=== PATIENT | female | born 1935 | race Caucasian/White ===

== ENCOUNTER → 2016-06-18 | Day surgery (SDC) | payer OTHER ==
[2016-06-02 12:40] VITALS: BMI 31.0
[~2016-06-18] VITALS: Ht 157.5 cm; Wt 77.3 kg
[~2016-06-18] MED LIST: AMLO-110 PO; APR10 PO; APR50 PO; CEFD300C2 PO; CLOP1TAB15 PO; EFF/375 PO; EpHEDrine SULFATE INJ 50 MG/ML AMP ONE; FURO-85 PO; INSUINJ14 SC; INSUINJ4 SC; LABETALOL HCL IV 5 MG/ML 20ML IV ONE; LIDOCAINE HCL 2% 2 ML VIAL (20MG/ML) ONE; LPR25 PO; LPT40 PO; LSN10 PO; LSN25 PO; MECL1TAB42 PO; METO25TA56 PO; MIDAZOLAM HCL 1 MG/ML 2ML VIAL ONE; ONDANSETRON INJ 2 MG/ML 2 ML VIAL ONE; PROPOFOL IV EMULSION 10 MG/ML 20 ML VIAL IV ONE; PXL/10 PO; SODIUM CHLORIDE 0.9% 500ML 500 ML IV ONE; VENL37.593 PO
[2016-06-18 14:55] VITALS: TEMP 36.8
[2016-06-18 14:58] VITALS: Ht 157.5 cm; Wt 77.3 kg
--- NOTE | 2016-06-18 16:13 | Discharge Instructions ---
Endoscopy Patient Instructions Date / Procedure(s) Performed Jun 18, 2016. EGD Allergy Information Coded Allergies: Acetaminophen (Verified Allergy, Unknown, SWEATING, 06/02/16) Amitriptyline (Verified Allergy, Unknown, BLURRED DOUBLE VISION, 06/02/16) Ciprofloxacin (Verified Allergy, Unknown, itshiness,red streak, 06/18/16) PT RECEIVED CIPRO 400MG IV. DEVELOPED ITCHINESS AND RED STREAKS UP ARM. CIPRO STOPPED, GIVEN BENADRYL 50 MG PO. tolerated Levaquin 12/25/13 admission Gabapentin (Verified Allergy, Unknown, SHAKES,VISION CHANGES, 06/02/16) Guaifenesin (Verified Allergy, Unknown, UNKNOWN, 06/02/16) Latex1 -Allergic Contact Dermititis (Verified Allergy, Unknown, SKIN GETS RAW-PT HAS NO RECOLLECTION, 06/02/16) Meloxicam (Verified Allergy, Unknown, DIARRHEA, 06/02/16) Metformin (Verified Allergy, Unknown, HOT FLASHES, 06/02/16) Metronidazole (Verified Allergy, Unknown, UNKNOWN, 06/02/16) Penicillins (Verified Allergy, Unknown, INJECTION UNKNOWN, 06/02/16) Pioglitazone (Verified Allergy, Unknown, SORE THROAT,EAts excessively, 06/02) Pregabalin (Verified Allergy, Unknown, DIZZINESS, SLEEPY, 06/02/16) Rofecoxib (Verified Allergy, Unknown, UNKNOWN, 06/02/16) Rosuvastatin (Verified Allergy, Unknown, UNKNOWN, 06/02/16) Simvastatin (Verified Allergy, Unknown, UNKNOWN, 06/02/16) Sulfa Antibiotics (Verified Allergy, Unknown, HIVES, 06/02/16) Tramadol (Verified Allergy, Unknown, SWEATING, 06/02/16) Tricyclic Antidepressants (Verified Allergy, Unknown, UNKNOWN, 06/02/16) Discharge Date / Findings Jun 18, 2016. gastritis duodenal stricture Medication Instructions Restart Stopped Medication(s): Reported Home Medications Medications Dose Route/Sig Max Daily Dose Days Date Category Dose Instructions Plavix (Clopidogrel Bisulfate) 75 Mg Tab 75 Mg PO DAILY 06/18/16 Reported Effexor (Venlafaxine Hcl) 37.5 Mg Tab 37.5 Mg PO QAM 11/06/15 Reported Lopressor (Metoprolol Tartrate) 25 Mg Tab 25 Mg PO BID 06/26/15 Reported Meclizine Hcl 25 Mg Tab 1 Tab PO TID PRN 06/26/15 Reported Norvasc (Amlodipine Besylate) 5 Mg Tab 5 Mg PO BID 02/01/15 Reported Lasix (Furosemide) 20 Mg Tab 20 Mg PO BID 02/01/15 Reported AM/1500 Hydralazine HCl 10 Mg Tab 10 Mg PO TID 02/01/15 Reported Paroxetine HCl (Paroxetine) 10 Mg Tab 20 Mg PO QAM 12/25/13 Reported Atorvastatin Calcium (Atorvastatin) 40 Mg Tab 40 Mg PO QAM 12/25/13 Reported Novolog Penfill (Insulin Aspart) 100 Unit/ Inj 12 Units SC TIDM 12/25/13 Reported Lantus Solostar Pen (Insulin Glargine) 100 Unit/ Inj 24 Units SC HS 12/25/13 Reported Prilosec 40 mg daily PO Reported Home Medications Medications Dose Route/Sig Max Daily Dose Days Date Category Dose Instructions Plavix (Clopidogrel Bisulfate) 75 Mg Tab 75 Mg PO DAILY 06/18/16 Reported Effexor (Venlafaxine Hcl) 37.5 Mg Tab 37.5 Mg PO QAM 11/06/15 Reported Lopressor (Metoprolol Tartrate) 25 Mg Tab 25 Mg PO BID 06/26/15 Reported Meclizine Hcl 25 Mg Tab 1 Tab PO TID PRN 06/26/15 Reported Norvasc (Amlodipine Besylate) 5 Mg Tab 5 Mg PO BID 02/01/15 Reported Lasix (Furosemide) 20 Mg Tab 20 Mg PO BID 02/01/15 Reported AM1500 Hydralazine HCl 10 Mg Tab 10 Mg PO TID 02/01/15 Reported Paroxetine HCl (Paroxetine) 10 Mg Tab 20 Mg PO QAM 12/25/13 Reported Atorvastatin Calcium (Atorvastatin) 40 Mg Tab 40 Mg PO QAM 12/25/13 Reported Novolog Penfill (Insulin Aspart) 100 Unit/ Inj 12 Units SC TIDM 12/25/13 Reported Lantus Solostar Pen (Insulin Glargine) 100 Unit/ Inj 24 Units SC HS 12/25/13 Reported Prilosec 40mg daily PO Provider Instructions Activity Restrictions - No exercising or heavy lifting for 24 hours. - Do not drink alcohol the day of the procedure. - Do not drive a car or operate machinery until the day after the procedure. - Do not make any important decisions or sign important papers in 24 hours after the procedure. Following Day: - Return to full activity which may include returning to work/school. Diet Start your diet with liquids and light foods (jello, soup, juice, toast). Then eat your usual diet if not nauseated. Treatment For Common After Affects For mild abdominal pain, bloating, or excessive gas: - Rest - Eat lightly - Lie on right side Follow-Up Information Follow-up with SEYMOUR Mims as scheduled Anesthesia Information What You Should Know You have had a procedure that required some medicine to reduce anxiety and discomfort. This treatment is called moderate sedation. After receiving the treatment, you may be sleepy, but you will be able to breathe on your own. The effects of the treatment may last for several hours. Follow these instructions along with Activity/Diet recommendations noted above: * Do NOT do anything where dizziness or clumsiness would be dangerous. * Rest quietly at home today, then you can be up and about tomorrow. * Have a responsible person stay with you the rest of today. * You may have had an I.V. today. If so, you may take the dressing off later today. Recommendations Call your doctor if: * Trouble breathing * Continuous vomiting for more than 24 hours * Temperature above 101 degrees * Severe abdominal pain or bloating * Pain not relieved by pain medicine ordered * There is increased drainage or redness from any incision * A large amount of rectal bleeding greater than 2-3 tablespoons. (If you had a polyp/s removed or have hemorrhoids, a small amount of blood - from the rectum is to be expected.) * You have any unanswered questions or concerns. IN THE EVENT OF A SERIOUS EMERGENCY, GO TO THE NEAREST EMERGENCY ROOM Your discharge instructions were prepared by provider Dre Deal. Patient Instructions Signature Page Traci Jay Patient (or Guardian) Signature/Date: I have read and understand the instructions given to me by my caregivers. Caregiver/RN/Doctor Signature/Date: The above-named patient and/or guardian has received patient instructions on this date. + Original Patient Signature Page (only) stays with chart. Please make copy for patient.
--- NOTE | 2016-06-18 16:23 | GI REPORT ---
Procedure Date: 06/18/2016 3:36 PM Procedure: Upper GI endoscopy Indications: Acute duodenal ulcer, Follow-up of acute duodenal ulcer Medicines: Propofol per Anesthesia Complications: No immediate complications. Estimated blood loss: Minimal. Estimated Blood Loss: Estimated blood loss was minimal. Procedure: Pre-Anesthesia Assessment: - Prior to the procedure, a History and Physical was performed, and patient medications and allergies were reviewed. The patient's tolerance of previous anesthesia was also reviewed. The risks and benefits of the procedure and the sedation options and risks were discussed with the patient. All questions were answered, and informed consent was obtained. Prior Anticoagulants: The patient has taken no previous anticoagulant or antiplatelet agents. ASA Grade Assessment: III - A patient with severe systemic disease. After reviewing the risks and benefits, the patient was deemed in satisfactory condition to undergo the procedure. After obtaining informed consent, the endoscope was passed under direct vision. Throughout the procedure, the patient's blood pressure, pulse, and oxygen saturations were monitored continuously. The scope was introduced through the mouth, and advanced to the third part of duodenum. The upper GI endoscopy was accomplished without difficulty. The patient tolerated the procedure well. Findings: The examined esophagus was normal. The Z-line was regular and was found 37 cm from the incisors. Localized mildly erythematous mucosa without bleeding was found in the gastric antrum. Estimated blood loss was minimal. Verification of patient identification for the specimen was done by the physician and security systems technician using the patient's name and medical record number. Biopsies were taken with a cold forceps for histology. The duodenal bulb was normal. An acquired benign-appearing, intrinsic moderate stenosis was found in the first part of the duodenum and was traversed. Biopsies were taken with a cold forceps for histology. Estimated blood loss was minimal. Verification of patient identification for the specimen was done by the physician and security systems technician using the patient's name and medical record number. The 3rd part of the duodenum was normal. Biopsies for histology were taken with a cold forceps for evaluation of celiac disease. Estimated blood loss was minimal. Verification of patient identification for the specimen was done by the physician and security systems technician using the patient's name and medical record number. The cardia and gastric fundus were normal on retroflexion. Retained gastric contents are not identified on this exam. Impression: - Normal esophagus. - Z-line regular, 37 cm from the incisors. - Erythematous mucosa in the antrum. Biopsied. - Normal duodenal bulb. - Acquired duodenal stenosis. Biopsied. - Normal 3rd part of the duodenum. Biopsied. Recommendation: - Patient has a contact number available for emergencies. The signs and symptoms of potential delayed complications were discussed with the patient. Return to normal activities tomorrow. Written discharge instructions were provided to the patient. - Advance diet as tolerated. - Use Prilosec (omeprazole) 40 mg PO daily. - Consider Hb if not recently performed. Active ulceration is not identified on this exam. - Return to referring physician as previously scheduled. - Await pathology results. MD Dre Rehman MD 06/18/2016 4:23:50 PM This report has been signed electronically. Note Initiated On: 06/18/2016 3:36 PM I attest to the content of the Intraoperative Record and orders documented therein, exceptions below
[2016-06-18 16:51] VITALS: BP 179/78; PULSE 65; O2SAT 95
--- NOTE | 2016-06-18 17:39 | Anesthesiology Progress Note ---
Anesthesia Post Op Note Date & Time Jun 18, 2016 at 17:39 Vital Signs Pain Intensity: 0 Vital Signs Past 12 Hours Date Time Temp Pulse Resp B/P Pulse Ox O2 Delivery O2 Flow Rate FiO2 06/18/16 16:37 65 20 173/79 97 Room Air 06/18/16 16:21 69 20 143/68 96 Room Air 06/18/16 14:55 36.8 70 20 179/79 99 Room Air Notes Mental Status: alert / awake / arousable, participated in evaluation Pt Amnestic to Procedure: Yes Nausea / Vomiting: adequately controlled Pain: adequately controlled Airway Patency, RR, SpO2: stable & adequate BP & HR: stable & adequate Hydration State: stable & adequate Anesthetic Complications: no major complications apparent
--- NOTE | 2016-06-24 15:48 | Endo History and Physical ---
History & Physical Date of Service: Jun 24, 2016. Chief Complaint: anemia Referring Physician: SEYMOUR Mims History of Present Illness anemia/ f/u ulcer Past Medical History Diabetes, Arthritis, Anxiety, High Cholesterol, Sleep Apnea, Hypertension, CVA/ TIA, Depression Past Surgical History Hx Cardiac Surgery: No Hx Internal Defibrillator: No Hx Pacemaker: No Hx Abdominal Surgery: Yes (RACHEL BSO, AWA) Hx of Implantable Prosthesis: No Hx Post-Op Nausea and Vomiting: No Hx Cancer Surgery: No Hx Thoracic Surgery: No Hx Orthopedic: Yes (RT DAVID) Hx Urinary Tract Surgery: Yes (BLADDER TACK, BLADDER SURGERY) Family History None Social History Smoking Status: Never Smoker Hx Substance Use: No Hx Alcohol Use: No Allergies Coded Allergies: Acetaminophen (Verified Allergy, Unknown, SWEATING, 06/02/16) Amitriptyline (Verified Allergy, Unknown, BLURRED DOUBLE VISION, 06/02/16) Ciprofloxacin (Verified Allergy, Unknown, itshiness,red streak, 06/18/16) PT RECEIVED CIPRO 400MG IV. DEVELOPED ITCHINESS AND RED STREAKS UP ARM. CIPRO STOPPED, GIVEN BENADRYL 50 MG PO. tolerated Levaquin 12/25/13 admission Gabapentin (Verified Allergy, Unknown, SHAKES,VISION CHANGES, 06/02/16) Guaifenesin (Verified Allergy, Unknown, UNKNOWN, 06/02/16) Latex1 -Allergic Contact Dermititis (Verified Allergy, Unknown, SKIN GETS RAW-PT HAS NO RECOLLECTION, 06/02/16) Meloxicam (Verified Allergy, Unknown, DIARRHEA, 06/02/16) Metformin (Verified Allergy, Unknown, HOT FLASHES, 06/02/16) Metronidazole (Verified Allergy, Unknown, UNKNOWN, 06/02/16) Penicillins (Verified Allergy, Unknown, INJECTION UNKNOWN, 06/02/16) Pioglitazone (Verified Allergy, Unknown, SORE THROAT,EAts excessively, 06/02) Pregabalin (Verified Allergy, Unknown, DIZZINESS, SLEEPY, 06/02/16) Rofecoxib (Verified Allergy, Unknown, UNKNOWN, 06/02/16) Rosuvastatin (Verified Allergy, Unknown, UNKNOWN, 06/02/16) Simvastatin (Verified Allergy, Unknown, UNKNOWN, 06/02/16) Sulfa Antibiotics (Verified Allergy, Unknown, HIVES, 06/02/16) Tramadol (Verified Allergy, Unknown, SWEATING, 06/02/16) Tricyclic Antidepressants (Verified Allergy, Unknown, UNKNOWN, 06/02/16) Current Medications Reported Home Medications Medications Dose Route/Sig Max Daily Dose Days Date Category Dose Instructions Plavix (Clopidogrel Bisulfate) 75 Mg Tab 75 Mg PO DAILY 06/18/16 Reported Effexor (Venlafaxine Hcl) 37.5 Mg Tab 37.5 Mg PO QAM 11/06/15 Reported Lopressor (Metoprolol Tartrate) 25 Mg Tab 25 Mg PO BID 06/26/15 Reported Meclizine Hcl 25 Mg Tab 1 Tab PO TID PRN 06/26/15 Reported Norvasc (Amlodipine Besylate) 5 Mg Tab 5 Mg PO BID 02/01/15 Reported Lasix (Furosemide) 20 Mg Tab 20 Mg PO BID 02/01/15 Reported AM/1500 Hydralazine HCl 10 Mg Tab 10 Mg PO TID 02/01/15 Reported Paroxetine HCl (Paroxetine) 10 Mg Tab 20 Mg PO QAM 12/25/13 Reported Atorvastatin Calcium (Atorvastatin) 40 Mg Tab 40 Mg PO QAM 12/25/13 Reported Novolog Penfill (Insulin Aspart) 100 Unit/ Inj 12 Units SC TIDM 12/25/13 Reported Lantus Solostar Pen (Insulin Glargine) 100 Unit/ Inj 24 Units SC HS 12/25/13 Reported Vital Signs Weight (Kilograms): 77.27 Height (Feet): 5 Height (Inches): 2 Physical Exam AAO x3 Nl s1s2 Lungs CTA Abd soft, NT/ND + BS - CCE Assessment and Plan EGD
== END | disposition home or self-care (01) ==
LOC: C.GI 13:34
PROVIDERS: ATTEND Internal Medicine Gastroenterology
DX: D64.9 Anemia, unspecified (principal); K26.3 Acute duodenal ulcer without hemorrhage or perforation; K29.70 Gastritis, unspecified, without bleeding

== ENCOUNTER 2016-06-25 16:27 | Inpatient (IN) | payer OTHER ==
[~2016-06-25] VITALS: Ht 157.5 cm; Wt 77.4 kg
[~2016-06-25 16:27] MED LIST changes: -APR50 PO; -CEFD300C2 PO; -EpHEDrine SULFATE INJ 50 MG/ML AMP ONE; -LABETALOL HCL IV 5 MG/ML 20ML IV ONE; -LIDOCAINE HCL 2% 2 ML VIAL (20MG/ML) ONE; -LPR25 PO; -LSN10 PO; -LSN25 PO; -MIDAZOLAM HCL 1 MG/ML 2ML VIAL ONE; -ONDANSETRON INJ 2 MG/ML 2 ML VIAL ONE; -PROPOFOL IV EMULSION 10 MG/ML 20 ML VIAL IV ONE; -SODIUM CHLORIDE 0.9% 500ML 500 ML IV ONE; -VENL37.593 PO
[2016-06-25] MEDS ORDERED: BUMETANIDE SOLN 1 MG/4 ML VIAL IV STA ×2 (17:45→21:35)
--- NOTE | 2016-06-25 17:50 | EMERGENCY ROOM VISIT NOTE ---
History Report prepared by Corby: Lexx Hernandez Under the Supervision of: Dr. David Tony M.D. First contact with patient: 17:40 Chief Complaint: SHORTNESS OF BREATH Stated Complaint: LOWER LEGS-EDEMA/SOB Nursing Triage Summary: Pt arrived to ER via ALS from Dr. Moura's office. Pt has recent bilateral +3 LE swelling and reports of dizziness/shortness of breath with exertion. Pt denies chest pain or other symptoms at this time. Pt uses a CPAP at night, but no O2 during the day. Pt ambulates with a cane and walker at home. Hx of CVA with foot drop. History of Present Illness The patient is a 81 year old female who presents to the Emergency Room with complaints of persistent bilateral leg edema and shortness of breath beginning about 5 days ago. She was brought in by EMS from Dr. Moura's office. The patient notes that the leg edema is worse in her left leg than her right. She notes she had been wearing compression socks before which helped to keep any swelling down, but thinks that her new ulcer medication worsened her swelling. Her legs have not swelled to this extent before. The patient notes taking 2 water pills daily, but denies taking any Coumadin. She reports having a headache , dizziness, cough, and infrequent urination. She adds that she has shortness of breath at baseline and uses a CPAP at night but no supplemental oxygen during the day. The patient denies any history of heart failure or OH, but reports a family history of OH. Source of History: patient Onset: about 5 days ago Position: leg (bilateral), other (lungs) Quality: other (leg swelling; SOB) Timing: other (persistent) Associated Symptoms: + cough, + headache, + urinary symptoms (infrequent) Note: The patient notes having dizziness. Review of Systems See HPI for pertinent positives & negatives. A total of 10 systems reviewed and were otherwise negative. Past Medical & Surgical Medical Problems: (1) Anxiety (2) Benign hypertension (3) Benign recurrent vertigo (4) CVA (cerebral vascular accident) (5) Depression (6) Diabetes mellitus type 2 (7) Gastroesophageal reflux disease (8) Hyperlipidemia (9) Melena (10) Spinal stenosis Surgical Problems: (1) H/O: hysterectomy (2) Hx of cataract surgery (3) Hx of cholecystectomy (4) Hx of tonsillectomy (5) Right total knee replacement (6) Tumor, thyroid Family History Heart disease Social History Smoking Status: Never Smoker Alcohol Use: none Marital Status: Housing Status: lives with significant other Current/Historical Medications Scheduled Amlodipine (Norvasc), 5 MG PO BID Atorvastatin (Atorvastatin Calcium), 40 MG PO QAM Clopidogrel (Plavix), 75 MG PO DAILY Furosemide (Lasix), 20 MG PO BID Hydralazine HCl (Hydralazine HCl), 10 MG PO TID Insulin Aspart (Novolog Penfill), 12 UNITS SC TIDM Insulin Glargine (Lantus Solostar Pen), 24 UNITS SC HS Metoprolol Tartrate (Lopressor) (Lopressor), 25 MG PO BID Paroxetine (Paroxetine HCl), 20 MG PO QAM Venlafaxine Hcl (Effexor), 37.5 MG PO QAM Scheduled PRN Meclizine Hcl (Meclizine Hcl), 1 TAB PO TID PRN for Dizziness or Vertigo Allergies Coded Allergies: Acetaminophen (Verified Allergy, Unknown, SWEATING, 06/25/16) Amitriptyline (Verified Allergy, Unknown, BLURRED DOUBLE VISION, 06/25/16) Ciprofloxacin (Verified Allergy, Unknown, itshiness,red streak, 06/25/16) PT RECEIVED CIPRO 400MG IV. DEVELOPED ITCHINESS AND RED STREAKS UP ARM. CIPRO STOPPED, GIVEN BENADRYL 50 MG PO. tolerated Levaquin 12/25/13 admission Gabapentin (Verified Allergy, Unknown, SHAKES,VISION CHANGES, 06/25/16) Guaifenesin (Verified Allergy, Unknown, UNKNOWN, 06/25/16) Latex1 -Allergic Contact Dermititis (Verified Allergy, Unknown, SKIN GETS RAW-PT HAS NO RECOLLECTION, 06/25/16) Meloxicam (Verified Allergy, Unknown, DIARRHEA, 06/25/16) Metformin (Verified Allergy, Unknown, HOT FLASHES, 06/25/16) Metronidazole (Verified Allergy, Unknown, UNKNOWN, 06/25/16) Penicillins (Verified Allergy, Unknown, INJECTION UNKNOWN, 06/25/16) Pioglitazone (Verified Allergy, Unknown, SORE THROAT,EAts excessively, ) Pregabalin (Verified Allergy, Unknown, DIZZINESS, SLEEPY, 06/25/16) Rofecoxib (Verified Allergy, Unknown, UNKNOWN, 06/25/16) Rosuvastatin (Verified Allergy, Unknown, UNKNOWN, 06/25/16) Simvastatin (Verified Allergy, Unknown, UNKNOWN, 06/25/16) Sulfa Antibiotics (Verified Allergy, Unknown, HIVES, 06/25/16) Tramadol (Verified Allergy, Unknown, SWEATING, 06/25/16) Tricyclic Antidepressants (Verified Allergy, Unknown, UNKNOWN, 06/25/16) Physical Exam Vital Signs Date Time Temp Pulse Resp B/P Pulse Ox O2 Delivery O2 Flow Rate FiO2 06/25/16 22:36 72 20 180/77 100 Room Air 06/25/16 21:28 71 16 171/71 95 Room Air 06/25/16 20:12 74 19 186/70 97 Room Air 06/25/16 17:58 70 20 179/125 96 Room Air 06/25/16 17:11 69 20 183/61 93 Room Air 06/25/16 16:48 70 06/25/16 16:41 98 Room Air 06/25/16 16:41 98 Room Air 06/25/16 16:41 37.1 76 20 183/61 98 Room Air Physical Exam GENERAL: Patient is in no acute distress. HEENT: No acute trauma, normocephalic atraumatic, mucous membranes moist, no nasal congestion, no scleral icterus. NECK: No stridor, no adenopathy, no meningismus, trachea is midline. LUNGS: Clear to auscultation bilaterally, no wheeze, no rhonchi, breath sounds equal. HEART: Without murmurs gallops or rubs, regular rate and rhythm. ABDOMEN: Soft, nontender, bowel sounds positive, no hernias, no peritonitis. EXTREMITIES: Significant bilateral pedal edema. No cellulitis. NEUROLOGIC: Oriented x 3, no acute motor or sensory deficits, no focal weakness. SKIN: No rash, no jaundice, no diaphoresis. Medical Decision & Procedures ER Provider Diagnostic Interpretation: Radiology results and stated below per my review and radiologist interpretation: CHEST ONE VIEW PORTABLE FINDINGS: The bones soft tissues and hemidiaphragms are normal. The cardiomediastinal silhouette is normal. The lungs are clear. The pulmonary vasculature is normal. IMPRESSION: Negative chest. Electronically signed by: Aristides Bower M.D. 06/25/2016 6:14 PM Dictated Date/Time: 06/25/2016 6:14 PM BILATERAL LOWER EXTREMITY VENOUS DOPPLER FINDINGS: There is normal compressibility, flow, and augmentation within the bilateral lower extremity deep venous systems. IMPRESSION: No DVT within the right or left lower extremity. Electronically signed by: Aristides Bower M.D. 06/25/2016 7:49 PM Dictated Date/Time: 06/25/2016 7:48 PM Laboratory Results 06/25/16 18:43 Red Blood Count 3.55, Mean Corpuscular Volume 91.0, Mean Corpuscular Hemoglobin 30.4, Mean Corpuscular Hemoglobin Concent 33.4, Mean Platelet Volume 9.6, Neutrophils (%) (Auto) 63.7, Lymphocytes (%) (Auto) 22.8, Monocytes (%) (Auto) 9.6, Eosinophils (%) (Auto) 3.0, Basophils (%) (Auto) 0.6, Neutrophils # (Auto) 7.00, Lymphocytes # (Auto) 2.51, Monocytes # (Auto) 1.06, Eosinophils # (Auto) 0.33, Basophils # (Auto) 0.07 06/25/16 18:43 Test 06/25/16 18:43 06/25/16 21:20 White Blood Count 11.00 K/uL (4.8-10.8) Red Blood Count 3.55 M/uL (4.2-5.4) Hemoglobin 10.8 g/dL (12.0-16.0) Hematocrit 32.3 % (37-47) Mean Corpuscular Volume 91.0 fL (80-100) Mean Corpuscular Hemoglobin 30.4 pg (25-34) Mean Corpuscular Hemoglobin Concent 33.4 g/dl (32-36) Platelet Count 378 K/uL (130-400) Mean Platelet Volume 9.6 fL (7.4-10.4) Neutrophils (%) (Auto) 63.7 % Lymphocytes (%) (Auto) 22.8 % Monocytes (%) (Auto) 9.6 % Eosinophils (%) (Auto) 3.0 % Basophils (%) (Auto) 0.6 % Neutrophils # (Auto) 7.00 K/uL (1.4-6.5) Lymphocytes # (Auto) 2.51 K/uL (1.2-3.4) Monocytes # (Auto) 1.06 K/uL (0.11-0.59) Eosinophils # (Auto) 0.33 K/uL (0-0.5) Basophils # (Auto) 0.07 K/uL (0-0.2) RDW Standard Deviation 47.2 fL (36.4-46.3) RDW Coefficient of Variation 14.1 % (11.5-14.5) Immature Granulocyte % (Auto) 0.3 % Immature Granulocyte # (Auto) 0.03 K/uL (0.00-0.02) Prothrombin Time 9.9 SECONDS (9.0-12.0) Prothromb Time International Ratio 0.9 (0.9-1.1) Activated Partial Thromboplast Time 25.0 SECONDS (21.0-31.0) Partial Thromboplastin Ratio 1.0 Anion Gap 8.0 mmol/L (3-11) Est Creatinine Clear Calc Drug Dose 34.3 ml/min Estimated GFR () 44.9 Estimated GFR (Non- 38.7 BUN/Creatinine Ratio 20.2 (10-20) Calcium Level 8.2 mg/dl (8.5-10.1) Magnesium Level 2.4 mg/dl (1.8-2.4) Total Bilirubin 0.2 mg/dl (0.2-1) Aspartate Amino Transf (AST/SGOT) 21 U/L (15-37) Alanine Aminotransferase (ALT/SGPT) 22 U/L (12-78) Alkaline Phosphatase 116 U/L (45-117) Troponin I 0.023 ng/ml (0-0.045) Total Protein 6.4 gm/dl (6.4-8.2) Albumin 2.9 gm/dl (3.4-5.0) Globulin 3.5 gm/dl (2.5-4.0) Albumin/Globulin Ratio 0.8 (0.9-2) Thyroid Stimulating Hormone (TSH) 1.610 uIu/ml (0.300-4.500) Urine Color YELLOW Urine Appearance CLEAR (CLEAR) Urine pH 5.5 (4.5-7.5) Urine Specific [place] 1.013 (1.000-1.030) Urine Protein 3+ (NEG) Urine Glucose (UA) TRACE (NEG) Urine Ketones NEG (NEG) Urine Occult Blood NEG (NEG) Urine Nitrite NEG (NEG) Urine Bilirubin NEG (NEG) Urine Urobilinogen NEG (NEG) Urine Leukocyte Esterase TRACE (NEG) Urine WBC (Auto) 5-10 /hpf (0-5) Urine RBC (Auto) 0-4 /hpf (0-4) Urine Hyaline Casts (Auto) 1-5 /lpf (0-5) Urine Epithelial Cells (Auto) 20-30 /lpf (0-5) Urine Bacteria (Auto) NEG (NEG) Laboratory results reviewed by me. Medications Administered Medications (Trade) Dose Ordered Sig/Betsy Route Start Time Stop Time Status Last Admin Dose Admin Bumetanide (Bumex IV) 1 mg NOW STAT IV 06/25/16 17:45 06/25/16 17:48 DC 06/25/16 20:14 1 MG Nitroglycerin (Nitroglycerin 2% Oint) 2 inch NOW STAT EXT 06/25/16 19:26 06/25/16 19:27 DC 06/25/16 20:15 2 INCH Bumetanide (Bumex IV) 1 mg NOW STAT IV 06/25/16 21:35 06/25/16 21:36 DC 06/25/16 23:40 1 MG Potassium Chloride (Klor-Con M10) 40 meq NOW STAT PO 06/25/16 21:39 06/25/16 21:40 DC 06/25/16 23:41 40 MEQ Metoprolol Tartrate (Lopressor Tab) 50 mg NOW STAT PO 06/25/16 21:20 06/25/16 21:35 DC 06/25/16 23:41 50 MG ECG Indication: SOB/dyspnea, other (leg swelling) Rate (beats per minute): 71 Rhythm: normal sinus Findings: other (baseline artifact; ST flattening laterally) Comparison ECG Date: 01/01/16 Change: no significant change ED Course 1742: The patient was evaluated in room B4A. A complete history and physical exam was performed. 1744: Ordered Bumetanide 1 mg IV. 1925: Ordered Nitroglycerin 2 inch EXT. 2024: Discussed the patient's case with Dr. Ramsay. The patient will be evaluated for further management. 2034: I updated the patient. Medical Decision Differentials include venous insufficiency, fluid overload, DVT, medication reaction, anemia, renal failure, electrolyte imbalance, and CHF. There is no leukocytosis, no worrisome anemia. No significant electrolyte abnormality, kidney failure or hepatitis. The patient appears to be in a euthyroid state. Urinalysis does not show evidence for infection. Chest x-ray shows no CHF or pneumonia. There was no pneumothorax. EKG showed a normal sinus rhythm, no acute ischemic change. Cardiac enzyme testing times one is not consistent with acute cardiac injury. Bilateral lower extremity ultrasound does not show evidence for DVT. The patient was given nitro paste, this helped her blood pressure and her breathing. She was given IV Bumex and she did diurese. The patient presents short of breath and weak. She is fluid overloaded. She requires diuresis. I did speak with the patient and case management. The on- call hospitalist was consulted. Consults Time Called: 2004 Consulting Physician: Dr. Ramsay, [facility] [place] Returned Call: 2024 Discussed the patient's case with Dr. Ramsay. The patient will be evaluated for further management. Impression Primary Impression: SOB (shortness of breath) Additional Impressions: Hypertensive urgency Fluid overload Pedal edema Scribe Attestation The scribe's documentation has been prepared under my direction and personally reviewed by me in its entirety. I confirm that the note above accurately reflects all work, treatment, procedures, and medical decision making performed by me. Departure Information Dispostion Being Evaluated By Hospitalist Referrals Afia Villa (PCP) Patient Instructions My [facility] Problem Qualifiers
--- NOTE | 2016-06-25 18:15 | DIAGNOSTIC IMAGING REPORT ---
CHEST ONE VIEW PORTABLE CLINICAL HISTORY: EVALUATE RESPIRATORY DISTRESS. DYSPNEA dyspnea COMPARISON STUDY: 12/06/2014 FINDINGS: The bones soft tissues and hemidiaphragms are normal. The cardiomediastinal silhouette is normal. The lungs are clear. The pulmonary vasculature is normal. IMPRESSION: Negative chest. Electronically signed by: Aristides Bower M.D. 06/25/2016 6:14 PM Dictated Date/Time: 06/25/2016 6:14 PM
[2016-06-25 19:13] LABS: HEMATOCRIT 32.3 % (37-47); MEAN CORPUSCULAR HEMOGLOBIN 30.4 pg (25-34); MEAN CORPUSCULAR HGB CONC 33.4 g/dl (32-36); MEAN PLATELET VOLUME 9.6 fL (7.4-10.4); PLATELET COUNT 378 K/uL (130-400); RED BLOOD COUNT 3.55 M/uL (4.2-5.4)
[2016-06-25] MEDS ORDERED: NITROGLYCERIN OINT 2% 1GM PACKET EXT STA (19:26)
[2016-06-25 19:27] LABS: INR 0.9 (0.9-1.1); PROTHROMBIN TIME (PATIENT) 9.9 SECONDS (9.0-12.0)
[2016-06-25 19:38] LABS: BASO % 0.6 %; BASO ABS # 0.07 K/uL (0-0.2); COMPLETE YES; IG% 0.3 %; LYMPH % 22.8 %; LYMPH ABS # 2.51 K/uL (1.2-3.4); MONO % 9.6 %; NEUT % 63.7 %
[2016-06-25 19:48] LABS: BUN/CREATININE RATIO 20.2 (10-20); CALCIUM 8.2 mg/dl (8.5-10.1); CREATININE 1.3 mg/dl (0.60-1.20); MAGNESIUM 2.4 mg/dl (1.8-2.4); POTASSIUM 3.5 mmol/L (3.5-5.1)
--- NOTE | 2016-06-25 19:50 | DIAGNOSTIC IMAGING REPORT ---
BILATERAL LOWER EXTREMITY VENOUS DOPPLER HISTORY: Pain. Edema. swelling, sob COMPARISON STUDY: 08/27/2005 FINDINGS: There is normal compressibility, flow, and augmentation within the bilateral lower extremity deep venous systems. IMPRESSION: No DVT within the right or left lower extremity. Electronically signed by: Aristides Bower M.D. 06/25/2016 7:49 PM Dictated Date/Time: 06/25/2016 7:48 PM
[2016-06-25 19:59] LABS: ALB/GLOB RATIO 0.8 (0.9-2); THYROID STIMULATING HORMONE 1.61 uIu/ml (0.300-4.500)
[2016-06-25] MEDS ORDERED: BUMETANIDE SOLN 1 MG/4 ML VIAL IV ONE ×2 (20:16→23:44)
[2016-06-25] MEDS ORDERED: MECLIZINE HCL 25 MG TAB PO PRN (21:15)
[2016-06-25] MEDS ORDERED: ZOLPIDEM TARTRATE 5 MG TAB PO PRN (21:15)
[2016-06-25] MEDS ORDERED: NITROGLYCERIN 0.4 MG SL PER TAB CHARGE SL PRN (21:15)
[2016-06-25] MEDS ORDERED: METOPROLOL TARTRATE 50 MG TAB PO STA (21:20)
[2016-06-25] MEDS ORDERED: POTASSIUM CHLORIDE 10 MEQ TABCR PO STA (21:39)
[2016-06-25 21:46] LABS: URINE APPEARANCE CLEAR (CLEAR); URINE BILIRUBIN NEG (NEG); URINE COLOR YELLOW; URINE EPITHELIAL CELL AUTO 20-30 /lpf (0-5); URINE NITRITE NEG (NEG); URINE PH 5.5 (4.5-7.5); URINE SPECIFIC GRAVITY 1.013 (1.000-1.030); UROBILINOGEN NEG (NEG); ZZUR CULT IF INDIC CLEAN CATCH NO
[2016-06-25 21:50] LABS: MANUAL MICROSCOPIC REQUIRED? NO; REVIEW REQ? NO
--- NOTE | 2016-06-25 22:27 | History and Physical ---
History & Physical Date & Time of Service: Jun 25, 2016 at 22:28 Chief Complaint: Lower Legs-Edema/Sob Primary Care Physician: Afia Villa History of Present Illness Source: patient The patient is an 81-year-old female sent into the emergency room from Dr. Moura's office due to worsening bilateral lower extremity edema and shortness of breath that began about 5 days prior to arrival. She had previously been wearing compression stockings. She is concerned that her new ulcer medication has worsened the swelling. She also reports having a headache, dizziness, cough and decreased frequency of urination. She uses CPAP at night but no supplemental oxygen during the day. She reports that her legs are bigger now than they ever have been in her life. Past Medical/Surgical History Medical Problems: (1) Anxiety Status: Chronic (2) Benign hypertension Status: Chronic (3) Benign recurrent vertigo Status: Chronic (4) CVA (cerebral vascular accident) Status: Resolved (5) Depression Status: Chronic (6) Diabetes mellitus type 2 Status: Chronic (7) Gastroesophageal reflux disease Status: Chronic (8) Hyperlipidemia Status: Chronic (9) Spinal stenosis Status: Chronic Surgical Problems: (1) H/O: hysterectomy Status: Resolved (2) Hx of cataract surgery Status: Resolved (3) Hx of cholecystectomy Status: Resolved (4) Hx of tonsillectomy Status: Resolved (5) Right total knee replacement Status: Resolved (6) Tumor, thyroid Status: Resolved Family History Heart disease Social History Smoking Status: Never Smoker Smokeless Tobacco Use: No Alcohol Use: none Drug Use: none Marital Status: Housing status: lives with family Immunizations History of Influenza Vaccine: Yes History of Tetanus Vaccine?: Yes History of Pneumococcal: Yes History of Hepatitis B Vaccine: No Multi-Drug Resistant Organisms History of MDRO: No Allergies Coded Allergies: Acetaminophen (Verified Allergy, Unknown, SWEATING, 06/25/16) Amitriptyline (Verified Allergy, Unknown, BLURRED DOUBLE VISION, 06/25/16) Ciprofloxacin (Verified Allergy, Unknown, itshiness,red streak, 06/25/16) PT RECEIVED CIPRO 400MG IV. DEVELOPED ITCHINESS AND RED STREAKS UP ARM. CIPRO STOPPED, GIVEN BENADRYL 50 MG PO. tolerated Levaquin 12/25/13 admission Gabapentin (Verified Allergy, Unknown, SHAKES,VISION CHANGES, 06/25/16) Guaifenesin (Verified Allergy, Unknown, UNKNOWN, 06/25/16) Latex1 -Allergic Contact Dermititis (Verified Allergy, Unknown, SKIN GETS RAW-PT HAS NO RECOLLECTION, 06/25/16) Meloxicam (Verified Allergy, Unknown, DIARRHEA, 06/25/16) Metformin (Verified Allergy, Unknown, HOT FLASHES, 06/25/16) Metronidazole (Verified Allergy, Unknown, UNKNOWN, 06/25/16) Penicillins (Verified Allergy, Unknown, INJECTION UNKNOWN, 06/25/16) Pioglitazone (Verified Allergy, Unknown, SORE THROAT,EAts excessively, ) Pregabalin (Verified Allergy, Unknown, DIZZINESS, SLEEPY, 06/25/16) Rofecoxib (Verified Allergy, Unknown, UNKNOWN, 06/25/16) Rosuvastatin (Verified Allergy, Unknown, UNKNOWN, 06/25/16) Simvastatin (Verified Allergy, Unknown, UNKNOWN, 06/25/16) Sulfa Antibiotics (Verified Allergy, Unknown, HIVES, 06/25/16) Tramadol (Verified Allergy, Unknown, SWEATING, 06/25/16) Tricyclic Antidepressants (Verified Allergy, Unknown, UNKNOWN, 06/25/16) Home Medications Scheduled Amlodipine (Norvasc), 5 MG PO BID Atorvastatin (Atorvastatin Calcium), 40 MG PO QAM Clopidogrel (Plavix), 75 MG PO DAILY Furosemide (Lasix), 20 MG PO BID Hydralazine HCl (Hydralazine HCl), 10 MG PO TID Insulin Aspart (Novolog Penfill), 12 UNITS SC TIDM Insulin Glargine (Lantus Solostar Pen), 24 UNITS SC HS Metoprolol Tartrate (Lopressor) (Lopressor), 25 MG PO BID Paroxetine (Paroxetine HCl), 20 MG PO QAM Venlafaxine Hcl (Effexor), 37.5 MG PO QAM Scheduled PRN Meclizine Hcl (Meclizine Hcl), 1 TAB PO TID PRN for Dizziness or Vertigo Review of Systems The patient denies chest pain, palpitations, cough, vision change, hearing change, sore throat, fevers, chills, sweats, nausea, vomiting, abdominal pain, pelvic pain, blood in urine or stool, dysuria, urinary frequency or urgency, lightheadedness, dizziness, headache, memory loss, rash, abnormal bruising or bleeding, imbalance, focal weakness, numbness or tingling in arms or legs, arthralgias or myalgias, back or neck pain, night sweats, or allergy symptoms. The review of systems is otherwise negative other than for that already noted above, and at least 10 systems have been reviewed. Physical Exam Vital Signs Date Time Temp Pulse Resp B/P Pulse Ox O2 Delivery O2 Flow Rate FiO2 06/25/16 21:28 71 16 171/71 95 Room Air 06/25/16 20:12 74 19 186/70 97 Room Air 06/25/16 17:58 70 20 179/125 96 Room Air 06/25/16 17:11 69 20 183/61 93 Room Air 06/25/16 16:48 70 06/25/16 16:41 98 Room Air 06/25/16 16:41 98 Room Air 06/25/16 16:41 37.1 76 20 183/61 98 Room Air The patient is awake, well-developed and adequately nourished, alert and oriented 3, normocephalic and atraumatic, lying in bed and in no acute distress. HEENT--PERRL, EOMI, mucous membranes and oropharynx normal . Neck--supple, no JVD or bruits, thyroid normal, trachea midline, no adenopathy. Heart--normal S1 and S2, no extra beats, no murmurs, rubs or gallops. Lungs--clear bilaterally. no respiratory distress, no accessory muscle use. Abdomen--normal bowel sounds and soft, nontender and nondistended, no hernias or masses, no organomegaly. Extremities--no cyanosis, clubbing. There is bilaterally pretibially 2-3+ pitting Edema. There are good distal pulses b/l. Dermatologic--normal skin turgor, normal color, warm and dry, no abnormal lymph nodes, no rash. Neurologic--cranial nerves II through XII grossly intact, motor and sensory examination normal. Rheumatologic--normal range of motion, nontender, muscles and joints. Psychiatric--normal affect. Diagnostics Laboratory Results Results Past 24 Hours Test 06/25/16 18:43 06/25/16 21:20 Range/Units White Blood Count 11.00 4.8-10.8 K/uL Red Blood Count 3.55 4.2-5.4 M/uL Hemoglobin 10.8 12.0-16.0 g/dL Hematocrit 32.3 37-47 % Mean Corpuscular Volume 91.0 80-100 fL Mean Corpuscular Hemoglobin 30.4 25-34 pg Mean Corpuscular Hemoglobin Concent 33.4 32-36 g/dl Platelet Count 378 130-400 K/uL Mean Platelet Volume 9.6 7.4-10.4 fL Neutrophils (%) (Auto) 63.7 % Lymphocytes (%) (Auto) 22.8 % Monocytes (%) (Auto) 9.6 % Eosinophils (%) (Auto) 3.0 % Basophils (%) (Auto) 0.6 % Neutrophils # (Auto) 7.00 1.4-6.5 K/uL Lymphocytes # (Auto) 2.51 1.2-3.4 K/uL Monocytes # (Auto) 1.06 0.11-0.59 K/uL Eosinophils # (Auto) 0.33 0-0.5 K/uL Basophils # (Auto) 0.07 0-0.2 K/uL RDW Standard Deviation 47.2 36.4-46.3 fL RDW Coefficient of Variation 14.1 11.5-14.5 % Immature Granulocyte % (Auto) 0.3 % Immature Granulocyte # (Auto) 0.03 0.00-0.02 K/uL Prothrombin Time 9.9 9.0-12.0 SECONDS Prothromb Time International Ratio 0.9 0.9-1.1 Activated Partial Thromboplast Time 25.0 21.0-31.0 SECONDS Partial Thromboplastin Ratio 1.0 Sodium Level 142 136-145 mmol/L Potassium Level 3.5 3.5-5.1 mmol/L Chloride Level 106 98-107 mmol/L Carbon Dioxide Level 28 21-32 mmol/L Anion Gap 8.0 3-11 mmol/L Blood Urea Nitrogen 26 7-18 mg/dl Creatinine 1.30 0.60-1.20 mg/dl Est Creatinine Clear Calc Drug Dose 34.3 ml/min Estimated GFR () 44.9 Estimated GFR (Non- 38.7 BUN/Creatinine Ratio 20.2 10-20 Random Glucose 133 70-99 mg/dl Calcium Level 8.2 8.5-10.1 mg/dl Magnesium Level 2.4 1.8-2.4 mg/dl Total Bilirubin 0.2 0.2-1 mg/dl Aspartate Amino Transf (AST/SGOT) 21 15-37 U/L Alanine Aminotransferase (ALT/SGPT) 22 12-78 U/L Alkaline Phosphatase 116 45-117 U/L Troponin I 0.023 0-0.045 ng/ml Total Protein 6.4 6.4-8.2 gm/dl Albumin 2.9 3.4-5.0 gm/dl Globulin 3.5 2.5-4.0 gm/dl Albumin/Globulin Ratio 0.8 0.9-2 Thyroid Stimulating Hormone (TSH) 1.610 0.300-4.500 uIu/ml Urine Color YELLOW Urine Appearance CLEAR CLEAR Urine pH 5.5 4.5-7.5 Urine Specific [place] 1.013 1.000-1.030 Urine Protein 3+ NEG Urine Glucose (UA) TRACE NEG Urine Ketones NEG NEG Urine Occult Blood NEG NEG Urine Nitrite NEG NEG Urine Bilirubin NEG NEG Urine Urobilinogen NEG NEG Urine Leukocyte Esterase TRACE NEG Urine WBC (Auto) 5-10 0-5 /hpf Urine RBC (Auto) 0-4 0-4 /hpf Urine Hyaline Casts (Auto) 1-5 0-5 /lpf Urine Epithelial Cells (Auto) 20-30 0-5 /lpf Urine Bacteria (Auto) NEG NEG Diagnostic Radiology Patient Name: GHASSAN MARR Unit Number: [id number] Dictated: 06/25/161947 Transcribed: 06/25/161947 MS Printed Date/Time: [~ rep prt dt]/[~ rep prt tm] [~ rep ct labl] - [~ rep ct ivnm] [facility] [place] [place] [address] Dictated: 06/25/161947 Transcribed: 06/25/161947 MS Printed Date/Time: [~ rep prt dt]/[~ rep prt tm] [~ rep ct labl] - [~ rep ct ivnm] BILATERAL LOWER EXTREMITY VENOUS DOPPLER HISTORY: Pain. Edema. swelling, sob COMPARISON STUDY: 08/27/2005 FINDINGS: There is normal compressibility, flow, and augmentation within the bilateral lower extremity deep venous systems. IMPRESSION: No DVT within the right or left lower extremity. Electronically signed by: Aristides Bower M.D. 06/25/2016 7:49 PM Dictated Date/Time: 06/25/2016 7:48 PM The status of this report is Signed. Draft = Not yet reviewed or approved by Radiologist. Signed = Reviewed and approved by Radiologist. <AttendingPhy></AttendingPhy> <FamilyPhy>Afia VillaN.P.</FamilyPhy> < PrimaryPhy>Afia VillaN.P.</PrimaryPhy> <UnitNumber>[id number]</ UnitNumber> <VisitNumber>[id number]</VisitNumber> <PatientName>GHASSAN MARR</PatientName> <DateOfBirth>1935</DateOfBirth> <Location>[facility]</ Location> <ServiceDate>06/25/16</ServiceDate> <MNE>ESINDI</MNE> <OrderingPhy> David Tony M.D.</OrderingPhy> <OrderingPhyMNE>f rep ord dr gross</ OrderingPhyMNE> <DictatingPhyMNE>f rep dict dr gross</DictatingPhyMNE> <CCListMNE> f rep ct mne</CCListMNE> <AdmittingPhyMNE>f pt admit dr gross</AdmittingPhyMNE> < AttendingPhyMNE>f pt attend dr gross</AttendingPhyMNE> <ConsultingPhyMNE>f pt consult dr gross</ConsultingPhyMNE> <FamilyPhyMNE>f pt fam dr gross</FamilyPhyMNE> <OtherPhyMNE>f pt other dr gross</OtherPhyMNE> < PrimaryPhyMNE>f pt prim care dr gross</PrimaryPhyMNE> <ReferringPhyMNE>f pt referring dr gross</ReferringPhyMNE> Patient Name: GHASSAN MARR Unit Number: [id number] Dictated: 06/25/161813 Transcribed: 06/25/161813 MS Printed Date/Time: [~ rep prt dt]/[~ rep prt tm] [~ rep ct labl] - [~ rep ct ivnm] [facility] [place] [address] Dictated: 06/25/161813 Transcribed: 06/25/161813 MS Printed Date/Time: [~ rep prt dt]/[~ rep prt tm] [~ rep ct labl] - [~ rep ct ivnm] [~ rep ct add3]] CHEST ONE VIEW PORTABLE CLINICAL HISTORY: EVALUATE RESPIRATORY DISTRESS. DYSPNEA dyspnea COMPARISON STUDY: 12/06/2014 FINDINGS: The bones soft tissues and hemidiaphragms are normal. The cardiomediastinal silhouette is normal. The lungs are clear. The pulmonary vasculature is normal. IMPRESSION: Negative chest. Electronically signed by: Aristides Bower M.D. 06/25/2016 6:14 PM Dictated Date/Time: 06/25/2016 6:14 PM The status of this report is Signed. Draft = Not yet reviewed or approved by Radiologist. Signed = Reviewed and approved by Radiologist. <AttendingPhy></AttendingPhy> <FamilyPhy>Afia VillaN.PAngie</FamilyPhy> < PrimaryPhy>Afia VillaNAngieP.</PrimaryPhy> <UnitNumber>[id number]</ UnitNumber> <VisitNumber>[id number]</VisitNumber> <PatientName>GHASSAN MARR</PatientName> <DateOfBirth>1935</DateOfBirth> <Location>C.ED[facility]</ Location> <ServiceDate>06/25/16</ServiceDate> <MNE>ESINDI</MNE> <OrderingPhy> David Tony M.D.</OrderingPhy> <OrderingPhyMNE>f rep ord dr gross</ OrderingPhyMNE> <DictatingPhyMNE>f rep dict dr gross</DictatingPhyMNE> <CCListMNE> f rep ct mne</CCListMNE> <AdmittingPhyMNE>f pt admit dr gross</AdmittingPhyMNE> < AttendingPhyMNE>f pt attend dr gross</AttendingPhyMNE> <ConsultingPhyMNE>f pt consult dr gross</ConsultingPhyMNE> <FamilyPhyMNE>f pt fam dr gross</FamilyPhyMNE> <OtherPhyMNE>f pt other dr gross</OtherPhyMNE> < PrimaryPhyMNE>f pt prim care dr gross</PrimaryPhyMNE> <ReferringPhyMNE>f pt referring dr gross</ReferringPhyMNE> EKG EKG shows normal sinus rhythm at 71 bpm, 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 Impression Assessment and Plan Fluid overload/elevated blood pressure--the patient will be admitted to the telemetry unit, for serial cardiac enzymes, cardiac rhythm monitoring and a 2-D echocardiogram with Dopplers. She has already been given Bumex 1 mg IV in the emergency department, and will be given a second 1 mg dose IV now. Placed on albumin 25 g IV 4 times a day for 4 doses, Bumex 2 mg IV twice a day. Decrease amlodipine from 5 mg twice a day to 2.5 mg twice a day, continue hydralazine 10 mg by mouth 3 times a day, and increase metoprolol tartrate from 25 mg by mouth twice a day to 50 mg by mouth twice a day. Continue the nitro paste 1 inch to anterior chest wall every 6 hours begun in the emergency department. Hold furosemide 20 mg by mouth twice a day. Cerebrovascular disease/history of CVA--continue clopidogrel 75 mg by mouth daily. Diabetes mellitus--continue Lantus insulin 24 units subcutaneous at bedtime, DC standing order NovoLog 12 units subcutaneous 3 times a day with meals, and place on Accu-Cheks before meals and at bedtime with NovoLog coverage scale. Depression--continue Peroxin fluoxetine 20 mg by mouth every morning and Effexor XR 37.5 mg by mouth every morning. Hypercholesterolemia--continue atorvastatin 40 mg by mouth every morning. Level of Care Telemetry Advanced Directives Existing Advance Directive: No Existing Living Will: No Existing Power of Instructor Flying: No Resuscitation Status FULL RESUSCITATION VTE Prophylaxis VTE Risk Assessment Done? Y/N: Yes Risk Level: Moderate Given or contraindicated: SCD's
[2016-06-25] MEDS ORDERED: BUMETANIDE 1 MG TAB ONE (23:42)
[2016-06-25] MEDS ORDERED: METOPROLOL TARTRATE 50 MG TAB ONE (23:43)
[2016-06-26] VITALS (11 sets, daily range): BP systolic 154–191; BP diastolic 65–78; PULSE 60–73; TEMP 36.4–36.8; O2SAT 97–100; Ht 157.5 cm; Wt 77.4 kg
[2016-06-26] MEDS ORDERED: POTASSIUM CHLORIDE 10 MEQ TABCR PO ONE (02:00)
[2016-06-26] MEDS: ALBUMIN HUMAN 25% 12.5 GM/50 ML VIAL IV SCH ×4 (02:00→19:53)
[2016-06-26] MEDS: NITROGLYCERIN OINT 2% 1GM PACKET EXT SCH ×4 (02:00→19:38)
[2016-06-26] MEDS ORDERED: GLUCOSE 10 TABS/TUBE PO PRN (02:15)
[2016-06-26] MEDS ORDERED: GLUCAGON FOR INJ 1 MG VIAL SQ PRN (02:15)
[2016-06-26] MEDS ORDERED: DEXTROSE 50% 50 ML SYR IV PRN (02:15)
[2016-06-26] MEDS ORDERED: GLUCOSE 40% GEL 15 GM TUBE PO PRN (02:15)
[2016-06-26] MEDS: POTASSIUM CHLORIDE 20 MEQ TABCR PO SCH ×2 (08:21→20:43)
[2016-06-26] MEDS: BUMETANIDE IV 2 MG in SYRINGE 0 ML IV SCH ×2 (08:21→17:18)
[2016-06-26] MEDS: AMLODIPINE BESYLATE 5 MG TAB PO SCH ×2 (08:22→20:44)
[2016-06-26] MEDS: CLOPIDOGREL BISULFATE 75 MG TAB PO SCH (08:22)
[2016-06-26] MEDS: ATORVASTATIN 40 MG TAB PO SCH (08:22)
[2016-06-26] MEDS: METOPROLOL TARTRATE 50 MG TAB PO SCH ×2 (08:23→20:44)
[2016-06-26] MEDS: VENLAFAXINE HCL 37.5 MG TAB PO SCH (08:23)
[2016-06-26] MEDS: PAROXETINE 20 MG TAB PO SCH (08:23)
[2016-06-26] MEDS: INSULIN ASPART 100 UNITS/ML 3 ML PEN SC SCH ×4 (08:26→20:51)
[2016-06-26 09:10] LABS: BASO % 0.9 %; BASO ABS # 0.08 K/uL (0-0.2); COMPLETE YES; EOS % 3.7 %; HEMATOCRIT 30.6 % (37-47); IG% 0.2 %; LYMPH % 18.5 %; LYMPH ABS # 1.61 K/uL (1.2-3.4); MEAN CELL VOLUME 90.8 fL (80-100); MEAN CORPUSCULAR HEMOGLOBIN 30.6 pg (25-34); MEAN CORPUSCULAR HGB CONC 33.7 g/dl (32-36); MEAN PLATELET VOLUME 9.2 fL (7.4-10.4); MONO % 8.3 %; NEUT % 68.4 %; PLATELET COUNT 335 K/uL (130-400); RED BLOOD COUNT 3.37 M/uL (4.2-5.4); WHITE BLOOD COUNT 8.68 K/uL (4.8-10.8)
[2016-06-26 09:35] LABS: BUN/CREATININE RATIO 19.5 (10-20); CALCIUM 8.3 mg/dl (8.5-10.1); CREATININE 1.2 mg/dl (0.60-1.20); MAGNESIUM 2.4 mg/dl (1.8-2.4)
[2016-06-26] MEDS: HydrALAZINE HCL 20 MG/ML VIAL IV. PRN ×2 (11:21→23:55)
--- NOTE | 2016-06-26 14:16 | Hospitalist Progress Note ---
Hospitalist Progress Note Date of Service Jun 26, 2016. Subjective Pt evaluation today including: conversation w/ patient, physical exam, chart review, lab review, review of studies, review of inpatient medication list Patient seen and evaluated. No acute events overnight. Resolution of headache, dizziness, and decreased urination. Does have chronic shortness of breath which is at baseline. Some improvement with bilateral lower extremity edema but not at baseline yet. Patient complaining of left shoulder pain that has been ongoing. Constitutional: No chills, No fever Respiratory: + cough, No shortness of breath, No sputum Cardiovascular: No chest pain Abdomen: No constipation, No diarrhea, No nausea, No pain, No vomiting Musculoskeletal: + swelling (bilateral), No calf pain Female : No dysuria Skin: No rash Medications Current Inpatient Medications Medications (Trade) Dose Ordered Sig/Betsy Route Start Time Stop Time Status Last Admin Dose Admin Zolpidem Tartrate (Ambien Tab) 5 mg HSZ PRN PO 06/25/16 21:15 07/25/16 21:14 Nitroglycerin (Nitrostat Tab) 0.4 mg UD PRN SL 06/25/16 21:15 07/25/16 21:14 Amlodipine Besylate (Norvasc Tab) 2.5 mg BID PO 06/26/16 09:00 07/26/16 08:59 06/26/16 08:22 2.5 MG Atorvastatin Calcium (Lipitor Tab) 40 mg QAM PO 06/26/16 09:00 07/26/16 08:59 06/26/16 08:22 40 MG Clopidogrel Bisulfate (plAVix TAB) 75 mg DAILY PO 06/26/16 09:00 07/26/16 08:59 06/26/16 08:22 75 MG Insulin Glargine (Lantus Solostar Pen) 24 unit HS SC 06/26/16 21:00 07/26/16 20:59 Meclizine HCl (Antivert Tab) 25 mg TID PRN PO 06/25/16 21:15 07/25/16 21:14 Metoprolol Tartrate (Lopressor Tab) 50 mg BID PO 06/26/16 09:00 07/26/16 08:59 06/26/16 08:23 50 MG Venlafaxine HCl (effeXOR TAB) 37.5 mg QAM PO 06/26/16 09:00 07/26/16 08:59 06/26/16 08:23 37.5 MG Paroxetine HCl (pAXil TAB) 20 mg QAM PO 06/26/16 09:00 07/26/16 08:59 06/26/16 08:23 20 MG Albumin Human 25 gm 25 gm Q6H IV 06/26/16 02:00 06/27/16 01:59 06/26/16 07:35 25 GM Bumetanide/Syringe (Bumex IV/ Syringe) 8 ml @ 4 mls/min DAILY@ IV 06/26/16 09:00 07/26/16 08:59 06/26/16 08:21 4 MLS/MIN Potassium Chloride (Klor-Con Tab) 40 meq BID PO 06/26/16 09:00 07/26/16 08:59 06/26/16 08:21 40 MEQ Nitroglycerin (Nitroglycerin 2% Oint) 1 inch Q6H EXT 06/26/16 02:00 07/26/16 01:59 06/26/16 07:39 1 INCH Glucose (Glucose 40% Gel) 15-30 GRAMS 15 GRAMS... UD PRN PO 06/26/16 02:15 07/26/16 02:14 Glucose (Glucose Chew Tab) 4-8 Tablets 4 Tabl... UD PRN PO 06/26/16 02:15 07/26/16 02:14 Dextrose (Dextrose 50% 50ML Syringe) 25-50ML OF 50% DW IV FOR... UD PRN IV 06/26/16 02:15 07/26/16 02:14 Glucagon (Glucagon Inj) 1 mg UD PRN SQ 06/26/16 02:15 07/26/16 02:14 Insulin Aspart (novoLOG ASPART) SLIDING SCALE G... ACHS SC 06/26/16 11:00 07/26/16 10:59 06/26/16 13:03 6 UNITS Hydralazine HCl (HydrALAZINE INJ) 20 mg Q6 PRN IV. 06/26/16 08:45 07/26/16 08:44 06/26/16 11:21 20 MG Objective Vital Signs Date Time Temp Pulse Resp B/P Pulse Ox O2 Delivery O2 Flow Rate FiO2 06/26/16 12:06 Room Air 06/26/16 12:00 160/72 06/26/16 11:34 36.5 64 18 187/77 97 Room Air 06/26/16 08:30 68 18 182/73 98 Room Air 06/26/16 08:00 Room Air 06/26/16 07:25 36.4 65 20 188/78 97 Room Air 06/26/16 04:00 36.7 60 19 177/68 98 Room Air 06/26/16 04:00 Room Air 06/26/16 00:30 36.5 70 19 191/75 100 Room Air 06/25/16 22:36 72 20 180/77 100 Room Air 06/25/16 21:28 71 16 171/71 95 Room Air 06/25/16 20:12 74 19 186/70 97 Room Air 06/25/16 17:58 70 20 179/125 96 Room Air 06/25/16 17:11 69 20 183/61 93 Room Air 06/25/16 16:48 70 06/25/16 16:41 98 Room Air 06/25/16 16:41 98 Room Air 06/25/16 16:41 37.1 76 20 183/61 98 Room Air Physical Exam General Appearance: WD/WN, no apparent distress Eyes: sclerae normal ENT: hearing grossly normal Neck: supple, no JVD, trachea midline Respiratory/Chest: lungs clear, normal breath sounds, no respiratory distress, no accessory muscle use Cardiovascular: regular rate, rhythm, no gallop, no murmur Abdomen: normal bowel sounds, non tender, soft Extremities: no calf tenderness, + swelling (bilateral lower extremity 1+ pitting edema with non-pitting edema appreciated) Neurologic/Psychiatric: alert, oriented x 3 Skin: normal color, warm/dry Laboratory Results Last 24 Hours Test 06/25/16 18:43 06/25/16 21:20 06/26/16 07:31 06/26/16 08:59 White Blood Count 11.00 K/uL 8.68 K/uL Red Blood Count 3.55 M/uL 3.37 M/uL Hemoglobin 10.8 g/dL 10.3 g/dL Hematocrit 32.3 % 30.6 % Mean Corpuscular Volume 91.0 fL 90.8 fL Mean Corpuscular Hemoglobin 30.4 pg 30.6 pg Mean Corpuscular Hemoglobin Concent 33.4 g/dl 33.7 g/dl Platelet Count 378 K/uL 335 K/uL Mean Platelet Volume 9.6 fL 9.2 fL Neutrophils (%) (Auto) 63.7 % 68.4 % Lymphocytes (%) (Auto) 22.8 % 18.5 % Monocytes (%) (Auto) 9.6 % 8.3 % Eosinophils (%) (Auto) 3.0 % 3.7 % Basophils (%) (Auto) 0.6 % 0.9 % Neutrophils # (Auto) 7.00 K/uL 5.93 K/uL Lymphocytes # (Auto) 2.51 K/uL 1.61 K/uL Monocytes # (Auto) 1.06 K/uL 0.72 K/uL Eosinophils # (Auto) 0.33 K/uL 0.32 K/uL Basophils # (Auto) 0.07 K/uL 0.08 K/uL RDW Standard Deviation 47.2 fL 47.3 fL RDW Coefficient of Variation 14.1 % 14.3 % Immature Granulocyte % (Auto) 0.3 % 0.2 % Immature Granulocyte # (Auto) 0.03 K/uL 0.02 K/uL Prothrombin Time 9.9 SECONDS Prothromb Time International Ratio 0.9 Activated Partial Thromboplast Time 25.0 SECONDS Partial Thromboplastin Ratio 1.0 Sodium Level 142 mmol/L 142 mmol/L Potassium Level 3.5 mmol/L 4.0 mmol/L Chloride Level 106 mmol/L 107 mmol/L Carbon Dioxide Level 28 mmol/L 27 mmol/L Anion Gap 8.0 mmol/L 8.0 mmol/L Blood Urea Nitrogen 26 mg/dl 23 mg/dl Creatinine 1.30 mg/dl 1.20 mg/dl Est Creatinine Clear Calc Drug Dose 34.3 ml/min 36.3 ml/min Estimated GFR () 44.9 49.4 Estimated GFR (Non- 38.7 42.7 BUN/Creatinine Ratio 20.2 19.5 Random Glucose 133 mg/dl 254 mg/dl Calcium Level 8.2 mg/dl 8.3 mg/dl Magnesium Level 2.4 mg/dl 2.4 mg/dl Total Bilirubin 0.2 mg/dl Aspartate Amino Transf (AST/SGOT) 21 U/L Alanine Aminotransferase (ALT/SGPT) 22 U/L Alkaline Phosphatase 116 U/L Troponin I 0.023 ng/ml Total Protein 6.4 gm/dl Albumin 2.9 gm/dl Globulin 3.5 gm/dl Albumin/Globulin Ratio 0.8 Thyroid Stimulating Hormone (TSH) 1.610 uIu/ml Urine Color YELLOW Urine Appearance CLEAR Urine pH 5.5 Urine Specific [place] 1.013 Urine Protein 3+ Urine Glucose (UA) TRACE Urine Ketones NEG Urine Occult Blood NEG Urine Nitrite NEG Urine Bilirubin NEG Urine Urobilinogen NEG Urine Leukocyte Esterase TRACE Urine WBC (Auto) 5-10 /hpf Urine RBC (Auto) 0-4 /hpf Urine Hyaline Casts (Auto) 1-5 /lpf Urine Epithelial Cells (Auto) 20-30 /lpf Urine Bacteria (Auto) NEG Bedside Glucose 157 mg/dl Test 06/26/16 11:37 Bedside Glucose 220 mg/dl Assessment and Plan Ms. Jay is a 81 y/o female with PMHx HTN, Diabetes, GERD, CVA, and Diastolic CHF who presents with worsening bilateral lower extremity edema and SOB. Bilateral Lower Extremity Edema and SOB - CHF vs Lymphedema: - Echo (Nov 2015) - EF > 70%; class I diastolic dysfunction - Repeat echo - Bumex 2 mg IV BID with albumin 25 g IV for total of 4 doses - negative balance of approximately 1700 Hypertension: - Amlodipine 2.5 mg BID and metoprolol tartrate 50 mg BID - Nitroglycerin paste Q6H - Hydralazine 20 mg IV PRN Diabetes Mellitus: - Lantus 24 units SC HS and SSI H/O CVA - Plavix 75 mg daily DVT Prophylaxis: SCDs Disposition: PT/OT evaluations Continued [facility] stay due to: multiple IV medications needed
--- NOTE | 2016-06-26 14:48 | DIAGNOSTIC IMAGING REPORT ---
LEFT SHOULDER MIN 2 VIEWS ROUTINE CLINICAL HISTORY: Shoulder Pain pain COMPARISON: None. DISCUSSION: Severe degenerative change at the left glenohumeral joint. Subchondral cystic formation of the humeral head as well as glenoid. Moderate degenerative change acromioclavicular joint with what is most likely grade 1 chronic separation. There is no evidence for soft tissue swelling. IMPRESSION: 1. Severe degenerative change left shoulder.. 2. Grade 1 separation left acromioclavicular joint. Electronically signed by: Aristides Bower M.D. 06/26/2016 2:46 PM Dictated Date/Time: 06/26/2016 2:46 PM
[2016-06-26] MEDS: LIDODERM (LIDOCAINE) PATCH 5% TD SCH (17:18)
[2016-06-26] MEDS: INSULIN GLARGINE SOLOSTAR 100 UNITS/ML 3 ML PEN SC SCH (20:52)
[2016-06-27] VITALS (13 sets, daily range): BP systolic 161–186; BP diastolic 50–72; PULSE 69–93; TEMP 36.7–37.2; O2SAT 93–97
[2016-06-27] MEDS: NITROGLYCERIN OINT 2% 1GM PACKET EXT SCH ×4 (01:49→20:35)
[2016-06-27] MEDS ORDERED: NURSING VERBAL MED ORDER ONE (04:30)
[2016-06-27] MEDS ORDERED: METOPROLOL TARTRATE 1 MG/ML VIAL ONE (04:30)
[2016-06-27] MEDS: HydrALAZINE HCL 20 MG/ML VIAL IV. PRN ×2 (06:12→22:27)
[2016-06-27 06:17] LABS: BASO % 0.4 %; BASO ABS # 0.05 K/uL (0-0.2); COMPLETE YES; EOS % 2.6 %; HEMATOCRIT 33.5 % (37-47); IG% 0.2 %; LYMPH % 17.1 %; MEAN CELL VOLUME 92.3 fL (80-100); MEAN CORPUSCULAR HEMOGLOBIN 30.6 pg (25-34); MEAN CORPUSCULAR HGB CONC 33.1 g/dl (32-36); MEAN PLATELET VOLUME 9.9 fL (7.4-10.4); MONO % 6.8 %; NEUT % 72.9 %; PLATELET COUNT 372 K/uL (130-400); RED BLOOD COUNT 3.63 M/uL (4.2-5.4); WHITE BLOOD COUNT 12.86 K/uL (4.8-10.8)
[2016-06-27 06:25] LABS: ESTIMATED AVERAGE GLUCOSE 151 mg/dl; HA1C FLAG Normal (Normal)
[2016-06-27 06:56] LABS: BUN/CREATININE RATIO 22.9 (10-20); CALCIUM 8.8 mg/dl (8.5-10.1); CREATININE 1.3 mg/dl (0.60-1.20); MAGNESIUM 2.7 mg/dl (1.8-2.4); POTASSIUM 3.8 mmol/L (3.5-5.1)
--- NOTE | 2016-06-27 07:04 | Clinical Documentation Query ---
CLINICAL DOCUMENTATION QUERY 81 year old female who presents to the Emergency Room with complaints of persistent bilateral leg edema and shortness of breath DO AGREE BELOW HOWEVER DID NOT SEE/PLACE F/U NOTE ON THIS PATIENT Query #1/2 In your clinical opinion is this patient being managed for: ( x ) Possible Acute diastolic (Preserve EF) heart failure in setting of hypertensive heart disease/CKD stage III. ( ) Other explanation of clinical findings (Please Explain) ( ) Unable to determine (Please Define) ( ) Need to Discuss ( ) Not Agree The medical record reflects the following clinical findings, treatment, and risk factors. Clinical Indicators: CHF vs. Lymphedema, HTN (180's/60's), BUN 26, Creatinine 1.30, GFR 38.7, Treatment: IV Bumex with albumin, IV Lopressor, Norvasc, Nitro paste Risk Factors: Age, prolonged HTN, Query #2/2 In your clinical opinion is this patient being managed for: ( x ) CKD stage 3 in setting of hypertension ( ) Other explanation of clinical findings (Please Explain) ( ) Unable to determine (Please Define) ( ) Need to Discuss ( ) Not Agree The medical record reflects the following clinical findings, treatment, and risk factors. Clinical Indicators: BUN 26, Creatinine 1.30, GFR 38.7, BP 180's/60's Treatment: IV Bumex with albumin, IV Lopressor, Norvasc, Nitro paste Risk Factors: HTN, home diuretic therapy Please clarify and document your clinical opinion in the progress notes and discharge summary. Terms such as "probable", "suspected", "likely", "questionable", "possible", or "still to be ruled out" are acceptable. IF IN AGREEMENT, YOU MUST DOCUMENT ABOVE DIAGNOSTIC STATEMENT IN DAILY PROGRESS NOTES AND DISCHARGE SUMMARY. This document is not part of the patient's record. Thank You, Hossein Petty, RN [phone]
[2016-06-27] MEDS: VENLAFAXINE HCL 37.5 MG TAB PO SCH (08:09)
[2016-06-27] MEDS: POTASSIUM CHLORIDE 20 MEQ TABCR PO SCH ×2 (08:09→20:36)
[2016-06-27] MEDS: ATORVASTATIN 40 MG TAB PO SCH (08:10)
[2016-06-27] MEDS: AMLODIPINE BESYLATE 5 MG TAB PO SCH (08:10)
[2016-06-27] MEDS: CLOPIDOGREL BISULFATE 75 MG TAB PO SCH (08:11)
[2016-06-27] MEDS: PAROXETINE 20 MG TAB PO SCH (08:11)
[2016-06-27] MEDS: METOPROLOL TARTRATE 50 MG TAB PO SCH (08:12)
[2016-06-27] MEDS: LIDODERM (LIDOCAINE) PATCH 5% TD SCH (08:14)
[2016-06-27] MEDS: BUMETANIDE IV 2 MG in SYRINGE 0 ML IV SCH (08:14)
[2016-06-27] MEDS: INSULIN ASPART 100 UNITS/ML 3 ML PEN SC SCH ×4 (09:22→21:00)
[2016-06-27] MEDS ORDERED: VENL37.593 PO (12:27)
[2016-06-27 14:10] LABS: BUN/CREATININE RATIO 19.1 (10-20); CALCIUM 8.5 mg/dl (8.5-10.1); CREATININE 1.6 mg/dl (0.60-1.20); POTASSIUM 4.5 mmol/L (3.5-5.1)
--- NOTE | 2016-06-27 15:32 | Progress Note ---
Subjective Date of Service: Jun 27, 2016. Subjective Pt evaluation today including: conversation w/ patient, physical exam, chart review, lab review, review of studies, review of inpatient medication list Voiding: no voiding problems Was complaining above no extremity swelling, but did report is getting better, was requested 5 pillows to support, When I seeing her she was eating lunch, no complaining, again did report to me that lower extremity swelling is better Problem List Medical Problems: (1) Anemia Status: Acute (2) Fluid overload Status: Acute (3) Gastrointestinal bleeding, upper Status: Acute (4) Hypertensive urgency Status: Acute (5) Pedal edema Status: Acute (6) SOB (shortness of breath) Status: Acute Review of Systems Constitutional: No chills, No fatigue, No fever, No problem reported, No see HPI, No sweats, No weakness, No weight loss Eyes: No diplopia, No discharge, No eye pain, No problem reported, No redness, No see HPI, No worsening of vision ENT: No dental problems, No hearing loss, No nasal symptoms, No problem reported, No see HPI, No sore throat, No tinnitus, No trouble swallowing, No unusual epistaxis Respiratory: No cough, No dyspnea at rest, No dyspnea on exertion, No hemoptysis, No problem reported, No see HPI, No shortness of breath, No sputum, No wheezing Cardiac: No PND, No chest pain, No claudication, No edema, No orthopnea, No palpitations, No problem reported, No see HPI Abdomen: No GI bleeding, No constipation, No diarrhea, No nausea, No pain, No problem reported, No see HPI, No vomiting Musculoskeletal: No calf pain, No joint pain, No muscle pain, No problem reported, No see HPI, No swelling Female : No abnormal vaginal bleeding, No dysuria, No hematuria, No incontinence, No problem reported, No see HPI, No urinary frequency, No vaginal discharge Neurologic: No balance problems, No memory loss, No numbness/tingling, No paralysis, No problem reported, No see HPI, No vertigo, No weakness Psychiatric: No anhedonism, No anxiety, No depression symptoms, No insomnia, No problem reported, No see HPI, No substance abuse Heme: No abnormal bleeding/bruising, No clotting problems, No night sweats, No problem reported, No see HPI, No swollen lymph nodes Endo: No excessive thirst, No excessive urination, No fatigue, No problem reported, No see HPI Objective Vital Signs Date Time Temp Pulse Resp B/P Pulse Ox O2 Delivery O2 Flow Rate FiO2 06/27/16 15:16 37.0 72 18 161/56 97 Room Air 06/27/16 12:00 96 Room Air 06/27/16 11:20 36.7 77 16 183/72 96 Room Air 06/27/16 08:11 37.1 93 16 177/66 93 Room Air 06/27/16 08:00 95 Room Air 06/27/16 06:00 76 179/64 06/27/16 04:43 78 176/67 06/27/16 04:00 36.7 80 18 186/50 95 Room Air 06/27/16 04:00 176/67 06/27/16 04:00 Room Air 06/27/16 01:44 181/64 06/27/16 00:00 36.7 69 16 182/68 97 Room Air 06/27/16 00:00 Room Air 06/26/16 20:00 Room Air 06/26/16 19:37 36.7 71 18 179/65 97 Room Air 06/26/16 18:00 72 154/67 06/26/16 16:04 164/70 06/26/16 16:00 Room Air Physical Exam General Appearance: WD/WN, no apparent distress, + obese Eyes: normal inspection, PERRL, EOMI, sclerae normal ENT: normal ENT inspection, hearing grossly normal, pharynx normal Neck: supple, no adenopathy, thyroid normal, no JVD, no carotid bruits, trachea midline Respiratory/Chest: chest non-tender, normal breath sounds, no respiratory distress, no accessory muscle use, + decreased breath sounds Cardiovascular: regular rate, rhythm, no edema, no gallop, no JVD, no murmur Abdomen: normal bowel sounds, non tender, soft, no organomegaly, no pulsatile mass Extremities: normal range of motion, non-tender, normal inspection, no pedal edema, no calf tenderness, normal capillary refill, pelvis stable, + swelling (1 -2+ edema, is better than yesterday) Neurologic/Psychiatric: handcrew foreman II-XII nml as tested, no motor/sensory deficits, alert, normal mood/affect, oriented x 3 Skin: normal color, warm/dry, no rash Lymphatic: no adenopathy Laboratory Results Last 24 Hours Test 06/26/16 16:26 06/26/16 20:12 06/27/16 05:47 06/27/16 07:33 Bedside Glucose 110 mg/dl 186 mg/dl 134 mg/dl White Blood Count 12.86 K/uL Red Blood Count 3.63 M/uL Hemoglobin 11.1 g/dL Hematocrit 33.5 % Mean Corpuscular Volume 92.3 fL Mean Corpuscular Hemoglobin 30.6 pg Mean Corpuscular Hemoglobin Concent 33.1 g/dl Platelet Count 372 K/uL Mean Platelet Volume 9.9 fL Neutrophils (%) (Auto) 72.9 % Lymphocytes (%) (Auto) 17.1 % Monocytes (%) (Auto) 6.8 % Eosinophils (%) (Auto) 2.6 % Basophils (%) (Auto) 0.4 % Neutrophils # (Auto) 9.38 K/uL Lymphocytes # (Auto) 2.20 K/uL Monocytes # (Auto) 0.88 K/uL Eosinophils # (Auto) 0.33 K/uL Basophils # (Auto) 0.05 K/uL RDW Standard Deviation 48.8 fL RDW Coefficient of Variation 14.4 % Immature Granulocyte % (Auto) 0.2 % Immature Granulocyte # (Auto) 0.02 K/uL Sodium Level 141 mmol/L Potassium Level 3.8 mmol/L Chloride Level 106 mmol/L Carbon Dioxide Level 29 mmol/L Anion Gap 6.0 mmol/L Blood Urea Nitrogen 30 mg/dl Creatinine 1.30 mg/dl Est Creatinine Clear Calc Drug Dose 33.1 ml/min Estimated GFR () 44.9 Estimated GFR (Non- 38.7 BUN/Creatinine Ratio 22.9 Random Glucose 119 mg/dl Estimated Average Glucose 151 mg/dl Hemoglobin A1c 6.9 % Calcium Level 8.8 mg/dl Magnesium Level 2.7 mg/dl Test 06/27/16 11:35 06/27/16 13:30 Bedside Glucose 208 mg/dl Sodium Level 135 mmol/L Potassium Level 4.5 mmol/L Chloride Level 102 mmol/L Carbon Dioxide Level 25 mmol/L Anion Gap 8.0 mmol/L Blood Urea Nitrogen 31 mg/dl Creatinine 1.60 mg/dl Est Creatinine Clear Calc Drug Dose 26.9 ml/min Estimated GFR () 34.9 Estimated GFR (Non- 30.1 BUN/Creatinine Ratio 19.1 Random Glucose 265 mg/dl Calcium Level 8.5 mg/dl Pro-B-Type Natriuretic Peptide 2450 pg/ml Assessment and Plan 81 y/o female with Bilateral Lower Extremity Edema and SOB CHF vs Lymphedema, vs venous stasis vs from the side effect on medication such as amlodipine - Echo (Nov 2015) - EF > 70%; class I diastolic dysfunction - Repeat echo : No reported yet, - Bumex 2 mg IV BID with albumin 25 g IV for total of 4 doses, we'll discontinue because of worsening BUN/creatinine, today's creatinine is 1.6 from 1.3, - We'll follow-up echocardiogram results, patient's bilateral lung has no obvious crackle for now, bilateral lower extremity swelling is better, possible some other factors contribute to benefit lower extremity edema, TSH was normal, I will discontinue amlodipine, continue elevation, place compression stocking periprosthetic Accelerated hypertension Hypertension: - We'll discontinue Amlodipine 2.5 mg BID and an increase metoprolol tartrate from 50 to 75 mg BID - Nitroglycerin paste Q6H - Hydralazine 20 mg IV PRN Diabetes Mellitus: Check HbA1c was 6.9, we'll continue current care - Lantus 24 units SC HS and SSI H/O CVA - Plavix 75 mg daily PT OT and nursing home social worker consult, discussed with patient and about risk and benefit of using IV Lasix which may cause worsening renal function, seems patient and is not happy about the progress and improvement of lower extremity swelling, therefore I check echocardiogram today and request cardiology to see patient DVT Prophylaxis: SCDs Discussed with patient and family Continued [facility] stay due to: multiple IV medications needed Discharge planning: home
--- NOTE | 2016-06-27 16:00 | CARDIOLOGY CONSULTATION ---
DATE OF CONSULTATION: 06/27/2016 DATE OF CONSULTATION: 06/27/2016. REFERRING PHYSICIAN: Lino Pathak. CHIEF COMPLAINT: Swelling and shortness of breath. HISTORY OF PRESENT ILLNESS: Mrs. Traci Jay is an 81-year-old woman without a known history of cardiac disease who over the past several days has noticed increasing lower extremity edema. She did complain of some shortness of breath as well; however, this is very unique in that it seems to be a sensation of needing to take a deep breath intermittently and not chronic dyspnea. She does not report any orthopnea. She uses CPAP at nighttime has been compliant with his therapy. Generally speaking, she is able to lay flat in bed at night and sleep. With respect to her lower extremity edema she has trouble with this for approximately 1 years' time. She uses compression stockings religiously but more recently has had difficulty controlling the edema even with compression stockings. She has less edema in the morning, but this quickly develops throughout the course of the day and is much worse in the evening hours. She claims to be compliant with her medications and a low sodium diet. She is somewhat limited with respect to activity due to arthritis and prior stroke. She is able to get around her residence, but performs little physical activity. She has some stairs at home but has installed a moveable chair to avoid ascending the stairs from her garage to the house. She had not had any symptoms of chest discomfort recently. She denies any symptoms of palpitations, tachycardia, lightheadedness or syncope. PAST MEDICAL HISTORY: Significant for: 1. Rheumatoid arthritis. 2. Cerebrovascular disease with stroke x2 resulting in residual gait instability. 3. Diabetes mellitus. 4. Hypercholesterolemia. 5. Hypertension. 6. Memory loss. 7. Obstructive sleep apnea, currently on CPAP therapy x10 years. 8. Urinary incontinence. PAST SURGICAL HISTORY: Includes bladder surgery, cholecystectomy, cervical D\T\C, tonsillectomy, thyroid surgery, hysterectomy, total hip replacement. FAMILY HISTORY: Noncontributory given her advanced age, no premature coronary disease. SOCIAL HISTORY: The patient currently lives with her . She is a lifelong nonsmoker. She denies significant alcohol abuse. 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 OUTPATIENT MEDICATIONS: Included bumetanide 1 mg daily, insulin, Lipitor 40 mg daily, paroxetine 10 mg daily, Plavix 75 mg daily, ranitidine 300 mg daily, tamsulosin 0.4 mg at bedtime, Toprol XL 50 mg daily, Ventolin nebulized inhaler and vitamin D supplementation. MEDICAL ALLERGIES: INCLUDE ACETAMINOPHEN, AMITRIPTYLINE, CIPROFLOXACIN, GABAPENTIN, GUAIFENESIN, LATEX, MELOXICAM, METFORMIN. REVIEW OF SYSTEMS: A complete system review of systems was performed and the pertinent positives noted in the history of present illness. The remainder of review of systems was negative. She does not report any recent fevers or chills. She has not had any constitutional symptoms of upper respiratory infection. She denies frequent coughing. She has been eating well. She denies nausea or vomiting. She denies any notable change in her bowel or bladder habits. PHYSICAL EXAMINATION: GENERAL: She was alert and oriented, mood and affect appeared normal. She answered all questions appropriately. VITAL SIGNS: Include blood pressure 183/72 with a pulse of 77. HEAD, EYES, EARS, NOSE, AND THROAT: Sclerae are anicteric. Pupils equal, reactive to light and accommodation. Extraocular movements were intact. NECK: Palpation of submandibular region did not reveal any significant lymphadenopathy. The carotids are palpable bilaterally. There are no bruits on auscultation. She had some very mild jugular venous distention, perhaps 2 cm above the sternal notch and there was no thyromegaly. LUNGS: Auscultation both lung irwin reveal them to be clear. She had good air movement with no rales, wheezes or rhonchi. She had normal respiratory effort without use of accessory muscles. CARDIAC EXAMINATION: Revealed her to be in a regular rhythm. She had normal S1, normal S2. She had holosystolic murmur that was of moderate intensity in her best at the apex. There was no displacement of PMI on palpation. ABDOMEN: Evaluation of her abdomen revealed it to be soft and nontender. EXTREMITIES: Evaluation both wrists revealed radial pulses that were equal in intensity. There is no evidence of cyanosis or clubbing. She did have some deformities of her phalangeal joints due to her arthritis. Evaluation of lower extremities revealed moderate peripheral edema most prominent in her feet, but also up to the upper calf on both legs, the left was perhaps worse than the right. SKIN: I did not appreciate any rashes on examination today. LABORATORY STUDIES: Included a white cell count of 12.8, hemoglobin of 11.1, a platelet count of 372. Sodium is 135, potassium is 4.5, BUN was 31 and creatinine was 1.6. Terminal ProBNP was 2,450. Cardiac troponins drawn at the time of admission were less than detectable limit. TSH was in the normal range. Liver function tests were also in the normal range. The patient did undergo imaging studies including venous duplex of her legs which did not reveal any evidence of DVT. She had a single view chest x-ray which did not reveal any evidence of pulmonary vascular congestion or other abnormality. Review of her outpatient record reveals echocardiogram that was performed in November 2015. At that time the patient's left ventricular function was normal with an ejection fraction over 70% with stage I diastolic dysfunction, which is normal for her age. Right ventricle was also felt to be normal in size and function at that point. The patient also underwent dobutamine stress echocardiography 2 years ago for symptoms of chest discomfort that was also felt to be normal without evidence of inducible ischemia. ASSESSMENT AND PLAN: Peripheral edema: The patient certainly has an element of lower extremity edema. This is an acute exacerbation of a more chronic problem. The etiology is most likely venous insufficiency. However, there may be an element of right ventricular failure associated with her known pulmonary disease, specifically obstructive sleep apnea. In the past, she has had normal right ventricular function, which would speak again this problem; however, terminal ProBNP is elevated and this may represent more over right-sided problem than left ventricular failure, especially in the setting of essentially normal pulmonary vasculature and a normal pulmonary exam. The patient's symptoms of shortness of breath are quite atypical and not consistent with pulmonary vascular congestion. At this point, an echocardiogram has been in ordered. I think additional recommendations can be based on the results of that study. If she continues to have preserved left ventricular systolic function and normal right ventricular function I would ascribe most of this to venous insufficiency rather than heart failure. In any event most likely treatment is continued diuresis and use of compression stockings as well as limiting sodium and maintaining elevation of the legs. FINAL RECOMMENDATIONS: 1. Await result of cardiac echocardiogram. 2. Continue current diuresis, monitoring electrolytes and renal function closely. 3. Elevation of the lower extremities with compression devices as previously prescribed.
--- NOTE | 2016-06-27 16:35 | ECHOCARDIOGRAM REPORT ---
*NOTICE TO RECEIVING CONSTITUTION PARTY AGENCY This information is strictly Confidential and protected under [place] law. [place] law prohibits you from making any further disclosure of this information unless further disclosure is expressly permitted by the written consent of the person to whom it pertains or is authorized by law. A general authorization for the release of medical or other information is not sufficient for this purpose. Hospital accepts no responsibility if the information is made available to any other person, INCLUDING THE PATIENT. Interpretation Summary * Name: GHASSAN MARR Study Date: 06/27/2016 02:35 PM BP: 179/64 mmHg * Patient Location: [facility]\S\N277\S\2 HR: 75 * : 1935 (M/d/yyyy) Gender: Female Height: 62 in * Age: 81 yrs Ethnicity: [place] Weight: 173 lb * Ordering Physician: Carlotta Petty * Referring Physician: Afia Villa * Performed By: Polly Carty RCS * * Reason For Study: CHF * BSA: 1.8 m2 * -- Conclusions -- * Left ventricular systolic function is normal. * Grade I diastolic dysfunction, (abnormal relaxation pattern). * The left atrium is borderline dilated. * There is mild mitral annular calcification. * Right ventricular systolic pressure is normal. Procedure Details * A complete two-dimensional transthoracic echocardiogram was performed (2D, M-mode, Doppler and color flow Doppler). Left Ventricle * The left ventricle is normal in size. * There is normal left ventricular wall thickness. * Ejection Fraction = 65-70%. * Left ventricular systolic function is normal. * Grade I diastolic dysfunction, (abnormal relaxation pattern). Right Ventricle * The right ventricle is normal in size and function. Atria * The left atrium is borderline dilated. * Right atrial size is normal. Mitral Valve * There is mild mitral annular calcification. * Significant mitral regurgitation is absent. Tricuspid Valve * The tricuspid valve is not well visualized. * There is trace tricuspid regurgitation. * Right ventricular systolic pressure is normal. Aortic Valve * Aortic valve sclerosis mild, without significant aortic valvular stenosis. * No hemodynamically significant valvular aortic stenosis. * There is no significant aortic regurgitation. Great Vessels * The aortic root is normal size. Pericardium/Pleural * There is no pericardial effusion. Great Vessels * There is no evidence of pulmonary hypertension. The PA systolic pressure is less than 36 mmHg. MMode 2D Measurements and Calculations IVSd 1.0 cm IVSs 1.4 cm LVIDd 3.9 cm LVIDs 2.4 cm LVPWd 0.99 cm LVPWs 1.5 cm IVS/LVPW 1.0 FS 37.4 % EDV(Teich) 64.8 ml ESV(Teich) 20.7 ml EF(Teich) 68.1 % EDV(cubed) 58.1 ml ESV(cubed) 14.2 ml EF(cubed) 75.5 % % IVS thick 36.0 % % LVPW thick 49.3 % LV mass(C)d 122.1 grams LV mass(C)dI 67.9 grams/m\S\2 LV mass(C)s 112.4 grams LV mass(C)sI 62.5 grams/m\S\2 CO(Teich) 3.4 l/min CI(Teich) 1.9 l/min/m\S\2 SV(Teich) 44.2 ml SI(Teich) 24.6 ml/m\S\2 CO(cubed) 3.4 l/min CI(cubed) 1.9 l/min/m\S\2 SV(cubed) 43.9 ml SI(cubed) 24.4 ml/m\S\2 Ao root diam 3.6 cm Ao root area 10.3 cm\S\2 ACS 1.6 cm LA dimension 4.0 cm LA/Ao 1.1 LVAd ap4 31.0 cm\S\2 LVLd ap4 8.1 cm EDV(MOD-sp4) 98.0 ml LVAs ap4 15.6 cm\S\2 LVLs ap4 6.6 cm ESV(MOD-sp4) 30.0 ml EF(MOD-sp4) 69.4 % LVAd ap2 26.6 cm\S\2 LVLd ap2 7.8 cm EDV(MOD-sp2) 76.0 ml LVAs ap2 11.9 cm\S\2 LVLs ap2 5.5 cm ESV(MOD-sp2) 23.0 ml EF(MOD-sp2) 69.7 % CO(MOD-sp4) 5.3 l/min CI(MOD-sp4) 3.0 l/min/m\S\2 SV(MOD-sp4) 68.0 ml SI(MOD-sp4) 37.8 ml/m\S\2 CO(MOD-sp2) 4.1 l/min CI(MOD-sp2) 2.3 l/min/m\S\2 SV(MOD-sp2) 53.0 ml SI(MOD-sp2) 29.5 ml/m\S\2 Doppler Measurements and Calculations MV E max vladislav 115.5 cm/sec MV A max vladislav 124.9 cm/sec MV E/A 0.92 MV P1/2t max vladislav 152.2 cm/sec MV P1/2t 80.4 msec MVA(P1/2t) 2.7 cm\S\2 MV dec slope 554.4 cm/sec\S\2 MV dec time 0.24 sec Ao V2 max 185.8 cm/sec Ao max PG 13.8 mmHg Ao max PG (full) 10.3 mmHg LV V1 max PG 3.5 mmHg LV V1 max 93.3 cm/sec PA V2 max 120.8 cm/sec PA max PG 5.8 mmHg TR max vladislav 214.8 cm/sec
[2016-06-27] MEDS: METOPROLOL TARTRATE 25 MG TAB PO SCH (20:36)
[2016-06-27] MEDS: INSULIN GLARGINE SOLOSTAR 100 UNITS/ML 3 ML PEN SC SCH (21:00)
[2016-06-27] MEDS ORDERED: FUROSEMIDE 20 MG TAB PO SCH (21:00)
[2016-06-28] VITALS (11 sets, daily range): BP systolic 174–185; BP diastolic 66–72; PULSE 70–77; TEMP 36.6–37.1; O2SAT 93–97
[2016-06-28] MEDS ORDERED: AMLODIPINE BESYLATE 5 MG TAB PO ONE (01:15)
[2016-06-28] MEDS: NITROGLYCERIN OINT 2% 1GM PACKET EXT SCH ×4 (02:12→20:48)
[2016-06-28] MEDS: INSULIN ASPART 100 UNITS/ML 3 ML PEN SC SCH ×4 (06:30→20:44)
[2016-06-28] MEDS: HydrALAZINE HCL 20 MG/ML VIAL IV. PRN ×2 (06:53→16:46)
[2016-06-28 07:34] LABS: BUN/CREATININE RATIO 22.4 (10-20); CALCIUM 8.5 mg/dl (8.5-10.1); CREATININE 1.3 mg/dl (0.60-1.20); MAGNESIUM 2.8 mg/dl (1.8-2.4); POTASSIUM 3.9 mmol/L (3.5-5.1)
[2016-06-28] MEDS ORDERED: ENALAPRILAT IV 0.625 MG in DEXTROSE 5% 25ML 25 ML IV PRN (08:30)
[2016-06-28] MEDS ORDERED: AMLODIPINE BESYLATE 5 MG TAB PO SCH (09:00)
[2016-06-28] MEDS: PAROXETINE 20 MG TAB PO SCH (09:17)
[2016-06-28] MEDS: METOPROLOL TARTRATE 25 MG TAB PO SCH ×2 (09:17→20:47)
[2016-06-28] MEDS: ATORVASTATIN 40 MG TAB PO SCH (09:17)
[2016-06-28] MEDS: CLOPIDOGREL BISULFATE 75 MG TAB PO SCH (09:18)
[2016-06-28] MEDS: LIDODERM (LIDOCAINE) PATCH 5% TD SCH (09:19)
[2016-06-28] MEDS: POTASSIUM CHLORIDE 20 MEQ TABCR PO SCH ×2 (09:20→20:48)
[2016-06-28] MEDS: VENLAFAXINE HCL XR 37.5 MG CAPXR PO SCH (09:21)
--- NOTE | 2016-06-28 14:54 | Progress Note ---
Subjective Date of Service: Jun 28, 2016. Subjective Pt evaluation today including: conversation w/ patient, conversation w/ family , physical exam, chart review, lab review, review of studies, review of inpatient medication list Lower extremity swelling is getting better, blood pressure is accelerated, adjusting medication No other complaints Problem List Medical Problems: (1) Anemia Status: Acute (2) Fluid overload Status: Acute (3) Gastrointestinal bleeding, upper Status: Acute (4) Hypertensive urgency Status: Acute (5) Pedal edema Status: Acute (6) SOB (shortness of breath) Status: Acute Review of Systems Constitutional: No chills, No fatigue, No fever, No problem reported, No sweats , No weakness, No weight loss Eyes: No diplopia, No discharge, No eye pain, No redness, No worsening of vision ENT: No dental problems, No hearing loss, No nasal symptoms, No sore throat, No tinnitus, No trouble swallowing, No unusual epistaxis Respiratory: No cough, No dyspnea at rest, No dyspnea on exertion, No hemoptysis, No shortness of breath, No sputum, No wheezing Cardiac: + edema, No PND, No chest pain, No claudication, No orthopnea, No palpitations Abdomen: No constipation, No diarrhea, No nausea, No pain, No vomiting Musculoskeletal: No calf pain, No joint pain, No muscle pain, No swelling Female : No abnormal vaginal bleeding, No dysuria, No hematuria, No incontinence, No urinary frequency, No vaginal discharge Neurologic: No balance problems, No memory loss, No numbness/tingling, No paralysis, No vertigo, No weakness Psychiatric: No anhedonism, No anxiety, No depression symptoms, No insomnia, No substance abuse Heme: No abnormal bleeding/bruising, No clotting problems, No night sweats, No swollen lymph nodes Endo: No excessive thirst, No excessive urination, No fatigue Skin: No bleeding, No color change, No itch, No new/changing skin lesions, No rash Objective Vital Signs Date Time Temp Pulse Resp B/P Pulse Ox O2 Delivery O2 Flow Rate FiO2 06/28/16 12:00 96 Room Air 06/28/16 11:43 36.6 71 18 174/68 96 Room Air 06/28/16 08:00 96 Room Air 06/28/16 07:30 36.7 70 18 176/67 96 Room Air 06/28/16 05:18 36.7 70 18 182/72 95 Room Air 06/28/16 04:00 97 Room Air 06/28/16 00:10 36.8 73 18 185/66 97 Room Air 06/28/16 00:00 97 Room Air 06/27/16 22:27 182/72 06/27/16 20:00 97 Room Air 06/27/16 20:00 97 Room Air 06/27/16 19:40 37.2 72 18 183/70 93 Room Air 06/27/16 16:00 97 Room Air 06/27/16 15:16 37.0 72 18 161/56 97 Room Air Physical Exam General Appearance: WD/WN, no apparent distress, + obese Eyes: normal inspection, PERRL, EOMI, sclerae normal ENT: normal ENT inspection, hearing grossly normal, pharynx normal Neck: supple, no adenopathy, thyroid normal, no JVD, no carotid bruits, trachea midline Respiratory/Chest: chest non-tender, lungs clear, normal breath sounds, no respiratory distress, no accessory muscle use Cardiovascular: regular rate, rhythm, no gallop, no JVD, no murmur, + pertinent finding (bilateral lower extremity edema significant better,) Abdomen: normal bowel sounds, non tender, soft, no organomegaly, no pulsatile mass Extremities: normal range of motion, non-tender, normal inspection, no pedal edema, no calf tenderness, normal capillary refill, pelvis stable 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, no motor/sensory deficits, alert, normal mood/affect, oriented x 3 Skin: normal color, warm/dry, no rash Lymphatic: no adenopathy Laboratory Results Last 24 Hours Test 06/27/16 16:22 06/27/16 20:29 06/28/16 06:27 06/28/16 07:43 Bedside Glucose 129 mg/dl 216 mg/dl 118 mg/dl Sodium Level 141 mmol/L Potassium Level 3.9 mmol/L Chloride Level 108 mmol/L Carbon Dioxide Level 25 mmol/L Anion Gap 8.0 mmol/L Blood Urea Nitrogen 29 mg/dl Creatinine 1.30 mg/dl Est Creatinine Clear Calc Drug Dose 32.8 ml/min Estimated GFR () 44.9 Estimated GFR (Non- 38.7 BUN/Creatinine Ratio 22.4 Random Glucose 124 mg/dl Calcium Level 8.5 mg/dl Magnesium Level 2.8 mg/dl Test 06/28/16 11:57 Bedside Glucose 196 mg/dl Assessment and Plan 81 y/o female with Bilateral Lower Extremity Edema and SOB: No more shortness of breath, edema is better CHF vs Lymphedema, vs venous stasis vs from the side effect on medication such as amlodipine - Echo done in this admission which shows EF > 70%; class I diastolic dysfunctio - Has been treated with Bumex 2 mg IV BID with albumin 25 g IV for total of 4 doses, today's creatinine is back to 1.3, patient's bilateral lung has no obvious crackle for now, bilateral lower extremity swelling is better, possible some other factors contribute to benefit lower extremity edema, TSH was normal, I will discontinue amlodipine, continue elevation, place compression stocking periprosthetic Accelerated hypertension Hypertension: -Has discontinue Amlodipine has increase metoprolol tartrate from 50 to 75 mg BID, Add hydralazine 20 mg by mouth scheduled because of accelerated hypertension I do not want to give JADEN inhibitor because patient's kidney function is fluctuating - Nitroglycerin paste Q6H - Hydralazine 20 mg IV PRN Diabetes Mellitus: Check HbA1c was 6.9, we'll continue current care - Lantus 24 units SC HS and SSI H/O CVA - Plavix 75 mg daily PT OT and social worker psychiatric consult, OT recommend maybe continue skilled OT, PT recommended may be okay to go home Follow-up DVT Prophylaxis: SCDs Discussed with patient and family Continued [facility] stay due to: multiple IV medications needed Discharge planning: home
[2016-06-28] MEDS: HydrALAZINE 10 MG TAB PO SCH ×2 (15:02→21:50)
[2016-06-28] MEDS: INSULIN GLARGINE SOLOSTAR 100 UNITS/ML 3 ML PEN SC SCH (20:45)
[2016-06-29] VITALS (11 sets, daily range): BP systolic 140–194; BP diastolic 48–82; PULSE 60–75; TEMP 36.5–37; O2SAT 95–98
[2016-06-29] MEDS: NITROGLYCERIN OINT 2% 1GM PACKET EXT SCH ×4 (01:46→20:48)
[2016-06-29] MEDS: HydrALAZINE HCL 20 MG/ML VIAL IV. PRN ×2 (01:49→16:07)
[2016-06-29] MEDS: HydrALAZINE 10 MG TAB PO SCH ×3 (06:06→21:46)
[2016-06-29] MEDS: METOPROLOL TARTRATE 25 MG TAB PO SCH ×2 (07:52→20:48)
[2016-06-29] MEDS: POTASSIUM CHLORIDE 20 MEQ TABCR PO SCH ×2 (07:52→20:48)
[2016-06-29] MEDS: PAROXETINE 20 MG TAB PO SCH (07:52)
[2016-06-29] MEDS: ATORVASTATIN 40 MG TAB PO SCH (07:53)
[2016-06-29] MEDS: VENLAFAXINE HCL XR 37.5 MG CAPXR PO SCH (07:53)
[2016-06-29] MEDS: CLOPIDOGREL BISULFATE 75 MG TAB PO SCH (07:53)
[2016-06-29] MEDS: LIDODERM (LIDOCAINE) PATCH 5% TD SCH (07:53)
[2016-06-29] MEDS: INSULIN ASPART 100 UNITS/ML 3 ML PEN SC SCH ×4 (08:06→20:54)
[2016-06-29 11:30] LABS: BASO % 0.5 %; BASO ABS # 0.06 K/uL (0-0.2); COMPLETE YES; IG% 0.4 %; LYMPH % 14.5 %; LYMPH ABS # 1.59 K/uL (1.2-3.4); MEAN CORPUSCULAR HGB CONC 33.3 g/dl (32-36); MEAN PLATELET VOLUME 9.6 fL (7.4-10.4); MONO % 10.1 %; NEUT % 72.5 %; PLATELET COUNT 350 K/uL (130-400); RED BLOOD COUNT 3.55 M/uL (4.2-5.4); WHITE BLOOD COUNT 10.99 K/uL (4.8-10.8)
[2016-06-29 11:53] LABS: BUN/CREATININE RATIO 30.5 (10-20); CALCIUM 8.3 mg/dl (8.5-10.1); CREATININE 1.1 mg/dl (0.60-1.20); MAGNESIUM 2.6 mg/dl (1.8-2.4); POTASSIUM 4.7 mmol/L (3.5-5.1)
[2016-06-29] MEDS ORDERED: LPR25 PO (12:08)
[2016-06-29] MEDS ORDERED: LSN25 PO (12:08)
[2016-06-29] MEDS ORDERED: FURO-85 PO (12:08)
--- NOTE | 2016-06-29 12:09 | Discharge Instructions ---
Discharge Instructions Date of Service Jun 29, 2016. Admission Reason for Admission: Fluid Overload, Sob Activity Recommendations . Current Hospital Diet Patient's current hospital diet: AHA Diet (Heart Healthy), Diabetes Type 2 Diet Laboratory Results Hemoglobin A1c Test 06/27/16 05:47 Range/Units Estimated Average Glucose 151 mg/dl Hemoglobin A1c 6.9 H 4.5-5.6 % Medical Emergencies . Who to Call and When: Medical Emergencies: If at any time you feel your situation is an emergency, please call 911 immediately. . Non-Emergent Contact . . "Provider Documentation" section prepared by Lino Pathak. VTE Core Measure Inpt VTE Proph given/why not?: SCD's
[2016-06-29] MEDS ORDERED: LISINOPRIL 2.5 MG TAB PO ONE ×2 (13:00→16:00)
--- NOTE | 2016-06-29 15:28 | Progress Note ---
Subjective Date of Service: Jun 29, 2016. Subjective Pt evaluation today including: conversation w/ patient, conversation w/ family , physical exam, chart review, lab review, review of studies, conversation w/ foreign law consultant, review of inpatient medication list Voiding: no voiding problems Reportedly was having dizzy episodes this morning because of blood pressure too low, when asking what was the number of blood pressure she said was 140, she reported at home most of the time blood pressure was at 150-160, which make her more comfortable, therefore dose not like the blood pressure at 140s Problem List Medical Problems: (1) Anemia Status: Acute (2) Fluid overload Status: Acute (3) Gastrointestinal bleeding, upper Status: Acute (4) Hypertensive urgency Status: Acute (5) Pedal edema Status: Acute (6) SOB (shortness of breath) Status: Acute Review of Systems Constitutional: No chills, No fatigue, No fever, No problem reported, No sweats , No weakness, No weight loss Eyes: No diplopia, No discharge, No eye pain, No redness, No worsening of vision ENT: No dental problems, No hearing loss, No nasal symptoms, No sore throat, No tinnitus, No trouble swallowing, No unusual epistaxis Respiratory: No cough, No dyspnea at rest, No dyspnea on exertion, No hemoptysis, No shortness of breath, No sputum, No wheezing Cardiac: No PND, No chest pain, No claudication, No edema, No orthopnea, No palpitations Abdomen: No constipation, No diarrhea, No nausea, No pain, No vomiting Musculoskeletal: No calf pain, No joint pain, No muscle pain, No swelling Female : No abnormal vaginal bleeding, No dysuria, No hematuria, No incontinence, No urinary frequency, No vaginal discharge Neurologic: No balance problems, No memory loss, No numbness/tingling, No paralysis, No vertigo, No weakness Psychiatric: No anhedonism, No anxiety, No depression symptoms, No insomnia, No substance abuse Heme: No abnormal bleeding/bruising, No clotting problems, No night sweats, No swollen lymph nodes Endo: No excessive thirst, No excessive urination, No fatigue Skin: No bleeding, No color change, No itch, No new/changing skin lesions, No rash Objective Vital Signs Date Time Temp Pulse Resp B/P Pulse Ox O2 Delivery O2 Flow Rate FiO2 06/29/16 14:55 36.9 65 18 184/75 97 Room Air 06/29/16 14:00 36.6 62 18 194/48 97 Room Air 06/29/16 12:00 95 Room Air 06/29/16 11:19 36.7 60 18 179/70 95 Room Air 06/29/16 08:00 97 Room Air 06/29/16 07:16 36.8 62 20 140/51 97 Room Air 06/29/16 06:03 70 189/68 06/29/16 04:38 36.5 75 20 172/80 98 Room Air 06/29/16 04:00 Room Air 06/29/16 01:43 188/82 06/29/16 00:00 Room Air 06/28/16 23:08 36.8 71 20 176/68 97 Room Air 06/28/16 20:00 Room Air 06/28/16 19:59 37.1 77 18 176/66 94 Room Air 06/28/16 16:00 Room Air Physical Exam General Appearance: WD/WN, no apparent distress Eyes: normal inspection, PERRL, EOMI, sclerae normal ENT: normal ENT inspection, hearing grossly normal, pharynx normal Neck: supple, no adenopathy, thyroid normal, no JVD, no carotid bruits, trachea midline Respiratory/Chest: chest non-tender, lungs clear, normal breath sounds, no respiratory distress, no accessory muscle use Cardiovascular: regular rate, rhythm, no edema, no gallop, no JVD, no murmur Abdomen: normal bowel sounds, non tender, soft, no organomegaly, no pulsatile mass Extremities: normal range of motion, non-tender, normal inspection, no pedal edema, no calf tenderness, normal capillary refill, pelvis stable, + swelling ( trace edema) 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, no motor/sensory deficits, alert, normal mood/affect, oriented x 3 Skin: normal color, warm/dry, no rash Lymphatic: no adenopathy Laboratory Results Last 24 Hours Test 06/28/16 16:29 06/28/16 20:38 06/29/16 07:25 06/29/16 11:20 Bedside Glucose 136 mg/dl 206 mg/dl 107 mg/dl White Blood Count 10.99 K/uL Red Blood Count 3.55 M/uL Hemoglobin 11.0 g/dL Hematocrit 33.0 % Mean Corpuscular Volume 93.0 fL Mean Corpuscular Hemoglobin 31.0 pg Mean Corpuscular Hemoglobin Concent 33.3 g/dl Platelet Count 350 K/uL Mean Platelet Volume 9.6 fL Neutrophils (%) (Auto) 72.5 % Lymphocytes (%) (Auto) 14.5 % Monocytes (%) (Auto) 10.1 % Eosinophils (%) (Auto) 2.0 % Basophils (%) (Auto) 0.5 % Neutrophils # (Auto) 7.97 K/uL Lymphocytes # (Auto) 1.59 K/uL Monocytes # (Auto) 1.11 K/uL Eosinophils # (Auto) 0.22 K/uL Basophils # (Auto) 0.06 K/uL RDW Standard Deviation 49.9 fL RDW Coefficient of Variation 14.5 % Immature Granulocyte % (Auto) 0.4 % Immature Granulocyte # (Auto) 0.04 K/uL Sodium Level 139 mmol/L Potassium Level 4.7 mmol/L Chloride Level 105 mmol/L Carbon Dioxide Level 23 mmol/L Anion Gap 11.0 mmol/L Blood Urea Nitrogen 34 mg/dl Creatinine 1.10 mg/dl Est Creatinine Clear Calc Drug Dose 38.9 ml/min Estimated GFR () 54.9 Estimated GFR (Non- 47.4 BUN/Creatinine Ratio 30.5 Random Glucose 155 mg/dl Calcium Level 8.3 mg/dl Magnesium Level 2.6 mg/dl Test 06/29/16 11:25 Bedside Glucose 162 mg/dl Assessment and Plan 81 y/o female with Bilateral Lower Extremity Edema and SOB: No more shortness of breath, edema is better/resolving CHF vs Lymphedema, vs venous stasis vs from the side effect on medication such as amlodipine - Echo done in this admission which shows EF > 70%; class I diastolic dysfunction - Has been treated with Bumex 2 mg IV BID with albumin 25 g IV for total of 4 doses, creatinine was back to 1.3, today's creatinine is 1.1 patient's bilateral lung has no obvious crackle for now, bilateral lower extremity swelling is better, possible some other factors contribute to benefit lower extremity edema, TSH was normal, I feel no lower extremity swelling also may be contributed amlodipine , discontinue amlodipine, continue elevation, place compression stocking periprosthetic Accelerated hypertension -Has discontinue Amlodipine has increase metoprolol tartrate from 50 to 75 mg BID, Continue hydralazine 25 mg by mouth 3 times a day scheduled because of accelerated hypertension Lisinopril 2.5 mg started for blood pressure control because of renal function is resolving - Hydralazine 20 mg IV PRN Diabetes Mellitus: Check HbA1c was 6.9, we'll continue current care - Lantus 24 units SC HS and SSI H/O CVA - Plavix 75 mg daily PT OT and social service director consult, OT recommend maybe continue skilled OT, PT recommended may be okay to go home Counseling above blood pressure control with patient and family, told them better blood pressure control reduce the risk of stroke, heart disease and kidney disease, Although the individual targeted for the systolic blood pressure is different, I will recommend systolic blood pressure septic targeted around 150 or less than 150 if she is able to tolerate, patient and family agreed. Continue monitor blood pressure planning to discharge home tomorrow DVT Prophylaxis: SCDs Discussed with patient and family Continued [facility] stay due to: multiple IV medications needed Discharge planning: home
[2016-06-29] MEDS: INSULIN GLARGINE SOLOSTAR 100 UNITS/ML 3 ML PEN SC SCH (20:55)
[2016-06-30] VITALS (12 sets, daily range): BP systolic 166–195; BP diastolic 61–73; PULSE 56–69; TEMP 36.4–37; O2SAT 95–98
[2016-06-30] MEDS: NITROGLYCERIN OINT 2% 1GM PACKET EXT SCH ×4 (01:58→20:39)
[2016-06-30] MEDS: HydrALAZINE 10 MG TAB PO SCH (05:32)
[2016-06-30] MEDS: INSULIN ASPART 100 UNITS/ML 3 ML PEN SC SCH ×4 (06:30→22:13)
[2016-06-30 07:05] LABS: BASO % 0.5 %; BASO ABS # 0.06 K/uL (0-0.2); COMPLETE YES; EOS % 3.2 %; HEMATOCRIT 33.3 % (37-47); IG% 0.2 %; LYMPH % 17.2 %; MEAN CELL VOLUME 91.5 fL (80-100); MEAN CORPUSCULAR HEMOGLOBIN 30.5 pg (25-34); MEAN CORPUSCULAR HGB CONC 33.3 g/dl (32-36); MEAN PLATELET VOLUME 9.7 fL (7.4-10.4); NEUT % 68.9 %; PLATELET COUNT 394 K/uL (130-400); RED BLOOD COUNT 3.64 M/uL (4.2-5.4); WHITE BLOOD COUNT 11.05 K/uL (4.8-10.8)
[2016-06-30 07:50] LABS: BUN/CREATININE RATIO 25.4 (10-20); CALCIUM 8.9 mg/dl (8.5-10.1); CREATININE 1.2 mg/dl (0.60-1.20); MAGNESIUM 2.9 mg/dl (1.8-2.4); POTASSIUM 4.4 mmol/L (3.5-5.1)
[2016-06-30] MEDS: POTASSIUM CHLORIDE 20 MEQ TABCR PO SCH ×2 (08:08→22:03)
[2016-06-30] MEDS: METOPROLOL TARTRATE 25 MG TAB PO SCH ×2 (08:08→22:02)
[2016-06-30] MEDS: PAROXETINE 20 MG TAB PO SCH (08:08)
[2016-06-30] MEDS: CLOPIDOGREL BISULFATE 75 MG TAB PO SCH (08:09)
[2016-06-30] MEDS: ATORVASTATIN 40 MG TAB PO SCH (08:09)
[2016-06-30] MEDS: LISINOPRIL 5 MG TAB PO SCH (08:10)
[2016-06-30] MEDS: LIDODERM (LIDOCAINE) PATCH 5% TD SCH (08:11)
[2016-06-30] MEDS: VENLAFAXINE HCL XR 37.5 MG CAPXR PO SCH (08:11)
[2016-06-30] MEDS: HydrALAZINE HCL 20 MG/ML VIAL IV. PRN (09:59)
--- NOTE | 2016-06-30 10:55 | Clinical Documentation Query ---
CLINICAL DOCUMENTATION QUERY 06/27 daily progress note addendum clearly documents "possible acute diastolic (preserved EF) heart failure in setting of hypertensive heart disease/CKD III. Unless this diagnosis is carried through the record in may not be coded by [facility]'s coding department and associated clinical significance will be lost. In your clinical opinion is this patient being managed for: ( X ) Acute diastolic (Preserved EF) heart failure in setting of hypertensive heart disease and CKD III. ( ) Ruled out IF IN AGREEMENT, YOU MUST DOCUMENT ABOVE DIAGNOSTIC STATEMENT IN DAILY PROGRESS NOTES AND DISCHARGE SUMMARY. This document is not part of the patient's record. Thank You, Hossein Petty, RN [phone]
--- NOTE | 2016-06-30 10:56 | Progress Note ---
Subjective Date of Service: Jun 30, 2016. Subjective Pt evaluation today including: conversation w/ patient, conversation w/ family , physical exam, chart review, lab review, review of studies, conversation w/ professional employer consultant, review of inpatient medication list Blood pressure still up to 180s, requiring IV hydralazine, patient has no complaining, no headache no dizziness Problem List Medical Problems: (1) Anemia Status: Acute (2) Fluid overload Status: Acute (3) Gastrointestinal bleeding, upper Status: Acute (4) Hypertensive urgency Status: Acute (5) Pedal edema Status: Acute (6) SOB (shortness of breath) Status: Acute Review of Systems Constitutional: No chills, No fatigue, No fever, No problem reported, No sweats , No weakness, No weight loss Eyes: No diplopia, No discharge, No eye pain, No redness, No worsening of vision ENT: No dental problems, No hearing loss, No nasal symptoms, No sore throat, No tinnitus, No trouble swallowing, No unusual epistaxis Respiratory: No cough, No dyspnea at rest, No dyspnea on exertion, No hemoptysis, No shortness of breath, No sputum, No wheezing Cardiac: No PND, No chest pain, No claudication, No edema, No orthopnea, No palpitations Abdomen: No constipation, No diarrhea, No nausea, No pain, No vomiting Musculoskeletal: No calf pain, No joint pain, No muscle pain, No swelling Female : No abnormal vaginal bleeding, No dysuria, No hematuria, No incontinence, No urinary frequency, No vaginal discharge Neurologic: No balance problems, No memory loss, No numbness/tingling, No paralysis, No vertigo, No weakness Psychiatric: No anhedonism, No anxiety, No depression symptoms, No insomnia, No substance abuse Heme: No abnormal bleeding/bruising, No clotting problems, No night sweats, No swollen lymph nodes Endo: No excessive thirst, No excessive urination, No fatigue Skin: No bleeding, No color change, No itch, No new/changing skin lesions, No rash Objective Vital Signs Date Time Temp Pulse Resp B/P Pulse Ox O2 Delivery O2 Flow Rate FiO2 06/30/16 07:47 36.8 61 16 177/61 97 Room Air 06/30/16 05:27 36.4 67 20 195/73 97 Room Air 06/30/16 04:00 Room Air 06/30/16 02:09 36.8 65 18 169/69 97 Room Air 06/30/16 00:01 Room Air 06/29/16 23:32 36.7 63 20 174/63 96 Room Air 06/29/16 20:00 37.0 68 20 172/64 95 Room Air 06/29/16 20:00 Room Air 06/29/16 16:00 Room Air 06/29/16 14:55 36.9 65 18 184/75 97 Room Air 06/29/16 14:00 36.6 62 18 194/48 97 Room Air 06/29/16 12:00 95 Room Air 06/29/16 11:19 36.7 60 18 179/70 95 Room Air Physical Exam General Appearance: WD/WN, no apparent distress Eyes: normal inspection, PERRL, EOMI, sclerae normal ENT: normal ENT inspection, hearing grossly normal, pharynx normal Neck: supple, no adenopathy, thyroid normal, no JVD, no carotid bruits, trachea midline Respiratory/Chest: chest non-tender, lungs clear, normal breath sounds, no respiratory distress, no accessory muscle use Cardiovascular: regular rate, rhythm, no edema, no gallop, no JVD, no murmur Abdomen: normal bowel sounds, non tender, soft, no organomegaly, no pulsatile mass Extremities: normal range of motion, non-tender, normal inspection, no pedal edema, no calf tenderness, normal capillary refill, pelvis stable, + swelling ( trace edema) 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, no motor/sensory deficits, alert, normal mood/affect, oriented x 3 Skin: normal color, warm/dry, no rash Lymphatic: no adenopathy Laboratory Results Last 24 Hours Test 06/29/16 11:20 06/29/16 11:25 06/29/16 16:27 06/29/16 19:57 White Blood Count 10.99 K/uL Red Blood Count 3.55 M/uL Hemoglobin 11.0 g/dL Hematocrit 33.0 % Mean Corpuscular Volume 93.0 fL Mean Corpuscular Hemoglobin 31.0 pg Mean Corpuscular Hemoglobin Concent 33.3 g/dl Platelet Count 350 K/uL Mean Platelet Volume 9.6 fL Neutrophils (%) (Auto) 72.5 % Lymphocytes (%) (Auto) 14.5 % Monocytes (%) (Auto) 10.1 % Eosinophils (%) (Auto) 2.0 % Basophils (%) (Auto) 0.5 % Neutrophils # (Auto) 7.97 K/uL Lymphocytes # (Auto) 1.59 K/uL Monocytes # (Auto) 1.11 K/uL Eosinophils # (Auto) 0.22 K/uL Basophils # (Auto) 0.06 K/uL RDW Standard Deviation 49.9 fL RDW Coefficient of Variation 14.5 % Immature Granulocyte % (Auto) 0.4 % Immature Granulocyte # (Auto) 0.04 K/uL Sodium Level 139 mmol/L Potassium Level 4.7 mmol/L Chloride Level 105 mmol/L Carbon Dioxide Level 23 mmol/L Anion Gap 11.0 mmol/L Blood Urea Nitrogen 34 mg/dl Creatinine 1.10 mg/dl Est Creatinine Clear Calc Drug Dose 38.9 ml/min Estimated GFR () 54.9 Estimated GFR (Non- 47.4 BUN/Creatinine Ratio 30.5 Random Glucose 155 mg/dl Calcium Level 8.3 mg/dl Magnesium Level 2.6 mg/dl Bedside Glucose 162 mg/dl 116 mg/dl 199 mg/dl Test 06/30/16 06:30 06/30/16 07:11 White Blood Count 11.05 K/uL Red Blood Count 3.64 M/uL Hemoglobin 11.1 g/dL Hematocrit 33.3 % Mean Corpuscular Volume 91.5 fL Mean Corpuscular Hemoglobin 30.5 pg Mean Corpuscular Hemoglobin Concent 33.3 g/dl Platelet Count 394 K/uL Mean Platelet Volume 9.7 fL Neutrophils (%) (Auto) 68.9 % Lymphocytes (%) (Auto) 17.2 % Monocytes (%) (Auto) 10.0 % Eosinophils (%) (Auto) 3.2 % Basophils (%) (Auto) 0.5 % Neutrophils # (Auto) 7.61 K/uL Lymphocytes # (Auto) 1.90 K/uL Monocytes # (Auto) 1.11 K/uL Eosinophils # (Auto) 0.35 K/uL Basophils # (Auto) 0.06 K/uL RDW Standard Deviation 48.4 fL RDW Coefficient of Variation 14.3 % Immature Granulocyte % (Auto) 0.2 % Immature Granulocyte # (Auto) 0.02 K/uL Sodium Level 139 mmol/L Potassium Level 4.4 mmol/L Chloride Level 107 mmol/L Carbon Dioxide Level 24 mmol/L Anion Gap 8.0 mmol/L Blood Urea Nitrogen 30 mg/dl Creatinine 1.20 mg/dl Est Creatinine Clear Calc Drug Dose 35.7 ml/min Estimated GFR () 49.4 Estimated GFR (Non- 42.7 BUN/Creatinine Ratio 25.4 Random Glucose 82 mg/dl Calcium Level 8.9 mg/dl Magnesium Level 2.9 mg/dl Bedside Glucose 81 mg/dl Assessment and Plan 81 y/o female with Bilateral Lower Extremity Edema and SOB: Possible Acute diastolic (Preserved EF) heart failure in setting of hypertensive heart disease and CKD III. No more shortness of breath, edema is better/resolving CHF vs Lymphedema, vs venous stasis vs from the side effect on medication such as amlodipine - Echo done in this admission which shows EF > 70%; class I diastolic dysfunction - Has been treated with Bumex 2 mg IV BID with albumin 25 g IV for total of 4 doses, creatinine was back to 1.3, today's creatinine is 1.2 patient's bilateral lung has no obvious crackle for now, bilateral lower extremity swelling is better, possible some other factors contribute to benefit lower extremity edema, TSH was normal, I feel no lower extremity swelling also may be contributed amlodipine , discontinue amlodipine, continue elevation, place compression stocking periprosthetic Accelerated hypertension; still poor control -Has discontinue Amlodipine because of concern of cause of lower ext edema has increase metoprolol tartrate from 50 to 75 mg BID, Has start hydralazine low-dose, we will increase to 37.5 mg by mouth 3 times a day scheduled because of accelerated hypertension Has started Lisinopril 2.5 mg , we'll increase to 5 mg by mouth daily for blood pressure control because of renal function is resolving - Hydralazine 20 mg IV PRN Diabetes Mellitus: Check HbA1c was 6.9, we'll continue current care - Lantus 24 units SC HS and SSI H/O CVA - Plavix 75 mg daily PT OT and social worker masters consult, OT recommend maybe continue skilled OT, PT recommended may be okay to go home Counseling above blood pressure control with patient and family, told them better blood pressure control reduce the risk of stroke, heart disease and kidney disease, Although the individual targeted for the systolic blood pressure is different, I will recommend systolic blood pressure septic targeted around 150 or less than 150 if she is able to tolerate, patient and family agreed. Continue monitor blood pressure planning to discharge home tomorrow DVT Prophylaxis: SCDs Discussed with patient and family Continued [facility] stay due to: multiple IV medications needed Discharge planning: home
[2016-06-30] MEDS: INSULIN GLARGINE SOLOSTAR 100 UNITS/ML 3 ML PEN SC SCH (22:13)
[2016-07-01] VITALS (15 sets, daily range): BP systolic 159–203; BP diastolic 58–82; PULSE 60–73; TEMP 36.5–36.8; O2SAT 95–98
[2016-07-01] MEDS: NITROGLYCERIN OINT 2% 1GM PACKET EXT SCH ×4 (01:58→20:34)
[2016-07-01] MEDS: ATORVASTATIN 40 MG TAB PO SCH (08:21)
[2016-07-01] MEDS: POTASSIUM CHLORIDE 20 MEQ TABCR PO SCH ×2 (08:21→20:35)
[2016-07-01] MEDS: CLOPIDOGREL BISULFATE 75 MG TAB PO SCH (08:21)
[2016-07-01] MEDS: VENLAFAXINE HCL XR 37.5 MG CAPXR PO SCH (08:21)
[2016-07-01] MEDS: METOPROLOL TARTRATE 25 MG TAB PO SCH ×2 (08:22→20:36)
[2016-07-01] MEDS: LISINOPRIL 5 MG TAB PO SCH (08:22)
[2016-07-01] MEDS: LIDODERM (LIDOCAINE) PATCH 5% TD SCH (08:23)
[2016-07-01] MEDS: INSULIN ASPART 100 UNITS/ML 3 ML PEN SC SCH ×4 (08:24→20:37)
[2016-07-01] MEDS: HydrALAZINE HCL 20 MG/ML VIAL IV. PRN (11:03)
[2016-07-01] MEDS: PAROXETINE 20 MG TAB PO SCH (11:03)
[2016-07-01] MEDS ORDERED: LISINOPRIL 5 MG TAB PO ONE (13:00)
--- NOTE | 2016-07-01 13:35 | Progress Note ---
Subjective Date of Service: Jul 01, 2016. Subjective Pt evaluation today including: conversation w/ patient, conversation w/ family , physical exam, chart review, lab review, review of studies, review of inpatient medication list Blood pressure still sometimes up to more than 200, no dizziness denied chest pain Problem List Medical Problems: (1) Anemia Status: Acute (2) Fluid overload Status: Acute (3) Gastrointestinal bleeding, upper Status: Acute (4) Hypertensive urgency Status: Acute (5) Pedal edema Status: Acute (6) SOB (shortness of breath) Status: Acute Review of Systems Constitutional: No chills, No fatigue, No fever, No problem reported, No sweats , No weakness, No weight loss Eyes: No diplopia, No discharge, No eye pain, No redness, No worsening of vision ENT: No dental problems, No hearing loss, No nasal symptoms, No sore throat, No tinnitus, No trouble swallowing, No unusual epistaxis Respiratory: No cough, No dyspnea at rest, No dyspnea on exertion, No hemoptysis, No shortness of breath, No sputum, No wheezing Cardiac: + edema (not getting worse), No PND, No chest pain, No claudication, No orthopnea, No palpitations Abdomen: No constipation, No diarrhea, No nausea, No pain, No vomiting Musculoskeletal: No calf pain, No joint pain, No muscle pain, No swelling Female : No abnormal vaginal bleeding, No dysuria, No hematuria, No incontinence, No urinary frequency, No vaginal discharge Neurologic: No balance problems, No memory loss, No numbness/tingling, No paralysis, No vertigo, No weakness Psychiatric: No anhedonism, No anxiety, No depression symptoms, No insomnia, No substance abuse Heme: No abnormal bleeding/bruising, No clotting problems, No night sweats, No swollen lymph nodes Endo: No excessive thirst, No excessive urination, No fatigue Skin: No bleeding, No color change, No itch, No new/changing skin lesions, No rash Objective Vital Signs Date Time Temp Pulse Resp B/P Pulse Ox O2 Delivery O2 Flow Rate FiO2 07/01/16 12:30 Room Air 07/01/16 11:20 36.5 66 20 180/82 98 Room Air 07/01/16 08:25 Room Air 07/01/16 08:24 67 184/75 07/01/16 07:23 36.7 65 20 203/73 96 Room Air 07/01/16 04:20 159/78 07/01/16 04:00 96 Room Air 07/01/16 03:43 36.8 63 20 183/70 95 Room Air 07/01/16 02:28 61 160/62 07/01/16 00:00 96 Room Air 06/30/16 22:00 66 169/73 06/30/16 20:29 36.7 69 18 167/67 98 Room Air 06/30/16 20:00 97 Room Air 06/30/16 16:59 37.0 56 20 166/64 95 06/30/16 16:00 97 Room Air Physical Exam General Appearance: WD/WN, no apparent distress Eyes: normal inspection, PERRL, EOMI, sclerae normal ENT: normal ENT inspection, hearing grossly normal, pharynx normal Neck: supple, no adenopathy, thyroid normal, no JVD, no carotid bruits, trachea midline Respiratory/Chest: chest non-tender, lungs clear, normal breath sounds, no respiratory distress, no accessory muscle use Cardiovascular: regular rate, rhythm, no gallop, no JVD, no murmur, + pertinent finding (1+) Abdomen: normal bowel sounds, non tender, soft, no organomegaly, no pulsatile mass Extremities: normal range of motion, non-tender, normal inspection, no pedal edema, no calf tenderness, normal capillary refill, pelvis stable 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, no motor/sensory deficits, alert, normal mood/affect, oriented x 3 Skin: normal color, warm/dry, no rash Lymphatic: no adenopathy Laboratory Results Last 24 Hours Test 06/30/16 15:52 06/30/16 20:42 07/01/16 07:38 07/01/16 11:29 Bedside Glucose 102 mg/dl 216 mg/dl 103 mg/dl 157 mg/dl Assessment and Plan 81 y/o female with Bilateral Lower Extremity Edema and SOB was admitted on 06/25, lower extremity swelling is significant better, but the blood pressure has been poorly controlled Bilateral Lower Extremity Edema and SOB: Possible Acute diastolic (Preserved EF) heart failure in setting of hypertensive heart disease and CKD III. No more shortness of breath, edema is better/resolving CHF vs Lymphedema, vs venous stasis vs from the side effect on medication such as amlodipine - Echo done in this admission which shows EF > 70%; class I diastolic dysfunction - Has been treated with Bumex 2 mg IV BID with albumin 25 g IV for total of 4 doses, creatinine was back to 1.3, has been stable creatinine is 1.2 Resume home dose of Lasix 20 mg by mouth daily patient's bilateral lung has no obvious crackle for now, bilateral lower extremity swelling is better, possible some other factors contribute to benefit lower extremity edema, TSH was normal, I feel no lower extremity swelling also may be contributed amlodipine , discontinue amlodipine, continue elevation, place compression stocking periprosthetic Accelerated hypertension; still poor control -Has discontinue Amlodipine because of concern of cause of lower ext edema has increase metoprolol tartrate from 50 to 75 mg BID, Has start hydralazine low-dose, slowly increase , we'll increase to 50 , 4 times a day scheduled because of accelerated hypertension Has started Lisinopril 2.5 mg , we'll increase to 10 mg by mouth daily for blood pressure control because of renal function is resolving - Hydralazine 20 mg IV PRN Checking bilateral renal artery ultrasound to rule out stenosis because of difficult control hypertension Diabetes Mellitus: Check HbA1c was 6.9, we'll continue current care - Lantus 24 units SC HS and SSI H/O CVA - Plavix 75 mg daily PT OT and social media manager consult, OT recommend maybe continue skilled OT, PT recommended may be okay to go home Counseling above blood pressure control with patient and family, told them better blood pressure control reduce the risk of stroke, heart disease and kidney disease, Although the individual targeted for the systolic blood pressure is different, I will recommend systolic blood pressure septic targeted around 150 or less than 150 if she is able to tolerate, patient and family agreed. Continue monitor blood pressure planning to discharge home tomorrow DVT Prophylaxis: SCDs Discussed with patient and family Possible can go home tomorrow Continued [facility] stay due to: multiple IV medications needed Discharge planning: home
--- NOTE | 2016-07-01 19:51 | DIAGNOSTIC IMAGING REPORT ---
Renal material Doppler DUPLEX RENAL ARTERY CLINICAL HISTORY: to tule out renal artery stenosis hypertension TECHNIQUE: Arterial Doppler COMPARISON STUDY: None FINDINGS: Moderately compromised exam due to overlying bowel content. Mild velocity increase origin right renal artery at 1 80 cm/s. No significant increased velocity abnormalities of the left kidney. IMPRESSION: Difficult exam due to considerable overlying bowel content. Moderate narrowing origin right renal artery. Electronically signed by: Aristides Bower M.D. 07/01/2016 7:50 PM Dictated Date/Time: 07/01/2016 7:48 PM
[2016-07-01] MEDS: INSULIN GLARGINE SOLOSTAR 100 UNITS/ML 3 ML PEN SC SCH (20:46)
[2016-07-02] VITALS (8 sets, daily range): BP systolic 155–233; BP diastolic 65–89; PULSE 59–77; TEMP 36.5–36.9; O2SAT 96–98
[2016-07-02] MEDS: NITROGLYCERIN OINT 2% 1GM PACKET EXT SCH ×2 (02:23→07:04)
[2016-07-02] MEDS ORDERED: COUGH DROP (SUGAR FREE) LOZ 24 LOZ/1 BOX ONE (02:25)
[2016-07-02] MEDS: HydrALAZINE HCL 20 MG/ML VIAL IV. PRN (07:11)
[2016-07-02] MEDS: LIDODERM (LIDOCAINE) PATCH 5% TD SCH (07:50)
[2016-07-02] MEDS: PAROXETINE 20 MG TAB PO SCH (07:50)
[2016-07-02] MEDS: CLOPIDOGREL BISULFATE 75 MG TAB PO SCH (07:50)
[2016-07-02] MEDS: METOPROLOL TARTRATE 25 MG TAB PO SCH (07:51)
[2016-07-02] MEDS: POTASSIUM CHLORIDE 20 MEQ TABCR PO SCH (07:51)
[2016-07-02] MEDS: ATORVASTATIN 40 MG TAB PO SCH (07:51)
[2016-07-02] MEDS: VENLAFAXINE HCL XR 37.5 MG CAPXR PO SCH (07:52)
[2016-07-02 08:41] LABS: BUN/CREATININE RATIO 27.8 (10-20); CALCIUM 8.7 mg/dl (8.5-10.1); CREATININE 1.2 mg/dl (0.60-1.20); MAGNESIUM 2.6 mg/dl (1.8-2.4); POTASSIUM 4.7 mmol/L (3.5-5.1)
[2016-07-02] MEDS: INSULIN ASPART 100 UNITS/ML 3 ML PEN SC SCH ×2 (08:48→12:12)
--- NOTE | 2016-07-02 08:55 | Progress Note ---
Subjective Date of Service: Jul 02, 2016. Problem List Medical Problems: (1) Anemia Status: Acute (2) Fluid overload Status: Acute (3) Gastrointestinal bleeding, upper Status: Acute (4) Hypertensive urgency Status: Acute (5) Pedal edema Status: Acute (6) SOB (shortness of breath) Status: Acute Medications Medications (Trade) Dose Ordered Sig/Betsy Route Start Time Stop Time Status Last Admin Dose Admin Hydralazine HCl (Apresoline Tab) 50 mg Q6 PO 07/01/16 18:00 07/31/16 17:59 07/02/16 07:50 50 MG Lisinopril (Zestril Tab) 10 mg QAM PO 07/02/16 09:00 08/01/16 08:59 07/02/16 07:50 10 MG Lisinopril (Zestril Tab) 5 mg NOW ONCE PO 07/01/16 13:00 07/01/16 13:01 DC 07/01/16 14:11 5 MG Furosemide (Lasix Tab) 20 mg QAM PO 07/02/16 09:00 08/01/16 08:59 07/02/16 07:50 20 MG Menthol (Nice Melia) 24 melia STK-MED ONCE .ROUTE 07/02/16 02:25 07/02/16 02:26 DC 07/02/16 02:23 24 MELIA Objective Vital Signs Date Time Temp Pulse Resp B/P Pulse Ox O2 Delivery O2 Flow Rate FiO2 07/02/16 07:48 36.6 68 18 155/68 98 Room Air 07/02/16 07:10 36.6 77 20 214/85 96 Room Air 233/71 07/02/16 04:23 36.9 59 18 173/70 96 Room Air 07/02/16 04:00 Room Air 07/02/16 00:00 Room Air 07/01/16 22:59 36.6 60 18 164/72 97 Room Air 07/01/16 20:32 65 18 181/61 97 Room Air 07/01/16 20:00 98 Room Air 07/01/16 17:41 64 172/70 97 Room Air 07/01/16 16:00 98 Room Air 07/01/16 14:54 36.8 63 18 163/58 98 Room Air 07/01/16 14:20 73 173/61 07/01/16 12:30 Room Air 07/01/16 11:20 36.5 66 20 180/82 98 Room Air Laboratory Results Last 24 Hours Test 07/01/16 11:29 07/01/16 16:24 07/01/16 19:57 07/02/16 07:20 Bedside Glucose 157 mg/dl 95 mg/dl 110 mg/dl 99 mg/dl Test 07/02/16 07:45 Sodium Level 140 mmol/L Potassium Level 4.7 mmol/L Chloride Level 109 mmol/L Carbon Dioxide Level 20 mmol/L Anion Gap 11.0 mmol/L Blood Urea Nitrogen 33 mg/dl Creatinine 1.20 mg/dl Est Creatinine Clear Calc Drug Dose 36.0 ml/min Estimated GFR () 49.4 Estimated GFR (Non- 42.7 BUN/Creatinine Ratio 27.8 Random Glucose 134 mg/dl Calcium Level 8.7 mg/dl Magnesium Level 2.6 mg/dl * Name: GHASSAN MARR Study Date: 06/27/2016 02:35 PM BP: 179/64 mmHg * Patient Location: [facility]\2 HR: 75 * : 1935 (M/d/yyyy) Gender: Female Height: 62 in * Age: 81 yrs Ethnicity: [place] Weight: 173 lb * Ordering Physician: Carlotta Petty * Referring Physician: Afia Villa * Performed By: Polly Carty RCS * * Reason For Study: CHF * BSA: 1.8 m2 * -- Conclusions -- * Left ventricular systolic function is normal. * Grade I diastolic dysfunction, (abnormal relaxation pattern). * The left atrium is borderline dilated. * There is mild mitral annular calcification. * Right ventricular systolic pressure is normal. * * [~ rep ct add3]] Renal material Doppler DUPLEX RENAL ARTERY CLINICAL HISTORY: to tule out renal artery stenosis hypertension TECHNIQUE: Arterial Doppler COMPARISON STUDY: None FINDINGS: Moderately compromised exam due to overlying bowel content. Mild velocity increase origin right renal artery at 1 80 cm/s. No significant increased velocity abnormalities of the left kidney. IMPRESSION: Difficult exam due to considerable overlying bowel content. Moderate narrowing origin right renal artery. Electronically signed by: Aristides Bower M.D. 07/01/2016 7:50 PM Assessment and Plan 81 y/o female with Bilateral Lower Extremity Edema and SOB was admitted on 06/25, lower extremity swelling is significant better, but the blood pressure has been poorly controlled Bilateral Lower Extremity Edema and SOB: Possible Acute diastolic (Preserved EF) heart failure in setting of hypertensive heart disease and CKD III. No more shortness of breath, edema is better/resolving CHF vs Lymphedema, vs venous stasis vs from the side effect on medication such as amlodipine - Echo done in this admission which shows EF > 70%; class I diastolic dysfunction - Has been treated with Bumex 2 mg IV BID with albumin 25 g IV for total of 4 doses, creatinine was back to 1.3, has been stable creatinine is 1.2 Resume home dose of Lasix 20 mg by mouth daily -Discussed with , Radiology reg imaging of renal arteries (US kidneys with dopplers shows moderate ADDY on Right). At best 30 to 40 percent stenosis and likely not the reason for poorly controlled HTN. Recommends no further evaluation. patient's bilateral lung has no obvious crackle for now, bilateral lower extremity swelling is better, possible some other factors contribute to benefit lower extremity edema, TSH was normal, I feel no lower extremity swelling also may be contributed amlodipine , discontinue amlodipine, continue elevation, place compression stocking periprosthetic Accelerated hypertension; still poor control -Has discontinue Amlodipine because of concern of cause of lower ext edema has increase metoprolol tartrate from 50 to 75 mg BID, Has start hydralazine low-dose, slowly increase , we'll increase to 50 , 4 times a day scheduled because of accelerated hypertension Has started Lisinopril 2.5 mg , we'll increase to 10 mg by mouth daily for blood pressure control because of renal function is resolving - Hydralazine 20 mg IV PRN Checking bilateral renal artery ultrasound to rule out stenosis because of difficult control hypertension Diabetes Mellitus: Check HbA1c was 6.9, we'll continue current care - Lantus 24 units SC HS and SSI H/O CVA - Plavix 75 mg daily Continued [facility] stay due to: multiple IV medications needed Discharge planning: home
[2016-07-02] MEDS ORDERED: FUROSEMIDE 20 MG TAB PO SCH (09:00)
[2016-07-02] MEDS ORDERED: LISINOPRIL 10 MG TAB PO SCH (09:00)
[2016-07-02] MEDS ORDERED: LISINOPRIL 5 MG TAB PO SCH (09:00)
[2016-07-02] MEDS ORDERED: OPTIRAY 320 IV PRN (10:15)
--- NOTE | 2016-07-02 10:27 | DIAGNOSTIC IMAGING REPORT ---
CT maxillofacial region sinusitis. CLINICAL HISTORY: Pain TECHNIQUE: Transaxial acquisition with multi axial reformatted images. COMPARISON STUDY: None FINDINGS: Considerable hypertrophic change of the right and to lesser extent left nasal turbinates. Shows near complete occlusion of the right nasal canal with narrowing of the left nasal canal considered moderate. Minimal mucosal thickening right maxillary sinus. Soft tissue occlusion right ostiomeatal unit. Left maxillary sinus is clear with left ostiomeatal unit patent. Orbital margins appear intact. Osseous structures appear to be intact. Moderate mucosal thickening of the ethmoid sinuses. Frontal sinuses are not well-developed in this patient. Sphenoid sinuses are clear. Moderate degenerative change of the right and to a lesser extent left temporomandibular joint. IMPRESSION: 1. Considerable hypertrophic change right and to lesser extent left nasal turbinates creating near occlusion of the right nasal canal and moderate narrowing of the left. 2. Mild mucosal thickening right maxillary and ethmoid sinuses. 3. Soft tissue occlusion route right ostiomeatal unit. note is made of a small periapical abscess of the posterior right maxillary molar Electronically signed by: Aristides Bower M.D. 07/02/2016 10:26 AM Dictated Date/Time: 07/02/2016 10:16 AM
--- NOTE | 2016-07-02 13:35 | ENT CONSULTATION ---
DATE OF ADMISSION: 06/25/2016 DIAGNOSIS: Mild chronic sinusitis. HISTORY OF PRESENT ILLNESS: This 81-year-old lady was admitted via the Emergency Room because of shortness of breath and bilateral leg edema. PAST MEDICAL HISTORY: Pertinent for hypertension. She complains of nasal congestion, although not really sinus headaches or history of sinus infections. She does have obstructive sleep apnea and has been on CPAP for about 10+ years. PREVIOUS SURGERIES: Cholecystectomy, tonsillectomy, hysterectomy, thyroid surgery, total hip and bladder surgery. FAMILY HISTORY: Negative. SOCIAL HISTORY: Denies alcohol. Nonsmoker. MEDICATIONS: As listed. ALLERGIES: INCLUDE AMITRIPTYLINE, CIPROFLOXACIN, GABAPENTIN, LATEX, MELOXICAM AND METFORMIN. PHYSICAL EXAMINATION: GENERAL: Obese female in no acute distress, eating her lunch with no difficulty, but complaining of nasal congestion HEAD: Normocephalic. EYES: Normal. EARS: Normal. NOSE: Nasal passages show swollen turbinates. There were no sign of polyps. There is septal deviation to right with obstruction. THROAT: Shows status post tonsillectomy but otherwise normal. IMAGING: The CT scan was reviewed. There is some mucosal swelling in the right maxillary and right ethmoid sinus with mucosal thickening in right nasofrontal duct, although the frontal sinuses are not fully developed. There is significant hypertrophy of the right inferior turbinate. IMPRESSION: Chronic ethmoidal and maxillary sinusitis with no sign of acute sinusitis requiring immediate intervention. She should try some saline irrigation and Flonase and contact me if the sinusitis becomes recurrent. At this point she would not be a surgical candidate unless she tried medical management including Flonase and antibiotics. ANDRES
[2016-07-02] MEDS ORDERED: LSN10 PO (13:56)
[2016-07-02] MEDS ORDERED: APR50 PO (13:56)
--- NOTE | 2016-07-02 14:03 | Discharge Summary ---
Discharge Summary Date of Service Jul 02, 2016. Discharge Summary Admission Date: Jun 25, 2016 at 21:13 Discharge Date: Jun 30, 2016 Discharge Disposition: Home Principal Diagnosis: Leg edema, Benign hypertension Immunizations: Have You Had Influenza Vaccine: Yes History of Tetanus Vaccine?: Yes History of Pneumococcal: Yes History of Hepatitis B Vaccine: No Consultations: Cardiology Medication Reconciliation New Medications: Hydralazine HCl (Hydralazine HCl) 50 Mg Tab 50 MG PO Q6 for 30 Days, #120 TAB Lisinopril (Zestril) 10 Mg Tab 10 MG PO QAM for 30 Days, #30 TAB 4 Refills Metoprolol Tartrate (Lopressor) 25 Mg Tab 75 MG PO BID for 30 Days, #180 TAB Changed Medications: Furosemide (Lasix) 20 Mg Tab 20 MG PO DAILY for 30 Days, #30 TAB (Changed from: BID) AM/1500 Continued Medications: Atorvastatin (Atorvastatin Calcium) 40 Mg Tab 40 MG PO QAM Clopidogrel (Plavix) 75 Mg Tab 75 MG PO DAILY, TAB Hydralazine HCl (Hydralazine HCl) 10 Mg Tab 10 MG PO TID Insulin Aspart (Novolog Penfill) 100 Unit/ Inj 12 UNITS SC TIDM Insulin Glargine (Lantus Solostar Pen) 100 Unit/ Inj 24 UNITS SC HS Meclizine Hcl (Meclizine Hcl) 25 Mg Tab 1 TAB PO TID PRN for Dizziness or Vertigo, TAB Paroxetine (Paroxetine HCl) 10 Mg Tab 20 MG PO QAM Venlafaxine Hcl (Venlafaxine Extended Rel) 37.5 Mg Cap 37.5 MG PO DAILY, #30 Discontinued Medications: Amlodipine (Norvasc) 5 Mg Tab 5 MG PO BID, TAB Metoprolol Tartrate (Lopressor) (Lopressor) 25 Mg Tab 25 MG PO BID, TAB Discharge Exam Physical Exam: General Appearance: WD/WN, no apparent distress Eyes: normal inspection ENT: hearing grossly normal Respiratory/Chest: chest non-tender, lungs clear Cardiovascular: regular rate, rhythm Abdomen / GI: normal bowel sounds, soft Extremities: normal inspection, + pedal edema 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 No more shortness of breath, edema is better/resolving CHF vs Lymphedema, vs venous stasis vs from the side effect on medication such as amlodipine - Echo done in this admission which shows EF > 70%; class I diastolic dysfunction - Has been treated with Bumex 2 mg IV BID with albumin 25 g IV for total of 4 doses, creatinine was back to 1.3, has been stable creatinine is 1.2 Resume home dose of Lasix 20 mg by mouth daily -Discussed with , Radiology reg imaging of renal arteries (US kidneys with dopplers shows moderate ADDY on Right). At best 30 to 40 percent stenosis and likely not the reason for poorly controlled HTN. Recommends no further evaluation. Accelerated hypertension; still poor control -Has discontinue Amlodipine because of concern of cause of lower ext edema has increase metoprolol tartrate from 50 to 75 mg BID, Has start hydralazine low-dose, slowly increase , we'll increase to 50 , 4 times a day scheduled because of accelerated hypertension Has started Lisinopril 2.5 mg , we'll increase to 10 mg by mouth daily for blood pressure control because of renal function is resolving - Used Hydralazine 20 mg IV PRN Checking bilateral renal artery ultrasound to rule out stenosis because of difficult control hypertension Diabetes Mellitus: Check HbA1c was 6.9, we'll continue current care - Lantus 24 units SC HS and SSI H/O CVA - Plavix 75 mg daily Nasal congestion - Follow up with ENT as OP. Total Time Spent: Greater than 30 minutes This includes examination of the patient, discharge planning, medication reconciliation, and communication with other providers. Discharge Instructions Please refer to the electronic Patient Visit Report (Discharge Instructions) for additional information. Follow-Up PCP in one week
== END 2016-07-02 14:16 | disposition home or self-care (01) | DRG 291 ==
LOC: ENRESERVDT → ENRESERVTM → EDBD 16:27 → C.EDB 16:28 → C.MED 21:13
PROVIDERS: ADMIT Hospitalist; ATTEND Hospitalist
DX: I13.0 Hypertensive heart and chronic kidney disease with heart failure and stage 1 through stage 4 chronic kidney disease, or unspecified chronic kidney disease (principal); I50.31 Acute diastolic (congestive) heart failure; E11.22 Type 2 diabetes mellitus with diabetic chronic kidney disease; N18.3 Chronic kidney disease, stage 3 (moderate); F32.9 Major depressive disorder, single episode, unspecified; Z86.73 Personal history of transient ischemic attack (TIA), and cerebral infarction without residual deficits; E78.00 Pure hypercholesterolemia, unspecified; M06.9 Rheumatoid arthritis, unspecified; Z79.4 Long term (current) use of insulin; I25.2 Old myocardial infarction; Z96.651 Presence of right artificial knee joint; Z82.49 Family history of ischemic heart disease and other diseases of the circulatory system; G47.33 Obstructive sleep apnea (adult) (pediatric); Z79.02 Long term (current) use of antithrombotics/antiplatelets; I89.0 Lymphedema, not elsewhere classified; J32.0 Chronic maxillary sinusitis

== ENCOUNTER → 2016-07-07 | Outpatient (CLI) | payer OTHER ==
[~2016-07-07] MED LIST changes: -AMLO-110 PO; +APR50 PO; -EFF/375 PO; +LPR25 PO; +LSN10 PO; -METO25TA56 PO; +VENL37.593 PO
--- NOTE | 2016-07-07 16:38 | DIAGNOSTIC IMAGING REPORT ---
CHEST 2 VIEWS ROUTINE CLINICAL HISTORY: R42 dyspnea. Chest pain. COMPARISON STUDY: 06/25/2016 FINDINGS: The bones soft tissues and hemidiaphragms are normal. The cardiomediastinal silhouette is normal. The lungs are clear. The pulmonary vasculature is normal. IMPRESSION: Negative chest. Electronically signed by: Aristides Bower M.D. 07/07/2016 4:36 PM Dictated Date/Time: 07/07/2016 4:35 PM
== END | disposition home or self-care (01) ==
LOC: C.RAD1850 16:21
PROVIDERS: ATTEND Family Medicine
DX: R42 Dizziness and giddiness (principal); E87.6 Hypokalemia; R05 Cough; Z09 Encounter for follow-up examination after completed treatment for conditions other than malignant neoplasm

== ENCOUNTER → 2016-08-11 | Outpatient (CLI) | payer OTHER ==
--- NOTE | 2016-08-11 14:41 | DIAGNOSTIC IMAGING REPORT ---
BILATERAL CAROTID DOPPLER STUDY HISTORY: Stenosis OCCLUSION/STENOSIS OF R CAROTID ARTERY COMPARISON: 08/12/2012 TECHNIQUE: Real-time, grayscale, and color Doppler sonography of the carotid arteries was performed. Imaging reviewed in the transverse and longitudinal planes. All measurements were calculated based on NASCET criteria. FINDINGS: Antegrade flow is seen in the bilateral vertebral arteries. The brachial pressures are hemodynamically similar. Moderate plaque formation bilaterally The peak systolic velocity within the right ICA is 183. The right systolic ratio is 1.41. The peak systolic velocity within the left ICA is 129. The left systolic ratio is 0.89. IMPRESSION: 1. 70-80% stenosis right internal carotid artery. 2. No significant stenosis left internal carotid artery 3. High-grade stenotic changes of the extracranial carotid arteries bilaterally. 4. All findings are slightly progressive compared to the prior study Electronically signed by: Aristides Bower M.D. 08/11/2016 2:39 PM Dictated Date/Time: 08/11/2016 2:36 PM
== END | disposition home or self-care (01) ==
LOC: C.ULTR 12:55
PROVIDERS: ATTEND Family Medicine
DX: I65.21 Occlusion and stenosis of right carotid artery (principal)

== ENCOUNTER → 2016-08-11 | Outpatient (CLI) | payer OTHER ==
--- NOTE | 2016-08-11 14:21 | DIAGNOSTIC IMAGING REPORT ---
RENAL ULTRASOUND HISTORY: Renal insufficiency E11.9 Diabetes [id number] [id number] Ch COMPARISON: None. FINDINGS: Right kidney: Maximum dimension 10.1 cm. Slight fullness right renal pelvis. No evidence for hydronephrosis. Mild scarring of the right renal cortex. Slight cortical thinning. Left kidney: Maximum dimension 9.2 cm. No evidence for hydronephrosis. Several small cortical cysts measuring up to 1 cm. Cortical scarring left kidney. Bladder: No bladder wall thickening. The bilateral ureteral jets were identified. IMPRESSION: 1. Findings consistent with developing nonobstructive renal insufficiency. 2. Moderate cortical scarring of both kidneys with a mild increase in cortical echogenicity bilaterally. 3. No evidence for hydronephrosis. 4. Several small left renal cortical cysts Electronically signed by: Aristides Bower M.D. 08/11/2016 2:20 PM Dictated Date/Time: 08/11/2016 2:18 PM
== END | disposition home or self-care (01) ==
LOC: C.ULTR 12:53
PROVIDERS: ATTEND Internal Medicine Nephrology
DX: E11.9 Type 2 diabetes mellitus without complications (principal); N18.3 Chronic kidney disease, stage 3 (moderate); R80.9 Proteinuria, unspecified; I12.9 Hypertensive chronic kidney disease with stage 1 through stage 4 chronic kidney disease, or unspecified chronic kidney disease; I65.21 Occlusion and stenosis of right carotid artery

== ENCOUNTER → 2016-08-15 | Outpatient (CLI) | payer OTHER ==
[2016-08-15 14:44] LABS: HEMATOCRIT 33.9 % (37-47); MEAN CORPUSCULAR HGB CONC 31.3 g/dl (32-36); MEAN PLATELET VOLUME 9.9 fL (7.4-10.4); PLATELET COUNT 471 K/uL (130-400); RED BLOOD COUNT 3.53 M/uL (4.2-5.4); WHITE BLOOD COUNT 11.32 K/uL (4.8-10.8)
[2016-08-15 14:45] LABS: URINE APPEARANCE CLEAR (CLEAR); URINE BILIRUBIN NEG (NEG); URINE COLOR YELLOW; URINE EPITHELIAL CELL AUTO >30 /lpf (0-5); URINE NITRITE NEG (NEG); URINE SPECIFIC GRAVITY 1.014 (1.000-1.030); UROBILINOGEN NEG (NEG)
[2016-08-15 14:48] LABS: MANUAL MICROSCOPIC REQUIRED? NO; REVIEW REQ? NO
[2016-08-15 15:08] LABS: ALB/GLOB RATIO 0.7 (0.9-2); ALKALINE PHOSPHATASE 108 U/L (45-117); ALT/SGPT 18 U/L (12-78); AST/SGOT 17 U/L (15-37); BLOOD UREA NITROGEN 47 mg/dl (7-18); BUN/CREATININE RATIO 24.6 (10-20); CARBON DIOXIDE 25 mmol/L (21-32); GLUCOSE 50 mg/dl (70-99)
[2016-08-15 15:14] LABS: URINE TOTAL PROTEIN 71.2 mg/dl (0-11.9)
[2016-08-15 15:47] LABS: CHLORIDE 108 mmol/L (98-107); POTASSIUM 4.6 mmol/L (3.5-5.1); SODIUM 143 mmol/L (136-145)
== END | disposition home or self-care (01) ==
LOC: C.LAB1850 12:48
PROVIDERS: ATTEND Internal Medicine Nephrology
DX: E11.9 Type 2 diabetes mellitus without complications (principal); I10 Essential (primary) hypertension; R80.9 Proteinuria, unspecified; N18.3 Chronic kidney disease, stage 3 (moderate)

== ENCOUNTER 2018-12-01 20:21 | Inpatient (IN) ==
[2018-12-01] MEDS ORDERED: NITROGLYCERIN 2% OINTMENT 30GM TUBE EXT STA (22:39)
[2018-12-01] MEDS ORDERED: SODIUM CHLORIDE 0.9% 500 ML IV SCH (22:45)
[2018-12-01 23:04] LABS: Basophils # (auto) 0.06 K/uL (0-0.2); Basophils % (auto) 0.6 %; Hematocrit (blood only) 30.1 % (37-47); Hemoglobin 9.7 g/dL (12.0-16.0); Immature Granulocytes # (auto) 0.03 K/uL (0.00-0.02); Immature Granulocytes % (auto) 0.3 %; Lymphocytes # (auto) 2.48 K/uL (1.2-3.4); Lymphocytes % (auto) 24.5 %; Mean Corpuscular Hemoglobin 30.9 pg (25-34); Mean Corpuscular Hgb Conc 32.2 g/dL (32-36); Mean Corpuscular Volume 95.9 fL (80-100); Mean Platelet Volume 9.8 fL (7.4-10.4); Monocytes # (auto) 0.77 K/uL (0.11-0.59); Monocytes % (auto) 7.6 %; Neutrophils # (auto) 6.58 K/uL (1.4-6.5); Platelet Count 339 K/uL (130-400); RDW Coefficient of Variation 14.3 % (11.5-14.5); Red Blood Count 3.14 M/uL (4.2-5.4); White Blood Count 10.12 K/uL (4.8-10.8)
[2018-12-01 23:18] LABS: INR 0.9 (0.9-1.1); Partial Thromboplastin Time 26.1 Seconds (21.0-31.0); Prothrombin Time 9.7 Seconds (9.0-12.0)
[2018-12-01 23:22] LABS: Albumin Level 3.3 gm/dl (3.4-5.0); BUN Creatinine Ratio 20.5 (10-20); Calcium 8.4 mg/dl (8.5-10.1); Creatinine Clr Calc Pharmacy 15.9 ml/min; Est GFR (African American) 21.1; Est GFR (Non-African American) 18.2; Magnesium 2.5 mg/dl (1.8-2.4); Potassium 5.1 mmol/L (3.5-5.1)
[2018-12-01 23:33] LABS: Albumin Globulin Ratio 0.8 (0.9-2); Bilirubin,Total 0.2 mg/dl (0.2-1); Globulin 3.9 gm/dl (2.5-4.0); Total Protein 7.2 gm/dl (6.4-8.2); Troponin I 14.1 ng/ml (0-0.045)
[2018-12-02] MEDS ORDERED: Heparin IV Standard *NO* Bolus IV ONE (00:42)
[2018-12-02] MEDS ORDERED: HEPARIN 25000 UNIT/500 ML D5W IV ONE (01:19)
--- NOTE | 2018-12-02 01:29 | History & Physical Report ---
Date of Service December 02, 2018 Assessment & Plan (1) Acute [place]: 83-year-old female with history of hypertension, hyperlipidemia, peripheral vascular disease, CKD 3, diabetes, CVA x2 with bilateral foot drop, ERNST on CPAP, spinal stenosis, right ICA stenosis presents with left arm and back pain x2 days. Concern for NSTEMI NSTEMI: L arm and back pain EK normal sinus rhythm QTc 452 T wave inversionV3, V4, V5, V6, II, III and aVF Chest x-ray: No acute abnormality On heparin drip Nitropaste Troponin 14.[address] Miranda contacted in the ED, advised to start heparin and will evaluate patient in the morning Diabetic stage II right foot ulcer Also has stage II decubitus pressure ulcer 11/30/2018 culture right foot growing staph species sensitivities pending MRI right foot ordered to rule out osteomyelitis -Per 11/30/2018 wound care note supposed to be scheduled Started on daptomycin given renal failure and cefepime Echo to rule out endocarditis CKD3, she does not appear to have an LEEANN BUN/creatinine 40/2.4 Previous lab in chart from outside facility in 06/25/2018 -47/2.9 GFR 18 Anemia -likely secondary to chronic kidney disease Hemoglobin 9.7 -Per outside lab was 9.3 in November 16, 2018 Continue to monitor Hypertension/hyperlipidemia Continue home metoprolol, atorvastatin Hold home Lasix and lisinopril CVA x2 with foot drop Continue home Plavix and atorvastatin Diabetes Glucose tonight 145 Continue home Lantus SSI Diabetic neuropathy/chronic pain/spinal stenosis Continue gabapentin and tramadol GERD Continue Protonix FEN/GI: On LR at 80, n.p.o. for possible procedure DVT prophylaxis: Heparin Disposition: PCU Code: DNR/DNI (2) Anemia: (3) Chronic kidney disease, stage 3: (4) Diabetic foot ulcer associated with type 2 diabetes mellitus: (5) Peripheral arterial disease: (6) Stage II pressure ulcer of buttock: (7) Stage II pressure ulcer of right heel: (8) CVA (cerebral vascular accident): (9) HTN (hypertension): (10) Hyperlipidemia: History of Present Illness Chief Complaint: Left arm and back pain Primary Care Provider: SEYMOUR Hoffman 83-year-old female with history of hypertension, hyperlipidemia, peripheral vascular disease, CKD 3, diabetes, CVA x2 with bilateral foot drop, ERNST on CPAP, spinal stenosis, right ICA stenosis presents with left arm and back pain x2 days. Reports left arm and back pain which started the night before. She had similar pain again tonight after dinner. She took some coke thinking it might be acid reflux but it did not help her burp. Pain is severe and left arm into hand and also involves her back between her shoulder blades. Pain resolved after receiving nitro in the ED. Associated with vomiting yesterday; diarrhea yesterday and today, loose brown and nonbloody; chills; lightheadedness. Denies any fever, chest pain, shortness of breath, headache, abdominal pain, dysuria, hematuria. No recent falls. Per wound care notes patient has stage II ulcer on right plantar foot and stage II decubitus pressure ulcer. Per wound care 11/30/2018 note wound culture was collected which is growing staph species sensi tivities pending, and patient was supposed to get MRI of right foot given worsening ulcer. Patient reports using boot and walker due to her foot drop as a result of her strokes. Allergies Allergy/AdvReac Type Severity Reaction Status Date / Time acetaminophen Allergy Unknown SWEATING Verified 12/01/18 22:36 amitriptyline Allergy Unknown BLURRED Verified 12/01/18 22:36 DOUBLE VISION Cipro Allergy Unknown itshiness,red Verified 06/25/16 17:42 streak ciprofloxacin Allergy Unknown itshiness,red Verified 12/01/18 22:36 streak gabapentin Allergy Unknown SHAKES,VISION Verified 12/01/18 22:36 CHANGES guaifenesin Allergy Unknown UNKNOWN Verified 12/01/18 22:36 latex Allergy Unknown SKIN GETS Verified 12/01/18 22:36 RAW-PT HAS NO RECOLLECTION meloxicam Allergy Unknown DIARRHEA Verified 12/01/18 22:36 metformin Allergy Unknown HOT FLASHES Verified 12/01/18 22:36 metronidazole Allergy Unknown UNKNOWN Verified 12/01/18 22:36 Penicillins Allergy Unknown INJECTION Verified 11/23/18 09:16 UNKNOWN pioglitazone Allergy Unknown SORE Verified 11/23/18 09:16 THROAT,EAts excessively pregabalin Allergy Unknown DIZZINESS, Verified 11/23/18 09:16 SLEEPY rofecoxib Allergy Unknown UNKNOWN Verified 11/23/18 09:16 rosuvastatin Allergy Unknown UNKNOWN Verified 11/23/18 09:16 simvastatin Allergy Unknown UNKNOWN Verified 11/11/18 10:30 Sulfa (Sulfonamide Allergy Unknown HIVES Verified 11/11/18 10:30 Antibiotics) tramadol Allergy Unknown SWEATING Verified 11/11/18 10:30 Tricyclic Antidepressants Allergy Unknown UNKNOWN Uncoded 11/11/18 10:30 Home Medications Home Medications Medication Instructions Recorded Confirmed Type atorvastatin 40 mg tablet 40 mg PO QAM tab 06/28/18 12/01/18 History clopidogrel 75 mg tablet 75 mg PO DAILY 06/28/18 12/01/18 History furosemide 20 mg tablet 20 mg PO BID 06/28/18 12/01/18 History insulin aspart (U-100) 100 unit/mL 4 - 6 units SQ TIDM ml 06/28/18 12/01/18 History (3 mL) subcutaneous pen insulin glargine (U- 100) 100 12 units SQ HS ml 06/28/18 12/01/18 History unit/mL subcutaneous solution metoprolol tartrate 75 mg tablet 75 mg PO BID 06/28/18 12/01/18 History tramadol 50 mg tablet 50 mg PO Q8H PRN 10/19/18 12/01/18 History blood sugar diagnostic strips #10 ea 11/05/18 12/01/18 History topiramate 25 mg tablet 25 mg PO DAILY #30 tab 11/05/18 12/01/18 History cholecalciferol (vitamin D3) 1,000 unit PO DAILY 12/01/18 12/01/18 History [Vitamin D3] gabapentin 100 mg PO DAILY 12/01/18 12/01/18 History lisinopril 10 mg PO DAILY 12/01/18 12/01/18 History pantoprazole [Protonix] 40 mg PO DAILY 12/01/18 12/01/18 History Past Med/Surg History Medical History Chronic kidney disease, stage 3 (Chronic) HTN (hypertension) (Chronic) Diabetes mellitus with diabetic polyneuropathy (Acute) Ulcer of right heel (Acute) Anxiety associated with depression (Chronic) Benign recurrent vertigo (Chronic) Bilateral foot-drop (Chronic) Blood clotting disorder (Chronic) Chronic GERD (Chronic) Diabetes mellitus type 2 with complications, uncontrolled (Chronic) Gastritis (Chronic) H/O diastolic dysfunction (Chronic) H/O: CVA (cerebrovascular accident) (Chronic) Hyperlipidemia (Chronic) Hypokalemia (Chronic) Memory loss (Chronic) Nephropathy (Chronic) Neurologic gait dysfunction (Chronic) Osteoarthritis (Chronic) Polyarthritis (Chronic) Resting tremor (Chronic) Right lumbar radiculopathy (Chronic) Sleep apnea (Chronic) Stenosis of right carotid artery (Chronic) Urinary frequency (Chronic) Vitamin D deficiency (Chronic) Weight disorder (Chronic) Cataract (Resolved) Cholecystectomy planned (Resolved) H/O: hysterectomy (Resolved) Surgical History Hx of tonsillectomy (Resolved) Family History Other No pertinent family history Social History Preferred Language: Bulgarian Communication Ability: Effective Visual Impairment: No Limitations Hearing Ability: Hard of Hearing Assistant Professor Of Spanish Required: No Beliefs That Will Affect Care: None marital status: Current Living Situation: Spouse current occupational status: retired Other Information That Helps Us Care for You: No Feels Safe at Home: Yes Safety Concerns: Feels Safe At This Time Smoking Status: Never smoker Do You Dip or Chew Tobacco: No ; Hx Alcohol Use: No Hx Substance Use: No Review of Systems Review of Systems: As per HPI Physical Exam Physical Exam: General: In NAD, hard of hearing, pleasant Neuro: A&O x 4 Pulm: CTAB equal breath sounds bilaterally CV: RRR, no m/r/g Abdomen:+BS, no TTP in all quadrants, non-distended LE: LLE - no LE edema, no calf TTP; RLE in boot Results & Data Vital Signs (Past 12 Hours) Vital Signs Temp Pulse Resp BP Pulse Ox 12/02/18 00:10 66 19 100 12/02/18 00:00 67 21 99 12/01/18 23:50 66 12 99 12/01/18 23:48 67 124/65 99 12/01/18 23:40 64 16 12/01/18 23:30 66 17 12/01/18 23:20 66 18 12/01/18 23:10 66 16 12/01/18 23:00 67 27 H 12/01/18 22:50 67 17 12/01/18 22:40 70 21 98 12/01/18 22:30 68 14 12/01/18 22:27 72 20 12/01/18 20:35 37.3 C 70 18 152/67 H 100 12/01/18 20:29 70 22 152/67 H Laboratory Results Abnormal lab results 12/01/18 12/01/18 Range/Units 22:54 22:54 RBC 3.14 L (4.2-5.4) M/uL Hgb 9.7 L (12.0-16.0) g/dL Hct 30.1 L (37-47) % RDW Std Deviation 50.0 H (36.4-46.3) fL Immature Gran # (Auto) 0.03 H (0.00-0.02) K/uL Neut # (Auto) 6.58 H (1.4-6.5) K/uL [place] # (Auto) 0.77 H (0.11-0.59) K/uL Chloride 110 H (98-107) mmol/L BUN 49 H (7-18) mg/dl Creatinine 2.40 H (0.6-1.2) mg/dl BUN/Creatinine Ratio 20.5 H (10-20) Glucose 145 H (70-99) mg/dl Calcium 8.4 L (8.5-10.1) mg/dl Magnesium 2.5 H (1.8-2.4) mg/dl AST 44 H (15-37) U/L Troponin I 14.100 H* (0-0.045) ng/ml Albumin 3.3 L (3.4-5.0) gm/dl Albumin/Globulin Ratio 0.8 L (0.9-2) Medications Administered Current Inpatient Medications Heparin Sodium/Dextrose (Heparin Sodium/Dextrose) 25,000 units in 500 mls @ 20 mls/hr IV .Q24H COUNT INCLUDES THE [facility]; Protocol Stop: 01/01/19 00:44 Code Status & VTE Plan Code Status DNR/DNI per discussion with patient VTE Prophylaxis Plan VTE Prophylaxis will be ordered: Yes Supervising Physician Co-Signing Physician Notes Attending addendum: I have physically seen this patient, have supervised the medical residents activities, and agree with the H&P unless as otherwise noted. Assessment and Plan: NSTEMI/elevated troponin 14.1- The patient will be admitted to telemetry for serial cardiac enzymes, serial EKG's, cardiac rhythm monitoring and a 2-D echocardiogram with Dopplers. Has had a total of aspirin 324 mg. Placed initially on Nitropaste 1 inch, will increase to 2 inches anterior chest wall every 6 hours. Heparin drip without bolus per protocol. Interventionalist Dr. Miranda aware. Diabetic foot ulcer, with staph aureus in outpatient culture- Consult wound care. MRI right foot to assess for possible osteomyelitis. Daptomycin IV and cefepime IV. Remainder of orders and medications as noted. PG Care Time/CCT Total # of Minutes Spent Total Time Spent with Patient: Total time spent is greater than 50% in coordination of care (as documented) at patient's floor/unit and/or counseling patient: Resident Activity Tracking Resident Involvement: Resident Care Provided Care Provided: Adult [facility] Medicine (1) Stage II pressure ulcer of buttock Laterality: left Qualified Code(s): L89.322 - Pressure ulcer of left buttock, stage 2 (2) Diabetic foot ulcer associated with type 2 diabetes mellitus Diabetic foot ulcer location: heel Laterality: right Non-pressure ulcer stage: with fat layer exposed Qualified Code(s): E11.621 - Type 2 diabetes mellitus with foot ulcer; L97.412 - Non-pressure chronic ulcer of right heel and midfoot with fat layer exposed (3) Acute [place] Involved coronary artery: unspecified coronary artery Myocardial infarction type: unspecified Qualified Code(s): I21.9 - Acute myocardial infarction, unspecified (4) Anemia Anemia type: unspecified type Qualified Code(s): D64.9 - Anemia, unspecified
[2018-12-02] MEDS: HEPARIN SODIUM/DEXTROSE 25,000 UNITS/500 ML BAG IV SCH (01:36)
--- NOTE | 2018-12-02 01:39 | Emergency Department Note ---
Entered by Dre Camarillo acting as a scribe for History of Present Illness General Chief complaint: Arm Pain Stated complaint: L ARM PAIN Time Seen by Provider: 12/01/18 22:28 Source: patient History of Present Illness Onset (ago): day(s) (last evening) Location: upper extremity (arm) and left Severity: severe Pain Consistency: + intermittent Maximum Pain Intensity: 10 Exacerbated By: + movement Associated symptoms: + chest pain and + other (sweating, back pain); no shortness of breath The patient is an 83 y/o female who presents to the ED w/ CC of intermittent, severe, left arm pain beginning last evening. The patient arrived via EMS. She was given 4mg of Zofran in route as well as 324mg of aspirin. The patient states her symptoms started last evening with left arm pain that radiated to her back. She reports she started sweating and experiencing nausea last night as well. The patient notes her symptoms lasted for an hour last night. She states her symptoms stopped and she went to sleep. The patient reports she was fine all day today until she had another similar episode this evening 4.5 hours ago with sweating and chest pain. She notes her symptoms started after she ate supper and sat down in a chair. The patient states her symptoms lasted for an hour and r esolved when the ambulance gave her the Zofran and aspirin. She reports she thought it was GERD because she normally drinks pop and burps, but tonight she was not able to burp. The patient notes she got up to use the restroom while in the ED, and her symptoms started again and lasted for 5 minutes. She states her episodes are a 10/10 in severity when she experiences them. The patient reports she noticed her symptoms seem to worsen with exertion and movement. She denies increased discomfort with rotation of her arm. Home Medications Home Medications Medication Instructions Recorded Confirmed Type atorvastatin 40 mg tablet 40 mg PO QAM tab 06/28/18 12/01/18 History clopidogrel 75 mg tablet 75 mg PO DAILY 06/28/18 12/01/18 History furosemide 20 mg tablet 20 mg PO BID 06/28/18 12/01/18 History insulin aspart (U-100) 100 unit/mL 4 - 6 units SQ TIDM ml 06/28/18 12/01/18 History (3 mL) subcutaneous pen insulin glargine (U- 100) 100 12 units SQ HS ml 06/28/18 12/01/18 History unit/mL subcutaneous solution metoprolol tartrate 75 mg tablet 75 mg PO BID 06/28/18 12/01/18 History tramadol 50 mg tablet 50 mg PO Q8H PRN 10/19/18 12/01/18 History blood sugar diagnostic strips #10 ea 11/05/18 12/01/18 History topiramate 25 mg tablet 25 mg PO DAILY #30 tab 11/05/18 12/01/18 History cholecalciferol (vitamin D3) 1,000 unit PO DAILY 12/01/18 12/01/18 History [Vitamin D3] gabapentin 100 mg PO DAILY 12/01/18 12/01/18 History lisinopril 10 mg PO DAILY 12/01/18 12/01/18 History pantoprazole [Protonix] 40 mg PO DAILY 12/01/18 12/01/18 History Allergies Allergy/AdvReac Type Severity Reaction Status Date / Time acetaminophen Allergy Unknown SWEATING Verified 12/01/18 22:36 amitriptyline Allergy Unknown BLURRED Verified 12/01/18 22:36 DOUBLE VISION Cipro Allergy Unknown itshiness,red Verified 06/25/16 17:42 streak ciprofloxacin Allergy Unknown itshiness,red Verified 12/01/18 22:36 streak gabapentin Allergy Unknown SHAKES,VISION Verified 12/01/18 22:36 CHANGES guaifenesin Allergy Unknown UNKNOWN Verified 12/01/18 22:36 latex Allergy Unknown SKIN GETS Verified 12/01/18 22:36 RAW-PT HAS NO RECOLLECTION meloxicam Allergy Unknown DIARRHEA Verified 12/01/18 22:36 metformin Allergy Unknown HOT FLASHES Verified 12/01/18 22:36 metronidazole Allergy Unknown UNKNOWN Verified 12/01/18 22:36 Penicillins Allergy Unknown INJECTION Verified 11/23/18 09:16 UNKNOWN pioglitazone Allergy Unknown SORE Verified 11/23/18 09:16 THROAT,EAts excessively pregabalin Allergy Unknown DIZZINESS, Verified 11/23/18 09:16 SLEEPY rofecoxib Allergy Unknown UNKNOWN Verified 11/23/18 09:16 rosuvastatin Allergy Unknown UNKNOWN Verified 11/23/18 09:16 simvastatin Allergy Unknown UNKNOWN Verified 11/11/18 10:30 Sulfa (Sulfonamide Allergy Unknown HIVES Verified 11/11/18 10:30 Antibiotics) tramadol Allergy Unknown SWEATING Verified 11/11/18 10:30 Tricyclic Antidepressants Allergy Unknown UNKNOWN Uncoded 11/11/18 10:30 Past Med/Surg History Medical History Chronic kidney disease, stage 3 (Chronic) HTN (hypertension) (Chronic) Diabetes mellitus with diabetic polyneuropathy (Acute) Ulcer of right heel (Acute) Anxiety associated with depression (Chronic) Benign recurrent vertigo (Chronic) Bilateral foot-drop (Chronic) Blood clotting disorder (Chronic) Chronic GERD (Chronic) Diabetes mellitus type 2 with complications, uncontrolled (Chronic) Gastritis (Chronic) H/O diastolic dysfunction (Chronic) H/O: CVA (cerebrovascular accident) (Chronic) Hyperlipidemia (Chronic) Hypokalemia (Chronic) Memory loss (Chronic) Nephropathy (Chronic) Neurologic gait dysfunction (Chronic) Osteoarthritis (Chronic) Polyarthritis (Chronic) Resting tremor (Chronic) Right lumbar radiculopathy (Chronic) Sleep apnea (Chronic) Stenosis of right carotid artery (Chronic) Urinary frequency (Chronic) Vitamin D deficiency (Chronic) Weight disorder (Chronic) Cataract (Resolved) Cholecystectomy planned (Resolved) H/O: hysterectomy (Resolved) Surgical History Hx of tonsillectomy (Resolved) Family History Other No pertinent family history Social History Preferred Language: [place] Communication Ability: Effective Visual Impairment: No Limitations Hearing Ability: Hard of Hearing Ceramic Coater Required: No Beliefs That Will Affect Care: None marital status: Current Living Situation: Spouse current occupational status: retired Other Information That Helps Us Care for You: No Feels Safe at Home: Yes Safety Concerns: Feels Safe At This Time Smoking Status: Never smoker Do You Dip or Chew Tobacco: No ; Hx Alcohol Use: No Hx Substance Use: No Review of Systems See HPI for pertinent positives & negatives. and A total of 10 systems reviewed and were otherwise negative Physical Exam Vital Signs Vital Signs - 24 hr 12/01/18 20:29 12/01/18 20:35 12/01/18 22:27 Temperature 37.3 C Temperature Source Oral Sepsis Recent Fever Within 48 Hours No Sepsis New/Unexplained Change in Mental Status No Sepsis Action Taken by Nursing No Action Required Pulse Rate 70 70 72 Pulse Rate from SpO2 Sensor Respiratory Rate 22 18 20 Respiratory Effort / Characteristics Non-Labored Spontaneous Respiratory Depth Normal Respiratory Pattern Regular Blood Pressure 152/67 H 152/67 H Blood Pressure Mean 95 95 Blood Pressure Position Lying Pulse Oximetry 100 Oxygen Delivery Method Room Air 12/01/18 22:30 12/01/18 22:40 12/01/18 22:50 Temperature Temperature Source Sepsis Recent Fever Within 48 Hours Sepsis New/Unexplained Change in Mental Status Sepsis Action Taken by Nursing Pulse Rate 68 70 67 Pulse Rate from SpO2 Sensor Respiratory Rate 14 21 17 Respiratory Effort / Characteristics Respiratory Depth Respiratory Pattern Blood Pressure Blood Pressure Mean Blood Pressure Position Pulse Oximetry 98 Oxygen Delivery Method Room Air 12/01/18 23:00 12/01/18 23:10 12/01/18 23:20 Temperature Temperature Source Sepsis Recent Fever Within 48 Hours Sepsis New/Unexplained Change in Mental Status Sepsis Action Taken by Nursing Pulse Rate 67 66 66 Pulse Rate from SpO2 Sensor Respiratory Rate 27 H 16 18 Respiratory Effort / Characteristics Respiratory Depth Respiratory Pattern Blood Pressure Blood Pressure Mean Blood Pressure Position Pulse Oximetry Oxygen Delivery Method 12/01/18 23:30 12/01/18 23:40 12/01/18 23:48 Temperature Temperature Source Sepsis Recent Fever Within 48 Hours Sepsis New/Unexplained Change in Mental Status Sepsis Action Taken by Nursing Pulse Rate 66 64 67 Pulse Rate from SpO2 Sensor 67 Respiratory Rate 17 16 Respiratory Effort / Characteristics Respiratory Depth Respiratory Pattern Blood Pressure 124/65 Blood Pressure Mean 84 Blood Pressure Position Pulse Oximetry 99 Oxygen Delivery Method 12/01/18 23:50 12/02/18 00:00 12/02/18 00:10 Temperature Temperature Source Sepsis Recent Fever Within 48 Hours Sepsis New/Unexplained Change in Mental Status Sepsis Action Taken by Nursing Pulse Rate 66 67 66 Pulse Rate from SpO2 Sensor 66 67 66 Respiratory Rate 12 21 19 Respiratory Effort / Characteristics Respiratory Depth Respiratory Pattern Blood Pressure Blood Pressure Mean Blood Pressure Position Pulse Oximetry 99 99 100 Oxygen Delivery Method 12/02/18 00:20 12/02/18 00:30 12/02/18 00:40 Temperature Temperature Source Sepsis Recent Fever Within 48 Hours Sepsis New/Unexplained Change in Mental Status Sepsis Action Taken by Nursing Pulse Rate 66 68 63 Pulse Rate from SpO2 Sensor 67 66 64 Respiratory Rate 17 16 18 Respiratory Effort / Characteristics Respiratory Depth Respiratory Pattern Blood Pressure Blood Pressure Mean Blood Pressure Position Pulse Oximetry 99 97 93 Oxygen Delivery Method 12/02/18 00:50 12/02/18 01:00 12/02/18 01:10 Temperature Temperature Source Sepsis Recent Fever Within 48 Hours Sepsis New/Unexplained Change in Mental Status Sepsis Action Taken by Nursing Pulse Rate 67 66 64 Pulse Rate from SpO2 Sensor 67 65 65 Respiratory Rate 22 19 16 Respiratory Effort / Characteristics Respiratory Depth Respiratory Pattern Blood Pressure Blood Pressure Mean Blood Pressure Position Pulse Oximetry 100 100 98 Oxygen Delivery Method GENERAL: Patient is in no acute distress. HEENT: No acute trauma, normocephalic atraumatic, mucous membranes moist, no nasal congestion, no scleral icterus. NECK: No stridor, no adenopathy, no meningismus, trachea is midline. LUNGS: Clear to auscultation bilaterally, no wheeze, no rhonchi, breath sounds equal. HEART: Without murmurs gallops or rubs, regular rate and rhythm. CHEST: Non-tender chest wall. ABDOMEN: Soft, nontender, bowel sounds positive, no hernias, no peritonitis. RECTAL (in the presence of a female nurse): Brown stool. Heme negative. EXTREMITIES: No cyanosis or edema, no signs for acute trauma. Braces on both lower extremities. NEUROLOGIC: Oriented x 3, no acute motor or sensory deficits, no focal weakness. SKIN: No rash, no jaundice, no diaphoresis. Course 2232: Past medical records reviewed. The patient was evaluated in room A04B. A complete history and physical exam was performed. 2334: I reevaluated the patient. I reviewed her lab results with her and her . I informed her of the need to do a rectal examination. 2342: I discussed the patient's case with Dr. Miranda, Cardiology. He recommended medical management for now unless she has recurrent pain. 0006: Upon reevaluation, the patient is resting comfortably. I performed a rectal examination in the presence of a female nurse. I discussed laboratory and radiographic results with her and her . The patient verbalized agreement of the treatment plan. The patient will be evaluated for further management and care. 0026: Discussed the patient's case with Dr. Ramsay, [facility] Hospitalist. The patient will be evaluated for further management. Administered Medications Clopidogrel Bisulfate (Plavix) 75 mg PO DAILY [facility] Stop: 01/01/19 08:59 Last Admin: 12/02/18 08:12 Dose: 75 mg Documented by: [id number] Gabapentin (Neurontin) 100 mg PO DAILY [facility] Stop: 01/01/19 08:59 Last Admin: 12/02/18 08:12 Dose: 100 mg Documented by: [id number] Heparin Sodium/Dextrose (Heparin Sodium/Dextrose) 25,000 units in 500 mls @ 0 mls/hr IV .Q0M [facility]; Protocol Stop: 01/01/19 00:44 Last Titration: 12/02/18 10:14 Dose: 0 units/hr, 0 mls/hr Documented by: [id number] Cosigned by: [id number] Titration: 12/02/18 07:18 Dose: 1,000 units/hr, 20 mls/hr Documented by: [id number] Cosigned by: [id number] Admin: 12/02/18 01:36 Dose: 1,000 units/hr, 20 mls/hr Documented by: [id number] Cosigned by: [id number] Lactated Ringer's (Lr) 1,000 mls @ 80 mls/hr IV .[id number] [facility] Stop: 01/01/19 02:34 Last Admin: 12/02/18 02:59 Dose: 80 mls/hr Documented by: [id number] Insulin Aspart (Novolog Flexpen) 1 units SC Q6H [facility] Stop: 01/01/19 05:59 Last Admin: 12/02/18 05:53 Dose: Not Given Documented by: [id number] Cosigned by: [id number] Metoprolol Tartrate (Lopressor) 75 mg PO BID [facility] Stop: 01/01/19 08:59 Last Admin: 12/02/18 08:12 Dose: 75 mg Documented by: [id number] Nitroglycerin (Nitro-Bid 2%) 1 inch EXT Q6 [facility] Stop: 01/01/19 05:59 Last Admin: 12/02/18 05:53 Dose: 1 inch Documented by: [id number] Pantoprazole Sodium (Protonix) 40 mg PO DAILY [facility] Stop: 01/01/19 08:59 Last Admin: 12/02/18 08:12 Dose: 40 mg Documented by: [id number] Topiramate (Topamax) 25 mg PO DAILY [facility] Stop: 01/01/19 08:59 Last Admin: 12/02/18 08:12 Dose: 25 mg Documented by: [id number] Vitamin D (Vitamin D3) 1,000 units PO DAILY [facility] Stop: 01/01/19 08:59 Last Admin: 12/02/18 09:48 Dose: Not Given Documented by: [id number] Discontinued Medications Fentanyl Citrate (Fentanyl Citrate) Confirm Administered Dose 100 mcg .ROUTE .STK-MED ONE Stop: 12/02/18 10:25 Last Admin: 12/02/18 12:37 Dose: Not Given Documented by: [id number] Heparin Sodium (Porcine) (Heparin Iv Bolus (Mixed Livestock Farmer Use Only)) Confirm Administered Dose 10,000 units .ROUTE .STK-MED ONE Stop: 12/02/18 10:25 Last Admin: 12/02/18 12:37 Dose: Not Given Documented by: [id number] Heparin Sodium/Dextrose () 1 ea IV ONE ONE; Protocol Stop: 12/02/18 00:43 Last Admin: 12/02/18 01:36 Dose: Not Given Documented by: [id number] Heparin Sodium/Dextrose (Heparin Sodium/Dextrose) Confirm Administered Dose 25,000 units IV .STK-MED ONE Stop: 12/02/18 01:20 Last Admin: 12/02/18 01:36 Dose: Not Given Documented by: [id number] Heparin Sodium/Sodium Chloride (Heparin/Nss 1000 Unit/500ml Flush Bag) Confirm Administered Dose 3,000 units IV .STK-MED ONE Stop: 12/02/18 10:26 Last Admin: 12/02/18 12:37 Dose: Not Given Documented by: [id number] Sodium Chloride (Nss) 500 mls @ 999 mls/hr IV .Q31M [facility] Stop: 12/01/18 23:15 Last Infusion: 12/02/18 00:18 Dose: 0 mls/hr Documented by: [id number] Admin: 12/01/18 22:57 Dose: 999 mls/hr Documented by: [id number] Cefepime HCl 2,000 mg/ Syringe 20 mls @ 5.5 mls/min IV TODAY@0545 [facility]; Protocol Stop: 12/02/18 05:49 Last Admin: 12/02/18 05:41 Dose: 5.5 mls/min Documented by: [id number] Daptomycin 300 mg/ Syringe 6 mls @ 0 mls/min IV TODAY@0600 [facility]; Protocol Stop: 12/02/18 06:01 Last Admin: 12/02/18 05:41 Dose: 6 mls/min Documented by: [id number] Midazolam HCl (Versed) Confirm Administered Dose 2 mg .ROUTE .STK-MED ONE Stop: 12/02/18 10:25 Last Admin: 12/02/18 12:37 Dose: Not Given Documented by: [id number] Morphine Sulfate (Morphine Sulfate) 2 mg IV NOW STA Stop: 12/02/18 06:39 Last Admin: 12/02/18 06:41 Dose: 2 mg Documented by: [id number] Morphine Sulfate (Morphine Sulfate) Confirm Administered Dose 2 mg .ROUTE .STK- MED ONE Stop: 12/02/18 06:41 Last Admin: 12/02/18 06:42 Dose: Not Given Documented by: [id number] Nicardipine HCl (Cardene) Confirm Administered Dose 25 mg .ROUTE .STK-MED ONE Stop: 12/02/18 10:25 Last Admin: 12/02/18 12:37 Dose: Not Given Documented by: [id number] Nitroglycerin (Nitro-Bid 2%) 1 inch EXT NOW STA Stop: 12/01/18 22:40 Last Admin: 12/01/18 22:54 Dose: 1 inch Documented by: [id number] Nitroglycerin (Nitro-Bid 2%) 1 inch EXT 0700 ONE Stop: 12/02/18 07:01 Last Admin: 12/02/18 07:09 Dose: 1 inch Documented by: [id number] Nitroglycerin/Dextrose (Nitroglycerin/D5w 100 Mcg/Ml 20ml Syringe) Confirm Administered Dose 2,000 mcg .ROUTE .STK-MED ONE Stop: 12/02/18 10:25 Last Admin: 12/02/18 12:37 Dose: Not Given Documented by: [id number] Medical Decision Making Differential Diagnosis Differential diagnosis includes: MA, angina, electrolyte imbalance, anemia, aortic dissection, PE. Medical Records Attestation: I reviewed the patient's medical records. Home Medications Current Medication List: was personally reviewed by me Laboratory Data Attestation: I reviewed the patient's lab results. Result diagrams: 12/01/18 22:54 12/02/18 05:38 Lab Results 12/01/18 12/01/18 12/01/18 Range/Units 22:54 22:54 22:54 WBC 10.12 (4.8-10.8) K/uL RBC 3.14 L (4.2-5.4) M/uL Hgb 9.7 L (12.0-16.0) g/dL Hct 30.1 L (37-47) % MCV 95.9 (80-100) fL MCH 30.9 (25-34) pg MCHC 32.2 (32-36) g/dL RDW Std Deviation 50.0 H (36.4-46.3) fL RDW Coeff of Ciera 14.3 (11.5-14.5) % Plt Count 339 (130-400) K/uL MPV 9.8 (7.4-10.4) fL Immature Gran % (Auto) 0.3 % Neut % (Auto) 65.0 % Lymph % (Auto) 24.5 % [place] % (Auto) 7.6 % Eos % (Auto) 2.0 % Baso % (Auto) 0.6 % Immature Gran # (Auto) 0.03 H (0.00-0.02) K/uL Neut # (Auto) 6.58 H (1.4-6.5) K/uL Lymph # (Auto) 2.48 (1.2-3.4) K/uL [place] # (Auto) 0.77 H (0.11-0.59) K/uL Eos # (Auto) 0.20 (0-0.5) K/uL Baso # (Auto) 0.06 (0-0.2) K/uL PT 9.7 (9.0-12.0) Seconds INR 0.9 (0.9-1.1) APTT 26.1 (21.0-31.0) Seconds PTT Ratio 1.0 Sodium 138 (136-145) mmol/L Potassium 5.1 (3.5-5.1) mmol/L Chloride 110 H (98-107) mmol/L Carbon Dioxide 22 (21-32) mmol/L Anion Gap 6.0 (3-11) BUN 49 H (7-18) mg/dl Creatinine 2.40 H (0.6-1.2) mg/dl Est Cr Clr Drug Dosing 15.9 ml/min Est GFR ( Amer) 21.1 Est GFR (Non-Af Amer) 18.2 BUN/Creatinine Ratio 20.5 H (10-20) Glucose 145 H (70-99) mg/dl Calcium 8.4 L (8.5-10.1) mg/dl Magnesium 2.5 H (1.8-2.4) mg/dl Total Bilirubin 0.2 (0.2-1) mg/dl AST 44 H (15-37) U/L ALT 14 (12-78) U/L Alkaline Phosphatase 113 (45-117) U/L Troponin I 14.100 H* (0-0.045) ng/ml Total Protein 7.2 (6.4-8.2) gm/dl Albumin 3.3 L (3.4-5.0) gm/dl Globulin 3.9 (2.5-4.0) gm/dl Albumin/Globulin Ratio 0.8 L (0.9-2) Lipase 151 (73-393) U/L Imaging Data Attestation: I personally reviewed and interpreted this imaging study as follows: My Impression: XR chest 1v portable: no CHF, no pneumonia, no pneumothorax. ECG Data Attestation: I personally reviewed and interpreted this ECG as follows: Indication: chest pain Rate (beats per minute): 64 Rhythm: normal sinus Findings: + T-wave inversion (Inferior and lateral leads) and + ST elevation (Anterior - subtle) Comparison ECG Date: from (06/27/16) Change: the following changes noted (T-wave inversions are all new) Additional Comments: SECOND EKG IN THE SAME ED VISIT: Normal sinus rhythm with a rate of 71. Subtle ST elevation in the anterior leads. T-wave inversions in the inferior and lateral leads. No change when compared to today's earlier ECG. Blood Pressure Blood Pressure Findings: Elevated blood pressure Blood Pressure Disposition: further management by hospitalist [facility] Narrative There is no leukocytosis. The patient is anemic with a hemoglobin of 9.7. I did perform a rectal exam, stool was brown and heme-negative. There was no coagulopathy. There was some renal insufficiency/renal injury with a creatinine of 2.4. No concerning liver enzyme elevation. No evidence for pancreatitis. EKG shows a sinus rhythm with some subtle ST elevation in the anterior leads and T wave inversion in the inferior and lateral leads. These ST changes were all new compared to previous EKGs. Troponin did return elevated at around 14. Chest film did not show any mediastinal widening, pneumonia or CHF. The patient presents with intermittent left arm/chest discomfort. She is currently chest pain-free. Her most severe episode of pain was last evening. She does have findings consistent with a recent MA. I did speak with the hydraulic press servicer on-call for heart alert. There was no need for emergent coronary intervention. Medical management was advised. I did speak with the patient, I talked with case management. The on-call hospitalist has been consulted. Of note, the patient did not receive any additional aspirin as she had received aspirin prior to arrival. She was placed on 1 inch of Nitropaste, she was given a 500 cc saline bolus. Anticoagulation to be initiated by the admitting physician. Impression & Plan Acute MA, Anemia, Acute kidney injury Critical Care Time Critical Care Time: Yes Total Critical Care Time: 36 I have personally spent 36 minutes of critical care time in the direct management of this patient. This includes bedside care, interpretation of diagnostic studies, and testing, discussion with consultants, patient, and family members, and other required patient management activities. This 36 jose susy is in excess of all separately billable procedures. Discharge Plan Visit Data *Final* Discharge Date/Time: 12/02/18 01:55 Chief Complaint: Arm Pain Stated Complaint: L ARM PAIN ED Provider: David Tony Discharge Problem: Acute MA, Anemia, Acute kidney injury Patient Disposition: Admitted As Inpatient Discharge Instructions Interventions: ED Discharge Assessment Last Done: 12/02/18 01:55 Discharge Problem: Acute MA Qualifiers: Myocardial infarction type: unspecified Involved coronary artery: unspecified coronary artery Qualified Code(s): I21.9 - Acute myocardial infarction, unspecified Anemia Qualifiers: Anemia type: unspecified type Qualified Code(s): D64.9 - Anemia, unspecified The scribe's documentation has been prepared under my direction and personally reviewed by me in its entirety. I confirm that the note above accurately refle cts all work, treatment, procedures, and medical decision making performed by me.
[2018-12-02] MEDS ORDERED: TRAMADOL HCL 50 MG TABLET PO PRN (02:35)
[2018-12-02] MEDS ORDERED: LACTATED RINGER'S 1,000 ML IV SCH (02:35)
[2018-12-02] MEDS ORDERED: DAPTOMYCIN IV SCH (02:35)
[2018-12-02] MEDS ORDERED: ONDANSETRON INJ 2 MG/ML 2 ML VIAL IV PRN (02:35)
[2018-12-02] MEDS ORDERED: GLUCOSE 10 TABS/TUBE PO PRN (03:00)
[2018-12-02] MEDS ORDERED: CARBOHYDRATES FOR HYPOGLYCEMIA PO PRN (03:00)
[2018-12-02] MEDS ORDERED: DEXTROSE 50% 50 ML SYRINGE IV PRN (03:00)
[2018-12-02] MEDS ORDERED: CEFEPIME 2,000 MG in SYRINGE 7.5 ML IV SCH ×2 (03:00→05:45)
[2018-12-02] MEDS ORDERED: GLUCOSE 40% GEL 15 GM TUBE PO PRN (03:00)
[2018-12-02] MEDS ORDERED: GLUCAGON FOR INJ 1 MG VIAL SQ PRN (03:00)
[2018-12-02] MEDS ORDERED: DAPTOMYCIN CONSULT ACTIVE PRN (03:25)
[2018-12-02] MEDS ORDERED: CEFEPIME CONSULT ACTIVE PRN (03:25)
[2018-12-02] MEDS ORDERED: DAPTOmycin 300 MG in SYRINGE 0 ML IV SCH ×2 (04:00→06:00)
[2018-12-02] MEDS: NITROGLYCERIN 2% OINTMENT 30GM TUBE EXT SCH ×3 (05:53→17:07)
[2018-12-02] MEDS: INSULIN ASPART 100 UNITS/ML 3 ML PEN SC SCH ×3 (05:53→17:07)
[2018-12-02 06:32] LABS: BUN Creatinine Ratio 22.5 (10-20); Calcium 8.1 mg/dl (8.5-10.1); Creatinine Clr Calc Pharmacy 19.4 ml/min; Est GFR (African American) 25.8; Est GFR (Non-African American) 22.3; Potassium 4.9 mmol/L (3.5-5.1)
[2018-12-02] MEDS ORDERED: MoRPHine SULFATE 2 MG/ML CARP IV STA (06:38)
[2018-12-02] MEDS ORDERED: MoRPHine SULFATE 2 MG/ML CARP ONE (06:40)
[2018-12-02] MEDS ORDERED: NITROGLYCERIN 2% OINTMENT 30GM TUBE EXT ONE (07:00)
[2018-12-02 07:03] LABS: Estimated Average Glucose 137 mg/dl; Hemoglobin A1C 6.4 % (4.5-5.6)
--- NOTE | 2018-12-02 07:30 | XRay Report ---
XR chest 1V portable HISTORY: Atypical Chest Pain COMPARISON: Chest 04/20/2018. FINDINGS: A few small left basilar linear densities favor subsegmental atelectasis. The lungs are oth erwise clear. The heart is normal in size. No pleural effusions. No pneumothorax. IMPRESSION: No acute process. Electronically signed by: Chavez Lozada M.D. 12/02/2018 7:29 AM
[2018-12-02] MEDS: TOPIRAMATE 25 MG TAB PO SCH (08:12)
[2018-12-02] MEDS: PANTOprazole 40 MG TAB PO SCH (08:12)
[2018-12-02] MEDS: GABAPENTIN 100 MG CAP PO SCH (08:12)
[2018-12-02] MEDS: METOPROLOL TARTRATE 25 MG TAB PO SCH ×2 (08:12→21:08)
[2018-12-02] MEDS: CLOPIDOGREL BISULFATE 75 MG TAB PO SCH (08:12)
--- NOTE | 2018-12-02 08:13 | Magnetic Resonance Report ---
MR foot RT w/o con HISTORY: Right heel ulcer. concern for R foot osteomyelitis TECHNIQUE: Multiplanar multisequence MRI the right hindfoot was performed without contrast. COMPARISON STUDY: Right foot radiograph 11/02/2018. FINDINGS: There is subcutaneous edema within the ankle and hindfoot. There is a 2.7 cm skin ulceratio n along the plantar/medial aspect of the heel. There is soft tissue edema deep to the skin ulceration which abuts the cortex of the calcaneus. There may be a developing loculated fluid collection within the deep soft tissues abutting the calcaneus measuring 1.3 cm. This could represent phlegmon/develop ing abscess. Small focus of marrow edema which measures 1 cm within the posterior medial calcaneus de ep to the skin ulceration best seen on coronal image 28. However, there is no abnormal T1 signal or d efinite cortical obstruction at this location to suggest an osteomyelitis. Therefore, this favors an osteitis at this time. No additional areas of abnormal marrow signal seen within the hindfoot. No fra cture or dislocation. IMPRESSION: 1. A 2.7 cm focal skin ulceration along the plantar/medial aspect of the heel. 2. Deep to the skin ulceration there is a partially loculated fluid collection which abuts the cortex of the calcaneus and measures approximately 1.3 cm. This may represent a developing abscess/phlegmon . 3. A 1 cm focus of marrow edema within the plantar medial aspect of the calcaneus deep to the skin ul ceration without corresponding T1 signal abnormality. Therefore, this favors an osteitis at this time . No cortical destruction to confirm the presence of osteomyelitis. Electronically signed by: Chavez Lozada M.D. 12/02/2018 8:12 AM
[2018-12-02 08:18] LABS: Partial Thromboplastin Ratio 1.5
[2018-12-02] MEDS: CHOLECALCIFEROL 1,000 UNITS TAB PO SCH (09:48)
[2018-12-02] MEDS ORDERED: NITROGLYCERIN/D5W 100MCG/ML 20ML SYR ONE (10:24)
[2018-12-02] MEDS ORDERED: NiCARDipine HCL INJ 2.5 MG/ML 10 ML AMP ONE (10:24)
[2018-12-02] MEDS ORDERED: fentaNYL citrate 100 MCG/2 ML VIAL ONE (10:24)
[2018-12-02] MEDS ORDERED: HEPARIN (PORCINE) 1000 UNIT/ML 10 ML (CATH LAB USE ONLY) ONE (10:24)
[2018-12-02] MEDS ORDERED: MIDAZOLAM HCL 1 MG/ML 2ML VIAL ONE (10:24)
--- NOTE | 2018-12-02 10:42 | Cardiology Consultation ---
Date of Consultation December 02, 2018 Assessment & Plan (1) NSTEMI (non-ST elevated myocardial infarction): 2. Acute on chronic renal insufficiency 3. New LV dysfunction with apical wall motion normality 4. Anemia 5. Rheumatoid arthritis 6. Peripheral arterial disease 7. Prior CVA 8. Active right heel ulceration 9. Insulin-dependent diabetes Patient here with stuttering chest pain in the setting of elevated troponin, EKG changes and new wall motion abnormality. Presentation consistent with high risk NSTEMI. We discussed options for further risk stratification. Patient elevated risk to undergo cardiac catheterization in the setting of her acute on chronic renal insufficiency, anemia and general frailty but the setting of ongoing stuttering chest pain feel should proceed with cardiac catheterization. Discussed risks, benefits, alternatives with patient and her . They are willing to proceed. Plan to perform via right radial artery. Further conditions pending findings. Thank you for allowing us to participate in the care of this patient. Please contact with any questions. History of Present Illness Attending Physician: Chadwick Jefferson MD History of Present Illness Mrs. Jay is 83-year-old woman admitted with intermittent chest pain found to have an NSTEMI. Cardiology consult for further management. 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 Patient also dealing with an acute right heel ulceration being followed by the wound clinic. On Thursday, 2 days ago patient was at rest when developed chest pressure radiating down her left arm with associated diaphoresis. Pain lasted for more than an hour and did not respond to treatment for reflux. Was able to sleep Thursday night but then had intermittent episodes of chest pain throughout the day on Thursday with a severe episode Thursday night prompting presentation to [facility]. On arrival hemodynamically stable. Initial troponin elevated at 14 and is subsequently trended down to 10. EKG showed subtle anterior ST elevations with T wave inversions. Patient initially chest pain-free but this morning again had another episode of chest pain slightly different this time with pain starting in her throat area. Underwent echocardiogram this morning which showed new apical wall motion abnormality. Allergies Allergy/AdvReac Type Severity Reaction Status Date / Time acetaminophen Allergy Unknown SWEATING Verified 12/01/18 22:36 amitriptyline Allergy Unknown BLURRED Verified 12/01/18 22:36 DOUBLE VISION Cipro Allergy Unknown itshiness,red Verified 06/25/16 17:42 streak ciprofloxacin Allergy Unknown itshiness,red Verified 12/01/18 22:36 streak gabapentin Allergy Unknown SHAKES,VISION Verified 12/01/18 22:36 CHANGES guaifenesin Allergy Unknown UNKNOWN Verified 12/01/18 22:36 latex Allergy Unknown SKIN GETS Verified 12/01/18 22:36 RAW-PT HAS NO RECOLLECTION meloxicam Allergy Unknown DIARRHEA Verified 12/01/18 22:36 metformin Allergy Unknown HOT FLASHES Verified 12/01/18 22:36 metronidazole Allergy Unknown UNKNOWN Verified 12/01/18 22:36 Penicillins Allergy Unknown INJECTION Verified 11/23/18 09:16 UNKNOWN pioglitazone Allergy Unknown SORE Verified 11/23/18 09:16 THROAT,EAts excessively pregabalin Allergy Unknown DIZZINESS, Verified 11/23/18 09:16 SLEEPY rofecoxib Allergy Unknown UNKNOWN Verified 11/23/18 09:16 rosuvastatin Allergy Unknown UNKNOWN Verified 11/23/18 09:16 simvastatin Allergy Unknown UNKNOWN Verified 11/11/18 10:30 Sulfa (Sulfonamide Allergy Unknown HIVES Verified 11/11/18 10:30 Antibiotics) tramadol Allergy Unknown SWEATING Verified 11/11/18 10:30 Tricyclic Antidepressants Allergy Unknown UNKNOWN Uncoded 11/11/18 10:30 Home Medications Home Medications Medication Instructions Recorded Confirmed Type atorvastatin 40 mg tablet 40 mg PO QAM tab 06/28/18 12/01/18 History clopidogrel 75 mg tablet 75 mg PO DAILY 06/28/18 12/01/18 History furosemide 20 mg tablet 20 mg PO BID 06/28/18 12/01/18 History insulin aspart (U-100) 100 unit/mL 4 - 6 units SQ TIDM ml 06/28/18 12/01/18 History (3 mL) subcutaneous pen insulin glargine (U- 100) 100 12 units SQ HS ml 06/28/18 12/01/18 History unit/mL subcutaneous solution metoprolol tartrate 75 mg tablet 75 mg PO BID 06/28/18 12/01/18 History tramadol 50 mg tablet 50 mg PO Q8H PRN 10/19/18 12/01/18 History blood sugar diagnostic strips #10 ea 11/05/18 12/01/18 History topiramate 25 mg tablet 25 mg PO DAILY #30 tab 11/05/18 12/01/18 History cholecalciferol (vitamin D3) 1,000 unit PO DAILY 12/01/18 12/01/18 History [Vitamin D3] gabapentin 100 mg PO DAILY 12/01/18 12/01/18 History lisinopril 10 mg PO DAILY 12/01/18 12/01/18 History pantoprazole [Protonix] 40 mg PO DAILY 12/01/18 12/01/18 History Patient History Medical History Chronic kidney disease, stage 3 (Chronic) HTN (hypertension) (Chronic) Diabetes mellitus with diabetic polyneuropathy (Acute) Ulcer of right heel (Acute) Anxiety associated with depression (Chronic) Benign recurrent vertigo (Chronic) Bilateral foot-drop (Chronic) Blood clotting disorder (Chronic) Chronic GERD (Chronic) Diabetes mellitus type 2 with complications, uncontrolled (Chronic) Gastritis (Chronic) H/O diastolic dysfunction (Chronic) H/O: CVA (cerebrovascular accident) (Chronic) Hyperlipidemia (Chronic) Hypokalemia (Chronic) Memory loss (Chronic) Nephropathy (Chronic) Neurologic gait dysfunction (Chronic) Osteoarthritis (Chronic) Polyarthritis (Chronic) Resting tremor (Chronic) Right lumbar radiculopathy (Chronic) Sleep apnea (Chronic) Stenosis of right carotid artery (Chronic) Urinary frequency (Chronic) Vitamin D deficiency (Chronic) Weight disorder (Chronic) Cataract (Resolved) Cholecystectomy planned (Resolved) H/O: hysterectomy (Resolved) Surgical History Hx of tonsillectomy (Resolved) Family History Other No pertinent family history Social History Preferred Language: [place] Communication Ability: Effective Visual Impairment: No Limitations Hearing Ability: Hard of Hearing 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 Required: No Beliefs That Will Affect Care: None marital status: Current Living Situation: Spouse current occupational status: retired Other Information That Helps Us Care for You: No Feels Safe at Home: Yes Safety Concerns: Feels Safe At This Time Smoking Status: Never smoker Do You Dip or Chew Tobacco: No ; Hx Alcohol Use: No Hx Substance Use: No Review of Systems Review of Systems: All systems reviewed & are unremarkable except as noted in HPI & below Physical Exam Physical Exam: General: Comfortable, no acute distress, elderly, frail Eyes: Sclerae anicteric, extraocular movements intact HENT: Oropharynx clear mucous membranes moist Neck: Normal carotid upstrokes, no bruits. No JVD. Lungs: Clear to auscultation bilaterally, no rhonchi or wheezes Cardiac: Regular rate and rhythm, no murmurs Vascular: 2+ radial Abdomen: Soft, nontender, nondistended, positive bowel sounds. Extremities: Well perfused, right foot and offloading boot, palpable popliteal pulse. Hands with rheumatoid arthritis contractures Neuro: Residual left-sided weakness Psych: Alert orient x3, normal affect and mood Results & Data Vital Signs (Past 12 Hours) Vital Signs Temp Pulse Pulse Resp BP BP Pulse Ox 12/02/18 08:27 97.7 F 68 18 150/72 H 100 12/02/18 08:00 63 12/02/18 05:37 98.1 F 65 18 127/63 99 12/02/18 02:41 97.9 F 67 16 147/66 H 100 12/02/18 02:35 12/02/18 01:30 63 13 99 12/02/18 01:20 66 23 87 L 12/02/18 01:10 64 16 98 12/02/18 01:00 66 19 100 12/02/18 00:50 67 22 100 12/02/18 00:40 63 18 93 12/02/18 00:30 68 16 97 12/02/18 00:20 66 17 99 12/02/18 00:10 66 19 100 12/02/18 00:00 67 21 99 12/01/18 23:50 66 12 99 12/01/18 23:48 67 124/65 99 12/01/18 23:40 64 16 12/01/18 23:30 66 17 12/01/18 23:20 66 18 12/01/18 23:10 66 16 12/01/18 23:00 67 27 H 12/01/18 22:50 67 17 12/01/18 22:40 70 21 98 Pulse Ox 12/02/18 08:27 12/02/18 08:00 12/02/18 05:37 12/02/18 02:41 12/02/18 02:35 100 12/02/18 01:30 12/02/18 01:20 12/02/18 01:10 12/02/18 01:00 12/02/18 00:50 12/02/18 00:40 12/02/18 00:30 12/02/18 00:20 12/02/18 00:10 12/02/18 00:00 12/01/18 23:50 12/01/18 23:48 12/01/18 23:40 12/01/18 23:30 12/01/18 23:20 12/01/18 23:10 12/01/18 23:00 12/01/18 22:50 12/01/18 22:40 PG Care Time/CCT Total # of Minutes Spent Total Time Spent with Patient: Total time spent is greater than 50% in coordination of care (as documented) at patient's floor/unit and/or counseling patient:
--- NOTE | 2018-12-02 10:43 | Pre Anesthesia Assessment ---
Date of Service December 02, 2018 Pre Sedation Assessment Vital Signs Temp Pulse Pulse Resp BP BP Pulse Ox 12/02/18 08:27 97.7 F 68 18 150/72 H 100 12/02/18 08:00 63 12/02/18 05:37 98.1 F 65 18 127/63 99 12/02/18 02:41 97.9 F 67 16 147/66 H 100 12/02/18 02:35 12/02/18 01:30 63 13 99 12/02/18 01:20 66 23 87 L 12/02/18 01:10 64 16 98 12/02/18 01:00 66 19 100 12/02/18 00:50 67 22 100 12/02/18 00:40 63 18 93 12/02/18 00:30 68 16 97 12/02/18 00:20 66 17 99 12/02/18 00:10 66 19 100 12/02/18 00:00 67 21 99 12/01/18 23:50 66 12 99 12/01/18 23:48 67 124/65 99 12/01/18 23:40 64 16 12/01/18 23:30 66 17 12/01/18 23:20 66 18 12/01/18 23:10 66 16 12/01/18 23:00 67 27 H 12/01/18 22:50 67 17 12/01/18 22:40 70 21 98 12/01/18 22:30 68 14 12/01/18 22:27 72 20 12/01/18 20:35 99.1 F 70 18 152/67 H 100 12/01/18 20:29 70 22 152/67 H Pulse Ox 12/02/18 08:27 12/02/18 08:00 12/02/18 05:37 12/02/18 02:41 12/02/18 02:35 100 12/02/18 01:30 12/02/18 01:20 12/02/18 01:10 12/02/18 01:00 12/02/18 00:50 12/02/18 00:40 12/02/18 00:30 12/02/18 00:20 12/02/18 00:10 12/02/18 00:00 12/01/18 23:50 12/01/18 23:48 12/01/18 23:40 12/01/18 23:30 12/01/18 23:20 12/01/18 23:10 12/01/18 23:00 12/01/18 22:50 12/01/18 22:40 12/01/18 22:30 12/01/18 22:27 12/01/18 20:35 12/01/18 20:29 Cardiovascular RRR, no murmur, no edema Respiratory normal respiratory effort, lungs clear to auscultation Pre-Sedation Airway Assessment Smoking Status: Never smoker Hx Sleep Apnea: No Hx Difficult Intubation: No Short, Thick Neck: No Thyromental Distance: > or= 3.5 Finger Breadths Mallampati Class: III Procedure Planning Contraindications for Sedation: none Current Medications Reviewed: Yes Notes The planned sedation has been discussed with the patient. Informed Consent was obtained. I have identified the patient, determined the appropriateness of sedation and have assessed the patient immediately prior to the procedure. All medicine(s) and interventions are by my order.
--- NOTE | 2018-12-02 12:17 | Post Anesthesia Assessment ---
Date of Service December 02, 2018 Post Sedation Assessment Vital Signs Temp Pulse Pulse Resp BP BP Pulse Ox 12/02/18 08:27 97.7 F 68 18 150/72 H 100 12/02/18 08:00 63 12/02/18 05:37 98.1 F 65 18 127/63 99 12/02/18 02:41 97.9 F 67 16 147/66 H 100 12/02/18 02:35 12/02/18 01:30 63 13 99 12/02/18 01:20 66 23 87 L 12/02/18 01:10 64 16 98 12/02/18 01:00 66 19 100 12/02/18 00:50 67 22 100 12/02/18 00:40 63 18 93 12/02/18 00:30 68 16 97 12/02/18 00:20 66 17 99 12/02/18 00:10 66 19 100 12/02/18 00:00 67 21 99 12/01/18 23:50 66 12 99 12/01/18 23:48 67 124/65 99 12/01/18 23:40 64 16 12/01/18 23:30 66 17 12/01/18 23:20 66 18 12/01/18 23:10 66 16 12/01/18 23:00 67 27 H 12/01/18 22:50 67 17 12/01/18 22:40 70 21 98 12/01/18 22:30 68 14 12/01/18 22:27 72 20 12/01/18 20:35 99.1 F 70 18 152/67 H 100 12/01/18 20:29 70 22 152/67 H Pulse Ox 12/02/18 08:27 12/02/18 08:00 12/02/18 05:37 12/02/18 02:41 12/02/18 02:35 100 12/02/18 01:30 12/02/18 01:20 12/02/18 01:10 12/02/18 01:00 12/02/18 00:50 12/02/18 00:40 12/02/18 00:30 12/02/18 00:20 12/02/18 00:10 12/02/18 00:00 12/01/18 23:50 12/01/18 23:48 12/01/18 23:40 12/01/18 23:30 12/01/18 23:20 12/01/18 23:10 12/01/18 23:00 12/01/18 22:50 12/01/18 22:40 12/01/18 22:30 12/01/18 22:27 12/01/18 20:35 12/01/18 20:29 Recovery Score Activity: Moves 4 extremities Respiration: Deep Breath/Cough Circulation: +/-20% PreAnes Value Consciousness: Fully Awake Oxygen Saturation: O2 needed for >90% Discharge Sedation Level of Care: Fast Track Phase II Post Sedation Plan On clinical assessment, the patient appears to have tolerated the sedation without complications. Patient is recovering as anticipated. Patient will continue to be monitored by nursing and may be discharged when sedation discharge criteria are met per below protocol. Upon Completions of procedure and additional 15 minutes continue every 5 minute vital signs and the P.A.R. score; then discharge to a Phase I or Fast Track to Phase II per the following guidelines: * Discharge Patient to appropriate Phase II area if PAR is 8 or greater or return to pre- procedure baseline. The post - procedure orders will be as directed. * If PAR score is less than 8 or not return to pre-procedure baseline then allan ent will follow Phase I monitoring till PAR is reached for Phase II. The Phase I may be done in procedure room or may call to secure a Phase I area. * If naloxone or flumazenil are used for reversal, hold in Phase I for continued monitoring from when last reversal dose was given for a minimum of 60 minutes or longer pending the nurse and/or physician discretion of patient condition before discharge to Phase II. Please call the Sedation Physician to re-evaluate and complete post-note for discharge to Phase II area. Do NOT discharge from procedure sedation or Phase 1 until post- sedation e valuation note is complete by procedure /sedation MD Sedation Discharge Instructions to be given to the patient at discharge to home.
--- NOTE | 2018-12-02 12:40 | Cardiac Catheterization ---
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 Cardiac Status Clinical evaluation leading to the procedure CAD Presenation: Non STEMI Anginal Classification: CCS IV Heart Failure: No Cardiogenic Shock within 24 Hours: No Cardiac Arrest within 24 Hours: No Imaging Studies Past 6 Months: Yes Stress Studies Past 6 Months: No Diagnostic Physicians Name: Johnson Miranda MD Status: Elective Closure Device Percutaneous Entry Location: Femoral Closure Device: Mynx Recommendations: Medical Therapy and/or Counseling Intraprocedure Events Significant Disection: No Perforation: No Cardiac Cath Procedure Full Procedure Date December 02, 2018 Pre-Procedure Diagnosis Pre-Procedure Diagnosis: Non STEMI AUC Score AUC Score: 8 Post-Procedure Diagnosis Post-Procedure Diagnosis: Severe CAD and Elevated Intracardiac Pressures Procedure(s) Performed Procedure(s) Performed: Coronary Angiography, Left Heart Cath and Femoral Artery Angiography Field Education Director Johnson Miranda MD Loader Magazine Grinder(s) Flo Estimated Blood Loss Estimated Blood Loss: 15 Medication(s) Medication(s): Fentanyl, Heparin, Lidocaine 1%, Nicardipine, Nitroglycerin and Versed Summary of Findings Indication: NSTEMI Access: 6 Fr right radial artery, 6 Fr right common femoral artery Catheters: Taiwo Rios, JL 3 5, JR4. Via femoral artery able to cannulate left main with JL 3.0 guide and RCA with 3 DRC Findings: LM -heavily calcified, 60 to 70% ostial stenosis LAD -small to moderate caliber vessel, calcified, diffuse 40 to 50% hazy proximal disease, focal 70% mid segment stenosis at takeoff of second septal. Distal vessel small, angulated, tapers prior to apex. Ramussmall to moderate caliber, 40% proximal, 80% mid segment disease Circumflex -moderate caliber, 60-70% ostial stenosis, moderate caliber OM 2 with 30% proximal diffuse disease. RCA -large caliber vessel, dominant, heavily calcified with 95+% ostial/proximal stenosis, 60% mid segment stenosis distal RCA/PDA with luminal irregularities LVEDP - 18 Arterial Closure: TR Band, Mynx Summary: 1. Severe multi-vessel coronary artery disease - 60-70% ostial LM - 40-50% proximal LAD, 70% acute mid LAD (likely culprit, EDWIN 3 flow distal). - 60-70% ostial circumflex - 80% mid Ramus - 95+% ostial/proximal RCA 2. Mildly elevated intracardiac filling pressure Recommendations: Severe, calcified, complex multi-vessel disease in diabetic - would ideally send for CABG but with co-morbidities, questionable LAD target suspect likely not a surgical candidate. Based on echo, acute appearance of stenosis suspect mid LAD is culprit lesion for event. Peak symptoms more than 36 hrs, troponin trending down and EDWIN 3 flow in LAD -- recommend medical management. Ostial RCA looks to be most high risk lesion. PCI could be considered if fails medical therapy but would be high risk procedure. For now recommend gentle fluids for acute on chronic kidney disease. Continue heparin for 48 hrs Titrate metoprolol as HR allows. JADEN on hold with LEEANN Transition to PO nitrates. Continue clopidogrel Hemodynamics Rest Ao:: 103/39/65 Final Ao: 113/34/65 LV: 113/8 Recommendations Recommendations: Medical Therapy and/or Counseling Specimens Specimens: None Radiation Exposure (mGy) 1501 Contrast (mls) 125 Fluids (cc crystalloids) Fluids (cc crystalloids): 50 Drains Drains: none Anesthesia moderate Procedural Complication(s) None Disposition PCU
[2018-12-02] MEDS ORDERED: SODIUM CHLORIDE 0.9% 1000ML 1,000 ML IV SCH (13:00)
--- NOTE | 2018-12-02 18:41 | History & Physical Bridge Note ---
Date of Service December 02, 2018 History & Physical Bridge Note Patient seen and examined today after catheterization. Diffuse disease in a diabetic. She would qualify for bypass, but probably would not undergo this given her age and frailty. Will medically manage for now. If further chest pain, will consider intervention on the RCA.
[2018-12-02] MEDS: INSULIN GLARGINE SOLOSTAR 100 UNITS/ML 3 ML PEN SQ SCH (21:08)
[2018-12-02] MEDS ORDERED: Nursing to Pharmacy Communication ONE (21:36)
[2018-12-02 22:11] LABS: Partial Thromboplastin Ratio 1.5; Partial Thromboplastin Time 41.6 Seconds (21.0-31.0)
[2018-12-02] MEDS ORDERED: HEPARIN IV BOLUS 2,000 UNITS in SYRINGE 0 ML IV ONE (22:15)
[2018-12-03] MEDS: NITROGLYCERIN 2% OINTMENT 30GM TUBE EXT SCH ×4 (00:21→19:21)
[2018-12-03 04:40] LABS: Mean Corpuscular Hemoglobin 31.1 pg (25-34); Mean Corpuscular Hgb Conc 32.1 g/dL (32-36); Mean Corpuscular Volume 96.9 fL (80-100); Mean Platelet Volume 9.8 fL (7.4-10.4); Platelet Count 300 K/uL (130-400); RDW Standard Deviation 49.1 fL (36.4-46.3); Red Blood Count 2.89 M/uL (4.2-5.4); White Blood Count 10.31 K/uL (4.8-10.8)
[2018-12-03 04:58] LABS: BUN Creatinine Ratio 20.4 (10-20); Calcium 7.9 mg/dl (8.5-10.1); Creatinine Clr Calc Pharmacy 21.3 ml/min; Est GFR (African American) 28.7; Est GFR (Non-African American) 24.8; Magnesium 2.4 mg/dl (1.8-2.4); Potassium 5.3 mmol/L (3.5-5.1)
[2018-12-03 05:01] LABS: Partial Thromboplastin Ratio 2.4
[2018-12-03] MEDS ORDERED: CEFEPIME 2,000 MG in SYRINGE 7.5 ML IV SCH (05:30)
[2018-12-03 05:42] LABS: Partial Thromboplastin Time 65.7 Seconds (21.0-31.0)
[2018-12-03] MEDS: HEPARIN SODIUM/DEXTROSE 25,000 UNITS/500 ML BAG IV SCH (05:59)
[2018-12-03] MEDS ORDERED: INSULIN ASPART 100 UNITS/ML 3 ML PEN SC SCH (07:30)
[2018-12-03] MEDS: INSULIN ASPART 100 UNITS/ML 3 ML PEN SC SCH ×4 (08:11→21:14)
[2018-12-03] MEDS: CHOLECALCIFEROL 1,000 UNITS TAB PO SCH (08:17)
[2018-12-03] MEDS: TOPIRAMATE 25 MG TAB PO SCH (08:17)
[2018-12-03] MEDS: CLOPIDOGREL BISULFATE 75 MG TAB PO SCH (08:17)
[2018-12-03] MEDS: METOPROLOL TARTRATE 25 MG TAB PO SCH ×2 (08:17→21:04)
[2018-12-03] MEDS: PANTOprazole 40 MG TAB PO SCH (08:17)
[2018-12-03] MEDS: GABAPENTIN 100 MG CAP PO SCH (08:18)
--- NOTE | 2018-12-03 10:25 | Cardiology Progress Note ---
Date of Service December 03, 2018 Assessment & Plan (1) NSTEMI (non-ST elevated myocardial infarction): 2. Acute on chronic renal insufficiency 3. New LV dysfunction with apical wall motion normality - EF 35-40% 4. Anemia 5. Rheumatoid arthritis 6. Peripheral arterial disease 7. Prior CVA 8. Active right heel ulceration 9. Insulin-dependent diabetes Patient chest pain free, hemodynamically and electrically stable overnight. Troponin continues to trend down. Renal function improving. No apparent access site complications. Suspect acute culprit of symptoms was mid LAD transient occlusion vs stress- induced cardiomyopathy as apical wall motion abnormality seems out of proportion to disease in small LAD. Going forward plan to optimize medical management for severe chronic multivessel CAD and resume GDMT for cardiomyopathy. -- can discontinue heparin today -- continue clopidogrel, ideally restart ASA if can tolerate. -- continue current metoprolol 75mg BID -- > transition to toprol on d/c -- can transition nitropatch to imdur 30mg daily -- resume JADEN when renal function stable. -- Continue to monitor for recurrent symptoms as starts being more active. At this point no plan for additional intervention unless refractory symptoms. Subjective Feeling well today. No chest pain overnight. Has not been out of bed yet. No other new concerns. Telemetry reviewed -- few PVCs. No other events. Review of Systems Review of Systems: All systems reviewed & are unremarkable except as noted in HPI & below Physical Exam Constitutional: WD/WN, vitals as above Eyes: + anicteric sclerae Respiratory: normal respiratory effort, lungs clear to auscultation Cardiovascular: RRR, no murmur, no edema right radial artery access site -- no ecchymosis/hematoma. 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 tender. pulse intact. no hematoma Gastrointestinal (Abdomen): normal bowel sounds, soft, nontender, no hepatosplenomegaly Skin: no rashes, warm and dry Psychiatric: A+Ox3, euthymic affect Results & Data Vital Signs (Past 12 Hours) Vital Signs Temp Pulse Pulse Resp BP Pulse Ox 12/03/18 07:40 68 12/03/18 07:07 98.4 F 67 17 123/61 97 12/03/18 03:20 98.4 F 66 18 124/57 L 97 12/02/18 23:21 97.9 F 64 17 107/54 L 95 PG Care Time/CCT Total # of Minutes Spent Total Time Spent with Patient: Total time spent is greater than 50% in coordination of care (as documented) at patient's floor/unit and/or counseling patient:
--- NOTE | 2018-12-03 17:01 | Hospitalist Progress Note ---
Date of Service December 03, 2018 Assessment & Plan (1) Acute NE: NSTEMI. Troponin peaked at 14 on admission, and has been downtrending since. - Cardiac cath on 12/02 showed diffuse disease -> Culprit for NE thought to be a transient LAD lesion vs. stress-induced cardiomyopathy - Finish heparin gtt on 12/03 - Continue Plavix; consider restarting ASA if able - Continue beta-eileen - Start ACEi when renal function is stable - Start Imdur tomorrow morning; stop patch at that time (2) Diabetic foot ulcer associated with type 2 diabetes mellitus: Likely osteitis R foot with possible developing abscess/phlegmon. MRI foot on 12/02 showed a partially loculated fluid collection which abuts the cortex of the calcaneus and measures approximately 1.3 cm. - Cefepime was stopped on 12/03 because all culture are growing Gram(+) bugs - Continue daptomycin - Ortho and ID consulted - Ortho has not seen her yet today, though I did alert attending to the consult (3) Anemia: Likely 2/2 chronic disease and kidney disease. Hemoglobin was 9.7 on admission. Per outside lab was 9.3 in November 16, 2018. - Continue to monitor (4) Chronic kidney disease, stage 3: Acute kidney failure on CKD. Baseline Cr is unknown, though her Cr. has trended down from 2.4 on admission down to 1.85 today. - Monitor (5) Peripheral arterial disease: (6) Stage II pressure ulcer of buttock: Wound care following (7) CVA (cerebral vascular accident): Hx of CVA. - Continue Plavix, statin (8) HTN (hypertension): BP within desired limits in the hospital. - Continue home meds (9) Hyperlipidemia: - Continue statin (10) DVT prophylaxis: On heparin gtt at this time Subjective Feeling much better. No chest pain. Foot feels about the same. Review of Systems Review of Systems: All systems reviewed & are unremarkable except as noted in HPI & below Physical Exam Constitutional: WD/WN, vitals as above Eyes: EOM intact bilaterally; no conjunctival abnormality ENMT: external ear and nose normal, oropharynx normal Neck: trachea midline, no thyromegaly normal visual inspection Respiratory: normal respiratory effort, lungs clear to auscultation no respiratory distress Cardiovascular: RRR, no murmur, no edema Gastrointestinal (Abdomen): Inspection/Auscultation: abdomen normal to inspection; abdomen not distended Musculoskeletal: no cyanosis or clubbing, extremities motor strength 5/5 Skin: no rashes, warm and dry Right foot with ulcers Neurologic: moves all extremities and awake Psychiatric: Orientation: alert, oriented to person and cooperative Results & Data Vital Signs (Past 12 Hours) Vital Signs Temp Pulse Pulse Resp BP Pulse Ox 12/03/18 15:27 37.3 C 66 19 111/64 97 12/03/18 14:53 64 12/03/18 10:46 37.6 C H 65 19 113/55 L 96 12/03/18 07:40 68 12/03/18 07:07 36.9 C 67 17 123/61 97 PG Care Time/CCT Total # of Minutes Spent Total Time Spent with Patient: Total time spent is greater than 50% in coordination of care (as documented) at patient's floor/unit and/or counseling patient: (1) Acute NE Involved coronary artery: unspecified coronary artery Myocardial infarction type: unspecified Qualified Code(s): I21.9 - Acute myocardial infarction, unspecified (2) Anemia Anemia type: unspecified type Qualified Code(s): D64.9 - Anemia, unspecified (3) Diabetic foot ulcer associated with type 2 diabetes mellitus Diabetic foot ulcer location: heel Laterality: right Non-pressure ulcer stage: with fat layer exposed Qualified Code(s): E11.621 - Type 2 diabetes mellitus with foot ulcer; L97.412 - Non-pressure chronic ulcer of right heel and midfoot with fat layer exposed (4) Stage II pressure ulcer of buttock Laterality: left Qualified Code(s): L89.322 - Pressure ulcer of left buttock, stage 2
[2018-12-03] MEDS ORDERED: fentaNYL citrate 100 MCG/2 ML VIAL IV PRN (20:50)
[2018-12-03] MEDS ORDERED: fentaNYL citrate 100 MCG/2 ML VIAL ONE (20:50)
[2018-12-03] MEDS: INSULIN GLARGINE SOLOSTAR 100 UNITS/ML 3 ML PEN SQ SCH (21:14)
[2018-12-04] MEDS: NITROGLYCERIN 2% OINTMENT 30GM TUBE EXT SCH ×2 (00:20→05:45)
[2018-12-04] MEDS: DAPTOmycin 300 MG in SYRINGE 0 ML IV SCH (05:46)
[2018-12-04 06:34] LABS: Hematocrit (blood only) 26.6 % (37-47); Hemoglobin 8.5 g/dL (12.0-16.0); Mean Corpuscular Volume 97.1 fL (80-100); Mean Platelet Volume 10.5 fL (7.4-10.4); Platelet Count 302 K/uL (130-400); RDW Coefficient of Variation 14.3 % (11.5-14.5); RDW Standard Deviation 49.7 fL (36.4-46.3); Red Blood Count 2.74 M/uL (4.2-5.4); White Blood Count 8.72 K/uL (4.8-10.8)
[2018-12-04 07:19] LABS: BUN Creatinine Ratio 18.9 (10-20); Calcium 7.9 mg/dl (8.5-10.1); Creatinine Clr Calc Pharmacy 21.2 ml/min; Est GFR (African American) 28.7; Est GFR (Non-African American) 24.8
[2018-12-04] MEDS: CLOPIDOGREL BISULFATE 75 MG TAB PO SCH (07:55)
[2018-12-04] MEDS: GABAPENTIN 100 MG CAP PO SCH (07:55)
[2018-12-04] MEDS: CHOLECALCIFEROL 1,000 UNITS TAB PO SCH (07:55)
[2018-12-04] MEDS: ASPIRIN 81 MG ECTAB PO SCH (07:55)
[2018-12-04] MEDS: ISOSORBIDE MONO EXTENDED REL 30 MG TABCR PO SCH (07:55)
[2018-12-04] MEDS: TOPIRAMATE 25 MG TAB PO SCH (07:55)
[2018-12-04] MEDS: PANTOprazole 40 MG TAB PO SCH (07:56)
[2018-12-04] MEDS: METOPROLOL TARTRATE 25 MG TAB PO SCH ×2 (07:56→21:45)
[2018-12-04 08:02] LABS: Potassium 4.9 mmol/L (3.5-5.1)
[2018-12-04 08:10] LABS: Magnesium 2.5 mg/dl (1.8-2.4)
--- NOTE | 2018-12-04 08:46 | Infectious Disease Consult ---
Date of Consultation December 04, 2018 Assessment & Plan (1) Diabetic foot ulcer associated with type 2 diabetes mellitus: agree with Dapto. She could be transitioned to amoxicillin if pcn allergy clarified but will continue Dapto for now. will need ongoing wound care post d/c and can follow with ID at wound center as well. may benefit from additional debridement, will defer to wound care. History of Present Illness Attending Physician: Chadwick Jefferson MD pt admitted with [place]. s/p cath. She is known to wound center for foot infection. She had culture done on 11/30 due to worsening appearance of wound, grew E.f aecalis - jung sensitive, has unknown allergy to pcn. she is on Dapto, she is tolerting well. She has no foot pain. on my exam she is eating breakfast, she denies cp, no sob, smith, cough. Declines foot exam due to eating. no f/c. toleraing abx. was to have MRI as oupt but admitted with cp. she did have MRI here showing foot abscess 1.3cm but no osteo. wbc 8.7, creat elevated 1.8 Allergies Allergy/AdvReac Type Severity Reaction Status Date / Time acetaminophen Allergy Unknown SWEATING Verified 12/01/18 22:36 amitriptyline Allergy Unknown BLURRED Verified 12/01/18 22:36 DOUBLE VISION Cipro Allergy Unknown itshiness,red Verified 06/25/16 17:42 streak ciprofloxacin Allergy Unknown itshiness,red Verified 12/01/18 22:36 streak gabapentin Allergy Unknown SHAKES,VISION Verified 12/01/18 22:36 CHANGES guaifenesin Allergy Unknown UNKNOWN Verified 12/01/18 22:36 latex Allergy Unknown SKIN GETS Verified 12/01/18 22:36 RAW-PT HAS NO RECOLLECTION meloxicam Allergy Unknown DIARRHEA Verified 12/01/18 22:36 metformin Allergy Unknown HOT FLASHES Verified 12/01/18 22:36 metronidazole Allergy Unknown UNKNOWN Verified 12/01/18 22:36 Penicillins Allergy Unknown INJECTION Verified 11/23/18 09:16 UNKNOWN pioglitazone Allergy Unknown SORE Verified 11/23/18 09:16 THROAT,EAts excessively pregabalin Allergy Unknown DIZZINESS, Verified 11/23/18 09:16 SLEEPY rofecoxib Allergy Unknown UNKNOWN Verified 11/23/18 09:16 rosuvastatin Allergy Unknown UNKNOWN Verified 11/23/18 09:16 simvastatin Allergy Unknown UNKNOWN Verified 11/11/18 10:30 Sulfa (Sulfonamide Allergy Unknown HIVES Verified 11/11/18 10:30 Antibiotics) tramadol Allergy Unknown SWEATING Verified 11/11/18 10:30 Tricyclic Antidepressants Allergy Unknown UNKNOWN Uncoded 11/11/18 10:30 Home Medications Home Medications Medication Instructions Recorded Confirmed Type atorvastatin 40 mg tablet 40 mg PO QAM tab 06/28/18 12/01/18 History clopidogrel 75 mg tablet 75 mg PO DAILY 06/28/18 12/01/18 History furosemide 20 mg tablet 20 mg PO BID 06/28/18 12/01/18 History insulin aspart (U-100) 100 unit/mL 4 - 6 units SQ TIDM ml 06/28/18 12/01/18 History (3 mL) subcutaneous pen insulin glargine (U- 100) 100 12 units SQ HS ml 06/28/18 12/01/18 History unit/mL subcutaneous solution metoprolol tartrate 75 mg tablet 75 mg PO BID 06/28/18 12/01/18 History tramadol 50 mg tablet 50 mg PO Q8H PRN 10/19/18 12/01/18 History blood sugar diagnostic strips #10 ea 11/05/18 12/01/18 History topiramate 25 mg tablet 25 mg PO DAILY #30 tab 11/05/18 12/01/18 History cholecalciferol (vitamin D3) 1,000 unit PO DAILY 12/01/18 12/01/18 History [Vitamin D3] gabapentin 100 mg PO DAILY 12/01/18 12/01/18 History lisinopril 10 mg PO DAILY 12/01/18 12/01/18 History pantoprazole [Protonix] 40 mg PO DAILY 12/01/18 12/01/18 History Patient History Medical History Chronic kidney disease, stage 3 (Chronic) HTN (hypertension) (Chronic) Diabetes mellitus with diabetic polyneuropathy (Acute) Ulcer of right heel (Acute) Anxiety associated with depression (Chronic) Benign recurrent vertigo (Chronic) Bilateral foot-drop (Chronic) Blood clotting disorder (Chronic) Chronic GERD (Chronic) Diabetes mellitus type 2 with complications, uncontrolled (Chronic) Gastritis (Chronic) H/O diastolic dysfunction (Chronic) H/O: CVA (cerebrovascular accident) (Chronic) Hyperlipidemia (Chronic) Hypokalemia (Chronic) Memory loss (Chronic) Nephropathy (Chronic) Neurologic gait dysfunction (Chronic) Osteoarthritis (Chronic) Polyarthritis (Chronic) Resting tremor (Chronic) Right lumbar radiculopathy (Chronic) Sleep apnea (Chronic) Stenosis of right carotid artery (Chronic) Urinary frequency (Chronic) Vitamin D deficiency (Chronic) Weight disorder (Chronic) Cataract (Resolved) Cholecystectomy planned (Resolved) H/O: hysterectomy (Resolved) Surgical History Hx of tonsillectomy (Resolved) Family History Other No pertinent family history Social History Preferred Language: Cypriot Communication Ability: Effective Visual Impairment: No Limitations Hearing Ability: Hard of Hearing Hired Help Required: No Beliefs That Will Affect Care: None marital status: Current Living Situation: Spouse current occupational status: retired Other Information That Helps Us Care for You: No Feels Safe at Home: Yes Safety Concerns: Feels Safe At This Time Smoking Status: Never smoker Do You Dip or Chew Tobacco: No ; Hx Alcohol Use: No Hx Substance Use: No Review of Systems Review of Systems: All systems reviewed & are unremarkable except as noted in HPI & below Physical Exam Constitutional: WD/WN, vitals as above Eyes: PERRL, conjunctivae normal, anicteric sclerae ENMT: external ear and nose normal, oropharynx normal Neck: normal visual inspection Respiratory: normal respiratory effort, lungs clear to auscultation Cardiovascular: RRR, no murmur, no edema Gastrointestinal (Abdomen): normal bowel sounds, soft, nontender, no hepatosplenomegaly Musculoskeletal: no cyanosis or clubbing, extremities motor strength 5/5 Skin: no rashes, warm and dry Psychiatric: A+Ox3, euthymic affect Apperance: appeared stated age Results & Data Vital Signs (Past 12 Hours) Vital Signs Temp Pulse Pulse Resp BP Pulse Ox 12/04/18 07:30 37.3 C 70 19 165/68 H 100 12/04/18 04:31 69 164/67 H 12/04/18 02:57 37.0 C 61 17 120/56 L 96 09/07/19 00:00 58 L 12/03/18 23:41 36.9 C 62 18 118/63 100 12/03/18 20:47 78 175/74 H PG Care Time/CCT Total # of Minutes Spent Total Time Spent with Patient: Total time spent is greater than 50% in coordination of care (as documented) at patient's floor/unit and/or counseling patient: (1) Diabetic foot ulcer associated with type 2 diabetes mellitus Diabetic foot ulcer location: heel Laterality: right Non-pressure ulcer stage: with fat layer exposed Qualified Code(s): E11.621 - Type 2 diabetes mellitus with foot ulcer; L97.412 - Non-pressure chronic ulcer of right heel and midfoot with fat layer exposed
[2018-12-04] MEDS: INSULIN ASPART 100 UNITS/ML 3 ML PEN SC SCH ×4 (08:52→21:47)
[2018-12-04] MEDS ORDERED: HEPARIN SOD 5,000 UNIT/0.5 ML VIAL SQ SCH (09:00)
--- NOTE | 2018-12-04 12:09 | Hospitalist Progress Note ---
Date of Service December 04, 2018 Assessment & Plan (1) Vision changes: Morning of 12/04 she reported vision changes. Reports it as seeing "nothing" in certain areas, but cannot really tell me otherwise. Can count some fingers, but not misses some. Appears to have some left-sided bobby-neglect. - MRI brain stat - Contraindications for tPA including recent arterial punctures, recent anticoagulation (2) Acute OR: NSTEMI. Troponin peaked at 14 on admission, and has been downtrending since. - Cardiac cath on 12/02 showed diffuse disease -> Culprit for OR thought to be a transient LAD lesion vs. stress-induced cardiomyopathy - Finish heparin gtt on 12/03 - Continue ASA & Plavix - Continue beta-eileen, statin - Started Imdur on 12/04 - Start ACEi when renal function is stable & BP tolerates (3) Diabetic foot ulcer associated with type 2 diabetes mellitus: Likely osteitis R foot with possible developing abscess/phlegmon. MRI foot on 12/02 showed a partially loculated fluid collection which abuts the cortex of the calcaneus and measures approximately 1.3 cm. - Cefepime was stopped on 12/03 because all culture are growing Gram(+) bugs - Ortho and ID consulted - Appreciate assistance - Continue daptomycin; monitor CK while on dapto and statin (4) Anemia: Likely 2/2 chronic disease and kidney disease. Hemoglobin was 9.7 on admission. Per outside lab was 9.3 in November 16, 2018. - Continue to monitor (5) Chronic kidney disease, stage 3: Acute kidney failure on CKD. Baseline Cr is unknown, though her Cr. has trended down from 2.4 on admission down to 1.85. Has been stable there for 2 days, so this may be her baseline. - Monitor (6) Peripheral arterial disease: (7) Stage II pressure ulcer of buttock: Wound care following (8) CVA (cerebral vascular accident): Hx of CVA. - Continue Plavix, statin - See above for present concern of CVA (9) HTN (hypertension): BP within desired limits in the hospital. - Continue home meds (10) Hyperlipidemia: - Continue statin (11) DVT prophylaxis: Heparin 5000 units Q12h Subjective Reports not being able to see this morning. Started with breakfast where she reports that she could not see her tray. She reports "nothing" was there. She denies any black area, spots, lines, or other visual disturbances. She denies any pain in th eye. She also reports she cannot see the TV or the clock. She also reports the chest pain is still sometimes there? She reports that maybe she had some this morning or maybe overnight, but she is not sure when it was. Review of Systems Review of Systems: All systems reviewed & are unremarkable except as noted in HPI & below Physical Exam Constitutional: WD/WN, vitals as above Eyes: EOM intact bilaterally; no conjunctival abnormality ENMT: external ear and nose normal, oropharynx normal Neck: trachea midline, no thyromegaly normal visual inspection Respiratory: normal respiratory effort, lungs clear to auscultation no respiratory distress Cardiovascular: RRR, no murmur, no edema Gastrointestinal (Abdomen): Inspection/Auscultation: abdomen normal to inspection; abdomen not distended Musculoskeletal: no cyanosis or clubbing, extremities motor strength 5/5 Skin: no rashes, warm and dry Neurologic: moves all extremities and awake Psychiatric: Orientation: alert, oriented to person and cooperative Results & Data Vital Signs (Past 12 Hours) Vital Signs Temp Pulse Resp BP BP Pulse Ox 12/04/18 10:38 36.9 C 60 18 99 12/04/18 10:34 100/47 L 12/04/18 07:30 37.3 C 70 19 165/68 H 100 12/04/18 04:31 69 164/67 H 12/04/18 02:57 37.0 C 61 17 120/56 L 96 PG Care Time/CCT Total # of Minutes Spent Total Time Spent with Patient: Total time spent is greater than 50% in coordination of care (as documented) at patient's floor/unit and/or counseling patient: (1) Acute OR Involved coronary artery: unspecified coronary artery Myocardial infarction type: unspecified Qualified Code(s): I21.9 - Acute myocardial infarction, unspecified (2) Diabetic foot ulcer associated with type 2 diabetes mellitus Diabetic foot ulcer location: heel Laterality: right Non-pressure ulcer stage: with fat layer exposed Qualified Code(s): E11.621 - Type 2 diabetes mellitus with foot ulcer; L97.412 - Non-pressure chronic ulcer of right heel and midfoot with fat layer exposed (3) Anemia Anemia type: unspecified type Qualified Code(s): D64.9 - Anemia, unspecified (4) Stage II pressure ulcer of buttock Laterality: left Qualified Code(s): L89.322 - Pressure ulcer of left buttock, stage 2
--- NOTE | 2018-12-04 13:59 | Magnetic Resonance Report ---
MRI OF THE BRAIN WITHOUT CONTRAST CLINICAL HISTORY: Left-sided hemicord. Suspected acute stroke. COMPARISON STUDY: July 2013 FINDINGS: Sagittal T1, axial diffusion, proton density and T2 weighted axial, coronal FLAIR, and axial T1-weigh adam images were acquired. No intra or extra-axial mass lesions are visualized There are extensive foci of restricted water diffusion involving both occipital lobes. There is also a focus of restricted water diffusion within the left cerebellar hemisphere. The findings are indicat marcelo of acute/subacute infarct There is mild ventricular dilatation, likely secondary to volume loss Proton density T2-weighted and FLAIR images reveal moderately extensive foci of increased T2 signal w ithin the white matter, likely on a small vessel basis. In addition there are foci of increased FLAIR signal within the temporal lobes, corresponding to the acute/subacute infarcts. There are old lacuna r infarcts within the lotus. There are no abnormal flow voids. There are bilateral mastoid effusions. IMPRESSION: 1. Acute posterior circulation stroke with moderately extensive foci of restricted water diffusion in volving both occipital lobes. There is also focus of restricted water diffusion left cerebellar hemis phere. The findings are indicative of acute/subacute bilateral infarcts Electronically signed by: Dru Harmon M.D. 12/04/2018 1:58 PM
[2018-12-04] MEDS ORDERED: OPTIRAY 320 125ml IV PRN (15:35)
--- NOTE | 2018-12-04 15:55 | CT Scan Report ---
CT angio neck with con CLINICAL HISTORY: Acute posterior circulation stroke COMPARISON STUDY: MRI of the brain dated 12/04/2018 TECHNIQUE: CT angiography was performed from the aortic arch to the skull base. MIP imaging was perfo rmed. The patient was scanned in a dynamic helical fashion during intravenous administration of 114 c c of Optiray 320. A dose lowering technique was utilized adhering to the principles of ALARA. CT DOSE: 522.81 mGy.cm Technique: CT angiogram of the carotid and vertebral arteries was obtained using intravenous contrast and 3-D reconstruction. NASCET criteria was utilized. Findings: There is extensive atheromatous plaque at the level of the proximal right internal carotid. This resu lts in a 57% diameter stenosis. This may be a slight over estimation given the degree of calcific adrián que. There is no evidence of dissection or internal carotid artery aneurysm. There is mild atheromatous plaque at the level left carotid bulb. There is no evidence of hemodynamic ally significant stenosis. Calcifications are also visualized within the cavernous carotid. There is a dominant right vertebral artery. The left vertebral artery appears to terminate in a PICA branch. There is no evidence of significant vertebral artery or basilar artery stenosis. IMPRESSION: 1. Atheromatous changes with a less than 60% diameter stenosis of the right internal carotid artery 2. Dominant right vertebral artery. No evidence of dynamically significant vertebral artery stenosis Electronically signed by: Dru Harmon M.D. 12/04/2018 3:54 PM
--- NOTE | 2018-12-04 16:06 | CT Scan Report ---
CT angio head w con CLINICAL HISTORY: Acute posterior circulation stroke TECHNIQUE: CT angiography of the head was performed in a dynamic helical fashion during intravenous a dministration of 114 cc of Optiray 320. MIP imaging was performed. A dose lowering technique was util ized adhering to the principles of ALARA. CT DOSE: COMPARISON STUDY: Noncontrast CT scan dated 12/25/2013, MRI of the brain dated 12/04/2018 FINDINGS: There are no lesion suspicious for aneurysm. There are no major intracranial branch occlusi ons. The dural venous sinuses appear patent. The right vertebral artery is dominant. The distal left vertebral artery is markedly hypoplastic. It is equivocally occluded. There are bilateral occipital l obe hypodensities consistent with areas of infarction. There are bilateral mastoid effusions right greater than left IMPRESSION: 1. No significant abnormalities of the anterior circulation 2. Dominant right vertebral artery. Markedly hypoplastic distal left vertebral artery with possible o cclusion of the distalmost hypoplastic segment. 3. Acute/subacute bilateral occipital lobe infarcts Electronically signed by: Dru Harmon M.D. 12/04/2018 4:05 PM
[2018-12-04] MEDS ORDERED: Heparin IV Low Dose *NO* Bolus IV SCH (17:18)
[2018-12-04] MEDS ORDERED: HEPARIN SODIUM/DEXTROSE 25,000 UNITS/500 ML BAG IV SCH (17:30)
[2018-12-04 18:51] LABS: Partial Thromboplastin Ratio 1.1; Partial Thromboplastin Time 28.6 Seconds (21.0-31.0)
[2018-12-04] MEDS ORDERED: DOCUSATE SODIUM 100 MG CAP PO PRN (20:22)
[2018-12-04] MEDS ORDERED: SENNA 8.6 MG TAB PO PRN (20:22)
[2018-12-04] MEDS ORDERED: POLYETHYLENE (MIRALAX) 17 GM PACK PO PRN (20:22)
[2018-12-04] MEDS: INSULIN GLARGINE SOLOSTAR 100 UNITS/ML 3 ML PEN SQ SCH (21:46)
--- NOTE | 2018-12-04 23:10 | Consultation Report ---
DATE OF CONSULTATION: 12/04/2018 PERTINENT HISTORY: This is an 83-year-old female seen at the request of Dr. Sly Ramsay and Dr. Chadwick Jefferson and SEYMOUR Wilkinson for right heel abscess, neuropathic ulcer of the heel. The patient had presented with left arm and back pain, started night before. She had similar pain the night of admission after dinner. Pain is severe left arm into the hand involves her back to the shoulder blades, resolved after receiving nitroglycerin in the Emergency Department. Association of vomiting prior to admission. She was admitted to the hospital for further care and management. She had ongoing issues with a right heel ulcer, which she is being cared for by the wound clinic. She has not had an MRI after admission, demonstrated osteitis of the calcaneus with phlegmon, fluid collection with likely abscess adjacent to the ulceration in her right heel. Orthopedics was asked to see the patient at that time. PAST MEDICAL HISTORY: Reflux, diabetes mellitus, CVA x2 with foot drop, hypertension, hyperlipidemia, anemia secondary to chronic kidney disease, CKD grade III, stage II ulceration of the right heel, non-ST elevated myocardial infarction, acute [place], stage II pressure ulcer of buttock, obstructive sleep apnea, spinal stenosis, right carotid artery stenosis, anxiety and depression, chronic vertigo, clotting disorder, gastritis, diastolic dysfunction, hypokalemia, memory loss, nephropathy, osteoarthritis, polyarthritis, resting tremors, lumbar radiculopathy on the right, urinary frequency, vitamin D deficiency, weight disorder, cataracts. PAST SURGICAL HISTORY: Hysterectomy, cholecystectomy, cataract replacement T&A. ALLERGIES: ACETAMINOPHEN, sweating; AMITRIPTYLINE, blur double vision; CIPRO, itchiness and red streaking; GABAPENTIN, shakes and vision changes; GUAIFENESIN, unknown; LATEX, skin rash; MELOXICAM, diarrhea; METFORMIN, hot flashes; METRONIDAZOLE, unknown; PENICILLINS, unknown; PIOGLITAZONE, sore throat; PREGABALIN, dizziness, sleepiness; ROFECOXIB, unknown; ROSUVASTATIN, unknown; SIMVASTATIN, unknown; SULFA, hives; TRAMADOL, sweating; TRICYCLIC ANTIDEPRESSANTS, unknown. MEDICATIONS: Please note the extensive list present in the medical record. SOCIAL HISTORY: Denies tobacco, alcohol or drug use. She is retired. She lives with her spouse. She is . PHYSICAL EXAMINATION: The right lower extremity demonstrates heel ulcer measured approximately 1.5 cm in diameter. There is an area of fluctuance with palpation, local swelling, erythema, moderate tenderness to palpation. She has bilateral foot drop. She has waffle boots. After removal of the dressings, ulceration was visualized. Area of ulcer with hypertrophic rim. No streaking or redness. Dorsalis pedis and posterior pulses are palpable. Radiographs and MRI reviewed demonstrating phlegmon adjacent to the area of enhancement within the calcaneus consistent with osteitis. Soft tissue ulceration is also noted. IMPRESSION: 1. Right foot abscess adjacent to the calcaneus. 2. Calcaneal osteitis. 3. Neuropathic ulcer of the heel, 1.5 cm in diameter. RECOMMENDATION: The patient should be made n.p.o. for planned surgical incision and drainage of abscess with debridement adjacent to the calcaneal osteitis when stable as determined by the cardiology and internal medicine teams. Continue with IV antibiotics as directed. Plan on surgical incision and drainage with debridement of the right foot abscess When stable. Thank you for the opportunity to consult in care of this patient. ANDRES
[2018-12-05 01:35] LABS: Hematocrit (blood only) 25.1 % (37-47); Hemoglobin 7.9 g/dL (12.0-16.0); Mean Corpuscular Hemoglobin 30.5 pg (25-34); Mean Corpuscular Hgb Conc 31.5 g/dL (32-36); Mean Corpuscular Volume 96.9 fL (80-100); Mean Platelet Volume 9.6 fL (7.4-10.4); Platelet Count 257 K/uL (130-400); RDW Coefficient of Variation 13.8 % (11.5-14.5); RDW Standard Deviation 48.1 fL (36.4-46.3); Red Blood Count 2.59 M/uL (4.2-5.4); White Blood Count 8.81 K/uL (4.8-10.8)
[2018-12-05 01:48] LABS: Partial Thromboplastin Ratio 1.4; Partial Thromboplastin Time 37.9 Seconds (21.0-31.0)
[2018-12-05 01:51] LABS: BUN Creatinine Ratio 19.9 (10-20); Calcium 7.9 mg/dl (8.5-10.1); Creatinine Clr Calc Pharmacy 23.9 ml/min; Est GFR (African American) 33.2; Est GFR (Non-African American) 28.6; Potassium 4.8 mmol/L (3.5-5.1)
[2018-12-05] MEDS ORDERED: HEPARIN IV BOLUS 4,000 UNITS in SYRINGE 0 ML IV ONE (02:04)
[2018-12-05] MEDS: INSULIN ASPART 100 UNITS/ML 3 ML PEN SC SCH ×4 (08:41→21:17)
[2018-12-05] MEDS ORDERED: fentaNYL citrate 100 MCG/2 ML VIAL IV STA (08:43)
[2018-12-05] MEDS ORDERED: fentaNYL citrate 100 MCG/2 ML VIAL ONE (08:47)
[2018-12-05] MEDS: ISOSORBIDE MONO EXTENDED REL 30 MG TABCR PO SCH (09:10)
[2018-12-05] MEDS: CLOPIDOGREL BISULFATE 75 MG TAB PO SCH (09:10)
[2018-12-05] MEDS: TOPIRAMATE 25 MG TAB PO SCH (09:11)
[2018-12-05] MEDS: PANTOprazole 40 MG TAB PO SCH (09:11)
[2018-12-05] MEDS: GABAPENTIN 100 MG CAP PO SCH (09:11)
[2018-12-05] MEDS: CHOLECALCIFEROL 1,000 UNITS TAB PO SCH (09:11)
[2018-12-05] MEDS: ATORVASTATIN 40 MG TAB PO SCH (09:11)
[2018-12-05] MEDS: ASPIRIN 81 MG ECTAB PO SCH (09:11)
[2018-12-05 09:18] LABS: Partial Thromboplastin Time 55.2 Seconds (21.0-31.0)
[2018-12-05] MEDS ORDERED: SODIUM CHLORIDE 0.9% 250 ML IV PRN (09:34)
[2018-12-05] MEDS: METOPROLOL TARTRATE 25 MG TAB PO SCH (10:19)
--- NOTE | 2018-12-05 10:40 | Cardiology Progress Note ---
Date of Service December 05, 2018 Assessment & Plan (1) Chest pain: She has recurrent chest discomfort which may well be anginal. I certainly do not think she should go to the [facility], there are no acute electrocardiographic changes although her electrocardiogram is abnormal and this certainly could be ischemia. Other than an ST segment elevation myocardial infarction (in which case we still may not take her to the lab) I would not consider invasive evaluation. There is little that can be done with intervention, and I am not sure bypass surgery is an option now that she has had new occipital strokes. I would therefore adjust her antianginals, as our discussion with neurology we have to be careful about her blood pressure but I would go up a little bit on her beta-eileen and add or increase other antianginals as needed. I agree that discontinuing aspirin now that she is on heparin and clopidogrel may be a reasonable approach. (2) CVA (cerebral vascular accident): She has a history of CVA and now has new occipital strokes. I discussed this at length with neurology and medicine, from the cardiovascular standpoint this may alter our approach regarding bypass surgery but that really was not planned in any case. If her symptoms cannot be controlled and we do contemplate bypass surgery it would certainly have to wait. Subjective Events of the last several days reviewed, she has now had occipital strokes affecting her vision and she is having difficulty with chest discomfort this morning, now resolved. This has the characteristic of angina. Physical Exam Physical Exam: Constitutional: Alert, cooperative and in mild distress. Pulmonary: Clear to auscultation bilaterally. Cardiac: Regular rhythm with no murmur, gallop or rub. Abdomen: Soft, nontender with normal bowel sounds. Extremities: No edema. Foot bandaged Results & Data Vital Signs (Past 12 Hours) Vital Signs Temp Pulse Pulse Resp BP BP Pulse Ox 12/05/18 09:02 143/62 H 12/05/18 07:15 36.7 C 72 18 152/71 H 93 12/05/18 03:28 36.5 C 65 20 150/70 H 98 12/05/18 00:00 36.9 C 64 61 16 127/88 99 Laboratory Results Abnormal lab results 12/04/18 12/04/18 12/04/18 Range/Units 11:25 16:18 21:07 RBC (4.2-5.4) M/uL Hgb (12.0-16.0) g/dL Hct (37-47) % MCHC (32-36) g/dL RDW Std Deviation (36.4-46.3) fL APTT (21.0-31.0) Seconds Chloride (98-107) mmol/L BUN (7-18) mg/dl Creatinine (0.6-1.2) mg/dl Glucose (70-99) mg/dl POC Glucose 143 H 102 H 123 H (70-99) Calcium (8.5-10.1) mg/dl Troponin I (0-0.045) ng/ml Crossmatch 12/05/18 12/05/18 12/05/18 Range/Units 01:14 01:14 01:14 RBC 2.59 L (4.2-5.4) M/uL Hgb 7.9 L (12.0-16.0) g/dL Hct 25.1 L (37-47) % MCHC 31.5 L (32-36) g/dL RDW Std Deviation 48.1 H (36.4-46.3) fL APTT 37.9 H (21.0-31.0) Seconds Chloride 110 H (98-107) mmol/L BUN 33 H (7-18) mg/dl Creatinine 1.65 H (0.6-1.2) mg/dl Glucose 108 H (70-99) mg/dl POC Glucose (70-99) Calcium 7.9 L (8.5-10.1) mg/dl Troponin I (0-0.045) ng/ml Crossmatch 12/05/18 12/05/18 12/05/18 Range/Units 07:14 08:43 08:43 RBC (4.2-5.4) M/uL Hgb (12.0-16.0) g/dL Hct (37-47) % MCHC (32-36) g/dL RDW Std Deviation (36.4-46.3) fL APTT 55.2 H* (21.0-31.0) Seconds Chloride (98-107) mmol/L BUN (7-18) mg/dl Creatinine (0.6-1.2) mg/dl Glucose (70-99) mg/dl POC Glucose 108 H (70-99) Calcium (8.5-10.1) mg/dl Troponin I 0.950 H* (0-0.045) ng/ml Crossmatch 12/05/18 Range/Units 08:43 RBC (4.2-5.4) M/uL Hgb (12.0-16.0) g/dL Hct (37-47) % MCHC (32-36) g/dL RDW Std Deviation (36.4-46.3) fL APTT (21.0-31.0) Seconds Chloride (98-107) mmol/L BUN (7-18) mg/dl Creatinine (0.6-1.2) mg/dl Glucose (70-99) mg/dl POC Glucose (70-99) Calcium (8.5-10.1) mg/dl Troponin I (0-0.045) ng/ml Crossmatch See Detail Diagnostic Findings Echocardiogram December 04, 2018: Normal left ventricular size with mild left ventricular hypertrophy, mild left ventricular dysfunction with an ejection fraction of 40 to 45% and wall motion abnormalities, similar to December 02, 2018 electrocardiogram: This morning sinus rhythm with anterolateral T wave inversion and some ST elevation. Similar to prior electrocardiograms this admission however. PG Care Time/CCT Total # of Minutes Spent Total Time Spent with Patient: Total time spent is greater than 50% in coordination of care (as documented) at patient's floor/unit and/or counseling patient:
--- NOTE | 2018-12-05 10:43 | Neurology Consultation ---
Date of Consultation December 05, 2018 Assessment & Plan (1) CVA (cerebral vascular accident): (2) Vertebral artery stenosis with cerebral infarction: (3) Hemianopia, homonymous, left: (4) Diabetic polyneuropathy: (5) Essential tremor: (6) Mild cognitive impairment: (7) Chronic cerebral ischemia: (8) HTN (hypertension): This patient is quite complicated and has multiple neurologic issues. 1) December 04, she had acute bilateral (right greater than left) occipital strokes, with a small left cerebellar hemispheric lesion also. The etiology of this is likely her distal vertebro/basilar disease (which has been known about since the early 1999s). The left distal vertebral is likely occluded. Embolic stroke from the heart cannot be excluded. She was already on Plavix. Clinically she has a dense left homonymous hemianopia. Her vision is improved to the right and she is seeing fairly well to the right. She has no other focal neurologic deficits that I can ascertain on exam today. She has no meningeal signs and no encephalopathy. She has risk factors for stroke including longstanding hypertension, diabetes, sleep apnea, and more recently anemia. Her anemia is significant and may contribute to stroke extension. She has known moderate chronic old cerebral ischemia with history of previous strokes as far back as 1995. Continuing Plavix is reasonable and I see no indication for adding aspirin since heparin was initiated. She has significant cardiac issues and high risk of further cardiac ischemia. 2) The patient also has a history of essential tremor which is currently relatively stable and requires no additional testing or treatment. 3) She has severe diabetic polyneuropathy and bilateral footdrop from this. These problems are chronic and stable. She has a diabetic foot ulcer as well. 4) Patient has chronic mild cognitive impairment which is stable. Recommendations: 1. I recommend treating anemia with transfusion, trying to bring the hemoglobin up to closer to 10. This will reduce risk of further stroke and heart issues. 2. Consider CPAP at night but she is on nasal oxygen which will help. 3. Control blood pressure as you are doing aiming for a mean arterial pressure of approximately 95-100. However, if Cardiology needs a lower blood pressure, try to keep mean arterial pressure between 90 and 95. 4. Hemoglobin A1c was 6.4, she could probably use a little better glucose control trying to get the A1c closer to 6.0. 5. Fasting lipid profile if not already obtained. 6. Continue clopidogrel 75 milligrams daily. 7. Continue heparin for now. There is a risk of hemorrhagic transformation of the stroke but we are also treating cardiac issues. 8. Increase activity as able. Overall, I spent a total of 120 minutes with this case including review of records, review of MRI films, direct evaluation the patient at bedside, and discussing the case with the patient at bedside, her spouse and the RN who were both at bedside, and Drs. Shaw and Jaxson, including differential diagnosis and treatment options. History of Present Illness Reason for Consultation: Patient is an 83-year-old, who I was asked to see the request of Dr. Jefferson, for neurologic consultation regarding stroke Requesting Physician: Dr. Jefferson Attending Physician: Idalia Shaw MD History of Present Illness This patient had to lacune or type strokes back in 1995 which resulted in some right-sided weakness and speech issues. She improved over time. Around 2002 she was put on Coumadin at [facility] because of posterior circulation (vertebral artery) stenoses and the risk of stroke. Apparently an MRI at that time showed bilateral pontine strokes and old diffuse ischemia with an MR angiography of the [place] which was unremarkable. After 5 years or so the Coumadin was discontinued because of a GI bleed and she was put on Plavix. She has remained on Plavix since. I 1st saw this patient in June of 2013. She was on Plavix for years and was stable from a cerebral vascular standpoint. MRI at that time showed old diffuse white matter and other ischemia of a moderate nature with generalized atrophy. At that time, she was having weakness and numbness in her feet, urinary incon tinence, tremor, and fatigue. She also had diffuse osteoarthritis. She was having some memory. She was diagnosed with mild cognitive impairment and a benign essential tremor. She has had side effects/allergies to gabapentin and pre SANDRA Zo. She was already on a beta-eileen metoprolol so propranolol was not given. In addition the patient had longstanding diabetes and she was diagnosed with a severe diabetic polyneuropathy. Since 2011 she was getting bilateral foot drop. EMG and nerve conduction studies at that time showed the severe polyneuropathy but no lumbosacral radiculopathy. The tremor was treated with 25 milligrams of topiramate which helped some. We last saw her in December of 2016 and she remained on Plavix and topiramate as before. She has diagnoses of sleep apnea (for which she takes CPAP), hypertension, diabetes, and stage 3 kidney disease. Patient was admitted December 01 for episodes of left upper extremity and chest pain with sweating, nausea, and vomiting. These episodes are worse with exertion. She was taken to cardiac catheterization on December 02 and was found to have left ventricular dysfunction and apical wall abnormalities with a low ejection f raction. She has coronary artery disease particularly in the LAD comma not easily fixed. She is followed closely by Cardiology. The patient woke on the morning of December 04 not be able to see diffusely, bilaterally. MRI of the brain showed bioccipital right greater than left strokes of an acute nature with a small left cerebellar hemisphere stroke as well. CT angiography of the head was largely unremarkable except for distal left vertebral stenosis/occlusion. CT angiography of the neck showed a less than 60 percent stenosis of the right internal carotid artery. Repeat echocardiogram showed no evidence of thrombus. CBC showed significant anemia this morning with a hemoglobin of 7.9 and hematocrit of 25. BUN is elevated at 33 and creatinine is 1.65. She has no cardiac dysrhythmia since admission is normal sinus rhythm in the 60s to 70s. Patient has a right foot ulcer likely diabetic. This morning she has no complaint of pain or headache. She is not dizzy. Her vision is markedly improved and she can see the clock on the wall today. She is quite fatigued. She has no new weakness or numbness of the limbs. Allergies Allergy/AdvReac Type Severity Reaction Status Date / Time acetaminophen Allergy Unknown SWEATING Verified 12/01/18 22:36 amitriptyline Allergy Unknown BLURRED Verified 12/01/18 22:36 DOUBLE VISION Cipro Allergy Unknown itshiness,red Verified 06/25/16 17:42 streak ciprofloxacin Allergy Unknown itshiness,red Verified 12/01/18 22:36 streak gabapentin Allergy Unknown SHAKES,VISION Verified 12/01/18 22:36 CHANGES guaifenesin Allergy Unknown UNKNOWN Verified 12/01/18 22:36 latex Allergy Unknown SKIN GETS Verified 12/01/18 22:36 RAW-PT HAS NO RECOLLECTION meloxicam Allergy Unknown DIARRHEA Verified 12/01/18 22:36 metformin Allergy Unknown HOT FLASHES Verified 12/01/18 22:36 metronidazole Allergy Unknown UNKNOWN Verified 12/01/18 22:36 Penicillins Allergy Unknown INJECTION Verified 11/23/18 09:16 UNKNOWN pioglitazone Allergy Unknown SORE Verified 11/23/18 09:16 THROAT,EAts excessively pregabalin Allergy Unknown DIZZINESS, Verified 11/23/18 09:16 SLEEPY rofecoxib Allergy Unknown UNKNOWN Verified 11/23/18 09:16 rosuvastatin Allergy Unknown UNKNOWN Verified 11/23/18 09:16 simvastatin Allergy Unknown UNKNOWN Verified 11/11/18 10:30 Sulfa (Sulfonamide Allergy Unknown HIVES Verified 11/11/18 10:30 Antibiotics) tramadol Allergy Unknown SWEATING Verified 11/11/18 10:30 Tricyclic Antidepressants Allergy Unknown UNKNOWN Uncoded 11/11/18 10:30 Home Medications Home Medications Medication Instructions Recorded Confirmed Type atorvastatin 40 mg tablet 40 mg PO QAM tab 06/28/18 12/01/18 History clopidogrel 75 mg tablet 75 mg PO DAILY 06/28/18 12/01/18 History furosemide 20 mg tablet 20 mg PO BID 06/28/18 12/01/18 History insulin aspart (U-100) 100 unit/mL 4 - 6 units SQ TIDM ml 06/28/18 12/01/18 History (3 mL) subcutaneous pen insulin glargine (U- 100) 100 12 units SQ HS ml 06/28/18 12/01/18 History unit/mL subcutaneous solution metoprolol tartrate 75 mg tablet 75 mg PO BID 06/28/18 12/01/18 History tramadol 50 mg tablet 50 mg PO Q8H PRN 10/19/18 12/01/18 History blood sugar diagnostic strips #10 ea 11/05/18 12/01/18 History topiramate 25 mg tablet 25 mg PO DAILY #30 tab 11/05/18 12/01/18 History cholecalciferol (vitamin D3) 1,000 unit PO DAILY 12/01/18 12/01/18 History [Vitamin D3] gabapentin 100 mg PO DAILY 12/01/18 12/01/18 History lisinopril 10 mg PO DAILY 12/01/18 12/01/18 History pantoprazole [Protonix] 40 mg PO DAILY 12/01/18 12/01/18 History Patient History Medical History Chronic kidney disease, stage 3 (Chronic) HTN (hypertension) (Chronic) Diabetes mellitus with diabetic polyneuropathy (Acute) Ulcer of right heel (Acute) Anxiety associated with depression (Chronic) Benign recurrent vertigo (Chronic) Bilateral foot-drop (Chronic) Blood clotting disorder (Chronic) Chronic GERD (Chronic) Diabetes mellitus type 2 with complications, uncontrolled (Chronic) Gastritis (Chronic) H/O diastolic dysfunction (Chronic) H/O: CVA (cerebrovascular accident) (Chronic) Hyperlipidemia (Chronic) Hypokalemia (Chronic) Memory loss (Chronic) Nephropathy (Chronic) Neurologic gait dysfunction (Chronic) Osteoarthritis (Chronic) Polyarthritis (Chronic) Resting tremor (Chronic) Right lumbar radiculopathy (Chronic) Sleep apnea (Chronic) Stenosis of right carotid artery (Chronic) Urinary frequency (Chronic) Vitamin D deficiency (Chronic) Weight disorder (Chronic) Cataract (Resolved) Cholecystectomy planned (Resolved) H/O: hysterectomy (Resolved) Surgical History S/P cholecystectomy S/P hysterectomy S/P tonsillectomy Hx of tonsillectomy (Resolved) Family History Mother , in her 80s of a cerebral aneurysm Heart disease Stroke Tremor Father , in his 80s of heart disease Heart disease Other No pertinent family history Social History Preferred Language: Welsh Communication Ability: Effective Visual Impairment: No Limitations Hearing Ability: Hard of Hearing [employer]visor [employer] Sanitation Required: No Beliefs That Will Affect Care: None marital status: Current Living Situation: Spouse current occupational status: retired Other Information That Helps Us Care for You: No other: 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 [employer] Feels Safe at Home: Yes Safety Concerns: Feels Safe At This Time Smoking Status: Never smoker Do You Dip or Chew Tobacco: No ; Hx Alcohol Use: No Hx Substance Use: No Review of Systems Constitutional: + fatigue; no fever and no weakness Eyes: + blind spots, + loss of peripheral vision and + worsening vision; no diplopia and no eye pain Ear, Nose, Mouth, Throat: + hearing loss; no ear pain, no tinnitus, no dizziness, no snoring, no hoarseness and no dysphagia Respiratory: no cough and no dyspnea Cardiovascular: no chest pain, no palpitations and no lightheadedness Gastrointestinal: no abdominal pain, no nausea and no vomiting Genitourinary: no dysuria, no urinary frequency and no urinary incontinence Musculoskeletal: + joint pain; no back pain, no neck pain, no radicular pain and no myalgia Integumentary: no rash and no lesions Neurologic: + localized weakness, + numbness, + tremor(s) and + memory loss; no gait abnormality, no generalized weakness, no tingling, no abnormal movements, no headache(s), no abnormal speech and no confusion Psychiatric: no depression, no irritability, no anxiety, no difficulty concentrating, no confusion and no hallucinations Endocrine: + fatigue; no flushing Hematologic / Lymphatic: + easy bruising; no easy bleeding Allergy / Immunological: no urticaria and no problem reported Physical Exam Physical Exam: The patient is right-handed. The patient is awake, alert, and attentive. Speech is normal without any aphasia or dysarthria. She can name objects, repeat phrases, and has normal spontaneous speech. Mentation and thought processes are intact, with orientation to person, place and time, except she could not state the year. She knew the president, simple calculations, the day of the week, and left from right. Attention and concentration are normal. Mood and affect are normal and appropriate. General appearance and grooming are normal. Short and long-term memory are reasonable to conversation but she does have impairments. The discs are sharp with positive venous pulsations bilaterally. There are no exudates, hemorrhages, or blood vessel changes seen. Pupils are 3 mm bilaterally and reactive to light. Extraocular eye muscles are intact without nystagmus. She has a dense left homonymous hemianopsia present. She can see reasonably well to the right but has corrective lenses. There are no deficits to sensation in the face in all 3 distributions of the fifth cranial nerve bilaterally. Corneal reflexes are positive bilaterally. Facial strength and symmetry was normal bilaterally. Hearing is decreased bilaterally. Palate moves well without asymmetry. There is normal sternocleidomastoid and trapezius (shoulder shrug) strength bilaterally. Tongue is midline with good strength bilaterally. Neck has a full range of motion without discomfort. There are no cervical bruits bilaterally. There are no cranial or ocular bruits. Heart is without murmur. There is a regular rhythm and rate. Cervical, thoracic, and lumbar spine are nontender to palpation. Gait is not tested and stance sitting up in bed is poor. With outstretched arms there is no drift. There are no resting tremors. There are mild, left greater than right, postural and action tremor bilaterally. There is no ataxia with finger to nose testing. There is decreased facility in the hands, mostly because of significant arthritic/joint deformity bilaterally. No other abnormal involuntary movements are noted. Motor strength is 4+/5 diffusely in the arms bilaterally including deltoids, biceps, triceps, brachioradialis, wrist flexors and extensors, braille operator, and intrinsic hand muscles. Motor strength is 4+/5 diffusely in the legs bilaterally including hip flexors, quadriceps, and hamstrings. Tibialis anterior, toe flexor and extensors, and gastrocnemius muscles are 1/5 bilaterally. The limbs have good tone without rigidity or spasticity. There is atrophy noted in the distal muscles of the hands and feet. There is no tenderness to palpation, no myotonia to percussion, and no fasciculations seen. Sensory examination reveals a significant stocking decreased pin and touch loss to the mid lower legs bilaterally. Hands are relatively spared. Reflexes are 0/4 in the biceps, triceps, brachioradialis, quadriceps, and Achilles tendons bilaterally. There is no clonus bilaterally. Toes are neutral to downgoing with plantar stimulation bilaterally. Peripheral pulses are decreased in the legs. There is no peripheral edema noted in the limbs. Results & Data Vital Signs (Past 12 Hours) Vital Signs Temp Pulse Pulse Resp BP BP Pulse Ox 12/05/18 09:02 143/62 H 12/05/18 07:15 36.7 C 72 18 152/71 H 93 12/05/18 03:28 36.5 C 65 20 150/70 H 98 12/05/18 00:00 36.9 C 64 61 16 127/88 99 Diagnostic Findings MRI OF THE BRAIN WITHOUT CONTRAST CLINICAL HISTORY: Left-sided hemicord. Suspected acute stroke. COMPARISON STUDY: July 2013 FINDINGS: Sagittal T1, axial diffusion, proton density and T2 weighted axial, coronal FLAIR, and axial T1-weighted images were acquired. No intra or extra-axial mass lesions are visualized There are extensive foci of restricted water diffusion involving both occipital lobes. There is also a focus of restricted water diffusion within the left cerebellar hemisphere. The findings are indicative of acute/subacute infarct There is mild ventricular dilatation, likely secondary to volume loss Proton density T2-weighted and FLAIR images reveal moderately extensive foci of increased T2 signal within the white matter, likely on a small vessel basis. In addition there are foci of increased FLAIR signal within the temporal lobes, corresponding to the acute/subacute infarcts. There are old lacunar infarcts within the lotus. There are no abnormal flow voids. There are bilateral mastoid effusions. IMPRESSION: 1. Acute posterior circulation stroke with moderately extensive foci of restricted water diffusion involving both occipital lobes. There is also focus of restricted water diffusion left cerebellar hemisphere. The findings are indicative of acute/subacute bilateral infarcts Electronically signed by: Dru Harmno M.D. 12/04/2018 1:58 PM PG Care Time/CCT Total # of Minutes Spent Total Time Spent with Patient: Total time spent is greater than 50% in coordination of care (as documented) at patient's floor/unit and/or counseling patient:
[2018-12-05] MEDS: METOPROLOL TARTRATE 50 MG TAB PO SCH ×2 (11:30→21:16)
--- NOTE | 2018-12-05 15:15 | Orthopedic Progress Note ---
Date of Service December 05, 2018 Assessment & Plan (1) Neuropathic ulcer of right foot: Continue use of waffle boots and dressing changes as appropriate. Nonweightbearing right heel. Present on Admission?: Yes (2) Abscess of right foot: We will plan for operative incision and drainage of abscess with debridement of phlegmon when the patient is deemed stable for surgery by the medical team and the cardiology team. Present on Admission?: Yes Subjective Patient has no new complaints. Family members present at bedside. Physical Exam Physical Exam: Waffle boots and soft dressing intact on lower extremity. No drainage noted through dressing. Toes pink and warm. Sensory exam bilateral lower extremities unchanged. Results & Data Vital Signs (Past 12 Hours) Vital Signs Temp Pulse Pulse Resp BP BP BP 12/05/18 15:02 36.9 C 56 L 16 148/77 H 12/05/18 14:10 37 C 57 L 16 108/61 12/05/18 13:40 36.9 C 56 L 18 116/53 L 12/05/18 12:40 36.5 C 56 L 16 104/59 L 12/05/18 12:10 36.9 C 58 L 18 107/54 L 12/05/18 11:55 37.1 C 68 18 120/70 12/05/18 11:37 36.9 C 71 18 105/60 12/05/18 09:02 143/62 H 12/05/18 07:15 36.7 C 72 18 152/71 H 12/05/18 03:28 36.5 C 65 20 150/70 H Pulse Ox 12/05/18 15:02 100 12/05/18 14:10 100 12/05/18 13:40 100 12/05/18 12:40 100 12/05/18 12:10 99 12/05/18 11:55 12/05/18 11:37 98 12/05/18 09:02 12/05/18 07:15 93 12/05/18 03:28 98
--- NOTE | 2018-12-05 16:58 | Ultrasound Report ---
ULTRASOUND RIGHT LOWER EXTREMITY ARTERIAL; ANKLE-BRACHIAL INDICES CLINICAL HISTORY: Right heel ulcer. COMPARISON STUDY: No priors. TECHNIQUE: Real-time, grayscale, and color Doppler sonography of the right lower extremity arteries i s performed from the inguinal crease to the foot. Ankle-brachial indices are calculated. FINDINGS: Ankle brachial apices: Right brachial pressure measures 150 and left brachial pressure measures 143. Pressures in the right posterior tibial artery measure 71 for an RAJAT of 0.47. The right dorsalis pedi s artery was noncompressible. Left posterior tibial artery pressures measure 121 for an RAJAT of 0.81, and left dorsalis pedis artery pressures measure 98 for an RAJAT of 0.65. Right lower extremity: There are triphasic arterial waveforms identified in the right common femoral artery with velocities measuring up to 76 cm/s. The profundus femoris artery is patent with velocitie s measuring up to 63 cm/s. There are triphasic arterial waveforms seen throughout the superficial fem oral artery with velocities measuring up to 153 cm/s. The popliteal artery is patent with biphasic to triphasic arterial waveforms. Velocities within the proximal popliteal artery measure up to 60 cm/s. There are elevated velocities within the distal popliteal artery, measuring up to 183 cm/s, suggesti ng focal stenosis. There is three-vessel runoff to the foot. Velocities in the peroneal artery measur e up to 46 cm/s, velocities in the posterior tibial artery measure up to 74 cm/s, and velocities with in the anterior tibial artery measure up to 84 cm/s. The dorsalis pedis artery is patent with velocit ies measuring up to 11 cm/s. IMPRESSION: 1. No focal vessel occlusion is identified throughout the arteries of the right lower extremity. Ther e is three-vessel runoff to the foot. 2. There are focally elevated velocities within the distal popliteal artery, suggesting stenosis. 3. Ankle-brachial indices as above. Dictated: 12/05/2018 4:48 PM Transcribed: 12/05/2018 4:54 PM Patricia [id number] ALEJO_[email or web address] Electronically signed by: David Torres M.D. 12/05/2018 4:57 PM
--- NOTE | 2018-12-05 18:47 | Hospitalist Progress Note ---
Date of Service December 05, 2018 Assessment & Plan (1) Acute [place]: Presented with NSTEMI. Troponin peaked at 14 on admission, and then downtrending since. With 2 episodes of left-sided chest pain with radiation on the left arm each on the mornings of 12/04 and 12/05, self resolving Troponin on 12/05 is 0.9 and 0.8, ECG remains with diffuse inferolateral T wave inversions similar to previous Echocardiogram 12/04 with LVEF 40-45%, apical and mid septal akinesis, hypokinetic mid anterior, mid anteroseptal kumar, no LV thrombus Appreciate cardiology consultation - Cardiac cath on 12/02 showed diffuse disease -> Culprit for [place] thought to be a transient LAD lesion vs. stress-induced cardiomyopathy - Finished heparin gtt on 12/03, was then restarted for ongoing angina and possible embolic CVA on 12/04---> now troponin continues to trend downward--> dc heparin gtt now to reduce risk of hemorrhagic conversion - Continue ASA & Plavix for medical management of severe CAD, but also for acute CVA - Continue beta-eileen and increase dose to 100 mg p.o. twice daily for antianginal effect, continue statin - Started Imdur 30 mg daily on 12/04 - Start ACEi when renal function is stable & BP tolerates-allowing permissive hypertension for now due to acute CVA so will not add at this time -If continues to have refractory anginal symptoms, cardiology to consider intervention on ostial RCA lesion but would be high risk (2) CVA (cerebral vascular accident): Hx of CVA and previously on Plavix. She was at Coumadin at some point in the past for vertebral artery stenosis but was discontinued when she had a GI bleed. 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 The left distal vertebral is likely occluded. Embolic stroke from the heart cannot be excluded but there is no thrombus seen on limited repeat echocardiogram. She has no atrial fibrillation or flutter on telemetry. The timing of her stroke is a little remote from her cardiac catheterization and therefore is not likely to have been secondary to a complication of that. Clinically she has a dense left homonymous hemianopia as per neuro but is somewhat improved today - Continue Plavix, aspirin, statin -Discontinuing heparin drip as above -Permissive hypertension at this point, but increasing metoprolol as above for antianginal effect, will watch blood pressures and try to keep MAP greater than 90-95 -Appreciate neurology consultation -PT/OT/speech therapy all ordered -Monitor for hemorrhagic conversion and/or new strokes (3) Vision changes: Secondary to acute occipital lobe CVAs as above (4) Diabetic foot ulcer associated with type 2 diabetes mellitus: Likely osteitis R foot with possible developing abscess/phlegmon. MRI foot on 12/02 showed a partially loculated fluid collection which abuts the cortex of the calcaneus and measures approximately 1.3 cm. - Cefepime was stopped on 12/03 because all culture are growing Gram(+) organisms -Wound culture growing Enterococcus faecalis and coag negative staph -Continue IV daptomycin but ID thinks could be switched to amoxicillin however penicillin is listed as an unknown allergy - Ortho and ID consulted - Appreciate assistance-orthopedics recommending surgical incision and drainage, however remains high risk at this time due to recent and STEMI and acute CVA - Continue daptomycin; monitor CK while on dapto and statin -Appreciate orthopedic consultation (5) Anemia: Likely secondary to chronic disease and kidney disease. Hemoglobin was 9.7 on admission and now is down to 7.9. Per outside lab was 9.3 in November 16, 2018. MCV is borderline macrocytic -Given recent NSTEMI and acute CVA, as per discussion with cardiology and neurology, will transfuse 2 units PRBCs today -Follow CBC in the morning -Check B12 and folate in the morning -Order fecal occult blood (6) Chronic kidney disease, stage 3: Acute kidney failure on CKD. Baseline Cr is unknown, though her Cr. has trended down from 2.4 on admission down to 1.65. -Continue to hold home lisinopril - Monitor BMP -Holding home furosemide (7) Peripheral arterial disease: Has some evidence of decreased ABIs on testing here, arterial Doppler of the right lower extremity with focal stenosis in the distal popliteal artery, however has good three-vessel runoff to the foot -Continue aspirin, Plavix, statin (8) Stage II pressure ulcer of buttock: Wound care following (9) HTN (hypertension): Allowing permissive hypertension with goal MAP 95 -Holding home lisinopril and furosemide -Increase metoprolol to 100 mg p.o. twice daily as above -Follow blood pressures (10) Hyperlipidemia: - Continue statin (11) ERNST (obstructive sleep apnea): Will order CPAP nightly (12) DVT prophylaxis: Heparin drip discontinued today We will start heparin SQ tomorrow Disposition-remain on PCU/telemetry Subjective Patient had sudden onset of left-sided chest pain that radiated down her arm that she reported was 10/10 in severity this morning. It was not associated with diaphoresis or nausea. I ordered fentanyl and went to see the patient. By the time I got there, her pain had already resolved. It had come on at rest sitting in the bed and went away with rest sitting in the bed. RN reports that the patient had similar chest pain yesterday that also was brief and went away on its own. The patient reports her vision is somewhat improved today and she is now able to see the clock on the wall again whereas she could not see it yesterday. She has some pain in the heel. I discussed the case at length with both cardiology and neurology today. ECG showed T wave inversions in the inferolateral leads similar to previous. Troponin was only minimally elevated and downtrending on serial checks today after her chest pain. Later in the day, after discussion with cardiology again and after troponins were not significantly elevated, decision was made to stop the heparin drip as she was not having an NSTEMI and her risk for hemorrhagic conversion into her recent acute ischemic CVAs is high. Telemetry with normal sinus rhythm with rates in the 60s to 70s. Review of Systems Review of Systems: All systems reviewed & are unremarkable except as noted in HPI & below Physical Exam Constitutional: well developed; no acute distress Eyes: + anicteric sclerae; + abnormal visual field confrontation Neck: trachea midline, no thyromegaly Respiratory: normal respiratory effort, lungs clear to auscultation Cardiovascular: RRR, no murmur, no edema Chest (Breasts): Chest: normal inspection of chest (no TTP over chest wall) Gastrointestinal (Abdomen): normal bowel sounds, soft, nontender, no hepatosplenomegaly Musculoskeletal: Extremities: extremities normal to inspection; no cyanosis and no clubbing Skin: + wound (Right medial heel with open ulcer approximately 2 x 2 cm, mild tenderness to palpation and mild surrounding erythema) Neurologic: moves all extremities (except bilat foot drop) and awake Psychiatric: A+Ox3, euthymic affect Results & Data Vital Signs (Past 12 Hours) Vital Signs Temp Pulse Pulse Resp BP BP BP 12/05/18 17:40 36.5 C 58 L 19 132/85 12/05/18 17:05 36.7 C 61 16 126/82 12/05/18 16:05 36.5 C 59 L 17 128/70 12/05/18 15:35 36.9 C 56 L 18 112/63 12/05/18 15:20 36.3 C L 55 L 15 116/65 12/05/18 15:05 36.4 C L 57 L 16 136/79 12/05/18 15:02 36.9 C 56 L 16 148/77 H 12/05/18 14:10 37 C 57 L 16 108/61 12/05/18 13:40 36.9 C 56 L 18 116/53 L 12/05/18 12:40 36.5 C 56 L 16 104/59 L 12/05/18 12:10 36.9 C 58 L 18 107/54 L 12/05/18 11:55 37.1 C 68 18 120/70 12/05/18 11:37 36.9 C 71 18 105/60 12/05/18 09:02 143/62 H 12/05/18 07:15 36.7 C 72 18 152/71 H Pulse Ox 12/05/18 17:40 100 12/05/18 17:05 99 12/05/18 16:05 100 12/05/18 15:35 99 12/05/18 15:20 100 12/05/18 15:05 97 12/05/18 15:02 100 12/05/18 14:10 100 12/05/18 13:40 100 12/05/18 12:40 100 12/05/18 12:10 99 12/05/18 11:55 12/05/18 11:37 98 12/05/18 09:02 12/05/18 07:15 93 Laboratory Results 12/05/18 12/05/18 12/05/18 Range/Units 16:27 14:45 11:31 WBC (4.8-10.8) K/uL RBC (4.2-5.4) M/uL Hgb (12.0-16.0) g/dL Hct (37-47) % MCV (80-100) fL MCH (25-34) pg MCHC (32-36) g/dL RDW Std Deviation (36.4-46.3) fL RDW Coeff of Ciera (11.5-14.5) % Plt Count (130-400) K/uL MPV (7.4-10.4) fL APTT (21.0-31.0) Seconds PTT Ratio Sodium (136-145) mmol/L Potassium (3.5-5.1) mmol/L Chloride (98-107) mmol/L Carbon Dioxide (21-32) mmol/L Anion Gap (3-11) BUN (7-18) mg/dl Creatinine (0.6-1.2) mg/dl Est Cr Clr Drug Dosing ml/min Est GFR ( Amer) Est GFR (Non-Af Amer) BUN/Creatinine Ratio (10-20) Glucose (70-99) mg/dl POC Glucose 133 H 128 H (70-99) Calcium (8.5-10.1) mg/dl Troponin I 0.816 H* (0-0.045) ng/ml Blood Type Antibody Screen Crossmatch 12/05/18 12/05/18 12/05/18 Range/Units 08:43 08:43 08:43 WBC (4.8-10.8) K/uL RBC (4.2-5.4) M/uL Hgb (12.0-16.0) g/dL Hct (37-47) % MCV (80-100) fL MCH (25-34) pg MCHC (32-36) g/dL RDW Std Deviation (36.4-46.3) fL RDW Coeff of Ciera (11.5-14.5) % Plt Count (130-400) K/uL MPV (7.4-10.4) fL APTT 55.2 H* (21.0-31.0) Seconds PTT Ratio 2.0 Sodium (136-145) mmol/L Potassium (3.5-5.1) mmol/L Chloride (98-107) mmol/L Carbon Dioxide (21-32) mmol/L Anion Gap (3-11) BUN (7-18) mg/dl Creatinine (0.6-1.2) mg/dl Est Cr Clr Drug Dosing ml/min Est GFR ( Amer) Est GFR (Non-Af Amer) BUN/Creatinine Ratio (10-20) Glucose (70-99) mg/dl POC Glucose (70-99) Calcium (8.5-10.1) mg/dl Troponin I 0.950 H* (0-0.045) ng/ml Blood Type O Positive Antibody Screen NEGATIVE Crossmatch See Detail 12/05/18 12/05/18 12/05/18 Range/Units 07:14 01:14 01:14 WBC 8.81 (4.8-10.8) K/uL RBC 2.59 L (4.2-5.4) M/uL Hgb 7.9 L (12.0-16.0) g/dL Hct 25.1 L (37-47) % MCV 96.9 (80-100) fL MCH 30.5 (25-34) pg MCHC 31.5 L (32-36) g/dL RDW Std Deviation 48.1 H (36.4-46.3) fL RDW Coeff of Ciera 13.8 (11.5-14.5) % Plt Count 257 (130-400) K/uL MPV 9.6 (7.4-10.4) fL APTT (21.0-31.0) Seconds PTT Ratio Sodium 138 (136-145) mmol/L Potassium 4.8 (3.5-5.1) mmol/L Chloride 110 H (98-107) mmol/L Carbon Dioxide 21 (21-32) mmol/L Anion Gap 7.0 (3-11) BUN 33 H (7-18) mg/dl Creatinine 1.65 H (0.6-1.2) mg/dl Est Cr Clr Drug Dosing 23.9 ml/min Est GFR ( Amer) 33.2 Est GFR (Non-Af Amer) 28.6 BUN/Creatinine Ratio 19.9 (10-20) Glucose 108 H (70-99) mg/dl POC Glucose 108 H (70-99) Calcium 7.9 L (8.5-10.1) mg/dl Troponin I (0-0.045) ng/ml Blood Type Antibody Screen Crossmatch 12/05/18 12/04/18 Range/Units 01:14 21:07 WBC (4.8-10.8) K/uL RBC (4.2-5.4) M/uL Hgb (12.0-16.0) g/dL Hct (37-47) % MCV (80-100) fL MCH (25-34) pg MCHC (32-36) g/dL RDW Std Deviation (36.4-46.3) fL RDW Coeff of Ciera (11.5-14.5) % Plt Count (130-400) K/uL MPV (7.4-10.4) fL APTT 37.9 H (21.0-31.0) Seconds PTT Ratio 1.4 Sodium (136-145) mmol/L Potassium (3.5-5.1) mmol/L Chloride (98-107) mmol/L Carbon Dioxide (21-32) mmol/L Anion Gap (3-11) BUN (7-18) mg/dl Creatinine (0.6-1.2) mg/dl Est Cr Clr Drug Dosing ml/min Est GFR ( Amer) Est GFR (Non-Af Amer) BUN/Creatinine Ratio (10-20) Glucose (70-99) mg/dl POC Glucose 123 H (70-99) Calcium (8.5-10.1) mg/dl Troponin I (0-0.045) ng/ml Blood Type Antibody Screen Crossmatch Diagnostic Findings Arterial DOppler RLE: ULTRASOUND RIGHT LOWER EXTREMITY ARTERIAL; ANKLE-BRACHIAL INDICES CLINICAL HISTORY: Right heel ulcer. COMPARISON STUDY: No priors. TECHNIQUE: Real-time, grayscale, and color Doppler sonography of the right lower extremity arteries is performed from the inguinal crease to the foot. Ankle- brachial indices are calculated. FINDINGS: Ankle brachial apices: Right brachial pressure measures 150 and left brachial pressure measures 143. Pressures in the right posterior tibial artery measure 71 for an RAJAT of 0.47. The right dorsalis pedis artery was noncompressible. Left posterior tibial artery pressures measure 121 for an RAJAT of 0.81, and left dorsalis pedis artery pressures measure 98 for an RAJAT of 0.65. Right lower extremity: There are triphasic arterial waveforms identified in the right common femoral artery with velocities measuring up to 76 cm/s. The profundus femoris artery is patent with velocities measuring up to 63 cm/s. There are triphasic arterial waveforms seen throughout the superficial femoral artery with velocities measuring up to 153 cm/s. The popliteal artery is patent with biphasic to triphasic arterial waveforms. Velocities within the proximal popliteal artery measure up to 60 cm/s. There are elevated velocities within the distal popliteal artery, measuring up to 183 cm/s, suggesting focal stenosis. There is three-vessel runoff to the foot. Velocities in the peroneal artery measure up to 46 cm/s, velocities in the posterior tibial artery measure up to 74 cm/s, and velocities within the anterior tibial artery measure up to 84 cm/s. The dorsalis pedis artery is patent with velocities measuring up to 11 cm/s. IMPRESSION: 1. No focal vessel occlusion is identified throughout the arteries of the right lower extremity. There is three-vessel runoff to the foot. 2. There are focally elevated velocities within the distal popliteal artery, suggesting stenosis. 3. Ankle-brachial indices as above. PG Care Time/CCT Total # of Minutes Spent Total Time Spent with Patient: Total time spent is greater than 50% in coordination of care (as documented) at patient's floor/unit and/or counseling patient: (1) Acute [place] Involved coronary artery: unspecified coronary artery Myocardial infarction type: unspecified Qualified Code(s): I21.9 - Acute myocardial infarction, unspecified (2) Diabetic foot ulcer associated with type 2 diabetes mellitus Diabetic foot ulcer location: heel Laterality: right Non-pressure ulcer stage: with fat layer exposed Qualified Code(s): E11.621 - Type 2 diabetes mellitus with foot ulcer; L97.412 - Non-pressure chronic ulcer of right heel and midfoot with fat layer exposed (3) Anemia Anemia type: unspecified type Qualified Code(s): D64.9 - Anemia, unspecified (4) Stage II pressure ulcer of buttock Laterality: left Qualified Code(s): L89.322 - Pressure ulcer of left buttock, stage 2
[2018-12-05] MEDS: DOCUSATE SODIUM 100 MG CAP PO SCH (21:16)
[2018-12-05] MEDS: INSULIN GLARGINE SOLOSTAR 100 UNITS/ML 3 ML PEN SQ SCH (21:16)
[2018-12-06] MEDS: DAPTOmycin 300 MG in SYRINGE 0 ML IV SCH (05:53)
[2018-12-06 07:04] LABS: Basophils # (auto) 0.03 K/uL (0-0.2); Basophils % (auto) 0.4 %; Eosinophils # (auto) 0.36 K/uL (0-0.5); Eosinophils % (auto) 4.6 %; Hemoglobin 10.5 g/dL (12.0-16.0); Immature Granulocytes # (auto) 0.03 K/uL (0.00-0.02); Immature Granulocytes % (auto) 0.4 %; Lymphocytes # (auto) 0.98 K/uL (1.2-3.4); Lymphocytes % (auto) 12.5 %; Mean Corpuscular Hemoglobin 30.5 pg (25-34); Mean Corpuscular Hgb Conc 32.8 g/dL (32-36); Mean Platelet Volume 10.3 fL (7.4-10.4); Monocytes # (auto) 0.96 K/uL (0.11-0.59); Monocytes % (auto) 12.2 %; Neutrophils % (auto) 69.9 %; Platelet Count 267 K/uL (130-400); RDW Coefficient of Variation 15.1 % (11.5-14.5); RDW Standard Deviation 50.8 fL (36.4-46.3); Red Blood Count 3.44 M/uL (4.2-5.4); White Blood Count 7.86 K/uL (4.8-10.8)
[2018-12-06 07:34] LABS: BUN Creatinine Ratio 19.9 (10-20); Calcium 8.3 mg/dl (8.5-10.1); Creatinine Clr Calc Pharmacy 24.8 ml/min; Est GFR (African American) 34.7; Est GFR (Non-African American) 29.9; Potassium 4.7 mmol/L (3.5-5.1)
[2018-12-06] MEDS: DOCUSATE SODIUM 100 MG CAP PO SCH ×2 (07:47→21:40)
[2018-12-06] MEDS: ASPIRIN 81 MG ECTAB PO SCH (07:47)
[2018-12-06] MEDS: ATORVASTATIN 40 MG TAB PO SCH (07:48)
[2018-12-06] MEDS: CLOPIDOGREL BISULFATE 75 MG TAB PO SCH (07:48)
[2018-12-06] MEDS: ISOSORBIDE MONO EXTENDED REL 30 MG TABCR PO SCH (07:48)
[2018-12-06] MEDS: METOPROLOL TARTRATE 50 MG TAB PO SCH ×2 (07:48→21:40)
[2018-12-06] MEDS: CHOLECALCIFEROL 1,000 UNITS TAB PO SCH (07:48)
[2018-12-06] MEDS: GABAPENTIN 100 MG CAP PO SCH (07:49)
[2018-12-06] MEDS: TOPIRAMATE 25 MG TAB PO SCH (07:50)
[2018-12-06] MEDS: POLYETHYLENE (MIRALAX) 17 GM PACK PO SCH (07:50)
[2018-12-06] MEDS: PANTOprazole 40 MG TAB PO SCH (07:50)
[2018-12-06 08:01] LABS: Folate (Folic Acid) 5.34 ng/ml (>5.38)
[2018-12-06] MEDS: INSULIN ASPART 100 UNITS/ML 3 ML PEN SC SCH ×4 (09:19→21:42)
--- NOTE | 2018-12-06 10:19 | Neurology Progress Note ---
Date of Service December 06, 2018 Assessment & Plan (1) CVA (cerebral vascular accident): Bilateral, right greater than left occipital lobe infarcts with a residual left homonymous hemianopsia. History of multi-infarct state/vertebrobasilar insufficiency. Recent stroke identified 2 days after undergoing cardiac catheterization. Continue with clopidogrel. Continue medical management of other stroke risk factors including hypertension and diabetes mellitus. Outpatient visual field assessment with ophthalmology. No further immediate neurological recommendations. Present on Admission?: No Subjective Follow-up for stroke The patient is an 83-year-old female with a history of recent bilateral occipital lobe infarcts, right greater than left, identified 2 days after undergoing cardiac catheterization in the context of acute [place]. She continues to complain of vision loss, especially to the left visual field, although reportedly improved this morning. Past medical history notable for prior infarcts, vertebrobasilar insufficiency, severe diabetic polyneuropathy, and essential tremor. Her Plavix has been continued. She denies any new or interval symptoms since her assessment yesterday but does believe that her vision has improved as above. Review of Systems Constitutional: no fever and no chills Eyes: as per Subjective / HPI and + blind spots; no diplopia Neurologic: as per Subjective / HPI and + tremor(s); no abnormal speech Physical Exam Physical Exam: The patient is a well-developed, well-nourished elderly female. She is alert and fully oriented. Recent and remote memory intact. Attention and concentration normal. She exhibits a normal spontaneous speech pattern as well as an age-appropriate fund of knowledge. There is a left homonymous hemianopsia with confrontation visual field testing. Visual acuity normal. Pupils equal round reactive to light and accommodation. Eye movements normal. Facial sensation intact. There is no facial droop or weakness. Hearing intact. Palate elevates to midline. Shoulder shrug intact. Tongue protrudes to midline. There is a length dependent deficit to all modalities affecting all 4 limbs. Deep tendon reflexes are diffusely diminished. Plantar responses silent. There is mild diffuse weakness and bilateral foot drops noted. There is a left greater than right postural and action tremor of the upper limbs. Results & Data Vital Signs (Past 12 Hours) Vital Signs Temp Pulse Pulse Resp BP BP Pulse Ox 12/06/18 06:52 37.0 C 62 18 148/75 H 100 12/06/18 03:17 36.4 C L 65 16 138/69 100 12/06/18 00:00 62 12/05/18 23:45 36.8 C 68 16 154/75 H 99 12/05/18 22:15 63 18 94 PG Care Time/CCT Total # of Minutes Spent Total Time Spent with Patient: Total time spent is greater than 50% in coordination of care (as documented) at patient's floor/unit and/or counseling patient: (1) CVA (cerebral vascular accident) CVA mechanism: embolism Precerebral and cerebral artery: posterior cerebral artery Laterality of affected vessel: bilateral Qualified Code(s): I63.433 - Cerebral infarction due to embolism of bilateral posterior cerebral arteries
--- NOTE | 2018-12-06 10:37 | Infectious Disease Progress Nt ---
Date of Service December 06, 2018 Assessment & Plan (1) Diabetic foot ulcer associated with type 2 diabetes mellitus: agree with Dapto. She could be transitioned to amoxicillin if pcn allergy clarified but will continue Dapto for now. will need ongoing wound care post d/c and can follow with ID at wound center as well. may benefit from additional debridement, will defer to wound care. Subjective pt remains afebrile. on dapto. tolerating well. wbc 7.8, creat 1.5. ortho planning for I&D heel abscess when stable, currently remains high risk due to recent [place] Results & Data Vital Signs (Past 12 Hours) Vital Signs Temp Pulse Pulse Resp BP BP Pulse Ox 12/06/18 06:52 37.0 C 62 18 148/75 H 100 12/06/18 03:17 36.4 C L 65 16 138/69 100 12/06/18 00:00 62 12/05/18 23:45 36.8 C 68 16 154/75 H 99 PG Care Time/CCT Total # of Minutes Spent Total Time Spent with Patient: Total time spent is greater than 50% in coordination of care (as documented) at patient's floor/unit and/or counseling patient: (1) Diabetic foot ulcer associated with type 2 diabetes mellitus Diabetic foot ulcer location: heel Laterality: right Non-pressure ulcer stage: with fat layer exposed Qualified Code(s): E11.621 - Type 2 diabetes mellitus with foot ulcer; L97.412 - Non-pressure chronic ulcer of right heel and midfoot with fat layer exposed
--- NOTE | 2018-12-06 11:43 | Hospitalist Progress Note ---
Date of Service December 06, 2018 Assessment & Plan (1) Stress-induced cardiomyopathy: Presented with chest pain, elevated troponin to 14, with mildly reduced LVEF at 40-45% with akinetic LV apex Cardiac catheterization showed severe multivessel CAD with no acute blockages Cardiology feels that this is most likely consistent with stress-induced cardiomyopathy rather than a true acute coronary syndrome at this point -Due to akinetic LV apex and stroke, most likely had an LV thrombus Limited echo without evidence of LV thrombus but high risk for recurrence -Restart heparin drip and convert to Eliquis if no surgery planned in the near future -Plan is for anticoagulation for at least 1 month with repeat echo at that time -We will need close outpatient cardiology follow-up (2) Multi-vessel coronary artery stenosis: With severe multivessel disease, not amenable to stenting -Appreciate cardiology consultation -Continue Plavix but will now discontinue aspirin as do not want to be on triple therapy -On heparin drip as above but will convert to Eliquis and Plavix alone -Continue metoprolol, add lisinopril back for the morning, continue atorvastatin, Imdur (3) Acute ME: Presented with NSTEMI. Troponin peaked at 14 on admission, and then downtrending since. Now likely consistent with stress-induced cardiomyopathy as above With 2 episodes of left-sided chest pain with radiation on the left arm each on the mornings of 12/04 and 12/05, self resolving Troponin on 12/05 is 0.9 and 0.8, ECG remains with diffuse inferolateral T wave inversions similar to previous Echocardiogram 12/04 with LVEF 40-45%, apical and mid septal akinesis, hypokinetic mid anterior, mid anteroseptal kumar, no LV thrombus Appreciate cardiology consultation - Cardiac cath on 12/02 showed diffuse disease -> Culprit for ME thought to be a transient LAD lesion vs. stress-induced cardiomyopathy - Finished heparin gtt on 12/03, was then restarted for ongoing angina and possible embolic CVA on 12/04---> now troponin continues to trend downward--> dcd heparin gtt now to reduce risk of hemorrhagic conversion -However, after further discussion with cardiology and neurology, her risk for hemorrhagic conversion is lower at this point she is several days out from her stroke-we will restart heparin drip due to high risk for recurrence of LV thrombus due to akinetic LV apex - Continue Plavix for medical management of severe CAD, but also for acute CVA and history of vertebral artery occlusion - Continue beta-eileen and increase dose to 100 mg p.o. twice daily for antianginal effect, continue statin - Started Imdur 30 mg daily on 12/04 -Start ACEi tomorrow as blood pressure is tolerating increased dose of metoprolol-allowing permissive hypertension for now due to acute CVA so will not add at this time -No further angina at this point status post PRBC transfusion (4) CVA (cerebral vascular accident): Hx of CVA and previously on Plavix. She was at Coumadin at some point in the past for vertebral artery stenosis but was discontinued when she had a GI bleed. 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 The left distal vertebral is likely occluded. Embolic stroke from the heart cannot be excluded but there is no thrombus seen on limited repeat echocardiogram. However with likely thrombus from the akinetic LV apex as above is most likely culprit as per cardiology-restarting heparin drip with transition to Eliquis planned as above She has no atrial fibrillation or flutter on telemetry. Clinically she has a dense left homonymous hemianopia as per neuro but is somewhat improved - Continue Plavix, statin, heparin drip as above -Permissive hypertension at this point, but increasing metoprolol as above for antianginal effect, will watch blood pressures and try to keep MAP greater than 90-95 -Appreciate neurology consultation -PT/OT/speech therapy all ordered -Monitor for hemorrhagic conversion and/or new strokes (5) Diabetic foot ulcer associated with type 2 diabetes mellitus: Likely osteitis R foot with possible developing abscess/phlegmon. MRI foot on 12/02 showed a partially loculated fluid collection which abuts the cortex of the calcaneus and measures approximately 1.3 cm. - Cefepime was stopped on 12/03 because all culture are growing Gram(+) organi sms -Wound culture growing Enterococcus faecalis and coag negative staph Pain in the heel is significantly improved and she has no systemic symptoms at this point -Continue IV daptomycin but as per discussion with ID and due to her penicillin allergy, will switch to oral [place] nasal lid upon discharge - Ortho and ID consulted - Appreciate assistance-orthopedics recommending surgical incision and drainage, however remains high risk at this time due to recent NSTEMI and acute CVA-orthopedics plans to defer surgery for at least 1 to 2 weeks with continued antibiotics after discharge -Will need close follow-up with orthopedics after discharge - Continue daptomycin for now; monitor CK while on dapto and statin -Appreciate orthopedic consultation Anesthesia was consulted and they could perform her surgery with a popliteal nerve block and local sedation if needed, but will defer at this time as above (6) Anemia: Likely secondary to chronic disease and kidney disease. Hemoglobin was 9.7 on admission and then down to 7.9. Per outside lab was 9.3 in November 16, 2018. MCV is borderline macrocytic Now status post 2 units PRBCs on 12/05 and significant improved hemoglobin at 10.5 No further angina Folate also low at 5-replace B12 normal -Follow CBC in the morning -Order fecal occult blood -Transfuse to keep hemoglobin greater than 8-9 given recent ME and CVA (7) Chronic kidney disease, stage 3: Acute kidney failure on CKD. Baseline Cr is unknown, though her Cr. has trended down from 2.4 on admission down to 1.59 -Okay to restart home lisinopril - Monitor BMP -Continue holding home furosemide-not volume overloaded at this time (8) Peripheral arterial disease: Has some evidence of decreased ABIs on testing here, arterial Doppler of the right lower extremity with focal stenosis in the distal popliteal artery, however has good three-vessel runoff to the foot -Continue Plavix, statin -Appreciate cardiology input-no need for intervention at this point (9) Stage II pressure ulcer of buttock: Wound care following (10) HTN (hypertension): Allowing permissive hypertension with goal MAP 95 -Restarting home lisinopril and tingling to hold furosemide -Increased metoprolol to 100 mg p.o. 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 once daily (14) Diabetic polyneuropathy: Chronic for many years, with bilateral foot drop -Continue gabapentin, Topamax (15) Hemianopia, homonymous, left: Secondary to acute occipital lobe CVAs as above (16) DVT prophylaxis: Heparin drip Disposition-remain on PCU/telemetry PT/OT consults placed and patient prefer for her to go home with home health-he says that he can take care of her there. Subjective Patient feeling much improved today, no further chest pain. She did receive 2 units PRBCs yesterday. She is no longer having any pain and feels that that is improved. Denies nausea or abdominal pain, is tolerating p.o. She reports she is happy she can see the clock on the wall but is still having trouble seeing her food when she eats on her tray Telemetry with normal sinus rhythm with rates in the 60s to 70s I discussed her case with multiple specialties today to include neurology, cardiology, orthopedic surgery PA, infectious disease, and anesthesiology I discussed her case with her and her at bedside at length as well Review of Systems Review of Systems: All systems reviewed & are unremarkable except as noted in HPI & below Physical Exam Constitutional: well developed; no acute distress Eyes: + anicteric sclerae; + abnormal visual field confrontation (Cannot see fingers held up in front of her for peripheral field testing until right in her central line of vision) ENMT: external ear and nose normal, oropharynx normal Neck: trachea midline, no thyromegaly Respiratory: normal respiratory effort, lungs clear to auscultation Cardiovascular: RRR, no murmur, no edema Gastrointestinal (Abdomen): normal bowel sounds, soft, nontender, no hepa tosplenomegaly Musculoskeletal: Extremities: extremities normal to inspection; no cyanosis and no clubbing Skin: no rashes, warm and dry + wound (Right medial heel with open ulcer approximately 2 x 2 cm, no TTP, no erythema or drainage) Neurologic: moves all extremities (except bilat foot drop) and awake Psychiatric: A+Ox3, euthymic affect Results & Data Vital Signs (Past 12 Hours) Vital Signs Temp Pulse Pulse Resp BP BP Pulse Ox 12/06/18 06:52 37.0 C 62 18 148/75 H 100 12/06/18 03:17 36.4 C L 65 16 138/69 100 12/06/18 00:00 62 12/05/18 23:45 36.8 C 68 16 154/75 H 99 Laboratory Results 12/07/18 12/06/18 12/06/18 Range/Units 05:07 20:21 19:23 WBC (4.8-10.8) K/uL RBC (4.2-5.4) M/uL Hgb (12.0-16.0) g/dL Hct (37-47) % MCV (80-100) fL MCH (25-34) pg MCHC (32-36) g/dL RDW Std Deviation (36.4-46.3) fL RDW Coeff of Ciera (11.5-14.5) % Plt Count (130-400) K/uL MPV (7.4-10.4) fL Immature Gran % (Auto) % Neut % (Auto) % Lymph % (Auto) % [place] % (Auto) % Eos % (Auto) % Baso % (Auto) % Immature Gran # (Auto) (0.00-0.02) K/uL Neut # (Auto) (1.4-6.5) K/uL Lymph # (Auto) (1.2-3.4) K/uL [place] # (Auto) (0.11-0.59) K/uL Eos # (Auto) (0-0.5) K/uL Baso # (Auto) (0-0.2) K/uL PT (9.0-12.0) Seconds INR (0.9-1.1) APTT 49.7 H* 46.0 H* (21.0-31.0) Seconds PTT Ratio 1.8 1.7 Sodium (136-145) mmol/L Potassium (3.5-5.1) mmol/L Chloride (98-107) mmol/L Carbon Dioxide (21-32) mmol/L Anion Gap (3-11) BUN (7-18) mg/dl Creatinine (0.6-1.2) mg/dl Est Cr Clr Drug Dosing ml/min Est GFR ( Amer) Est GFR (Non-Af Amer) BUN/Creatinine Ratio (10-20) Glucose (70-99) mg/dl POC Glucose 147 H (70-99) Calcium (8.5-10.1) mg/dl Vitamin B12 (211-911) pg/ml Folate (>5.38) ng/ml Crossmatch 12/06/18 12/06/18 12/06/18 Range/Units 16:21 12:48 11:48 WBC (4.8-10.8) K/uL RBC (4.2-5.4) M/uL Hgb (12.0-16.0) g/dL Hct (37-47) % MCV (80-100) fL MCH (25-34) pg MCHC (32-36) g/dL RDW Std Deviation (36.4-46.3) fL RDW Coeff of Ciera (11.5-14.5) % Plt Count (130-400) K/uL MPV (7.4-10.4) fL Immature Gran % (Auto) % Neut % (Auto) % Lymph % (Auto) % [place] % (Auto) % Eos % (Auto) % Baso % (Auto) % Immature Gran # (Auto) (0.00-0.02) K/uL Neut # (Auto) (1.4-6.5) K/uL Lymph # (Auto) (1.2-3.4) K/uL [place] # (Auto) (0.11-0.59) K/uL Eos # (Auto) (0-0.5) K/uL Baso # (Auto) (0-0.2) K/uL PT 10.1 (9.0-12.0) Seconds INR 1.0 (0.9-1.1) APTT 28.8 (21.0-31.0) Seconds PTT Ratio 1.1 Sodium (136-145) mmol/L Potassium (3.5-5.1) mmol/L Chloride (98-107) mmol/L Carbon Dioxide (21-32) mmol/L Anion Gap (3-11) BUN (7-18) mg/dl Creatinine (0.6-1.2) mg/dl Est Cr Clr Drug Dosing ml/min Est GFR ( Amer) Est GFR (Non-Af Amer) BUN/Creatinine Ratio (10-20) Glucose (70-99) mg/dl POC Glucose 159 H 95 (70-99) Calcium (8.5-10.1) mg/dl Vitamin B12 (211-911) pg/ml Folate (>5.38) ng/ml Crossmatch 12/06/18 12/06/18 12/06/18 Range/Units 07:01 06:19 06:19 WBC (4.8-10.8) K/uL RBC (4.2-5.4) M/uL Hgb (12.0-16.0) g/dL Hct (37-47) % MCV (80-100) fL MCH (25-34) pg MCHC (32-36) g/dL RDW Std Deviation (36.4-46.3) fL RDW Coeff of Ciera (11.5-14.5) % Plt Count (130-400) K/uL MPV (7.4-10.4) fL Immature Gran % (Auto) % Neut % (Auto) % Lymph % (Auto) % [place] % (Auto) % Eos % (Auto) % Baso % (Auto) % Immature Gran # (Auto) (0.00-0.02) K/uL Neut # (Auto) (1.4-6.5) K/uL Lymph # (Auto) (1.2-3.4) K/uL [place] # (Auto) (0.11-0.59) K/uL Eos # (Auto) (0-0.5) K/uL Baso # (Auto) (0-0.2) K/uL PT (9.0-12.0) Seconds INR (0.9-1.1) APTT (21.0-31.0) Seconds PTT Ratio Sodium 137 (136-145) mmol/L Potassium 4.7 (3.5-5.1) mmol/L Chloride 108 H (98-107) mmol/L Carbon Dioxide 21 (21-32) mmol/L Anion Gap 8.0 (3-11) BUN 32 H (7-18) mg/dl Creatinine 1.59 H (0.6-1.2) mg/dl Est Cr Clr Drug Dosing 24.8 ml/min Est GFR ( Amer) 34.7 Est GFR (Non-Af Amer) 29.9 BUN/Creatinine Ratio 19.9 (10-20) Glucose 85 (70-99) mg/dl POC Glucose 104 H (70-99) Calcium 8.3 L (8.5-10.1) mg/dl Vitamin B12 539 (211-911) pg/ml Folate 5.34 L (>5.38) ng/ml Crossmatch 12/06/18 12/05/18 Range/Units 06:19 08:43 WBC 7.86 (4.8-10.8) K/uL RBC 3.44 L (4.2-5.4) M/uL Hgb 10.5 L (12.0-16.0) g/dL Hct 32.0 L (37-47) % MCV 93.0 (80-100) fL MCH 30.5 (25-34) pg MCHC 32.8 (32-36) g/dL RDW Std Deviation 50.8 H (36.4-46.3) fL RDW Coeff of Ciera 15.1 H (11.5-14.5) % Plt Count 267 (130-400) K/uL MPV 10.3 (7.4-10.4) fL Immature Gran % (Auto) 0.4 % Neut % (Auto) 69.9 % Lymph % (Auto) 12.5 % [place] % (Auto) 12.2 % Eos % (Auto) 4.6 % Baso % (Auto) 0.4 % Immature Gran # (Auto) 0.03 H (0.00-0.02) K/uL Neut # (Auto) 5.50 (1.4-6.5) K/uL Lymph # (Auto) 0.98 L (1.2-3.4) K/uL [place] # (Auto) 0.96 H (0.11-0.59) K/uL Eos # (Auto) 0.36 (0-0.5) K/uL Baso # (Auto) 0.03 (0-0.2) K/uL PT (9.0-12.0) Seconds INR (0.9-1.1) APTT (21.0-31.0) Seconds PTT Ratio Sodium (136-145) mmol/L Potassium (3.5-5.1) mmol/L Chloride (98-107) mmol/L Carbon Dioxide (21-32) mmol/L Anion Gap (3-11) BUN (7-18) mg/dl Creatinine (0.6-1.2) mg/dl Est Cr Clr Drug Dosing ml/min Est GFR ( Amer) Est GFR (Non-Af Amer) BUN/Creatinine Ratio (10-20) Glucose (70-99) mg/dl POC Glucose (70-99) Calcium (8.5-10.1) mg/dl Vitamin B12 (211-911) pg/ml Folate (>5.38) ng/ml Crossmatch See Detail PG Care Time/CCT Total # of Minutes Spent Total Time Spent with Patient: Total time spent is greater than 50% in coordination of care (as documented) at patient's floor/unit and/or counseling patient: (1) Stage II pressure ulcer of buttock Laterality: left Qualified Code(s): L89.322 - Pressure ulcer of left buttock, stage 2 (2) Diabetic foot ulcer associated with type 2 diabetes mellitus Diabetic foot ulcer location: heel Laterality: right Non-pressure ulcer stage: with fat layer exposed Qualified Code(s): E11.621 - Type 2 diabetes mellitus with foot ulcer; L97.412 - Non-pressure chronic ulcer of right heel and midfoot with fat layer exposed (3) Acute ME Involved coronary artery: unspecified coronary artery Myocardial infarction type: unspecified Qualified Code(s): I21.9 - Acute myocardial infarction, unspecified (4) Anemia Anemia type: unspecified type Qualified Code(s): D64.9 - Anemia, unspecified (5) CVA (cerebral vascular accident) CVA mechanism: embolism Laterality of affected vessel: bilateral Precerebral and cerebral artery: posterior cerebral artery Qualified Code(s): I63.433 - Cerebral infarction due to embolism of bilateral posterior cerebral arteries
[2018-12-06 13:16] LABS: Partial Thromboplastin Ratio 1.1; Partial Thromboplastin Time 28.8 Seconds (21.0-31.0); Prothrombin Time 10.1 Seconds (9.0-12.0)
[2018-12-06] MEDS: FOLIC ACID 1 MG TAB PO SCH (13:20)
[2018-12-06] MEDS: HEPARIN SODIUM/DEXTROSE 25,000 UNITS/500 ML BAG IV SCH (13:20)
[2018-12-06] MEDS: Heparin IV Standard *NO* Bolus IV SCH (13:29)
--- NOTE | 2018-12-06 17:21 | Anesthesiology Consultation ---
Date of Service December 06, 2018 The patient requires debridement of her R ankle. She is a high anesthetic risk due to multiple comorbidities. Acutely the most concerning issues are a NSTEMI with troponin peak of 14 on 12/02/18. A cardiac catheterization was performed that showed a cardiac myopathy. Subsequently she had a bilateral occipital stroke on 12/04/18. She has been feeling better over the past two days. On exam the patient was pleasantly eating her dinner. She responded appropriately to questions and did not have any major gross neurologic deficits. She had some numbness over the top of her foot likely due to diabetic neuropathy but did have sensation over R ankle. The patient remained in socks and compression boots during the exam. The patient states that her ankle feels better now. The patient was discussed with Dr. Shaw. The patient is a high anesthetic risk for stroke and heart attack. The anesthetic would be a MAC sedation or popliteal block if possible with general anesthesia as a backup. The main acute anesthetic concern being her cardiac status. The question is whether her heart is optimized at this point or if she would be better off waiting a week or two. Her cardiac concerns must be weighed against worsening of her R ankle infection. Dr. Shaw also stated that timing of the surgery may depend on the orthopedic surgeon's availability which I strongly recommend that the patient have her surgery during normal business hours rather than when only the call team is available. Since the patient's ankle is feeling better, Dr. Shaw also discussed discharging the patient when she is stable and then having the patient undergo surgery as an outpatient. The possible plans of doing the surgery this week or in the future as an outpatient were discussed with the patient and her family. They would be ag reeable to whatever the care team feels is best. Dr. Shaw will continue to coordinate care between the cardiology and orthopedic teams. She will contact the anesthesia department with any updates in the patient's situation. History Surgery Operation Date: 12/02/18 09:30 Proposed Procedures p Cath, Left with Cors and Vent - Scotty Miranda MD Height/Weight Height: 5 ft 2 in Weight: 69 kg Allergies Allergy/AdvReac Type Severity Reaction Status Date / Time acetaminophen Allergy Unknown SWEATING Verified 12/01/18 22:36 amitriptyline Allergy Unknown BLURRED Verified 12/01/18 22:36 DOUBLE VISION Cipro Allergy Unknown itshiness,red Verified 06/25/16 17:42 streak ciprofloxacin Allergy Unknown itshiness,red Verified 12/01/18 22:36 streak gabapentin Allergy Unknown SHAKES,VISION Verified 12/01/18 22:36 CHANGES guaifenesin Allergy Unknown UNKNOWN Verified 12/01/18 22:36 latex Allergy Unknown SKIN GETS Verified 12/01/18 22:36 RAW-PT HAS NO RECOLLECTION meloxicam Allergy Unknown DIARRHEA Verified 12/01/18 22:36 metformin Allergy Unknown HOT FLASHES Verified 12/01/18 22:36 metronidazole Allergy Unknown UNKNOWN Verified 12/01/18 22:36 Penicillins Allergy Unknown INJECTION Verified 11/23/18 09:16 UNKNOWN pioglitazone Allergy Unknown SORE Verified 11/23/18 09:16 THROAT,EAts excessively pregabalin Allergy Unknown DIZZINESS, Verified 11/23/18 09:16 SLEEPY rofecoxib Allergy Unknown UNKNOWN Verified 11/23/18 09:16 rosuvastatin Allergy Unknown UNKNOWN Verified 11/23/18 09:16 simvastatin Allergy Unknown UNKNOWN Verified 11/11/18 10:30 Sulfa (Sulfonamide Allergy Unknown HIVES Verified 11/11/18 10:30 Antibiotics) tramadol Allergy Unknown SWEATING Verified 11/11/18 10:30 Medications Home Medications Medication Instructions Recorded Confirmed Last Taken atorvastatin 40 mg tablet 40 mg PO QAM tab 06/28/18 12/01/18 Unknown clopidogrel 75 mg tablet 75 mg PO DAILY 06/28/18 12/01/18 Unknown furosemide 20 mg tablet 20 mg PO BID 06/28/18 12/01/18 Unknown insulin aspart (U-100) 100 unit/mL 4 - 6 units SQ TIDM ml 06/28/18 12/01/18 Unknown (3 mL) subcutaneous pen insulin glargine (U- 100) 100 12 units SQ HS ml 06/28/18 12/01/18 Unknown unit/mL subcutaneous solution metoprolol tartrate 75 mg tablet 75 mg PO BID 06/28/18 12/01/18 Unknown tramadol 50 mg tablet 50 mg PO Q8H PRN 10/19/18 12/01/18 Unknown blood sugar diagnostic strips #10 ea 11/05/18 12/01/18 Unknown topiramate 25 mg tablet 25 mg PO DAILY #30 tab 11/05/18 12/01/18 Unknown cholecalciferol (vitamin D3) 1,000 unit PO DAILY 12/01/18 12/01/18 Unknown [Vitamin D3] gabapentin 100 mg PO DAILY 12/01/18 12/01/18 Unknown lisinopril 10 mg PO DAILY 12/01/18 12/01/18 Unknown pantoprazole [Protonix] 40 mg PO DAILY 12/01/18 12/01/18 Unknown Active Medications Generic Name Dose Route Start Last Admin Trade Name Francoisq PRN Reason Stop Dose Admin Atorvastatin Calcium 40 mg 12/02/18 09:00 12/06/18 07:48 Lipitor PO 01/01/19 08:59 40 mg QAM MINDY Administration Clopidogrel Bisulfate 75 mg 12/02/18 09:00 12/06/18 07:48 Plavix PO 01/01/19 08:59 75 mg DAILY MINDY Administration Docusate Sodium 100 mg 12/05/18 21:00 12/06/18 07:47 Colace PO 01/04/19 20:59 100 mg BID MINDY Administration Folic Acid 1 mg 12/06/18 10:00 12/06/18 13:20 Folvite PO 01/05/19 09:59 1 mg QAM MINDY Administration Gabapentin 100 mg 12/02/18 09:00 12/06/18 07:49 Neurontin PO 01/01/19 08:59 100 mg DAILY MINDY Administration Daptomycin 300 mg/ Syringe 6 mls @ 0 mls/min 12/04/18 05:30 12/06/18 05:53 IV 12/14/18 05:29 1 mls/min Q48H MINDY Administration Protocol Heparin Sodium/Dextrose 25,000 units in 500 mls @ 21 mls/hr 12/06/18 11:45 12/06/18 13:20 Heparin Sodium/Dextrose IV 01/05/19 11:44 1,050 units/hr .[id number] MINDY 21 mls/hr Administration Protocol 1,050 UNITS/HR Insulin Aspart 0 units 12/03/18 07:30 12/06/18 12:28 Novolog Flexpen SC 01/02/19 07:29 Not Given ACHS MINDY Insulin Glargine 12 units 12/02/18 21:00 12/05/18 21:16 Lantus Solostar Pen SQ 01/01/19 20:59 12 units HS MINDY Administration Ioversol 114 ml 12/04/18 15:35 12/04/18 15:36 Optiray 320 125ml IV 12/08/18 15:34 114 ml ONCE PRN Administration Interaction Checking Isosorbide Mononitrate 30 mg 12/04/18 09:00 12/06/18 07:48 Imdur Extended Rel PO 01/03/19 08:59 30 mg QAM MINDY Administration Metoprolol Tartrate 100 mg 12/05/18 10:00 12/06/18 07:48 Lopressor PO 01/04/19 09:59 100 mg BID MINDY Administration Ondansetron HCl 4 mg 12/02/18 02:35 12/02/18 21:34 Zofran IV 01/01/19 02:34 4 mg Q6H PRN Administration Nausea Pantoprazole Sodium 40 mg 12/02/18 09:00 12/06/18 07:50 Protonix PO 01/01/19 08:59 40 mg DAILY MINDY Administration Polyethylene Glycol 17 gm 12/06/18 09:00 12/06/18 07:50 Miralax Powder Packet PO 01/05/19 08:59 17 gm DAILY MINDY Administration Sennosides 8.6 mg 12/04/18 20:22 12/04/18 21:45 Senokot PO 01/04/19 08:59 8.6 mg QAM PRN Administration Constipation Topiramate 25 mg 12/02/18 09:00 12/06/18 07:50 Topamax PO 01/01/19 08:59 25 mg DAILY MINDY Administration Tramadol HCl 50 mg 12/02/18 02:35 12/05/18 08:29 Ultram PO 01/01/19 02:34 50 mg Q8H PRN Administration Pain Vitamin D 1,000 units 12/02/18 09:00 12/06/18 07:48 Vitamin D3 PO 01/01/19 08:59 1,000 units DAILY MINDY Administration NPO Date Last Intake of Fluids: 12/02/18 Time Last Intake of Fluids: 00:01 Date Last Intake of Solids: 12/02/18 Time Last Intake of Solids: 00:01 Past Medical History Medical History Chronic kidney disease, stage 3 (Chronic) HTN (hypertension) (Chronic) Diabetes mellitus with diabetic polyneuropathy (Acute) Ulcer of right heel (Acute) Anxiety associated with depression (Chronic) Benign recurrent vertigo (Chronic) Bilateral foot-drop (Chronic) Blood clotting disorder (Chronic) Chronic GERD (Chronic) Diabetes mellitus type 2 with complications, uncontrolled (Chronic) Gastritis (Chronic) H/O diastolic dysfunction (Chronic) H/O: CVA (cerebrovascular accident) (Chronic) Hyperlipidemia (Chronic) Hypokalemia (Chronic) Memory loss (Chronic) Nephropathy (Chronic) Neurologic gait dysfunction (Chronic) Osteoarthritis (Chronic) Polyarthritis (Chronic) Resting tremor (Chronic) Right lumbar radiculopathy (Chronic) Sleep apnea (Chronic) Stenosis of right carotid artery (Chronic) Urinary frequency (Chronic) Vitamin D deficiency (Chronic) Weight disorder (Chronic) Cataract (Resolved) Cholecystectomy planned (Resolved) H/O: hysterectomy (Resolved) Past Family History Family History Mother , in her 80s of a cerebral aneurysm Heart disease Stroke Tremor Father , in his 80s of heart disease Heart disease Other No pertinent family history Past Surgical History Surgical History S/P cholecystectomy S/P hysterectomy S/P tonsillectomy Hx of tonsillectomy (Resolved) Social History Smoking Status: Never smoker Do You Dip or Chew Tobacco: No Hx Alcohol Use: No Hx Substance Use: No substance use type: does not use Physical Exam Vital Signs Last Vital Signs Temp 36.4 C L 12/06/18 15:01 Pulse 62 12/06/18 15:01 Resp 19 12/06/18 15:01 BP 129/67 12/06/18 15:01 Pulse Ox 99 12/06/18 15:01 Testing Laboratory Results 12/06/18 06:19 12/06/18 06:19 PT 10.1 Seconds (9.0-12.0) 12/06/18 12:48 INR 1.0 (0.9-1.1) 12/06/18 12:48 APTT 28.8 Seconds (21.0-31.0) 12/06/18 12:48 Hemoglobin A1c 6.4 % (4.5-5.6) H 12/02/18 05:38 Blood Type O Positive 12/05/18 08:43 Antibody Screen NEGATIVE 12/05/18 08:43 12/06/18 12/06/18 12/06/18 16:21 11:48 07:01 POC Glucose 159 H 95 104 H Electrocardiogram Date: 12/05/18 Findings: + NSR @ (69) and + ND (inferior) ST and T wave changes possible anterolateral ischemia Chest X-Ray Date: 12/01/18 XR chest 1V portable HISTORY: Atypical Chest Pain COMPARISON: Chest 04/20/2018. FINDINGS: A few small left basilar linear densities favor subsegmental atelectasis. The lungs are otherwise clear. The heart is normal in size. No pleural effusions. No pneumothorax. IMPRESSION: No acute process. Electronically signed by: Chavez Lozada M.D. 12/02/2018 7:29 AM Dictated: 12/02/18727 Transcribed: 12/02/18727 Echocardiogram Date: 12/04/18 EF: 40-45 LV Function: dysfunctional (apical and septal akinesis, hypokinesis of mid anterior and mid anteroseptal kumar) Other Findings: + LVH Cervical Spine CT angio neck with con CLINICAL HISTORY: Acute posterior circulation stroke COMPARISON STUDY: MRI of the brain dated 12/04/2018 TECHNIQUE: CT angiography was performed from the aortic arch to the skull base. MIP imaging was performed. The patient was scanned in a dynamic helical fashion during intravenous administration of 114 cc of Optiray 320. A dose lowering technique was utilized adhering to the principles of ALARA. CT DOSE: 522.81 mGy.cm Technique: CT angiogram of the carotid and vertebral arteries was obtained using intravenous contrast and 3-D reconstruction. NASCET criteria was utilized. Findings: There is extensive atheromatous plaque at the level of the proximal right internal carotid. This results in a 57% diameter stenosis. This may be a slight over estimation given the degree of calcific plaque. There is no evidence of dissection or internal carotid artery aneurysm. There is mild atheromatous plaque at the level left carotid bulb. There is no evidence of hemodynamically significant stenosis. Calcifications are also visualized within the cavernous carotid. There is a dominant right vertebral artery. The left vertebral artery appears to terminate in a PICA branch. There is no evidence of significant vertebral artery or basilar artery stenosis. IMPRESSION: 1. Atheromatous changes with a less than 60% diameter stenosis of the right internal carotid artery 2. Dominant right vertebral artery. No evidence of dynamically significant vertebral artery stenosis Electronically signed by: Dru Harmon M.D. 12/04/2018 3:54 PM Dictated: 12/04/[address] angio head w con CLINICAL HISTORY: Acute posterior circulation stroke TECHNIQUE: CT angiography of the head was performed in a dynamic helical fashion during intravenous administration of 114 cc of Optiray 320. MIP imaging was performed. A dose lowering technique was utilized adhering to the principles of ALARA. CT DOSE: COMPARISON STUDY: Noncontrast CT scan dated 12/25/2013, MRI of the brain dated 12/04/2018 FINDINGS: There are no lesion suspicious for aneurysm. There are no major intracranial branch occlusions. The dural venous sinuses appear patent. The right vertebral artery is dominant. The distal left vertebral artery is markedly hypoplastic. It is equivocally occluded. There are bilateral occipital lobe hypodensities consistent with areas of infarction. MRI OF THE BRAIN WITHOUT CONTRAST CLINICAL HISTORY: Left-sided hemicord. Suspected acute stroke. COMPARISON STUDY: July 2013 FINDINGS: Sagittal T1, axial diffusion, proton density and T2 weighted axial, coronal FLAIR, and axial T1-weighted images were acquired. No intra or extra-axial mass lesions are visualized There are extensive foci of restricted water diffusion involving both occipital lobes. There is also a focus of restricted water diffusion within the left cerebellar hemisphere. The findings are indicative of acute/subacute infarct There is mild ventricular dilatation, likely secondary to volume loss Proton density T2-weighted and FLAIR images reveal moderately extensive foci of increased T2 signal within the white matter, likely on a small vessel basis. In addition there are foci of increased FLAIR signal within the temporal lobes, corresponding to the acute/subacute infarcts. There are old lacunar infarcts within the lotus. There are no abnormal flow voids. There are bilateral mastoid effusions. IMPRESSION: 1. Acute posterior circulation stroke with moderately extensive foci of restricted water diffusion involving both occipital lobes. There is also focus of restricted water diffusion left cerebellar hemisphere. The findings are ind icative of acute/subacute bilateral infarcts Electronically signed by: Dru Harmon M.D. 12/04/2018 1:58 PM Dictated: 12/04/18 1353 Transcribed: 12/04/18 1353 There are bilateral mastoid effusions right greater than left IMPRESSION: 1. No significant abnormalities of the anterior circulation 2. Dominant right vertebral artery. Markedly hypoplastic distal left vertebral artery with possible occlusion of the distalmost hypoplastic segment. 3. Acute/subacute bilateral occipital lobe infarcts Electronically signed by: Dru Harmon M.D. 12/04/2018 4:05 PM Dictated: 12/04/18 1557 Transcribed: 12/04/18 1557
[2018-12-06 19:50] LABS: Partial Thromboplastin Ratio 1.7
[2018-12-06] MEDS: INSULIN GLARGINE SOLOSTAR 100 UNITS/ML 3 ML PEN SQ SCH (21:41)
--- NOTE | 2018-12-06 22:28 | Cardiology Progress Note ---
Date of Service December 06, 2018 Assessment & Plan (1) Multi-vessel coronary artery stenosis: 2. NSTEMI -- feel most likely secondary to takotsubo's rather than true ACS. 3. Apical akinesis/ischemic cardiomyopathy--EF40-45% 4. 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 Cerebrovascular disease with ? left distal vertebral occlusion 6. RT heel ulcer/abscess 7. LE PAD - RT RAJAT 0.47, LT 0.81 (moderate distal SFA/popliteal stenosis, likely RT GUSTABO occlusion with reconstitution). 8. Anemia post transfusion. 9. Rheumatoid arthritis 10. Insulin-dependent diabetes 11. CKD Patient remains chest pain free, troponin trending down. Hemodynamically and electrically stable. LV function mildly reduced on follow-up echo. No signs of heart failure on exam. Visual symptoms improving. Based on patient's coronary anatomy (diminutive LAD with moderate disease) feel that most likely cause of troponin elevation and apical akinesis is takotsubo's rather than plaque rupture/acute coronary syndrome. Patient was found to have severe, high-risk multivessel CAD making her risk for adverse cardiac events elevated from any procedure. In that setting would favor avoiding general anesthesia if possible. However, as patient now almost 1 week out from initial cardiac symptoms and with the chronic nature of her CAD due not feel there is significant risk reduction from delaying surgery for her heel ulceration/abscess any set period of time. She is on appropriate secondary prevention meds and appears euvolemic. In regards to patient's strokes, feel she remains high risk for embolic events from her LV apical akinesis. If wall motion secondary to takotsubo's should get better with time but in the interim would favor anticoagulation with repeat echo in 1 month. -- Transition heparin to eliquis post surgery -- would avoid triple therapy - while on anticoagulation would drop aspirin. no strong indication for clopidogrel and if recurrent bleeding could continue on eliquis alone. -- continue current beta-eileen. Start back home lisinopril -- maintain Hb > 8 -- continue imdur, statin. -- LE arterial duplex reviewed -- moderate sfa/popliteal disease and possible GUSTABO disease. RAG GRADER appears patent to foot/heel. Foot reasonably perfused on exam. For now would defer endovascular intervention. Subjective Patient seen early this morning. Denied any recurrent chest pain. Stated that visual symptoms improved but not back to baseline. Denied foot/ankle pain. No other new concerns. Telemetry reviewed -- no events. Review of Systems Review of Systems: All systems reviewed & are unremarkable except as noted in HPI & below Physical Exam Physical Exam: General: Comfortable, no acute distress HEENT: Sclerae anicteric, mucous membranes moist Lungs: Clear to auscultation bilaterally Cardiac: Regular rate and rhythm, no murmurs. Abdomen: Soft, nontender, nondistended, positive bowel sounds. Extremities: Warm, well perfused, no edema. right radial pulse intact. mild ecchymosis at right [employer] access tie Toes pink, with normal to slightly sluggish cap refill. RT heel dressed, waffle boots in place. Psych: Alert orient x3, normal affect and mood Results & Data Vital Signs (Past 12 Hours) Vital Signs Temp Pulse Pulse Resp BP BP Pulse Ox 12/06/18 21:38 64 145/70 H 12/06/18 19:35 97.7 F 60 18 121/68 98 12/06/18 17:24 60 12/06/18 15:01 97.5 F L 62 19 129/67 99 12/06/18 11:53 99.1 F 55 L 18 119/61 99 PG Care Time/CCT Total # of Minutes Spent Total Time Spent with Patient: Total time spent is greater than 50% in coordination of care (as documented) at patient's floor/unit and/or counseling patient:
[2018-12-07 05:59] LABS: Partial Thromboplastin Ratio 1.8
[2018-12-07 06:37] LABS: Partial Thromboplastin Time 49.7 Seconds (21.0-31.0)
[2018-12-07 07:48] LABS: Basophils # (auto) 0.04 K/uL (0-0.2); Basophils % (auto) 0.5 %; Eosinophils # (auto) 0.42 K/uL (0-0.5); Eosinophils % (auto) 5.1 %; Hematocrit (blood only) 33.2 % (37-47); Hemoglobin 10.8 g/dL (12.0-16.0); Immature Granulocytes # (auto) 0.05 K/uL (0.00-0.02); Immature Granulocytes % (auto) 0.6 %; Lymphocytes % (auto) 19.3 %; Mean Corpuscular Hemoglobin 30.8 pg (25-34); Mean Corpuscular Hgb Conc 32.5 g/dL (32-36); Mean Corpuscular Volume 94.6 fL (80-100); Mean Platelet Volume 10.3 fL (7.4-10.4); Monocytes # (auto) 1.07 K/uL (0.11-0.59); Monocytes % (auto) 12.9 %; Neutrophils # (auto) 5.11 K/uL (1.4-6.5); Neutrophils % (auto) 61.6 %; Platelet Count 292 K/uL (130-400); RDW Coefficient of Variation 14.8 % (11.5-14.5); RDW Standard Deviation 50.7 fL (36.4-46.3); Red Blood Count 3.51 M/uL (4.2-5.4); White Blood Count 8.29 K/uL (4.8-10.8)
[2018-12-07 07:54] LABS: Calcium 8.8 mg/dl (8.5-10.1); Creatinine Clr Calc Pharmacy 25.3 ml/min; Est GFR (African American) 34.9; Est GFR (Non-African American) 30.2
[2018-12-07] MEDS: INSULIN ASPART 100 UNITS/ML 3 ML PEN SC SCH ×4 (08:35→21:41)
[2018-12-07] MEDS: METOPROLOL TARTRATE 50 MG TAB PO SCH ×2 (08:36→21:39)
[2018-12-07] MEDS: FOLIC ACID 1 MG TAB PO SCH (08:36)
[2018-12-07] MEDS: ATORVASTATIN 40 MG TAB PO SCH (08:36)
[2018-12-07] MEDS: ISOSORBIDE MONO EXTENDED REL 30 MG TABCR PO SCH (08:37)
[2018-12-07] MEDS: PANTOprazole 40 MG TAB PO SCH (08:37)
[2018-12-07] MEDS: CLOPIDOGREL BISULFATE 75 MG TAB PO SCH (08:37)
[2018-12-07] MEDS: TOPIRAMATE 25 MG TAB PO SCH (08:37)
[2018-12-07] MEDS: DOCUSATE SODIUM 100 MG CAP PO SCH ×2 (08:37→21:40)
[2018-12-07] MEDS: CHOLECALCIFEROL 1,000 UNITS TAB PO SCH (08:38)
[2018-12-07] MEDS: GABAPENTIN 100 MG CAP PO SCH (08:38)
[2018-12-07] MEDS: POLYETHYLENE (MIRALAX) 17 GM PACK PO SCH ×2 (08:38→21:45)
[2018-12-07] MEDS: LISINOPRIL 10 MG TAB PO SCH (08:49)
[2018-12-07] MEDS: HEPARIN SODIUM/DEXTROSE 25,000 UNITS/500 ML BAG IV SCH (11:19)
--- NOTE | 2018-12-07 13:58 | Medical Student Progress Note ---
Date of Service December 07, 2018 Results & Data Vital Signs (Past 12 Hours) Vital Signs Temp Pulse Pulse Pulse Resp BP BP 12/07/18 12:00 37.3 C 61 22 116/63 12/07/18 08:00 67 12/07/18 07:00 36.8 C 70 16 163/75 H 12/07/18 04:00 36.6 C 62 153/77 H Pulse Ox 12/07/18 12:00 100 12/07/18 08:00 12/07/18 07:00 97 12/07/18 04:00 99
--- NOTE | 2018-12-07 14:05 | Medical Student H&P ---
Date of Service December 07, 2018 Assessment & Plan (1) Abscess of right foot: Assessment erythema has improved, minimal discharge present. daptomycin seems to be working well. Plan Ortho was consulted. Decided against inpatient debridement procedure due to patients age and recent stroke and adverse cardiac event history. Patient will be prescribed linezolid 600 mg BID for 14 days to treat infection. Patient will follow up with Ortho in one to two weeks for wound cleaning on outpatient basis. Follow up with primary care provider to ensure the patients diabetes is under control Present on Admission?: Yes (2) Hemianopia, homonymous, left: Assessment Patients vision has improved in the lass 24 hours. She still has major visual field deficits predominantly in the lower left quadrants of each eye. Plan is for the patient to follow up with an paint mixer hand for accurate measurement of visual field deficit and consult about vision therapy. (3) HTN (hypertension): Assessment- Patients systolic blood pressure has ranged from the 120's to the 150's through out most of her hospital stay. Plan- Restart her lisinopril at 10mg daily and increase her dose of metoprolol to 75 mg BID. (4) CVA (cerebral vascular accident): Assessment- Patient suffered a bilateral occipital lobe stroke. She has developed left homonymous hemianopsia as a result of this stroke. Her vision has improved since her stroke however she still has major vision deficits mainly in the lower left quadrant of each eye. Her history of CVA, hypertension, hyperlipidemia and diabetes also put her at high risk for developing another stroke Plan- Discharge patient to [facility]. Physical therapy will help her regain strength and mobility. Patient will be anticoagulated with clopidogrel 75mg daily to help prevent a embolic CVA. Patient was restarted on lisinopril and prescribed metoprolol to control hypertension and decrease risk of stroke. Patient should follow up with primary care provider 1-2 weeks following rehab stay to ensure that her hypertension, diabetes is well managed. CVA mechanism: embolism Laterality of affected vessel: bilateral Precerebral and cerebral artery: posterior cerebral artery Qualified Code(s): I63.433 - Cerebral infarction due to embolism of bilateral posterior cerebral arteries (5) Stress-induced cardiomyopathy: Assessment- Patient most likely suffering from stress induced cardiomyopathy. Plan- Discharge patient to [facility] facility. Physical therapy will help her regain strength and mobility. Exercise will help increase her cardiovascular reserve. Patient will also be prescribed metoprolol 75 mg BID. History of Present Illness Primary Care Provider: 83 y/o female with a history of diabetes with polyneuropathy anemia and a CVA's presented to the E/D on November with chest pain, back pain that radiated down her left arm. Her troponin was elevated at 14 [address] EKG showed st elevation and t wave inversions. She was then admitted. The plan was to mange her medically. She was treated with a 500 ml saline bolus and nitroprusside She continued to have chest pain and and a left heart catheterization was performed. This showed that the 70% stenosis of the LAD,95% stenosis of the RAD and 60-70% stenosis of the circumflex. Carineeint was diagnosed with stress induced cardiomyopathy by cardiology. On December 05 she developed another bout of chest pain and dense bilateral field deficits. She was found to have a dense left homonymous hemianopsia. MRI of the head showed evidence of occipital lobe infarcts. She was found to have two probable diabetic foot ulcers on the ventral aspect of her right foot. This ulcer began forming about 3 months ago. She said this was caused by the foot brace that she was wearing for her foot drop. She said that the brace did not fit her right and that it caused irritated her foot which led to her developing an ulcer. Shayla was unsure of what her last Hba1c was and could not tell me what her average blood glucose levels are. Today the patient is feeling well. She participated in PT yesterday. She was able to get out of her bed with assistance yesterday and was able to take two steps to the front, back and both sides. She felt fatigued after her PT but she did not have any SOB or chest pain. She notes that her vision seems better today and that she is able to see the clock and her food and feed herself which is an improvement from yesterday. Allergies Allergy/AdvReac Type Severity Reaction Status Date / Time acetaminophen Allergy Unknown SWEATING Verified 12/01/18 22:36 amitriptyline Allergy Unknown BLURRED Verified 12/01/18 22:36 DOUBLE VISION Cipro Allergy Unknown itshiness,red Verified 06/25/16 17:42 streak ciprofloxacin Allergy Unknown itshiness,red Verified 12/01/18 22:36 streak gabapentin Allergy Unknown SHAKES,VISION Verified 12/01/18 22:36 CHANGES guaifenesin Allergy Unknown UNKNOWN Verified 12/01/18 22:36 latex Allergy Unknown SKIN GETS Verified 12/01/18 22:36 RAW-PT HAS NO RECOLLECTION meloxicam Allergy Unknown DIARRHEA Verified 12/01/18 22:36 metformin Allergy Unknown HOT FLASHES Verified 12/01/18 22:36 metronidazole Allergy Unknown UNKNOWN Verified 12/01/18 22:36 Penicillins Allergy Unknown INJECTION Verified 11/23/18 09:16 UNKNOWN pioglitazone Allergy Unknown SORE Verified 11/23/18 09:16 THROAT,EAts excessively pregabalin Allergy Unknown DIZZINESS, Verified 11/23/18 09:16 SLEEPY rofecoxib Allergy Unknown UNKNOWN Verified 11/23/18 09:16 rosuvastatin Allergy Unknown UNKNOWN Verified 11/23/18 09:16 simvastatin Allergy Unknown UNKNOWN Verified 11/11/18 10:30 Sulfa (Sulfonamide Allergy Unknown HIVES Verified 11/11/18 10:30 Antibiotics) tramadol Allergy Unknown SWEATING Verified 11/11/18 10:30 Home Medications Home Medications Medication Instructions Recorded Confirmed Type atorvastatin 40 mg tablet 40 mg PO QAM tab 06/28/18 12/01/18 History clopidogrel 75 mg tablet 75 mg PO DAILY 06/28/18 12/01/18 History furosemide 20 mg tablet 20 mg PO BID 06/28/18 12/01/18 History insulin aspart (U-100) 100 unit/mL 4 - 6 units SQ TIDM ml 06/28/18 12/01/18 History (3 mL) subcutaneous pen insulin glargine (U- 100) 100 12 units SQ HS ml 06/28/18 12/01/18 History unit/mL subcutaneous solution metoprolol tartrate 75 mg tablet 75 mg PO BID 06/28/18 12/01/18 History tramadol 50 mg tablet 50 mg PO Q8H PRN 10/19/18 12/01/18 History blood sugar diagnostic strips #10 ea 11/05/18 12/01/18 History topiramate 25 mg tablet 25 mg PO DAILY #30 tab 11/05/18 12/01/18 History cholecalciferol (vitamin D3) 1,000 unit PO DAILY 12/01/18 12/01/18 History [Vitamin D3] gabapentin 100 mg PO DAILY 12/01/18 12/01/18 History lisinopril 10 mg PO DAILY 12/01/18 12/01/18 History pantoprazole [Protonix] 40 mg PO DAILY 12/01/18 12/01/18 History linezolid 600 mg PO BID 14 Days #28 tab 12/07/18 Rx Past Med/Surg History Medical History Chronic kidney disease, stage 3 (Chronic) HTN (hypertension) (Chronic) Diabetes mellitus with diabetic polyneuropathy (Acute) Ulcer of right heel (Acute) Anxiety associated with depression (Chronic) Benign recurrent vertigo (Chronic) Bilateral foot-drop (Chronic) Blood clotting disorder (Chronic) Chronic GERD (Chronic) Diabetes mellitus type 2 with complications, uncontrolled (Chronic) Gastritis (Chronic) H/O diastolic dysfunction (Chronic) H/O: CVA (cerebrovascular accident) (Chronic) Hyperlipidemia (Chronic) Hypokalemia (Chronic) Memory loss (Chronic) Nephropathy (Chronic) Neurologic gait dysfunction (Chronic) Osteoarthritis (Chronic) Polyarthritis (Chronic) Resting tremor (Chronic) Right lumbar radiculopathy (Chronic) Sleep apnea (Chronic) Stenosis of right carotid artery (Chronic) Urinary frequency (Chronic) Vitamin D deficiency (Chronic) Weight disorder (Chronic) Cataract (Resolved) Cholecystectomy planned (Resolved) H/O: hysterectomy (Resolved) Surgical History S/P cholecystectomy S/P hysterectomy S/P tonsillectomy Hx of tonsillectomy (Resolved) Family History Mother , in her 80s of a cerebral aneurysm Heart disease Stroke Tremor Father , in his 80s of heart disease Heart disease Other No pertinent family history Social History Preferred Language: Maltese Communication Ability: Effective Visual Impairment: No Limitations Hearing Ability: Hard of Hearing Product Development Director Required: No Beliefs That Will Affect Care: None marital status: Current Living Situation: Spouse current occupational status: retired other: 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 [employer] Feels Safe at Home: Yes Smoking Status: Never smoker Hx Alcohol Use: No Hx Substance Use: No Review of Systems no fever and no chills no diplopia no dyspnea no chest pain, no chest pain at rest, no dyspnea, no orthopnea, no lightheadedness, no syncope and no calf pain no abdominal pain, no nausea, no vomiting, no diarrhea/loose stools, no blood in stools and no melena no dysuria, no difficulty urinating and no urinary hesitancy no dizziness and no headache(s) Physical Exam Eyes: PERRL, conjunctivae normal, anicteric sclerae normal accommodation; no nystagmus Neck: trachea midline, no thyromegaly Respiratory: normal respiratory effort, lungs clear to auscultation Cardiovascular: Rate/Rhythm: regular rate and regular rhythm Heart Sounds: normal S1 and normal S2; no murmur and no cardiac rub Palpation: normal PMI Vessels: normal peripheral pulses; no carotid bruit Gastrointestinal (Abdomen): normal bowel sounds, soft, nontender, no hepatosplenomegaly Musculoskeletal: Extremities: + limited ROM of lower extremity Upper extremities strength 4/5 dorsiflexion strength 0/5 Results & Data Vital Signs (Past 12 Hours) Vital Signs Temp Pulse Pulse Pulse Resp BP BP 12/07/18 12:00 37.3 C 61 22 116/63 12/07/18 08:00 67 12/07/18 07:00 36.8 C 70 16 163/75 H 12/07/18 04:00 36.6 C 62 153/77 H Pulse Ox 12/07/18 12:00 100 12/07/18 08:00 12/07/18 07:00 97 12/07/18 04:00 99 Code Status & VTE Plan VTE Prophylaxis Plan VTE Prophylaxis will be ordered: Yes
--- NOTE | 2018-12-07 16:09 | Hospitalist Progress Note ---
Date of Service December 07, 2018 Assessment & Plan (1) Stress-induced cardiomyopathy: Presented with chest pain, elevated troponin to 14, with mildly reduced LVEF at 40-45% with akinetic LV apex Cardiac catheterization showed severe multivessel CAD with no acute blockages Cardiology feels that this is most likely consistent with stress-induced cardiomyopathy rather than a true acute coronary syndrome at this point -Due to akinetic LV apex and stroke, most likely had an LV thrombus that embolized Limited echo without evidence of LV thrombus but high risk for recurrence -Restarted heparin drip and will now convert to Eliquis as there is no surgery planned in the near future--> needs Eliquis renally dosed at 2.5mg po bid x 1 month at least -Plan is for anticoagulation for at least 1 month with repeat echo at that time -SHe will need close outpatient cardiology follow-up (2) Multi-vessel coronary artery stenosis: With severe multivessel disease, not amenable to stenting, with NSTEMI vs stress-induced CM as above, trop up to 14 on admission and trended downward -Appreciate cardiology consultation -Continue Plavix but not aspirin as do not want to be on triple therapy (with Eliquis) -On heparin drip as above but converting to Eliquis and Plavix alone -Continue metoprolol, lisinopril, atorvastatin, Imdur (3) Acute IN: Presented with NSTEMI. Troponin peaked at 14 on admission, and then downtrending since. Now likely consistent with stress-induced cardiomyopathy as above With 2 episodes of left-sided chest pain with radiation on the left arm each on the mornings of 12/04 and 12/05, self resolving Troponin on 12/05 is 0.9 and 0.8, ECG remains with diffuse inferolateral T wave inversions similar to previous Echocardiogram 12/04 with LVEF 40-45%, apical and mid septal akinesis, hypokinetic mid anterior, mid anteroseptal kumar, no LV thrombus No further chest pain since receiving PRBCs Appreciate cardiology consultation - Cardiac cath on 12/02 showed diffuse disease -> Culprit for IN thought to be a transient LAD lesion vs. stress-induced cardiomyopathy - Finished heparin gtt on 12/03, was then restarted for ongoing angina and possible embolic CVA on 12/04---> troponin continued to trend downward--> dcd heparin gtt to reduce risk of hemorrhagic conversion -However, after further discussion with cardiology and neurology, her risk for hemorrhagic conversion is lower at this point she is several days out from her stroke-then restarted heparin drip due to high risk for recurrence of LV thrombus due to akinetic LV apex--> converting to Eliquis now - Continue Plavix for medical management of severe CAD, but also for acute CVA and history of vertebral artery occlusion - Continue beta-eileen and increased dose to 100 mg p.o. twice daily for antianginal effect, continue statin - Started Imdur 30 mg daily on 12/04 -started lisinopril 10mg daily (from home, previously on hold) (4) CVA (cerebral vascular accident): Hx of CVA and previously on Plavix. She was at Coumadin at some point in the past for vertebral artery stenosis but was discontinued when she had a GI bleed. 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 The left distal vertebral is likely occluded. However with likely thrombus from the akinetic LV apex as above is most likely culprit as per cardiology-restarted heparin drip with transition to Eliquis as above She has no atrial fibrillation or flutter on telemetry. Clinically she has a dense left homonymous hemianopia as per neuro but is contin uing to improve daily - Continue Plavix, statin, anticoagulation as above -Permissive hypertension at this point, but increased metoprolol as above for antianginal effect, added lisinopril back on--> will watch blood pressures and try to keep MAP around 90-95 -Appreciate neurology consultation -PT/OT/speech therapy all ordered--> plan for rehab placement -Monitor for hemorrhagic conversion and/or new strokes (5) Diabetic foot ulcer associated with type 2 diabetes mellitus: Likely osteitis R foot with possible developing abscess/phlegmon. MRI foot on 12/02 showed a partially loculated fluid collection which abuts the cortex of the calcaneus and measures approximately 1.3 cm. Cefepime was stopped on 12/03 because all culture are growing Gram(+) organisms Wound culture growing Enterococcus faecalis and coag negative staph Pain in the heel is significantly improved and she has no systemic symptoms at this point -Continue IV daptomycin until discharge, but as per discussion with ID and due to her penicillin allergy, will switch to oral linezolid upon discharge - Ortho - Appreciate assistance-orthopedics recommending surgical incision and drainage, however remains high risk at this time due to recent NSTEMI and acute CVA-orthopedics plans to defer surgery for at least 1 to 2 weeks with continued antibiotics after discharge -Will need close follow-up with orthopedics after discharge -monitor CK while on dapto and statin Anesthesia was consulted and they could perform her surgery with a popliteal nerve block and local sedation if needed, but will defer at this time as above (6) Anemia: Likely secondary to chronic disease and kidney disease. Hemoglobin was 9.7 on admission and then down to 7.9. Per outside lab was 9.3 in November 16, 2018. MCV is borderline macrocytic Now status post 2 units PRBCs on 12/05 and significant improved hemoglobin at 10.8 No further angina Folate also low at 5-replace B12 normal -Follow CBC in the morning - fecal occult blood pending -Transfuse to keep hemoglobin greater than 8-9 given recent IN and CVA (7) Chronic kidney disease, stage 3: Acute kidney failure on CKD. Baseline Cr is unknown, though her Cr. has trended down from 2.4 on admission down to 1.59 and remains stable -continue lisinopril - Monitor BMP -Continue holding home furosemide-not volume overloaded at this time (8) Peripheral arterial disease: Has some evidence of decreased ABIs on testing here, arterial Doppler of the right lower extremity with focal stenosis in the distal popliteal artery, however has good three-vessel runoff to the foot -Continue Plavix, statin -Appreciate cardiology input-no need for intervention at this point (9) Stage II pressure ulcer of buttock: Wound care following (10) HTN (hypertension): Allowing permissive hypertension with goal MAP 95 -continue lisinopril and continuing to hold furosemide -Increased metoprolol to 100 mg p.o. twice daily as above -Follow blood pressures (11) Hyperlipidemia: - Continue statin (12) ERNST (obstructive sleep apnea): -Continue CPAP nightly (13) Folate deficiency anemia: Folate is deficient at 5 -Started folic acid 1 mg p.o. once daily (14) Diabetic polyneuropathy: Chronic for many years, with bilateral foot drop -Continue gabapentin, Topamax (15) Hemianopia, homonymous, left: Secondary to acute occipital lobe CVAs as above (16) DVT prophylaxis: Heparin drip with transition to Eliquis Disposition-remain on PCU/telemetry PT/OT consults placed-recommending SNF/rehab Referral placed to [facility] today-awaiting placement, likely medically stable for discharge tomorrow Subjective Feeling very well today. Feels her vision is improving; she was able to see the food on her tray today. SHe is joking around more today and denies any further chest pain. SHe is agreeable to rehab placement. No pain in her right heel. Tele with NSR, rates 60-70s Review of Systems Review of Systems: All systems reviewed & are unremarkable except as noted in HPI & below Physical Exam Constitutional: well developed; no acute distress Eyes: + anicteric sclerae Neck: trachea midline, no thyromegaly Respiratory: normal respiratory effort, lungs clear to auscultation Cardiovascular: RRR, no murmur, no edema Gastrointestinal (Abdomen): normal bowel sounds, soft, nontender, no hepatosplenomegaly Musculoskeletal: Extremities: no cyanosis and no clubbing Skin: no rashes, warm and dry Neurologic: moves all extremities (except bilat foot drop) and awake Psychiatric: A+Ox3, euthymic affect Results & Data Vital Signs (Past 12 Hours) Vital Signs Temp Pulse Pulse Resp BP Pulse Ox 12/07/18 12:00 37.3 C 61 22 116/63 100 12/07/18 08:00 67 12/07/18 07:00 36.8 C 70 16 163/75 H 97 Laboratory Results 12/07/18 12/07/18 12/07/18 Range/Units 16:35 11:17 07:36 WBC (4.8-10.8) K/uL RBC (4.2-5.4) M/uL Hgb (12.0-16.0) g/dL Hct (37-47) % MCV (80-100) fL MCH (25-34) pg MCHC (32-36) g/dL RDW Std Deviation (36.4-46.3) fL RDW Coeff of Ciera (11.5-14.5) % Plt Count (130-400) K/uL MPV (7.4-10.4) fL Immature Gran % (Auto) % Neut % (Auto) % Lymph % (Auto) % [place] % (Auto) % Eos % (Auto) % Baso % (Auto) % Immature Gran # (Auto) (0.00-0.02) K/uL Neut # (Auto) (1.4-6.5) K/uL Lymph # (Auto) (1.2-3.4) K/uL [place]land # (Auto) (0.11-0.59) K/uL Eos # (Auto) (0-0.5) K/uL Baso # (Auto) (0-0.2) K/uL APTT (21.0-31.0) Seconds PTT Ratio Sodium (136-145) mmol/L Potassium (3.5-5.1) mmol/L Chloride (98-107) mmol/L Carbon Dioxide (21-32) mmol/L Anion Gap (3-11) BUN (7-18) mg/dl Creatinine (0.6-1.2) mg/dl Est Cr Clr Drug Dosing ml/min Est GFR ( Amer) Est GFR (Non-Af Amer) BUN/Creatinine Ratio (10-20) Glucose (70-99) mg/dl POC Glucose 162 H 134 H 102 H (70-99) Calcium (8.5-10.1) mg/dl Crossmatch 12/07/18 12/07/18 12/07/18 Range/Units 05:08 05:08 05:07 WBC 8.29 (4.8-10.8) K/uL RBC 3.51 L (4.2-5.4) M/uL Hgb 10.8 L (12.0-16.0) g/dL Hct 33.2 L (37-47) % MCV 94.6 (80-100) fL MCH 30.8 (25-34) pg MCHC 32.5 (32-36) g/dL RDW Std Deviation 50.7 H (36.4-46.3) fL RDW Coeff of Ciera 14.8 H (11.5-14.5) % Plt Count 292 (130-400) K/uL MPV 10.3 (7.4-10.4) fL Immature Gran % (Auto) 0.6 % Neut % (Auto) 61.6 % Lymph % (Auto) 19.3 % Highland % (Auto) 12.9 % Eos % (Auto) 5.1 % Baso % (Auto) 0.5 % Immature Gran # (Auto) 0.05 H (0.00-0.02) K/uL Neut # (Auto) 5.11 (1.4-6.5) K/uL Lymph # (Auto) 1.60 (1.2-3.4) K/uL Highland # (Auto) 1.07 H (0.11-0.59) K/uL Eos # (Auto) 0.42 (0-0.5) K/uL Baso # (Auto) 0.04 (0-0.2) K/uL APTT 49.7 H* (21.0-31.0) Seconds PTT Ratio 1.8 Sodium 138 (136-145) mmol/L Potassium 5.0 (3.5-5.1) mmol/L Chloride 109 H (98-107) mmol/L Carbon Dioxide 21 (21-32) mmol/L Anion Gap 8.0 (3-11) BUN 36 H (7-18) mg/dl Creatinine 1.58 H (0.6-1.2) mg/dl Est Cr Clr Drug Dosing 25.3 ml/min Est GFR ( Amer) 34.9 Est GFR (Non-Af Amer) 30.2 BUN/Creatinine Ratio 23.0 H (10-20) Glucose 97 (70-99) mg/dl POC Glucose (70-99) Calcium 8.8 (8.5-10.1) mg/dl Crossmatch 12/06/18 12/05/18 Range/Units 20:21 08:43 WBC (4.8-10.8) K/uL RBC (4.2-5.4) M/uL Hgb (12.0-16.0) g/dL Hct (37-47) % MCV (80-100) fL MCH (25-34) pg MCHC (32-36) g/dL RDW Std Deviation (36.4-46.3) fL RDW Coeff of Ciera (11.5-14.5) % Plt Count (130-400) K/uL MPV (7.4-10.4) fL Immature Gran % (Auto) % Neut % (Auto) % Lymph % (Auto) % [place] % (Auto) % Eos % (Auto) % Baso % (Auto) % Immature Gran # (Auto) (0.00-0.02) K/uL Neut # (Auto) (1.4-6.5) K/uL Lymph # (Auto) (1.2-3.4) K/uL [place]land # (Auto) (0.11-0.59) K/uL Eos # (Auto) (0-0.5) K/uL Baso # (Auto) (0-0.2) K/uL APTT (21.0-31.0) Seconds PTT Ratio Sodium (136-145) mmol/L Potassium (3.5-5.1) mmol/L Chloride (98-107) mmol/L Carbon Dioxide (21-32) mmol/L Anion Gap (3-11) BUN (7-18) mg/dl Creatinine (0.6-1.2) mg/dl Est Cr Clr Drug Dosing ml/min Est GFR ( Amer) Est GFR (Non-Af Amer) BUN/Creatinine Ratio (10-20) Glucose (70-99) mg/dl POC Glucose 147 H (70-99) Calcium (8.5-10.1) mg/dl Crossmatch See Detail PG Care Time/CCT Total # of Minutes Spent Total Time Spent with Patient: Total time spent is greater than 50% in coordination of care (as documented) at patient's floor/unit and/or counseling patient: (1) Stage II pressure ulcer of buttock Laterality: left Qualified Code(s): L89.322 - Pressure ulcer of left buttock, stage 2 (2) Diabetic foot ulcer associated with type 2 diabetes mellitus Diabetic foot ulcer location: heel Laterality: right Non-pressure ulcer stage: with fat layer exposed Qualified Code(s): E11.621 - Type 2 diabetes mellitus with foot ulcer; L97.412 - Non-pressure chronic ulcer of right heel and midfoot with fat layer exposed (3) Acute IN Involved coronary artery: unspecified coronary artery Myocardial infarction type: unspecified Qualified Code(s): I21.9 - Acute myocardial infarction, unspecified (4) Anemia Anemia type: unspecified type Qualified Code(s): D64.9 - Anemia, unspecified (5) CVA (cerebral vascular accident) CVA mechanism: embolism Laterality of affected vessel: bilateral Precerebral and cerebral artery: posterior cerebral artery Qualified Code(s): I63.433 - Cerebral infarction due to embolism of bilateral posterior cerebral arteries
[2018-12-07] MEDS: INSULIN GLARGINE SOLOSTAR 100 UNITS/ML 3 ML PEN SQ SCH (21:40)
[2018-12-07] MEDS: APIXABAN 2.5 MG TAB PO SCH (21:40)
[2018-12-08] MEDS: DAPTOmycin 300 MG in SYRINGE 0 ML IV SCH (06:20)
[2018-12-08 07:23] LABS: Basophils # (auto) 0.04 K/uL (0-0.2); Basophils % (auto) 0.6 %; Eosinophils % (auto) 4.1 %; Hematocrit (blood only) 32.9 % (37-47); Hemoglobin 10.5 g/dL (12.0-16.0); Immature Granulocytes # (auto) 0.03 K/uL (0.00-0.02); Immature Granulocytes % (auto) 0.4 %; Lymphocytes # (auto) 1.51 K/uL (1.2-3.4); Lymphocytes % (auto) 20.9 %; Mean Corpuscular Hemoglobin 30.1 pg (25-34); Mean Corpuscular Hgb Conc 31.9 g/dL (32-36); Mean Corpuscular Volume 94.3 fL (80-100); Mean Platelet Volume 9.9 fL (7.4-10.4); Neutrophils # (auto) 4.56 K/uL (1.4-6.5); Platelet Count 291 K/uL (130-400); RDW Coefficient of Variation 14.6 % (11.5-14.5); RDW Standard Deviation 49.7 fL (36.4-46.3); Red Blood Count 3.49 M/uL (4.2-5.4); White Blood Count 7.24 K/uL (4.8-10.8)
[2018-12-08] MEDS: INSULIN ASPART 100 UNITS/ML 3 ML PEN SC SCH ×4 (07:53→21:12)
[2018-12-08] MEDS: METOPROLOL TARTRATE 50 MG TAB PO SCH ×2 (07:54→21:11)
[2018-12-08] MEDS: APIXABAN 2.5 MG TAB PO SCH ×2 (07:54→21:09)
[2018-12-08] MEDS: CLOPIDOGREL BISULFATE 75 MG TAB PO SCH (07:55)
[2018-12-08] MEDS: GABAPENTIN 100 MG CAP PO SCH (07:55)
[2018-12-08] MEDS: LISINOPRIL 10 MG TAB PO SCH (07:55)
[2018-12-08] MEDS: CHOLECALCIFEROL 1,000 UNITS TAB PO SCH (07:55)
[2018-12-08] MEDS: ATORVASTATIN 40 MG TAB PO SCH (07:55)
[2018-12-08] MEDS: FOLIC ACID 1 MG TAB PO SCH (07:56)
[2018-12-08] MEDS: TOPIRAMATE 25 MG TAB PO SCH (07:56)
[2018-12-08] MEDS: POLYETHYLENE (MIRALAX) 17 GM PACK PO SCH ×2 (07:56→21:12)
[2018-12-08] MEDS: PANTOprazole 40 MG TAB PO SCH (07:56)
[2018-12-08] MEDS: ISOSORBIDE MONO EXTENDED REL 30 MG TABCR PO SCH (07:56)
[2018-12-08 08:00] LABS: BUN Creatinine Ratio 19.9 (10-20); Calcium 8.7 mg/dl (8.5-10.1); Creatinine Clr Calc Pharmacy 26.8 ml/min; Est GFR (African American) 36.3; Est GFR (Non-African American) 31.4; Potassium 5.6 mmol/L (3.5-5.1)
[2018-12-08] MEDS: DOCUSATE SODIUM 100 MG CAP PO SCH ×2 (08:00→21:09)
--- NOTE | 2018-12-08 10:10 | Medical Student H&P ---
Date of Service December 08, 2018 Assessment & Plan (1) Stress-induced cardiomyopathy: Presented with chest pain, elevated troponin to 14, with mildly reduced LVEF at 40-45% with akinetic LV apex Cardiac catheterization showed severe multivessel CAD with no acute blockages Cardiology feels that this is most likely consistent with stress-induced cardiomyopathy rather than a true acute coronary syndrome at this point -Due to akinetic LV apex and stroke, most likely had an LV thrombus that embolized Limited echo without evidence of LV thrombus but high risk for recurrence -Restarted heparin drip and will now convert to Eliquis as there is no surgery planned in the near future--> needs Eliquis renally dosed at 2.5mg po bid x 1 month at least -Plan is for anticoagulation for at least 1 month with repeat echo at that time -SHe will need close outpatient cardiology follow-up (2) Multi-vessel coronary artery stenosis: With severe multivessel disease, not amenable to stenting, with NSTEMI vs stress-induced CM as above, trop up to 14 on admission and trended downward -Appreciate cardiology consultation -Continue Plavix but not aspirin as do not want to be on triple therapy (with Eliquis) -On heparin drip as above but converting to Eliquis and Plavix alone -Continue metoprolol, lisinopril, atorvastatin, Imdur (3) Acute CO: Presented with NSTEMI. Troponin peaked at 14 on admission, and then downtrending since. Now likely consistent with stress-induced cardiomyopathy as above With 2 episodes of left-sided chest pain with radiation on the left arm each on the mornings of 12/04 and 12/05, self resolving Troponin on 12/05 is 0.9 and 0.8, ECG remains with diffuse inferolateral T wave inversions similar to previous Echocardiogram 12/04 with LVEF 40-45%, apical and mid septal akinesis, hypokinetic mid anterior, mid anteroseptal kumar, no LV thrombus No further chest pain since receiving PRBCs Appreciate cardiology consultation - Cardiac cath on 12/02 showed diffuse disease -> Culprit for CO thought to be a transient LAD lesion vs. stress-induced cardiomyopathy - Finished heparin gtt on 12/03, was then restarted for ongoing angina and possible embolic CVA on 12/04---> troponin continued to trend downward--> dcd heparin gtt to reduce risk of hemorrhagic conversion -However, after further discussion with cardiology and neurology, her risk for hemorrhagic conversion is lower at this point she is several days out from her stroke-then restarted heparin drip due to high risk for recurrence of LV thrombus due to akinetic LV apex--> converting to Eliquis now - Continue Plavix for medical management of severe CAD, but also for acute CVA and history of vertebral artery occlusion - Continue beta-eileen and increased dose to 100 mg p.o. twice daily for antianginal effect, continue statin - Started Imdur 30 mg daily on 12/04 -started lisinopril 10mg daily (from home, previously on hold) Involved coronary artery: unspecified coronary artery Myocardial infarction type: unspecified Qualified Code(s): I21.9 - Acute myocardial infarction, unspecified (4) CVA (cerebral vascular accident): Hx of CVA and previously on Plavix. She was at Coumadin at some point in the past for vertebral artery stenosis but was discontinued when she had a GI bleed. 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 The left distal vertebral is likely occluded. However with likely thrombus from the akinetic LV apex as above is most likely culprit as per cardiology-restarted heparin drip with transition to Eliquis as above She has no atrial fibrillation or flutter on telemetry. Clinically she has a dense left homonymous hemianopia as per neuro but is continuing to improve daily - Continue Plavix, statin, anticoagulation as above -Permissive hypertension at this point, but increased metoprolol as above for antianginal effect, added lisinopril back on--> will watch blood pressures and try to keep MAP around 90-95 -Appreciate neurology consultation -PT/OT/speech therapy all ordered--> plan for rehab placement -Monitor for hemorrhagic conversion and/or new strokes CVA mechanism: embolism Precerebral and cerebral artery: posterior cerebral artery Laterality of affected vessel: bilateral Qualified Code(s): I63.433 - 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 MRI foot on 12/02 showed a partially loculated fluid collection which abuts the cortex of the calcaneus and measures approximately 1.3 cm. Cefepime was stopped on 12/03 because all culture are growing Gram(+) organisms Wound culture growing Enterococcus faecalis and coag negative staph Pain in the heel is significantly improved and she has no systemic symptoms at this point -Continue IV daptomycin until discharge, but as per discussion with ID and due to her penicillin allergy, will switch to oral linezolid upon discharge - Ortho - Appreciate assistance-orthopedics recommending surgical incision and drainage, however remains high risk at this time due to recent NSTEMI and acute CVA-orthopedics plans to defer surgery for at least 1 to 2 weeks with continued antibiotics after discharge -Will need close follow-up with orthopedics after discharge -monitor CK while on dapto and statin Anesthesia was consulted and they could perform her surgery with a popliteal nerve block and local sedation if needed, but will defer at this time as above Diabetic foot ulcer location: heel Laterality: right Non- pressure ulcer stage: with fat layer exposed Qualified Code(s): E11.621 - Type 2 diabetes mellitus with foot ulcer; L97.412 - Non-pressure chronic ulcer of right heel and midfoot with fat layer exposed (6) Anemia: Likely secondary to chronic disease and kidney disease. Hemoglobin was 9.7 on admission and then down to 7.9. Per outside lab was 9.3 in November 16, 2018. MCV is borderline macrocytic Now status post 2 units PRBCs on 12/05 and significant improved hemoglobin at 10.8 No further angina Folate also low at 5-replace B12 normal -Follow CBC in the morning - fecal occult blood pending -Transfuse to keep hemoglobin greater than 8-9 given recent CO and CVA Anemia type: unspecified type Qualified Code(s): D64.9 - Anemia, unspecified (7) Chronic kidney disease, stage 3: Acute kidney failure on CKD. Baseline Cr is unknown, though her Cr. has trended down from 2.4 on admission down to 1.59 and remains stable -continue lisinopril - Monitor BMP -Continue holding home furosemide-not volume overloaded at this time (8) Peripheral arterial disease: Has some evidence of decreased ABIs on testing here, arterial Doppler of the right lower extremity with focal stenosis in the distal popliteal artery, however has good three-vessel runoff to the foot -Continue Plavix, statin -Appreciate cardiology input-no need for intervention at this point (9) Stage II pressure ulcer of buttock: Wound care following Laterality: left Qualified Code(s): L89.322 - Pressure ulcer of left buttock, stage 2 (10) HTN (hypertension): Allowing permissive hypertension with goal MAP 95 -continue lisinopril and continuing to hold furosemide -Increased metoprolol to 100 mg p.o. twice daily as above -Follow blood pressures (11) Hyperlipidemia: - Continue statin (12) ERNST (obstructive sleep apnea): -Continue CPAP nightly (13) Folate deficiency anemia: Folate is deficient at 5 -Started folic acid 1 mg p.o. once daily (14) Diabetic polyneuropathy: Chronic for many years, with bilateral foot drop -Continue gabapentin, Topamax (15) Hemianopia, homonymous, left: Assessment Patients vision has improved in the lass 24 hours. She still has major visual field deficits predominantly in the lower left quadrants of each eye. Plan is for the patient to follow up with an engineering job titles for accurate measurement of visual field deficit and consult about vision therapy. (16) DVT prophylaxis: Heparin drip with transition to Eliquis Disposition-remain on PCU/telemetry PT/OT consults placed-recommending SNF/rehab Referral placed to [facility] today-awaiting placement, likely medically stable for discharge tomorrow History of Present Illness Primary Care Provider: SEYMOUR Hoffman 83-year-old female with history of hypertension, hyperlipidemia, peripheral vascular disease, CKD 3, diabetes, CVA x2 with bilateral foot drop, ERNST on CPAP, spinal stenosis, right ICA stenosis presents with left arm and back pain x2 days. Reports left arm and back pain which started the night before. She had similar pain again after dinner. She took some coke thinking it might be acid reflux but it did not help her burp. Pain is severe and left arm into hand and also involves her back between her shoulder blades. Pain resolved after receiving nitro in the ED. Associated with vomiting yesterday; diarrhea yesterday and today, loose brown and nonbloody; chills; lightheadedness. Denies any fever, chest pain, shortness of breath, headache, abdominal pain, dysuria, hematuria. No recent falls. Per wound care notes patient has stage II ulcer on right plantar foot and stage II decubitus pressure ulcer. Today patient is feeling well. She Allergies Allergy/AdvReac Type Severity Reaction Status Date / Time acetaminophen Allergy Unknown SWEATING Verified 12/01/18 22:36 amitriptyline Allergy Unknown BLURRED Verified 12/01/18 22:36 DOUBLE VISION Cipro Allergy Unknown itshiness,red Verified 06/25/16 17:42 streak ciprofloxacin Allergy Unknown itshiness,red Verified 12/01/18 22:36 streak gabapentin Allergy Unknown SHAKES,VISION Verified 12/01/18 22:36 CHANGES guaifenesin Allergy Unknown UNKNOWN Verified 12/01/18 22:36 latex Allergy Unknown SKIN GETS Verified 12/01/18 22:36 RAW-PT HAS NO RECOLLECTION meloxicam Allergy Unknown DIARRHEA Verified 12/01/18 22:36 metformin Allergy Unknown HOT FLASHES Verified 12/01/18 22:36 metronidazole Allergy Unknown UNKNOWN Verified 12/01/18 22:36 Penicillins Allergy Unknown INJECTION Verified 11/23/18 09:16 UNKNOWN pioglitazone Allergy Unknown SORE Verified 11/23/18 09:16 THROAT,EAts excessively pregabalin Allergy Unknown DIZZINESS, Verified 11/23/18 09:16 SLEEPY rofecoxib Allergy Unknown UNKNOWN Verified 11/23/18 09:16 rosuvastatin Allergy Unknown UNKNOWN Verified 11/23/18 09:16 simvastatin Allergy Unknown UNKNOWN Verified 11/11/18 10:30 Sulfa (Sulfonamide Allergy Unknown HIVES Verified 11/11/18 10:30 Antibiotics) tramadol Allergy Unknown SWEATING Verified 11/11/18 10:30 Home Medications Home Medications Medication Instructions Recorded Confirmed Type atorvastatin 40 mg tablet 40 mg PO QAM tab 06/28/18 12/01/18 History clopidogrel 75 mg tablet 75 mg PO DAILY 06/28/18 12/01/18 History furosemide 20 mg tablet 20 mg PO BID 06/28/18 12/01/18 History insulin aspart (U-100) 100 unit/mL 4 - 6 units SQ TIDM ml 06/28/18 12/01/18 History (3 mL) subcutaneous pen insulin glargine (U- 100) 100 12 units SQ HS ml 06/28/18 12/01/18 History unit/mL subcutaneous solution metoprolol tartrate 75 mg tablet 75 mg PO BID 06/28/18 12/01/18 History tramadol 50 mg tablet 50 mg PO Q8H PRN 10/19/18 12/01/18 History blood sugar diagnostic strips #10 ea 11/05/18 12/01/18 History topiramate 25 mg tablet 25 mg PO DAILY #30 tab 11/05/18 12/01/18 History cholecalciferol (vitamin D3) 1,000 unit PO DAILY 12/01/18 12/01/18 History [Vitamin D3] gabapentin 100 mg PO DAILY 12/01/18 12/01/18 History lisinopril 10 mg PO DAILY 12/01/18 12/01/18 History pantoprazole [Protonix] 40 mg PO DAILY 12/01/18 12/01/18 History linezolid 600 mg PO BID 14 Days #28 tab 12/07/18 Rx Past Med/Surg History Medical History Chronic kidney disease, stage 3 (Chronic) HTN (hypertension) (Chronic) Diabetes mellitus with diabetic polyneuropathy (Acute) Ulcer of right heel (Acute) Anxiety associated with depression (Chronic) Benign recurrent vertigo (Chronic) Bilateral foot-drop (Chronic) Blood clotting disorder (Chronic) Chronic GERD (Chronic) Diabetes mellitus type 2 with complications, uncontrolled (Chronic) Gastritis (Chronic) H/O diastolic dysfunction (Chronic) H/O: CVA (cerebrovascular accident) (Chronic) Hyperlipidemia (Chronic) Hypokalemia (Chronic) Memory loss (Chronic) Nephropathy (Chronic) Neurologic gait dysfunction (Chronic) Osteoarthritis (Chronic) Polyarthritis (Chronic) Resting tremor (Chronic) Right lumbar radiculopathy (Chronic) Sleep apnea (Chronic) Stenosis of right carotid artery (Chronic) Urinary frequency (Chronic) Vitamin D deficiency (Chronic) Weight disorder (Chronic) Cataract (Resolved) Cholecystectomy planned (Resolved) H/O: hysterectomy (Resolved) Surgical History S/P cholecystectomy S/P hysterectomy S/P tonsillectomy Hx of tonsillectomy (Resolved) Family History Mother , in her 80s of a cerebral aneurysm Heart disease Stroke Tremor Father , in his 80s of heart disease Heart disease Other No pertinent family history Social History Preferred Language: French Communication Ability: Effective Visual Impairment: No Limitations Hearing Ability: Hard of Hearing Direct Selling Counselor Required: No Beliefs That Will Affect Care: None marital status: Current Living Situation: Spouse current occupational status: retired other: 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 [employer] Feels Safe at Home: Yes Smoking Status: Never smoker Hx Alcohol Use: No Hx Substance Use: No Review of Systems + hearing loss; no ear pain, no tinnitus, no dizziness, no snoring, no hoarseness and no dysphagia + joint pain; no back pain, no neck pain, no radicular pain and no myalgia + fatigue; no flushing + easy bruising; no easy bleeding Physical Exam Eyes: PERRL, conjunctivae normal, anicteric sclerae normal accommodation; no nystagmus Neck: trachea midline, no thyromegaly Respiratory: normal respiratory effort, lungs clear to auscultation Cardiovascular: Rate/Rhythm: regular rate and regular rhythm Heart Sounds: normal S1 and normal S2; no murmur and no cardiac rub Palpation: normal PMI Vessels: normal peripheral pulses; no carotid bruit Gastrointestinal (Abdomen): normal bowel sounds, soft, nontender, no hepatosplenomegaly Musculoskeletal: Extremities: + limited ROM of lower extremity Results & Data Vital Signs (Past 12 Hours) Vital Signs Temp Pulse Pulse Pulse Resp BP Pulse Ox 12/08/18 08:58 62 12/08/18 07:39 36.4 C L 66 20 169/62 H 100 12/08/18 03:44 36.5 C 61 20 147/76 H 99 12/08/18 00:09 36.7 C 64 18 128/71 99 12/08/18 00:00 62 Code Status & VTE Plan VTE Prophylaxis Plan VTE Prophylaxis will be ordered: Yes
[2018-12-08] MEDS ORDERED: SODIUM POLYSTYRENE SULFONATE 15G/60ML SUSP PO STA (10:15)
--- NOTE | 2018-12-08 10:37 | Medical Student Progress Note ---
Date of Service December 08, 2018 Assessment & Plan (1) Diabetic foot ulcer associated with type 2 diabetes mellitus: Assessment erythema has improved, minimal discharge present. daptomycin seems to be working well. Plan Ortho was consulted. Decided against inpatient debridement procedure due to patients age and recent stroke and adverse cardiac event history. Patient will be prescribed linezolid 600 mg BID for 14 days to treat infection. Patient will follow up with Ortho in one to two weeks for wound cleaning on outpatient basis. Follow up with primary care provider to ensure the patients diabetes is under control Diabetic foot ulcer location: heel Laterality: right Non- pressure ulcer stage: with fat layer exposed Qualified Code(s): E11.621 - Type 2 diabetes mellitus with foot ulcer; L97.412 - Non-pressure chronic ulcer of right heel and midfoot with fat layer exposed (2) Stress-induced cardiomyopathy: Assessment- Patient presented to ED with initial troponin of 14 which has been downtrending. Patients left ventricle ejection fraction was slightly reduced at 40-45%. Cardiac catheterization showed multivessel CAD but not acute blockages. [place] of left ventricle appeared akinetic on echo. Likely the sight of embolism that caused occipital lobe stroke. No thrombus currently seen on U/S. Cardiology felt that patient was more likely suffering from stress induced cardiomyopathy. Plan- Convert patient from heparin drip to renal dose of 2.5 mg BID of apixaban. Patient will remain on apixaban and clopidogrel 75mg daily along with 10 mg lisinopril daily metoprolol 100 mg BID for at least a month and will then f/u with cardiology. Discharge patient to [facility]. Physical therapy will help her regain strength and mobility. Exercise will help increase her cardiovascular reserve. (3) CVA (cerebral vascular accident): Assessment- Patient suffered a bilateral occipital lobe stroke. She has developed left homonymous hemianopsia as a result of this stroke. Her vision has improved since her stroke however she still has major vision deficits mainly in the lower left quadrant of each eye. Her history of CVA, hypertension, hyperlipidemia and diabetes also put her at high risk for developing another stroke Plan- Patient will continue to take atorvastatin 40mg daily and she will be anticoagulated with 2.5 apixaban and 75mg clopidogrel daily to help prevent a embolic CVA. Patient was restarted on lisinopril 10 mg daily and prescribed metoprolol 75 mg BID to control hypertension and decrease risk of stroke. Patient should follow up with primary care provider 1-2 weeks following rehab stay to ensure that her hypertension, diabetes is well managed. Discharge patient to [facility] facility. Physical therapy will help her regain strength and mobility. 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 She still has major visual field deficits predominantly in the lower left quadrants of each eye. Plan is for the patient to follow up with an ornamental metal erector for accurate measurement of visual field deficit and consult about vision therapy. (5) Folate deficiency anemia: Assessment- Patients had macrocytic anemia on admission with a Hbg was 9.7. Hbg is currently 10.5. Probably due to folate deficiency and CKD. Plan- Prescribe folate 1mg P.O once daily (6) Multi-vessel coronary artery stenosis: Cardiac catheterization showed multivessel CAD but not acute blockages. LAD 70% stenosis, RCA 95% stenosis, circumflex 60-70% stenosis. Plan- Convert patient from heparin drip to renal dose of 2.5 mg BID of apixaban. Patient will remain on apixaban and clopidogrel 75mg daily along with metoprolol 75 mg BID for at least a month and will then f/u with cardiology. Encourage patient to continue taking 40 mg of atorvastatin daily. (7) ERNST (obstructive sleep apnea): Assessment- Patient has history of ERNST Plan- Encourage patient to continue to use sleep apnea device when sleeping at home. (8) HTN (hypertension): Assessment- Patients systolic blood pressure has fluctuated from the 120's to the 170's over the course of her admission with her average being in the upper 150's. Plan- Restart 10 mg lisinopril daily and increase metoprolol to 100 mg BID for at least a month and will then f/u with cardiology. (9) Hyperlipidemia: Assessment- Patient has a history of hyperlipidemia Plan- Continuing treating with atorvastatin 40mg daily. (10) Hyperkalemia: Assessment- Patients potassium levels have slowly risen over the past two days to a current level of 5.6. Plan- Patient prescribed kayexalate to help decrease potassium levels. Patient also restarted on lasix due to recent weight gain which will also help decrease her potassium levels. Subjective 83 y/o female with a history of diabetes with polyneuropathy anemia and a CVA's presented to the E/D on November with chest pain, back pain that radiated down her left arm. Her troponin was elevated at 14 and her EKG showed st elevation and t wave inversions. She was then admitted. The plan was to mange her medically. She was treated with a 500 ml saline bolus and nitroprusside She continued to have chest pain and and a left heart catheterization was performed. This showed that the 70% stenosis of the LAD, 95% stenosis of the RAD and 60- 70% stenosis of the circumflex. Patient was diagnosed with stress induced cardiomyopathy by cardiology. On December 05 she developed another bout of chest pain and dense bilateral field deficits. She was found to have a dense left homonymous hemianopsia. MRI of the head showed evidence of occipital lobe infarcts. She was found to have two probable diabetic foot ulcers on the ventral aspect of her right foot. This ulcer began forming about 3 months ago. She said this was caused by the foot brace that she was wearing for her foot drop. She said that the brace did not fit her right and that it caused irritated her foot which led to her developing an ulcer. Patient was unsure of what her last Hba1c was and could not tell me what her average blood glucose levels are. Today the patient is feeling well. She participated in PT yesterday. She was able to get out of her bed with assistance and was able to walk about 20 steps using her walker. She feels that she is feeling better and getting stronger. She did not have any SOB or chest pain. She notes that her vision has not improved since yesterday. She is able to see the clock and her food and feed herself which is the same as yesterday. She does endorse intermittent difficulty swallowing her own saliva. She says this has happened a couple times a day for the last three days. She says that it causes her to cough. She does not have any dysphagia or difficulty when swallowing food or water. Review of Systems Constitutional: no fever, no chills and no anorexia Eyes: no diplopia and no worsening vision Ear, Nose, Mouth, Throat: no sore throat, no dysphagia and no pain with swallowing Respiratory: no cough, no dyspnea, no dyspnea on exertion and no wheezing Cardiovascular: no chest pain, no dyspnea, no dyspnea at rest, no orthopnea and no lightheadedness Gastrointestinal: no abdominal pain, no nausea, no vomiting, no diarrhea/loose stools, no blood in stools and no melena Genitourinary: no dysuria, no difficulty urinating, no urinary hesitancy and no urinary urgency Neurologic: no headache(s) and no confusion Physical Exam Constitutional: WD/WN, vitals as above no acute distress Eyes: PERRL, conjunctivae normal, anicteric sclerae normal accommodation; + abnormal visual field confrontation and sclerae not anicteric ENMT: Throat: uvula midline Neck: normal visual inspection Respiratory: normal respiratory effort, lungs clear to auscultation Auscultation: no rales, no rhonchi and no wheezes Cardiovascular: RRR, no murmur, no edema Heart Sounds: normal S1 and normal S2; no gallop, no murmur and no cardiac rub Vessels: normal peripheral pulses and posterior tibial pulses present Gastrointestinal (Abdomen): normal bowel sounds, soft, nontender, no hepatosplenomegaly Musculoskeletal: Extremities: + hand abnormality Bilateral and + limited ROM of lower extremity Motor strength for upper extremities 4/5. Motor strength lower extremities 4/5. Foot drop present dorsiflexion and plantar flexion motor strength 0/5. Neurologic: CN's II-XI intact bilaterally Coordination: + abnormal rapid alternating movements; normal [id number] test Results & Data Vital Signs (Past 12 Hours) Vital Signs Temp Pulse Pulse Pulse Resp BP Pulse Ox 12/08/18 08:58 62 12/08/18 07:39 36.4 C L 66 20 169/62 H 100 12/08/18 03:44 36.5 C 61 20 147/76 H 99 12/08/18 00:09 36.7 C 64 18 128/71 99 12/08/18 00:00 62
[2018-12-08] MEDS: FUROSEMIDE 20 MG TAB PO SCH (11:07)
--- NOTE | 2018-12-08 12:27 | Cardiology Progress Note ---
Date of Service December 08, 2018 Assessment & Plan (1) Multi-vessel coronary artery stenosis: 2. NSTEMI -- feel most likely secondary to takotsubo's rather than true ACS. 3. Apical akinesis/ischemic cardiomyopathy--EF40-45% 4. 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 Cerebrovascular disease with ? left distal vertebral occlusion 6. RT heel ulcer/abscess 7. LE PAD - RT RAJAT 0.47, LT 0.81 (moderate distal SFA/popliteal stenosis, likely RT GUSTABO occlusion with reconstitution). 8. Anemia post transfusion. 9. Rheumatoid arthritis 10. Insulin-dependent diabetes 11. CKD Patient remains chest pain free. Hemodynamically and electrically stable. Visual symptoms slightly improved. From a cardiac standpoint Ok for transfer to rehab when other medical issues stable. -- continue Eliquis and clopidogrel -- continue metoprolol and lisinopril -- continue imdur, statin -- agree with daily lasix 20mg daily -- no plan for endovascular intervention to LE PAD. Follow-up with me in 2 weeks. Subjective Feeling well today. No chest pain. Breathing comfortably. Vision improved but not back to baseline. Foot feels uncomfortable with boot in place but otherwise no new significant pain. Review of Systems Review of Systems: All systems reviewed & are unremarkable except as noted in HPI & below Physical Exam Physical Exam: General: Comfortable, no acute distress HEENT: Sclerae anicteric, mucous membranes moist Lungs: Clear to auscultation bilaterally Cardiac: Regular rate and rhythm, no murmurs. Abdomen: Soft, nontender, nondistended, positive bowel sounds. Extremities: Warm, well perfused, no edema. right radial pulse intact. right foot in boot. Psych: Alert orient x3, normal affect and mood Results & Data Vital Signs (Past 12 Hours) Vital Signs Temp Pulse Pulse Pulse Resp BP Pulse Ox 12/08/18 11:29 99.0 F 54 L 18 146/69 H 98 12/08/18 08:58 62 12/08/18 07:39 97.5 F L 66 20 169/62 H 100 12/08/18 03:44 97.7 F 61 20 147/76 H 99 PG Care Time/CCT Total # of Minutes Spent Total Time Spent with Patient: Total time spent is greater than 50% in coordination of care (as documented) at patient's floor/unit and/or counseling patient:
[2018-12-08 13:39] LABS: Calcium 8.9 mg/dl (8.5-10.1); Creatinine Clr Calc Pharmacy 28.5 ml/min; Est GFR (African American) 39.1; Est GFR (Non-African American) 33.7
[2018-12-08] MEDS: INSULIN GLARGINE SOLOSTAR 100 UNITS/ML 3 ML PEN SQ SCH (21:10)
--- NOTE | 2018-12-08 23:18 | Hospitalist Progress Note ---
Date of Service December 08, 2018 Assessment & Plan (1) Stress-induced cardiomyopathy: Presented with chest pain, elevated troponin to 14, with mildly reduced LVEF at 40-45% with akinetic LV apex Cardiac catheterization showed severe multivessel CAD with no acute blockages Cardiology feels that this is most likely consistent with stress-induced cardiomyopathy rather than a true acute coronary syndrome at this point -Due to akinetic LV apex and stroke, most likely had an LV thrombus that embolized Limited echo without evidence of LV thrombus but high risk for recurrence -was on heparin drip and then converted to Eliquis as there is no surgery planned in the near future--> needs Eliquis renally dosed at 2.5mg po bid x 1 month at least -Plan is for anticoagulation for at least 1 month with repeat echo at that time -plan to convert metoprolol to XL form tomorrow--> start Toprol 200 in AM -SHe will need close outpatient cardiology follow-up (2) Multi-vessel coronary artery stenosis: With severe multivessel disease, not amenable to stenting, with NSTEMI vs stress-induced CM as above, trop up to 14 on admission and trended downward -Appreciate cardiology consultation -Continue Plavix but not aspirin in order to avoid triple therapy (with Eliquis) -continue Eliquis -Continue metoprolol, lisinopril, atorvastatin, Imdur (3) Acute [place]: Presented with NSTEMI. Troponin peaked at 14 on admission, and then downtrending since. Now likely consistent with stress-induced cardiomyopathy as above With 2 episodes of left-sided chest pain with radiation on the left arm each on the mornings of 12/04 and 12/05, self resolving Troponin on 12/05 is 0.9 and 0.8, ECG remains with diffuse inferolateral T wave inversions similar to previous Echocardiogram 12/04 with LVEF 40-45%, apical and mid septal akinesis, hypokinetic mid anterior, mid anteroseptal kumar, no LV thrombus No further chest pain since receiving PRBCs Appreciate cardiology consultation - Cardiac cath on 12/02 showed diffuse disease -> Culprit for [place] thought to be a transient LAD lesion vs. stress-induced cardiomyopathy - Finished heparin gtt on 12/03, was then restarted for ongoing angina and possible embolic CVA on 12/04---> troponin continued to trend downward--> dcd heparin gtt to reduce risk of hemorrhagic conversion -However, after further discussion with cardiology and neurology, restarted heparin drip due to high risk for recurrence of LV thrombus due to akinetic LV apex--> converted to Eliquis now - Continue Plavix for medical management of severe CAD, but also for acute CVA and history of vertebral artery occlusion - Continue beta-eileen and increased dose to 100 mg p.o. twice daily for antianginal effect, continue statin - Started Imdur 30 mg daily on 12/04 -started lisinopril 10mg daily (from home, previously on hold) (4) CVA (cerebral vascular accident): Hx of CVA and previously on Plavix. She was at Coumadin at some point in the past for vertebral artery stenosis but was discontinued when she had a GI bleed. 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 The left distal vertebral is likely occluded. However with likely thrombus from the akinetic LV apex as above is most likely culprit as per cardiology-restarted heparin drip with transition to Eliquis as above She has no atrial fibrillation or flutter on telemetry. Clinically she has a dense left homonymous hemianopia as per neuro but is continuing to improve daily - Continue Plavix, statin, anticoagulation as above -Permissive hypertension at this point, but increased metoprolol as above for antianginal effect, added lisinopril back on--> will watch blood pressures and try to keep MAP around 90-95 -Appreciate neurology consultation -PT/OT/speech therapy all ordered--> plan for rehab placement -Monitor for hemorrhagic conversion and/or new strokes (5) Diabetic foot ulcer associated with type 2 diabetes mellitus: Likely osteitis R foot with possible developing abscess/phlegmon. MRI foot on 12/02 showed a partially loculated fluid collection which abuts the cortex of the calcaneus and measures approximately 1.3 cm. Cefepime was stopped on 12/03 because all culture are growing Gram(+) organisms Wound culture growing Enterococcus faecalis and coag negative staph Pain in the heel is significantly improved and she has no systemic symptoms at this point -Continue IV daptomycin until discharge, but as per discussion with ID and due to her penicillin allergy, will switch to oral linezolid upon discharge - Ortho - Appreciate assistance-orthopedics recommending surgical incision and drainage, however remains high risk at this time due to recent NSTEMI and acute CVA-orthopedics plans to defer surgery for at least 1 to 2 weeks with continued antibiotics after discharge -Will need close follow-up with orthopedics after discharge -monitor CK while on dapto and statin Anesthesia was consulted and they could perform her surgery with a popliteal nerve block and local sedation if needed, but will defer at this time as above (6) Anemia: Likely secondary to chronic disease and kidney disease. Hemoglobin was 9.7 on admission and then down to 7.9. Per outside lab was 9.3 in November 16, 2018. MCV is borderline macrocytic Now status post 2 units PRBCs on 12/05 and significant improved hemoglobin at 10.5 No further angina Folate also low at 5-replace B12 normal -Follow CBC periodically at this point - fecal occult blood pending -Transfuse to keep hemoglobin greater than 8-9 given recent [place] and CVA (7) Chronic kidney disease, stage 3: Acute kidney failure on CKD. Baseline Cr is unknown, though her Cr. has trended down from 2.4 on admission down to 1.53 and remains stable -continue lisinopril - Monitor BMP -restart furosemide 20mg daily for weight trending back upward, hyperkalemia (8) Peripheral arterial disease: Has some evidence of decreased ABIs on testing here, arterial Doppler of the right lower extremity with focal stenosis in the distal popliteal artery, however has good three-vessel runoff to the foot -Continue Plavix, statin -Appreciate cardiology input-no need for intervention at this point (9) Stage II pressure ulcer of buttock: Wound care following (10) HTN (hypertension): Allowing permissive hypertension with goal MAP 95 -continue lisinopril and restarted furosemide 20mg daily -Increased metoprolol as above -Follow blood pressures (11) Hyperlipidemia: - Continue statin (12) ERNST (obstructive sleep apnea): -Continue CPAP nightly (13) Folate deficiency anemia: Folate is deficient at 5 -Started folic acid 1 mg p.o. once daily (14) Diabetic polyneuropathy: Chronic for many years, with bilateral foot drop -Continue gabapentin, Topamax -wears orthotics and should follow up with orthotics after dc (15) Hemianopia, homonymous, left: Secondary to acute occipital lobe CVAs as above (16) Hyperkalemia: K+ mildly elevated today at 5.6 -gave 1 dose kayexolate 15gm and restarted lasix 20mg po daily -repeat K+ down to 5.0 Did just recently start back on lisinopril, will watch for worsening -follow BMP in AM (17) DVT prophylaxis: Eliquis Disposition-remain on PCU/telemetry, medically stable for discharge-awaiting atif nichole at [facility]-hopeful for tomorrow Subjective No complaints. DOing well, no chest pain. Wants to know if she is leaving today. BPs remain elevated Vision continues to be improved Tele with NSR and SB, rates 50-60s Review of Systems Review of Systems: All systems reviewed & are unremarkable except as noted in HPI & below Physical Exam Constitutional: well developed; no acute distress Eyes: + anicteric sclerae Neck: trachea midline, no thyromegaly Respiratory: normal respiratory effort, lungs clear to auscultation Cardiovascular: RRR, no murmur, no edema Gastrointestinal (Abdomen): normal bowel sounds, soft, nontender, no hepatosplenomegaly Musculoskeletal: Extremities: no cyanosis and no clubbing Skin: no rashes, warm and dry Neurologic: moves all extremities (except bilat foot drop) and awake Psychiatric: A+Ox3, euthymic affect Results & Data Vital Signs (Past 12 Hours) Vital Signs Temp Pulse Resp BP Pulse Ox 12/08/18 19:45 36.7 C 62 18 118/64 97 12/08/18 16:04 37.0 C 64 18 145/68 H 99 12/08/18 11:29 37.2 C 54 L 18 146/69 H 98 Laboratory Results 12/08/18 12/08/18 12/08/18 Range/Units 20:44 16:24 12:44 WBC (4.8-10.8) K/uL RBC (4.2-5.4) M/uL Hgb (12.0-16.0) g/dL Hct (37-47) % MCV (80-100) fL MCH (25-34) pg MCHC (32-36) g/dL RDW Std Deviation (36.4-46.3) fL RDW Coeff of Ciera (11.5-14.5) % Plt Count (130-400) K/uL MPV (7.4-10.4) fL Immature Gran % (Auto) % Neut % (Auto) % Lymph % (Auto) % [place] % (Auto) % Eos % (Auto) % Baso % (Auto) % Immature Gran # (Auto) (0.00-0.02) K/uL Neut # (Auto) (1.4-6.5) K/uL Lymph # (Auto) (1.2-3.4) K/uL [place] # (Auto) (0.11-0.59) K/uL Eos # (Auto) (0-0.5) K/uL Baso # (Auto) (0-0.2) K/uL Sodium 137 (136-145) mmol/L Potassium 5.0 (3.5-5.1) mmol/L Chloride 107 (98-107) mmol/L Carbon Dioxide 20 L (21-32) mmol/L Anion Gap 10.0 (3-11) BUN 30 H (7-18) mg/dl Creatinine 1.44 H (0.6-1.2) mg/dl Est Cr Clr Drug Dosing 28.5 ml/min Est GFR ( Amer) 39.1 Est GFR (Non-Af Amer) 33.7 BUN/Creatinine Ratio 21.0 H (10-20) Glucose 112 H (70-99) mg/dl POC Glucose 110 H 130 H (70-99) Calcium 8.9 (8.5-10.1) mg/dl 12/08/18 12/08/18 12/08/18 Range/Units 11:21 07:16 07:09 WBC (4.8-10.8) K/uL RBC (4.2-5.4) M/uL Hgb (12.0-16.0) g/dL Hct (37-47) % MCV (80-100) fL MCH (25-34) pg MCHC (32-36) g/dL RDW Std Deviation (36.4-46.3) fL RDW Coeff of Ciera (11.5-14.5) % Plt Count (130-400) K/uL MPV (7.4-10.4) fL Immature Gran % (Auto) % Neut % (Auto) % Lymph % (Auto) % [place] % (Auto) % Eos % (Auto) % Baso % (Auto) % Immature Gran # (Auto) (0.00-0.02) K/uL Neut # (Auto) (1.4-6.5) K/uL Lymph # (Auto) (1.2-3.4) K/uL [place] # (Auto) (0.11-0.59) K/uL Eos # (Auto) (0-0.5) K/uL Baso # (Auto) (0-0.2) K/uL Sodium 138 (136-145) mmol/L Potassium 5.6 H (3.5-5.1) mmol/L Chloride 108 H (98-107) mmol/L Carbon Dioxide 25 (21-32) mmol/L Anion Gap 5.0 (3-11) BUN 30 H (7-18) mg/dl Creatinine 1.53 H (0.6-1.2) mg/dl Est Cr Clr Drug Dosing 26.8 ml/min Est GFR ( Amer) 36.3 Est GFR (Non-Af Amer) 31.4 BUN/Creatinine Ratio 19.9 (10-20) Glucose 82 (70-99) mg/dl POC Glucose 74 96 (70-99) Calcium 8.7 (8.5-10.1) mg/dl 12/08/18 Range/Units 07:09 WBC 7.24 (4.8-10.8) K/uL RBC 3.49 L (4.2-5.4) M/uL Hgb 10.5 L (12.0-16.0) g/dL Hct 32.9 L (37-47) % MCV 94.3 (80-100) fL MCH 30.1 (25-34) pg MCHC 31.9 L (32-36) g/dL RDW Std Deviation 49.7 H (36.4-46.3) fL RDW Coeff of Ciera 14.6 H (11.5-14.5) % Plt Count 291 (130-400) K/uL MPV 9.9 (7.4-10.4) fL Immature Gran % (Auto) 0.4 % Neut % (Auto) 63.0 % Lymph % (Auto) 20.9 % [place] % (Auto) 11.0 % Eos % (Auto) 4.1 % Baso % (Auto) 0.6 % Immature Gran # (Auto) 0.03 H (0.00-0.02) K/uL Neut # (Auto) 4.56 (1.4-6.5) K/uL Lymph # (Auto) 1.51 (1.2-3.4) K/uL [place] # (Auto) 0.80 H (0.11-0.59) K/uL Eos # (Auto) 0.30 (0-0.5) K/uL Baso # (Auto) 0.04 (0-0.2) K/uL Sodium (136-145) mmol/L Potassium (3.5-5.1) mmol/L Chloride (98-107) mmol/L Carbon Dioxide (21-32) mmol/L Anion Gap (3-11) BUN (7-18) mg/dl Creatinine (0.6-1.2) mg/dl Est Cr Clr Drug Dosing ml/min Est GFR ( Amer) Est GFR (Non-Af Amer) BUN/Creatinine Ratio (10-20) Glucose (70-99) mg/dl POC Glucose (70-99) Calcium (8.5-10.1) mg/dl PG Care Time/CCT Total # of Minutes Spent Total Time Spent with Patient: Total time spent is greater than 50% in coordination of care (as documented) at patient's floor/unit and/or counseling patient: (1) Acute [place] Involved coronary artery: unspecified coronary artery Myocardial infarction type: unspecified Qualified Code(s): I21.9 - Acute myocardial infarction, unspecified (2) CVA (cerebral vascular accident) CVA mechanism: embolism Precerebral and cerebral artery: posterior cerebral artery Laterality of affected vessel: bilateral Qualified Code(s): I63.433 - Cerebral infarction due to embolism of bilateral posterior cerebral arteries (3) Diabetic foot ulcer associated with type 2 diabetes mellitus Diabetic foot ulcer location: heel Laterality: right Non-pressure ulcer stage: with fat layer exposed Qualified Code(s): E11.621 - Type 2 diabetes mellitus with foot ulcer; L97.412 - Non-pressure chronic ulcer of right heel and midfoot with fat layer exposed (4) Anemia Anemia type: unspecified type Qualified Code(s): D64.9 - Anemia, unspecified (5) Stage II pressure ulcer of buttock Laterality: left Qualified Code(s): L89.322 - Pressure ulcer of left buttock, stage 2
[2018-12-09 07:08] LABS: BUN Creatinine Ratio 19.5 (10-20); Calcium 8.5 mg/dl (8.5-10.1); Creatinine Clr Calc Pharmacy 26.9 ml/min; Est GFR (African American) 37.5; Est GFR (Non-African American) 32.4; Potassium 4.8 mmol/L (3.5-5.1)
[2018-12-09] MEDS: INSULIN ASPART 100 UNITS/ML 3 ML PEN SC SCH ×4 (08:10→20:35)
[2018-12-09] MEDS: FOLIC ACID 1 MG TAB PO SCH (08:11)
[2018-12-09] MEDS: PANTOprazole 40 MG TAB PO SCH (08:11)
[2018-12-09] MEDS: GABAPENTIN 100 MG CAP PO SCH (08:11)
[2018-12-09] MEDS: APIXABAN 2.5 MG TAB PO SCH ×2 (08:11→20:58)
[2018-12-09] MEDS: FUROSEMIDE 20 MG TAB PO SCH (08:11)
[2018-12-09] MEDS: CLOPIDOGREL BISULFATE 75 MG TAB PO SCH (08:12)
[2018-12-09] MEDS: TOPIRAMATE 25 MG TAB PO SCH (08:12)
[2018-12-09] MEDS: ATORVASTATIN 40 MG TAB PO SCH (08:12)
[2018-12-09] MEDS: LISINOPRIL 10 MG TAB PO SCH (08:12)
[2018-12-09] MEDS: METOPROLOL SUCC 50MG EXT REL TAB PO SCH (08:12)
[2018-12-09] MEDS: DOCUSATE SODIUM 100 MG CAP PO SCH ×2 (08:12→20:57)
[2018-12-09] MEDS: POLYETHYLENE (MIRALAX) 17 GM PACK PO SCH ×2 (08:12→21:03)
[2018-12-09] MEDS: ISOSORBIDE MONO EXTENDED REL 30 MG TABCR PO SCH (08:12)
[2018-12-09] MEDS: CHOLECALCIFEROL 1,000 UNITS TAB PO SCH (08:12)
[2018-12-09] MEDS: INSULIN GLARGINE SOLOSTAR 100 UNITS/ML 3 ML PEN SQ SCH (20:56)
--- NOTE | 2018-12-09 23:05 | Medical Student Progress Note ---
Date of Service December 09, 2018 Assessment & Plan (1) Diabetic foot ulcer associated with type 2 diabetes mellitus: Xavier is 83 year old female with a history of hypertension,CVA and diabetes with polyneuropathy who presented to ED with chest pain and an elevated troponin. Based on catheterization and echocardiogram findings patients acute coronary syndrome was believed to be caused by stress induced cardiomyopathy. Patient also developed occipital lobe stroke during admission which resulted in a left homonymous hemianopsia. -erythema has improved, minimal discharge present. daptomycin seems to be working well. -Ortho was consulted. Decided against inpatient debridement procedure due to patients age and recent stroke and adverse cardiac event history. Patient will be prescribed linezolid 600 mg BID for 14 days to treat infection. Patient will follow up with Ortho in one to two weeks for wound cleaning on outpatient basis. -Follow up with primary care provider to ensure the patients diabetes is under control Diabetic foot ulcer location: heel Laterality: right Non- pressure ulcer stage: with fat layer exposed Qualified Code(s): E11.621 - Type 2 diabetes mellitus with foot ulcer; L97.412 - Non-pressure chronic ulcer of right heel and midfoot with fat layer exposed (2) Stress-induced cardiomyopathy: - Patient presented to ED with initial troponin of 14 which has been downtrending. Patients left ventricle ejection fraction was slightly reduced at 40-45%. Cardiac catheterization showed multivessel CAD but not acute blockages. [place] of left ventricle appeared akinetic on echo. Likely the sight of embolism that caused occipital lobe stroke. No thrombus currently seen on U/S. Cardiology felt that patient was more likely suffering from stress induced cardiomyopathy. -Convert patient from heparin drip to renal dose of 2.5 mg BID of apixaban. Patient will remain on apixaban and clopidogrel 75mg daily along with 10 mg lisinopril daily metoprolol 100 mg BID for at least a month and will then f/u with cardiology. -Discharge patient to [facility]. Physical therapy will help her regain strength and mobility. Exercise will help increase her cardiovascular reserve. (3) CVA (cerebral vascular accident): -Patient suffered a bilateral occipital lobe stroke. She has developed left homonymous hemianopsia as a result of this stroke. Her vision has improved since her stroke however she still has major vision deficits mainly in the lower left quadrant of each eye. Her history of CVA, hypertension, hyperlipidemia and diabetes also put her at high risk for developing another stroke -Patient will continue to take atorvastatin 40mg daily and she will be anticoagulated with 2.5 apixaban and 75mg clopidogrel daily to help prevent a embolic CVA. -Patient was restarted on lisinopril 10 mg daily and prescribed metoprolol 75 mg BID to control hypertension and decrease risk of stroke. Patient should follow up with primary care provider 1-2 weeks following rehab stay to ensure that her hypertension, diabetes is well managed. -Discharge patient to skilled [facility] care facility. Physical therapy will help her regain strength and mobility. CVA mechanism: embolism Precerebral and cerebral artery: posterior cerebral artery Laterality of affected vessel: bilateral Qualified Code(s): I63.433 - Cerebral infarction due to embolism of bilateral posterior cerebral arteries (4) Hemianopia, homonymous, left: -Patients vision has improved in the lass 24 hours. She still has major visual field deficits predominantly in the lower left quadrants of each eye. -Plan is for the patient to follow up with an records supervisor for accurate measurement of visual field deficit and consult about vision therapy. (5) Folate deficiency anemia: -Patients had macrocytic anemia on admission with a Hbg was 9.7. Hbg is currently 10.5. Probably due to folate deficiency and CKD. - Prescribe folate 1mg P.O once daily (6) Multi-vessel coronary artery stenosis: -Cardiac catheterization showed multivessel CAD but not acute blockages. LAD 70% stenosis, RCA 95% stenosis, circumflex 60-70% stenosis. -Convert patient from heparin drip to renal dose of 2.5 mg BID of apixaban. Patient will remain on apixaban and clopidogrel 75mg daily along with metoprolol 75 mg BID for at least a month and will then f/u with cardiology. Encourage patient to continue taking 40 mg of atorvastatin daily. (7) ERNST (obstructive sleep apnea): - Patient has history of ERNST - Encourage patient to continue to use sleep apnea device when sleeping at home. (8) HTN (hypertension): - Patients systolic blood pressure has fluctuated from the 120's to the 170's over the course of her admission with her average being in the upper 150's. - Restart 10 mg lisinopril daily and increase metoprolol to 100 mg BID for at least a month and will then f/u with cardiology. (9) Hyperlipidemia: - Patient has a history of hyperlipidemia - Continuing treating with atorvastatin 40mg daily. Subjective 83 y/o female with a history of diabetes with polyneuropathy anemia and a CVA's presented to the E/D on November with chest pain, back pain that radiated down her left arm. Her troponin was elevated at 14 [address] her EKG showed st elevation and t wave inversions. She was then admitted. The plan was to mange her medically. She was treated with a 500 ml saline bolus and nitroprusside She continued to have chest pain and and a left heart catheterization was performed. This showed that the 70% stenosis of the LAD, 95% stenosis of the RAD and 60- 70% stenosis of the circumflex. Patient was diagnosed with stress induced cardiomyopathy by cardiology. On December 05 she developed another bout of chest pain and dense bilateral field deficits. She was found to have a dense left homonymous hemianopsia. MRI of the head showed evidence of occipital lobe infarcts. She was found to have two probable diabetic foot ulcers on the ventral aspect of her right foot. This ulcer began forming about 3 months ago. She said this was caused by the foot brace that she was wearing for her foot drop. She said that the brace did not fit her right and that it caused irritated her foot which led to her developing an ulcer. Today the patient is feeling well. She participated in PT yesterday. She was able to get out of her bed with assistance and was able to walk about 20 steps using her walker. She feels that she is feeling better and getting stronger. She did not have any SOB or chest pain. She notes that her vision has not improved since yesterday. She does endorse increase in bowel movements. This is likely due to the administration of kayexolate. She does not have any dysphagia or difficulty when swallowing food or water. Patient was not accepted to [facility]. custodial manager there did not explain exactly why they would not be accepting her. The patient was disappointed to here she will not be discharged to [facility]. Will try to discharge patient to [facility] tomorrow. Review of Systems Constitutional: no fever and no chills Eyes: no diplopia and no worsening vision Ear, Nose, Mouth, Throat: no sore throat and no dysphagia Respiratory: no cough and no dyspnea Cardiovascular: no chest pain, no dyspnea, no orthopnea and no lightheadedness Gastrointestinal: no nausea, no vomiting, no dysphagia, no blood in stools and no melena Genitourinary: + urinary urgency; no dysuria and no difficulty urinating Physical Exam Constitutional: WD/WN, vitals as above no acute distress Eyes: PERRL, conjunctivae normal, anicteric sclerae normal accommodation; + abnormal visual field confrontation and sclerae not anicteric ENMT: Throat: uvula midline Neck: normal visual inspection Respiratory: normal respiratory effort, lungs clear to auscultation Auscultation: no rales, no rhonchi and no wheezes Cardiovascular: RRR, no murmur, no edema Heart Sounds: normal S1 and normal S2; no gallop, no murmur and no cardiac rub Vessels: normal peripheral pulses and posterior tibial pulses present Gastrointestinal (Abdomen): normal bowel sounds, soft, nontender, no hepatosplenomegaly Musculoskeletal: Extremities: + hand abnormality and + limited ROM of lower extremity Neurologic: CN's II-XI intact bilaterally Results & Data Vital Signs (Past 12 Hours) Vital Signs Temp Pulse Pulse Resp BP Pulse Ox 12/09/18 19:52 36.8 C 65 19 146/69 H 97 12/09/18 15:49 36.6 C 60 18 158/73 H 99 12/09/18 11:30 37.0 C 63 16 147/68 H 98
--- NOTE | 2018-12-09 23:37 | Hospitalist Progress Note ---
Date of Service December 09, 2018 Assessment & Plan (1) Stress-induced cardiomyopathy: Presented with chest pain, elevated troponin to 14, with mildly reduced LVEF at 40-45% with akinetic LV apex Cardiac catheterization showed severe multivessel CAD with no acute blockages Cardiology feels that this is most likely consistent with stress-induced cardiomyopathy rather than a true acute coronary syndrome at this point -Due to akinetic LV apex and stroke, most likely had an LV thrombus that embolized Limited echo without evidence of LV thrombus but high risk for recurrence -was on heparin drip and then converted to Eliquis as there is no surgery planned in the near future--> needs Eliquis renally dosed at 2.5mg po bid x 1 month at least -Plan is for anticoagulation for at least 1 month with repeat echo at that time -continue metoprolol XL 200 mg po qAM -continue lisinopril -SHe will need close outpatient cardiology follow-up (2) Multi-vessel coronary artery stenosis: With severe multivessel disease, not amenable to stenting, with NSTEMI vs stress-induced CM as above, trop up to 14 on admission and trended downward -Appreciate cardiology consultation -Continue Plavix but not aspirin in order to avoid triple therapy (with Eliquis) -continue Eliquis -Continue metoprolol, lisinopril, atorvastatin, Imdur (3) Acute NC: Presented with NSTEMI. Troponin peaked at 14 on admission, and then downtrending since. Now likely consistent with stress-induced cardiomyopathy as above With 2 episodes of left-sided chest pain with radiation on the left arm each on the mornings of 12/04 and 12/05, self resolving Troponin on 12/05 is 0.9 and 0.8, ECG remains with diffuse inferolateral T wave inversions similar to previous Echocardiogram 12/04 with LVEF 40-45%, apical and mid septal akinesis, hypokinetic mid anterior, mid anteroseptal kumar, no LV thrombus No further chest pain since receiving PRBCs Appreciate cardiology consultation - Cardiac cath on 12/02 showed diffuse disease -> Culprit for NC thought to be a transient LAD lesion vs. stress-induced cardiomyopathy - Finished heparin gtt on 12/03, was then restarted for ongoing angina and possible embolic CVA on 12/04---> troponin continued to trend downward--> dcd heparin gtt to reduce risk of hemorrhagic conversion -However, after further discussion with cardiology and neurology, restarted heparin drip due to high risk for recurrence of LV thrombus due to akinetic LV apex--> converted to Eliquis at this time - Continue Plavix for medical management of severe CAD, but also for acute CVA and history of vertebral artery occlusion - Continue beta-eileen and continue statin - Started Imdur 30 mg daily on 12/04 -continue lisinopril 10mg daily (from home, previously on hold) (4) CVA (cerebral vascular accident): Hx of CVA and previously on Plavix. She was at Coumadin at some point in the past for vertebral artery stenosis but was discontinued when she had a GI bleed. 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 The left distal vertebral is likely occluded. However with likely thrombus from the akinetic LV apex as above is most likely culprit as per cardiology-restarted heparin drip with transition to Eliquis as above She has no atrial fibrillation or flutter on telemetry. Clinically she has a dense left homonymous hemianopia as per neuro but is somewhat improved - Continue Plavix, statin, anticoagulation as above -Permissive hypertension at this point, but increased metoprolol as above for antianginal effect, added lisinopril back on--> will watch blood pressures and try to keep MAP around 90-95 -Appreciate neurology consultation -PT/OT/speech therapy all ordered--> plan for rehab placement -Monitor for hemorrhagic conversion and/or new strokes-none so far -will need Ophthalmology eval after discharge for visual field testing (5) Diabetic foot ulcer associated with type 2 diabetes mellitus: Likely osteitis R foot with possible developing abscess/phlegmon. MRI foot on 12/02 showed a partially loculated fluid collection which abuts the cortex of the calcaneus and measures approximately 1.3 cm. Cefepime was stopped on 12/03 because all culture are growing Gram(+) organisms Wound culture growing Enterococcus faecalis and coag negative staph Pain in the heel is significantly improved and she has no systemic symptoms at this point -Continue IV daptomycin until discharge, but as per discussion with ID and due to her penicillin allergy, will switch to oral linezolid upon discharge - Ortho - Appreciate assistance-orthopedics recommending surgical incision and drainage, however remains high risk at this time due to recent NSTEMI and acute CVA-orthopedics plans to defer surgery for at least 1 to 2 weeks with continued antibiotics after discharge -Will need close follow-up with orthopedics after discharge -monitor CK while on dapto and statin Anesthesia was consulted and they could perform her surgery with a popliteal nerve block and local sedation if needed, but will defer at this time as above (6) Anemia: Likely secondary to chronic disease and kidney disease. Hemoglobin was 9.7 on admission and then down to 7.9. Per outside lab was 9.3 in November 16, 2018. MCV is borderline macrocytic Now status post 2 units PRBCs on 12/05 and significant improved hemoglobin at 10.5 No further angina Folate also low at 5-replace B12 normal -Follow CBC periodically at this point - fecal occult blood pending -Transfuse to keep hemoglobin greater than 8-9 given recent NC and CVA (7) Chronic kidney disease, stage 3: Acute kidney failure on CKD. Baseline Cr is unknown, though her Cr. has trended down from 2.4 on admission down to 1.4 and remains stable -continue lisinopril - Monitor BMP -restarted furosemide 20mg daily for weight trending back upward, hyperkalemia (8) Peripheral arterial disease: Has some evidence of decreased ABIs on testing here, arterial Doppler of the right lower extremity with focal stenosis in the distal popliteal artery, however has good three-vessel runoff to the foot -Continue Plavix, statin -Appreciate cardiology input-no need for intervention at this point (9) Stage II pressure ulcer of buttock: Wound care following (10) HTN (hypertension): Allowing permissive hypertension with goal MAP 95 -continue lisinopril and restarted furosemide 20mg daily -Increased metoprolol as above -Follow blood pressures (11) Hyperlipidemia: - Continue statin (12) ERNST (obstructive sleep apnea): -Continue CPAP nightly (13) Folate deficiency anemia: Folate is deficient at 5 -Started folic acid 1 mg p.o. once daily (14) Diabetic polyneuropathy: Chronic for many years, with bilateral foot drop -Continue gabapentin, Topamax -wears orthotics and should follow up with orthotics after dc (15) Hemianopia, homonymous, left: Secondary to acute occipital lobe CVAs as above (16) Hyperkalemia: K+ mildly elevated at 5.6 and is now resolved after 1 dose kayexolate and restarting po lasix -follow BMP in AM (17) DVT prophylaxis: Eliquis Disposition-remain on PCU/telemetry, medically stable for discharge-awaiting placement -now denied at [facility] today and have placed other referrals Subjective Pt feeling well, no chest pain or OSB. Vision today is about the same, not improved. Still having trouble reading the paper. Tele with NSR rates inthe 60s Review of Systems Review of Systems: All systems reviewed & are unremarkable except as noted in HPI & below Physical Exam Constitutional: well developed; no acute distress Eyes: + anicteric sclerae Neck: trachea midline, no thyromegaly Respiratory: normal respiratory effort, lungs clear to auscultation Cardiovascular: RRR, no murmur, no edema Gastrointestinal (Abdomen): normal bowel sounds, soft, nontender, no hepatosplenomegaly Musculoskeletal: Extremities: no cyanosis and no clubbing Skin: no rashes, warm and dry + wound (Right medial heel with open ulcer approximately 2 x 2 cm, no TTP, no erythema or drainage) Neurologic: moves all extremities (except bilat foot drop) and awake Psychiatric: A+Ox3, euthymic affect Results & Data Vital Signs (Past 12 Hours) Vital Signs Temp Pulse Resp BP Pulse Ox 12/09/18 19:52 36.8 C 65 19 146/69 H 97 12/09/18 15:49 36.6 C 60 18 158/73 H 99 Laboratory Results 12/09/18 12/09/18 12/09/18 Range/Units 20:28 16:17 11:58 Sodium (136-145) mmol/L Potassium (3.5-5.1) mmol/L Chloride (98-107) mmol/L Carbon Dioxide (21-32) mmol/L Anion Gap (3-11) BUN (7-18) mg/dl Creatinine (0.6-1.2) mg/dl Est Cr Clr Drug Dosing ml/min Est GFR ( Amer) Est GFR (Non-Af Amer) BUN/Creatinine Ratio (10-20) Glucose (70-99) mg/dl POC Glucose 113 H 176 H 92 (70-99) Calcium (8.5-10.1) mg/dl 12/09/18 12/09/18 Range/Units 07:13 06:06 Sodium 137 (136-145) mmol/L Potassium 4.8 (3.5-5.1) mmol/L Chloride 108 H (98-107) mmol/L Carbon Dioxide 23 (21-32) mmol/L Anion Gap 6.0 (3-11) BUN 29 H (7-18) mg/dl Creatinine 1.49 H (0.6-1.2) mg/dl Est Cr Clr Drug Dosing 26.9 ml/min Est GFR ( Amer) 37.5 Est GFR (Non-Af Amer) 32.4 BUN/Creatinine Ratio 19.5 (10-20) Glucose 106 H (70-99) mg/dl POC Glucose 110 H (70-99) Calcium 8.5 (8.5-10.1) mg/dl PG Care Time/CCT Total # of Minutes Spent Total Time Spent with Patient: Total time spent is greater than 50% in coordination of care (as documented) at patient's floor/unit and/or counseling patient: (1) Acute NC Involved coronary artery: unspecified coronary artery Myocardial infarction type: unspecified Qualified Code(s): I21.9 - Acute myocardial infarction, unspecified (2) CVA (cerebral vascular accident) CVA mechanism: embolism Precerebral and cerebral artery: posterior cerebral artery Laterality of affected vessel: bilateral Qualified Code(s): I63.433 - Cerebral infarction due to embolism of bilateral posterior cerebral arteries (3) Diabetic foot ulcer associated with type 2 diabetes mellitus Diabetic foot ulcer location: heel Laterality: right Non-pressure ulcer stage: with fat layer exposed Qualified Code(s): E11.621 - Type 2 diabetes mellitus with foot ulcer; L97.412 - Non-pressure chronic ulcer of right heel and midfoot with fat layer exposed (4) Anemia Anemia type: unspecified type Qualified Code(s): D64.9 - Anemia, unspecified (5) Stage II pressure ulcer of buttock Laterality: left Qualified Code(s): L89.322 - Pressure ulcer of left buttock, stage 2
[2018-12-10] MEDS: DAPTOmycin 300 MG in SYRINGE 0 ML IV SCH (04:48)
[2018-12-10 06:56] LABS: BUN Creatinine Ratio 21.7 (10-20); Calcium 8.9 mg/dl (8.5-10.1); Creatinine Clr Calc Pharmacy 27.8 ml/min; Est GFR (African American) 40.1; Est GFR (Non-African American) 34.6; Potassium 4.8 mmol/L (3.5-5.1)
[2018-12-10] MEDS: INSULIN ASPART 100 UNITS/ML 3 ML PEN SC SCH ×2 (07:56→12:25)
[2018-12-10] MEDS: TOPIRAMATE 25 MG TAB PO SCH (07:57)
[2018-12-10] MEDS: METOPROLOL SUCC 50MG EXT REL TAB PO SCH (07:57)
[2018-12-10] MEDS: PANTOprazole 40 MG TAB PO SCH (07:57)
[2018-12-10] MEDS: ISOSORBIDE MONO EXTENDED REL 30 MG TABCR PO SCH (07:57)
[2018-12-10] MEDS: DOCUSATE SODIUM 100 MG CAP PO SCH (07:58)
[2018-12-10] MEDS: ATORVASTATIN 40 MG TAB PO SCH (07:58)
[2018-12-10] MEDS: CLOPIDOGREL BISULFATE 75 MG TAB PO SCH (07:58)
[2018-12-10] MEDS: POLYETHYLENE (MIRALAX) 17 GM PACK PO SCH (07:58)
[2018-12-10] MEDS: GABAPENTIN 100 MG CAP PO SCH (07:58)
[2018-12-10] MEDS: LISINOPRIL 10 MG TAB PO SCH (07:58)
[2018-12-10] MEDS: CHOLECALCIFEROL 1,000 UNITS TAB PO SCH (07:58)
[2018-12-10] MEDS: APIXABAN 2.5 MG TAB PO SCH (07:58)
[2018-12-10] MEDS: FOLIC ACID 1 MG TAB PO SCH (07:58)
[2018-12-10] MEDS: FUROSEMIDE 20 MG TAB PO SCH (07:59)
--- NOTE | 2018-12-10 09:07 | Medical Student Progress Note ---
Date of Service December 10, 2018 Assessment & Plan (1) Diabetic foot ulcer associated with type 2 diabetes mellitus: Xavier is 83 year old female with a history of hypertension,CVA and diabetes with polyneuropathy who presented to ED with chest pain and an elevated troponin. Based on catheterization and echocardiogram findings patients acute coronary syndrome was believed to be caused by stress induced cardiomyopathy. Patient also developed occipital lobe stroke during admission which resulted in a left homonymous hemianopsia. -erythema has improved, minimal discharge present. daptomycin seems to be working well. -Ortho was consulted. Decided against inpatient debridement procedure due to patients age and recent stroke and adverse cardiac event history. Patient will be prescribed linezolid 600 mg BID for 14 days to treat infection. Patient will follow up with Ortho in one to two weeks for wound cleaning on outpatient basis. -Follow up with primary care provider to ensure the patients diabetes is under control Diabetic foot ulcer location: heel Laterality: right Non- pressure ulcer stage: with fat layer exposed Qualified Code(s): E11.621 - Type 2 diabetes mellitus with foot ulcer; L97.412 - Non-pressure chronic ulcer of right heel and midfoot with fat layer exposed (2) Stress-induced cardiomyopathy: - Patient presented to ED with initial troponin of 14 which has been downtrending. Patients left ventricle ejection fraction was slightly reduced at 40-45%. Cardiac catheterization showed multivessel CAD but not acute blockages. [place] of left ventricle appeared akinetic on echo. Likely the sight of embolism that caused occipital lobe stroke. No thrombus currently seen on U/S. Cardiology felt that patient was more likely suffering from stress induced cardiomyopathy. -Convert patient from heparin drip to renal dose of 2.5 mg BID of apixaban. Patient will remain on apixaban and clopidogrel 75mg daily along with 10 mg lisinopril daily metoprolol 100 mg BID for at least a month and will then f/u with cardiology. -Discharge patient to [facility]. Physical therapy will help her regain strength and mobility. Exercise will help increase her cardiovascular reserve. (3) CVA (cerebral vascular accident): -Patient suffered a bilateral occipital lobe stroke. She has developed left homonymous hemianopsia as a result of this stroke. Her vision has improved since her stroke however she still has major vision deficits mainly in the lower left quadrant of each eye. Her history of CVA, hypertension, hyperlipidemia and diabetes also put her at high risk for developing another stroke -Patient will continue to take atorvastatin 40mg daily and she will be anticoagulated with 2.5 apixaban and 75mg clopidogrel daily to help prevent a embolic CVA. -Patient was restarted on lisinopril 10 mg daily and prescribed metoprolol 75 mg BID to control hypertension and decrease risk of stroke. Patient should follow up with primary care provider 1-2 weeks following rehab stay to ensure that her hypertension, diabetes is well managed. -Discharge patient to [facility] facility. Physical therapy will help her regain strength and mobility. CVA mechanism: embolism Laterality of affected vessel: bilateral Precerebral and cerebral artery: posterior cerebral artery Qualified Code(s): I63.433 - Cerebral infarction due to embolism of bilateral posterior cerebral arteries (4) Hemianopia, homonymous, left: -Patients vision has improved in the lass 24 hours. She still has major visual field deficits predominantly in the lower left quadrants of each eye. -Plan is for the patient to follow up with an sugar drier for accurate measurement of visual field deficit and consult about vision therapy. (5) Folate deficiency anemia: -Patients had macrocytic anemia on admission with a Hbg was 9.7. Hbg is currently 10.5. Probably due to folate deficiency and CKD. - Prescribe folate 1mg P.O once daily (6) Multi-vessel coronary artery stenosis: -Cardiac catheterization showed multivessel CAD but not acute blockages. LAD 70% stenosis, RCA 95% stenosis, circumflex 60-70% stenosis. -Convert patient from heparin drip to renal dose of 2.5 mg BID of apixaban. Patient will remain on apixaban and clopidogrel 75mg daily along with metoprolol 75 mg BID for at least a month and will then f/u with cardiology. Encourage patient to continue taking 40 mg of atorvastatin daily. (7) ERNST (obstructive sleep apnea): - Patient has history of ERNST - Encourage patient to continue to use sleep apnea device when sleeping at home. (8) HTN (hypertension): - Patients systolic blood pressure has fluctuated from the 120's to the 170's over the course of her admission with her average being in the upper 150's. - Restart 10 mg lisinopril daily and increase metoprolol to 100 mg BID for at least a month and will then f/u with cardiology. (9) Hyperlipidemia: - Patient has a history of hyperlipidemia - Continuing treating with atorvastatin 40mg daily. Subjective Subjective 83 y/o female with a history of diabetes with polyneuropathy anemia and a CVA's presented to the E/D on November with chest pain, back pain that radiated down her left arm. Patient was admitted for acute coronary event. Patient was diagnosed with stress induced cardiomyopathy by cardiology. On December 05 she developed another bout of chest pain and dense bilateral field deficits. She was found to have a dense left homonymous hemianopsia. MRI of the head showed evidence of occipital lobe infarcts. She also has two diabetic foot ulcers on the ventral aspect of her right foot. This ulcer began forming about 3 months ago. She said this was caused by the foot brace that she was wearing for her foot drop. She said that the brace did not fit her right and that it caused irritated her foot which led to her developing an ulcer. Today the patient is feeling well. She has no complaints. She participated in PT yesterday. She was able to get out of her bed with assistance and was able to walk about 15 steps using her walker. She notes that her vision has not improved or worsened since yesterday. She does not have any chest pain, SOB, orthopnea, PND, dysphagia or difficulty when swallowing food or water. Review of Systems Constitutional: no chills, no body aches and no fatigue Eyes: no worsening vision Respiratory: no cough and no dyspnea Cardiovascular: no chest pain, no dyspnea, no orthopnea and no lightheadedness Gastrointestinal: no nausea, no vomiting, no dysphagia, no diarrhea/loose stools and no melena Genitourinary: + urinary urgency; no dysuria and no difficulty urinating Physical Exam Constitutional: WD/WN, vitals as above no acute distress Eyes: PERRL, conjunctivae normal, anicteric sclerae normal accommodation; + abnormal visual field confrontation and sclerae not anicteric ENMT: Throat: uvula midline Neck: normal visual inspection Respiratory: normal respiratory effort, lungs clear to auscultation Auscultation: no rales, no rhonchi and no wheezes Cardiovascular: RRR, no murmur, no edema Heart Sounds: normal S1 and normal S2; no gallop, no murmur and no cardiac rub Vessels: normal peripheral pulses and posterior tibial pulses present Gastrointestinal (Abdomen): normal bowel sounds, soft, nontender, no hepatosplenomegaly Musculoskeletal: Extremities: + hand abnormality and + limited ROM of lower extremity Neurologic: CN's II-XI intact bilaterally Results & Data Vital Signs (Past 12 Hours) Vital Signs Temp Pulse Pulse Resp BP Pulse Ox 12/10/18 08:16 35.8 C L 69 20 172/78 H 94 12/10/18 08:00 68 12/10/18 03:38 36.7 C 67 20 162/76 H 92 12/10/18 00:00 68 12/09/18 23:08 36.9 C 67 20 142/65 H 96
[2018-12-10 10:54] VITALS: BP 137/66; TEMP 98.8; O2SAT 97
[2018-12-10 16:38] VITALS: PULSE 69
--- NOTE | 2018-12-10 16:48 | Discharge Summary ---
Date of Service December 10, 2018 Admission HPI Per Admitting Provider Chief Complaint: Left arm and back pain Primary Care Provider: SEMYOUR Hoffman 83-year-old female with history of hypertension, hyperlipidemia, peripheral vascular disease, CKD 3, diabetes, CVA x2 with bilateral foot drop, ERNST on CPAP, spinal stenosis, right ICA stenosis presents with left arm and back pain x2 days. Reports left arm and back pain which started the night before. She had similar pain again tonight after dinner. She took some coke thinking it might be acid reflux but it did not help her burp. Pain is severe and left arm into hand and also involves her back between her shoulder blades. Pain resolved after receiving nitro in the ED. Associated with vomiting yesterday; diarrhea yesterday and today, loose brown and nonbloody; chills; lightheadedness. Denies any fever, chest pain, shortness of breath, headache, abdominal pain, dysuria, hematuria. No recent falls. Per wound care notes patient has stage II ulcer on right plantar foot and stage II decubitus pressure ulcer. Per wound care 11/30/2018 note wound culture was collected which is growing staph species sensitivities pending, and patient was supposed to get MRI of right foot given worsening ulcer. Patient reports using boot and walker due to her foot drop as a result of her strokes. Principal Diagnosis NSTEMI, Severe CAD, Acute CVA, Diabetic foot ulcer and abscess Discharge Exam Constitutional well developed; no acute distress Eyes + anicteric sclerae ENMT external ear and nose normal, oropharynx normal Neck trachea midline, no thyromegaly Respiratory normal respiratory effort, lungs clear to auscultation Cardiovascular RRR, no murmur, no edema Gastrointestinal (Abdomen) normal bowel sounds, soft, nontender, no hepatosplenomegaly Musculoskeletal Extremities: no cyanosis and no clubbing Skin no rashes, warm and dry + wound (Right medial heel with open ulcer approximately 2 x 2 cm, no TTP, no erythema or drainage) Neurologic moves all extremities (except bilat foot drop) and awake Psychiatric A+Ox3, euthymic affect Discharge Data Allergies Allergy/AdvReac Type Severity Reaction Status Date / Time amitriptyline Allergy Intermediate BLURRED Verified 12/14/18 00:19 DOUBLE VISION gabapentin Allergy Intermediate SHAKES,VISION Verified 12/14/18 00:19 CHANGES latex Allergy Intermediate SKIN GETS Verified 12/14/18 00:19 RAW-PT HAS NO RECOLLECTION meloxicam Allergy Intermediate DIARRHEA Verified 12/14/18 00:19 metformin Allergy Intermediate HOT FLASHES Verified 12/14/18 00:19 pregabalin Allergy Intermediate DIZZINESS, Verified 12/14/18 00:19 SLEEPY acetaminophen Allergy Mild SWEATING Verified 12/14/18 00:19 pioglitazone Allergy Mild SORE Verified 12/14/18 00:19 THROAT,EAts excessively Cipro Allergy Unknown itshiness,red Verified 06/25/16 17:42 streak ciprofloxacin Allergy Unknown itchiness,red Verified 12/14/18 00:19 streak guaifenesin Allergy Unknown UNKNOWN Verified 12/14/18 00:19 metronidazole Allergy Unknown UNKNOWN Verified 12/14/18 00:19 Penicillins Allergy Unknown INJECTION Verified 12/14/18 00:19 UNKNOWN rofecoxib Allergy Unknown UNKNOWN Verified 12/14/18 00:19 rosuvastatin Allergy Unknown UNKNOWN Verified 12/14/18 00:19 simvastatin Allergy Unknown UNKNOWN Verified 12/14/18 00:19 Sulfa (Sulfonamide Allergy Unknown HIVES Verified 12/14/18 00:19 Antibiotics) tramadol Allergy Unknown SWEATING Verified 12/14/18 00:19 Tricyclic Compounds Allergy Unknown ON WINDY Verified 12/14/18 00:19 HILL LIST Consultations 12/01/18 23:58 ED Decision to Admit Stat 12/02/18 02:35 Consult Cardiology Routine 12/03/18 07:22 Consult Orthopedic Surgery Routine 12/03/18 17:14 Consult Infectious Diseases Routine 12/04/18 17:17 Consult Neurology Routine 12/06/18 14:03 Consult Anesthesiology Routine Procedures Performed Operation Date: 12/02/18 09:30 Actual Procedures p Cath, Left with Cors and Vent - Scotty Miranda MD s Cineradiography w/Routine Exam - Scotty Miranda MD Echocardiogram Ordered Studies 12/02/18 02:35 MR foot RT w/o con Routine 12/02/18 10:14 CL Cath Imgs for PACS use only Routine 12/04/18 11:00 MR brain wo con Stat 12/04/18 14:25 CT angio head w con Stat CT angio neck with con Stat 12/05/18 09:30 US arterial duplex LE RT Routine CXR Hospital Course (1) Stress-induced cardiomyopathy: Presented with chest pain, elevated troponin to 14, with mildly reduced LVEF at 40-45% with akinetic LV apex Cardiac catheterization showed severe multivessel CAD with no acute blockages Cardiology feels that this is most likely consistent with stress-induced cardiomyopathy rather than a true acute coronary syndrome at this point -Due to akinetic LV apex and stroke, most likely had an LV thrombus that embolized Limited echo without evidence of LV thrombus but high risk for recurrence -was on heparin drip and then converted to Eliquis as there is no surgery planned in the near future--> needs Eliquis renally dosed at 2.5mg po bid x 1 month at least -Plan is for anticoagulation for at least 1 month with repeat echo at that time -continue metoprolol XL 200 mg po qAM -continue lisinopril -SHe will need close outpatient cardiology follow-up (2) Multi-vessel coronary artery stenosis: With severe multivessel disease, not amenable to stenting, with NSTEMI vs stress-induced CM as above, trop up to 14 on admission and trended downward -Appreciate cardiology consultation -Continue Plavix but not aspirin in order to avoid triple therapy (with Eliquis) -continue Eliquis -Continue metoprolol, lisinopril, atorvastatin, Imdur (3) Acute NE: Presented with NSTEMI. Troponin peaked at 14 on admission, and then downtrending since. Now likely consistent with stress-induced cardiomyopathy as above With 2 episodes of left-sided chest pain with radiation on the left arm each on the mornings of 12/04 and 12/05, self resolving Troponin on 12/05 is 0.9 and 0.8, ECG remains with diffuse inferolateral T wave inversions similar to previous Echocardiogram 12/04 with LVEF 40-45%, apical and mid septal akinesis, hypokinetic mid anterior, mid anteroseptal kumar, no LV thrombus No further chest pain since receiving PRBCs Appreciate cardiology consultation - Cardiac cath on 12/02 showed diffuse disease -> Culprit for NE thought to be a transient LAD lesion vs. stress-induced cardiomyopathy - Finished heparin gtt on 12/03, was then restarted for ongoing angina and possible embolic CVA on 12/04---> troponin continued to trend downward--> dcd heparin gtt to reduce risk of hemorrhagic conversion -However, after further discussion with cardiology and neurology, restarted heparin drip due to high risk for recurrence of LV thrombus due to akinetic LV apex--> converted to Eliquis at this time - Continue Plavix for medical management of severe CAD, but also for acute CVA and history of vertebral artery occlusion - Continue beta-eileen and continue statin - Started Imdur 30 mg daily on 12/04 -continue lisinopril 10mg daily (from home, previously on hold) (4) CVA (cerebral vascular accident): Hx of CVA and previously on Plavix. She was at Coumadin at some point in the past for vertebral artery stenosis but was discontinued when she had a GI bleed. 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 The left distal vertebral is likely occluded. However with likely thrombus from the akinetic LV apex as above is most likely culprit as per cardiology-restarted heparin drip with transition to Eliquis as above She has no atrial fibrillation or flutter on telemetry. Clinically she has a dense left homonymous hemianopia as per neuro but is somewhat improved - Continue Plavix, statin, anticoagulation as above -Permissive hypertension at this point, but increased metoprolol as above for antianginal effect, added lisinopril back on--> will watch blood pressures and try to keep MAP around 90-95 -Appreciate neurology consultation -PT/OT/speech therapy all ordered--> plan for rehab placement -Monitor for hemorrhagic conversion and/or new strokes-none so far -will need Ophthalmology eval after discharge for visual field testing (5) Diabetic foot ulcer associated with type 2 diabetes mellitus: Likely osteitis R foot with possible developing abscess/phlegmon. MRI foot on 12/02 showed a partially loculated fluid collection which abuts the cortex of the calcaneus and measures approximately 1.3 cm. Cefepime was stopped on 12/03 because all culture are growing Gram(+) organisms Wound culture growing Enterococcus faecalis and coag negative staph Pain in the heel is significantly improved and she has no systemic symptoms at this point -Continue IV daptomycin until discharge, but as per discussion with ID and due to her penicillin allergy, will switch to oral linezolid upon discharge - Ortho - Appreciate assistance-orthopedics recommending surgical incision and drainage, however remains high risk at this time due to recent NSTEMI and acute CVA-orthopedics plans to defer surgery for at least 1 to 2 weeks with continued antibiotics after discharge -Will need close follow-up with orthopedics after discharge -monitor CK while on dapto and statin Anesthesia was consulted and they could perform her surgery with a popliteal nerve block and local sedation if needed, but will defer at this time as above (6) Anemia: Likely secondary to chronic disease and kidney disease. Hemoglobin was 9.7 on admission and then down to 7.9. Per outside lab was 9.3 in November 16, 2018. MCV is borderline macrocytic Now status post 2 units PRBCs on 12/05 and significant improved hemoglobin at 10.5 No further angina Folate also low at 5-replace B12 normal -Follow CBC periodically at this point - fecal occult blood pending -Transfuse to keep hemoglobin greater than 8-9 given recent NE and CVA (7) Chronic kidney disease, stage 3: Acute kidney failure on CKD. Baseline Cr is unknown, though her Cr. has trended down from 2.4 on admission down to 1.4 and remains stable -continue lisinopril - Monitor BMP -restarted furosemide 20mg daily for weight trending back upward, hyperkalemia (8) Peripheral arterial disease: Has some evidence of decreased ABIs on testing here, arterial Doppler of the right lower extremity with focal stenosis in the distal popliteal artery, however has good three-vessel runoff to the foot -Continue Plavix, statin -Appreciate cardiology input-no need for intervention at this point (9) Stage II pressure ulcer of buttock: Wound care following (10) HTN (hypertension): Allowing permissive hypertension with goal MAP 95 -continue lisinopril and restarted furosemide 20mg daily -Increased metoprolol as above -Follow blood pressures (11) Hyperlipidemia: - Continue statin (12) ERNST (obstructive sleep apnea): -Continue CPAP nightly (13) Folate deficiency anemia: Folate is deficient at 5 -Started folic acid 1 mg p.o. once daily (14) Diabetic polyneuropathy: Chronic for many years, with bilateral foot drop -Continue gabapentin, Topamax -wears orthotics and should follow up with orthotics after dc (15) Hemianopia, homonymous, left: Secondary to acute occipital lobe CVAs as above (16) Hyperkalemia: K+ mildly elevated at 5.6 and is now resolved after 1 dose kayexolate and restarting po lasix -follow BMP as outpt (17) DVT prophylaxis: Eliquis Disposition-medically stable for discharge to SNF Total Time Total Time Spent Total Time Spent (In Minutes): >30 min Total Time Includes: Examination of the Patient, Discharge Planning and Medication Reconciliation Discharge Plan Discharge Items Patient Disposition: Transfer Care Home Fac Reason For Visit: NSTEMI Discharge Diagnosis: NSTEMI, Acute CVA, Heel abscess Condition on Discharge: Fair Activity: As commented below Bathing: No limitations Exercise/Sports: Gradually increase as tolerated Driving/Machine Use: No driving Weightbearing: Full weightbearing Weightbearing Comment: MUST WEAR CAM WALKING BOOT AND ORTHOTIC AT ALL TIMES UNLESS IN BED Non-emergency contact: Primary Care Provider, Surgeon, Residential Plumber and Neurologist Call non-emergency contact if: you have any medication questions, your symptoms worsen, your pain is not controlled, your pain is worsening, your pain is unusual for you, your pain is concerning for you, you have a fever, your temperature is above 101, your wound has increased redness, your wound has increased drainage and your wound pain has increased Follow-up/Referrals: Scotty Miranda MD [Physician] - 12/21/18 2:30 pm (A follow up appt. has been made for you with Dr. Miranda on Thursday, at 2:30pm.) Yandel Heck DO [Surgeon] - 12/16/18 10:30 am (A follw up appt. with Dr. Heck has been scheduled for at 10:30am) Afia Villa CRNP [Primary Care Provider] - 12/13/18 4:10 pm (A follow up appt. has been made for you with Afia Villa on Wednesday 12/13 at 4:10pm.) Daniella Weston [Family Provider] - Diet: Carb Consistent or DM2 and Heart Healthy Addtl Attending Provider Instructions: Needs to stay on Eliquis for one month and then have reassessment of cardiac function with Cardiology. She should remain on oral antibiotics until seen by Orthopedics and a plan for surgery is made. She can be bridged with Lovenox for her foot surgery if needed. She will need to see an Tool Filer for visual field testing within the month. Please check CBC, BMP in 3-5 days. Risk Factors for Stroke: You can reduce your chances of stroke by working with your medical provider to adopt a healthy lifestyle. Some specific ways to lower your chance of stroke are: * If you are a smoker, now is the time to stop smoking cigarettes * If you are diabetic, improve the control of your blood sugars * Avoid excessive amounts of alcohol * Control high blood pressure * Lose weight if you are overweight * Be sure to lead an active lifestyle * Eat a healthy diet low in salt, cholesterol and fat You should know about other risk factors for stroke that you are unable to control. These include: * Age 55 years or older * Male gender * Certain racial groups: , or / * Family History of Stroke, Mini stroke or Heart Attack * Sickle Cell Disease Follow Up: It is important for you to keep your follow up appointments with your medical provider. Who to Call and When: Medical Emergencies: Call 911 immediately if you experience any of the following warning signs and symptoms of Stroke: * Sudden numbness or weakness of the face, arm or leg, especially on one side of the body * Sudden confusion, trouble speaking or understanding * Sudden trouble seeing in one or both eyes * Sudden trouble walking, dizziness, loss of balance or coordination * Sudden severe headache with no cause Do not delay calling 911 if you experience any warning signs or symptoms of a stroke. Delay in seeking medical attention may affect what treatments can be given to you. . Pending Studies at Discharge: No Stand-Alone Forms: My [facility] Skilled Items Patient informed of condition?: Yes DNR: No Discharge Level of Care: Skilled Communicable Disease: No Discharge Prognosis: Improving Lines: None Urinary Catheter: No Medications and DC Order Prescriptions: New polyethylene glycol 3350 [Miralax] 17 gram Powder In Packet 17 g PO BID Qty: 60 RF: 0 Continued clopidogrel 75 mg tablet 75 mg PO QPM RF: 0 topiramate 25 mg tablet 25 mg PO QAM Qty: 30 RF: 0 pantoprazole [Protonix] 40 mg tablet,delayed release (DR/EC) 40 mg PO DAILYBB RF: 0 lisinopril 10 mg tablet 10 mg PO QAM RF: 0 Changed furosemide 20 mg tablet 20 mg PO QAM Qty: 0 RF: 0 Discontinued metoprolol tartrate 75 mg tablet 75 mg PO BID RF: 0 tramadol 50 mg tablet 50 mg PO Q8H PRN (Reason: Pain) RF: 0 OneTouch Ultra Blue Test Strip strip .ROUTE .MEDSUPPLY Qty: 10 RF: 0 hydralazine 50 mg tablet 50 mg PO QID RF: 0 No Action nitroglycerin [Nitrostat] 0.4 mg Tablet, Sublingual 0.4 mg sublingual Q5M PRN (Reason: chest pain) Qty: 1 RF: 0 metoprolol succinate [Toprol XL] 100 mg tablet extended release 24 hr 100 mg PO DAILY Qty: 30 RF: 5 isosorbide mononitrate 30 mg Tablet Extended Release 24 Hr 30 mg PO QAM Qty: 30 RF: 5 Discharge Orders: Discharge Order (Routine); Ordered 12/10/18 Ordered By: Idalia Shaw Admission Data Admit Date/Time: 12/02/18 01:18 Attending Provider: Idalia Shaw Admit Provider: Sly Ramsay Primary Care Provider: Afia Villa Other Providers: Scotty Miranda ; Yandle Heck ; Rayna Ballard ; Basilio Blank III ; Chavez Shafer Other Interventions: Discharge Summary Assessment (RN) Last Done: 12/10/18 16:35 DC Date/Time DO NOT enter until pt leaves facility: 12/10/18 17:36
== END 2018-12-10 17:36 | DRG 280 ==
LOC: ED 20:21 → SUATTDRO 12-02 01:18 → 2S 12-02 01:18

== ENCOUNTER 2018-12-13 23:51 | Inpatient (IN) ==
[2018-12-13] MEDS ORDERED: RAPID SEQUENCE INDUCTION BAG ONE (23:58)
[2018-12-14 00:45] LABS: Basophils # (auto) 0.06 K/uL (0-0.2); Basophils % (auto) 0.5 %; Eosinophils # (auto) 0.41 K/uL (0-0.5); Eosinophils % (auto) 3.7 %; Hematocrit (blood only) 42.8 % (37-47); Hemoglobin 13.9 g/dL (12.0-16.0); Immature Granulocytes # (auto) 0.27 K/uL (0.00-0.02); Immature Granulocytes % (auto) 2.5 %; Lymphocytes # (auto) 2.13 K/uL (1.2-3.4); Lymphocytes % (auto) 19.5 %; Mean Corpuscular Hemoglobin 31.4 pg (25-34); Mean Corpuscular Hgb Conc 32.5 g/dL (32-36); Mean Corpuscular Volume 96.6 fL (80-100); Mean Platelet Volume 10.1 fL (7.4-10.4); Monocytes # (auto) 0.53 K/uL (0.11-0.59); Monocytes % (auto) 4.8 %; Neutrophils # (auto) 7.54 K/uL (1.4-6.5); Platelet Count 452 K/uL (130-400); RDW Coefficient of Variation 14.1 % (11.5-14.5); Red Blood Count 4.43 M/uL (4.2-5.4); White Blood Count 10.94 K/uL (4.8-10.8)
[2018-12-14 00:55] LABS: Oxygen Saturation VBG 94.6 %; pH VBG 7.07 (7.36-7.41)
[2018-12-14 01:22] LABS: Albumin Globulin Ratio 0.5 (0.9-2); Albumin Level 2.6 gm/dl (3.4-5.0); BUN Creatinine Ratio 17.8 (10-20); Bilirubin,Total 0.3 mg/dl (0.2-1); Calcium 8.2 mg/dl (8.5-10.1); Creatinine Clr Calc Pharmacy 21.9 ml/min; Est GFR (African American) 28.7; Est GFR (Non-African American) 24.8; Globulin 4.8 gm/dl (2.5-4.0); Total Protein 7.4 gm/dl (6.4-8.2)
[2018-12-14 01:25] LABS: Troponin I 0.193 ng/ml (0-0.045)
[2018-12-14] MEDS ORDERED: BUMETANIDE 1 MG in SYRINGE 0 ML IV SCH (01:30)
[2018-12-14 01:41] LABS: Appearance Urine Turbid (Clear); Bilirubin Urine Negative (Negative); Blood Urine 2+ (Negative); Color Urine Yellow; Epithelial Cell Urine Auto 20-30 /lpf (0-5); Glucose Urine UA Negative (Negative); Ketones Urine Negative (Negative); Leukocyte Esterase Urine 3+ (Negative); Nitrite Urine Negative (Negative); Protein Urine 1+ (Negative); Specific Gravity Urine 1.011 (1.000-1.030); Urobilinogen Urine Negative (Negative); WBC Urine Automated >30 /hpf (0-5); pH Urine 5.5 (4.5-7.5)
[2018-12-14 02:14] LABS: Base Excess ABG -13.1 mEq/L (-9-1.8); HCO3 ABG 16 mmol/L (19-24); PCO2 ABG 50 mmHg (35-46); PO2 ABG 71 mm/Hg (80-95)
[2018-12-14 02:17] LABS: Allen Test POS (Pos); INR 1.1 (0.9-1.1); Partial Thromboplastin Ratio 1.1; Partial Thromboplastin Time 30.7 Seconds (21.0-31.0); Potassium 5.1 mmol/L (3.5-5.1); Prothrombin Time 10.9 Seconds (9.0-12.0)
[2018-12-14 02:18] LABS: pH ABG 7.13 (7.35-7.45)
[2018-12-14 02:23] LABS: Bacteria Urine Automated 2+ (Negative)
[2018-12-14 02:25] LABS: Cast Urine Automated 0 /lpf (0-5)
[2018-12-14] MEDS ORDERED: PROPOFOL IV EMULSION 10 MG/ML 100 ML VIAL IV ONE (02:39)
[2018-12-14] MEDS ORDERED: ICU ELECTROLYTE REPLACEMENT PROTOCOL PRN (02:47)
[2018-12-14] MEDS ORDERED: ICU PROTOCOL FOR HYPERGLYCEMIA PRN ×2 (02:47→05:55)
[2018-12-14] MEDS ORDERED: ICU MODERATE HYPERGLYCEMIA PROTOCOL ONE (02:53)
[2018-12-14] MEDS ORDERED: INSULIN REGULAR 250 UNITS in SODIUM CHLORIDE 0.9% 247.5 ML IV SCH (03:00)
[2018-12-14] MEDS ORDERED: PROPOFOL 1,000 MG/100 ML VIAL IV SCH (03:00)
[2018-12-14] MEDS ORDERED: FUROSEMIDE 100 MG in DEXTROSE 5% 90 ML IV SCH (03:30)
--- NOTE | 2018-12-14 03:37 | History & Physical Report ---
Date of Service December 14, 2018 Assessment & Plan (1) Pulmonary edema: Acute respiratory failure with hypoxemia secondary to above Acute systolic congestive heart failure exacerbation Required intubation Continue ventilatory support Admit to ICU Consult collection systems worker collection systems worker Start patient in Bumex drip 0.2 mg/h Hold lisinopril to avoid nephrotoxicity in the setting of Bumex drip Calculate I/oh (2) Respiratory failure: As above (3) Stress-induced cardiomyopathy: Continue Bumex drip IV as above (4) Multi-vessel coronary artery stenosis: Dyslipidemia Suspected mural thrombus last admission with emboli Continue Lipitor, Plavix, metoprolol, and Eliquis (5) 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, continue Zyvox (6) Hemianopia, homonymous, left: Supportive care History of Present Illness 83-year-old female with past medical history of recent stress-induced cardiomyopathy, CAD, recent [place]/non-STEMI, CVA, diabetes mellitus with diabetic foot ulcer likely right foot abscess that grew Enterococcus faecalis and coagulase-negative staph last admission, anemia, chronic kidney disease stage III, peripheral arterial disease, stage II pressure ulcer present on admission, essential hypertension, dyslipidemia, obstructive sleep apnea, diabetic polyneuropathy, 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 Patient was recently discharged 3 days ago to rehab and was doing well until developed acute onset shortness of breath brought to ED and was found to have acute pulmonary edema with hypoxemia, required immediate intubation Primary Care Provider: SEYMOUR Hoffman Allergies Allergy/AdvReac Type Severity Reaction Status Date / Time amitriptyline Allergy Intermediate BLURRED Verified 12/14/18 00:19 DOUBLE VISION gabapentin Allergy Intermediate SHAKES,VISION Verified 12/14/18 00:19 CHANGES latex Allergy Intermediate SKIN GETS Verified 12/14/18 00:19 RAW-PT HAS NO RECOLLECTION meloxicam Allergy Intermediate DIARRHEA Verified 12/14/18 00:19 metformin Allergy Intermediate HOT FLASHES Verified 12/14/18 00:19 pregabalin Allergy Intermediate DIZZINESS, Verified 12/14/18 00:19 SLEEPY acetaminophen Allergy Mild SWEATING Verified 12/14/18 00:19 pioglitazone Allergy Mild SORE Verified 12/14/18 00:19 THROAT,EAts excessively Cipro Allergy Unknown itshiness,red Verified 06/25/16 17:42 streak ciprofloxacin Allergy Unknown itchiness,red Verified 12/14/18 00:19 streak guaifenesin Allergy Unknown UNKNOWN Verified 12/14/18 00:19 metronidazole Allergy Unknown UNKNOWN Verified 12/14/18 00:19 Penicillins Allergy Unknown INJECTION Verified 12/14/18 00:19 UNKNOWN rofecoxib Allergy Unknown UNKNOWN Verified 12/14/18 00:19 rosuvastatin Allergy Unknown UNKNOWN Verified 12/14/18 00:19 simvastatin Allergy Unknown UNKNOWN Verified 12/14/18 00:19 Sulfa (Sulfonamide Allergy Unknown HIVES Verified 12/14/18 00:19 Antibiotics) tramadol Allergy Unknown SWEATING Verified 12/14/18 00:19 Tricyclic Compounds Allergy Unknown ON WINDY Verified 12/14/18 00:19 [place] LIST Home Medications Home Medications Medication Instructions Recorded Confirmed Type atorvastatin 40 mg tablet 40 mg PO HS tab 06/28/18 12/14/18 History clopidogrel 75 mg tablet 75 mg PO QPM 06/28/18 12/14/18 History insulin glargine (U- 100) 100 12 units SQ HS ml 06/28/18 12/14/18 History unit/mL subcutaneous solution topiramate 25 mg tablet 25 mg PO QAM #30 tab 11/05/18 12/14/18 History cholecalciferol (vitamin D3) 1,000 unit PO QDL 12/01/18 12/14/18 History [Vitamin D3] gabapentin 100 mg PO QAM 12/01/18 12/14/18 History lisinopril 10 mg PO QAM 12/01/18 12/14/18 History pantoprazole [Protonix] 40 mg PO DAILYBB 12/01/18 12/14/18 History apixaban [Eliquis] 2.5 mg PO BID #60 tab 12/10/18 12/14/18 Rx docusate sodium 100 mg PO BID #60 cap 12/10/18 12/14/18 Rx furosemide 20 mg PO QAM #0 tab 12/10/18 12/14/18 Rx isosorbide mononitrate 30 mg PO QAM #30 tab 12/10/18 12/14/18 Rx polyethylene glycol 3350 [Miralax] 17 g PO BID #60 ea 12/10/18 12/14/18 Rx acetaminophen [Tylenol Extra 1,000 mg PO Q6H PRN 12/14/18 12/14/18 History Strength] folic acid 1 mg PO QDL 12/14/18 12/14/18 History linezolid 600 mg PO AMHS 12/14/18 12/14/18 History metoprolol succinate 200 mg PO QAM 12/14/18 12/14/18 History Past Med/Surg History Medical History Chronic kidney disease, stage 3 (Chronic) HTN (hypertension) (Chronic) Myocardial infarction Diabetes mellitus with diabetic polyneuropathy (Acute) Ulcer of right heel (Acute) Anxiety associated with depression (Chronic) Benign recurrent vertigo (Chronic) Bilateral foot-drop (Chronic) Blood clotting disorder (Chronic) Chronic GERD (Chronic) Diabetes mellitus type 2 with complications, uncontrolled (Chronic) Gastritis (Chronic) H/O diastolic dysfunction (Chronic) H/O: CVA (cerebrovascular accident) (Chronic) Hyperlipidemia (Chronic) Hypokalemia (Chronic) Memory loss (Chronic) Nephropathy (Chronic) Neurologic gait dysfunction (Chronic) Osteoarthritis (Chronic) Polyarthritis (Chronic) Resting tremor (Chronic) Right lumbar radiculopathy (Chronic) Sleep apnea (Chronic) Stenosis of right carotid artery (Chronic) Urinary frequency (Chronic) Vitamin D deficiency (Chronic) Weight disorder (Chronic) Cataract (Resolved) Cholecystectomy planned (Resolved) H/O: hysterectomy (Resolved) Surgical History Hx of tonsillectomy (Resolved) S/P cholecystectomy S/P hysterectomy S/P tonsillectomy Social History Preferred Language: Kazakh Communication Ability: Effective Visual Impairment: No Limitations Hearing Ability: Hard of Hearing Butt Presser Required: No Beliefs That Will Affect Care: None marital status: Current Living Situation: Spouse current occupational status: retired other: 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 [employer] Feels Safe at Home: Yes Smoking Status: Never smoker Hx Alcohol Use: No Hx Substance Use: No Review of Systems Review of Systems: Review of systems unobtainable as patient is sedated intubate Physical Exam Physical Exam: Physical examination General frail elderly female that is intubated HEENT: Atraumatic , normocephalic /no jaundice /no pallor /anicteric /no dry mucous membrane /normal external ear inspection Neck: Endotracheal tube in place Heart: S1/S2 normal/regular rate and rhythm/positive gallop, 2/6 parasternal murmur Lungs: Decreased air entry bilaterally, bilateral rails Abdomen: Soft/nontender/no guarding/no rebound/no organomegaly/no pulsatile mass Musculoskeletal: No swelling/no edema/no tenderness/normal range of motion Neuro exam: Intubated sedated Psychiatric evaluation: Unable to develop Skin: No rash on exposed skin area/no erythema Extremity: Normal pulse/no pitting edema/no clubbing or cyanosis Results & Data Vital Signs (Past 12 Hours) Vital Signs Temp Pulse Resp BP Pulse Ox 12/14/18 02:37 108 H 22 93 12/14/18 02:30 109 H 92 12/14/18 02:15 114 H 92 12/14/18 02:00 111 H 169/100 H 92 12/14/18 01:45 114 H 169/96 H 92 12/14/18 01:33 96 12/14/18 01:30 114 H 176/100 H 92 12/14/18 01:15 115 H 176/105 H 92 12/14/18 01:00 114 H 167/96 H 92 12/14/18 00:58 113 H 16 95 12/14/18 00:50 111 H 168/89 H 94 12/14/18 00:45 111 H 91 12/14/18 00:40 112 H 159/86 H 94 12/14/18 00:32 111 H 97 12/14/18 00:30 111 H 154/81 H 98 12/14/18 00:29 112 H 127/96 99 12/14/18 00:20 118 H 127/96 99 12/14/18 00:16 92 12/14/18 00:15 96 12/14/18 00:03 119 H 23 12/14/18 00:00 36.3 C L 118 H 30 H 130/77 87 L PG Care Time/CCT Total # of Minutes Spent Total Time Spent with Patient: Total time spent is greater than 50% in coordination of care (as documented) at patient's floor/unit and/or counseling patient: (1) Pulmonary edema Chronicity: acute Qualified Code(s): J81.0 - Acute pulmonary edema (2) Respiratory failure Chronicity: acute Respiratory failure complication: hypoxia and hypercapnia Qualified Code(s): J96.01 - Acute respiratory failure with hypoxia; J96.02 - Acute respiratory failure with hypercapnia
[2018-12-14] MEDS ORDERED: GLUCOSE 40% GEL 15 GM TUBE PO PRN (03:45)
[2018-12-14] MEDS ORDERED: BUMETANIDE 10 MG in DEXTROSE 5% 10 ML IV SCH (03:45)
[2018-12-14] MEDS ORDERED: DEXTROSE 50% 50 ML SYRINGE IV PRN (03:45)
[2018-12-14] MEDS ORDERED: GLUCOSE 10 TABS/TUBE PO PRN (03:45)
[2018-12-14] MEDS ORDERED: GLUCAGON FOR INJ 1 MG VIAL IM PRN (03:45)
[2018-12-14] MEDS ORDERED: NovoLIN-R BOLUS FROM BAG IV ONE (03:45)
[2018-12-14] MEDS ORDERED: CARBOHYDRATES FOR HYPOGLYCEMIA PO PRN (03:45)
[2018-12-14 04:36] LABS: BUN Creatinine Ratio 19.6 (10-20); Blood Urea Nitrogen 37 mg/dl (7-18); Calcium 7.9 mg/dl (8.5-10.1); Carbon Dioxide 15 mmol/L (21-32); Chloride 102 mmol/L (98-107); Creatinine Clr Calc Pharmacy 21.7 ml/min; Est GFR (African American) 28.3; Est GFR (Non-African American) 24.4; Glucose 310 mg/dl (70-99); Phosphorus 6.2 mg/dl (2.5-4.9); Potassium 5.2 mmol/L (3.5-5.1); Sodium 129 mmol/L (136-145)
[2018-12-14] MEDS ORDERED: PHARMACY GLYCEMIC MGMT CONSULT PRN (04:43)
--- NOTE | 2018-12-14 05:39 | Critical Care Consultation ---
Date of Consultation December 14, 2018 History of Present Illness History of Present Illness Mrs. Jay is an 83-year-old female with multiple comorbidities and significant past medical history of recent and STEMI, recent CVA with residual left-sided weakness, DM type II, chronic diabetic foot ulcer, recent stress- induced cardiomyopathy, CKD stage III, HTN, HLD, who was recently discharged from the hospital to outpatient rehab. She was ambulating with walker earlier yesterday and became increasingly short of breath. She was found to be hypoxic and had frothy sputum. She was placed on nonrebreather and Allergies Allergy/AdvReac Type Severity Reaction Status Date / Time amitriptyline Allergy Intermediate BLURRED Verified 12/14/18 00:19 DOUBLE VISION gabapentin Allergy Intermediate SHAKES,VISION Verified 12/14/18 00:19 CHANGES latex Allergy Intermediate SKIN GETS Verified 12/14/18 00:19 RAW-PT HAS NO RECOLLECTION meloxicam Allergy Intermediate DIARRHEA Verified 12/14/18 00:19 metformin Allergy Intermediate HOT FLASHES Verified 12/14/18 00:19 pregabalin Allergy Intermediate DIZZINESS, Verified 12/14/18 00:19 SLEEPY acetaminophen Allergy Mild SWEATING Verified 12/14/18 00:19 pioglitazone Allergy Mild SORE Verified 12/14/18 00:19 THROAT,EAts excessively Cipro Allergy Unknown itshiness,red Verified 06/25/16 17:42 streak ciprofloxacin Allergy Unknown itchiness,red Verified 12/14/18 00:19 streak guaifenesin Allergy Unknown UNKNOWN Verified 12/14/18 00:19 metronidazole Allergy Unknown UNKNOWN Verified 12/14/18 00:19 Penicillins Allergy Unknown INJECTION Verified 12/14/18 00:19 UNKNOWN rofecoxib Allergy Unknown UNKNOWN Verified 12/14/18 00:19 rosuvastatin Allergy Unknown UNKNOWN Verified 12/14/18 00:19 simvastatin Allergy Unknown UNKNOWN Verified 12/14/18 00:19 Sulfa (Sulfonamide Allergy Unknown HIVES Verified 12/14/18 00:19 Antibiotics) tramadol Allergy Unknown SWEATING Verified 12/14/18 00:19 Tricyclic Compounds Allergy Unknown ON WINDY Verified 12/14/18 00:19 [place] LIST Home Medications Home Medications Medication Instructions Recorded Confirmed Type atorvastatin 40 mg tablet 40 mg PO HS tab 06/28/18 12/14/18 History clopidogrel 75 mg tablet 75 mg PO QPM 06/28/18 12/14/18 History insulin glargine (U- 100) 100 12 units SQ HS ml 06/28/18 12/14/18 History unit/mL subcutaneous solution topiramate 25 mg tablet 25 mg PO QAM #30 tab 11/05/18 12/14/18 History cholecalciferol (vitamin D3) 1,000 unit PO QDL 12/01/18 12/14/18 History [Vitamin D3] gabapentin 100 mg PO QAM 12/01/18 12/14/18 History lisinopril 10 mg PO QAM 12/01/18 12/14/18 History pantoprazole [Protonix] 40 mg PO DAILYBB 12/01/18 12/14/18 History apixaban [Eliquis] 2.5 mg PO BID #60 tab 12/10/18 12/14/18 Rx docusate sodium 100 mg PO BID #60 cap 12/10/18 12/14/18 Rx furosemide 20 mg PO QAM #0 tab 12/10/18 12/14/18 Rx isosorbide mononitrate 30 mg PO QAM #30 tab 12/10/18 12/14/18 Rx polyethylene glycol 3350 [Miralax] 17 g PO BID #60 ea 12/10/18 12/14/18 Rx acetaminophen [Tylenol Extra 1,000 mg PO Q6H PRN 12/14/18 12/14/18 History Strength] folic acid 1 mg PO QDL 12/14/18 12/14/18 History linezolid 600 mg PO AMHS 12/14/18 12/14/18 History metoprolol succinate 200 mg PO QAM 12/14/18 12/14/18 History Patient History Medical History Chronic kidney disease, stage 3 (Chronic) HTN (hypertension) (Chronic) Myocardial infarction Diabetes mellitus with diabetic polyneuropathy (Acute) Ulcer of right heel (Acute) Anxiety associated with depression (Chronic) Benign recurrent vertigo (Chronic) Bilateral foot-drop (Chronic) Blood clotting disorder (Chronic) Chronic GERD (Chronic) Diabetes mellitus type 2 with complications, uncontrolled (Chronic) Gastritis (Chronic) H/O diastolic dysfunction (Chronic) H/O: CVA (cerebrovascular accident) (Chronic) Hyperlipidemia (Chronic) Hypokalemia (Chronic) Memory loss (Chronic) Nephropathy (Chronic) Neurologic gait dysfunction (Chronic) Osteoarthritis (Chronic) Polyarthritis (Chronic) Resting tremor (Chronic) Right lumbar radiculopathy (Chronic) Sleep apnea (Chronic) Stenosis of right carotid artery (Chronic) Urinary frequency (Chronic) Vitamin D deficiency (Chronic) Weight disorder (Chronic) Cataract (Resolved) Cholecystectomy planned (Resolved) H/O: hysterectomy (Resolved) Surgical History Hx of tonsillectomy (Resolved) S/P cholecystectomy S/P hysterectomy S/P tonsillectomy Social History Preferred Language: Barbadian Communication Ability: Effective Communication Ability Comment: INTUBATED. 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 [employer] Feels Safe at Home: Yes Smoking Status: Never smoker Hx Alcohol Use: No Hx Substance Use: No Results & Data Vital Signs (Past 12 Hours) Vital Signs Temp Pulse Resp BP Pulse Ox 12/14/18 04:45 81 110/69 94 12/14/18 04:39 85 107/56 L 94 12/14/18 04:32 78 93 12/14/18 04:30 80 93 12/14/18 04:15 88 94 12/14/18 04:01 95 H 127/76 96 12/14/18 04:00 90 96 12/14/18 03:45 97 H 96 12/14/18 03:30 103 H 157/102 H 95 12/14/18 03:15 98 H 94 12/14/18 03:00 103 H 167/104 H 93 12/14/18 02:45 107 H 93 12/14/18 02:37 108 H 22 93 12/14/18 02:30 109 H 92 12/14/18 02:15 114 H 92 12/14/18 02:00 111 H 169/100 H 92 12/14/18 01:45 114 H 169/96 H 92 12/14/18 01:33 96 12/14/18 01:30 114 H 176/100 H 92 12/14/18 01:15 115 H 176/105 H 92 12/14/18 01:00 114 H 167/96 H 92 12/14/18 00:58 113 H 16 95 12/14/18 00:50 111 H 168/89 H 94 12/14/18 00:45 111 H 91 12/14/18 00:40 112 H 159/86 H 94 12/14/18 00:32 111 H 97 12/14/18 00:30 111 H 154/81 H 98 12/14/18 00:29 112 H 127/96 99 12/14/18 00:20 118 H 127/96 99 12/14/18 00:16 92 12/14/18 00:15 96 12/14/18 00:03 119 H 23 12/14/18 00:00 36.3 C L 118 H 30 H 130/77 87 L PG Care Time/CCT Total # of Minutes Spent Total Time Spent with Patient: Total time spent is greater than 50% in coordination of care (as documented) at patient's floor/unit and/or counseling patient:
[2018-12-14] MEDS ORDERED: ACETAMINOPHEN 500 MG TAB PO PRN (05:55)
[2018-12-14 06:23] LABS: iSTAT Allen Test Pass; iSTAT Art Bld Gas pCO2 Correct 29 mmHg (35-46); iSTAT Art Bld Gas pH Corrected 7.264 (7.35-7.45); iSTAT Arterial Blood Gas HCO3 13 meg/L (19-24); iSTAT Arterial Blood Gas pCO2 29 mmHg (35-46); iSTAT Arterial Blood Gas pH 7.26 (7.35-7.45); iSTAT Arterial Blood Gas pO2 73 mmHg (80-95); iSTAT Arterial Blood Gas pO2 C 70; iSTAT Carbon Dioxide 14 mEq/l (24-31); iSTAT Site L Brachial
[2018-12-14] MEDS ORDERED: PANTOprazole 40 MG TAB PO SCH (06:30)
[2018-12-14] MEDS ORDERED: PNEUMOCOCCAL ADMINISTRATION CHARGE ONE (06:30)
[2018-12-14] MEDS ORDERED: PNEUMOCOCCAL POLYSACCHARIDES 25 MCG/0.5 ML VIAL/SYR IM ONE (06:30)
--- NOTE | 2018-12-14 07:28 | XRay Report ---
XR chest 1V portable HISTORY: Dyspnea COMPARISON: Chest 12/01/2018. FINDINGS: The endotracheal tube terminates approximately 2.5 cm from the mounika. No pneumothorax. The heart is top normal in size. Interval progression of bilateral hazy airspace opacities and interstit ial thickening, right greater than left. This favors pulmonary edema. Left basilar opacity/effusion i s also noted. IMPRESSION: 1. The endotracheal tube terminates 2.5 cm from the mounika. 2. Interval development of advanced pulmonary edema and a small left basilar opacity/effusion. Electronically signed by: Chavez Lozada M.D. 12/14/2018 7:26 AM
[2018-12-14 07:29] LABS: Beta-Hydroxybutyrate 0.77 mg/dl (0.2-2.81); NT Pro B Type Natriuretic Pept > 35000 pg/ml (0-1800)
--- NOTE | 2018-12-14 07:38 | Emergency Department Note ---
Entered by Emory Rodriguez acting as a scribe for History of Present Illness General Chief complaint: Shortness of Breath/Dyspnea Time Seen by Provider: 12/14/18 00:29 Source: EMS and other (nurse) Limitations: other (clinical condition) History of Present Illness Onset (ago): day(s) (tonight) Location: chest Pain Consistency: + constant Quality: + other (SOB) Associated symptoms: + other (Positive for CP and foaming at the mouth.) The patient is an 83 year old female who presents to the emergency department with complaints of constant SOB beginning tonight. Per EMS, the patient is from [facility]. EMS states that the patient developed SOB and CP after eating dinner tonight. EMS notes that the patients oxygen saturation was originally at 84%. EMS reports that the patient was trialed on CPAP but states that the patients oxygen saturation then went down into the 60s and she became more obtunded. EMS notes that the patient was given 4 nitroglycerin en route to the emergency department. EMS reports that the patient started foaming at the mouth just prior to arrival. Per nurses, the patient was discharged from the hospital recently after having an DE. She states that the patient is on Eliquis. HPI limited secondary to patient's clinical condition. Home Medications Home Medications Medication Instructions Recorded Confirmed Type atorvastatin 40 mg tablet 40 mg PO HS tab 06/28/18 12/14/18 History clopidogrel 75 mg tablet 75 mg PO QPM 06/28/18 12/14/18 History insulin glargine (U- 100) 100 12 units SQ HS ml 06/28/18 12/14/18 History unit/mL subcutaneous solution topiramate 25 mg tablet 25 mg PO QAM #30 tab 11/05/18 12/14/18 History cholecalciferol (vitamin D3) 1,000 unit PO QDL 12/01/18 12/14/18 History [Vitamin D3] gabapentin 100 mg PO QAM 12/01/18 12/14/18 History lisinopril 10 mg PO QAM 12/01/18 12/14/18 History pantoprazole [Protonix] 40 mg PO DAILYBB 12/01/18 12/14/18 History apixaban [Eliquis] 2.5 mg PO BID #60 tab 12/10/18 12/14/18 Rx docusate sodium 100 mg PO BID #60 cap 12/10/18 12/14/18 Rx furosemide 20 mg PO QAM #0 tab 12/10/18 12/14/18 Rx isosorbide mononitrate 30 mg PO QAM #30 tab 12/10/18 12/14/18 Rx polyethylene glycol 3350 [Miralax] 17 g PO BID #60 ea 12/10/18 12/14/18 Rx acetaminophen [Tylenol Extra 1,000 mg PO Q6H PRN 12/14/18 12/14/18 History Strength] folic acid 1 mg PO QDL 12/14/18 12/14/18 History linezolid 600 mg PO AMHS 12/14/18 12/14/18 History metoprolol succinate 200 mg PO QAM 12/14/18 12/14/18 History Allergies Allergy/AdvReac Type Severity Reaction Status Date / Time amitriptyline Allergy Intermediate BLURRED Verified 12/14/18 00:19 DOUBLE VISION gabapentin Allergy Intermediate SHAKES,VISION Verified 12/14/18 00:19 CHANGES latex Allergy Intermediate SKIN GETS Verified 12/14/18 00:19 RAW-PT HAS NO RECOLLECTION meloxicam Allergy Intermediate DIARRHEA Verified 12/14/18 00:19 metformin Allergy Intermediate HOT FLASHES Verified 12/14/18 00:19 pregabalin Allergy Intermediate DIZZINESS, Verified 12/14/18 00:19 SLEEPY acetaminophen Allergy Mild SWEATING Verified 12/14/18 00:19 pioglitazone Allergy Mild SORE Verified 12/14/18 00:19 THROAT,EAts excessively Cipro Allergy Unknown itshiness,red Verified 06/25/16 17:42 streak ciprofloxacin Allergy Unknown itchiness,red Verified 12/14/18 00:19 streak guaifenesin Allergy Unknown UNKNOWN Verified 12/14/18 00:19 metronidazole Allergy Unknown UNKNOWN Verified 12/14/18 00:19 Penicillins Allergy Unknown INJECTION Verified 12/14/18 00:19 UNKNOWN rofecoxib Allergy Unknown UNKNOWN Verified 12/14/18 00:19 rosuvastatin Allergy Unknown UNKNOWN Verified 12/14/18 00:19 simvastatin Allergy Unknown UNKNOWN Verified 12/14/18 00:19 Sulfa (Sulfonamide Allergy Unknown HIVES Verified 12/14/18 00:19 Antibiotics) tramadol Allergy Unknown SWEATING Verified 12/14/18 00:19 Tricyclic Compounds Allergy Unknown ON WINDY Verified 12/14/18 00:19 HILL LIST Past Med/Surg History Medical History Chronic kidney disease, stage 3 (Chronic) HTN (hypertension) (Chronic) Myocardial infarction Diabetes mellitus with diabetic polyneuropathy (Acute) Ulcer of right heel (Acute) Anxiety associated with depression (Chronic) Benign recurrent vertigo (Chronic) Bilateral foot-drop (Chronic) Blood clotting disorder (Chronic) Chronic GERD (Chronic) Diabetes mellitus type 2 with complications, uncontrolled (Chronic) Gastritis (Chronic) H/O diastolic dysfunction (Chronic) H/O: CVA (cerebrovascular accident) (Chronic) Hyperlipidemia (Chronic) Hypokalemia (Chronic) Memory loss (Chronic) Nephropathy (Chronic) Neurologic gait dysfunction (Chronic) Osteoarthritis (Chronic) Polyarthritis (Chronic) Resting tremor (Chronic) Right lumbar radiculopathy (Chronic) Sleep apnea (Chronic) Stenosis of right carotid artery (Chronic) Urinary frequency (Chronic) Vitamin D deficiency (Chronic) Weight disorder (Chronic) Cataract (Resolved) Cholecystectomy planned (Resolved) H/O: hysterectomy (Resolved) Surgical History Hx of tonsillectomy (Resolved) S/P cholecystectomy S/P hysterectomy S/P tonsillectomy Family History Mother , in her 80s of a cerebral aneurysm Heart disease Stroke Tremor Father , in his 80s of heart disease Heart disease Other No pertinent family history Social History Preferred Language: Kinyarwanda Communication Ability: Unable Communication Ability Comment: INTUBATED. 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 Physical Exam Vital Signs Vital Signs - 24 hr 12/14/18 04:11 12/14/18 04:15 12/14/18 04:30 Rectal Temperature - Source 2 37.1 C 37.2 C End-Tidal CO2 22 23 Pulse Rate 88 80 Pulse Rate from SpO2 Sensor 88 80 Pulse Oximetry 94 93 Fraction of Inspired Oxygen 60 12/14/18 04:32 Rectal Temperature - Source 2 37.2 C End-Tidal CO2 24 Pulse Rate 78 Pulse Rate from SpO2 Sensor 79 Pulse Oximetry 93 Fraction of Inspired Oxygen General: Semi-responsive, severe respiratory distress with excessive pink frothy sputum coming from mouth. HEENT: Head - normocephalic and atraumatic. Pupils are equal, round, and reactive to light. Extraocular eye muscles are intact, and sclera are anicteric. Nose - moist nasal mucosa without discharge. Mouth - moist buccal mucosa. Oropharynx is nonerythematous and there is no tonsillar exudate or edema noted. Neck: Supple; no JVD or nuchal rigidity. Heart: Regular rhythm and tachycardic. There is a normal S1 and S2 with no murmurs, clicks, or gallops appreciated. Lungs: No wheezes or rhonchi. Diminished breath sounds in all lung irwin with diffuse rales. Abdomen: Soft, completely nontender, nondistended, with good bowel sounds. There are no palpable pulsatile masses or hepatosplenomegaly. There is no guarding, rigidity, or rebound noted. Extremities: No evidence of cyanosis or clubbing There are easily palpable peripheral pulses. 2+ pitting edema in the legs. Skin: warm and dry with good turgor and no rashes. Procedures Free Text Procedures Endotracheal Intubation Indication: Respiratory failure The patient was on 100% oxygen via BVM prior to the procedure. Suction, airway equipment, RSI drugs, respiratory equipment, and appropriate personnel were prepared prior to the initiation of the procedure. A time out was taken. Induction was performed with etomidate and succinylcholine. After observing the clinical benefit of the medications, the airway was easily visualized utilizing a glidescope. A 7.5 size ETT tube was placed atraumatically to 23 cm using standard technique. The cuff inflated without signs of malfunction. There were bilateral breath sounds, positive colormetric change, no gastric sounds, a good capnography waveform, and post procedure pulse oximetry was 98%. Post intubation sedation and paralysis was administered using vecuronium and versed. There were no complications. Course 2352: The patient was evaluated in room A1. A complete history and physical examination were performed. Nursing notes and previous electronic medical records were reviewed. Multiple attempts were made at IV lock placement but were unsuccessful. A twelve-lead EKG was obtained. Dr. Low spoke with the patient's family to confirm CODE STATUS. 0015: IO was placed in the patient's left proximal tibia. 0016: 20 Etomidate IO 0017: 140 Succinylcholine IO 0018: The patient was intubated as described above. A post intubation x-ray was performed. ET tube was in good position. The patient has severe pulmonary forrest ma noted. 0027: I spoke to the patient's . 0102: I discussed the patient's case with Álvaro AHUJA, Unclaimed Property Manager, MARTIN. 0106: Upon reevaluation, the patient is stable. I discussed the findings and the treatment plan with the patient's . He expresses agreement and understanding. I spoke with MARTIN Winston. The patient will be evaluated for further management. 0125: I spoke to the patient's again. 0152: I rechecked the patient. She is tolerating the ventilator. Her vitals are stable and an OG tube was placed 0154: An ABG will be obtained. Bumetanide 1mg in Syringe 4 mls @ 4mls/min IV Consultations Consultation #1: I discussed the patient's case with Álvaro AHUJA, Unclaimed Property Manager, MARTIN. Time: 01:02 Consultation #2: I reviewed the patient's case with MARTIN Winston. He will evaluate the patient for further management. Time: 01:06 Administered Medications Acetaminophen (Tylenol) 1,000 mg PO Q6H PRN PRN Reason: Pain Stop: 01/13/19 05:54 Last Admin: 12/14/18 21:21 Dose: 1,000 mg Documented by: [id number] Atorvastatin Calcium (Lipitor) 40 mg PO HS MINDY Stop: 01/13/19 20:59 Last Admin: 12/14/18 20:24 Dose: 40 mg Documented by: [id number] Clopidogrel Bisulfate (Plavix) 75 mg PO QPM MINDY Stop: 01/13/19 20:59 Last Admin: 12/14/18 20:26 Dose: 75 mg Documented by: [id number] Docusate Sodium (Colace) 100 mg PO BID [facility] Stop: 01/13/19 20:59 Last Admin: 12/14/18 20:22 Dose: 100 mg Documented by: [id number] Enteral Nutritional Formula (Impact 1.0 Gee) 1,000 ml OG UD [facility]; Protocol Stop: 01/13/19 11:59 Last Admin: 12/14/18 15:32 Dose: 1,000 ml Documented by: [id number] Folic Acid (Folvite) 1 mg PO QDL [facility] Stop: 01/13/19 11:29 Last Admin: 12/14/18 11:55 Dose: 1 mg Documented by: [id number] Heparin Sodium/Dextrose (Heparin Sodium/Dextrose) 25,000 units in 500 mls @ 21 mls/hr IV .[id number] [facility]; Protocol Stop: 01/13/19 08:14 Last Titration: 12/14/18 23:10 Dose: 1,050 units/hr, 21 mls/hr Documented by: [id number] Cosigned by: [id number] Titration: 12/14/18 17:32 Dose: 1,050 units/hr, 21 mls/hr Documented by: [id number] Cosigned by: [id number] Titration: 12/14/18 15:08 Dose: 1,050 units/hr, 21 mls/hr Documented by: [id number] Cosigned by: [id number] Admin: 12/14/18 08:53 Dose: 1,050 units/hr, 21 mls/hr Documented by: [id number] Cosigned by: [id number] Cefepime HCl 1,000 mg/ Syringe 11.3 mls @ 5.5 mls/min IV Q24H [facility]; Protocol Stop: 12/24/18 08:59 Last Admin: 12/14/18 10:30 Dose: 5.5 mls/min Documented by: [id number] Famotidine 20 mg/ Syringe 5 mls @ 2.5 mls/min IV BID [facility] Stop: 01/13/19 20:59 Last Admin: 12/14/18 20:22 Dose: 2.5 mls/min Documented by: [id number] Insulin Aspart (Novolog Flexpen) 0 units SC Q4H [facility]; Protocol Stop: 01/13/19 11:59 Last Admin: 12/15/18 00:23 Dose: 3 units Documented by: [id number] Cosigned by: [id number] Admin: 12/14/18 20:21 Dose: 3 units Documented by: [id number] Cosigned by: [id number] Admin: 12/14/18 16:29 Dose: Not Given Documented by: [id number] Cosigned by: [id number] Admin: 12/14/18 13:00 Dose: Not Given Documented by: [id number] Cosigned by: [id number] Insulin Glargine (Lantus Solostar Pen) 12 units SC HS MINDY Stop: 01/13/19 20:59 Last Admin: 12/14/18 20:42 Dose: 12 units Documented by: [id number] Cosigned by: [id number] Metoprolol Tartrate (Lopressor) 12.5 mg PO Q6H [facility] Stop: 01/14/19 00:00 Last Admin: 12/15/18 00:26 Dose: 12.5 mg Documented by: [id number] Pantoprazole Sodium (Protonix) 40 mg PO DAILYBB [facility] Stop: 01/13/19 06:29 Last Admin: 12/14/18 07:52 Dose: Not Given Documented by: [id number] Discontinued Medications Docusate Sodium (Colace) 100 mg PO BID [facility] Stop: 01/13/19 08:59 Last Admin: 12/14/18 07:59 Dose: Not Given Documented by: [id number] Gabapentin (Neurontin) 100 mg PO QAM [facility] Stop: 01/13/19 08:59 Last Admin: 12/14/18 08:02 Dose: 100 mg Documented by: [id number] Bumetanide 1 mg/ Syringe 4 mls @ 4 mls/min IV NOW [facility] Stop: 01/13/19 01:29 Last Admin: 12/14/18 01:54 Dose: 4 mls/min Documented by: [id number] Insulin Human Regular 250 (units/ Sodium Chloride) 250 mls @ 0 mls/hr IV .Q0M MINDY; Protocol Stop: 01/13/19 02:59 Last Titration: 12/14/18 12:00 Dose: 0 units/hr, 0 mls/hr Documented by: [id number] Cosigned by: [id number] Titration: 12/14/18 11:15 Dose: 1.3 units/hr, 1.3 mls/hr Documented by: [id number] Cosigned by: [id number] Titration: 12/14/18 10:00 Dose: 1.6 units/hr, 1.6 mls/hr Documented by: [id number] Cosigned by: [id number] Titration: 12/14/18 09:15 Dose: 2 units/hr, 2 mls/hr Documented by: [id number] Cosigned by: [id number] Titration: 12/14/18 08:44 Dose: 0 units/hr, 0 mls/hr Documented by: [id number] Cosigned by: [id number] Titration: 12/14/18 06:30 Dose: 3.4 units/hr, 3.4 mls/hr Documented by: [id number] Cosigned by: [id number] Titration: 12/14/18 05:30 Dose: 2.8 units/hr, 2.8 mls/hr Documented by: [id number] Cosigned by: [id number] Admin: 12/14/18 04:32 Dose: 2.8 units/hr, 2.8 mls/hr Documented by: [id number] Cosigned by: [id number] Propofol (Diprivan) 1,000 mg in 100 mls @ 0 mls/hr IV .Q0M MINDY; Protocol Stop: 12/17/18 02:59 Last Titration: 12/14/18 15:53 Dose: 0 mcg/kg/min, 0 mls/hr Documented by: [id number] Titration: 12/14/18 07:15 Dose: 0 mcg/kg/min, 0 mls/hr Documented by: [id number] Admin: 12/14/18 06:27 Dose: 5 mcg/kg/min, 2.2 mls/hr Documented by: [id number] Cosigned by: [id number] Furosemide 100 mg/ Dextrose 100 mls @ 5 mls/hr IV .Q20H MINDY Stop: 01/13/19 03:29 Last Admin: 12/14/18 06:38 Dose: Not Given Documented by: [id number] Bumetanide 10 mg/ Dextrose 50 mls @ 1 mls/hr IV .Q24H MINDY Stop: 01/13/19 03:44 Last Infusion: 12/14/18 08:00 Dose: 0 mg/hr, 0 mls/hr Documented by: [id number] Admin: 12/14/18 06:28 Dose: 0.2 mg/hr, 1 mls/hr Documented by: [id number] Vancomycin HCl 1,750 mg/ (Sodium Chloride) 535 mls @ 200 mls/hr IV NOW ONE Stop: 12/14/18 12:21 Last Admin: 12/14/18 14:59 Dose: Not Given Documented by: [id number] Vancomycin HCl 1,500 mg/ (Sodium Chloride) 530 mls @ 200 mls/hr IV NOW ONE Stop: 12/14/18 18:08 Last Infusion: 12/14/18 18:11 Dose: 0 mls/hr Documented by: [id number] Admin: 12/14/18 15:32 Dose: 200 mls/hr Documented by: [id number] Parenteral Electrolytes (Normosol-R) 500 mls @ 999 mls/hr IV .Q31M ONE Stop: 12/15/18 00:18 Last Infusion: 12/15/18 01:10 Dose: 0 mls/hr Documented by: [id number] Admin: 12/15/18 00:34 Dose: 999 mls/hr Documented by: [id number] Insulin Aspart (Novolog Flexpen) 0 units SC ACHS [facility] Stop: 01/13/19 07:29 Last Admin: 12/14/18 11:56 Dose: Not Given Documented by: [id number] Cosigned by: [id number] Admin: 12/14/18 07:56 Dose: Not Given Documented by: [id number] Cosigned by: [id number] Insulin Human Regular (Novolin R Bolus From Bag) 3 units IV ONE ONE Stop: 12/14/18 03:46 Last Admin: 12/14/18 04:35 Dose: 3 units Documented by: [id number] Cosigned by: [id number] [place]osorbide Mononitrate ([place]ur Extended Rel) [facility]: 01/13/19 08:59 Last Admin: 12/14/18 08:01 Dose: 30 mg Documented by: [id number] Linezolid (Zyvox) 600 mg PO AMHS [facility] Stop: 01/25/19 08:59 Last Admin: 12/14/18 08:01 Dose: 600 mg Documented by: [id number] Metoprolol Succinate (Toprol Xl) 200 mg PO QAM [facility] Stop: 01/13/19 08:59 Last Admin: 12/14/18 14:59 Dose: Not Given Documented by: [id number] Metoprolol Tartrate (Lopressor) 100 mg PO BID [facility] Stop: 01/13/19 20:59 Last Admin: 12/14/18 20:25 Dose: 100 mg Documented by: [id number] Miscellaneous () Confirm Administered Dose 1 ea .ROUTE .STK-MED ONE Stop: 12/13/18 23:59 Last Admin: 12/14/18 01:17 Dose: 1 ea Documented by: [id number] Propofol (Diprivan) Confirm Administered Dose 1,000 mg IV .STK-MED ONE Stop: 12/14/18 02:40 Last Admin: 12/14/18 02:47 Dose: 1,000 mg Documented by: [id number] Cosigned by: [id number] Topiramate (Topamax) 25 mg PO QAM [facility] Stop: 01/13/19 08:59 Last Admin: 12/14/18 08:00 Dose: 25 mg Documented by: [id number] Medical Decision Making Differential Diagnosis Differential diagnoses include: CHF, PE, pneumonia, pulmonary edema, and acute DE. Medical Records Attestation: I reviewed the patient's medical records. Home Medications Current Medication List: was personally reviewed by me Laboratory Data Attestation: I reviewed the patient's lab results. Result diagrams: 12/14/18 00:27 12/14/18 23:33 Lab Results 12/14/18 12/14/18 12/14/18 Range/Units 00:27 00:27 00:27 WBC 10.94 H (4.8-10.8) K/uL RBC 4.43 (4.2-5.4) M/uL Hgb 13.9 (12.0-16.0) g/dL Hct 42.8 (37-47) % MCV 96.6 (80-100) fL MCH 31.4 (25-34) pg MCHC 32.5 (32-36) g/dL RDW Std Deviation 50.0 H (36.4-46.3) fL RDW Coeff of Ciera 14.1 (11.5-14.5) % Plt Count 452 H (130-400) K/uL MPV 10.1 (7.4-10.4) fL Immature Gran % (Auto) 2.5 % Neut % (Auto) 69.0 % Lymph % (Auto) 19.5 % [place] % (Auto) 4.8 % Eos % (Auto) 3.7 % Baso % (Auto) 0.5 % Immature Gran # (Auto) 0.27 H (0.00-0.02) K/uL Neut # (Auto) 7.54 H (1.4-6.5) K/uL Lymph # (Auto) 2.13 (1.2-3.4) K/uL [place] # (Auto) 0.53 (0.11-0.59) K/uL Eos # (Auto) 0.41 (0-0.5) K/uL Baso # (Auto) 0.06 (0-0.2) K/uL PT Cancelled INR Cancelled APTT Cancelled PTT Ratio Cancelled ABG pH (7.35-7.45) ABG pCO2 (35-46) mmHg ABG pO2 (80-95) mm/Hg ABG HCO3 (19-24) mmol/L ABG O2 Saturation (90-95) % ABG Base Excess (-9-1.8) mEq/L Jorge Test (Pos) VBG pH (7.36-7.41) VBG pCO2 (38-50) mmHg VBG pO2 mmHg VBG HCO3 mmol/L VBG O2 Saturation % VBG Base Excess mEq/L Barometric Pressure mm/Hg Oxygen Given Sodium 129 L (136-145) mmol/L Potassium (3.5-5.1) mmol/L Chloride 100 (98-107) mmol/L Carbon Dioxide 16 L (21-32) mmol/L Anion Gap 13.0 H (3-11) BUN 33 H (7-18) mg/dl Creatinine 1.86 H (0.6-1.2) mg/dl Est Cr Clr Drug Dosing 21.9 ml/min Est GFR ( Amer) 28.7 Est GFR (Non-Af Amer) 24.8 BUN/Creatinine Ratio 17.8 (10-20) Glucose 347 H* (70-99) mg/dl POC Glucose (70-99) Lactate (0.4-2.0) mmol/L Calcium 8.2 L (8.5-10.1) mg/dl Phosphorus (2.5-4.9) mg/dl Magnesium (1.8-2.4) mg/dl Total Bilirubin 0.3 (0.2-1) mg/dl AST (15-37) U/L ALT 16 (12-78) U/L Alkaline Phosphatase 134 H (45-117) U/L Troponin I 0.193 H* (0-0.045) ng/ml Total Protein 7.4 (6.4-8.2) gm/dl Albumin 2.6 L (3.4-5.0) gm/dl Globulin 4.8 H (2.5-4.0) gm/dl Albumin/Globulin Ratio 0.5 L (0.9-2) Beta-Hydroxybutyric Acd (0.2-2.81) mg/dl Urine Color Urine Appearance (Clear) Urine pH (4.5-7.5) Ur Specific [place] (1.000-1.030) Urine Protein (Negative) Urine Glucose (UA) (Negative) Urine Ketones (Negative) Urine Blood (Negative) Urine Nitrite (Negative) Urine Bilirubin (Negative) Urine Urobilinogen (Negative) Ur Leukocyte Esterase (Negative) Urine WBC (Auto) (0-5) /hpf Urine RBC (Auto) (0-4) /hpf U Hyaline Cast (Auto) (0-5) /lpf U Epithel Cells (Auto) (0-5) /lpf Urine Bacteria (Auto) (Negative) Urine Yeast 12/14/18 12/14/18 12/14/18 Range/Units 00:27 01:20 01:58 WBC (4.8-10.8) K/uL RBC (4.2-5.4) M/uL Hgb (12.0-16.0) g/dL Hct (37-47) % MCV (80-100) fL MCH (25-34) pg MCHC (32-36) g/dL RDW Std Deviation (36.4-46.3) fL RDW Coeff of Ciera (11.5-14.5) % Plt Count (130-400) K/uL MPV (7.4-10.4) fL Immature Gran % (Auto) % Neut % (Auto) % Lymph % (Auto) % [place] % (Auto) % Eos % (Auto) % Baso % (Auto) % Immature Gran # (Auto) (0.00-0.02) K/uL Neut # (Auto) (1.4-6.5) K/uL Lymph # (Auto) (1.2-3.4) K/uL [place] # (Auto) (0.11-0.59) K/uL Eos # (Auto) (0-0.5) K/uL Baso # (Auto) (0-0.2) K/uL PT INR APTT PTT Ratio ABG pH (7.35-7.45) ABG pCO2 (35-46) mmHg ABG pO2 (80-95) mm/Hg ABG HCO3 (19-24) mmol/L ABG O2 Saturation (90-95) % ABG Base Excess (-9-1.8) mEq/L Jorge Test (Pos) VBG pH 7.07 L (7.36-7.41) VBG pCO2 58 H (38-50) mmHg VBG pO2 95 mmHg VBG HCO3 16 mmol/L VBG O2 Saturation 94.6 % VBG Base Excess -14.0 mEq/L Barometric Pressure 734.5 mm/Hg Oxygen Given Sodium (136-145) mmol/L Potassium 5.1 (3.5-5.1) mmol/L Chloride (98-107) mmol/L Carbon Dioxide (21-32) mmol/L Anion Gap (3-11) BUN (7-18) mg/dl Creatinine (0.6-1.2) mg/dl Est Cr Clr Drug Dosing ml/min Est GFR ( Amer) Est GFR (Non-Af Amer) BUN/Creatinine Ratio (10-20) Glucose (70-99) mg/dl POC Glucose (70-99) Lactate (0.4-2.0) mmol/L Calcium (8.5-10.1) mg/dl Phosphorus (2.5-4.9) mg/dl Magnesium 2.0 (1.8-2.4) mg/dl Total Bilirubin (0.2-1) mg/dl AST 31 (15-37) U/L ALT (12-78) U/L Alkaline Phosphatase (45-117) U/L Troponin I (0-0.045) ng/ml Total Protein (6.4-8.2) gm/dl Albumin (3.4-5.0) gm/dl Globulin (2.5-4.0) gm/dl Albumin/Globulin Ratio (0.9-2) Beta-Hydroxybutyric Acd (0.2-2.81) mg/dl Urine Color Yellow Urine Appearance Turbid A (Clear) Urine pH 5.5 (4.5-7.5) Ur Specific [place] 1.011 (1.000-1.030) Urine Protein 1+ H (Negative) Urine Glucose (UA) Negative (Negative) Urine Ketones Negative (Negative) Urine Blood 2+ H (Negative) Urine Nitrite Negative (Negative) Urine Bilirubin Negative (Negative) Urine Urobilinogen Negative (Negative) Ur Leukocyte Esterase 3+ H (Negative) Urine WBC (Auto) >30 H (0-5) /hpf Urine RBC (Auto) 10-30 H (0-4) /hpf U Hyaline Cast (Auto) 0 (0-5) /lpf U Epithel Cells (Auto) 20-30 H (0-5) /lpf Urine Bacteria (Auto) 2+ H (Negative) Urine Yeast Not Reportable 12/14/18 12/14/18 12/14/18 Range/Units 01:58 01:58 03:10 WBC (4.8-10.8) K/uL RBC (4.2-5.4) M/uL Hgb (12.0-16.0) g/dL Hct (37-47) % MCV (80-100) fL MCH (25-34) pg MCHC (32-36) g/dL RDW Std Deviation (36.4-46.3) fL RDW Coeff of Ciera (11.5-14.5) % Plt Count (130-400) K/uL MPV (7.4-10.4) fL Immature Gran % (Auto) % Neut % (Auto) % Lymph % (Auto) % [place] % (Auto) % Eos % (Auto) % Baso % (Auto) % Immature Gran # (Auto) (0.00-0.02) K/uL Neut # (Auto) (1.4-6.5) K/uL Lymph # (Auto) (1.2-3.4) K/uL [place] # (Auto) (0.11-0.59) K/uL Eos # (Auto) (0-0.5) K/uL Baso # (Auto) (0-0.2) K/uL PT 10.9 INR 1.1 APTT 30.7 PTT Ratio 1.1 ABG pH 7.13 L* (7.35-7.45) ABG pCO2 50 H (35-46) mmHg ABG pO2 71 L (80-95) mm/Hg ABG HCO3 16 L (19-24) mmol/L ABG O2 Saturation 90.0 (90-95) % ABG Base Excess -13.1 L (-9-1.8) mEq/L Jorge Test POS (Pos) VBG pH (7.36-7.41) VBG pCO2 (38-50) mmHg VBG pO2 mmHg VBG HCO3 mmol/L VBG O2 Saturation % VBG Base Excess mEq/L Barometric Pressure 734.8 mm/Hg Oxygen Given 100 Sodium (136-145) mmol/L Potassium (3.5-5.1) mmol/L Chloride (98-107) mmol/L Carbon Dioxide (21-32) mmol/L Anion Gap (3-11) BUN (7-18) mg/dl Creatinine (0.6-1.2) mg/dl Est Cr Clr Drug Dosing ml/min Est GFR ( Amer) Est GFR (Non-Af Amer) BUN/Creatinine Ratio (10-20) Glucose (70-99) mg/dl POC Glucose 315 H* (70-99) Lactate (0.4-2.0) mmol/L Calcium (8.5-10.1) mg/dl Phosphorus (2.5-4.9) mg/dl Magnesium (1.8-2.4) mg/dl Total Bilirubin (0.2-1) mg/dl AST (15-37) U/L ALT (12-78) U/L Alkaline Phosphatase (45-117) U/L Troponin I (0-0.045) ng/ml Total Protein (6.4-8.2) gm/dl Albumin (3.4-5.0) gm/dl Globulin (2.5-4.0) gm/dl Albumin/Globulin Ratio (0.9-2) Beta-Hydroxybutyric Acd (0.2-2.81) mg/dl Urine Color Urine Appearance (Clear) Urine pH (4.5-7.5) Ur Specific [place] (1.000-1.030) Urine Protein (Negative) Urine Glucose (UA) (Negative) Urine Ketones (Negative) Urine Blood (Negative) Urine Nitrite (Negative) Urine Bilirubin (Negative) Urine Urobilinogen (Negative) Ur Leukocyte Esterase (Negative) Urine WBC (Auto) (0-5) /hpf Urine RBC (Auto) (0-4) /hpf U Hyaline Cast (Auto) (0-5) /lpf U Epithel Cells (Auto) (0-5) /lpf Urine Bacteria (Auto) (Negative) Urine Yeast 12/14/18 12/14/18 Range/Units 03:33 03:33 WBC (4.8-10.8) K/uL RBC (4.2-5.4) M/uL Hgb (12.0-16.0) g/dL Hct (37-47) % MCV (80-100) fL MCH (25-34) pg MCHC (32-36) g/dL RDW Std Deviation (36.4-46.3) fL RDW Coeff of [place] (11.5-14.5) % Plt Count (130-400) K/uL MPV (7.4-10.4) fL Immature Gran % (Auto) % Neut % (Auto) % Lymph % (Auto) % [place] % (Auto) % Eos % (Auto) % Baso % (Auto) % Immature Gran # (Auto) (0.00-0.02) K/uL Neut # (Auto) (1.4-6.5) K/uL Lymph # (Auto) (1.2-3.4) K/uL [place] # (Auto) (0.11-0.59) K/uL Eos # (Auto) (0-0.5) K/uL Baso # (Auto) (0-0.2) K/uL PT INR APTT PTT Ratio ABG pH (7.35-7.45) ABG pCO2 (35-46) mmHg ABG pO2 (80-95) mm/Hg ABG HCO3 (19-24) mmol/L ABG O2 Saturation (90-95) % ABG Base Excess (-9-1.8) mEq/L Jorge Test (Pos) VBG pH (7.36-7.41) VBG pCO2 (38-50) mmHg VBG pO2 mmHg VBG HCO3 mmol/L VBG O2 Saturation % VBG Base Excess mEq/L Barometric Pressure mm/Hg Oxygen Given Sodium 129 L (136-145) mmol/L Potassium 5.2 H (3.5-5.1) mmol/L Chloride 102 (98-107) mmol/L Carbon Dioxide 15 L (21-32) mmol/L Anion Gap 12.0 H (3-11) BUN 37 H (7-18) mg/dl Creatinine 1.88 H (0.6-1.2) mg/dl Est Cr Clr Drug Dosing 21.7 ml/min Est GFR ( Amer) 28.3 Est GFR (Non-Af Amer) 24.4 BUN/Creatinine Ratio 19.6 (10-20) Glucose 310 H* (70-99) mg/dl POC Glucose (70-99) Lactate 2.2 H* (0.4-2.0) mmol/L Calcium 7.9 L (8.5-10.1) mg/dl Phosphorus 6.2 H (2.5-4.9) mg/dl Magnesium 2.0 (1.8-2.4) mg/dl Total Bilirubin (0.2-1) mg/dl AST (15-37) U/L ALT (12-78) U/L Alkaline Phosphatase (45-117) U/L Troponin I (0-0.045) ng/ml Total Protein (6.4-8.2) gm/dl Albumin (3.4-5.0) gm/dl Globulin (2.5-4.0) gm/dl Albumin/Globulin Ratio (0.9-2) Beta-Hydroxybutyric Acd TNP (0.2-2.81) mg/dl Urine Color Urine Appearance (Clear) Urine pH (4.5-7.5) Ur Specific [place] (1.000-1.030) Urine Protein (Negative) Urine Glucose (UA) (Negative) Urine Ketones (Negative) Urine Blood (Negative) Urine Nitrite (Negative) Urine Bilirubin (Negative) Urine Urobilinogen (Negative) Ur Leukocyte Esterase (Negative) Urine WBC (Auto) (0-5) /hpf Urine RBC (Auto) (0-4) /hpf U Hyaline Cast (Auto) (0-5) /lpf U Epithel Cells (Auto) (0-5) /lpf Urine Bacteria (Auto) (Negative) Urine Yeast Imaging Data Attestation: I personally reviewed and interpreted this imaging study as follows: My Impression: CHEST X-RAY: Pulmonary edema right greater than left. ECG Data Attestation: I personally reviewed and interpreted this ECG as follows: Indication: SOB/dyspnea Rate (beats per minute): 116 Rhythm: sinus tachycardia Findings: + T-wave inversion (deep T wave inversion in V5, V6, and lead 1 concerning for ischemia); no PAC and no PVC Comparison ECG Date: from (02/04/2019) Change: the following changes noted (Compared to prior, T wave inversions are deeper.) Blood Pressure Blood Pressure Findings: Elevated blood pressure Blood Pressure Disposition: further management by hospitalist ERIC Nicole The patient is an 83 year old female who presents to the emergency department with complaints of constant SOB beginning tonight. The patient was just discharged from the hospital after having an DE. She has no previous history of pulmonary edema. She presented in extreme respiratory failure with pink frothy sputum and pulmonary edema. IV access was difficult to obtain and therefore an IO was placed. The patient received RSI meds through the IO to facilitate endotracheal intubation. The patient's airway was secured and her vitals began to normalize. Patient had ABG which showed significant mixed acidosis. Her ventilator rate was increased as she did have mildly elevated CO2. Patient was significantly hyperglycemic. I discussed the case with the ICU KAMINI and he will start the patient on an IV insulin drip and will use propofol for sedation if needed. The patient is Hemodynamically stable at this time. Impression & Plan Respiratory failure, Hyperglycemia, Pulmonary edema Critical Care Time Critical Care Time: Yes Total Critical Care Time: 90 I have personally spent 95 minutes of critical care time in the direct management of this patient. This includes bedside care, interpretation of diagnostic studies, and testing, discussion with consultants, patient, and family members, and other required patient management activities. This 95 minutes is in excess of all separately billable procedures. Discharge Plan Visit Data *Final* Discharge Date/Time: 12/14/18 04:59 Chief Complaint: Shortness of Breath/Dyspnea ED Provider: Leticia Carr Discharge Problem: Respiratory failure, Hyperglycemia, Pulmonary edema Patient Disposition: Admitted As Inpatient Discharge Instructions Interventions: ED Discharge Assessment Last Done: 12/14/18 04:59 Discharge Problem: Respiratory failure Qualifiers: Chronicity: acute Respiratory failure complication: hypoxia and hypercapnia Qualified Code(s): J96.01 - Acute respiratory failure with hypoxia Pulmonary edema Qualifiers: Chronicity: acute Qualified Code(s): J81.0 - Acute pulmonary edema The scribe's documentation has been prepared under my direction and personally reviewed by me in its entirety. I confirm that the note above accurately reflects all work, treatment, procedures, and medical decision making performed by me.
[2018-12-14] MEDS: INSULIN ASPART 100 UNITS/ML 3 ML PEN SC SCH ×5 (07:56→20:21)
[2018-12-14] MEDS ORDERED: VANCOMYCIN CONSULT ACTIVE PRN ×3 (08:22→15:16)
[2018-12-14] MEDS ORDERED: Heparin IV Standard *NO* Bolus IV SCH (08:30)
[2018-12-14] MEDS: HEPARIN SODIUM/DEXTROSE 25,000 UNITS/500 ML BAG IV SCH (08:53)
--- NOTE | 2018-12-14 08:57 | Cardiology Consultation ---
Date of Consultation December 14, 2018 Assessment & Plan (1) Respiratory failure: 2. Acute systolic heart failure 3. NSTEMI/critical multivessel coronary artery disease 3. Ischemic cardiomyopathy with apical akinesis --EF40-45% 4. 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 Cerebrovascular disease with ? left distal vertebral occlusion 6. RT heel ulcer/abscess 7. LE PAD - RT RAJAT 0.47, LT 0.81 (moderate distal SFA/popliteal stenosis, likely RT GUSTABO occlusion with reconstitution). 8. Acute on chronic renal insufficiency 9. Rheumatoid arthritis 10. Insulin-dependent diabetes 11. Hyponatremia Patient critically ill with complex medical issues. [place] pulmonary edema on chest x-ray in the setting of apparent ACS. Patient with known heavily calcified, high risk coronary artery disease. Not a surgical candidate with comorbidities. Percutaneous coronary intervention would likely require atherectomy and overall risk is prohibitive with recent stroke following diagnostic catheterization, and chronic kidney disease. In addition EKG suggestive of LAD disease which was previously shown to be diminutive. At this point would recommend continued medical management of coronary artery disease and heart failure although overall prognosis seems poor and would recommend palliative involvement. Trend troponins, repeat echocardiogram Agree with heparin infusion Continue clopidogrel, start aspirin. Recommend additional diuresis with either bolus or loop diuretic infusion If urine output remains poor may need trial of inotropes We will continue to follow. History of Present Illness Attending Physician: Gino Colvin DO History of Present Illness Mrs. Jay is 83-year-old woman known to me from recent hospitalization for NSTEMI who is readmitted overnight in the setting of shortness of breath, chest pain and respiratory failure. Patient intubated, sedated this morning. Per documentation was at [facility] when developed first of breath and chest pain after eating dinner. Hypoxia did not respond to CPAP. Chest x-ray showed extensive pulmonary edema and was intubated in the ED for respiratory failure. BNP greater than 35,000, initial troponin 0 0.19, up to 68 this morning. EKG this morning showed sinus rhythm with borderline ST elevations in V1 and V2 and deep T wave inversions across the precordium. temporarily on a low-dose Bumex drip with minimal urine output. Hospitalized from 12/02 to 12/09 in the setting of NSTEMI. Initial troponin 14 and downtrending. Cardiac catheterization revealed severe, complex multivessel coronary artery disease including ostial left main, ostial circumflex and critical ostial RCA disease. LAD with a small vessel with a possibly acute 70% mid segment lesion. Patient thought not to be a surgical candidate due to comorbidities and lack of MEMBRENO target. CAD medically managed. Echo showed moderate LV dysfunction with apical akinesis. With diminutive LAD wall motion normality seen by proportion to coronary artery disease and there was concern that LV dysfunction potentially stress-induced cardiomyopathy. Hospital course complicated by acute on chronic renal insufficiency and bilateral occipital strokes occurring 2 days after catheterization. Started on anticoagulation for potential apical thrombus embolism. She is also been dealing with a right heel ulceration/abscess for which surgical debridement has been postponed. Allergies Allergy/AdvReac Type Severity Reaction Status Date / Time amitriptyline Allergy Intermediate BLURRED Verified 12/14/18 00:19 DOUBLE VISION gabapentin Allergy Intermediate SHAKES,VISION Verified 12/14/18 00:19 CHANGES latex Allergy Intermediate SKIN GETS Verified 12/14/18 00:19 RAW-PT HAS NO RECOLLECTION meloxicam Allergy Intermediate DIARRHEA Verified 12/14/18 00:19 metformin Allergy Intermediate HOT FLASHES Verified 12/14/18 00:19 pregabalin Allergy Intermediate DIZZINESS, Verified 12/14/18 00:19 SLEEPY acetaminophen Allergy Mild SWEATING Verified 12/14/18 00:19 pioglitazone Allergy Mild SORE Verified 12/14/18 00:19 THROAT,EAts excessively Cipro Allergy Unknown itshiness,red Verified 06/25/16 17:42 streak ciprofloxacin Allergy Unknown itchiness,red Verified 12/14/18 00:19 streak guaifenesin Allergy Unknown UNKNOWN Verified 12/14/18 00:19 metronidazole Allergy Unknown UNKNOWN Verified 12/14/18 00:19 Penicillins Allergy Unknown INJECTION Verified 12/14/18 00:19 UNKNOWN rofecoxib Allergy Unknown UNKNOWN Verified 12/14/18 00:19 rosuvastatin Allergy Unknown UNKNOWN Verified 12/14/18 00:19 simvastatin Allergy Unknown UNKNOWN Verified 12/14/18 00:19 Sulfa (Sulfonamide Allergy Unknown HIVES Verified 12/14/18 00:19 Antibiotics) tramadol Allergy Unknown SWEATING Verified 12/14/18 00:19 Tricyclic Compounds Allergy Unknown ON WINDY Verified 12/14/18 00:19 WALKER LIST Home Medications Home Medications Medication Instructions Recorded Confirmed Type clopidogrel 75 mg tablet 75 mg PO QPM 06/28/18 12/14/18 History topiramate 25 mg tablet 25 mg PO QAM #30 tab 11/05/18 12/14/18 History lisinopril 10 mg PO QAM 12/01/18 12/14/18 History pantoprazole [Protonix] 40 mg PO DAILYBB 12/01/18 12/14/18 History furosemide 20 mg PO QAM #0 tab 12/10/18 12/14/18 Rx polyethylene glycol 3350 [Miralax] 17 g PO BID #60 ea 12/10/18 12/14/18 Rx isosorbide mononitrate 30 mg PO QAM #30 tab 12/21/18 12/14/18 Rx metoprolol succinate [Toprol XL] 100 mg PO DAILY #30 tab 12/21/18 Rx nitroglycerin [Nitrostat] 0.4 mg SUBLINGUAL Q5M PRN #1 btl 12/21/18 Rx Patient History Medical History Chronic kidney disease, stage 3 (Chronic) HTN (hypertension) (Chronic) Myocardial infarction Diabetes mellitus with diabetic polyneuropathy (Acute) Ulcer of right heel (Acute) Anxiety associated with depression (Chronic) Benign recurrent vertigo (Chronic) Bilateral foot-drop (Chronic) Blood clotting disorder (Chronic) Chronic GERD (Chronic) Diabetes mellitus type 2 with complications, uncontrolled (Chronic) Gastritis (Chronic) H/O diastolic dysfunction (Chronic) H/O: CVA (cerebrovascular accident) (Chronic) Hyperlipidemia (Chronic) Hypokalemia (Chronic) Memory loss (Chronic) Nephropathy (Chronic) Neurologic gait dysfunction (Chronic) Osteoarthritis (Chronic) Polyarthritis (Chronic) Resting tremor (Chronic) Right lumbar radiculopathy (Chronic) Sleep apnea (Chronic) Stenosis of right carotid artery (Chronic) Urinary frequency (Chronic) Vitamin D deficiency (Chronic) Weight disorder (Chronic) Cataract (Resolved) Cholecystectomy planned (Resolved) H/O: hysterectomy (Resolved) Surgical History Hx of tonsillectomy (Resolved) S/P cholecystectomy S/P hysterectomy S/P tonsillectomy Family History Mother , in her 80s of a cerebral aneurysm Heart disease Stroke Tremor Father , in his 80s of heart disease Heart disease Other No pertinent family history Social History Preferred Language: Occitan Communication Ability: Unable Visual Impairment: No Limitations Hearing Ability: Hard of Hearing It Security Administrator Required: No Beliefs That Will Affect Care: None marital status: Current Living Situation: Rehab current occupational status: retired other: 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 Extremities cool bilaterally Abdomen: Soft Extremities: No edema. Heel ulceration with dressings in place Psych: Intubated, sedated Results & Data Vital Signs (Past 12 Hours) Vital Signs Temp Pulse Pulse Resp BP BP Pulse Ox 12/14/18 07:15 73 115/62 100 12/14/18 07:00 76 100/59 L 100 12/14/18 06:45 74 98/54 L 99 12/14/18 06:40 75 89/53 L 99 12/14/18 06:33 75 89/49 L 97 12/14/18 06:30 73 77/50 L 98 12/14/18 06:22 73 22 92 12/14/18 05:45 97.5 F L 78 22 143/78 H 95 12/14/18 05:26 82 143/78 H 99 12/14/18 04:45 81 110/69 94 12/14/18 04:39 85 107/56 L 94 12/14/18 04:32 78 93 12/14/18 04:30 80 93 12/14/18 04:15 88 94 12/14/18 04:01 95 H 127/76 96 12/14/18 04:00 90 96 12/14/18 03:45 97 H 96 12/14/18 03:30 103 H 157/102 H 95 12/14/18 03:15 98 H 94 12/14/18 03:00 103 H 167/104 H 93 12/14/18 02:45 107 H 93 12/14/18 02:37 108 H 22 93 12/14/18 02:30 109 H 92 12/14/18 02:15 114 H 92 12/14/18 02:00 111 H 169/100 H 92 12/14/18 01:45 114 H 169/96 H 92 12/14/18 01:33 96 12/14/18 01:30 114 H 176/100 H 92 12/14/18 01:15 115 H 176/105 H 92 12/14/18 01:00 114 H 167/96 H 92 12/14/18 00:58 113 H 16 95 12/14/18 00:50 111 H 168/89 H 94 12/14/18 00:45 111 H 91 12/14/18 00:40 112 H 159/86 H 94 12/14/18 00:32 111 H 97 12/14/18 00:30 111 H 154/81 H 98 12/14/18 00:29 112 H 127/96 99 12/14/18 00:20 118 H 127/96 99 12/14/18 00:16 92 12/14/18 00:15 96 12/14/18 00:03 119 H 23 12/14/18 00:00 97.3 F L 118 H 30 H 130/77 87 L PG Care Time/CCT Total # of Minutes Spent Total Time Spent with Patient: Total time spent is greater than 50% in coordination of care (as documented) at patient's floor/unit and/or counseling patient: (1) Respiratory failure Chronicity: acute Respiratory failure complication: hypoxia and hypercapnia Qualified Code(s): J96.01 - Acute respiratory failure with hypoxia; J96.02 - Acute respiratory failure with hypercapnia
[2018-12-14] MEDS ORDERED: DOCUSATE SODIUM 100 MG CAP PO SCH (09:00)
[2018-12-14] MEDS ORDERED: GABAPENTIN 100 MG CAP PO SCH (09:00)
[2018-12-14] MEDS ORDERED: LINEZOLID 600 MG TAB PO SCH (09:00)
[2018-12-14] MEDS ORDERED: APIXABAN 2.5 MG TAB PO SCH (09:00)
[2018-12-14] MEDS ORDERED: TOPIRAMATE 25 MG TAB PO SCH (09:00)
[2018-12-14] MEDS ORDERED: ISOSORBIDE MONO EXTENDED REL 30 MG TABCR PO SCH (09:00)
[2018-12-14] MEDS ORDERED: METOPROLOL SUCC 50MG EXT REL TAB PO SCH (09:00)
[2018-12-14] MEDS ORDERED: VECURONIUM BROMIDE 10 MG VIAL IV ONE (09:33)
[2018-12-14] MEDS ORDERED: SUCCINYLCHOLINE CHLORIDE 20 MG/ML 10 ML VIAL IV ONE (09:33)
[2018-12-14] MEDS ORDERED: MIDAZOLAM HCL 5 MG/ML 1 ML VIAL IV ONE (09:33)
[2018-12-14] MEDS ORDERED: ETOMIDATE 2 MG/ML 20 ML VIAL IV ONE (09:33)
[2018-12-14] MEDS ORDERED: VANCOMYCIN HCL 1,750 MG in SODIUM CHLORIDE 0.9% 500 ML IV ONE (09:41)
[2018-12-14] MEDS: CEFEPIME 1,000 MG in SYRINGE 0 ML IV SCH (10:30)
[2018-12-14] MEDS: FOLIC ACID 1 MG TAB PO SCH (11:55)
[2018-12-14] MEDS ORDERED: IMPACT LIQD 1.0 CAL 1,000 ML BAG OG SCH (12:00)
--- NOTE | 2018-12-14 12:04 | Critical Care Consultation ---
Date of Consultation December 14, 2018 Assessment & Plan (1) Admitted to intensive care unit: Reason Critically Ill: 83-year-old female here for acute pulmonary edema with hypoxemia necessitating intubation. 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 The patient is not thought to be a surgical candidate due to multiple comorbidities. CAD is medically managed. Echo showed moderate LV dysfunction with apical vickie esis and there is a concern for stress-induced cardiomyopathy. Status post cardiac catheterization she experienced bilateral occipital strokes. She has been on anticoagulation for potential thrombus -Cardiology consulted following recommendations -Medical management for coronary artery disease and heart failure -Recommend palliative consult -Heparin infusion -Clopidogrel, start aspirin -Additional diuresis with either bolus or loop diuretics -If you UOP does not improve may need a trial of inotropes -On atorvastatin 40 mg Respiratory: Acute respiratory failure with hypoxemia secondary to pulmonary edema Patient appears to have had an acute exacerbation of her chronic systolic heart failure. She was unable to maintain oxygenation on presentation and was subsequently intubated. She remains sedated sedated and intubated. -Overnight she received a Bumex drip, appears to have proved from a fluid overload standpoint -Monitor I's and O's Pneumonia Patient's chest x-ray is consistent with pneumonia. She has an elevated procalcitonin,Elevated white count, lactate is improving -Blood and urine and sputum cultures pending -History of coag negative staph and E faecalis on her right foot -Patient placed on empiric cefepime plan to narrow pending cultures -Received a dose of Vanco in the ED GI: Consult dietary for enteral nutrition Famotidine IV for GI prophylaxis RENAL/LYTES: Hyponatremia: May be secondary to fluid resuscitation versus diuretic therapy -Replace lytes as needed. LEEANN Baseline creatinine appears to be 1.4, currently 1.88 -Monitor in the setting of aggressive diuretic therapy : - No concerns at this time. ENDO: History of diabetes type 2 -ICU hypoglycemia protocol in place -Glycemic consult placed HEME: - Stable H&H. -Will monitor for any drops in the setting of Heparin gtt ID: Pneumonia See above Pressure ulcers Numerous potential sites for infections, monitor for signs and symptoms of valiant man of cellulitis and/or infection. -Monitor fever curve. INTEGUMENTARY: -No acute concerns at present LINES/IV ACCESS: -PIVs intact. DVT PROPHYLAXIS: -Heparin gtt. Dispo: ICU Thank you for allowing us to be part of this patient's care. Please refer to Dr. Gonsales's documentation for any further recommendations. (2) Pulmonary edema: (3) Respiratory failure: (4) Hyperkalemia: (5) Stress-induced cardiomyopathy: (6) Multi-vessel coronary artery stenosis: (7) ERNST (obstructive sleep apnea): (8) Neuropathic ulcer of right foot: (9) Chronic cerebral ischemia: (10) Diabetic polyneuropathy: (11) DVT prophylaxis: (12) NSTEMI (non-ST elevated myocardial infarction): (13) Acute kidney injury: (14) Anemia: (15) Chronic kidney disease, stage 3: (16) Diabetic foot ulcer associated with type 2 diabetes mellitus: (17) Stage II pressure ulcer of buttock: (18) Stage II pressure ulcer of right heel: (19) HTN (hypertension): (20) Multifocal pneumonia: Supervising Physician Co-Signing Physician Notes Patient seen and examined with Dr. Martinez resident physician. 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 She has evidence of multifocal infiltrates on her chest x-ray which likely represents some degree of pulmonary edema and bilateral pneumonia. She does have a severely elevated procalcitonin of nearly 27. Her BNP is also elevated. She was initially started on diuretics, however, I have stopped this as her clinical exam appears to be fairly dry. Concerned that she is becoming more septic. She does appear to be more acidemic based on her serum bicarb. Her urine output is decreasing. May be related to decreased cardiac perfusion and thus I will order an echo for today. She has a significant troponin leak and she is also on a heparin drip at present. Cardiology was consulted and at this time they recommend medical management given her complex coronary artery disease. Hold her apixaban as she is on heparin currently. Continue broad-spectrum antibiotics. Check repeat procalcitonin in 2 days. Check a sputum culture. MRSA screen is negative thus we can hold vancomycin. Urinalysis also consistent with a possible UTI. We will start tube feeds today. She has a poor prognosis overall. We have consulted palliative care and updated the family. History of Present Illness Attending Physician: Gino Colvin DO History of Present Illness History limited secondary to intubated status See below for admission HPI 83-year-old female with past medical history of recent stress-induced cardiomyopathy, CAD, recent DE/non-STEMI, CVA, diabetes mellitus with diabetic foot ulcer likely right foot abscess that grew Enterococcus faecalis and coagulase-negative staph last admission, anemia, chronic kidney disease stage III, peripheral arterial disease, stage II pressure ulcer present on admission, essential hypertension, dyslipidemia, obstructive sleep apnea, diabetic polyneuropathy, 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 Patient was recently discharged 3 days ago to rehab and was doing well until developed acute onset shortness of breath brought to ED and was found to have acute pulmonary edema with hypoxemia, required immediate intubation Update I was called to the patient's room at approximately 12 PM to update the family on the patient. I explained to them that the patient had multiple comorbidities, was currently having a myocardial infarction, has a pneumonia, and had significant pleural edema on admission. I explained that the prognosis was likely poor and that her discussion regarding the goals of care was prudent. To this extent we have consulted the palliative care team the family was on board with this. I think from their perspective they would like to get the patient stable enough to bring her home to allow her to pass naturally. I readdressed CODE STATUS with the patient's family, and they confirmed the patient is to remain full code. Allergies Allergy/AdvReac Type Severity Reaction Status Date / Time amitriptyline Allergy Intermediate BLURRED Verified 12/14/18 00:19 DOUBLE VISION gabapentin Allergy Intermediate SHAKES,VISION Verified 12/14/18 00:19 CHANGES latex Allergy Intermediate SKIN GETS Verified 12/14/18 00:19 RAW-PT HAS NO RECOLLECTION meloxicam Allergy Intermediate DIARRHEA Verified 12/14/18 00:19 metformin Allergy Intermediate HOT FLASHES Verified 12/14/18 00:19 pregabalin Allergy Intermediate DIZZINESS, Verified 12/14/18 00:19 SLEEPY acetaminophen Allergy Mild SWEATING Verified 12/14/18 00:19 pioglitazone Allergy Mild SORE Verified 12/14/18 00:19 THROAT,EAts excessively Cipro Allergy Unknown itshiness,red Verified 06/25/16 17:42 streak ciprofloxacin Allergy Unknown itchiness,red Verified 12/14/18 00:19 streak guaifenesin Allergy Unknown UNKNOWN Verified 12/14/18 00:19 metronidazole Allergy Unknown UNKNOWN Verified 12/14/18 00:19 Penicillins Allergy Unknown INJECTION Verified 12/14/18 00:19 UNKNOWN rofecoxib Allergy Unknown UNKNOWN Verified 12/14/18 00:19 rosuvastatin Allergy Unknown UNKNOWN Verified 12/14/18 00:19 simvastatin Allergy Unknown UNKNOWN Verified 12/14/18 00:19 Sulfa (Sulfonamide Allergy Unknown HIVES Verified 12/14/18 00:19 Antibiotics) tramadol Allergy Unknown SWEATING Verified 12/14/18 00:19 Tricyclic Compounds Allergy Unknown ON WINDY Verified 12/14/18 00:19 [facility] Home Medications Home Medications Medication Instructions Recorded Confirmed Type atorvastatin 40 mg tablet 40 mg PO HS tab 06/28/18 12/14/18 History clopidogrel 75 mg tablet 75 mg PO QPM 06/28/18 12/14/18 History insulin glargine (U- 100) 100 12 units SQ HS ml 06/28/18 12/14/18 History unit/mL subcutaneous solution topiramate 25 mg tablet 25 mg PO QAM #30 tab 11/05/18 12/14/18 History cholecalciferol (vitamin D3) 1,000 unit PO QDL 12/01/18 12/14/18 History [Vitamin D3] gabapentin 100 mg PO QAM 12/01/18 12/14/18 History lisinopril 10 mg PO QAM 12/01/18 12/14/18 History pantoprazole [Protonix] 40 mg PO DAILYBB 12/01/18 12/14/18 History apixaban [Eliquis] 2.5 mg PO BID #60 tab 12/10/18 12/14/18 Rx docusate sodium 100 mg PO BID #60 cap 12/10/18 12/14/18 Rx furosemide 20 mg PO QAM #0 tab 12/10/18 12/14/18 Rx isosorbide mononitrate 30 mg PO QAM #30 tab 12/10/18 12/14/18 Rx polyethylene glycol 3350 [Miralax] 17 g PO BID #60 ea 12/10/18 12/14/18 Rx acetaminophen [Tylenol Extra 1,000 mg PO Q6H PRN 12/14/18 12/14/18 History Strength] folic acid 1 mg PO QDL 12/14/18 12/14/18 History linezolid 600 mg PO AMHS 12/14/18 12/14/18 History metoprolol succinate 200 mg PO QAM 12/14/18 12/14/18 History Patient History Medical History Chronic kidney disease, stage 3 (Chronic) HTN (hypertension) (Chronic) Myocardial infarction Diabetes mellitus with diabetic polyneuropathy (Acute) Ulcer of right heel (Acute) Anxiety associated with depression (Chronic) Benign recurrent vertigo (Chronic) Bilateral foot-drop (Chronic) Blood clotting disorder (Chronic) Chronic GERD (Chronic) Diabetes mellitus type 2 with complications, uncontrolled (Chronic) Gastritis (Chronic) H/O diastolic dysfunction (Chronic) H/O: CVA (cerebrovascular accident) (Chronic) Hyperlipidemia (Chronic) Hypokalemia (Chronic) Memory loss (Chronic) Nephropathy (Chronic) Neurologic gait dysfunction (Chronic) Osteoarthritis (Chronic) Polyarthritis (Chronic) Resting tremor (Chronic) Right lumbar radiculopathy (Chronic) Sleep apnea (Chronic) Stenosis of right carotid artery (Chronic) Urinary frequency (Chronic) Vitamin D deficiency (Chronic) Weight disorder (Chronic) Cataract (Resolved) Cholecystectomy planned (Resolved) H/O: hysterectomy (Resolved) Surgical History Hx of tonsillectomy (Resolved) S/P cholecystectomy S/P hysterectomy S/P tonsillectomy Social History Preferred Language: Icelandic Communication Ability: Unable Communication Ability Comment: INTUBATED. 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 [employer] Feels Safe at Home: Yes Smoking Status: Never smoker Hx Alcohol Use: No Hx Substance Use: No Results & Data Vital Signs (Past 12 Hours) Vital Signs Temp Pulse Pulse Resp BP BP Pulse Ox 12/14/18 08:00 78 28 H 99 12/14/18 07:15 73 115/62 100 12/14/18 07:00 76 100/59 L 100 12/14/18 06:45 74 98/54 L 99 12/14/18 06:40 75 89/53 L 99 12/14/18 06:33 75 89/49 L 97 12/14/18 06:30 73 77/50 L 98 12/14/18 06:22 73 22 92 12/14/18 05:45 36.4 C L 78 22 143/78 H 95 12/14/18 05:26 82 143/78 H 99 12/14/18 04:45 81 110/69 94 12/14/18 04:39 85 107/56 L 94 12/14/18 04:32 78 93 12/14/18 04:30 80 93 12/14/18 04:15 88 94 12/14/18 04:01 95 H 127/76 96 12/14/18 04:00 90 96 12/14/18 03:45 97 H 96 12/14/18 03:30 103 H 157/102 H 95 12/14/18 03:15 98 H 94 12/14/18 03:00 103 H 167/104 H 93 12/14/18 02:45 107 H 93 12/14/18 02:37 108 H 22 93 12/14/18 02:30 109 H 92 12/14/18 02:15 114 H 92 12/14/18 02:00 111 H 169/100 H 92 12/14/18 01:45 114 H 169/96 H 92 12/14/18 01:33 96 12/14/18 01:30 114 H 176/100 H 92 12/14/18 01:15 115 H 176/105 H 92 12/14/18 01:00 114 H 167/96 H 92 12/14/18 00:58 113 H 16 95 12/14/18 00:50 111 H 168/89 H 94 12/14/18 00:45 111 H 91 12/14/18 00:40 112 H 159/86 H 94 12/14/18 00:32 111 H 97 12/14/18 00:30 111 H 154/81 H 98 12/14/18 00:29 112 H 127/96 99 12/14/18 00:20 118 H 127/96 99 12/14/18 00:16 92 12/14/18 00:15 96 12/14/18 00:03 119 H 23 12/14/18 00:00 36.3 C L 118 H 30 H 130/77 87 L PG Care Time/CCT Total # of Minutes Spent Total Time Spent: 50 Total Time Spent with Patient: Total time spent is greater than 50% in coordination of care (as documented) at patient's floor/unit and/or counseling patient: 50 Critical Care Time: Yes Total Critical Care Time: 50 Resident Activity Tracking Resident Involvement: Resident Care Provided Care Provided: Adult Hospital Medicine (ICU) (1) Stage II pressure ulcer of buttock Laterality: left Qualified Code(s): L89.322 - Pressure ulcer of left buttock, stage 2 (2) Diabetic foot ulcer associated with type 2 diabetes mellitus Diabetic foot ulcer location: heel Laterality: right Non-pressure ulcer stage: with fat layer exposed Qualified Code(s): E11.621 - Type 2 diabetes mellitus with foot ulcer; L97.412 - Non-pressure chronic ulcer of right heel and midfoot with fat layer exposed (3) Anemia Anemia type: unspecified type Qualified Code(s): D64.9 - Anemia, unspecified (4) Pulmonary edema Chronicity: acute Qualified Code(s): J81.0 - Acute pulmonary edema (5) Respiratory failure Chronicity: acute Respiratory failure complication: hypoxia and hypercapnia Qualified Code(s): J96.01 - Acute respiratory failure with hypoxia; J96.02 - Acute respiratory failure with hypercapnia
[2018-12-14 12:16] LABS: iSTAT Allen Test Pass; iSTAT Art Bld Gas pCO2 Correct 27 mmHg (35-46); iSTAT Art Bld Gas pH Corrected 7.327 (7.35-7.45); iSTAT Arterial Blood Gas HCO3 14 meg/L (19-24); iSTAT Arterial Blood Gas pCO2 27 mmHg (35-46); iSTAT Arterial Blood Gas pH 7.33 (7.35-7.45); iSTAT Arterial Blood Gas pO2 57 mmHg (80-95); iSTAT Arterial Blood Gas pO2 C 57; iSTAT Carbon Dioxide 15 mEq/l (24-31); iSTAT Site L Radial
[2018-12-14] MEDS ORDERED: PHARMACY GLYCEMIC MGMT CONSULT STA (12:21)
--- NOTE | 2018-12-14 13:51 | Pharmacy Report ---
Glycemic Control Consultation - Date of Service December 14, 2018 - Scope Scope: Glycemic Pharmacist consulted by Álvaro AHUJA on 12/14 for glycemic control and to write orders per [facility] inpatient glycemic control protocol - Objective Weight: 72.7 kg Accuchecks BSG (last 24hrs): 12/14/18 12/14/18 12/14/18 00:27 03:10 03:33 Glucose 347 H* 310 H* POC Glucose 315 H* 12/14/18 12/14/18 12/14/18 05:42 06:33 07:35 Glucose POC Glucose 214 H 227 H 197 H 12/14/18 12/14/18 12/14/18 08:40 10:03 11:17 Glucose POC Glucose 123 H 102 H 91 12/14/18 13:00 Glucose POC Glucose 92 Laboratory Data (last 24hrs): 12/14/18 12/14/18 12/14/18 00:27 01:58 03:33 Potassium 5.1 5.2 H Carbon Dioxide 16 L 15 L Anion Gap 13.0 H 12.0 H Creatinine 1.86 H 1.88 H Est Cr Clr Drug Dosing 21.9 21.7 Beta-Hydroxybutyric Acd TNP 12/14/18 06:59 Potassium Carbon Dioxide Anion Gap Creatinine Est Cr Clr Drug Dosing Beta-Hydroxybutyric Acd 0.77 - Recent Pertinent Medications Outpatient Anti-diabetic Regimen: * Lantus 12 units HS * A1c = 6.4 % 12/02/18 The patient is currently receiving: * Basal insulin: Insulin infusion @ 1.3 units/hr Risk Factors for Insulin Resistance: * Steroids: * Infection: cefepime,zyvox * Mechanical Ventilation: 12/14 - Assessment & Plan Assessment & Plan: ASSESSMENT: * 83 year old female with extensive medical history including recent admission for NSTEMI, CVA, admitted for respiratory failure. Patient was intubated in emergency department. Patient has CKD stage III with acute injury baseline SCr ~1.4. * Patient was hyperglycemic on admission with BSGs in the 300s. Insulin infusion was started per ICU protocol * Patient remains intubated in the ICU, insulin infusion has been titrating down, currently at 1.3 units an hour, per documentation patient did receive 12 units of lantus last evening, BSG now 91. Given patient has received evening dose of lantus, suspect hyperglycemia was due to stress response will hold insulin infusion at this time without additional lantus, will continue 12 units HS * Patient was well controlled on lantus 12 units HS and novolog carb ratio 7, correction factor 25 during last stay * Tube feeds are being initiated, will advance every 8 hours, did start novolog parameter slightly more conservative with a carb ratio of 10 due to LEEANN, will tighten if BSGS begin to elevate with tube feeds. PLAN FOR INPATIENT GLYCEMIC CONTROL: * Basal insulin * Lantus 12 units SQ HS * Bolus insulin * NovoLog per scale q4H * Goal Range: Low 110 mg/dL - High 140 mg/dL * Correction Factor: 25 mg/dL/unit * Nutritional / Prandial insulin per carb ratio of 1 unit per 10 grams CHO consumed * Please note that the plan above was derived based on current level of insulin resistance and hospital stress. These recommendations are appropriate for inpatient admission only. Plan of care upon discharge will need to be reassessed to avoid potential outpatient hypo/hyperglycemia. Thank you.
--- NOTE | 2018-12-14 13:53 | Pharmacy Report ---
Glycemic Control Consultation - Date of Service December 14, 2018 - Scope Scope: Glycemic Pharmacist consulted by Álvaro [facility] on [date] for glycemic control and to write orders per [facility] inpatient glycemic control protocol - Objective Weight: 72.7 kg Accuchecks BSG (last 24hrs): 12/14/18 12/14/18 12/14/18 00:27 03:10 03:33 Glucose 347 H* 310 H* POC Glucose 315 H* 12/14/18 12/14/18 12/14/18 05:42 06:33 07:35 Glucose POC Glucose 214 H 227 H 197 H 12/14/18 12/14/18 12/14/18 08:40 10:03 11:17 Glucose POC Glucose 123 H 102 H 91 12/14/18 13:00 Glucose POC Glucose 92 Laboratory Data (last 24hrs): 12/14/18 12/14/18 12/14/18 00:27 01:58 03:33 Potassium 5.1 5.2 H Carbon Dioxide 16 L 15 L Anion Gap 13.0 H 12.0 H Creatinine 1.86 H 1.88 H Est Cr Clr Drug Dosing 21.9 21.7 Beta-Hydroxybutyric Acd TNP 12/14/18 06:59 Potassium Carbon Dioxide Anion Gap Creatinine Est Cr Clr Drug Dosing Beta-Hydroxybutyric Acd 0.77 - Recent Pertinent Medications Outpatient Anti-diabetic Regimen: * [] * A1c = [] % [date] The patient is currently receiving: * Basal insulin: Lantus [] units every [] hours * Correctional Insulin: Novolog Correction per scale ACHS Goal Range: Low [] mg/dL - High [] mg/dL Correction Factor: [] mg/dL/unit * Prandial insulin: Per carb ratio of 1 unit per [] grams CHO consumed * Oral Agents: Risk Factors for Insulin Resistance: * Steroids: * Infection: * Pressors: * IVF: * Recent Surgery * Diet: * Mechanical Ventilation: - Assessment & Plan Assessment & Plan: ASSESSMENT: * PLAN FOR INPATIENT GLYCEMIC CONTROL: * Starting IV insulin infusion per [] (moderate/severe) stress protocol * Goal Range [] - [] mg/dl * In the critical care setting, continuous IV insulin infusion has been shown to be the best method for achieving glycemic targets. * Holding outpatient oral diabetes medications * Basal insulin * Lantus [] units SQ BID * Bolus insulin * NovoLog per scale ACHS or Q6hrs while NPO * Goal Range: Low [] mg/dL - High [] mg/dL * Correction Factor: [] mg/dL/unit * Nutritional / Prandial insulin per carb ratio of 1 unit per [] grams CHO consumed OR PLAN FOR INPATIENT GLYCEMIC CONTROL: * Continuing / Increasing / decreasing Lantus/NPH to [] units SQ BID * Continuing / changing correction factor to [] mg/dl/unit * Continuing / changing carb ratio to 1 unit per [] grams CHO consumed * Continuing / changing goal range to Low [] mg/dL - High [] mg/dL * Please note that the plan above was derived based on current level of insulin resistance and hospital stress. These recommendations are appropriate for inpatient admission only. Plan of care upon discharge will need to be reassessed to avoid potential outpatient hypo/hyperglycemia. Thank you.
[2018-12-14] MEDS ORDERED: fentaNYL citrate 100 MCG/2 ML VIAL IV PRN (14:32)
[2018-12-14 15:05] LABS: BUN Creatinine Ratio 20.1 (10-20); Calcium 8.7 mg/dl (8.5-10.1); Creatinine Clr Calc Pharmacy 19.6 ml/min; Est GFR (African American) 25.2; Est GFR (Non-African American) 21.8; Potassium 5.5 mmol/L (3.5-5.1)
[2018-12-14] MEDS ORDERED: VANCOMYCIN HCL 1,500 MG in SODIUM CHLORIDE 0.9% 500 ML IV ONE (15:30)
--- NOTE | 2018-12-14 15:30 | Pharmacy Report ---
Pharmacy Abx Initial Consult - Date of Service December 14, 2018 - Pharmacy Dosing Scope Date of Consult: 12/14 Consultation requested by: Dr. Gonsales Pharmacy is consulted to initiate vancomycin IV/PO dosing therapy, order appropriate labs and adjust drug dose/frequency. - Subjective The patient is a 83 year old F admitted on 12/14/18 04:37. - Objective Height: 5 ft 2 in Weight: 72.7 kg Vital Signs (Past 12hrs): Vital Signs Temp Pulse Pulse Resp BP BP Pulse Ox 12/14/18 11:50 77 26 H 98 12/14/18 08:00 78 28 H 99 12/14/18 07:15 73 115/62 100 12/14/18 07:00 76 100/59 L 100 12/14/18 06:45 74 98/54 L 99 12/14/18 06:40 75 89/53 L 99 12/14/18 06:33 75 89/49 L 97 12/14/18 06:30 73 77/50 L 98 12/14/18 06:22 73 22 92 12/14/18 05:45 36.4 C L 78 22 143/78 H 95 12/14/18 05:26 82 143/78 H 99 12/14/18 04:45 81 110/69 94 12/14/18 04:39 85 107/56 L 94 12/14/18 04:32 78 93 12/14/18 04:30 80 93 12/14/18 04:15 88 94 12/14/18 04:01 95 H 127/76 96 12/14/18 04:00 90 96 12/14/18 03:45 97 H 96 12/14/18 03:30 103 H 157/102 H 95 Lab Results (24hrs): Laboratory Tests (24 Hours) 12/14/18 12/14/18 12/14/18 14:28 06:59 03:33 WBC Neut # (Auto) Creatinine 2.07 H 1.88 H Est Cr Clr Drug Dosing 19.6 21.7 Procalcitonin 26.79 H 12/14/18 12/14/18 00:27 00:27 WBC 10.94 H Neut # (Auto) 7.54 H Creatinine 1.86 H Est Cr Clr Drug Dosing 21.9 Procalcitonin Micro Results: 12/14/18 06:59 Aerobic Blood Culture - Pending Blood Anaerobic Blood Culture - Pending 12/14/18 06:49 Aerobic Blood Culture - Pending Blood Anaerobic Blood Culture - Pending 12/14/18 01:20 Urine Culture - Pending Urine,Indwelling Cath - Risk Factors for Resistance * Hospitalization for 48 hours or more within the past 90 days * Antimicrobial use within the last 90 days - Assessment & Plan Assessment 83 year old F admitted with respiratory failure continued on linezolid which was prescribed for foot ulcer growing enterococcus/coag negative staph. Started on cefepime. Patient currently ventilated, starting fentanyl for pain, possible interaction with linezolid (serotonin syndrome;contraindication vs. severe warning), upon review no documented cases of combination causing serotonin syndrome together, but a case reported when there was a combination of amitriptyline, fentanyl, linezolid. Recommendations to avoid if possible. Per conversation with provider will switch linezolid to vancomycin due to interacti on. Patient with LEEANN on admission, renal function currently declining, therefore will dose by levels. Vancomycin would retain pulmonary coverage over daptomycin, although nasal swab MRSA negative. Plan Vancomycin IV * Estimated PK Parameters: Vd L/kg, Castro 0.020 hr-1, t1/2 33 hr * Loading dose: 1500 mg (20 mg/kg) * Dose by levels * Goal trough level 15-20 mcg/mL * Random level tomorrow AM Pharmacy will continue to follow and will adjust dose/frequency as necessary. Thank you.
[2018-12-14 17:14] LABS: Partial Thromboplastin Ratio 2.4
--- NOTE | 2018-12-14 17:16 | History & Physical Bridge Note ---
Date of Service December 14, 2018 History & Physical Bridge Note I have examined the patient, reviewed the History & Physical and in the interval since the performance of the History & Physical I have noted the following changes of clinical significance: discussed with ICU staff, patient will remain intubated today poor prognosis with pneumonia, elevated troponin, acute respiratory failure palliative care consult has been placed will repeat labs in the AM and assess daily to try to wean off of ventilator
[2018-12-14 17:17] LABS: Partial Thromboplastin Time 64.6 Seconds (21.0-31.0)
--- NOTE | 2018-12-14 17:23 | Palliative Care Consultation ---
Date of Consultation December 14, 2018 Assessment & Plan (1) Palliative care encounter: Patient is an 83-year-old female with a past medical history significant for hypertension CKD diabetes with polyneuropathy, CVA x2, ERNST-CPAP, spinal stenosis, vertebral artery stenosis, right ICA stenosis and multivessel CAD who was recently hospitalized here from 12/02 - 12/10 for a non-STEMI. 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 Patient was placed on Eliquis and Plavix with a plan to repeat echo in 1 month. During her hospital stay patient was found to have a suspected embolic CVA-she had bilateral occipital infarct right greater than left. Patient was discharged on 12/10 to [facility] for rehab. Patient had been doing well until the evening of 12/13 when she began having acute onset of shortness of breath and chest pain after dinner-patient was brought by EMS to the emergency room. Patient's sats were 85%-she was placed on CPAP and her sats decreased to 60%. Patient required intubation in the emergency room and is admitted to the ICU. Patient's chest x- ray is positive for acute pulmonary edema as well as a left basilar opacity, her white count was 10.94 up from her discharge white count of 7.24. Patient has been started on cefepime and vancomycin, continued on Plavix and indoor as well as metoprolol. Patient is on insulin for blood sugar control. Patient with her eyes open during exam and discussion-able to nod yes or no to simple questions. Patient's of 9 years reports that she has always stated she wanted everything done including resuscitation. Was able to speak with the patient with and son-in-law at bedside-asked her if we remove the ET tube which she wanted replaced if she did not do well-patient did not nod yes or no. Asked patient if she would like to think about it-she nodded yes. Her response somewhat surprised her and son-in-law based on prior discussions regarding resuscitation. Patient did indicate that she wanted her and daughter to be her decision makers. Discussed treatment options as well as plan to see how patient does overnight with possible wean from ventilator tomorrow. Discussed with and son-in-law regarding how we should proceed if she would deteriorate overnight. stated he would want a discuss things with his daughter as well as son-in-law. Daughter is to arrive after work later this evening. Patient appears alert and understands our conversation-family encouraged that she appears to be improving. Discussed the role of palliative care and providing support regarding medical decision-making. At this point patient will remain a full code. Collaborated with attending physician-Dr. Gonsales, regarding conversation with family. Attending physician can continue conversation this evening when daughter arrives. Patient and have been for 9 years, he has 9 children, she has 1 surviving daughter. Patient has no history of tobacco use or secondhand tobacco exposure. 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 No other known toxic exposures. -CODE STATUS-patient will remain a full code at this time. , daughter and son-in-law to have further discussions regarding escalation of care if patient's condition would deteriorate. -If patient continues to improve plan is for trial extubation-discussed with family having further conversation regarding patient's wishes regarding aggre ssive measures when she is able to speak -Respiratory failure-patient intubated-appears to be improving -Pulmonary edema-patient currently being diuresed -Stressed and use TACK WELDER-EF 40 to 45% with LV apical akinesis-on Plavix and heparin -Multivessel CAD-not amenable to surgical intervention-continue metoprolol, Imdur,Plavix and heparin-cardiology following -Recent efy-QZLDG-nyqszhzjwb involved -LEEANN-admission creatinine 2.07 -CKD stage III-prior baseline creatinine 1.41.7 -Diabetic foot ulcer with abscess formation-patient on IV cefepime and vancomycin-continue blood sugar control with insulin Will continue to follow and assist patient and family with medical decision making as well as support during patient spent critical illness (2) Respiratory failure: Chronicity: acute Respiratory failure complication: hypoxia and hypercapnia Qualified Code(s): J96.01 - Acute respiratory failure with hypoxia; J96.02 - Acute respiratory failure with hypercapnia (3) Pulmonary edema: Chronicity: acute Qualified Code(s): J81.0 - Acute pulmonary edema (4) Stress-induced cardiomyopathy: (5) Multi-vessel coronary artery stenosis: (6) NSTEMI (non-ST elevated myocardial infarction): (7) Acute kidney injury: (8) Chronic kidney disease, stage 3: (9) Diabetic foot ulcer associated with type 2 diabetes mellitus: Diabetic foot ulcer location: heel Laterality: right Non- pressure ulcer stage: with fat layer exposed Qualified Code(s): E11.621 - Type 2 diabetes mellitus with foot ulcer; L97.412 - Non-pressure chronic ulcer of right heel and midfoot with fat layer exposed History of Present Illness Reason for Consultation: Address CODE STATUS and goals of care Requesting Physician: Dr. Zachary Martinez Attending Physician: Gino Colvin, History of Present Illness Chart reviewed, patient seen and examined. Patient's , son-in-law and friend at bedside. Collaborated with attending physician Dr. Gonsales Patient is an 83-year-old female with a past medical history significant for hypertension CKD diabetes with polyneuropathy, CVA x2, ERNST-CPAP, spinal stenosis, vertebral artery stenosis, right ICA stenosis and multivessel CAD who was recently hospitalized here from 12/02 - 12/10 for a non-STEMI. Patient was fo und to have stress cardiomyopathy-EF 40 to 45% with LV apical akinesis. Patient was placed on Eliquis and Plavix with a plan to repeat echo in 1 month. During her hospital stay patient was found to have a suspected embolic CVA-she had bilateral occipital infarct right greater than left. Patient was discharged on 12/10 to [facility] for rehab. Patient had been doing well until the evening of 12/13 when she began having acute onset of shortness of breath and chest pain after dinner-patient was brought by EMS to the emergency room. Patient's sats were 85%-she was placed on CPAP and her sats decreased to 60%. Patient required intubation in the emergency room and is admitted to the ICU. Patient's chest x- ray is positive for acute pulmonary edema as well as a left basilar opacity, her white count was 10.94 up from her discharge white count of 7.24. Patient has been started on cefepime and vancomycin, continued on Plavix and indoor as well as metoprolol. Patient is on insulin for blood sugar control. Patient with her eyes open during exam and discussion-able to nod yes or no to simple questions. Patient's of 9 years reports that she has always stated she wanted everything done including resuscitation. Was able to speak with the patient with and son-in-law at bedside-asked her if we remove the ET tube which she wanted replaced if she did not do well-patient did not nod yes or no. Asked patient if she would like to think about it-she nodded yes. Her response somewhat surprised her and son-in-law based on prior discussions regarding resuscitation. Patient did indicate that she wanted her and daughter to be her decision makers. Discussed treatment options as well as plan to see how patient does overnight with possible wean from ventila tor tomorrow. Discussed with and son-in-law regarding how we should proceed if she would deteriorate overnight. stated he would want a discuss things with his daughter as well as son-in-law. Daughter is to arrive after work later this evening. Patient appears alert and understands our conversation-family encouraged that she appears to be improving. Discussed the role of palliative care and providing support regarding medical decision-making. At this point patient will remain a full code. Collaborated with attending physician-Dr. Gonsales, regarding conversation with family. Attending physician can continue conversation this evening when daughter arrives. Patient and have been for 9 years, he has 9 children, she has 1 surviving daughter. Patient has no history of tobacco use or secondhand tobacco exposure. 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 No other known toxic exposures. Allergies Allergy/AdvReac Type Severity Reaction Status Date / Time amitriptyline Allergy Intermediate BLURRED Verified 12/14/18 00:19 DOUBLE VISION gabapentin Allergy Intermediate SHAKES,VISION Verified 12/14/18 00:19 CHANGES latex Allergy Intermediate SKIN GETS Verified 12/14/18 00:19 RAW-PT HAS NO RECOLLECTION meloxicam Allergy Intermediate DIARRHEA Verified 12/14/18 00:19 metformin Allergy Intermediate HOT FLASHES Verified 12/14/18 00:19 pregabalin Allergy Intermediate DIZZINESS, Verified 12/14/18 00:19 SLEEPY acetaminophen Allergy Mild SWEATING Verified 12/14/18 00:19 pioglitazone Allergy Mild SORE Verified 12/14/18 00:19 THROAT,EAts excessively Cipro Allergy Unknown itshiness,red Verified 06/25/16 17:42 streak ciprofloxacin Allergy Unknown itchiness,red Verified 12/14/18 00:19 streak guaifenesin Allergy Unknown UNKNOWN Verified 12/14/18 00:19 metronidazole Allergy Unknown UNKNOWN Verified 12/14/18 00:19 Penicillins Allergy Unknown INJECTION Verified 12/14/18 00:19 UNKNOWN rofecoxib Allergy Unknown UNKNOWN Verified 12/14/18 00:19 rosuvastatin Allergy Unknown UNKNOWN Verified 12/14/18 00:19 simvastatin Allergy Unknown UNKNOWN Verified 12/14/18 00:19 Sulfa (Sulfonamide Allergy Unknown HIVES Verified 12/14/18 00:19 Antibiotics) tramadol Allergy Unknown SWEATING Verified 12/14/18 00:19 Tricyclic Compounds Allergy Unknown ON WINDY Verified 12/14/18 00:19 [place] LIST Home Medications Home Medications Medication Instructions Recorded Confirmed Type atorvastatin 40 mg tablet 40 mg PO HS tab 06/28/18 12/14/18 History clopidogrel 75 mg tablet 75 mg PO QPM 06/28/18 12/14/18 History insulin glargine (U- 100) 100 12 units SQ HS ml 06/28/18 12/14/18 History unit/mL subcutaneous solution topiramate 25 mg tablet 25 mg PO QAM #30 tab 11/05/18 12/14/18 History cholecalciferol (vitamin D3) 1,000 unit PO QDL 12/01/18 12/14/18 History [Vitamin D3] gabapentin 100 mg PO QAM 12/01/18 12/14/18 History lisinopril 10 mg PO QAM 12/01/18 12/14/18 History pantoprazole [Protonix] 40 mg PO DAILYBB 12/01/18 12/14/18 History apixaban [Eliquis] 2.5 mg PO BID #60 tab 12/10/18 12/14/18 Rx docusate sodium 100 mg PO BID #60 cap 12/10/18 12/14/18 Rx furosemide 20 mg PO QAM #0 tab 12/10/18 12/14/18 Rx isosorbide mononitrate 30 mg PO QAM #30 tab 12/10/18 12/14/18 Rx polyethylene glycol 3350 [Miralax] 17 g PO BID #60 ea 12/10/18 12/14/18 Rx acetaminophen [Tylenol Extra 1,000 mg PO Q6H PRN 12/14/18 12/14/18 History Strength] folic acid 1 mg PO QDL 12/14/18 12/14/18 History linezolid 600 mg PO AMHS 12/14/18 12/14/18 History metoprolol succinate 200 mg PO QAM 12/14/18 12/14/18 History Patient History Medical History Chronic kidney disease, stage 3 (Chronic) HTN (hypertension) (Chronic) Myocardial infarction Diabetes mellitus with diabetic polyneuropathy (Acute) Ulcer of right heel (Acute) Anxiety associated with depression (Chronic) Benign recurrent vertigo (Chronic) Bilateral foot-drop (Chronic) Blood clotting disorder (Chronic) Chronic GERD (Chronic) Diabetes mellitus type 2 with complications, uncontrolled (Chronic) Gastritis (Chronic) H/O diastolic dysfunction (Chronic) H/O: CVA (cerebrovascular accident) (Chronic) Hyperlipidemia (Chronic) Hypokalemia (Chronic) Memory loss (Chronic) Nephropathy (Chronic) Neurologic gait dysfunction (Chronic) Osteoarthritis (Chronic) Polyarthritis (Chronic) Resting tremor (Chronic) Right lumbar radiculopathy (Chronic) Sleep apnea (Chronic) Stenosis of right carotid artery (Chronic) Urinary frequency (Chronic) Vitamin D deficiency (Chronic) Weight disorder (Chronic) Cataract (Resolved) Cholecystectomy planned (Resolved) H/O: hysterectomy (Resolved) Surgical History Hx of tonsillectomy (Resolved) S/P cholecystectomy S/P hysterectomy S/P tonsillectomy Family History Mother , in her 80s of a cerebral aneurysm Heart disease Stroke Tremor Father , in his 80s of heart disease Heart disease Other No pertinent family history Social History Preferred Language: Bel[place]ian Communication Ability: Unable Communication Ability Comment: INTUBATED. 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 [employer] Feels Safe at Home: Yes Smoking Status: Never smoker Hx Alcohol Use: No Hx Substance Use: No Review of Systems Review of Systems: Unobtainable due to endotracheal tube Physical Exam Physical Exam: Patient awake and alert-able to nod yes and no to questions, appears to comprehend conversation at bedside with family HEENT: EOMI, hearing appears to be within normal limits Respiratory: Patient intubated, appears comfortable CV: Regular rate Abdomen: Not distended Extremities: Warm and perfused Neuro: Alert and oriented, history notes mild cognitive deficits status post CVA on 12/04 Results & Data Vital Signs (Past 12 Hours) Vital Signs Temp Pulse Pulse Resp BP BP Pulse Ox 12/14/18 13:50 72 25 H 98 12/14/18 11:50 77 26 H 98 12/14/18 08:00 78 28 H 99 12/14/18 07:15 73 115/62 100 12/14/18 07:00 76 100/59 L 100 12/14/18 06:45 74 98/54 L 99 12/14/18 06:40 75 89/53 L 99 12/14/18 06:33 75 89/49 L 97 12/14/18 06:30 73 77/50 L 98 12/14/18 06:22 73 22 92 12/14/18 05:45 97.5 F L 78 22 143/78 H 95 12/14/18 05:26 82 143/78 H 99 PG Care Time/CCT Total # of Minutes Spent Total Time Spent with Patient: Total time spent is greater than 50% in coordination of care (as documented) at patient's floor/unit and/or counseling patient: Time Spent Attending Total time spent 70 minutes with greater than 50% of the time spent at bedside discussing patient's current condition as well as guarded prognosis with patient's family
[2018-12-14] MEDS: DOCUSATE SODIUM SYRUP 100 MG/10 ML UDC PO SCH (20:22)
[2018-12-14] MEDS: FAMOTIDINE 20 MG in SYRINGE 3 ML IV SCH (20:22)
[2018-12-14] MEDS: INSULIN GLARGINE SOLOSTAR 100 UNITS/ML 3 ML PEN SC SCH (20:42)
[2018-12-14] MEDS ORDERED: CLOPIDOGREL BISULFATE 75 MG TAB PO SCH (21:00)
[2018-12-14] MEDS ORDERED: ATORVASTATIN 40 MG TAB PO SCH (21:00)
[2018-12-14] MEDS ORDERED: METOPROLOL TARTRATE 100 MG TAB PO SCH (21:00)
[2018-12-14] MEDS ORDERED: NORMOSOL-R 500 ML IV ONE (23:48)
[2018-12-14 23:59] LABS: iSTAT Allen Test Pass; iSTAT Art Bld Gas pCO2 Correct 23 mmHg (35-46); iSTAT Art Bld Gas pH Corrected 7.345 (7.35-7.45); iSTAT Arterial Blood Gas HCO3 13 meg/L (19-24); iSTAT Arterial Blood Gas pCO2 22 mmHg (35-46); iSTAT Arterial Blood Gas pH 7.36 (7.35-7.45); iSTAT Arterial Blood Gas pO2 112 mmHg (80-95); iSTAT Arterial Blood Gas pO2 C 118; iSTAT Carbon Dioxide 13 mEq/l (24-31); iSTAT Site L Radial
[2018-12-15 00:13] LABS: BUN Creatinine Ratio 21.2 (10-20); Calcium 8.2 mg/dl (8.5-10.1); Creatinine Clr Calc Pharmacy 18.5 ml/min; Est GFR (African American) 23.6; Est GFR (Non-African American) 20.3; Potassium 4.6 mmol/L (3.5-5.1)
[2018-12-15] MEDS: INSULIN ASPART 100 UNITS/ML 3 ML PEN SC SCH ×7 (00:23→23:39)
[2018-12-15] MEDS: METOPROLOL TARTRATE 25 MG TAB PO SCH ×3 (00:26→12:53)
[2018-12-15 00:27] LABS: Troponin I 85.2 ng/ml (0-0.045)
[2018-12-15 05:09] LABS: BUN Creatinine Ratio 21.7 (10-20); Creatinine Clr Calc Pharmacy 19.3 ml/min; Est GFR (African American) 24.8; Est GFR (Non-African American) 21.4; Magnesium 2.1 mg/dl (1.8-2.4); Potassium 4.4 mmol/L (3.5-5.1)
[2018-12-15 05:10] LABS: Partial Thromboplastin Ratio 3.5
[2018-12-15 05:15] LABS: Partial Thromboplastin Time 94.3 Seconds (21.0-31.0)
[2018-12-15 05:19] LABS: Phosphorus 4.3 mg/dl (2.5-4.9)
[2018-12-15 05:41] LABS: iSTAT Allen Test Pass; iSTAT Art Bld Gas pCO2 Correct 22 mmHg (35-46); iSTAT Art Bld Gas pH Corrected 7.385 (7.35-7.45); iSTAT Arterial Blood Gas HCO3 13 meg/L (19-24); iSTAT Arterial Blood Gas pCO2 22 mmHg (35-46); iSTAT Arterial Blood Gas pH 7.38 (7.35-7.45); iSTAT Arterial Blood Gas pO2 135 mmHg (80-95); iSTAT Arterial Blood Gas pO2 C 132; iSTAT Carbon Dioxide 14 mEq/l (24-31); iSTAT Site L Radial
[2018-12-15] MEDS: HEPARIN SODIUM/DEXTROSE 25,000 UNITS/500 ML BAG IV SCH ×2 (05:44→09:50)
--- NOTE | 2018-12-15 07:04 | XRay Report ---
XR chest 1V portable CLINICAL HISTORY: pneumonia COMPARISON STUDY: 12/14/2018 FINDINGS: There is an endotracheal tube 3.5 cm above the mounika. There is a nasogastric tube with its tip in the stomach. The heart is mildly enlarged. Small pleural effusions are visualized. There is b een marked improvement in the pulmonary edema pattern.[ IMPRESSION: 1. Resolving pulmonary edema 2. Small bilateral pleural effusions Electronically signed by: Dru Harmon M.D. 12/15/2018 7:03 AM
[2018-12-15] MEDS ORDERED: ERTAPENEM SODIUM 1,000 MG in SODIUM CHLORIDE 0.9% 50 ML IV SCH (07:45)
[2018-12-15] MEDS ORDERED: VANCOMYCIN HCL 1,000 MG in SODIUM CHLORIDE 0.9% 250 ML IV ONE (07:45)
[2018-12-15] MEDS: DOCUSATE SODIUM SYRUP 100 MG/10 ML UDC PO SCH (07:52)
[2018-12-15] MEDS: CEFEPIME 1,000 MG in SYRINGE 0 ML IV SCH (07:53)
[2018-12-15] MEDS: FAMOTIDINE 20 MG in SYRINGE 3 ML IV SCH (07:53)
--- NOTE | 2018-12-15 09:10 | Critical Care Progress Note ---
Date of Service December 15, 2018 Assessment & Plan (1) Admitted to intensive care unit: Reason Critically Ill: 83-year-old female here for acute pulmonary edema with hypoxemia necessitating intubation. Past medical history significant for recent stress-induced cardiomyopathy, CAD, recent VT/non-STEMI, CVA, diabetes mellitus with diabetic foot ulcer likely right foot abscess that grew Enterococcus faecalis and coagulase-negative staph last admission, anemia, chronic kidney disease stage III, peripheral arterial disease, stage II pressure ulcer present on admission, essential hypertension, dyslipidemia, obstructive sleep apnea, diabetic polyneuropathy, homonymous hemianopia secondary to CVA suspected LV thrombus as a source of embolic CVA Palliative: Palliative care consulted for assistance in end of life care and goals of care decision making. Following their recommendations. -CODE STATUS-patient currently DNR Neuro: -CAM ICU: Negative -Secondary to sedation for intubation status History of AMS versus cognitive impairment Cardiac: ACS: Patient was recently hospitalized for an an STEMI cardiac catheterization at that time revealed severe complex multivessel coronary artery disease. The patient is not thought to be a surgical candidate due to multiple comorbidities. CAD is medically managed. Echo showed moderate LV dysfunction with apical akinesis and there is a concern for stress-induced cardiomyopathy. Status post cardiac catheterization she experienced bilateral occipital strokes. She has been on anticoagulation for potential thrombus. -Currently resolving troponins peaked and trending down -Cardiology consulted following recommendations -Medical management for coronary artery disease and heart failure -Heparin infusion -Clopidogrel, start aspirin -Additional diuresis with either bolus or loop diuretics -If you UOP does not improve may need a trial of inotropes -On atorvastatin 40 mg Respiratory: Acute respiratory failure with hypoxemia secondary to pulmonary edema Patient appears to have had an acute exacerbation of her chronic systolic heart failure. She was unable to maintain oxygenation on presentation and was subsequently intubated. She remains sedated sedated and intubated. -Pulmonary edema is resolving without significant diuretics -Monitor I's and O's Pneumonia Patient's chest x-ray is consistent with pneumonia. She has an elevated procalcitonin,Elevated white count, lactate is improving -Blood and urine and sputum cultures pending -History of coag negative staph and E faecalis on her right foot -Patient placed on empiric cefepime plan to narrow pending cultures -Received a dose of Vanco in the ED GI: Consult dietary for enteral nutrition Famotidine IV for GI prophylaxis RENAL/LYTES: Hyponatremia: May be secondary to fluid resuscitation versus diuretic therapy -Replace lytes as needed. LEEANN Baseline creatinine appears to be 1.4, currently 1.88 -Monitor in the setting of aggressive diuretic therapy : - No concerns at this time. ENDO: History of diabetes type 2 -ICU hypoglycemia protocol in place -Glycemic consult placed HEME: - Stable H&H. -Will monitor for any drops in the setting of Heparin gtt ID: Pneumonia See above, given patient's recent culture history transition back to Zyvox Pressure ulcers Numerous potential sites for infections, monitor for signs and symptoms of development of cellulitis and/or infection. -Monitor fever curve. INTEGUMENTARY: -No acute concerns at present LINES/IV ACCESS: -PIVs intact. DVT PROPHYLAXIS: -Heparin gtt. Dispo: ICU Thank you for allowing us to be part of this patient's care. Please refer to Dr. Gonsales's documentation for any further recommendations. (2) Multifocal pneumonia: (3) Respiratory failure: (4) Acute systolic heart failure: (5) Acute kidney injury: (6) Acute VT: (7) Severe sepsis: Supervising Physician Co-Signing Physician Notes Patient seen and examined with Dr. Martinez, resident physician. I agree with his assessment and plan aside for any additions/exceptions noted: Patient was doing well today on spontaneous breathing trial. We extubated her directly to BiPAP and she has continued to do well. Her renal function is starting to improve. Her troponins have peaked. Her chest x-ray looks to be substantially improved. Continue heparin drip for total 48 hours. Appreciate cardiology's input. Continue antibiotics for bilateral pneumonia and urinary tract infection. Follow cultures. Repeat procalcitonin tomorrow to make sure there is a downtrend. Echo reviewed which demonstrates a reduced ejection fraction 35% which is a change from prior echo likely due to her NSTEMI. Perform a swallow study later today and if she passes can start clear liquids. Likely transfer to the floor with telemetry tomorrow. Subjective Pt still intubated able to answer yes or no. No acute events overnight, UOP increasing, pt may be turning the corner. Pt and family met with Palliative ye sterday, currently DNR/DNI Physical Exam Physical Exam: General: No acute distress, on BiPAP HEENT: Normal cephalic atraumatic Neck: Trachea midline, normal visual inspection Cardiac:Regular and rhythm I do not appreciate murmurs rubs or gallops, normal S1, normal S2, negative calf tenderness, negative pedal edema Respiratory: On BiPAP, diminished lung sounds GI: Normal bowel sounds, soft, nontender, nondistended MSK: Moves extremities Skin: Warm dry and intact Neuro: Alert Psych: Cooperative Results & Data Vital Signs (Past 12 Hours) Vital Signs Pulse Resp BP Pulse Ox 12/15/18 07:30 66 12 100 12/15/18 07:25 64 25 H 100 12/15/18 06:00 68 132/88 100 12/15/18 05:30 67 164/68 H 12/15/18 05:20 61 25 H 100 12/15/18 05:00 62 151/61 H 100 12/15/18 04:30 64 146/79 H 100 12/15/18 04:00 59 L 145/64 H 100 12/15/18 03:30 62 144/57 H 100 12/15/18 03:00 61 143/65 H 100 12/15/18 02:30 61 145/66 H 100 12/15/18 02:10 60 25 H 100 12/15/18 02:00 59 L 129/54 L 100 12/15/18 01:30 63 134/66 100 12/15/18 01:00 62 127/58 L 100 12/15/18 00:30 63 130/63 100 12/15/18 00:00 62 127/58 L 99 12/14/18 23:30 66 25 H 112/66 98 12/14/18 23:24 60 12/14/18 23:00 63 115/56 L 98 12/14/18 22:00 62 100/52 L 12/14/18 21:45 64 97 12/14/18 21:30 66 112/56 L 97 Laboratory Results 12/15/18 12/15/18 12/15/18 Range/Units 08:00 05:28 04:15 APTT (21.0-31.0) Seconds PTT Ratio Sample Site L Radial POC pH 7.38 (7.35-7.45) POC pCO2 22 L (35-46) mmHg POC pO2 135 H (80-95) mmHg POC HCO3 13 L (19-24) juan luis/L POC Total CO2 14 L (24-31) mEq/l POC Base Excess -12.0 L (-9-1.8) juan luis/L ABG pH (Temp Correct) 7.385 (7.35-7.45) ABG pCO2 (Temp Corrct 22 L (35-46) mmHg POC ABG pO2 at Pt Temp 132 POC ABG O2 Sat 99.0 H (90-95) % Jorge Test Pass O2 Delivery Device Ventilator POC O2 Rate 25 Minute Ventilation 8.5 Tidal Volume 350 PEEP 5 Sodium (136-145) mmol/L Potassium (3.5-5.1) mmol/L Chloride (98-107) mmol/L Carbon Dioxide (21-32) mmol/L Anion Gap (3-11) BUN (7-18) mg/dl Creatinine (0.6-1.2) mg/dl Est Cr Clr Drug Dosing ml/min Est GFR ( Amer) Est GFR (Non-Af Amer) BUN/Creatinine Ratio (10-20) Glucose (70-99) mg/dl POC Glucose 147 H (70-99) Lactate (0.4-2.0) mmol/L Calcium (8.5-10.1) mg/dl Phosphorus (2.5-4.9) mg/dl Magnesium (1.8-2.4) mg/dl Troponin I 64.400 H* (0-0.045) ng/ml Ur Random Sodium mmol/L Nasal Screen MRSA (PCR) (Negative) Random Vancomycin mcg/ml 12/15/18 12/15/18 12/15/18 Range/Units 04:15 04:15 04:15 APTT 94.3 H* (21.0-31.0) Seconds PTT Ratio 3.5 Sample Site POC pH (7.35-7.45) POC pCO2 (35-46) mmHg POC pO2 (80-95) mmHg POC HCO3 (19-24) juan luis/L POC Total CO2 (24-31) mEq/l POC Base Excess (-9-1.8) juan luis/L ABG pH (Temp Correct) (7.35-7.45) ABG pCO2 (Temp Corrct (35-46) mmHg POC ABG pO2 at Pt Temp POC ABG O2 Sat (90-95) % Jorge Test O2 Delivery Device POC O2 Rate Minute Ventilation Tidal Volume PEEP Sodium 132 L (136-145) mmol/L Potassium 4.4 (3.5-5.1) mmol/L Chloride 103 (98-107) mmol/L Carbon Dioxide 18 L (21-32) mmol/L Anion Gap 11.0 (3-11) BUN 46 H (7-18) mg/dl Creatinine 2.10 H (0.6-1.2) mg/dl Est Cr Clr Drug Dosing 19.3 ml/min Est GFR ( Amer) 24.8 Est GFR (Non-Af Amer) 21.4 BUN/Creatinine Ratio 21.7 H (10-20) Glucose 157 H (70-99) mg/dl POC Glucose (70-99) Lactate (0.4-2.0) mmol/L Calcium 8.0 L (8.5-10.1) mg/dl Phosphorus 4.3 D (2.5-4.9) mg/dl Magnesium 2.1 (1.8-2.4) mg/dl Troponin I (0-0.045) ng/ml Ur Random Sodium mmol/L Nasal Screen MRSA (PCR) (Negative) Random Vancomycin 16.8 mcg/ml 12/15/18 12/15/18 12/14/18 Range/Units 04:10 00:16 23:46 APTT (21.0-31.0) Seconds PTT Ratio Sample Site L Radial POC pH 7.36 (7.35-7.45) POC pCO2 22 L (35-46) mmHg POC pO2 112 H (80-95) mmHg POC HCO3 13 L (19-24) juan luis/L POC Total CO2 13 L (24-31) mEq/l POC Base Excess -13.0 L (-9-1.8) juan luis/L ABG pH (Temp Correct) 7.345 L (7.35-7.45) ABG pCO2 (Temp Corrct 23 L (35-46) mmHg POC ABG pO2 at Pt Temp 118 POC ABG O2 Sat 98.0 H (90-95) % Jorge Test Pass O2 Delivery Device Ventilator POC O2 Rate 25 Minute Ventilation 8.4 Tidal Volume 350 PEEP 5 Sodium (136-145) mmol/L Potassium (3.5-5.1) mmol/L Chloride (98-107) mmol/L Carbon Dioxide (21-32) mmol/L Anion Gap (3-11) BUN (7-18) mg/dl Creatinine (0.6-1.2) mg/dl Est Cr Clr Drug Dosing ml/min Est GFR ( Amer) Est GFR (Non-Af Amer) BUN/Creatinine Ratio (10-20) Glucose (70-99) mg/dl POC Glucose 158 H 172 H (70-99) Lactate (0.4-2.0) mmol/L Calcium (8.5-10.1) mg/dl Phosphorus (2.5-4.9) mg/dl Magnesium (1.8-2.4) mg/dl Troponin I (0-0.045) ng/ml Ur Random Sodium mmol/L Nasal Screen MRSA (PCR) (Negative) Random Vancomycin mcg/ml 12/14/18 12/14/18 12/14/18 Range/Units 23:33 23:33 20:02 APTT (21.0-31.0) Seconds PTT Ratio Sample Site POC pH (7.35-7.45) POC pCO2 (35-46) mmHg POC pO2 (80-95) mmHg POC HCO3 (19-24) juan luis/L POC Total CO2 (24-31) mEq/l POC Base Excess (-9-1.8) juan luis/L ABG pH (Temp Correct) (7.35-7.45) ABG pCO2 (Temp Corrct (35-46) mmHg POC ABG pO2 at Pt Temp POC ABG O2 Sat (90-95) % Jorge Test O2 Delivery Device POC O2 Rate Minute Ventilation Tidal Volume PEEP Sodium 131 L (136-145) mmol/L Potassium 4.6 D (3.5-5.1) mmol/L Chloride 104 (98-107) mmol/L Carbon Dioxide 15 L (21-32) mmol/L Anion Gap 12.0 H (3-11) BUN 46 H (7-18) mg/dl Creatinine 2.19 H (0.6-1.2) mg/dl Est Cr Clr Drug Dosing 18.5 ml/min Est GFR ( Amer) 23.6 Est GFR (Non-Af Amer) 20.3 BUN/Creatinine Ratio 21.2 H (10-20) Glucose 167 H (70-99) mg/dl POC Glucose 167 H (70-99) Lactate 1.6 (0.4-2.0) mmol/L Calcium 8.2 L (8.5-10.1) mg/dl Phosphorus (2.5-4.9) mg/dl Magnesium (1.8-2.4) mg/dl Troponin I 85.200 H* (0-0.045) ng/ml Ur Random Sodium mmol/L Nasal Screen MRSA (PCR) (Negative) Random Vancomycin mcg/ml 12/14/18 12/14/18 12/14/18 Range/Units 17:00 16:44 16:26 APTT 64.6 H* (21.0-31.0) Seconds PTT Ratio 2.4 Sample Site POC pH (7.35-7.45) POC pCO2 (35-46) mmHg POC pO2 (80-95) mmHg POC HCO3 (19-24) juan luis/L POC Total CO2 (24-31) mEq/l POC Base Excess (-9-1.8) juan luis/L ABG pH (Temp Correct) (7.35-7.45) ABG pCO2 (Temp Corrct (35-46) mmHg POC ABG pO2 at Pt Temp POC ABG O2 Sat (90-95) % Jorge Test O2 Delivery Device POC O2 Rate Minute Ventilation Tidal Volume PEEP Sodium (136-145) mmol/L Potassium (3.5-5.1) mmol/L Chloride (98-107) mmol/L Carbon Dioxide (21-32) mmol/L Anion Gap (3-11) BUN (7-18) mg/dl Creatinine (0.6-1.2) mg/dl Est Cr Clr Drug Dosing ml/min Est GFR ( Amer) Est GFR (Non-Af Amer) BUN/Creatinine Ratio (10-20) Glucose (70-99) mg/dl POC Glucose 126 H (70-99) Lactate (0.4-2.0) mmol/L Calcium (8.5-10.1) mg/dl Phosphorus (2.5-4.9) mg/dl Magnesium (1.8-2.4) mg/dl Troponin I (0-0.045) ng/ml Ur Random Sodium 11 mmol/L Nasal Screen MRSA (PCR) (Negative) Random Vancomycin mcg/ml 12/14/18 12/14/18 12/14/18 Range/Units 14:28 13:00 12:01 APTT (21.0-31.0) Seconds PTT Ratio Sample Site L Radial POC pH 7.33 L (7.35-7.45) POC pCO2 27 L (35-46) mmHg POC pO2 57 L (80-95) mmHg POC HCO3 14 L (19-24) juan luis/L POC Total CO2 15 L (24-31) mEq/l POC Base Excess -12.0 L (-9-1.8) juan luis/L ABG pH (Temp Correct) 7.327 L (7.35-7.45) ABG pCO2 (Temp Corrct 27 L (35-46) mmHg POC ABG pO2 at Pt Temp 57 POC ABG O2 Sat 88.0 L (90-95) % Jorge Test Pass O2 Delivery Device Ventilator POC O2 Rate 25 Minute Ventilation 10.8 Tidal Volume 350 PEEP 5 Sodium 130 L (136-145) mmol/L Potassium 5.5 H (3.5-5.1) mmol/L Chloride 102 (98-107) mmol/L Carbon Dioxide 15 L (21-32) mmol/L Anion Gap 13.0 H (3-11) BUN 42 H (7-18) mg/dl Creatinine 2.07 H (0.6-1.2) mg/dl Est Cr Clr Drug Dosing 19.6 ml/min Est GFR ( Amer) 25.2 Est GFR (Non-Af Amer) 21.8 BUN/Creatinine Ratio 20.1 H (10-20) Glucose 126 H (70-99) mg/dl POC Glucose 92 (70-99) Lactate (0.4-2.0) mmol/L Calcium 8.7 (8.5-10.1) mg/dl Phosphorus (2.5-4.9) mg/dl Magnesium (1.8-2.4) mg/dl Troponin I (0-0.045) ng/ml Ur Random Sodium mmol/L Nasal Screen MRSA (PCR) (Negative) Random Vancomycin mcg/ml 12/14/18 12/14/18 12/14/18 Range/Units 11:17 10:03 06:25 APTT (21.0-31.0) Seconds PTT Ratio Sample Site POC pH (7.35-7.45) POC pCO2 (35-46) mmHg POC pO2 (80-95) mmHg POC HCO3 (19-24) juan luis/L POC Total CO2 (24-31) mEq/l POC Base Excess (-9-1.8) juan luis/L ABG pH (Temp Correct) (7.35-7.45) ABG pCO2 (Temp Corrct (35-46) mmHg POC ABG pO2 at Pt Temp POC ABG O2 Sat (90-95) % Jorge Test O2 Delivery Device POC O2 Rate Minute Ventilation Tidal Volume PEEP Sodium (136-145) mmol/L Potassium (3.5-5.1) mmol/L Chloride (98-107) mmol/L Carbon Dioxide (21-32) mmol/L Anion Gap (3-11) BUN (7-18) mg/dl Creatinine (0.6-1.2) mg/dl Est Cr Clr Drug Dosing ml/min Est GFR ( Amer) Est GFR (Non-Af Amer) BUN/Creatinine Ratio (10-20) Glucose (70-99) mg/dl POC Glucose 91 102 H (70-99) Lactate (0.4-2.0) mmol/L Calcium (8.5-10.1) mg/dl Phosphorus (2.5-4.9) mg/dl Magnesium (1.8-2.4) mg/dl Troponin I (0-0.045) ng/ml Ur Random Sodium mmol/L Nasal Screen MRSA (PCR) Negative (Negative) Random Vancomycin mcg/ml Medications Administered Current Inpatient Medications Acetaminophen (Tylenol) 1,000 mg PO Q6H PRN PRN Reason: Pain Stop: 01/13/19 05:54 Last Admin: 12/14/18 21:21 Dose: 1,000 mg Documented by: Atorvastatin Calcium (Lipitor) 40 mg PO HS MINDY Stop: 01/13/19 20:59 Last Admin: 12/14/18 20:24 Dose: 40 mg Documented by: Clopidogrel Bisulfate (Plavix) 75 mg PO QPM MINDY Stop: 01/13/19 20:59 Last Admin: 12/14/18 20:26 Dose: 75 mg Documented by: Dextrose (Dextrose 50%) 25 - 50 ml IV UD PRN; Protocol PRN Reason: Hypoglycemia Protocol Stop: 01/13/19 03:44 Docusate Sodium (Colace) 100 mg PO BID MINDY Stop: 01/13/19 20:59 Last Admin: 12/15/18 07:52 Dose: Not Given Documented by: Enteral Nutritional Formula (Impact 1.0 Gee) 1,000 ml OG UD MINDY; Protocol Stop: 01/13/19 11:59 Last Admin: 12/14/18 15:32 Dose: 1,000 ml Documented by: Fentanyl Citrate (Fentanyl Citrate) 25 mcg IV Q15M PRN PRN Reason: Pain Stop: 12/28/18 14:31 Folic Acid (Folvite) 1 mg PO QDL MINDY Stop: 01/13/19 11:29 Last Admin: 12/14/18 11:55 Dose: 1 mg Documented by: Glucagon (Glucagen) 1 mg IM UD PRN; Protocol PRN Reason: Hypoglycemia Protocol Stop: 01/13/19 03:44 Glucose (Glucose 40%) 15 - 30 gm PO UD PRN; Protocol PRN Reason: Hypoglycemia Protocol Stop: 01/13/19 03:44 Glucose (Dex4 Glucose) 4 - 8 tabs PO UD PRN; Protocol PRN Reason: Hypoglycemia Protocol Stop: 01/13/19 03:44 Heparin Sodium/Dextrose (Heparin Sodium/Dextrose) 25,000 units in 500 mls @ 19 mls/hr IV .Q24H MINDY; Protocol Stop: 01/13/19 08:14 Last Titration: 12/15/18 07:00 Dose: 950 units/hr, 19 mls/hr Documented by: Cefepime HCl 1,000 mg/ Syringe 11.3 mls @ 5.5 mls/min IV Q24H MINDY; Protocol Stop: 12/24/18 08:59 Last Admin: 12/15/18 07:53 Dose: 5.5 mls/min Documented by: Famotidine 20 mg/ Syringe 5 mls @ 2.5 mls/min IV BID MINDY Stop: 01/13/19 20:59 Last Admin: 12/15/18 07:53 Dose: 2.5 mls/min Documented by: Vancomycin HCl 1,000 mg/ (Sodium Chloride) 270 mls @ 125 mls/hr IV NOW ONE Stop: 12/15/18 09:54 Last Admin: 12/15/18 08:11 Dose: 125 mls/hr Documented by: Insulin Aspart (Novolog Flexpen) 0 units SC Q4H MINDY; Protocol Stop: 01/13/19 11:59 Last Admin: 12/15/18 08:06 Dose: 3 units Documented by: Insulin Glargine (Lantus Solostar Pen) 12 units SC HS MINDY Stop: 01/13/19 20:59 Last Admin: 12/14/18 20:42 Dose: 12 units Documented by: Metoprolol Tartrate (Lopressor) 12.5 mg PO Q6H MINDY Stop: 01/14/19 00:00 Last Admin: 12/15/18 05:54 Dose: 12.5 mg Documented by: Miscellaneous (Icu Protocol For Hyperglycemia) 1 ea N/A PRN PRN; Protocol PRN Reason: Hyperglycemia Protocol Stop: 12/16/18 02:46 Miscellaneous (Carbohydrates For Hypoglycemia) 15 - 30 gm PO PRN PRN PRN Reason: Hypoglycemia Treatment Stop: 01/13/19 03:44 Miscellaneous Information (Consult Glycemic Management Pharmacy) 1 ea N/A UD PRN PRN Reason: Consult Stop: 01/13/19 04:42 Miscellaneous Information (Consult) 1 ea N/A UD PRN PRN Reason: Consult Stop: 01/13/19 15:15 Pantoprazole Sodium (Protonix) 40 mg PO DAILYBB [facility] Stop: 01/13/19 06:29 Last Admin: 12/14/18 07:52 Dose: Not Given Documented by: PG Care Time/CCT Total # of Minutes Spent Total Time Spent with Patient: Total time spent is greater than 50% in coordination of care (as documented) at patient's floor/unit and/or counseling patient: Critical Care Time: Yes Total Critical Care Time: 45 Resident Activity Tracking Resident Involvement: Resident Care Provided Care Provided: Adult Hospital Medicine (ICU) (1) Acute VT Involved coronary artery: unspecified coronary artery Myocardial infarction type: unspecified Qualified Code(s): I21.9 - Acute myocardial infarction, unspecified (2) Respiratory failure Chronicity: acute Respiratory failure complication: hypoxia and hypercapnia Qualified Code(s): J96.01 - Acute respiratory failure with hypoxia; J96.02 - Acute respiratory failure with hypercapnia
--- NOTE | 2018-12-15 11:44 | Palliative Care Progress Note ---
Date of Service December 15, 2018 Assessment & Plan (1) Palliative care encounter: Patient is an 83-year-old female with a past medical history significant for hypertension CKD diabetes with polyneuropathy, CVA x2, ERNST-CPAP, spinal stenosis, vertebral artery stenosis, right ICA stenosis and multivessel CAD who was recently hospitalized here from 12/02 - 12/10 for a non-STEMI. 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 Patient was placed on Eliquis and Plavix with a plan to repeat echo in 1 month. During her hospital stay patient was found to have a suspected embolic CVA-she had bilateral occipital infarct right greater than left. Patient was discharged on 12/10 to [facility] for rehab. Patient had been doing well until the evening of 12/13 when she began having acute onset of shortness of breath and chest pain after dinner-patient was brought by EMS to the emergency room. Patient's sats were 85%-she was placed on CPAP and her sats decreased to 60%. Patient required intubation in the emergency room and is admitted to the ICU. Palliative Care was consulted to discuss goals of care. -I met with patient and her in the patients room. -Patient was extubated this morning at 1025 after tolerating a CPAP weaning trial to Bipap. She is tolerating well and SpO2 is 100%. -I entered the room at another occasion when the patient's daughter arrived and she was then weaned to supplemental O2 and able to speak/converse directly at ease with her and daughter. She clearly indicated that she would not want any heroic measures taken moving forward. -The patient is oriented and understanding what is happening and the nature of events. I did explain what was happening medically which led to the conversation regarding code status and re-intunbation. -The expressed that he was upset she was extubated without family presence. Explained how her lung function was improving and tolerating the wean, confirmed it was NOT a terminal extubation. -The patient, myself, the patients and her daughter discussed CODE STATUS and discussed if her lung function would worsen or if she lost a pulse, if she would want resuscitated. The patient was clear to myself and her that she would NOT want to be re-intubated. -Code status changed in the computer to DNR/DNI. -The patient made it clear that should she continue to stabilize that she has a goal to return home with Hospice services, which the and daughter support. Case management aware and provided them with a Hospice agency list, along with a supplemental private care list. -Plan is to keep the patient in the ICU another day for closer monitoring and then an eventual downgrade in status. Case management to work on discharge planning. -Palliative Care will continue to follow and assist patient and family with med ical decision making, would be beneficial to have a POLST form completed prior to discharge. -PPS: 40% (2) Respiratory failure: (3) Pulmonary edema: (4) Stress-induced cardiomyopathy: (5) Multi-vessel coronary artery stenosis: (6) NSTEMI (non-ST elevated myocardial infarction): (7) Acute kidney injury: (8) Chronic kidney disease, stage 3: (9) Diabetic foot ulcer associated with type 2 diabetes mellitus: Subjective Patient was extubated this morning at 1025 to Bipap mask and is tolerating well with SpO2 100% Patient at bedside. Patient able to nod yes and no, focuses her eye gaze appropriately and is oriented and understanding what is going on. Pt denies pain Please see A/P for additional information Review of Systems Review of Systems: All systems reviewed & are unremarkable except as noted in HPI & below Physical Exam Physical Exam: Patient awake and alert-able to nod yes and no to questions, appears to comprehend conversation at bedside with Constitutional: well developed, cooperative and comfortable Eyes: PERRL, conjunctivae normal, anicteric sclerae ENMT: external ear and nose normal, oropharynx normal Respiratory: Auscultation: + diminished lung sounds On Bipap Cardiovascular: RRR, no murmur, no edema Gastrointestinal (Abdomen): normal bowel sounds, soft, nontender, no hepatosplenomegaly Psychiatric: A+Ox3, euthymic affect Insight: good insight Judgement: good judgement Genitourinary: indwelling robbins Results & Data Vital Signs (Past 12 Hours) Vital Signs Pulse Resp BP Pulse Ox 12/15/18 10:29 78 18 100 12/15/18 10:00 70 165/65 H 100 12/15/18 09:30 64 148/68 H 100 12/15/18 09:00 69 155/62 H 100 12/15/18 08:31 74 154/57 H 100 12/15/18 08:30 73 100 12/15/18 08:00 69 155/68 H 100 12/15/18 07:30 75 12 139/66 100 12/15/18 07:25 64 25 H 12/15/18 07:00 65 154/77 H 12/15/18 06:00 68 132/88 100 12/15/18 05:30 67 164/68 H 100 12/15/18 05:20 61 25 H 100 12/15/18 05:00 62 151/61 H 100 12/15/18 04:30 64 146/79 H 100 12/15/18 04:00 59 L 145/64 H 100 12/15/18 03:30 62 144/57 H 100 12/15/18 03:00 61 143/65 H 12/15/18 02:30 61 145/66 H 12/15/18 02:10 60 25 H 100 12/15/18 02:00 59 L 129/54 L 100 12/15/18 01:30 63 134/66 12/15/18 01:00 62 127/58 L 12/15/18 00:30 63 130/63 100 12/15/18 00:00 62 127/58 L 99 PG Care Time/CCT Total # of Minutes Spent Total Time Spent with Patient: Total time spent is greater than 50% in coordination of care (as documented) at patient's floor/unit and/or counseling patient: 45 Time Spent Midlevel Total time spent 45 minutes with > 50% of that time spent assessing the patient, discussing goals of care with patient and multiple family members (1) Diabetic foot ulcer associated with type 2 diabetes mellitus Diabetic foot ulcer location: heel Laterality: right Non-pressure ulcer stage: with fat layer exposed Qualified Code(s): E11.621 - Type 2 diabetes mellitus with foot ulcer; L97.412 - Non-pressure chronic ulcer of right heel and midfoot with fat layer exposed (2) Pulmonary edema Chronicity: acute Qualified Code(s): J81.0 - Acute pulmonary edema (3) Respiratory failure Chronicity: acute Respiratory failure complication: hypoxia and hypercapnia Qualified Code(s): J96.01 - Acute respiratory failure with hypoxia; J96.02 - Acute respiratory failure with hypercapnia
[2018-12-15] MEDS: FOLIC ACID 1 MG TAB PO SCH (11:52)
[2018-12-15] MEDS ORDERED: CEFEPIME 1,000 MG in SYRINGE 0 ML IV ONE (12:00)
--- NOTE | 2018-12-15 13:32 | Pharmacy Report ---
Pharmacy Glycemic Short Note 2 - Date of Service December 15, 2018 - Glycemic Short BSG Results (Last 24 hours): 12/14/18 12/14/18 12/14/18 14:28 16:26 20:02 Glucose 126 H POC Glucose 126 H 167 H 12/14/18 12/15/18 12/15/18 23:33 00:16 04:10 Glucose 167 H POC Glucose 172 H 158 H 12/15/18 12/15/18 12/15/18 04:15 08:00 11:49 Glucose 157 H POC Glucose 147 H 137 H OUTPATIENT ANTIDIABETIC REGIMEN: * Lantus 12 units Q HS * A1c = 6.4% 12/02/18 ASSESSMENT: * Type 2 diabetic admitted for hypoxemic resp failure secondary to pulm edema +/- pneumonia * BSGs well controlled over last 24 hrs with current orders * Patient extubated this AM, tube feeds stopped (FT no longer in place) * Current insulin orders are reasonable to continue for another 24 hrs PLAN FOR INPATIENT GLYCEMIC CONTROL: * Basal insulin * Lantus 12 units SQ Q HS * Bolus insulin * NovoLog per scale ACHS or Q6hrs while NPO * Goal Range: Low 110 mg/dL - High 140 mg/dL * Correction Factor: 25 mg/dL/unit * Nutritional / Prandial insulin per carb ratio of 1 unit per 10 grams CHO consumed PLAN FOR DISCHARGE: * A1c at goal, may resume outpt Lantus regimen if not experiencing frequent hypoglycemia.
[2018-12-15 14:23] LABS: Partial Thromboplastin Ratio 2.7
[2018-12-15] MEDS: LINEZOLID 600 MG/300 ML BAG IV SCH (15:10)
--- NOTE | 2018-12-15 15:49 | Infectious Disease Consult ---
Date of Consultation December 15, 2018 Assessment & Plan (1) Abscess of right foot: 83-year-old female admitted with clinical picture of sepsis and pulmonary edema, with right foot infection with enterococcus, with small abscess and early osteitis, as well as possible pulmonary infection with elevated procalcitonin. For now pending further culture results, combination of Zyvox and cefepime appropriate. Will follow. (2) Enterococcal infection: (3) Severe sepsis: History of Present Illness Reason for Consultation: linezolid authorization, Enterococcus faecalis with high CEDRIC Attending Physician: Gino Colvin DO History of Present Illness 83-year-old female with complicated medical history including coronary artery disease, status post recent hospitalization for acute CA, diabetes mellitus, stage III chronic kidney disease, prior CVA, obstructive sleep apnea, who was admitted to the hospital with acute pulmonary edema with respiratory failure. Has history of nonhealing right foot plantar ulcer, with recent MRI scan showing evidence of soft tissue infection and osteitis but no destructive changes noted. Most recent culture has grown enterococcus. Also with Klebsiella in her urine. Has had elevated procalcitonin and has been started empirically on cefepime and recently Zyvox added. Currently with significant shortness of breath. Chest x- ray with fluid overload, unable to rule out infiltrate. Allergies Allergy/AdvReac Type Severity Reaction Status Date / Time amitriptyline Allergy Intermediate BLURRED Verified 12/14/18 00:19 DOUBLE VISION gabapentin Allergy Intermediate SHAKES,VISION Verified 12/14/18 00:19 CHANGES latex Allergy Intermediate SKIN GETS Verified 12/14/18 00:19 RAW-PT HAS NO RECOLLECTION meloxicam Allergy Intermediate DIARRHEA Verified 12/14/18 00:19 metformin Allergy Intermediate HOT FLASHES Verified 12/14/18 00:19 pregabalin Allergy Intermediate DIZZINESS, Verified 12/14/18 00:19 SLEEPY acetaminophen Allergy Mild SWEATING Verified 12/14/18 00:19 pioglitazone Allergy Mild SORE Verified 12/14/18 00:19 THROAT,EAts excessively Cipro Allergy Unknown itshiness,red Verified 06/25/16 17:42 streak ciprofloxacin Allergy Unknown itchiness,red Verified 12/14/18 00:19 streak guaifenesin Allergy Unknown UNKNOWN Verified 12/14/18 00:19 metronidazole Allergy Unknown UNKNOWN Verified 12/14/18 00:19 Penicillins Allergy Unknown INJECTION Verified 12/14/18 00:19 UNKNOWN rofecoxib Allergy Unknown UNKNOWN Verified 12/14/18 00:19 rosuvastatin Allergy Unknown UNKNOWN Verified 12/14/18 00:19 simvastatin Allergy Unknown UNKNOWN Verified 12/14/18 00:19 Sulfa (Sulfonamide Allergy Unknown HIVES Verified 12/14/18 00:19 Antibiotics) tramadol Allergy Unknown SWEATING Verified 12/14/18 00:19 Tricyclic Compounds Allergy Unknown ON WINDY Verified 12/14/18 00:19 [facility] Home Medications Home Medications Medication Instructions Recorded Confirmed Type atorvastatin 40 mg tablet 40 mg PO HS tab 06/28/18 12/14/18 History clopidogrel 75 mg tablet 75 mg PO QPM 06/28/18 12/14/18 History insulin glargine (U- 100) 100 12 units SQ HS ml 06/28/18 12/14/18 History unit/mL subcutaneous solution topiramate 25 mg tablet 25 mg PO QAM #30 tab 11/05/18 12/14/18 History cholecalciferol (vitamin D3) 1,000 unit PO QDL 12/01/18 12/14/18 History [Vitamin D3] gabapentin 100 mg PO QAM 12/01/18 12/14/18 History lisinopril 10 mg PO QAM 12/01/18 12/14/18 History pantoprazole [Protonix] 40 mg PO DAILYBB 12/01/18 12/14/18 History apixaban [Eliquis] 2.5 mg PO BID #60 tab 12/10/18 12/14/18 Rx docusate sodium 100 mg PO BID #60 cap 12/10/18 12/14/18 Rx furosemide 20 mg PO QAM #0 tab 12/10/18 12/14/18 Rx isosorbide mononitrate 30 mg PO QAM #30 tab 12/10/18 12/14/18 Rx polyethylene glycol 3350 [Miralax] 17 g PO BID #60 ea 12/10/18 12/14/18 Rx acetaminophen [Tylenol Extra 1,000 mg PO Q6H PRN 12/14/18 12/14/18 History Strength] folic acid 1 mg PO QDL 12/14/18 12/14/18 History linezolid 600 mg PO AMHS 12/14/18 12/14/18 History metoprolol succinate 200 mg PO QAM 12/14/18 12/14/18 History Patient History Medical History Chronic kidney disease, stage 3 (Chronic) HTN (hypertension) (Chronic) Myocardial infarction Diabetes mellitus with diabetic polyneuropathy (Acute) Ulcer of right heel (Acute) Anxiety associated with depression (Chronic) Benign recurrent vertigo (Chronic) Bilateral foot-drop (Chronic) Blood clotting disorder (Chronic) Chronic GERD (Chronic) Diabetes mellitus type 2 with complications, uncontrolled (Chronic) Gastritis (Chronic) H/O diastolic dysfunction (Chronic) H/O: CVA (cerebrovascular accident) (Chronic) Hyperlipidemia (Chronic) Hypokalemia (Chronic) Memory loss (Chronic) Nephropathy (Chronic) Neurologic gait dysfunction (Chronic) Osteoarthritis (Chronic) Polyarthritis (Chronic) Resting tremor (Chronic) Right lumbar radiculopathy (Chronic) Sleep apnea (Chronic) Stenosis of right carotid artery (Chronic) Urinary frequency (Chronic) Vitamin D deficiency (Chronic) Weight disorder (Chronic) Cataract (Resolved) Cholecystectomy planned (Resolved) H/O: hysterectomy (Resolved) Surgical History Hx of tonsillectomy (Resolved) S/P cholecystectomy S/P hysterectomy S/P tonsillectomy Family History Mother , in her 80s of a cerebral aneurysm Heart disease Stroke Tremor Father , in his 80s of heart disease Heart disease Other No pertinent family history Social History Preferred Language: Haitian Communication Ability: Unable Communication Ability Comment: INTUBATED. 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 [employer] Feels Safe at Home: Yes Smoking Status: Never smoker Hx Alcohol Use: No Hx Substance Use: No Review of Systems Constitutional: as per Subjective / HPI Eyes: no problem reported Ear, Nose, Mouth, Throat: no problem reported Respiratory: as per Subjective / HPI Cardiovascular: no chest pain Gastrointestinal: no problem reported Genitourinary: no problem reported Musculoskeletal: no problem reported Integumentary: as per Subjective / HPI Neurologic: no problem reported Psychiatric: no problem reported Endocrine: no problem reported Hematologic / Lymphatic: no problem reported Allergy / Immunological: no problem reported Physical Exam Constitutional: WD/WN, vitals as above + ill appearing Eyes: PERRL, conjunctivae normal, anicteric sclerae ENMT: external ear and nose normal, oropharynx normal Neck: trachea midline, no thyromegaly neck nontender Respiratory: normal respiratory effort, lungs clear to auscultation normal percussion; does not use accessory muscles Cardiovascular: Rate/Rhythm: regular rate and regular rhythm Heart Sounds: normal S1 and normal S2; no gallop, no murmur and no cardiac rub Vessels: normal peripheral pulses; no JVD Gastrointestinal (Abdomen): normal bowel sounds, soft, nontender, no hepatosplenomegaly Musculoskeletal: no cyanosis or clubbing, extremities motor strength 5/5 Spine: thoracic spine normal to inspection and lumbar spine normal to inspection; no cervical spinal tenderness Skin: no rashes, warm and dry normal turgor and + ulcer (Right foot plantar ulcer with some surrounding erythema and necrotic debris) Neurologic: patellar DTR's 2+ bilat, sensation intact no focal motor deficits Psychiatric: A+Ox3, euthymic affect Orientation: cooperative Lymphatic: no cervical or axillary lymphadenopathy no inguinal lymphadenopathy Results & Data Vital Signs (Past 12 Hours) Vital Signs Pulse Resp BP Pulse Ox 12/15/18 14:30 72 22 137/66 97 12/15/18 14:00 69 24 147/76 H 97 12/15/18 13:46 72 17 138/57 L 98 12/15/18 13:30 70 18 138/57 L 12/15/18 13:00 77 23 150/69 H 100 12/15/18 12:30 69 16 139/63 100 12/15/18 12:00 66 20 150/75 H 100 12/15/18 11:30 67 20 147/60 H 100 12/15/18 11:00 67 18 153/66 H 100 12/15/18 10:30 72 16 166/72 H 100 12/15/18 10:29 78 18 100 12/15/18 10:00 70 165/65 H 100 12/15/18 09:30 64 148/68 H 100 12/15/18 09:00 69 155/62 H 100 12/15/18 08:31 74 154/57 H 100 12/15/18 08:30 73 100 12/15/18 08:00 69 155/68 H 100 12/15/18 07:30 75 12 139/66 100 12/15/18 07:25 64 25 H 100 12/15/18 07:00 65 154/77 H 100 12/15/18 06:00 68 132/88 100 12/15/18 05:30 67 164/68 H 100 12/15/18 05:20 61 25 H 100 12/15/18 05:00 62 151/61 H 100 12/15/18 04:30 64 146/79 H 100 12/15/18 04:00 59 L 145/64 H 100 Laboratory Results [facility] 12/14/18 12/15/18 23:33 04:15 Sodium 131 L 132 L Potassium 4.6 D 4.4 Chloride 104 103 Carbon Dioxide 15 L 18 L BUN 46 H 46 H Creatinine 2.19 H 2.10 H Glucose 167 H 157 H Calcium 8.2 L 8.0 L Cardiac Enzymes 12/14/18 12/15/18 Range/Units 23:33 04:15 Troponin I 85.200 H* 64.400 H* (0-0.045) ng/ml Diagnostic Findings Microbiology 12/14/18 06:49 Blood Aerobic Blood Culture - Preliminary No growth in Aerobic bottle after 24 hours. 12/14/18 06:49 Blood Anaerobic Blood Culture - Final 12/14/18 Unknown Sputum,Vent Suction Gram Stain - Final 12/14/18 Unknown Sputum,Vent Suction Sputum Culture - Preliminary Scant normal jae present; Final report to follow. 12/14/18 01:20 Urine,Indwelling Cath Urine Culture - Preliminary Gram negative bacilli 12/14/18 06:59 Blood Aerobic Blood Culture - Preliminary No growth in Aerobic bottle after 24 hours. 12/14/18 06:59 Blood Anaerobic Blood Culture - Preliminary No growth in Anaerobic bottle after 24 hours. cc: ~ XR chest 1V portable CLINICAL HISTORY: pneumonia COMPARISON STUDY: 12/14/2018 FINDINGS: There is an endotracheal tube 3.5 cm above the mounika. There is a nasogastric tube with its tip in the stomach. The heart is mildly enlarged. Small pleural effusions are visualized. There is been marked improvement in the pulmonary edema pattern.[ IMPRESSION: 1. Resolving pulmonary edema 2. Small bilateral pleural effusions Electronically signed by: Dru Harmon M.D. 12/15/2018 7:03 AM Dictated: 12/15/18701 Transcribed: 12/15/18701 PG Care Time/CCT Total # of Minutes Spent Total Time Spent with Patient: Total time spent is greater than 50% in coordination of care (as documented) at patient's floor/unit and/or counseling patient:
--- NOTE | 2018-12-15 17:55 | Hospitalist Progress Note ---
Date of Service December 15, 2018 Assessment & Plan (1) Severe sepsis: due to pneumonia continue to treat with Cefepime and Linezolid afebrile, vitals improved appreciate ID consult (2) NSTEMI (non-ST elevated myocardial infarction): troponin markedly elevated, trending down now no chest pain had ST depressions and TW inversions in anteriolateral leads treat with heparin drip, antiplatelets, metoprolol cardiology following no plans for intervention at this time (3) Acute systolic heart failure: worsening of EF at 30-35% on echo yesterday evidence of pulmonary edema lungs are clearing up continue to maintain euvolemia metoprolol ordered cardiology following (4) Multifocal pneumonia: responding well to Cefepime and Linezolid no fever, breathing better, extubated today repeat CBC in the AM (5) Respiratory failure: due to both pneumonia and acute systolic heart failure intubated in the ED on admission extubated on 12/15/18 in the morning breathing well on 2L NC, has some mild stridor patient expressed her wishes to not be intubated if breathing deteriorates again (6) Multi-vessel coronary artery stenosis: Dyslipidemia Continue Lipitor, Plavix, metoprolol once safe to take PO heparin drip (7) 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, continue Zyvox (8) Hemianopia, homonymous, left: Supportive care Subjective patient extubated this morning after she did well on wean trial, she was on BIPAP and then weaned to nasal canula examined in the afternoon she is having some stridor and hoarse voice and she did not do well with bedside swallow test with RN, will ask speech therapy to see patient reviewed labs, Cr up slightly to 2.1, bicarb improved to 18 from 15 troponin peaked and trending down appreciate consults from ICU, ID and cardiology appreciate discussion with palliative care, patient expressed that she would want to be a DNR/DNI if she decompensates further Review of Systems Review of Systems: All systems reviewed & are unremarkable except as noted in HPI & below Constitutional: + fatigue and + weakness; no fever and no sweats Ear, Nose, Mouth, Throat: + sore throat and + hoarseness Respiratory: + cough and + dyspnea; no wheezing Cardiovascular: no chest pain and no edema Gastrointestinal: no abdominal pain, no nausea, no vomiting, no constipation and no diarrhea/loose stools Physical Exam Constitutional: WD/WN, vitals as above no acute distress Eyes: PERRL, conjunctivae normal, anicteric sclerae ENMT: external ear and nose normal, oropharynx normal (dry mucous membranes) Neck: trachea midline, no thyromegaly trachea midline (stridor on auscultation) Respiratory: normal respiratory effort, lungs clear to auscultation (decreased sounds in bases) Cardiovascular: RRR, no murmur, no edema Gastrointestinal (Abdomen): normal bowel sounds, soft, nontender, no hepatosplenomegaly Musculoskeletal: no cyanosis or clubbing, extremities motor strength 5/5 Skin: no rashes, warm and dry Neurologic: patellar DTR's 2+ bilat, sensation intact and PERRL, EOMI, accommodation nl, no face palsy, no dysarthria Psychiatric: A+Ox3, euthymic affect Lymphatic: no cervical or axillary lymphadenopathy Results & Data Vital Signs (Past 12 Hours) Vital Signs Pulse Resp BP Pulse Ox 12/15/18 14:30 72 22 137/66 97 12/15/18 14:00 69 24 147/76 H 97 12/15/18 13:46 72 17 138/57 L 98 12/15/18 13:30 70 18 138/57 L 12/15/18 13:00 77 23 150/69 H 100 12/15/18 12:30 69 16 139/63 100 12/15/18 12:00 66 20 150/75 H 100 12/15/18 11:30 67 20 147/60 H 100 12/15/18 11:00 67 18 153/66 H 12/15/18 10:30 72 16 166/72 H 100 12/15/18 10:29 78 18 100 12/15/18 10:00 70 165/65 H 100 12/15/18 09:30 64 148/68 H 100 12/15/18 09:00 69 155/62 H 100 12/15/18 08:31 74 154/57 H 100 12/15/18 08:30 73 100 12/15/18 08:00 69 155/68 H 100 12/15/18 07:30 75 12 139/66 12/15/18 07:25 64 25 H 100 12/15/18 07:00 65 154/77 H 100 12/15/18 06:00 68 132/88 100 Laboratory Results Laboratory Results - last 24 hr 12/14/18 12/14/18 12/14/18 20:02 23:33 23:33 APTT PTT Ratio Sample Site POC pH POC pCO2 POC pO2 POC HCO3 POC Total CO2 POC Base Excess ABG pH (Temp Correct) ABG pCO2 (Temp Corrct POC ABG pO2 at Pt Temp POC ABG O2 Sat Jorge Test O2 Delivery Device POC O2 Rate Minute Ventilation Tidal Volume PEEP Sodium 131 L Potassium 4.6 D Chloride 104 Carbon Dioxide 15 L Anion Gap 12.0 H BUN 46 H Creatinine 2.19 H Est Cr Clr Drug Dosing 18.5 Est GFR ( Amer) 23.6 Est GFR (Non-Af Amer) 20.3 BUN/Creatinine Ratio 21.2 H Glucose 167 H POC Glucose 167 H Lactate 1.6 Calcium 8.2 L Phosphorus Magnesium Troponin I 85.200 H* Random Vancomycin 12/14/18 12/15/18 12/15/18 23:46 00:16 04:10 APTT PTT Ratio Sample Site L Radial POC pH 7.36 POC pCO2 22 L POC pO2 112 H POC HCO3 13 L POC Total CO2 13 L POC Base Excess -13.0 L ABG pH (Temp Correct) 7.345 L ABG pCO2 (Temp Corrct 23 L POC ABG pO2 at Pt Temp 118 POC ABG O2 Sat 98.0 H Jorge Test Pass O2 Delivery Device Ventilator POC O2 Rate 25 Minute Ventilation 8.4 Tidal Volume 350 PEEP 5 Sodium Potassium Chloride Carbon Dioxide Anion Gap BUN Creatinine Est Cr Clr Drug Dosing Est GFR ( Amer) Est GFR (Non-Af Amer) BUN/Creatinine Ratio Glucose POC Glucose 172 H 158 H Lactate Calcium Phosphorus Magnesium Troponin I Random Vancomycin 12/15/18 12/15/18 12/15/18 04:15 04:15 04:15 APTT 94.3 H* PTT Ratio 3.5 Sample Site POC pH POC pCO2 POC pO2 POC HCO3 POC Total CO2 POC Base Excess ABG pH (Temp Correct) ABG pCO2 (Temp Corrct POC ABG pO2 at Pt Temp POC ABG O2 Sat Jorge Test O2 Delivery Device POC O2 Rate Minute Ventilation Tidal Volume PEEP Sodium 132 L Potassium 4.4 Chloride 103 Carbon Dioxide 18 L Anion Gap 11.0 BUN 46 H Creatinine 2.10 H Est Cr Clr Drug Dosing 19.3 Est GFR ( Amer) 24.8 Est GFR (Non-Af Amer) 21.4 BUN/Creatinine Ratio 21.7 H Glucose 157 H POC Glucose Lactate Calcium 8.0 L Phosphorus 4.3 D Magnesium 2.1 Troponin I Random Vancomycin 16.8 12/15/18 12/15/18 12/15/18 04:15 05:28 08:00 APTT PTT Ratio Sample Site L Radial POC pH 7.38 POC pCO2 22 L POC pO2 135 H POC HCO3 13 L POC Total CO2 14 L POC Base Excess -12.0 L ABG pH (Temp Correct) 7.385 ABG pCO2 (Temp Corrct 22 L POC ABG pO2 at Pt Temp 132 POC ABG O2 Sat 99.0 H Jorge Test Pass O2 Delivery Device Ventilator POC O2 Rate 25 Minute Ventilation 8.5 Tidal Volume 350 PEEP 5 Sodium Potassium Chloride Carbon Dioxide Anion Gap BUN Creatinine Est Cr Clr Drug Dosing Est GFR ( Amer) Est GFR (Non-Af Amer) BUN/Creatinine Ratio Glucose POC Glucose 147 H Lactate Calcium Phosphorus Magnesium Troponin I 64.400 H* Random Vancomycin 12/15/18 12/15/18 12/15/18 11:49 13:37 15:16 APTT 72.0 H* PTT Ratio 2.7 Sample Site POC pH POC pCO2 POC pO2 POC HCO3 POC Total CO2 POC Base Excess ABG pH (Temp Correct) ABG pCO2 (Temp Corrct POC ABG pO2 at Pt Temp POC ABG O2 Sat Jorge Test O2 Delivery Device POC O2 Rate Minute Ventilation Tidal Volume PEEP Sodium Potassium Chloride Carbon Dioxide Anion Gap BUN Creatinine Est Cr Clr Drug Dosing Est GFR ( Amer) Est GFR (Non-Af Amer) BUN/Creatinine Ratio Glucose POC Glucose 137 H 104 H Lactate Calcium Phosphorus Magnesium Troponin I Random Vancomycin Diagnostic Findings XR chest 1V portable IMPRESSION: 1. Resolving pulmonary edema 2. Small bilateral pleural effusions Medications Administered Current Inpatient Medications Acetaminophen (Tylenol) 1,000 mg PO Q6H PRN PRN Reason: Pain Stop: 01/13/19 05:54 Last Admin: 12/14/18 21:21 Dose: 1,000 mg Documented by: Atorvastatin Calcium (Lipitor) 40 mg PO HS MINDY Stop: 01/13/19 20:59 Last Admin: 12/14/18 20:24 Dose: 40 mg Documented by: Clopidogrel Bisulfate (Plavix) 75 mg PO QPM MINDY Stop: 01/13/19 20:59 Last Admin: 12/14/18 20:26 Dose: 75 mg Documented by: Dextrose (Dextrose 50%) 25 - 50 ml IV UD PRN; Protocol PRN Reason: Hypoglycemia Protocol Stop: 01/13/19 03:44 Docusate Sodium (Colace) 100 mg PO BID MINDY Stop: 01/13/19 20:59 Last Admin: 12/15/18 07:52 Dose: Not Given Documented by: Enteral Nutritional Formula (Impact 1.0 Gee) 1,000 ml OG UD MINDY; Protocol Stop: 01/13/19 11:59 Last Admin: 12/14/18 15:32 Dose: 1,000 ml Documented by: Folic Acid (Folvite) 1 mg PO QDL [facility] Stop: 01/13/19 11:29 Last Admin: 12/15/18 11:52 Dose: Not Given Documented by: Glucagon (Glucagen) 1 mg IM UD PRN; Protocol PRN Reason: Hypoglycemia Protocol Stop: 01/13/19 03:44 Glucose (Glucose 40%) 15 - 30 gm PO UD PRN; Protocol PRN Reason: Hypoglycemia Protocol Stop: 01/13/19 03:44 Glucose (Dex4 Glucose) 4 - 8 tabs PO UD PRN; Protocol PRN Reason: Hypoglycemia Protocol Stop: 01/13/19 03:44 Heparin Sodium/Dextrose (Heparin Sodium/Dextrose) 25,000 units in 500 mls @ 18 mls/hr IV .Q24H MINDY; Protocol Stop: 01/13/19 08:14 Last Titration: 12/15/18 14:28 Dose: 900 units/hr, 18 mls/hr Documented by: Famotidine 20 mg/ Syringe 5 mls @ 2.5 mls/min IV Q24H MINDY Stop: 01/15/19 08:59 Cefepime HCl 2,000 mg/ Syringe 20 mls @ 5 mls/min IV Q24H [facility] Stop: 12/23/18 23:59 Linezolid (Zyvox) 600 mg in 300 mls @ 200 mls/hr IV Q12H [facility] Stop: 12/25/18 15:59 Last Admin: 12/15/18 15:10 Dose: 200 mls/hr Documented by: Insulin Aspart (Novolog Flexpen) 0 units SC Q4H [facility]; Protocol Stop: 01/13/19 11:59 Last Admin: 12/15/18 15:17 Dose: Not Given Documented by: Insulin Glargine (Lantus Solostar Pen) 12 units SC HS [facility] Stop: 01/13/19 20:59 Last Admin: 12/14/18 20:42 Dose: 12 units Documented by: Metoprolol Tartrate (Lopressor) 5 mg IV Q8 [facility] Stop: 01/14/19 21:59 Miscellaneous (Carbohydrates For Hypoglycemia) 15 - 30 gm PO PRN PRN PRN Reason: Hypoglycemia Treatment Stop: 01/13/19 03:44 Miscellaneous Information (Consult Glycemic Management Pharmacy) 1 ea N/A UD PRN PRN Reason: Consult Stop: 01/13/19 04:42 Pantoprazole Sodium (Protonix) 40 mg PO DAILYBB [facility] Stop: 01/13/19 06:29 Last Admin: 12/14/18 07:52 Dose: Not Given Documented by: PG Care Time/CCT Total # of Minutes Spent Total Time Spent with Patient: Total time spent is greater than 50% in coordination of care (as documented) at patient's floor/unit and/or counseling patient: (1) Respiratory failure Chronicity: acute Respiratory failure complication: hypoxia and hypercapnia Qualified Code(s): J96.01 - Acute respiratory failure with hypoxia; J96.02 - Acute respiratory failure with hypercapnia
[2018-12-15] MEDS ORDERED: RACEPINEPHRINE 2.25% NEBU SOLN 0.5 ML VIAL NEB STA ×2 (18:41→22:00)
[2018-12-15] MEDS ORDERED: DEXAMETHASONE SOD PHOSPHATE 10 MG in SYRINGE 0 ML IV STA (18:42)
[2018-12-15] MEDS: INSULIN GLARGINE SOLOSTAR 100 UNITS/ML 3 ML PEN SC SCH (20:42)
[2018-12-15 21:08] LABS: Partial Thromboplastin Ratio 2.5
[2018-12-15] MEDS: METOPROLOL TARTRATE 1 MG/ML VIAL IV SCH (21:09)
[2018-12-15] MEDS: NITROGLYCERIN SL 0.4 MG/TAB TAB SL PRN ×3 (21:45→22:46)
--- NOTE | 2018-12-15 21:57 | Cardiology Progress Note ---
Date of Service December 15, 2018 Assessment & Plan (1) Respiratory failure: 2. Acute systolic heart failure 3. NSTEMI/critical multivessel coronary artery disease/Ischemic cardiomyopathy with apical akinesis --EF30-35% 4. Sepsis/pneumonia 5. 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 Cerebrovascular disease with ? left distal vertebral occlusion 7. RT heel ulcer/abscess 8. LE PAD - RT RAJAT 0.47, LT 0.81 (moderate distal SFA/popliteal stenosis, likely RT GUSTABO occlusion with reconstitution). 9. Acute on chronic renal insufficiency 10. Rheumatoid arthritis 11. Insulin-dependent diabetes 12. Hyponatremia Remarkably improved this afternoon from yesterday. Hemodynamically and electrically stable. Chest pain free and troponin peaked. Well perfused, minimal residual congestion. Reasonable urine output and stable SCr Along with active medical issues suspect RCA was culprit for most recent event. No plans for repeat catheterization or intervention. -- Can discontinue heparin infusion after 48 hrs -- Continue clopidogrel, add aspirin -- resume beta-eileen, imdur as BP allows. JADEN on hold -- continue statin -- Additional diuretics PRN Subjective Patient extubated this morning. Awake, talking answering questions appropriately only on nasal cannula this afternoon. Denies chest pain. Breathing still labored. Telemetry unremarkable SCr stable. Chest xray improved. Reasonable urine output off diuretics Troponin peaked. Echo with apical akinesis, more prominent inferior hypokinesis Review of Systems Review of Systems: All systems reviewed & are unremarkable except as noted in HPI & below Physical Exam Physical Exam: General: No distress, nasal cannula in place Eyes: Sclerae anicteric, Neck: No JVD Lungs: Coarse breath sounds throughout Cardiac: Regular rate no murmurs Abdomen: Soft, nontender Extremities: Well perfused, upper extremities and waffle boots, ulcers dressed. No significant edema Psych: Alert oriented Results & Data Vital Signs (Past 12 Hours) Vital Signs Pulse Pulse Resp BP Pulse Ox 12/15/18 21:09 97 H 187/87 H 12/15/18 18:58 77 21 99 12/15/18 17:30 78 21 141/87 H 98 12/15/18 17:00 77 24 148/66 H 97 12/15/18 16:30 78 22 156/66 H 100 12/15/18 16:00 72 22 143/67 H 100 12/15/18 15:30 71 26 H 141/64 H 100 12/15/18 15:00 73 22 136/72 100 12/15/18 14:30 72 22 137/66 97 12/15/18 14:00 69 24 147/76 H 97 12/15/18 13:46 72 17 138/57 L 98 12/15/18 13:30 70 18 138/57 L 12/15/18 13:00 77 23 150/69 H 100 12/15/18 12:30 69 16 139/63 12/15/18 12:00 66 20 150/75 H 100 12/15/18 11:30 67 20 147/60 H 100 12/15/18 11:00 67 18 153/66 H 12/15/18 10:30 72 16 166/72 H 12/15/18 10:29 78 18 12/15/18 10:00 70 165/65 H 100 PG Care Time/CCT Total # of Minutes Spent Total Time Spent with Patient: Total time spent is greater than 50% in coordination of care (as documented) at patient's floor/unit and/or counseling patient: (1) Respiratory failure Chronicity: acute Respiratory failure complication: hypoxia and hypercapnia Qualified Code(s): J96.01 - Acute respiratory failure with hypoxia; J96.02 - Acute respiratory failure with hypercapnia
[2018-12-15] MEDS: NITROGLYCERIN 2% OINTMENT 30GM TUBE EXT SCH (23:37)
[2018-12-16] MEDS: LINEZOLID 600 MG/300 ML BAG IV SCH (03:40)
[2018-12-16] MEDS: dexAMETHasone 6 MG in SYRINGE 0 ML IV SCH ×2 (03:41→12:23)
[2018-12-16] MEDS: INSULIN ASPART 100 UNITS/ML 3 ML PEN SC SCH ×3 (03:59→14:09)
[2018-12-16 04:35] LABS: Partial Thromboplastin Ratio 2.1
[2018-12-16 04:38] LABS: BUN Creatinine Ratio 24.5 (10-20); Calcium 8.4 mg/dl (8.5-10.1); Creatinine Clr Calc Pharmacy 24.1 ml/min; Est GFR (African American) 32.5; Magnesium 2.3 mg/dl (1.8-2.4); Phosphorus 4.1 mg/dl (2.5-4.9); Potassium 4.4 mmol/L (3.5-5.1)
[2018-12-16] MEDS: NITROGLYCERIN 2% OINTMENT 30GM TUBE EXT SCH ×4 (04:40→22:34)
[2018-12-16] MEDS: METOPROLOL TARTRATE 1 MG/ML VIAL IV SCH (04:52)
[2018-12-16 04:56] LABS: Partial Thromboplastin Time 57.6 Seconds (21.0-31.0)
[2018-12-16 05:06] LABS: Basophils # (auto) 0.02 K/uL (0-0.2); Basophils % (auto) 0.2 %; Hematocrit (blood only) 32.1 % (37-47); Hemoglobin 10.7 g/dL (12.0-16.0); Immature Granulocytes # (auto) 0.03 K/uL (0.00-0.02); Immature Granulocytes % (auto) 0.3 %; Lymphocytes # (auto) 0.32 K/uL (1.2-3.4); Lymphocytes % (auto) 2.8 %; Mean Corpuscular Hemoglobin 30.4 pg (25-34); Mean Corpuscular Hgb Conc 33.3 g/dL (32-36); Mean Corpuscular Volume 91.2 fL (80-100); Mean Platelet Volume 9.9 fL (7.4-10.4); Monocytes # (auto) 0.11 K/uL (0.11-0.59); Neutrophils # (auto) 10.83 K/uL (1.4-6.5); Neutrophils % (auto) 95.7 %; Platelet Count 325 K/uL (130-400); RDW Standard Deviation 46.7 fL (36.4-46.3); Red Blood Count 3.52 M/uL (4.2-5.4); White Blood Count 11.31 K/uL (4.8-10.8)
[2018-12-16] MEDS ORDERED: MoRPHine SULFATE 2 MG/ML CARP IV STA ×3 (05:35→08:16)
[2018-12-16] MEDS ORDERED: MoRPHine SULFATE 2 MG/ML CARP ONE ×2 (05:38→08:24)
[2018-12-16] MEDS ORDERED: BUMETANIDE 2 MG in SYRINGE 0 ML IV ONE (06:08)
--- NOTE | 2018-12-16 06:23 | XRay Report ---
XR chest 1V portable CLINICAL HISTORY: Shortness of breath COMPARISON STUDY: 12/15/2018 FINDINGS: The heart is mildly enlarged. There is radiographic evidence of pulmonary edema. Right uppe r lobe airspace opacities likely reflect focal alveolar edema. There are trace pleural effusions. Adv anced arthritic changes are present within the shoulders.[ IMPRESSION: Pulmonary edema pattern. Electronically signed by: Dru Harmon M.D. 12/16/2018 6:22 AM
--- NOTE | 2018-12-16 07:21 | Critical Care Progress Note ---
Date of Service December 16, 2018 Assessment & Plan (1) Admitted to intensive care unit: Reason Critically Ill: 83-year-old female here for acute pulmonary edema with hypoxemia necessitating intubation. Past medical history significant for recent stress-induced cardiomyopathy, CAD, recent ND/non-STEMI, CVA, diabetes mellitus with diabetic foot ulcer likely right foot abscess that grew Enterococcus faecalis and coagulase-negative staph last admission, anemia, chronic kidney disease stage III, peripheral arterial disease, stage II pressure ulcer present on admission, essential hypertension, dyslipidemia, obstructive sleep apnea, diabetic polyneuropathy, homonymous hemianopia secondary to CVA suspected LV thrombus as a source of embolic CVA Palliative: Palliative care consulted for assistance in end of life care and goals of care decision making. Following their recommendations. -CODE STATUS-patient currently DNR _>Comfort care Neuro: -CAM ICU: Negative History of AMS versus cognitive impairment, Cardiac: ACS: Patient was recently hospitalized for an an STEMI cardiac catheterization at that time revealed severe complex multivessel coronary artery disease. The patient is not thought to be a surgical candidate due to multiple comorbidities. CAD is medically managed. Echo showed moderate LV dysfunction with apical akinesis and there is a concern for stress-induced cardiomyopathy. Status post cardiac catheterization she experienced bilateral occipital strokes. She has been on anticoagulation for potential thrombus. -Currently resolving troponins peaked and trending down -Cardiology consulted following recommendations -Medical management for coronary artery disease and heart failure -Heparin infusion -Clopidogrel, start aspirin -Additional diuresis with either bolus or loop diuretics -If you UOP does not improve may need a trial of inotropes -On atorvastatin 40 mg Respiratory: Acute respiratory failure with hypoxemia secondary to pulmonary edema Patient appears to have had an acute exacerbation of her chronic systolic heart failure. She was unable to maintain oxygenation on presentation and was subsequently intubated. She remains sedated sedated and intubated. -Pulmonary edema worsened overnight without intubation support -Monitor I's and O's Pneumonia Patient's chest x-ray is consistent with pneumonia. She has an elevated procalcitonin,Elevated white count, lactate is improving -Blood and urine and sputum cultures pending -History of coag negative staph and E faecalis on her right foot -Patient placed on empiric cefepime plan to narrow pending cultures -Received a dose of Vanco in the ED GI: Consult dietary for enteral nutrition Famotidine IV for GI prophylaxis RENAL/LYTES: Hyponatremia: May be secondary to fluid resuscitation versus diuretic therapy -Replace lytes as needed. LEEANN Baseline creatinine appears to be 1.4, currently 1.68 -Monitor in the setting of aggressive diuretic therapy : - No concerns at this time. ENDO: History of diabetes type 2 -ICU hypoglycemia protocol in place -Glycemic consult placed HEME: - Stable H&H. -Will monitor for any drops in the setting of Heparin gtt ID: Pneumonia See above, given patient's recent culture history transition back to Zyvox Pressure ulcers Numerous potential sites for infections, monitor for signs and symptoms of development of cellulitis and/or infection. -Monitor fever curve. INTEGUMENTARY: -No acute concerns at present LINES/IV ACCESS: -PIVs intact. DVT PROPHYLAXIS: -Heparin gtt. Dispo: [facility] for comfort care Thank you for allowing us to be part of this patient's care. Please refer to Dr. Gonsales's documentation for any further recommendations. (2) Acute systolic heart failure: (3) Severe sepsis: (4) Palliative care encounter: (5) Multifocal pneumonia: (6) Pulmonary edema: (7) Acute kidney injury: (8) Palliative care encounter: Supervising Physician Co-Signing Physician Notes Dr. Martinez was the resident-physician during care of patient. I separately evaluated patient for ruiz portions of the history and the exam. I was present during the critical portion of medical decision making, and I discussed the case with the resident. I generally agree with the findings and plan except for any additions/exceptions noted. This morning patient appears to be in more respiratory distress. She is hypertensive. She received 2 mg of IV Bumex. She is currently on BiPAP and still feeling quite short of breath. I discussed with her about her CODE STATUS yesterday and she was made DNR/DNI. We discussed further regarding her CODE STATUS and her goals of care and she has made the decision to go ahead and pursue comfort/hospice care. Her was also in the room and indicated to me numerous times that he would prefer to make her comfortable. She adamantly stated that she does not want a breathing tube in place and that she wants to focus on her shortness of breath and her comfort. We will go ahead and call palliative care so they can see her and give her morphine now for symptom control. I have personally spent 40 minutes of critical care time in the direct management of this patient. This is a life/limb threatening event. This includes time spent evaluating patient, direct bedside care, chart review, placing orders, interpretation of diagnostic studies, discussion with consultants, patient, and/or family members regarding treatment decisions, as well as other required patient management activities. This time is exclusive of all separately billable procedures, and teaching time and separate from and in addition to any other critical care service time. Subjective Patient continuing to need BiPAP for supportive care, prognosis is poor at this point. Patient's family at bedside increasing respiratory distress, uncomfortable appearing ,chest x-ray is significantly worse than yesterday. Had extensive discussion with the patient's family regarding goals of care and with the patient as well. They stated explicitly that they would like to make her comfort care at this point "they do not want her to feel any more pain". Morphine was provided to ease respiratory distress, patient still had BiPAP in place. Patient to be made comfort care and transferred to [facility]. All questions answered, no acute concerns. Physical Exam Physical Exam: General: No acute distress, on BiPAP HEENT: Normal cephalic atraumatic Neck: Trachea midline, normal visual inspection Cardiac:Regular and rhythm I do not appreciate murmurs rubs or gallops, normal S1, normal S2, negative calf tenderness, negative pedal edema Respiratory: On BiPAP, diminished lung sounds GI: Normal bowel sounds, soft, nontender, nondistended MSK: Moves extremities Skin: Warm dry and intact Neuro: Alert Psych: Cooperative Results & Data Vital Signs (Past 12 Hours) Vital Signs Temp Pulse Pulse Resp BP BP Pulse Ox 12/16/18 06:00 123 H 34 H 182/98 H 94 12/16/18 05:25 116 H 31 H 94 12/16/18 04:52 106 H 179/106 H 12/16/18 04:00 37.2 C 85 18 158/76 H 98 12/16/18 02:00 87 20 139/72 94 12/16/18 01:32 86 19 96 12/16/18 00:00 37.4 C 87 18 148/65 H 97 12/15/18 22:12 88 20 96 12/15/18 22:00 84 20 125/67 93 12/15/18 21:09 97 H 187/87 H 12/15/18 20:00 37.7 C H 96 H 20 183/87 H 96 PG Care Time/CCT Total # of Minutes Spent Total Time Spent with Patient: Total time spent is greater than 50% in coordination of care (as documented) at patient's floor/unit and/or counseling patient: Critical Care Time: Yes Total Critical Care Time: 40 (1) Pulmonary edema Chronicity: acute Qualified Code(s): J81.0 - Acute pulmonary edema
[2018-12-16] MEDS ORDERED: HydrALAZINE HCL 20 MG/ML VIAL IV STA (08:03)
[2018-12-16] MEDS ORDERED: FAMOTIDINE 20 MG in SYRINGE 3 ML IV SCH (09:00)
[2018-12-16] MEDS ORDERED: INSULIN GLARGINE SOLOSTAR 100 UNITS/ML 3 ML PEN SC SCH (09:00)
--- NOTE | 2018-12-16 10:25 | Palliative Care Progress Note ---
Date of Service December 16, 2018 Assessment & Plan (1) Palliative care encounter: Patient is an 83-year-old female with a past medical history significant for hypertension CKD diabetes with polyneuropathy, CVA x2, ERNST-CPAP, spinal stenosis, vertebral artery stenosis, right ICA stenosis and multivessel CAD who was recently hospitalized here from 12/02 - 12/10 for a non-STEMI. 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 Patient was placed on Eliquis and Plavix with a plan to repeat echo in 1 month. During her hospital stay patient was found to have a suspected embolic CVA-she had bilateral occipital infarct right greater than left. Patient was discharged on 12/10 to [facility] for rehab. Patient had been doing well until the evening of 12/13 when she began having acute onset of shortness of breath and chest pain after dinner-patient was brought by EMS to the emergency room. Patient's sats were 85%-she was placed on CPAP and her sats decreased to 60%. Patient required intubation in the emergency room and is admitted to the ICU. Palliative Care was consulted to discuss goals of care. -I met with patient and multiple family members at the beside including her , daughter, two grandchildren and in-laws. -Early this morning, patient started to have chest pain and respiratory distress and was hypertensive. A trial of Bumex was administered and she was placed back on BiPap. -Patient able to open eyes and communicate. Confirmed she does NOT want to be reintubated and to remain a DNR/DNI. -Family appropriately tearful. Confirmed progression and evaluation of her breathing and methods to keep her comfortable. -Patient has Morphine 2mg IV Q4 PRN ordered. Low threshold to increase frequency as needed. Should she require multiple doses, low threshold for starting a Morphine gtt. -Should patient stabilize she has a goal to return home with Hospice services, which the and daughter support. Case management aware and provided them with a Hospice agency list, along with a supplemental private care list yesterda y. -I do not anticipate patient will be able to be discharged from the hospital. At this time, I do not feel she is GIP appropriate as her symptoms are being easily managed. -Family asked timeframe for life expectancy. Patient still mentating and making urine. As her breathing decompensates, I anticipate days up to weeks depending on how she responds to symptom management medications. -If patient stabilizes to discharge, would be beneficial to have a POLST form completed prior to discharge. -Patient was then transferred to room 254 under comfort measures. -PPS: 20% (2) Respiratory failure: (3) Pulmonary edema: (4) Stress-induced cardiomyopathy: (5) Multi-vessel coronary artery stenosis: (6) NSTEMI (non-ST elevated myocardial infarction): (7) Acute kidney injury: (8) Chronic kidney disease, stage 3: (9) Diabetic foot ulcer associated with type 2 diabetes mellitus: Subjective Patient extubated yesterday morning. Awake, talking answering questions appropriately only on nasal cannula in the afternoon yesterday, but decompensated overnight with SOB and chest pain. Patient went back on Bipap. Confirmed DNR Family decided to transition to TIMBER GIRDLER this morning. See A/P for further details. Review of Systems Review of Systems: All systems reviewed & are unremarkable except as noted in HPI & below Physical Exam Constitutional: well developed, cooperative and comfortable Eyes: PERRL, conjunctivae normal, anicteric sclerae ENMT: external ear and nose normal, oropharynx normal Respiratory: + labored breathing Auscultation: + rhonchi Cardiovascular: RRR, no murmur, no edema Gastrointestinal (Abdomen): normal bowel sounds, soft, nontender, no hepatosplenomegaly Psychiatric: A+Ox3, euthymic affect Insight: good insight Judgement: good judgement Results & Data Vital Signs (Past 12 Hours) Vital Signs Temp Pulse Pulse Resp BP BP Pulse Ox 12/16/18 09:00 90 21 152/67 H 100 12/16/18 08:00 104 H 29 H 147/91 H 97 12/16/18 07:35 109 H 32 H 96 12/16/18 07:00 119 H 34 H 172/96 H 94 12/16/18 06:00 123 H 34 H 182/98 H 94 12/16/18 05:25 116 H 31 H 94 12/16/18 04:52 106 H 179/106 H 12/16/18 04:00 37.2 C 85 18 158/76 H 98 12/16/18 02:00 87 20 139/72 94 12/16/18 01:32 86 19 96 12/16/18 00:00 37.4 C 87 18 148/65 H 97 Supervising Physician Co-Signing Physician Notes Patient seen and examined, collaborated with SEYMOUR Lunsford Patient seen in room 254-patient has been extubated to BiPAP and is currently on 3 L of O2. Patient's , daughter, son-in-law at bedside. PE: Patient awake and alert, no acute distress-eating ice cream. HEENT: EOMI, very [place] Respirations slightly labored with speech, reports comfortable on O2 at 3 L CV: Regular rate Abdomen: Soft, nontender Neuro: Alert and oriented x4 Patient restated that she would not want to be reintubated, even after doing well at home for several months if she would require it again she would not want to be reintubated. Family present and supportive of her decision. Agree with above note, assessment and plan as per SEYMOUR Lunsford. Will continue to follow and assist with medical decision making. Patient appears to continue to improve PG Care Time/CCT Total # of Minutes Spent Total Time Spent with Patient: Total time spent is greater than 50% in coordination of care (as documented) at patient's floor/unit and/or counseling patient: 35 Time Spent Midlevel Total time spent 35 mintues with > 50% of that time spent assessing the patient, discussing goals of care and end - of- life anticipation. (1) Diabetic foot ulcer associated with type 2 diabetes mellitus Diabetic foot ulcer location: heel Laterality: right Non-pressure ulcer stage: with fat layer exposed Qualified Code(s): E11.621 - Type 2 diabetes mellitus with foot ulcer; L97.412 - Non-pressure chronic ulcer of right heel and midfoot with fat layer exposed (2) Pulmonary edema Chronicity: acute Qualified Code(s): J81.0 - Acute pulmonary edema (3) Respiratory failure Chronicity: acute Respiratory failure complication: hypoxia and hypercapnia Qualified Code(s): J96.01 - Acute respiratory failure with hypoxia; J96.02 - Acute respiratory failure with hypercapnia
[2018-12-16] MEDS ORDERED: CEFEPIME 2,000 MG in SYRINGE 7.5 ML IV SCH (12:00)
[2018-12-16] MEDS ORDERED: INSULIN ASPART 100 UNITS/ML 3 ML PEN SC SCH (12:24)
[2018-12-16] MEDS ORDERED: MoRPHine SULFATE 2 MG/ML CARP IV PRN (12:25)
--- NOTE | 2018-12-16 17:19 | Infectious Disease Progress Nt ---
Date of Service December 16, 2018 Assessment & Plan (1) Severe sepsis: 83-year-old female admitted with sepsis, pulmonary edema, and enterococcal infection of her foot. Patient now has been transitioned to comfort care and all antibiotics discontinued. Therefore will discontinue ID follow-up but we are available if any further input is requested. (2) Abscess of right foot: (3) Enterococcal infection: Subjective Patient extubated yesterday morning. Awake, talking answering questions appropriately only on nasal cannula in the afternoon yesterday, but decompensated overnight with SOB and chest pain. Patient went back on Bipap. Confirmed DNR Family decided to transition to SENIOR CAREGIVER this morning. See A/P for further details. Review of Systems Review of Systems: Unobtainable due to cognitive status Physical Exam Constitutional: WD/WN, vitals as above + ill appearing Eyes: PERRL, conjunctivae normal, anicteric sclerae ENMT: external ear and nose normal, oropharynx normal Neck: trachea midline, no thyromegaly neck nontender Respiratory: normal respiratory effort, lungs clear to auscultation normal percussion; does not use accessory muscles Cardiovascular: Rate/Rhythm: regular rate and regular rhythm Heart Sounds: normal S1 and normal S2; no gallop, no murmur and no cardiac rub Vessels: normal peripheral pulses; no JVD Gastrointestinal (Abdomen): normal bowel sounds, soft, nontender, no hepatosplenomegaly Musculoskeletal: no cyanosis or clubbing, extremities motor strength 5/5 Spine: thoracic spine normal to inspection and lumbar spine normal to inspection; no cervical spinal tenderness Skin: no rashes, warm and dry normal turgor and + ulcer (Right foot plantar ulcer with some surrounding erythema and necrotic debris) Neurologic: patellar DTR's 2+ bilat, sensation intact no focal motor deficits Psychiatric: A+Ox3, euthymic affect Orientation: cooperative Lymphatic: no cervical or axillary lymphadenopathy no inguinal lymphadenopathy Results & Data Vital Signs (Past 12 Hours) Vital Signs Pulse Pulse Resp BP BP Pulse Ox 12/16/18 11:29 90 21 100 12/16/18 09:00 90 21 152/67 H 100 12/16/18 08:00 104 H 29 H 147/91 H 97 12/16/18 07:35 109 H 32 H 96 12/16/18 07:00 119 H 34 H 172/96 H 94 12/16/18 06:00 123 H 34 H 182/98 H 94 12/16/18 05:25 116 H 31 H 94 Laboratory Results Short CBC 12/16/18 Range/Units 03:49 WBC 11.31 H (4.8-10.8) K/uL Hgb 10.7 L (12.0-16.0) g/dL Hct 32.1 L (37-47) % Plt Count 325 (130-400) K/uL BMP 12/16/18 03:49 Sodium 134 L Potassium 4.4 Chloride 107 Carbon Dioxide 17 L BUN 41 H Creatinine 1.68 H D Glucose 168 H Calcium 8.4 L Cardiac Enzymes 12/15/18 Range/Units 23:18 Troponin I 16.600 H* (0-0.045) ng/ml Diagnostic Findings Microbiology 12/14/18 Unknown Sputum,Vent Suction Gram Stain - Final 12/14/18 Unknown Sputum,Vent Suction Sputum Culture - Final Light normal jae. 12/14/18 01:20 Urine,Indwelling Cath Urine Culture - Final Klebsiella pneumoniae 12/14/18 06:49 Blood Aerobic Blood Culture - Preliminary No growth in Aerobic bottle after 48 hours. 12/14/18 06:49 Blood Anaerobic Blood Culture - Final 12/14/18 06:59 Blood Aerobic Blood Culture - Preliminary No growth in Aerobic bottle after 48 hours. 12/14/18 06:59 Blood Anaerobic Blood Culture - Preliminary No growth in Anaerobic bottle after 48 hours. XR chest 1V portable CLINICAL HISTORY: Shortness of breath COMPARISON STUDY: 12/15/2018 FINDINGS: The heart is mildly enlarged. There is radiographic evidence of pulmonary edema. Right upper lobe airspace opacities likely reflect focal alveolar edema. There are trace pleural effusions. Advanced arthritic changes are present within the shoulders.[ IMPRESSION: Pulmonary edema pattern. Electronically signed by: Dru Harmon M.D. 12/16/2018 6:22 AM Dictated: 12/16/18620 Transcribed: 12/16/18620 PG Care Time/CCT Total # of Minutes Spent Total Time Spent with Patient: Total time spent is greater than 50% in coordinat ion of care (as documented) at patient's floor/unit and/or counseling patient:
--- NOTE | 2018-12-16 22:17 | Hospitalist Progress Note ---
Date of Service December 16, 2018 Assessment & Plan (1) Severe sepsis: due to pneumonia treated with Cefepime and Linezolid initially some response with improvement in respiratory status, no fever, vitals stabilized however, due to chest pain, worsening breathing today she wants comfort only stop antibiotics. no further lab draws (2) NSTEMI (non-ST elevated myocardial infarction): troponin markedly elevated, trended down had ST depressions and TW inversions in anteriolateral leads treated with heparin drip, antiplatelets, metoprolol patient with crushing chest pain and more respiratory distress this morning she wanted to be comfort only use Morphine PRN, use Nitro paste PRN as it help chest pain this morning no further tele monitoring, hep drip stopped (3) Acute systolic heart failure: worsening of EF at 30-35% on echo, akinesis of apex, hypokinesis of other kumar, likely RCA infarct evidence of pulmonary edema, worse on CXR this AM comfort care (4) Multifocal pneumonia: responded well to Cefepime and Linezolid no fever, extubated on 12/15 change to comfort (5) Respiratory failure: due to both pneumonia and acute systolic heart failure intubated in the ED on admission extubated on 12/15/18 in the morning breathing well on 2L NC patient expressed her wishes to not be intubated if breathing deteriorates again now full comfort care (6) Multi-vessel coronary artery stenosis: (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, homonymous, left: Supportive care Subjective patient had a difficult night, she experienced severe chest pain and dyspnea and tachycardia the chest pain was eventually relieved with nitro paste and Morphine she experienced respiratory relief from being placed on BIPAP reviewed labs, WBC up slightly to 12k, Cr down to 1.68, HCO3 down to 17 palliative care had a long discussion with the patient and her extended family at the bedside she voiced her wishes again to be DNR, and she wanted to just be comfortable family agreed with her wishes she was transferred to the medical floor on comfort measures Review of Systems Review of Systems: All systems reviewed & are unremarkable except as noted in HPI & below Constitutional: + fatigue and + weakness; no fever Respiratory: + dyspnea; no cough Cardiovascular: + chest pain, + chest pain at rest and + dyspnea; no edema Gastrointestinal: no abdominal pain, no nausea, no vomiting, no constipation and no diarrhea/loose stools Physical Exam 2 Constitutional: WD/WN, vitals as above no acute distress Eyes: PERRL, conjunctivae normal, anicteric sclerae ENMT: external ear and nose normal, oropharynx normal (dry mucous membranes) Neck: trachea midline, no thyromegaly Respiratory: normal respiratory effort, lungs clear to auscultation (decreased sounds in bases) Cardiovascular: RRR, no murmur, no edema Gastrointestinal (Abdomen): normal bowel sounds, soft, nontender, no hepatosplenomegaly Musculoskeletal: no cyanosis or clubbing, extremities motor strength 5/5 Skin: no rashes, warm and dry Neurologic: patellar DTR's 2+ bilat, sensation intact and PERRL, EOMI, accommodation nl, no face palsy, no dysarthria Psychiatric: A+Ox3, euthymic affect Lymphatic: no cervical or axillary lymphadenopathy Results & Data Vital Signs (Past 12 Hours) Vital Signs Pulse Resp Pulse Ox 12/16/18 11:29 90 21 100 Laboratory Results Laboratory Results - last 24 hr 12/15/18 12/15/18 12/16/18 23:18 23:33 03:49 WBC RBC Hgb Hct MCV MCH MCHC RDW Std Deviation RDW Coeff of Ciera Plt Count MPV Immature Gran % (Auto) Neut % (Auto) Lymph % (Auto) [place] % (Auto) Eos % (Auto) Baso % (Auto) Immature Gran # (Auto) Neut # (Auto) Lymph # (Auto) [place] # (Auto) Eos # (Auto) Baso # (Auto) APTT PTT Ratio Sodium 134 L Potassium 4.4 Chloride 107 Carbon Dioxide 17 L Anion Gap 10.0 BUN 41 H Creatinine 1.68 H D Est Cr Clr Drug Dosing 24.1 Est GFR ( Amer) 32.5 Est GFR (Non-Af Amer) 28.0 BUN/Creatinine Ratio 24.5 H Glucose 168 H POC Glucose 149 H Calcium 8.4 L Phosphorus 4.1 Magnesium 2.3 Troponin I 16.600 H* Procalcitonin 12/16/18 12/16/18 12/16/18 03:49 03:49 03:49 WBC 11.31 H RBC 3.52 L Hgb 10.7 L Hct 32.1 L MCV 91.2 MCH 30.4 MCHC 33.3 RDW Std Deviation 46.7 H RDW Coeff of Ciera 14.0 Plt Count 325 MPV 9.9 Immature Gran % (Auto) 0.3 Neut % (Auto) 95.7 Lymph % (Auto) 2.8 [place] % (Auto) 1.0 Eos % (Auto) 0.0 Baso % (Auto) 0.2 Immature Gran # (Auto) 0.03 H Neut # (Auto) 10.83 H Lymph # (Auto) 0.32 L [place] # (Auto) 0.11 Eos # (Auto) 0.00 Baso # (Auto) 0.02 APTT 57.6 H* PTT Ratio 2.1 Sodium Potassium Chloride Carbon Dioxide Anion Gap BUN Creatinine Est Cr Clr Drug Dosing Est GFR ( Amer) Est GFR (Non-Af Amer) BUN/Creatinine Ratio Glucose POC Glucose Calcium Phosphorus Magnesium Troponin I Procalcitonin 22.99 H 12/16/18 12/16/18 03:53 08:03 WBC RBC Hgb Hct MCV MCH MCHC RDW Std Deviation RDW Coeff of Ciera Plt Count MPV Immature Gran % (Auto) Neut % (Auto) Lymph % (Auto) [place] % (Auto) Eos % (Auto) Baso % (Auto) Immature Gran # (Auto) Neut # (Auto) Lymph # (Auto) [place] # (Auto) Eos # (Auto) Baso # (Auto) APTT PTT Ratio Sodium Potassium Chloride Carbon Dioxide Anion Gap BUN Creatinine Est Cr Clr Drug Dosing Est GFR ( Amer) Est GFR (Non-Af Amer) BUN/Creatinine Ratio Glucose POC Glucose 165 H 265 H Calcium Phosphorus Magnesium Troponin I Procalcitonin Diagnostic Findings XR chest 1V portable CLINICAL HISTORY: Shortness of breath COMPARISON STUDY: 12/15/2018 FINDINGS: The heart is mildly enlarged. There is radiographic evidence of pulmonary edema. Right upper lobe airspace opacities likely reflect focal alveolar edema. There are trace pleural effusions. Advanced arthritic changes are present within the shoulders.[ IMPRESSION: Pulmonary edema pattern. Medications Administered Current Inpatient Medications Acetaminophen (Tylenol) 1,000 mg PO Q6H PRN PRN Reason: Pain Stop: 01/13/19 05:54 Last Admin: 12/14/18 21:21 Dose: 1,000 mg Documented by: Atorvastatin Calcium (Lipitor) 40 mg PO HS MINDY Stop: 01/13/19 20:59 Last Admin: 12/14/18 20:24 Dose: 40 mg Documented by: Clopidogrel Bisulfate (Plavix) 75 mg PO QPM MINDY Stop: 01/13/19 20:59 Last Admin: 12/14/18 20:26 Dose: 75 mg Documented by: Dextrose (Dextrose 50%) 25 - 50 ml IV UD PRN; Protocol PRN Reason: Hypoglycemia Protocol Stop: 01/13/19 03:44 Docusate Sodium (Colace) 100 mg PO BID MINDY Stop: 01/13/19 20:59 Last Admin: 12/15/18 07:52 Dose: Not Given Documented by: Folic Acid (Folvite) 1 mg PO QDL MINDY Stop: 01/13/19 11:29 Last Admin: 12/15/18 11:52 Dose: Not Given Documented by: Glucagon (Glucagen) 1 mg IM UD PRN; Protocol PRN Reason: Hypoglycemia Protocol Stop: 01/13/19 03:44 Glucose (Glucose 40%) 15 - 30 gm PO UD PRN; Protocol PRN Reason: Hypoglycemia Protocol Stop: 01/13/19 03:44 Glucose (Dex4 Glucose) 4 - 8 tabs PO UD PRN; Protocol PRN Reason: Hypoglycemia Protocol Stop: 01/13/19 03:44 Miscellaneous (Carbohydrates For Hypoglycemia) 15 - 30 gm PO PRN PRN PRN Reason: Hypoglycemia Treatment Stop: 01/13/19 03:44 Morphine Sulfate (Morphine Sulfate) 2 mg IV Q4H PRN PRN Reason: Pain Stop: 12/30/18 12:24 Nitroglycerin (Nitrostat) 0.4 mg SL PRN PRN PRN Reason: Chest Pain Stop: 01/14/19 21:40 Last Admin: 12/15/18 22:46 Dose: 0.4 mg Documented by: Nitroglycerin (Nitro-Bid 2%) 0.5 inch EXT Q6H MINDY Stop: 01/14/19 22:59 Last Admin: 12/16/18 16:23 Dose: Not Given Documented by: Pantoprazole Sodium (Protonix) 40 mg PO DAILYBB [facility] Stop: 01/13/19 06:29 Last Admin: 12/14/18 07:52 Dose: Not Given Documented by: PG Care Time/CCT Total # of Minutes Spent Total Time Spent with Patient: Total time spent is greater than 50% in coordination of care (as documented) at patient's floor/unit and/or counseling patient: (1) Respiratory failure Chronicity: acute Respiratory failure complication: hypoxia and hypercapnia Qualified Code(s): J96.01 - Acute respiratory failure with hypoxia; J96.02 - Acute respiratory failure with hypercapnia
[2018-12-17] MEDS: NITROGLYCERIN 2% OINTMENT 30GM TUBE EXT SCH ×4 (06:13→23:31)
--- NOTE | 2018-12-17 08:56 | Palliative Care Progress Note ---
Date of Service December 17, 2018 Assessment & Plan (1) Palliative care encounter: -Comfort measures only. -Patient is comfortable and stable for discharge. She has not used any morphine. -On nasal cannula. -Possibly home with hospice. Son at bedside today and inquired about home hospice. not at bedside at this time. Case management following. (2) Respiratory failure: (3) Pulmonary edema: (4) Stress-induced cardiomyopathy: (5) Multi-vessel coronary artery stenosis: (6) NSTEMI (non-ST elevated myocardial infarction): (7) Acute kidney injury: Subjective Patient looks comfortable on nasal cannula today. SOn at bedside, is not. Patient denies any complaints. Review of Systems Constitutional: + weakness Ear, Nose, Mouth, Throat: no dysphagia Respiratory: no dyspnea "phlegm in throat" Cardiovascular: no chest pain Gastrointestinal: + constipation; no abdominal pain Neurologic: no confusion Physical Exam Constitutional: comfortable Eyes: PERRL, conjunctivae normal, anicteric sclerae ENMT: external ear and nose normal, oropharynx normal Respiratory: normal respiratory effort; no labored breathing Cardiovascular: RRR, no murmur, no edema Gastrointestinal (Abdomen): normal bowel sounds, soft, nontender, no hepatosplenomegaly Psychiatric: A+Ox3, euthymic affect Results & Data Vital Signs (Past 12 Hours) Vital Signs Pulse Resp Pulse Ox 12/16/18 22:55 80 18 98 Time Spent Midlevel 25 minutes with >50% of the time spent at bedside with patient and family discussing comfort and POC. (1) Respiratory failure Chronicity: acute Respiratory failure complication: hypoxia and hypercapnia Qualified Code(s): J96.01 - Acute respiratory failure with hypoxia; J96.02 - Acute respiratory failure with hypercapnia (2) Pulmonary edema Chronicity: acute Qualified Code(s): J81.0 - Acute pulmonary edema
[2018-12-17] MEDS ORDERED: POLYETHYLENE (MIRALAX) 17 GM PACK PO PRN (08:59)
[2018-12-17] MEDS ORDERED: MoRPHine SULFATE 5 MG/0.25 ML UDP PO PRN (09:14)
--- NOTE | 2018-12-17 11:26 | Cardiology Progress Note ---
Date of Service December 17, 2018 Assessment & Plan (1) Respiratory failure: 2. Acute systolic heart failure 3. NSTEMI/critical multivessel coronary artery disease/Ischemic cardiomyopathy with apical akinesis --EF30-35% 4. Sepsis/pneumonia 5. 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 Cerebrovascular disease with ? left distal vertebral occlusion 7. RT heel ulcer/abscess 8. LE PAD - RT RAJAT 0.47, LT 0.81 (moderate distal SFA/popliteal stenosis, likely RT GUSTABO occlusion with reconstitution). 9. Acute on chronic renal insufficiency 10. Rheumatoid arthritis 11. Insulin-dependent diabetes Patient made comfort measures only. Today looks well tolerating nasal cannula. No recurrent chest pain overnight. Minimal congestion on exam, renal function improved. Home hospice being considered. Talked with , daughter and family updated regarding heart status. Recommend discharge on maintenance diuretic, Lasix 40 mg daily Can transition Nitropatch to isosorbide mononitrate 30 mg daily No change to remaining cardiac regimen. Subjective Patient comfortable on nasal cannula today. Alert and conversant. Denies chest pain. Denies difficulty breathing. Reports feels like needs to get out more sputum. Review of Systems Review of Systems: All systems reviewed & are unremarkable except as noted in HPI & below Physical Exam Physical Exam: General: Comfortable, no acute distress, nasal cannula in place HEENT: Sclerae anicteric Lungs: Coarse breath sounds with few scattered wheezes anteriorly Cardiac: Regular rate and rhythm, no murmurs. JVP around 7 Abdomen: Soft, nontender, nondistended Extremities: Warm, well perfused, trivial edema Skin: No rashes or lesions. Neuro: Nonfocal Psych: Alert and oriented PG Care Time/CCT Total # of Minutes Spent Total Time Spent with Patient: Total time spent is greater than 50% in coordination of care (as documented) at patient's floor/unit and/or counseling patient: (1) Respiratory failure Chronicity: acute Respiratory failure complication: hypoxia and hypercapnia Qualified Code(s): J96.01 - Acute respiratory failure with hypoxia; J96.02 - Acute respiratory failure with hypercapnia
--- NOTE | 2018-12-17 19:44 | Hospitalist Progress Note ---
Date of Service December 17, 2018 Assessment & Plan (1) Palliative care encounter: continue comfort measures patient is comfortable today, trying to eat a little but no appetite discussed that we will see how she does over the weekend, try for home next week if possible (2) Severe sepsis: due to pneumonia treated with Cefepime and Linezolid initially some response with improvement in respiratory status, no fever, vitals stabilized however, due to chest pain, worsening breathing today she wants comfort only stop antibiotics. no further lab draws (3) NSTEMI (non-ST elevated myocardial infarction): troponin markedly elevated, trended down had ST depressions and TW inversions in anteriolateral leads treated with heparin drip, antiplatelets, metoprolol patient with crushing chest pain and more respiratory distress this morning she wanted to be comfort only use Morphine PRN, use Nitro paste PRN as it help chest pain this morning no further tele monitoring, hep drip stopped (4) Acute systolic heart failure: worsening of EF at 30-35% on echo, akinesis of apex, hypokinesis of other kumar, likely RCA infarct evidence of pulmonary edema, worse on CXR this AM comfort care (5) Multifocal pneumonia: responded well to Cefepime and Linezolid no fever, extubated on 12/15 change to comfort (6) Respiratory failure: due to both pneumonia and acute systolic heart failure intubated in the ED on admission extubated on 12/15/18 in the morning breathing well on 2L NC patient expressed her wishes to not be intubated if breathing deteriorates again now full comfort care (7) Multi-vessel coronary artery stenosis: Dyslipidemia Continue Lipitor, Plavix, metoprolol once safe to take PO heparin drip (8) 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, continue Zyvox (9) Hemianopia, homonymous, left: Supportive care Subjective patient seen this morning she said she slept okay with her BIPAP, c/o the mask being too tight, hurt her face breathing well on NC this morning, no distress discussed tentative plan with patient and her family explained that we can watch her over the weekend, consider home hospice next week patient very anxious, does not want to leave the hospital palliative care following, helping with plan Review of Systems Review of Systems: All systems reviewed & are unremarkable except as noted in HPI & below Physical Exam Constitutional: WD/WN, vitals as above no acute distress Eyes: PERRL, conjunctivae normal, anicteric sclerae ENMT: external ear and nose normal, oropharynx normal (dry mucous membranes) Neck: trachea midline, no thyromegaly Respiratory: normal respiratory effort, lungs clear to auscultation (decreased sounds in bases) Cardiovascular: RRR, no murmur, no edema Gastrointestinal (Abdomen): normal bowel sounds, soft, nontender, no hepatosplenomegaly Musculoskeletal: no cyanosis or clubbing, extremities motor strength 5/5 Skin: no rashes, warm and dry Neurologic: patellar DTR's 2+ bilat, sensation intact and PERRL, EOMI, accommodation nl, no face palsy, no dysarthria Psychiatric: A+Ox3, euthymic affect Lymphatic: no cervical or axillary lymphadenopathy Results & Data Medications Administered Current Inpatient Medications Acetaminophen (Tylenol) 1,000 mg PO Q6H PRN PRN Reason: Pain Stop: 01/13/19 05:54 Last Admin: 12/14/18 21:21 Dose: 1,000 mg Documented by: Atorvastatin Calcium (Lipitor) 40 mg PO HS MINDY Stop: 01/13/19 20:59 Last Admin: 12/14/18 20:24 Dose: 40 mg Documented by: Clopidogrel Bisulfate (Plavix) 75 mg PO QPM MINDY Stop: 01/13/19 20:59 Last Admin: 12/14/18 20:26 Dose: 75 mg Documented by: Dextrose (Dextrose 50%) 25 - 50 ml IV UD PRN; Protocol PRN Reason: Hypoglycemia Protocol Stop: 01/13/19 03:44 Docusate Sodium (Colace) 100 mg PO BID MINDY Stop: 01/13/19 20:59 Last Admin: 12/15/18 07:52 Dose: Not Given Documented by: Folic Acid (Folvite) 1 mg PO QDL MINDY Stop: 01/13/19 11:29 Last Admin: 12/15/18 11:52 Dose: Not Given Documented by: Glucagon (Glucagen) 1 mg IM UD PRN; Protocol PRN Reason: Hypoglycemia Protocol Stop: 01/13/19 03:44 Glucose (Glucose 40%) 15 - 30 gm PO UD PRN; Protocol PRN Reason: Hypoglycemia Protocol Stop: 01/13/19 03:44 Glucose (Dex4 Glucose) 4 - 8 tabs PO UD PRN; Protocol PRN Reason: Hypoglycemia Protocol Stop: 01/13/19 03:44 Miscellaneous (Carbohydrates For Hypoglycemia) 15 - 30 gm PO PRN PRN PRN Reason: Hypoglycemia Treatment Stop: 01/13/19 03:44 Morphine Sulfate (Roxanol) 5 mg PO Q3H PRN PRN Reason: Pain or SOB Stop: 12/31/18 09:13 Last Admin: 12/17/18 12:43 Dose: 5 mg Documented by: Nitroglycerin (Nitrostat) 0.4 mg SL PRN PRN PRN Reason: Chest Pain Stop: 01/14/19 21:40 Last Admin: 12/15/18 22:46 Dose: 0.4 mg Documented by: Nitroglycerin (Nitro-Bid 2%) 0.5 inch EXT Q6H MINDY Stop: 01/14/19 22:59 Last Admin: 12/17/18 16:17 Dose: Not Given Documented by: Pantoprazole Sodium (Protonix) 40 mg PO DAILYBB MINDY Stop: 01/13/19 06:29 Last Admin: 12/14/18 07:52 Dose: Not Given Documented by: Polyethylene Glycol (Miralax Powder Packet) 17 gm PO DAILY PRN PRN Reason: Constipation Stop: 01/16/19 08:58 Last Admin: 12/17/18 09:56 Dose: 17 gm Documented by: PG Care Time/CCT Total # of Minutes Spent Total Time Spent with Patient: Total time spent is greater than 50% in coordination of care (as documented) at patient's floor/unit and/or counseling patient: (1) Respiratory failure Chronicity: acute Respiratory failure complication: hypoxia and hypercapnia Qualified Code(s): J96.01 - Acute respiratory failure with hypoxia; J96.02 - Acute respiratory failure with hypercapnia
[2018-12-17] MEDS ORDERED: LACTULOSE SYRUP 20 GM/30 ML UDC PO ONE (21:03)
[2018-12-18] MEDS: NITROGLYCERIN 2% OINTMENT 30GM TUBE EXT SCH ×4 (05:21→23:31)
--- NOTE | 2018-12-18 11:14 | Hospitalist Progress Note ---
Date of Service December 18, 2018 Assessment & Plan (1) Palliative care encounter: continue comfort measures patient is comfortable today, no chest pain, no dyspnea, eating well interested in setting up home hospice reached out to CM to help make referrals could go home Thursday/Thursday if arrangements made (2) Severe sepsis: due to pneumonia treated with Cefepime and Linezolid initially some response with improvement in respiratory status, no fever, vitals stabilized however, due to chest pain, worsening breathing today she wants comfort only stop antibiotics. no further lab draws (3) NSTEMI (non-ST elevated myocardial infarction): troponin markedly elevated, trended down had ST depressions and TW inversions in anteriolateral leads treated with heparin drip, antiplatelets, metoprolol patient with crushing chest pain and more respiratory distress this morning she wanted to be comfort only use Morphine PRN, use Nitro paste PRN as it help chest pain this morning no further tele monitoring, hep drip stopped (4) Acute systolic heart failure: worsening of EF at 30-35% on echo, akinesis of apex, hypokinesis of other kumar, likely RCA infarct evidence of pulmonary edema, worse on CXR this AM comfort care (5) Multifocal pneumonia: responded well to Cefepime and Linezolid no fever, extubated on 12/15 change to comfort (6) Respiratory failure: due to both pneumonia and acute systolic heart failure intubated in the ED on admission extubated on 12/15/18 in the morning breathing well on 2L NC patient expressed her wishes to not be intubated if breathing deteriorates again now full comfort care (7) Multi-vessel coronary artery stenosis: Dyslipidemia Continue Lipitor, Plavix, metoprolol once safe to take PO heparin drip (8) 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, continue Zyvox (9) Hemianopia, homonymous, left: Supportive care Subjective patient comfortable this morning, slept well on nasal canula no chest pain, no dyspnea eating okay at the bedside, discussed getting hospice set up at home to go home early next week patient and in agreement Review of Systems Review of Systems: All systems reviewed & are unremarkable except as noted in HPI & below Respiratory: no cough and no dyspnea Cardiovascular: no chest pain Physical Exam Constitutional: WD/WN, vitals as above no acute distress Eyes: PERRL, conjunctivae normal, anicteric sclerae ENMT: external ear and nose normal, oropharynx normal (dry mucous membranes) Neck: trachea midline, no thyromegaly trachea midline (stridor on auscultation) Respiratory: normal respiratory effort, lungs clear to auscultation (decreased sounds in bases) Cardiovascular: RRR, no murmur, no edema Gastrointestinal (Abdomen): normal bowel sounds, soft, nontender, no hepatosplenomegaly Musculoskeletal: no cyanosis or clubbing, extremities motor strength 5/5 Skin: no rashes, warm and dry Neurologic: patellar DTR's 2+ bilat, sensation intact and PERRL, EOMI, accommodation nl, no face palsy, no dysarthria Psychiatric: A+Ox3, euthymic affect Lymphatic: no cervical or axillary lymphadenopathy Results & Data Vital Signs (Past 12 Hours) Vital Signs Temp Pulse Resp BP Pulse Ox 12/18/18 07:43 37.1 C 92 H 20 165/78 H 99 Medications Administered Current Inpatient Medications Acetaminophen (Tylenol) 1,000 mg PO Q6H PRN PRN Reason: Pain Stop: 01/13/19 05:54 Last Admin: 12/14/18 21:21 Dose: 1,000 mg Documented by: Atorvastatin Calcium (Lipitor) 40 mg PO HS MINDY Stop: 01/13/19 20:59 Last Admin: 12/14/18 20:24 Dose: 40 mg Documented by: Clopidogrel Bisulfate (Plavix) 75 mg PO QPM MINDY Stop: 01/13/19 20:59 Last Admin: 12/14/18 20:26 Dose: 75 mg Documented by: Dextrose (Dextrose 50%) 25 - 50 ml IV UD PRN; Protocol PRN Reason: Hypoglycemia Protocol Stop: 01/13/19 03:44 Docusate Sodium (Colace) 100 mg PO BID MINDY Stop: 01/13/19 20:59 Last Admin: 12/15/18 07:52 Dose: Not Given Documented by: Folic Acid (Folvite) 1 mg PO QDL MINDY Stop: 01/13/19 11:29 Last Admin: 12/15/18 11:52 Dose: Not Given Documented by: Glucagon (Glucagen) 1 mg IM UD PRN; Protocol PRN Reason: Hypoglycemia Protocol Stop: 01/13/19 03:44 Glucose (Glucose 40%) 15 - 30 gm PO UD PRN; Protocol PRN Reason: Hypoglycemia Protocol Stop: 01/13/19 03:44 Glucose (Dex4 Glucose) 4 - 8 tabs PO UD PRN; Protocol PRN Reason: Hypoglycemia Protocol Stop: 01/13/19 03:44 Miscellaneous (Carbohydrates For Hypoglycemia) 15 - 30 gm PO PRN PRN PRN Reason: Hypoglycemia Treatment Stop: 01/13/19 03:44 Morphine Sulfate (Roxanol) 5 mg PO Q3H PRN PRN Reason: Pain or SOB Stop: 12/31/18 09:13 Last Admin: 12/17/18 12:43 Dose: 5 mg Documented by: Nitroglycerin (Nitrostat) 0.4 mg SL PRN PRN PRN Reason: Chest Pain Stop: 01/14/19 21:40 Last Admin: 12/15/18 22:46 Dose: 0.4 mg Documented by: Nitroglycerin (Nitro-Bid 2%) 0.5 inch EXT Q6H MINDY Stop: 01/14/19 22:59 Last Admin: 12/18/18 05:21 Dose: 0.5 inch Documented by: Pantoprazole Sodium (Protonix) 40 mg PO DAILYBB MINDY Stop: 01/13/19 06:29 Last Admin: 12/14/18 07:52 Dose: Not Given Documented by: Polyethylene Glycol (Miralax Powder Packet) 17 gm PO DAILY PRN PRN Reason: Constipation Stop: 01/16/19 08:58 Last Admin: 12/17/18 09:56 Dose: 17 gm Documented by: PG Care Time/CCT Total # of Minutes Spent Total Time Spent with Patient: Total time spent is greater than 50% in coordination of care (as documented) at patient's floor/unit and/or counseling patient: (1) Respiratory failure Chronicity: acute Respiratory failure complication: hypoxia and hypercapnia Qualified Code(s): J96.01 - Acute respiratory failure with hypoxia; J96.02 - Acute respiratory failure with hypercapnia
[2018-12-18] MEDS: INSULIN ASPART 100 UNITS/ML 3 ML PEN SC SCH ×2 (18:15→20:37)
[2018-12-18] MEDS: INSULIN GLARGINE SOLOSTAR 100 UNITS/ML 3 ML PEN SC SCH (20:37)
[2018-12-18] MEDS: METOPROLOL TARTRATE 50 MG TAB PO SCH (20:41)
[2018-12-19] MEDS: NITROGLYCERIN 2% OINTMENT 30GM TUBE EXT SCH ×4 (05:24→23:06)
[2018-12-19] MEDS: METOPROLOL TARTRATE 50 MG TAB PO SCH ×2 (07:35→20:46)
[2018-12-19] MEDS: PANTOprazole 40 MG TAB PO SCH (07:35)
[2018-12-19] MEDS: TOPIRAMATE 25 MG TAB PO SCH (07:36)
[2018-12-19] MEDS: INSULIN ASPART 100 UNITS/ML 3 ML PEN SC SCH ×4 (09:02→20:45)
[2018-12-19] MEDS ORDERED: MICONAZOLE NITRATE POWDER 43 GM EXT PRN (09:55)
[2018-12-19] MEDS ORDERED: COUGH DROP (SUGAR FREE) LOZ 24 LOZ/1 BOX BUCCAL PRN (10:58)
--- NOTE | 2018-12-19 15:37 | Hospitalist Progress Note ---
Date of Service December 19, 2018 Assessment & Plan (1) Palliative care encounter: continue comfort measures patient is comfortable today, no chest pain, no dyspnea, eating well and daughter interested in setting up home hospice reached out to CM to help make referrals could go home Thursday/Thursday if arrangements made (bed, oxygen etc) continue on some of her home medications, again stressed that comfort is goal discussed checking sugars, only if she is okay with it (2) Severe sepsis: due to pneumonia treated with Cefepime and Linezolid initially some response with improvement in respiratory status, no fever, vitals stabili zed however, due to chest pain, worsening breathing today she wants comfort only stop antibiotics. no further lab draws (3) NSTEMI (non-ST elevated myocardial infarction): troponin markedly elevated, trended down had ST depressions and TW inversions in anteriolateral leads treated with heparin drip, antiplatelets, metoprolol patient with crushing chest pain and more respiratory distress this morning she wanted to be comfort only use Morphine PRN, use Nitro paste PRN as it help chest pain this morning no further tele monitoring, hep drip stopped (4) Acute systolic heart failure: worsening of EF at 30-35% on echo, akinesis of apex, hypokinesis of other kumar, likely RCA infarct evidence of pulmonary edema, worse on CXR this AM comfort care (5) Multifocal pneumonia: responded well to Cefepime and Linezolid no fever, extubated on 12/15 change to comfort (6) Respiratory failure: due to both pneumonia and acute systolic heart failure intubated in the ED on admission extubated on 12/15/18 in the morning breathing well on 2L NC patient expressed her wishes to not be intubated if breathing deteriorates again now full comfort care (7) Multi-vessel coronary artery stenosis: Dyslipidemia Continue Lipitor, Plavix, metoprolol once safe to take PO heparin drip (8) 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, continue Zyvox (9) Hemianopia, homonymous, left: Supportive care Subjective patient resting comfortably no issues overnight has a mild sore throat, likely from intubation no stridor on exam eating a little better discussed with patient and her daughter at the bedside about going home with hospice, possibly tomorrow they agree patient says she has a little difficulty swallowing, has to chew food a long time suggested we try a pureed diet, she will try it Review of Systems Review of Systems: All systems reviewed & are unremarkable except as noted in HPI & below Physical Exam Constitutional: WD/WN, vitals as above no acute distress Eyes: PERRL, conjunctivae normal, anicteric sclerae ENMT: external ear and nose normal, oropharynx normal (dry mucous membranes) Neck: trachea midline, no thyromegaly Respiratory: normal respiratory effort, lungs clear to auscultation (decreased sounds in bases) Cardiovascular: RRR, no murmur, no edema Gastrointestinal (Abdomen): normal bowel sounds, soft, nontender, no hepatosplenomegaly Musculoskeletal: no cyanosis or clubbing, extremities motor strength 5/5 Skin: no rashes, warm and dry Neurologic: patellar DTR's 2+ bilat, sensation intact and PERRL, EOMI, accommodation nl, no face palsy, no dysarthria Psychiatric: A+Ox3, euthymic affect Lymphatic: no cervical or axillary lymphadenopathy Results & Data Vital Signs (Past 12 Hours) Vital Signs Temp Pulse Resp BP Pulse Ox 12/19/18 14:49 97 12/19/18 14:24 36.8 C 77 18 150/81 H 98 12/19/18 08:00 36.8 C 94 H 18 183/97 H 98 Medications Administered Current Inpatient Medications Acetaminophen (Tylenol) 1,000 mg PO Q6H PRN PRN Reason: Pain Stop: 01/13/19 05:54 Last Admin: 12/14/18 21:21 Dose: 1,000 mg Documented by: Atorvastatin Calcium (Lipitor) 40 mg PO HS MINDY Stop: 01/13/19 20:59 Last Admin: 12/14/18 20:24 Dose: 40 mg Documented by: Clopidogrel Bisulfate (Plavix) 75 mg PO QPM MINDY Stop: 01/13/19 20:59 Last Admin: 12/14/18 20:26 Dose: 75 mg Documented by: Dextrose (Dextrose 50%) 25 - 50 ml IV UD PRN; Protocol PRN Reason: Hypoglycemia Protocol Stop: 01/13/19 03:44 Docusate Sodium (Colace) 100 mg PO BID MINDY Stop: 01/13/19 20:59 Last Admin: 12/15/18 07:52 Dose: Not Given Documented by: Folic Acid (Folvite) 1 mg PO QDL MINDY Stop: 01/13/19 11:29 Last Admin: 12/15/18 11:52 Dose: Not Given Documented by: Glucagon (Glucagen) 1 mg IM UD PRN; Protocol PRN Reason: Hypoglycemia Protocol Stop: 01/13/19 03:44 Glucose (Glucose 40%) 15 - 30 gm PO UD PRN; Protocol PRN Reason: Hypoglycemia Protocol Stop: 01/13/19 03:44 Glucose (Dex4 Glucose) 4 - 8 tabs PO UD PRN; Protocol PRN Reason: Hypoglycemia Protocol Stop: 01/13/19 03:44 Insulin Aspart (Novolog Flexpen) 0 units SC ACHS MINDY Stop: 01/17/19 16:29 Last Admin: 12/19/18 12:38 Dose: Not Given Documented by: Insulin Glargine (Lantus Solostar Pen) 6 units SC QPM MINDY Stop: 01/17/19 20:59 Last Admin: 12/18/18 20:37 Dose: 6 units Documented by: Menthol (Nice) 1 kerwin BUCCAL PRN PRN PRN Reason: Cough Stop: 01/18/19 10:57 Metoprolol Tartrate (Lopressor) 50 mg PO BID MINDY Stop: 01/17/19 20:59 Last Admin: 12/19/18 07:35 Dose: 50 mg Documented by: Miconazole Nitrate (Desenex) 1 appln EXT PRN PRN PRN Reason: Affected Skin Folds Stop: 01/18/19 09:54 Miscellaneous (Carbohydrates For Hypoglycemia) 15 - 30 gm PO PRN PRN PRN Reason: Hypoglycemia Treatment Stop: 01/13/19 03:44 Morphine Sulfate (Roxanol) 5 mg PO Q3H PRN PRN Reason: Pain or SOB Stop: 12/31/18 09:13 Last Admin: 12/17/18 12:43 Dose: 5 mg Documented by: Nitroglycerin (Nitrostat) 0.4 mg SL PRN PRN PRN Reason: Chest Pain Stop: 01/14/19 21:40 Last Admin: 12/15/18 22:46 Dose: 0.4 mg Documented by: Nitroglycerin (Nitro-Bid 2%) 0.5 inch EXT Q6H MINDY Stop: 01/14/19 22:59 Last Admin: 12/19/18 11:49 Dose: 0.5 inch Documented by: Pantoprazole Sodium (Protonix) 40 mg PO QAM [facility] Stop: 01/18/19 08:59 Last Admin: 12/19/18 07:35 Dose: 40 mg Documented by: Polyethylene Glycol (Miralax Powder Packet) 17 gm PO DAILY PRN PRN Reason: Constipation Stop: 01/16/19 08:58 Last Admin: 12/17/18 09:56 Dose: 17 gm Documented by: Topiramate (Topamax) 25 mg PO QAM [facility] Stop: 01/18/19 08:59 Last Admin: 12/19/18 07:36 Dose: 25 mg Documented by: PG Care Time/CCT Total # of Minutes Spent Total Time Spent with Patient: Total time spent is greater than 50% in coordination of care (as documented) at patient's floor/unit and/or counseling patient: (1) Respiratory failure Chronicity: acute Respiratory failure complication: hypoxia and hypercapnia Qualified Code(s): J96.01 - Acute respiratory failure with hypoxia; J96.02 - Acute respiratory failure with hypercapnia
[2018-12-19] MEDS: INSULIN GLARGINE SOLOSTAR 100 UNITS/ML 3 ML PEN SC SCH (20:44)
[2018-12-20] MEDS: NITROGLYCERIN 2% OINTMENT 30GM TUBE EXT SCH ×4 (05:50→20:12)
[2018-12-20] MEDS: PANTOprazole 40 MG TAB PO SCH (08:09)
[2018-12-20] MEDS: TOPIRAMATE 25 MG TAB PO SCH (08:09)
[2018-12-20] MEDS: METOPROLOL TARTRATE 50 MG TAB PO SCH ×2 (08:09→20:53)
[2018-12-20] MEDS: INSULIN ASPART 100 UNITS/ML 3 ML PEN SC SCH ×4 (08:51→20:52)
--- NOTE | 2018-12-20 15:48 | Palliative Care Progress Note ---
Date of Service December 20, 2018 Assessment & Plan (1) Palliative care encounter: -Earlier patient was making comments about 'wanting to get better' to the hospitalist. I spoke with the about hospital delirium and reconfirmed the plan for hospice, he is in full agreement. -Patient was very clear about her wishes post extubation and was awake, alert, oriented. Patient may have hospital delirium, confirmed that she made her wishes clear when she was able to understand how complex her medical condition is. Updated patients daughter on the phone too. Confirmed that she can continue the same medications that she was on, just avoiding aggressive measures at this time. -Comfort measures only. POLST completed already indicating DNR/DNI, Comfort measures only, trial abx, no artificial nutrition/hydration. -Patient is comfortable and stable for discharge. She has not used any morphine. -Patient has been weaned from nasal canula and SpO2 has been 96-98%. -Plan for home with hospice. Hospice meeting the patient and at their home tomorrow between 10AM -12PM. -PPS: 40% (2) Respiratory failure: (3) Pulmonary edema: (4) Stress-induced cardiomyopathy: (5) Multi-vessel coronary artery stenosis: (6) NSTEMI (non-ST elevated myocardial infarction): (7) Acute kidney injury: (8) Chronic kidney disease, stage 3: (9) Diabetic foot ulcer associated with type 2 diabetes mellitus: Subjective Patient denies CP, SOB, N/V/D Patient resting comfortably. Patient at the bedside. Has not required any symptom management meds at this time. See A/P for further details Review of Systems Review of Systems: All systems reviewed & are unremarkable except as noted in HPI & below Physical Exam Constitutional: well developed, cooperative and comfortable Eyes: PERRL, conjunctivae normal, anicteric sclerae ENMT: external ear and nose normal, oropharynx normal Respiratory: + labored breathing Auscultation: + rhonchi Cardiovascular: RRR, no murmur, no edema Gastrointestinal (Abdomen): normal bowel sounds, soft, nontender, no hepatosplenomegaly Psychiatric: A+Ox3, euthymic affect Insight: good insight Judgement: good judgement Results & Data Vital Signs (Past 12 Hours) Vital Signs Temp Pulse Resp BP Pulse Ox 12/20/18 15:33 37.1 C 77 18 152/82 H 95 09/23/19 07:11 37.1 C 85 18 168/77 H 97 PG Care Time/CCT Total # of Minutes Spent Total Time Spent with Patient: Total time spent is greater than 50% in coordination of care (as documented) at patient's floor/unit and/or counseling patient: 25 Time Spent Midlevel Total time spent 25 minutes with > 50% of that time spent assessing the patient, discussing goals of care with patient and . (1) Respiratory failure Chronicity: acute Respiratory failure complication: hypoxia and hypercapnia Qualified Code(s): J96.01 - Acute respiratory failure with hypoxia; J96.02 - Acute respiratory failure with hypercapnia (2) Pulmonary edema Chronicity: acute Qualified Code(s): J81.0 - Acute pulmonary edema (3) Diabetic foot ulcer associated with type 2 diabetes mellitus Diabetic foot ulcer location: heel Laterality: right Non-pressure ulcer stage: with fat layer exposed Qualified Code(s): E11.621 - Type 2 diabetes mellitus with foot ulcer; L97.412 - Non-pressure chronic ulcer of right heel and midfoot with fat layer exposed
--- NOTE | 2018-12-20 19:32 | Hospitalist Progress Note ---
Date of Service December 20, 2018 Assessment & Plan (1) Palliative care encounter: there seemed to be considerable confusion about the goals of care today between the pt, her , and the daughter. the patient was altered (thought it was 1988, Thursday, etc) and this likely caused disagreement about goals of care. we spent 30+ minutes discussing things and in the end it seemed that - 1. patient still DNR 2. no SNF placement 3. everyone understands that if hospice is in place she CAN walk as desired but formal PT/OT will not be pursued at home 4. the goal is to "not get better" from cardiac standpoint but to control symptoms from her extensive cardiac diseases 5. still home w/ hospice Lisbet from palliative care came to bedside this afternoon to further refine/assist goals of care and she, too, confirmed that the above are still correct I told pt's daughter and that because patient is confused/altered she will have hard time processing the decision making plan - home w/ hospice tomorrow (2) Severe sepsis: due to pneumonia treated with Cefepime and Linezolid initially then abx stopped once transitioned to comfort/palliative care pathway (3) NSTEMI (non-ST elevated myocardial infarction): troponin markedly elevated w/ peak of [address] depressions and T wave inversions in anterolateral leads at admission treated with heparin drip, antiplatelets, metoprolol s/p heart cath during recent/prior admission with severe triple-vessel CAD she is now chest pain free and compensated from CHF standpoint d/c nitropaste change back to imdur cont BB these meds could be considered palliative (4) Acute systolic heart failure: ischemic cardiomyopathy EF 30-35% on echo this admission w/ akinesis of apex, hypokinesis of other kumar amazingly looks fairly well-compensated today resume lasix 20mg daily in am. 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 there seemed to be confusion about goals of care, what hospice means, etc. multiple times the patient said "I want to walk. I want to get better." multiple times the stated "how come she's not getting her heart meds?" a couple of times he stated "what about her heart ? how is it doing?" the plan was for home w/ hospice tomorrow. when asked what she wanted again she stated "I want to get better." in that context, however, she was confused -- told me it was Thursday and that it was 1988. she and her consistently stated they would NOT want SNF placement. she has not been out of bed since coming into the hospital this time. Review of Systems Respiratory: no cough and no dyspnea Cardiovascular: no chest pain and no orthopnea Gastrointestinal: no abdominal pain Physical Exam Constitutional: + altered mental status; no acute distress ENMT: external ear and nose normal, oropharynx normal Respiratory: normal respiratory effort, lungs clear to auscultation Cardiovascular: Rate/Rhythm: regular rate and regular rhythm Heart Sounds: normal S1 and normal S2 Vessels: posterior tibial pulses present and dorsalis pedis pulses present; no JVD Extremities: no edema Gastrointestinal (Abdomen): normal bowel sounds, soft, nontender, no hepatosplenomegaly Neurologic: foot drop b/l Psychiatric: Orientation: alert, oriented to person and oriented to place; + not oriented to time Results & Data Vital Signs (Past 12 Hours) Vital Signs Temp Pulse Resp BP Pulse Ox 12/20/18 15:33 37.1 C 77 18 152/82 H 95 Laboratory Results Laboratory Results - last 24 hr 12/19/18 12/20/18 12/20/18 19:53 07:51 13:02 POC Glucose 200 H 115 H 167 H 12/20/18 16:21 POC Glucose 123 H PG Care Time/CCT Total # of Minutes Spent Total Time Spent with Patient: Total time spent is greater than 50% in coordination of care (as documented) at patient's floor/unit and/or counseling patient: (1) Neuropathic ulcer of right foot Non-pressure ulcer stage: unspecified non-pressure ulcer stage Qualified Code(s): L97.519 - Non-pressure chronic ulcer of other part of right foot with unspecified severity (2) Respiratory failure Chronicity: acute Respiratory failure complication: hypoxia and hypercapnia Qualified Code(s): J96.01 - Acute respiratory failure with hypoxia; J96.02 - Acute respiratory failure with hypercapnia
[2018-12-20] MEDS: INSULIN GLARGINE SOLOSTAR 100 UNITS/ML 3 ML PEN SC SCH (20:53)
[2018-12-20 23:10] VITALS: O2SAT 96
[2018-12-21 07:23] VITALS: BP 176/94; PULSE 87; TEMP 98.2
[2018-12-21] MEDS: TOPIRAMATE 25 MG TAB PO SCH (08:23)
[2018-12-21] MEDS: METOPROLOL TARTRATE 50 MG TAB PO SCH (08:23)
[2018-12-21] MEDS: PANTOprazole 40 MG TAB PO SCH (08:23)
[2018-12-21] MEDS: INSULIN ASPART 100 UNITS/ML 3 ML PEN SC SCH ×2 (08:23→12:05)
[2018-12-21] MEDS ORDERED: ISOSORBIDE MONO EXTENDED REL 30 MG TABCR PO SCH (09:00)
[2018-12-21] MEDS ORDERED: FUROSEMIDE 20 MG TAB PO SCH (09:00)
--- NOTE | 2018-12-28 08:02 | Discharge Summary ---
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 Patient was recently discharged 3 days ago to rehab. During the prior stay she had suffered a NSTEMI and acute stroke. She was doing well after discharge until she developed the acute onset shortness of breath. Brought to ED and was found to have acute pulmonary edema with hypoxemia requiring immediate intubation. Principal Diagnosis NSTEMI, acute/chronic systolic CHF Discharge Exam Constitutional + altered mental status (baseline); no acute distress ENMT external ear and nose normal, oropharynx normal Respiratory normal respiratory effort, lungs clear to auscultation Cardiovascular Rate/Rhythm: regular rate and regular rhythm Heart Sounds: normal S1 and normal S2 Vessels: posterior tibial pulses present and dorsalis pedis pulses present; no JVD Extremities: no edema Gastrointestinal (Abdomen) normal bowel sounds, soft, nontender, no hepatosplenomegaly Psychiatric Orientation: alert, oriented to person and oriented to place; + not oriented to time Discharge Data Allergies Allergy/AdvReac Type Severity Reaction Status Date / Time amitriptyline Allergy Intermediate BLURRED Verified 12/14/18 00:19 DOUBLE VISION gabapentin Allergy Intermediate SHAKES,VISION Verified 12/14/18 00:19 CHANGES latex Allergy Intermediate SKIN GETS Verified 12/14/18 00:19 RAW-PT HAS NO RECOLLECTION meloxicam Allergy Intermediate DIARRHEA Verified 12/14/18 00:19 metformin Allergy Intermediate HOT FLASHES Verified 12/14/18 00:19 pregabalin Allergy Intermediate DIZZINESS, Verified 12/14/18 00:19 SLEEPY acetaminophen Allergy Mild SWEATING Verified 12/14/18 00:19 pioglitazone Allergy Mild SORE Verified 12/14/18 00:19 THROAT,EAts excessively Cipro Allergy Unknown itshiness,red Verified 06/25/16 17:42 streak ciprofloxacin Allergy Unknown itchiness,red Verified 12/14/18 00:19 streak guaifenesin Allergy Unknown UNKNOWN Verified 12/14/18 00:19 metronidazole Allergy Unknown UNKNOWN Verified 12/14/18 00:19 Penicillins Allergy Unknown INJECTION Verified 12/14/18 00:19 UNKNOWN rofecoxib Allergy Unknown UNKNOWN Verified 12/14/18 00:19 rosuvastatin Allergy Unknown UNKNOWN Verified 12/14/18 00:19 simvastatin Allergy Unknown UNKNOWN Verified 12/14/18 00:19 Sulfa (Sulfonamide Allergy Unknown HIVES Verified 12/14/18 00:19 Antibiotics) tramadol Allergy Unknown SWEATING Verified 12/14/18 00:19 Tricyclic Compounds Allergy Unknown ON WINDY Verified 12/14/18 00:19 [place] Consultations 1. critical care 2. palliative care 3. cardiology 4. infectious disease 5. nutrition Procedures Performed echocardiogram - * EF 30-35% * severe hypokinesis of most portions of the LV wall * prior echo was 35-40% intubation/mechanical ventilation Hospital Course (1) NSTEMI (non-ST elevated myocardial infarction): Patient suffered another coronary event this admission. Troponin was markedly elevated w/ peak of 85. Had ST depressions and T wave inversions in anterolateral leads at admission. Treated with heparin drip, antiplatelets, metoprolol. Echo showed worsening LV function in comparison to just a few weeks ago. s/p heart cath during recent/prior admission with severe triple-vessel CAD. Patient now chest pain free and compensated from CHF standpoint. She will continue beta eileen and imdur at discharge for palliative purposes along with plavix/lasix/JADEN. These meds could be considered palliative with the goal of preventing chest pain, dyspnea, etc. (2) Severe sepsis: due to pneumonia treated with Cefepime and Linezolid initially then abx stopped once transitioned to comfort/palliative care pathway She required intubation and mechanical ventilation in setting of her NSTEMI, acute systolic CHF, and suspected pneumonia. (3) Acute systolic heart failure: Due to ischemic cardiomyopathy EF 30-35% on echo this admission w/ akinesis of apex, hypokinesis of other kumar diuresed while hospitalized. will remain on metoprolol, imdur, lasix, JADEN at discharge. compensated at time of discharge. (4) Multifocal pneumonia: responded well to Cefepime and Linezolid initially on vent early this admission (intubated upon ER presentation); extubated on 12/15/18 antibiotics ultimately d/c due to change in care plan to palliation (5) Respiratory failure: acute hypoxic. due to pneumonia and acute systolic heart failure intubated in the ED on admission extubated on 12/15/18 in the morning now DNR/DNI stable in room air at time of discharge to home (6) Multi-vessel coronary artery stenosis: severe see above (7) 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 had been on zyvox prior but now stopped continue dressing changes (8) Hemianopia, homonymous, left: 2nd to prior stroke (9) Palliative care encounter: Patient, her , and a daughter met several times with palliative care team. Even in midst of mild cognitive impairment the patient did not want aggressive care measures. The patient's family wished for her to return home with hospice. Thus, at time of discharge, she is returning home with hospice services in place. Total Time Total Time Spent Total Time Spent (In Minutes): 40 Total Time Includes: Examination of the Patient, Discharge Planning, Medication Reconciliation and Communication With Other Providers Discharge Plan Discharge Items Patient Disposition: Hospice - Home Reason For Visit: Shortness of breath Discharge Diagnosis: 1. pneumonia 2. congestive heart failure 3. heart attack 4. severe coronary artery disease 5. transition to hospice Activity: As commented below Activity Comment: take it easy; limited walks, getting to chair as desired Non-emergency contact: Primary Care Provider Call non-emergency contact if: you have any medication questions, your symptoms worsen, your pain is not controlled, your pain is worsening, your pain is unusual for you, your pain is concerning for you, your wound has increased redn ess, your wound has increased drainage and your wound pain has increased Follow-up/Referrals: Afia Villa CRNP [Primary Care Provider] - Diet: Regular Addtl Attending Provider Instructions: You were admitted for multiple issues including sepsis, pneumonia, congestive heart failure and heart attack. You spent the first portion of your hospital stay in the intensive care unit. You received antibiotics for the pneumonia and care for your heart attack. As the hospital stay went on you and your met with the palliative care team. After much discussion a decision was made to transition to hospice at your home. We have tried to stop any unnecessary medications. We will only continue medications that will bring you comfort and prevent symptoms such as chest pain, shortness of breath, etc. The hospice company will be delivering a pack to your house called a "comfort pack." In it contains multiple medications that can be used to control various symptoms such as anxiety, pain, shortness of breath, agitation, insomnia/sleep issues, or nausea/vomiting. The comfort pack medications are NOT listed on the [facility] medication list. Please speak to the hospice nurse about the comfort pack medications. Upon return home we will leave the robbins catheter in place. Simply drain the bag when needed. For the right foot wound - continue the dressings in place (aquacel covered with optifoam). The hospice nurse can assist with dressing changes. Generally they are changed about every 2 days. If you have any questions, concerns, problems, needs, uncontrolled symptoms, etc --- please contact the HOSPICE AGENCY FIRST. They will be able to address most if not all of your problems right at your home any time of day. Again contact the hospice agency first for any needs. It was our pleasure to care for you, Mrs Jay. -Dr Menjivar Pending Studies at Discharge: No Stand-Alone Forms: [facility] Medications and DC Order Prescriptions: New nitroglycerin [Nitrostat] 0.4 mg Tablet, Sublingual 0.4 mg sublingual Q5M PRN (Reason: chest pain) Qty: 1 RF: 0 metoprolol succinate [Toprol XL] 100 mg tablet extended release 24 hr 100 mg PO DAILY Qty: 30 RF: 5 Continued clopidogrel 75 mg tablet 75 mg PO QPM RF: 0 topiramate 25 mg tablet 25 mg PO QAM Qty: 30 RF: 0 pantoprazole [Protonix] 40 mg tablet,delayed release (DR/EC) 40 mg PO DAILYBB RF: 0 lisinopril 10 mg tablet 10 mg PO QAM RF: 0 polyethylene glycol 3350 [Miralax] 17 gram Powder In Packet 17 g PO BID Qty: 60 RF: 0 furosemide 20 mg tablet 20 mg PO QAM Qty: 0 RF: 0 isosorbide mononitrate 30 mg Tablet Extended Release 24 Hr 30 mg PO QAM Qty: 30 RF: 5 Discontinued atorvastatin 40 mg tablet 40 mg PO HS RF: 0 Lantus U-100 Insulin 100 unit/mL solution 12 units SQ HS RF: 0 gabapentin 100 mg capsule 100 mg PO QAM RF: 0 cholecalciferol (vitamin D3) [Vitamin D3] 1,000 unit Capsule 1,000 unit PO QDL RF: 0 Eliquis 2.5 mg Tablet 2.5 mg PO BID Qty: 60 RF: 0 docusate sodium 100 mg Capsule 100 mg PO BID Qty: 60 RF: 0 acetaminophen [Tylenol Extra Strength] 500 mg Tablet 1,000 mg PO Q6H PRN (Reason: Pain) RF: 0 metoprolol succinate 200 mg tablet extended release 24 hr 200 mg PO QAM RF: 0 linezolid 600 mg tablet 600 mg PO AMHS RF: 0 folic acid 1 mg tablet 1 mg PO QDL RF: 0 Discharge Orders: Discharge Order (Routine); Ordered 12/21/18 Ordered By: Guillermo Menjivar Admission Data Admit Date/Time: 12/14/18 04:37 Attending Provider: Guillermo Menjivar Admit Provider: Melecio Melendez Primary Care Provider: Afia Villa Other Providers: Lucio Gonsales ; Scotty Miranda ; Yeison Infante ; Erendira Ansari Other Interventions: Discharge Summary Assessment (RN) Last Done: 12/21/18 11:26 DC Date/Time DO NOT enter until pt leaves facility: 12/21/18 14:09
== END 2018-12-21 14:09 | disposition hospice, home (50) | DRG 208 ==
LOC: ED 23:51 → 1E 12-14 04:37 → SUATTDRO 12-14 04:37 → 1E 12-14 04:59 → 2W 12-16 11:22

== ENCOUNTER 2019-03-07 08:38 | Inpatient (IN) ==
[2019-03-07] MEDS ORDERED: SODIUM CHLORIDE 0.9% 1000ML 1,000 ML IV ONE (09:47)
[2019-03-07] MEDS ORDERED: cefTRIAXone SODIUM 2,000 MG/70 ML BAG IV STA (09:49)
[2019-03-07] MEDS ORDERED: ACETAMINOPHEN 1,000 MG/100 ML VIAL IV STA (09:57)
--- NOTE | 2019-03-07 10:22 | XRay Report ---
XR chest 1V portable CLINICAL HISTORY: 83 years-old Female presenting with Sepsis. TECHNIQUE: Portable upright AP view of the chest was obtained. COMPARISON: 12/16/2018. FINDINGS: Atherosclerosis of the aortic arch. Cardiac silhouette borderline enlarged. Heterogeneous lung parenc hyma. Interval decrease and diffuse opacity primarily within the right lung. Persistent underlying re ticular opacities with added parenchymal density. There is vague right perihilar opacity. No large ef fusion or pneumothorax. Degenerative changes of the thoracic spine. Degenerative changes of the gleno humeral joints, left greater than right. Upper abdomen normal. IMPRESSION: 1. Significant interval decrease and diffuse right lung predominant infiltrates though some degree o f infiltrates may remain. 2. Underlying chronic lung disease or congestive change suspected. Electronically signed by: Raciel Nguyen M.D. 03/07/2019 10:21 AM
[2019-03-07 10:49] LABS: Basophils # (auto) 0.05 K/uL (0-0.2); Basophils % (auto) 0.4 %; Hematocrit (blood only) 32.4 % (37-47); Hemoglobin 10.5 g/dL (12.0-16.0); Immature Granulocytes # (auto) 0.02 K/uL (0.00-0.02); Immature Granulocytes % (auto) 0.2 %; Lymphocytes # (auto) 0.86 K/uL (1.2-3.4); Lymphocytes % (auto) 7.4 %; Mean Corpuscular Hemoglobin 31.3 pg (25-34); Mean Corpuscular Hgb Conc 32.4 g/dL (32-36); Mean Corpuscular Volume 96.4 fL (80-100); Mean Platelet Volume 9.9 fL (7.4-10.4); Monocytes # (auto) 0.77 K/uL (0.11-0.59); Monocytes % (auto) 6.6 %; Neutrophils # (auto) 9.92 K/uL (1.4-6.5); Neutrophils % (auto) 85.4 %; Platelet Count 352 K/uL (130-400); RDW Coefficient of Variation 15.4 % (11.5-14.5); RDW Standard Deviation 53.8 fL (36.4-46.3); Red Blood Count 3.36 M/uL (4.2-5.4); White Blood Count 11.62 K/uL (4.8-10.8)
[2019-03-07 11:14] LABS: Albumin Level 3.1 gm/dl (3.4-5.0); BUN Creatinine Ratio 34.3 (10-20); Calcium 8.8 mg/dl (8.5-10.1); Creatinine Clr Calc Pharmacy 13.3 ml/min; Est GFR (African American) 17.4; Potassium 4.9 mmol/L (3.5-5.1)
[2019-03-07 11:17] LABS: Albumin Globulin Ratio 0.7 (0.9-2); Bilirubin,Total 0.5 mg/dl (0.2-1); Globulin 4.4 gm/dl (2.5-4.0); Total Protein 7.5 gm/dl (6.4-8.2)
[2019-03-07] MEDS ORDERED: ONDANSETRON INJ 2 MG/ML 2 ML VIAL IV PRN (12:50)
[2019-03-07 12:51] LABS: Appearance Urine Turbid (Clear); Bilirubin Urine Negative (Negative); Blood Urine Trace (Negative); Color Urine Yellow; Epithelial Cell Urine Auto 20-30 /lpf (0-5); Glucose Urine UA Trace (Negative); Ketones Urine Trace (Negative); Leukocyte Esterase Urine 3+ (Negative); Nitrite Urine Negative (Negative); Protein Urine 1+ (Negative); Specific Gravity Urine 1.022 (1.000-1.030); Urobilinogen Urine Negative (Negative); WBC Urine Automated >30 /hpf (0-5)
[2019-03-07] MEDS ORDERED: NITROGLYCERIN SL 0.4 MG/TAB TAB SL PRN (12:51)
[2019-03-07] MEDS ORDERED: MoRPHine SULFATE 5 MG/0.25 ML UDP SL PRN (12:51)
[2019-03-07] MEDS ORDERED: D5NSS + 20MEQ KCL 20 MEQ/1,000 ML BAG IV SCH (13:00)
--- NOTE | 2019-03-07 13:17 | History & Physical Report ---
Date of Service March 07, 2019 Assessment & Plan (1) UTI (urinary tract infection): Complicated UTI present on admission, likely Black catheter related Urine culture on 03/04/2019 grew pansensitive Klebsiella pneumonia Continue ceftriaxone 1 g IV daily Obtain renal ultrasound to rule out hydronephrosis/perianal abscess After long discussion with and daughter, patient is made full code, they revoked hospice (2) Dehydration: Due to her slight pulmonary congestion and x-ray and history of systolic congestive heart failure We will start IV fluid hydration gently, D5/NSS at 40 cc/h x 1 L We will keep reevaluating patient and give more or less IV fluid as needed (3) Hypoxia: Multifactorial, secondary to severe sepsis and acidosis We will obtain ABG. Also secondary to multifocal pneumonia. (4) Severe sepsis: Trend lactic acid Order procalcitonin Follow-up blood cultures/repeat urine culture (5) Acute systolic heart failure: I believe is more rate related due to tachycardia with a heart rate of about 125 bpm rather than fluid overload We will give a small dose of Lopressor IV 2.5 mg we will hold all her blood pressure medications except Toprol-XL will give her 12.5 mg p.o. daily starting today (6) Multifocal pneumonia: We will continue patient on ceftriaxone Start vancomycin/azithromycin Ordered urine Legionella, if negative can stop azithromycin Ordered sputum culture, light technician can induce sputum Ordered MRSA in the nostril screening, if negative can stop vancomycin (7) Chronic kidney disease, stage 3: Acute kidney injury/chronic kidney disease secondary to dehydration, decreased oral intake Gentle IV fluid hydration with close monitoring for renal function Renal ultrasound ordered (8) CVA (cerebral vascular accident): Continue Plavix and statin Heparin subcu for DVT prophylaxis History of Present Illness Chief Complaint: conFusion change in mental status Primary Care Provider: SEYMOUR Hoffman 83 years old female with past medical history of coronary artery disease, ischemic cardiomyopathy/stress-induced cardiomyopathy, chronic systolic congestive heart failure with ejection fraction of 30 to 35% On an echo on November 2018, CVA with left homonymous hemianopsia, CVAs were bilaterals, suspected LV thrombus as the source of the emboli., chronic Kidney disease stage 3, she was on hospice at home for her congestive heart failure. 1 week ago she started having chills, hospice nurse to obtain urine sample that showed/UTI. She also developed shortness of breath. As per family her oral intake was very poor. She also developed hallucination, confusion and lethargy. She was brought to the ED for further evaluation and management. On review of her UA, on March 04, 2019 it showed large amount of white blood cells, culture grew Klebsiella pneumonia that is pansensitive. Chest x-ray revealed bilateral consolidation with slight congestion.0 Allergies Allergy/AdvReac Type Severity Reaction Status Date / Time amitriptyline Allergy Intermediate BLURRED Verified 03/07/19 10:05 DOUBLE VISION gabapentin Allergy Intermediate SHAKES,VISION Verified 03/07/19 10:05 CHANGES latex Allergy Intermediate SKIN GETS Verified 03/07/19 10:05 RAW-PT HAS NO RECOLLECTION meloxicam Allergy Intermediate DIARRHEA Verified 03/07/19 10:05 metformin Allergy Intermediate HOT FLASHES Verified 03/07/19 10:05 pregabalin Allergy Intermediate DIZZINESS, Verified 03/07/19 10:05 SLEEPY acetaminophen Allergy Mild SWEATING Verified 03/07/19 10:05 pioglitazone Allergy Mild SORE Verified 03/07/19 10:05 THROAT,EAts excessively Cipro Allergy Unknown itshiness,red Verified 06/25/16 17:42 streak ciprofloxacin Allergy Unknown itchiness,red Verified 03/07/19 10:05 streak guaifenesin Allergy Unknown UNKNOWN Verified 03/07/19 10:05 metronidazole Allergy Unknown UNKNOWN Verified 03/07/19 10:05 Penicillins Allergy Unknown INJECTION Verified 03/07/19 10:05 UNKNOWN rofecoxib Allergy Unknown UNKNOWN Verified 03/07/19 10:05 rosuvastatin Allergy Unknown UNKNOWN Verified 03/07/19 10:05 simvastatin Allergy Unknown UNKNOWN Verified 03/07/19 10:05 Sulfa (Sulfonamide Allergy Unknown HIVES Verified 03/07/19 10:05 Antibiotics) tramadol Allergy Unknown SWEATING Verified 03/07/19 10:05 Tricyclic Compounds Allergy Unknown ON WINDY Verified 03/07/19 10:05 [place] Home Medications Home Medications Medication Instructions Recorded Confirmed Type clopidogrel 75 mg tablet 75 mg PO QPM 06/28/18 03/07/19 History topiramate 25 mg tablet 25 mg PO QAM #30 tab 11/05/18 03/07/19 History lisinopril 10 mg PO QAM 12/01/18 03/07/19 History pantoprazole [Protonix] 40 mg PO DAILYBB 12/01/18 03/07/19 History furosemide 20 mg PO QAM #0 tab 12/10/18 03/07/19 Rx polyethylene glycol 3350 [Miralax] 17 g PO BID #60 ea 12/10/18 03/07/19 Rx isosorbide mononitrate 30 mg PO QAM #30 tab 12/21/18 03/07/19 Rx metoprolol succinate [Toprol XL] 100 mg PO DAILY #30 tab 12/21/18 03/07/19 Rx nitroglycerin [Nitrostat] 0.4 mg SUBLINGUAL Q5M PRN #1 btl 12/21/18 03/07/19 Rx morphine concentrate 0 mg SUBLINGUAL UD 03/07/19 03/07/19 History Past Med/Surg History Medical History Anxiety associated with depression (Chronic) Benign recurrent vertigo (Chronic) Bilateral foot-drop (Chronic) Blood clotting disorder (Chronic) Cataract (Resolved) Cholecystectomy planned (Resolved) Chronic GERD (Chronic) Chronic kidney disease, stage 3 (Chronic) Diabetes mellitus type 2 with complications, 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 (Acute) Gastritis (Chronic) H/O diastolic dysfunction (Chronic) H/O: CVA (cerebrovascular accident) (Chronic) HTN (hypertension) (Chronic) Hyperlipidemia (Chronic) Hypokalemia (Chronic) Memory loss (Chronic) Myocardial infarction Nephropathy (Chronic) Neurologic gait dysfunction (Chronic) Osteoarthritis (Chronic) Polyarthritis (Chronic) Resting tremor (Chronic) Right lumbar radiculopathy (Chronic) Sleep apnea (Chronic) Stenosis of right carotid artery (Chronic) Ulcer of right heel (Acute) Urinary frequency (Chronic) Vitamin D deficiency (Chronic) Weight disorder (Chronic) Surgical History H/O: hysterectomy (Resolved) Hx of tonsillectomy (Resolved) S/P cholecystectomy S/P hysterectomy S/P tonsillectomy Family History Mother , in her 80s of a cerebral aneurysm Heart disease Stroke Tremor Father , in his 80s of heart disease Heart disease Other No pertinent family history Social History Preferred Language: Greek Communication Ability: Impaired Communication Ability Comment: decreased mental status Visual Impairment: No Limitations Hearing Ability: Hard of Hearing [employer] Employee Required: No Beliefs That Will Affect Care: None marital status: Current Living Situation: Spouse current occupational status: retired Other Information That Helps Us Care for You: No other: 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 [employer] Feels Safe at Home: Yes Safety Concerns: Feels Safe At This Time Smoking Status: Never smoker Do You Dip or Chew Tobacco: No ; Second Hand Exposure: No ; Tobacco Cessation Education Requested by Patient: No Hx Alcohol Use: No Hx Substance Use: No Review of Systems Review of Systems: Due to patient mental status review of system was unobtainable/unreliable We'll attempt to obtain review of system as needed from staff and family Physical Exam Physical Exam: Physical examination General: Frail elderly female in moderate acute distress HEENT: Atraumatic , normocephalic /no jaundice /no pallor /anicteric /no dry mucous membrane /normal external ear inspection Neck: Supple /no swelling /central trach Heart: S1/S2 tachycardia/regular rate and rhythm/no gallop /no rub /2/6 murmur Lungs: Decreased air entry bilaterally, generalized wheezing both lung irwin, scattered rhonchi, no chest wall tenderness Abdomen: Soft/nontender/no guarding/no rebound/no organomegaly/no pulsatile mass Musculoskeletal: No swelling/no edema/no tenderness/normal range of motion Neuro exam: Lethargic, easily arousable, follows command but appears to be confused, disoriented to time place and persons Psychiatric unable to evaluate Skin: Small healed ulcer in her left heel, stage II decubitus ulcer present on admission, decubitus 2 x 4 cm Extremity: no pitting edema/no clubbing or cyanosis Results & Data Vital Signs (Past 12 Hours) Vital Signs Temp Pulse Resp BP Pulse Ox 03/07/19 11:01 127 H 37 H 117/69 91 03/07/19 11:00 93 03/07/19 10:53 127 H 39 H 103/58 L 87 L 03/07/19 08:45 37.8 C H 124 H 19 140/79 95 03/07/19 08:43 125 H 34 H 140/79 94 Code Status & VTE Plan Code Status As per discussion with patient's and daughter, she is full code, they state that she her wishes is not to live on the machine for the rest of her life but has been wanted us to try resuscitation and even intubation, if we cannot extubate her after few days trial, then we can take the tube out and let nature take its course VTE Prophylaxis Plan VTE Prophylaxis will be ordered: Yes Critical Care Time 35 minutes total time spent is greater than 50% in coordination of care (as documented) at patient's floor/unit and/or counseling patient/family discussion of care with nursing staff (1) UTI (urinary tract infection) Hematuria presence: with hematuria Urinary tract infection type: site unspecified Qualified Code(s): N39.0 - Urinary tract infection, site not specified; R31.9 - Hematuria, unspecified (2) CVA (cerebral vascular accident) CVA mechanism: embolism Precerebral and cerebral artery: posterior cerebral artery Laterality of affected vessel: bilateral Qualified Code(s): I63.433 - Cerebral infarction due to embolism of bilateral posterior cerebral arteries
[2019-03-07 13:22] LABS: Bacteria Urine Automated 1+ (Negative); RBC Urine Automated 0-4 /hpf (0-4)
[2019-03-07 13:28] LABS: Partial Thromboplastin Ratio 0.9; Partial Thromboplastin Time 24.9 Seconds (21.0-31.0); Prothrombin Time 10.5 Seconds (9.0-12.0)
[2019-03-07] MEDS ORDERED: VANCOMYCIN HCL 1,250 MG in SODIUM CHLORIDE 0.9% 250 ML IV SCH (13:30)
[2019-03-07] MEDS ORDERED: AZITHROMYCIN 500 MG in DEXTROSE 5% 250 ML IV ONE (13:30)
[2019-03-07] MEDS ORDERED: VANCOMYCIN CONSULT ACTIVE PRN (14:21)
[2019-03-07] MEDS ORDERED: D5W AND NSS 1,000 ML IV SCH (14:30)
[2019-03-07] MEDS ORDERED: METOPROLOL TARTRATE 1 MG/ML VIAL IV ONE (14:30)
--- NOTE | 2019-03-07 14:43 | Pharmacy Report ---
Pharmacy Abx Initial Consult - Date of Service March 07, 2019 - Pharmacy Dosing Scope Date of Consult: 03/07 Consultation requested by: Dr. Lala Fraser Pharmacy is consulted to initiate vancomycin IV/PO dosing therapy, order appropriate labs and adjust drug dose/frequency. - Subjective The patient is a 83 year old F admitted on 03/07/19 12:46. - Objective Height: 5 ft 4 in Weight: 60.3 kg Vital Signs (Past 12hrs): Vital Signs Temp Pulse Resp BP Pulse Ox 03/07/19 11:01 127 H 37 H 117/69 91 03/07/19 11:00 93 03/07/19 10:53 127 H 39 H 103/58 L 87 L 03/07/19 08:45 37.8 C H 124 H 19 140/79 95 03/07/19 08:43 125 H 34 H 140/79 94 Lab Results (24hrs): Laboratory Tests (24 Hours) 03/07/19 03/07/19 03/07/19 10:29 10:29 10:29 WBC 11.62 H Neut # (Auto) 9.92 H Creatinine 2.81 H Est Cr Clr Drug Dosing 13.3 Procalcitonin 0.20 Micro Results: 03/07/19 12:30 Urine Culture - Pending Urine,Straight Cath 03/07/19 10:29 Aerobic Blood Culture - Pending Blood Anaerobic Blood Culture - Pending 03/07/19 10:23 Aerobic Blood Culture - Pending Blood Anaerobic Blood Culture - Pending - Risk Factors for Resistance * Hospitalization for 48 hours or more within the past 90 days * History of infection with a multidrug-resistant organism: klebsiella urine cx 02/2019, coag neg staph and enteroccocuss foot cx 11/2018) - Assessment & Plan Assessment 83 year old F admitted with chills, increased shortness of breath, urine culture positive for UTI. PMHx significant for CAD, ischemic cardiomyopathy, CHF. Previously at home on hospice for her CHF. Patient developing hallucinations, confusion, lethargy. Broad spectrum antibiotics ordered on admission. Blood cultures x 2 are pending, urine culture pending, MRSA swab pending. Plan Vancomycin IV * Patient received loading dose of vancomycin 1250 mg (~21 mg/kg) iv x 1 * Scr at 2.81 / CRCL ~13 ml/min - patient with stage 3 CKD / baseline appears closer to 2 mg/dl * Will dose by levels until scr remains stable - estimated level tomorrow AM still >15 mcg/ml * Will order a random level in the AM to assist with further dosing Pharmacy will continue to follow and will adjust dose/frequency as necessary. Thank you.
[2019-03-07] MEDS: ISOSORBIDE MONO EXTENDED REL 30 MG TABCR PO SCH (14:58)
[2019-03-07 15:06] LABS: Base Excess ABG -10.5 mEq/L (-9-1.8); HCO3 ABG 13 mmol/L (19-24); PCO2 ABG 23 mmHg (35-46); PO2 ABG 75 mm/Hg (80-95); pH ABG 7.37 (7.35-7.45)
[2019-03-07 15:09] LABS: Allen Test POS (Pos)
[2019-03-07] MEDS: NEOMYCIN/POLYMYX/BACITR OP OINT 3.5 GM TUBE OP SCH ×2 (15:41→20:58)
[2019-03-07] MEDS: METOPROLOL SUCC 25MG EXT REL TAB PO SCH (15:41)
[2019-03-07] MEDS ORDERED: ASPIRIN 81 MG CHEW PO STA (16:29)
--- NOTE | 2019-03-07 16:39 | Emergency Department Note ---
Entered by Vita Terrell acting as a scribe for History of Present Illness General Chief complaint: Lethargic Time Seen by Provider: 03/07/19 09:32 Source: patient and family History of Present Illness Onset (ago): day(s) 3 Location: upper extremity and lower extremity Pain Consistency: + other (worsening) Quality: + other (lethargy) Associated symptoms: + denies other symptoms (abdominal pain), + diaphoresis, + loss of appetite and + other (UTI, unable to walk, not talking much, not drinking much); no cough The patient is an 83 year old female w/ PMHx anxiety, depression, cholecystectomy, GERD, CKD, DM, gastritis, CVA, HTN, HLD, PR, neuropathy, osteoarthritis, and sleep apnea who presents to the ED w/ CC of worsening lethargy starting 3 days ago. The patients states that 3 months ago the patient had 2 heart attacks and a stroke. He states that when they bought her home, he decided to place her on hospice. He reports that over the last 3 days she has been out of it. He states that she has not been able to walk or talk like she was able to 3 days ago. He reports that she has just been lethargic. He states that they decided to check her urine for infection because she was so diaphoretic 3 days ago and it came back positive, so they started her on Keflex. The patients states that he hasnt been able to give them though because they gave him pills that cannot be crushed and she cannot swallow them. He notes that he needs a liquid. He states that he bought her here because he wants her treated and taken off hospice. He reports that he would like to speak to someone to have her signed off of it. The patient complains of loss of appet ite and not drinking much. The patient denies a cough and abdominal pain. Home Medications Home Medications Medication Instructions Recorded Confirmed Type clopidogrel 75 mg tablet 75 mg PO QPM 06/28/18 03/07/19 History topiramate 25 mg tablet 25 mg PO QAM #30 tab 11/05/18 03/07/19 History lisinopril 10 mg PO QAM 12/01/18 03/07/19 History pantoprazole [Protonix] 40 mg PO DAILYBB 12/01/18 03/07/19 History furosemide 20 mg PO QAM #0 tab 12/10/18 03/07/19 Rx polyethylene glycol 3350 [Miralax] 17 g PO BID #60 ea 12/10/18 03/07/19 Rx isosorbide mononitrate 30 mg PO QAM #30 tab 12/21/18 03/07/19 Rx metoprolol succinate [Toprol XL] 100 mg PO DAILY #30 tab 12/21/18 03/07/19 Rx nitroglycerin [Nitrostat] 0.4 mg SUBLINGUAL Q5M PRN #1 btl 12/21/18 03/07/19 Rx morphine concentrate 0 mg SUBLINGUAL UD 03/07/19 03/07/19 History Allergies Allergy/AdvReac Type Severity Reaction Status Date / Time amitriptyline Allergy Intermediate BLURRED Verified 03/07/19 10:05 DOUBLE VISION gabapentin Allergy Intermediate SHAKES,VISION Verified 03/07/19 10:05 CHANGES latex Allergy Intermediate SKIN GETS Verified 03/07/19 10:05 RAW-PT HAS NO RECOLLECTION meloxicam Allergy Intermediate DIARRHEA Verified 03/07/19 10:05 metformin Allergy Intermediate HOT FLASHES Verified 03/07/19 10:05 pregabalin Allergy Intermediate DIZZINESS, Verified 03/07/19 10:05 SLEEPY acetaminophen Allergy Mild SWEATING Verified 03/07/19 10:05 pioglitazone Allergy Mild SORE Verified 03/07/19 10:05 THROAT,EAts excessively Cipro Allergy Unknown itshiness,red Verified 06/25/16 17:42 streak ciprofloxacin Allergy Unknown itchiness,red Verified 03/07/19 10:05 streak guaifenesin Allergy Unknown UNKNOWN Verified 03/07/19 10:05 metronidazole Allergy Unknown UNKNOWN Verified 03/07/19 10:05 Penicillins Allergy Unknown INJECTION Verified 03/07/19 10:05 UNKNOWN rofecoxib Allergy Unknown UNKNOWN Verified 03/07/19 10:05 rosuvastatin Allergy Unknown UNKNOWN Verified 03/07/19 10:05 simvastatin Allergy Unknown UNKNOWN Verified 03/07/19 10:05 Sulfa (Sulfonamide Allergy Unknown HIVES Verified 03/07/19 10:05 Antibiotics) tramadol Allergy Unknown SWEATING Verified 03/07/19 10:05 Tricyclic Compounds Allergy Unknown ON WINDY Verified 03/07/19 10:05 HILL LIST Past Med/Surg History Medical History Anxiety associated with depression (Chronic) Benign recurrent vertigo (Chronic) Bilateral foot-drop (Chronic) Blood clotting disorder (Chronic) Cataract (Resolved) Cholecystectomy planned (Resolved) Chronic GERD (Chronic) Chronic kidney disease, stage 3 (Chronic) Diabetes mellitus type 2 with complications, 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 (Acute) Gastritis (Chronic) H/O diastolic dysfunction (Chronic) H/O: CVA (cerebrovascular accident) (Chronic) HTN (hypertension) (Chronic) Hyperlipidemia (Chronic) Hypokalemia (Chronic) Memory loss (Chronic) Myocardial infarction Nephropathy (Chronic) Neurologic gait dysfunction (Chronic) Osteoarthritis (Chronic) Polyarthritis (Chronic) Resting tremor (Chronic) Right lumbar radiculopathy (Chronic) Sleep apnea (Chronic) Stenosis of right carotid artery (Chronic) Ulcer of right heel (Acute) Urinary frequency (Chronic) Vitamin D deficiency (Chronic) Weight disorder (Chronic) Surgical History H/O: hysterectomy (Resolved) Hx of tonsillectomy (Resolved) S/P cholecystectomy S/P hysterectomy S/P tonsillectomy Family History Mother , in her 80s of a cerebral aneurysm Heart disease Stroke Tremor Father , in his 80s of heart disease Heart disease Other No pertinent family history Social History Preferred Language: Greenlandic Communication Ability: Impaired Visual Impairment: No Limitations Hearing Ability: Hard of Hearing Electric Knife Operator Required: No Beliefs That Will Affect Care: None marital status: Current Living Situation: Spouse current occupational status: retired other: 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 and A total of 10 systems reviewed and were otherwise negative Physical Exam Vital Signs Vital Signs - 24 hr 03/07/19 08:43 03/07/19 08:45 03/07/19 10:53 Temperature 37.8 C H Temperature Source Rectal Pulse Rate 125 H 124 H 127 H Pulse Rate from SpO2 Sensor 125 H 127 H Respiratory Rate 34 H 19 39 H Respiratory Effort / Characteristics Non-Labored Spontaneous Respiratory Depth Normal Blood Pressure 140/79 140/79 103/58 L Blood Pressure Mean 87 99 66 Blood Pressure Position Lying Pulse Oximetry 94 95 87 L Oxygen Delivery Method Room Air Oxygen Flow Rate Sepsis Recent Fever Within 48 Hours No Sepsis Action Taken by Nursing No Action Required Oxygen Flow Rate - Titration Pulse Oximetry Post Tiitration 03/07/19 11:00 03/07/19 11:01 Temperature Temperature Source Pulse Rate 127 H Pulse Rate from SpO2 Sensor 126 H Respiratory Rate 37 H Respiratory Effort / Characteristics Respiratory Depth Blood Pressure 117/69 Blood Pressure Mean 91 Blood Pressure Position Pulse Oximetry 93 91 Oxygen Delivery Method Oxymask Oxygen Flow Rate 7 Sepsis Recent Fever Within 48 Hours Sepsis Action Taken by Nursing Oxygen Flow Rate - Titration 7 Pulse Oximetry Post Tiitration 93 GENERAL: Well nourished, non-toxic. EYE EXAM: Normal conjunctiva. PERRL, no anisocoria and EOM's grossly intact w/o pain. OROPHARYNX: Dry mucous membranes. Grossly normal dentition. NECK: Supple, no nuchal rigidity, no adenopathy, non-tender. No signs of meningismus. LUNGS: Clear to auscultation. Normal chest wall mechanics. HEART: Tachycardic, no MRG. ABDOMEN: Abdomen soft, non-tender, normo-active bowel sounds, no masses, no rebound or guarding. BACK: No CVA TTP. SKIN: No rashes and no bruising. UPPER EXTREMITIES: Upper extremities are grossly normal. LOWER EXTREMITIES: No pitting edema. No calf pain. NEURO EXAM: A&O x3, cranial nerves II-XII grossly intact, normal speech, moves all 4 extremities on command w/o issue. Course Course 0937: The patient was evaluated in room B9. A complete history and physical exam was performed. 0939: Orders were placed and the patient was placed on a environmental monitoring technician. 1031: I discussed the patient's case with Dr. Colvin- [facility] Hospitalist. He will evaluate the patient for further management. 1041: I reevaluated the patient and updated her and her family on her test results. I discussed the treatment plan with them. They verbally agree and understand. Administered Medications Dextrose/Sodium Chloride (D5w And Nss) 1,000 mls @ 50 mls/hr IV .Q20H MINDY Stop: 03/08/19 20:29 Last Admin: 03/07/19 16:03 Dose: 50 mls/hr Documented by: [id number] Isosorbide Mononitrate (Imdur Extended Rel) 30 mg PO QAM [facility] Stop: 04/06/19 12:59 Last Admin: 03/07/19 14:58 Dose: Not Given Documented by: [id number] Metoprolol Succinate (Toprol Xl) 12.5 mg PO DAILY [facility] Stop: 04/06/19 14:44 Last Admin: 03/07/19 15:41 Dose: Not Given Documented by: [id number] Neomycin/Polymyxin/Bacitracin (Shoaib-Polycin Eye Ointment) 1 appln OP TID [facility] Stop: 04/06/19 13:59 Last Admin: 03/07/19 15:41 Dose: 1 appln Documented by: [id number] Discontinued Medications Sodium Chloride (Nss 1000ml) 1,000 mls @ 999 mls/hr IV .Q1H1M ONE Stop: 03/07/19 10:47 Last Infusion: 03/07/19 10:50 Dose: 0 mls/hr Documented by: [id number] Admin: 03/07/19 09:55 Dose: 999 mls/hr Documented by: [id number] Ceftriaxone Sodium (Rocephin) 2,000 mg in 70 mls @ 140 mls/hr IV NOW STA Stop: 03/07/19 10:18 Last Infusion: 03/07/19 11:23 Dose: 0 mls/hr Documented by: [id number] Admin: 03/07/19 10:49 Dose: 140 mls/hr Documented by: [id number] Acetaminophen (Ofirmev) 1,000 mg in 100 mls @ 400 mls/hr IV NOW STA Stop: 03/07/19 10:11 Last Infusion: 03/07/19 10:50 Dose: 0 mls/hr Documented by: [id number] Admin: 03/07/19 10:25 Dose: 400 mls/hr Documented by: [id number] Potassium Chloride/Dextrose/Sod Cl (D5nss + 20meq Kcl) 20 meq in 1,000 mls @ 40 mls/hr IV .Q24H [facility] Stop: 03/08/19 13:59 Last Admin: 03/07/19 15:44 Dose: Not Given Documented by: [id number] Vancomycin HCl 1,250 mg/ (Sodium Chloride) 275 mls @ 125 mls/hr IV 1330 MINDY Stop: 03/07/19 15:41 Last Admin: 03/07/19 14:57 Dose: 125 mls/hr Documented by: [id number] Azithromycin 500 mg/ Dextrose 255 mls @ 125 mls/hr IV 1330 ONE Stop: 03/07/19 15:32 Last Admin: 03/07/19 14:57 Dose: 125 mls/hr Documented by: [id number] Metoprolol Tartrate (Lopressor) 2.5 mg IV ONE ONE Stop: 03/07/19 14:31 Last Admin: 03/07/19 15:39 Dose: 2.5 mg Documented by: [id number] Medical Decision Making Differential Diagnosis Differential Diagnosis includes but is not limited to dehydration, stroke, anemia, hypoglycemia, hyponatremia, hypernatremia, urinary tract infection, pneu monia, bronchitis, sepsis, gastroenteritis, additional abdominal pathology, metabolic abnormalities and infections. Medical Records Attestation: I reviewed the patient's medical records. Home Medications Current Medication List: was personally reviewed by me Laboratory Data Attestation: I reviewed the patient's lab results. Result diagrams: 03/07/19 10:29 03/07/19 10:29 Lab Results 03/07/19 03/07/19 03/07/19 Range/Units 10:29 10:29 10:29 WBC 11.62 H (4.8-10.8) K/uL RBC 3.36 L (4.2-5.4) M/uL Hgb 10.5 L (12.0-16.0) g/dL Hct 32.4 L (37-47) % MCV 96.4 (80-100) fL MCH 31.3 (25-34) pg MCHC 32.4 (32-36) g/dL RDW Std Deviation 53.8 H (36.4-46.3) fL RDW Coeff of Ciera 15.4 H (11.5-14.5) % Plt Count 352 (130-400) K/uL MPV 9.9 (7.4-10.4) fL Immature Gran % (Auto) 0.2 % Neut % (Auto) 85.4 % Lymph % (Auto) 7.4 % Nicholas % (Auto) 6.6 % Eos % (Auto) 0.0 % Baso % (Auto) 0.4 % Immature Gran # (Auto) 0.02 (0.00-0.02) K/uL Neut # (Auto) 9.92 H (1.4-6.5) K/uL Lymph # (Auto) 0.86 L (1.2-3.4) K/uL Nicholas # (Auto) 0.77 H (0.11-0.59) K/uL Eos # (Auto) 0.00 (0-0.5) K/uL Baso # (Auto) 0.05 (0-0.2) K/uL PT Cancelled INR Cancelled APTT Cancelled PTT Ratio Cancelled Sodium 140 (136-145) mmol/L Potassium 4.9 (3.5-5.1) mmol/L Chloride 113 H (98-107) mmol/L Carbon Dioxide 13 L (21-32) mmol/L Anion Gap 14.0 H (3-11) BUN 96 H (7-18) mg/dl Creatinine 2.81 H (0.6-1.2) mg/dl Est Cr Clr Drug Dosing 13.3 ml/min Est GFR ( Amer) 17.4 Est GFR (Non-Af Amer) 15.0 BUN/Creatinine Ratio 34.3 H (10-20) Glucose 214 H (70-99) mg/dl Lactate (0.4-2.0) mmol/L Calcium 8.8 (8.5-10.1) mg/dl Total Bilirubin 0.5 (0.2-1) mg/dl AST 82 H (15-37) U/L ALT 13 (12-78) U/L Alkaline Phosphatase 83 (45-117) U/L Troponin I (0-0.045) ng/ml Total Protein 7.5 (6.4-8.2) gm/dl Albumin 3.1 L (3.4-5.0) gm/dl Globulin 4.4 H (2.5-4.0) gm/dl Albumin/Globulin Ratio 0.7 L (0.9-2) Procalcitonin (0-0.5) ng/ml Urine Color Urine Appearance (Clear) Urine pH (4.5-7.5) Ur Specific [place] (1.000-1.030) Urine Protein (Negative) Urine Glucose (UA) (Negative) Urine Ketones (Negative) Urine Blood (Negative) Urine Nitrite (Negative) Urine Bilirubin (Negative) Urine Urobilinogen (Negative) Ur Leukocyte Esterase (Negative) Urine WBC (Auto) (0-5) /hpf Urine RBC (Auto) (0-4) /hpf U Hyaline Cast (Auto) (0-5) /lpf U Epithel Cells (Auto) (0-5) /lpf Urine Bacteria (Auto) (Negative) Urine Yeast (None Prsent) 03/07/19 03/07/19 03/07/19 Range/Units 10:29 10:29 10:29 WBC (4.8-10.8) K/uL RBC (4.2-5.4) M/uL Hgb (12.0-16.0) g/dL Hct (37-47) % MCV (80-100) fL MCH (25-34) pg MCHC (32-36) g/dL RDW Std Deviation (36.4-46.3) fL RDW Coeff of Ciera (11.5-14.5) % Plt Count (130-400) K/uL MPV (7.4-10.4) fL Immature Gran % (Auto) % Neut % (Auto) % Lymph % (Auto) % Nicholas % (Auto) % Eos % (Auto) % Baso % (Auto) % Immature Gran # (Auto) (0.00-0.02) K/uL Neut # (Auto) (1.4-6.5) K/uL Lymph # (Auto) (1.2-3.4) K/uL Nicholas # (Auto) (0.11-0.59) K/uL Eos # (Auto) (0-0.5) K/uL Baso # (Auto) (0-0.2) K/uL PT INR APTT PTT Ratio Sodium (136-145) mmol/L Potassium (3.5-5.1) mmol/L Chloride (98-107) mmol/L Carbon Dioxide (21-32) mmol/L Anion Gap (3-11) BUN (7-18) mg/dl Creatinine (0.6-1.2) mg/dl Est Cr Clr Drug Dosing ml/min Est GFR ( Amer) Est GFR (Non-Af Amer) BUN/Creatinine Ratio (10-20) Glucose (70-99) mg/dl Lactate 3.4 H* (0.4-2.0) mmol/L Calcium (8.5-10.1) mg/dl Total Bilirubin (0.2-1) mg/dl AST (15-37) U/L ALT (12-78) U/L Alkaline Phosphatase (45-117) U/L Troponin I 11.900 H* (0-0.045) ng/ml Total Protein (6.4-8.2) gm/dl Albumin (3.4-5.0) gm/dl Globulin (2.5-4.0) gm/dl Albumin/Globulin Ratio (0.9-2) Procalcitonin 0.20 (0-0.5) ng/ml Urine Color Urine Appearance (Clear) Urine pH (4.5-7.5) Ur Specific [place] (1.000-1.030) Urine Protein (Negative) Urine Glucose (UA) (Negative) Urine Ketones (Negative) Urine Blood (Negative) Urine Nitrite (Negative) Urine Bilirubin (Negative) Urine Urobilinogen (Negative) Ur Leukocyte Esterase (Negative) Urine WBC (Auto) (0-5) /hpf Urine RBC (Auto) (0-4) /hpf U Hyaline Cast (Auto) (0-5) /lpf U Epithel Cells (Auto) (0-5) /lpf Urine Bacteria (Auto) (Negative) Urine Yeast (None Prsent) 03/07/19 Range/Units 12:30 WBC (4.8-10.8) K/uL RBC (4.2-5.4) M/uL Hgb (12.0-16.0) g/dL Hct (37-47) % MCV (80-100) fL MCH (25-34) pg MCHC (32-36) g/dL RDW Std Deviation (36.4-46.3) fL RDW Coeff of Ciera (11.5-14.5) % Plt Count (130-400) K/uL MPV (7.4-10.4) fL Immature Gran % (Auto) % Neut % (Auto) % Lymph % (Auto) % Nicholas % (Auto) % Eos % (Auto) % Baso % (Auto) % Immature Gran # (Auto) (0.00-0.02) K/uL Neut # (Auto) (1.4-6.5) K/uL Lymph # (Auto) (1.2-3.4) K/uL Nicholas # (Auto) (0.11-0.59) K/uL Eos # (Auto) (0-0.5) K/uL Baso # (Auto) (0-0.2) K/uL PT INR APTT PTT Ratio Sodium (136-145) mmol/L Potassium (3.5-5.1) mmol/L Chloride (98-107) mmol/L Carbon Dioxide (21-32) mmol/L Anion Gap (3-11) BUN (7-18) mg/dl Creatinine (0.6-1.2) mg/dl Est Cr Clr Drug Dosing ml/min Est GFR ( Amer) Est GFR (Non-Af Amer) BUN/Creatinine Ratio (10-20) Glucose (70-99) mg/dl Lactate (0.4-2.0) mmol/L Calcium (8.5-10.1) mg/dl Total Bilirubin (0.2-1) mg/dl AST (15-37) U/L ALT (12-78) U/L Alkaline Phosphatase (45-117) U/L Troponin I (0-0.045) ng/ml Total Protein (6.4-8.2) gm/dl Albumin (3.4-5.0) gm/dl Globulin (2.5-4.0) gm/dl Albumin/Globulin Ratio (0.9-2) Procalcitonin (0-0.5) ng/ml Urine Color Yellow Urine Appearance Turbid A (Clear) Urine pH 5.0 (4.5-7.5) Ur Specific [place] 1.022 (1.000-1.030) Urine Protein 1+ H (Negative) Urine Glucose (UA) Trace H (Negative) Urine Ketones Trace H (Negative) Urine Blood Trace H (Negative) Urine Nitrite Negative (Negative) Urine Bilirubin Negative (Negative) Urine Urobilinogen Negative (Negative) Ur Leukocyte Esterase 3+ H (Negative) Urine WBC (Auto) >30 H (0-5) /hpf Urine RBC (Auto) 0-4 (0-4) /hpf U Hyaline Cast (Auto) 1-5 (0-5) /lpf U Epithel Cells (Auto) 20-30 H (0-5) /lpf Urine Bacteria (Auto) 1+ H (Negative) Urine Yeast Budding A (None Prsent) Imaging Data Radiologist's Impression: Radiology results as stated below per my review and the radiologist's interpretation: XR chest 1V portable CLINICAL HISTORY: 83 years-old Female presenting with Sepsis. TECHNIQUE: Portable upright AP view of the chest was obtained. COMPARISON: 12/16/2018. FINDINGS: Atherosclerosis of the aortic arch. Cardiac silhouette borderline enlarged. Heterogeneous lung parenchyma. Interval decrease and diffuse opacity primarily within the right lung. Persistent underlying reticular opacities with added parenchymal density. There is vague right perihilar opacity. No large effusion or pneumothorax. Degenerative changes of the thoracic spine. Degenerative changes of the glenohumeral joints, left greater than right. Upper abdomen normal. IMPRESSION: 1. Significant interval decrease and diffuse right lung predominant infiltrates though some degree of infiltrates may remain. 2. Underlying chronic lung disease or congestive change suspected. Electronically signed by: Raciel Nguyen M.D. 03/07/2019 10:21 AM ECG Data Attestation: I personally reviewed and interpreted this ECG as follows: Indication: + other (AMS) Rate (beats per minute): 122 Rhythm: + sinus tachycardia ECG Intervals/blocks: + Normal QRS and + Normal QT ECG [place]: + Normal ECG ST segments: + ST depression and + T-wave inversions Comparison ECG Date: from (12/15/18) Change: the following changes noted (ST depressions, TWI old) Blood Pressure Blood Pressure Findings: Elevated blood pressure Blood Pressure Disposition: further management by hospitalist MDM Narrative The patient is an 83 year old female w/ PMHx anxiety, depression, cholecystectomy, GERD, CKD, DM, gastritis, CVA, HTN, HLD, PR, neuropathy, osteoarthritis, and sleep apnea who presents to the ED w/ CC of worsening lethargy starting 3 days ago. Patient was seen and evaluated the bedside. The patient is apparently at home for hospice. The at the bedside states that he would like to revoke this. I did have the case preparer and liner to talk to the patient's family member in order so they fully comprehend any sort of ramifications for revoking hospice. Patient does clinically appear to be very dehydrated. The patient did a blood work completed which shows a mildly elevated white count tracely low hemoglobin which is chronic. The patient does have kidney dysfunction and dehydration. The patient's lactate is 2.2. The patient does have a relatively lower bicarb and slightly elevated blood glucose. Do not believe that this is more DKA and so much of that is related to dehydration. Patient's troponin is elevated. Patient does have EKG changes but the patient is very volume down and likely has an infectious etiology. Believe this may be more related to sepsis. Patient does have chronic elevations in troponin. Patient's urinalysis does appear to be infected with associated yeast. I did review the patient's prior urine cultures virtually pansensitive to the patient was started on Rocephin. I did speak the on-call hospitalist agreed to further evaluate treat the patient. Patient was subsequent admitted to the medicine service. Impression & Plan Sepsis, UTI (urinary tract infection), Dehydration, Hypoxia Discharge Plan Visit Data *Final* Discharge Date/Time: 03/07/19 14:18 Chief Complaint: Lethargic ED Provider: Armando Torres Discharge Problem: Sepsis, UTI (urinary tract infection), Dehydration, Hypoxia Patient Disposition: Admitted As Inpatient Discharge Instructions Interventions: ED Discharge Assessment Last Done: 03/07/19 14:18 Discharge Problem: Sepsis Qualifiers: Sepsis type: sepsis due to unspecified organism Sepsis acute organ dysfunction status: unspecified Qualified Code(s): A41.9 - Sepsis, unspecified organism UTI (urinary tract infection) Qualifiers: Urinary tract infection type: site unspecified Hematuria presence: with hematuria Qualified Code(s): N39.0 - Urinary tract infection, site not specified The scribe's documentation has been prepared under my direction and personally reviewed by me in its entirety. I confirm that the note above accurately reflects all work, treatment, procedures, and medical decision making performed by me.
[2019-03-07] MEDS ORDERED: HEPARIN IV BOLUS 5,000 UNITS in SYRINGE 0 ML IV ONE (17:45)
--- NOTE | 2019-03-07 17:52 | Ultrasound Report ---
EXAMINATION: RENAL ULTRASOUND CLINICAL HISTORY: Chronic renal disease STAGE 3 COMPARISON STUDY: 07/01/2016 FINDINGS: The right kidney measures 8.6 cm. The left kidney measures 7.4 cm. There is no evidence of hydronephrosis. Left kidney is echogenic consistent with medical renal disease. There is a 12 mm le ft renal cyst. There is left renal cortical thinning. No bladder abnormalities are visualized. Bilateral ureteral jets were visualized. A Black catheter w as visualized. IMPRESSION : 1. No evidence of hydronephrosis 2. Increased left renal cortical echogenicity consistent with medical renal disease. Electronically signed by: Dru Harmon M.D. 03/07/2019 5:51 PM
[2019-03-07] MEDS: HEPARIN SODIUM/DEXTROSE 25,000 UNITS/500 ML BAG IV SCH (18:47)
[2019-03-07] MEDS: LACTOBACILLUS ACIDOPHILUS 1 GM PACK PO SCH (18:49)
[2019-03-07] MEDS: NITROGLYCERIN 2% OINTMENT 30GM TUBE EXT SCH ×2 (18:58→23:42)
[2019-03-07] MEDS: CLOPIDOGREL BISULFATE 75 MG TAB PO SCH (20:42)
[2019-03-07] MEDS: LORazepam 0.5 MG/1 ML VIAL IV STA ×2 (20:57→23:42)
[2019-03-07] MEDS ORDERED: HEPARIN SOD 5,000 UNIT/0.5 ML VIAL SQ SCH (21:00)
[2019-03-08] MEDS ORDERED: METOPROLOL TARTRATE 1 MG/ML VIAL IV STA ×3 (00:34→18:07)
[2019-03-08 01:25] LABS: Partial Thromboplastin Ratio 4.6
[2019-03-08 01:44] LABS: Partial Thromboplastin Time 123.8 Seconds (21.0-31.0)
[2019-03-08] MEDS: NITROGLYCERIN 2% OINTMENT 30GM TUBE EXT SCH ×4 (04:41→22:10)
[2019-03-08 07:50] LABS: Creatinine Clr Calc Pharmacy 15.9 ml/min; Est GFR (African American) 21.6; Est GFR (Non-African American) 18.7
[2019-03-08 07:57] LABS: Troponin I 24.2 ng/ml (0-0.045)
[2019-03-08] MEDS ORDERED: INFLUENZA Vaccine HIGH DOSE 65+yrs 0.5 mL Syr IM ONE (08:30)
[2019-03-08] MEDS: LACTOBACILLUS ACIDOPHILUS 1 GM PACK PO SCH ×3 (08:47→16:17)
[2019-03-08] MEDS: NEOMYCIN/POLYMYX/BACITR OP OINT 3.5 GM TUBE OP SCH ×3 (08:48→22:11)
[2019-03-08] MEDS: cefTRIAXone SODIUM 1,000 MG in DEXTROSE 5% 50 ML IV SCH (08:48)
[2019-03-08] MEDS: ASPIRIN 81 MG ECTAB PO SCH (08:50)
[2019-03-08] MEDS: METOPROLOL SUCC 25MG EXT REL TAB PO SCH (08:50)
[2019-03-08] MEDS: ISOSORBIDE MONO EXTENDED REL 30 MG TABCR PO SCH (08:50)
--- NOTE | 2019-03-08 09:00 | Pharmacy Report ---
Pharmacy Abx Dose Short Note - Date of Service March 08, 2019 - Assessment & Plan Assessment 83 year old F receiving vancomycin for treatment of pulmonary source. Day # 2/7 of antimicrobial therapy. UC and BC are both pending. MRSA nares are (+). Given its poor positive predicative value, will reach out to hospitalist to discuss if clinical presentation is indicative of true MRSA PNA. Renal fxn remains close to CKD V. Will give vanco pursuant to random lvls. Plan Vancomycin * Trough level of 15.0 mcg/mL is therapeutic * We will provide Vancomycin 750mg (12mg/kg) X1 today * Goal trough level for pulm source : 15 to 20 mcg/mL * Random level ordered for: 12/11 with AM labs Pharmacy will continue to follow and will adjust dose/frequency as necessary. Thank you.
[2019-03-08] MEDS ORDERED: METOPROLOL TARTRATE 1 MG/ML VIAL IV PRN ×2 (09:16→19:27)
--- NOTE | 2019-03-08 09:23 | Cardiology Consultation ---
Date of Consultation March 08, 2019 Assessment & Plan (1) NSTEMI (non-ST elevated myocardial infarction): 2. Critical multivessel coronary disease 3. UTI with sepsis 5. Acute renal insufficiency 6. History of CVA 7. Ischemic cardiomyopathy with chronic CHF 8. Diabetes 9. Peripheral arterial disease Patient with complex medical history including critical multivessel CAD. Troponin elevated consistent with NSTEMI in setting of UTI/sepsis. Continue medical management of coronary disease. On exam well perfused without signs of significant vascular congestion. Evidence of acute renal insufficiency and patient has been gently hydrated. Monitor fluid status closely due to cardiomyopathy and history of CHF. Sinus tachycardia likely secondary to sepsis/volume depletion. Can consider increasing metoprolol succinate to 25 mg daily if needed. Family plans to resume hospice at discharge. History of Present Illness Attending Physician: Liu Godwin DO History of Present Illness Mrs. Jay is 83-year-old woman with history of critical multivessel coronary artery disease, ischemic cardiomyopathy, chronic systolic CHF and CVA. Patient is on hospice. She was admitted to [facility] in November with NSTEMI. She underwent cardiac cath revealed severe, complex multivessel coronary artery disease including ostial left main, ostial circumflex and critical ostial RCA disease. LAD with a small vessel with a possibly acute 70% mid segment lesion. She was not felt to be a surgical candidate. Echo showed moderate LV dysfunction and apical akinesis. Hospitalization was complicated by bilateral occipital strokes 2 days post catheterization. Patient was readmitted shortly after discharge with respiratory failure and chest pain. She had evidence of florid pulmonary edema and required intubation. She was sent home on hospice. She was admitted yesterday with UTI and sepsis. Patient arousable during my exam but not alert or answering questions. History provided by and daughter at bedside. They report that over the past few months she has been bed bound and somnolent but generally able to carry on appropriate conversation. About one week ago became confused and requested a urine culture be done by hospice. This was positive for Klebsiella. Hospice attempted to give antibiotics but patient could not swallow pills so family decided to bring her to the ED. Upon admission was febrile with elevated WBC and lactic acid. She was also felt to be dehydrated with elevated BUN/Cr. Per family po intake has been very poor. She has given gentle hydration. Troponin is elevated. EKG with nonspecific ST abnormality. Her reports patient complained of an episode of chest pain about one week ago relieved by morphine. Family states they likely will resume hospice when patient is discharged. Allergies Allergy/AdvReac Type Severity Reaction Status Date / Time amitriptyline Allergy Intermediate BLURRED Verified 03/07/19 10:05 DOUBLE VISION gabapentin Allergy Intermediate SHAKES,VISION Verified 03/07/19 10:05 CHANGES latex Allergy Intermediate SKIN GETS Verified 03/07/19 10:05 RAW-PT HAS NO RECOLLECTION meloxicam Allergy Intermediate DIARRHEA Verified 03/07/19 10:05 metformin Allergy Intermediate HOT FLASHES Verified 03/07/19 10:05 pregabalin Allergy Intermediate DIZZINESS, Verified 03/07/19 10:05 SLEEPY acetaminophen Allergy Mild SWEATING Verified 03/07/19 10:05 pioglitazone Allergy Mild SORE Verified 03/07/19 10:05 THROAT,EAts excessively Cipro Allergy Unknown itshiness,red Verified 06/25/16 17:42 streak ciprofloxacin Allergy Unknown itchiness,red Verified 03/07/19 10:05 streak guaifenesin Allergy Unknown UNKNOWN Verified 03/07/19 10:05 metronidazole Allergy Unknown UNKNOWN Verified 03/07/19 10:05 Penicillins Allergy Unknown INJECTION Verified 03/07/19 10:05 UNKNOWN rofecoxib Allergy Unknown UNKNOWN Verified 03/07/19 10:05 rosuvastatin Allergy Unknown UNKNOWN Verified 03/07/19 10:05 simvastatin Allergy Unknown UNKNOWN Verified 03/07/19 10:05 Sulfa (Sulfonamide Allergy Unknown HIVES Verified 03/07/19 10:05 Antibiotics) tramadol Allergy Unknown SWEATING Verified 03/07/19 10:05 Tricyclic Compounds Allergy Unknown ON WINDY Verified 03/07/19 10:05 [facility] Home Medications Home Medications Medication Instructions Recorded Confirmed Type clopidogrel 75 mg tablet 75 mg PO QPM 06/28/18 03/07/19 History topiramate 25 mg tablet 25 mg PO QAM #30 tab 11/05/18 03/07/19 History lisinopril 10 mg PO QAM 12/01/18 03/07/19 History pantoprazole [Protonix] 40 mg PO DAILYBB 12/01/18 03/07/19 History furosemide 20 mg PO QAM #0 tab 12/10/18 03/07/19 Rx polyethylene glycol 3350 [Miralax] 17 g PO BID #60 ea 12/10/18 03/07/19 Rx isosorbide mononitrate 30 mg PO QAM #30 tab 12/21/18 03/07/19 Rx metoprolol succinate [Toprol XL] 100 mg PO DAILY #30 tab 12/21/18 03/07/19 Rx nitroglycerin [Nitrostat] 0.4 mg SUBLINGUAL Q5M PRN #1 btl 12/21/18 03/07/19 Rx morphine concentrate 0 mg SUBLINGUAL UD 03/07/19 03/07/19 History Patient History Medical History Anxiety associated with depression (Chronic) Benign recurrent vertigo (Chronic) Bilateral foot-drop (Chronic) Blood clotting disorder (Chronic) Cataract (Resolved) Cholecystectomy planned (Resolved) Chronic GERD (Chronic) Chronic kidney disease, stage 3 (Chronic) Diabetes mellitus type 2 with complications, 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 (Acute) Gastritis (Chronic) H/O diastolic dysfunction (Chronic) H/O: CVA (cerebrovascular accident) (Chronic) HTN (hypertension) (Chronic) Hyperlipidemia (Chronic) Hypokalemia (Chronic) Memory loss (Chronic) Myocardial infarction Nephropathy (Chronic) Neurologic gait dysfunction (Chronic) Osteoarthritis (Chronic) Polyarthritis (Chronic) Resting tremor (Chronic) Right lumbar radiculopathy (Chronic) Sleep apnea (Chronic) Stenosis of right carotid artery (Chronic) Ulcer of right heel (Acute) Urinary frequency (Chronic) Vitamin D deficiency (Chronic) Weight disorder (Chronic) Surgical History H/O: hysterectomy (Resolved) Hx of tonsillectomy (Resolved) S/P cholecystectomy S/P hysterectomy S/P tonsillectomy Family History Mother , in her 80s of a cerebral aneurysm Heart disease Stroke Tremor Father , in his 80s of heart disease Heart disease Other No pertinent family history Social History Preferred Language: Hungarian Communication Ability: Impaired Visual Impairment: No Limitations Hearing Ability: Hard of Hearing Client Services Associate Required: No Beliefs That Will Affect Care: None marital status: Current Living Situation: Spouse current occupational status: retired other: 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 Physical Exam Physical Exam: General: No acute distress HEENT: Sclerae anicteric. Neck: No appreciable JVD. Lungs: Course breath sounds without rales, rhonchi or wheezes. Cardiac: Tachycardic. Regular. No murmur, gallop or rub. Extremities/vascular: Well perfused. No significant edema Skin: No rash Neurologic: Arousable, non alert. Results & Data Vital Signs (Past 12 Hours) Vital Signs Temp Pulse Pulse Pulse Resp BP BP 03/08/19 07:28 36.3 C L 113 H 18 127/72 03/08/19 05:52 128 H 123/79 03/08/19 04:30 36.4 C L 124 H 28 H 139/85 03/08/19 00:59 124 H 137/82 03/07/19 23:22 36.3 C L 108 H 20 111/70 Pulse Ox 03/08/19 07:28 91 03/08/19 05:52 03/08/19 04:30 94 03/08/19 00:59 03/07/19 23:22 92 Laboratory Results Laboratory Results - last 24 hr 03/07/19 03/07/19 03/07/19 10:29 10:29 10:29 WBC 11.62 H RBC 3.36 L Hgb 10.5 L Hct 32.4 L MCV 96.4 MCH 31.3 MCHC 32.4 RDW Std Deviation 53.8 H RDW Coeff of Ciera 15.4 H Plt Count 352 MPV 9.9 Immature Gran % (Auto) 0.2 Neut % (Auto) 85.4 Lymph % (Auto) 7.4 Cabell % (Auto) 6.6 Eos % (Auto) 0.0 Baso % (Auto) 0.4 Immature Gran # (Auto) 0.02 Neut # (Auto) 9.92 H Lymph # (Auto) 0.86 L [place] # (Auto) 0.77 H Eos # (Auto) 0.00 Baso # (Auto) 0.05 PT Cancelled INR Cancelled APTT Cancelled PTT Ratio Cancelled ABG pH ABG pCO2 ABG pO2 ABG HCO3 ABG O2 Saturation ABG Base Excess Jorge Test Barometric Pressure Oxygen Given Sodium 140 Potassium 4.9 Chloride 113 H Carbon Dioxide 13 L Anion Gap 14.0 H BUN 96 H Creatinine 2.81 H Est Cr Clr Drug Dosing 13.3 Est GFR ( Amer) 17.4 Est GFR (Non-Af Amer) 15.0 BUN/Creatinine Ratio 34.3 H Glucose 214 H Lactate Calcium 8.8 Total Bilirubin 0.5 AST 82 H ALT 13 Alkaline Phosphatase 83 Troponin I Total Protein 7.5 Albumin 3.1 L Globulin 4.4 H Albumin/Globulin Ratio 0.7 L Procalcitonin Urine Color Urine Appearance Urine pH Ur Specific [place] Urine Protein Urine Glucose (UA) Urine Ketones Urine Blood Urine Nitrite Urine Bilirubin Urine Urobilinogen Ur Leukocyte Esterase Urine WBC (Auto) Urine RBC (Auto) U Hyaline Cast (Auto) U Epithel Cells (Auto) Urine Bacteria (Auto) Urine Yeast Nasal Screen MRSA (PCR) Random Vancomycin Urine Legionella Ag 03/07/19 03/07/19 03/07/19 10:29 10:29 10:29 WBC RBC Hgb Hct MCV MCH MCHC RDW Std Deviation RDW Coeff of Ciera Plt Count MPV Immature Gran % (Auto) Neut % (Auto) Lymph % (Auto) [place] % (Auto) Eos % (Auto) Baso % (Auto) Immature Gran # (Auto) Neut # (Auto) Lymph # (Auto) [place] # (Auto) Eos # (Auto) Baso # (Auto) PT INR APTT PTT Ratio ABG pH ABG pCO2 ABG pO2 ABG HCO3 ABG O2 Saturation ABG Base Excess Jorge Test Barometric Pressure Oxygen Given Sodium Potassium Chloride Carbon Dioxide Anion Gap BUN Creatinine Est Cr Clr Drug Dosing Est GFR ( Amer) Est GFR (Non-Af Amer) BUN/Creatinine Ratio Glucose Lactate 3.4 H* Calcium Total Bilirubin AST ALT Alkaline Phosphatase Troponin I 11.900 H* Total Protein Albumin Globulin Albumin/Globulin Ratio Procalcitonin 0.20 Urine Color Urine Appearance Urine pH Ur Specific [place] Urine Protein Urine Glucose (UA) Urine Ketones Urine Blood Urine Nitrite Urine Bilirubin Urine Urobilinogen Ur Leukocyte Esterase Urine WBC (Auto) Urine RBC (Auto) U Hyaline Cast (Auto) U Epithel Cells (Auto) Urine Bacteria (Auto) Urine Yeast Nasal Screen MRSA (PCR) Random Vancomycin Urine Legionella Ag 03/07/19 03/07/19 03/07/19 12:30 13:05 13:05 WBC RBC Hgb Hct MCV MCH MCHC RDW Std Deviation RDW Coeff of Ciera Plt Count MPV Immature Gran % (Auto) Neut % (Auto) Lymph % (Auto) [place] % (Auto) Eos % (Auto) Baso % (Auto) Immature Gran # (Auto) Neut # (Auto) Lymph # (Auto) [place]ell # (Auto) Eos # (Auto) Baso # (Auto) PT 10.5 INR 1.0 APTT 24.9 PTT Ratio 0.9 ABG pH ABG pCO2 ABG pO2 ABG HCO3 ABG O2 Saturation ABG Base Excess Jorge Test Barometric Pressure Oxygen Given Sodium Potassium Chloride Carbon Dioxide Anion Gap BUN Creatinine Est Cr Clr Drug Dosing Est GFR ( Amer) Est GFR (Non-Af Amer) BUN/Creatinine Ratio Glucose Lactate 2.2 H* Calcium Total Bilirubin AST ALT Alkaline Phosphatase Troponin I Total Protein Albumin Globulin Albumin/Globulin Ratio Procalcitonin Urine Color Yellow Urine Appearance Turbid A Urine pH 5.0 Ur Specific [place] 1.022 Urine Protein 1+ H Urine Glucose (UA) Trace H Urine Ketones Trace H Urine Blood Trace H Urine Nitrite Negative Urine Bilirubin Negative Urine Urobilinogen Negative Ur Leukocyte Esterase 3+ H Urine WBC (Auto) >30 H Urine RBC (Auto) 0-4 U Hyaline Cast (Auto) 1-5 U Epithel Cells (Auto) 20-30 H Urine Bacteria (Auto) 1+ H Urine Yeast Budding A Nasal Screen MRSA (PCR) Random Vancomycin Urine Legionella Ag 03/07/19 03/07/19 03/07/19 14:44 17:10 17:10 WBC RBC Hgb Hct MCV MCH MCHC RDW Std Deviation RDW Coeff of Ciera Plt Count MPV Immature Gran % (Auto) Neut % (Auto) Lymph % (Auto) [place] % (Auto) Eos % (Auto) Baso % (Auto) Immature Gran # (Auto) Neut # (Auto) Lymph # (Auto) [place] # (Auto) Eos # (Auto) Baso # (Auto) PT INR APTT PTT Ratio ABG pH 7.37 ABG pCO2 23 L ABG pO2 75 L ABG HCO3 13 L ABG O2 Saturation 95.0 ABG Base Excess -10.5 L Jorge Test POS Barometric Pressure 727.5 Oxygen Given ROOM AIR Sodium Potassium Chloride Carbon Dioxide Anion Gap BUN Creatinine Est Cr Clr Drug Dosing Est GFR ( Amer) Est GFR (Non-Af Amer) BUN/Creatinine Ratio Glucose Lactate Calcium Total Bilirubin AST ALT Alkaline Phosphatase Troponin I Total Protein Albumin Globulin Albumin/Globulin Ratio Procalcitonin Urine Color Urine Appearance Urine pH Ur Specific [place] Urine Protein Urine Glucose (UA) Urine Ketones Urine Blood Urine Nitrite Urine Bilirubin Urine Urobilinogen Ur Leukocyte Esterase Urine WBC (Auto) Urine RBC (Auto) U Hyaline Cast (Auto) U Epithel Cells (Auto) Urine Bacteria (Auto) Urine Yeast Nasal Screen MRSA (PCR) Positive A Random Vancomycin Urine Legionella Ag Pending 03/07/19 03/08/19 03/08/19 19:48 00:53 00:53 WBC RBC Hgb Hct MCV MCH MCHC RDW Std Deviation RDW Coeff of Ciera Plt Count MPV Immature Gran % (Auto) Neut % (Auto) Lymph % (Auto) [place] % (Auto) Eos % (Auto) Baso % (Auto) Immature Gran # (Auto) Neut # (Auto) Lymph # (Auto) [place] # (Auto) Eos # (Auto) Baso # (Auto) PT INR APTT 123.8 H* PTT Ratio 4.6 ABG pH ABG pCO2 ABG pO2 ABG HCO3 ABG O2 Saturation ABG Base Excess Jorge Test Barometric Pressure Oxygen Given Sodium Potassium Chloride Carbon Dioxide Anion Gap BUN Creatinine Est Cr Clr Drug Dosing Est GFR ( Amer) Est GFR (Non-Af Amer) BUN/Creatinine Ratio Glucose Lactate Calcium Total Bilirubin AST ALT Alkaline Phosphatase Troponin I 19.200 H* 24.200 H* Total Protein Albumin Globulin Albumin/Globulin Ratio Procalcitonin Urine Color Urine Appearance Urine pH Ur Specific [place] Urine Protein Urine Glucose (UA) Urine Ketones Urine Blood Urine Nitrite Urine Bilirubin Urine Urobilinogen Ur Leukocyte Esterase Urine WBC (Auto) Urine RBC (Auto) U Hyaline Cast (Auto) U Epithel Cells (Auto) Urine Bacteria (Auto) Urine Yeast Nasal Screen MRSA (PCR) Random Vancomycin Urine Legionella Ag 03/08/19 03/08/19 03/08/19 07:04 07:04 09:08 WBC RBC Hgb Hct MCV MCH MCHC RDW Std Deviation RDW Coeff of Ciera Plt Count MPV Immature Gran % (Auto) Neut % (Auto) Lymph % (Auto) [place] % (Auto) Eos % (Auto) Baso % (Auto) Immature Gran # (Auto) Neut # (Auto) Lymph # (Auto) [place] # (Auto) Eos # (Auto) Baso # (Auto) PT INR APTT PTT Ratio ABG pH ABG pCO2 ABG pO2 ABG HCO3 ABG O2 Saturation ABG Base Excess Jorge Test Barometric Pressure Oxygen Given Sodium Potassium Chloride Carbon Dioxide Anion Gap BUN Creatinine 2.35 H D Est Cr Clr Drug Dosing 15.9 Est GFR ( Amer) 21.6 Est GFR (Non-Af Amer) 18.7 BUN/Creatinine Ratio Glucose Lactate 1.6 Calcium Total Bilirubin AST ALT Alkaline Phosphatase Troponin I 24.200 H* Total Protein Albumin Globulin Albumin/Globulin Ratio Procalcitonin Urine Color Urine Appearance Urine pH Ur Specific [place] Urine Protein Urine Glucose (UA) Urine Ketones Urine Blood Urine Nitrite Urine Bilirubin Urine Urobilinogen Ur Leukocyte Esterase Urine WBC (Auto) Urine RBC (Auto) U Hyaline Cast (Auto) U Epithel Cells (Auto) Urine Bacteria (Auto) Urine Yeast Nasal Screen MRSA (PCR) Random Vancomycin 15.0 Urine Legionella Ag 03/08/19 09:08 WBC RBC Hgb Hct MCV MCH MCHC RDW Std Deviation RDW Coeff of Ciera Plt Count MPV Immature Gran % (Auto) Neut % (Auto) Lymph % (Auto) [place] % (Auto) Eos % (Auto) Baso % (Auto) Immature Gran # (Auto) Neut # (Auto) Lymph # (Auto) [place] # (Auto) Eos # (Auto) Baso # (Auto) PT INR APTT 66.8 H* PTT Ratio 2.5 ABG pH ABG pCO2 ABG pO2 ABG HCO3 ABG O2 Saturation ABG Base Excess Jorge Test Barometric Pressure Oxygen Given Sodium Potassium Chloride Carbon Dioxide Anion Gap BUN Creatinine Est Cr Clr Drug Dosing Est GFR ( Amer) Est GFR (Non-Af Amer) BUN/Creatinine Ratio Glucose Lactate Calcium Total Bilirubin AST ALT Alkaline Phosphatase Troponin I Total Protein Albumin Globulin Albumin/Globulin Ratio Procalcitonin Urine Color Urine Appearance Urine pH Ur Specific [place] Urine Protein Urine Glucose (UA) Urine Ketones Urine Blood Urine Nitrite Urine Bilirubin Urine Urobilinogen Ur Leukocyte Esterase Urine WBC (Auto) Urine RBC (Auto) U Hyaline Cast (Auto) U Epithel Cells (Auto) Urine Bacteria (Auto) Urine Yeast Nasal Screen MRSA (PCR) Random Vancomycin Urine Legionella Ag ECG Additional Comments: Tele reviewed- sinus tachycardia low 100s to 130s PG Care Time/CCT Total # of Minutes Spent Total Time Spent with Patient: Total time spent is greater than 50% in coordination of care (as documented) at patient's floor/unit and/or counseling patient:
[2019-03-08 09:39] LABS: Partial Thromboplastin Ratio 2.5
[2019-03-08 09:40] LABS: Partial Thromboplastin Time 66.8 Seconds (21.0-31.0)
--- NOTE | 2019-03-08 09:46 | Hospitalist Progress Note ---
Date of Service March 08, 2019 Assessment & Plan (1) Complicated UTI (urinary tract infection): 83 yo F PMH recent CVA, recent AZ, HLD, DM2 causing ulcerations, HFrEF, CKD stage 3 who was previously hospice after last hospital admission and is currently DNR/DNI. 1) Complicated UTI causing AMS - Urine culture grew pansensitive Klebsiella; treating with Ceftriaxone - Indwelling robbins changed upon admission in the ED - soft elevated WBC at 11.62; will trend and continue to monitor. Does not appear to be septic at this point 2) NSTEMI - elevated troponins x3, plateaued at 24.2 - evaluated by cardiology team; medical management best option going forward as patient likely wouldn't benefit from catheterization - EKG showed Q waves and indications of prior anterior inferior AZ - continue heparin drip and telemetry monitoring - O2 as needed - IV metoprolol - Dual antiplatelet coverage with aspirin and plavix 3) LEEANN on CKD stage 3 - Cr 2.81 on admission, improved to 2.35 with gentle hydration of D5W NS at 80ml/hr - will continue to gently hydrate and monitor Cr and UOP - LEEANN likely secondary to poor forward flow from systolic CHF - renal ultrasound in ED showed no sign of hydronephrosis or obstruction 4) HFrEF (30-35%) - CXR shows some degree of pulmonary edema and disease, improved from a prior encounter - strict I/Os - daily weights 5) Tachycardia - secondary to dehydration vs. complicated UTI - IV metoprolol ordered PRN for rates >125 6) Malnutrition - patient is frail and weak - evaluation by speech today; appreciate recommendations regarding diet and swallowing abilities - will attempt bedside swallow eval tomorrow - patient would likely benefit from nutritional supplementation FEN/GI: NPO, D5 NS 80 ml/hr DVT ppx: heparin drip Dispo: Telemetry monitoring CODE STATUS: DNR/DNI (2) Dehydration: (3) Multi-vessel coronary artery stenosis: (4) Diabetic polyneuropathy: (5) Hemianopia, homonymous, left: (6) NSTEMI (non-ST elevated myocardial infarction): (7) Anemia: (8) Chronic kidney disease, stage 3: Supervising Physician Co-Signing Physician Notes I personally examined the patient and verified all ruiz points of history and exam, discussed case, and agree with decision making with Dr Orozco. no meaningful HPI or ROS obtainable from pt but seems to be feeling better. notes she's looking better. nursing notes she's looking better. vitals noted nad heent nc at mmm lungs overal cta b/l maybe faint faint base ra les no rhonchi no wheeze good effort rales most c/w atelectasis in quality and distribution. no pallor or icterus. UTMI - klebsiella as infection, showing improving s/s sepsis. ceftriaxone for abx since sensitive. initial concern on pneumonia as well but after further review seems unlikely to be the case - can de-escalate abx and follow clinically. AZ - NSTEMI likely severe demand ischemia mechanism superimposed on severe diffuse CAD - sepsis precipitated metabolic stress leading to AZ. med management as best as possible to balance supply /demand. ongoing supportive care, fluids for LEEANN on CKD Subjective 83 yo F PMH recent CVA, recent AZ, HLD, DM2 causing ulcerations, HFrEF, CKD stage 3 who was previously hospice after last hospital admission. For past few days has been increasingly disoriented and not acting like herself per family. Patient has a chronic indwelling robbins catheter that family had the home health nurse send for culture a few days ago. With increasing disorientation and the patient not eating food or drinking for past 2 days, family brought her in for treatment. Urine culture from 03/04 grew pansensitive Klebsiella. Patient was admitted for elevated troponins and sepsis. Patient this morning is responsive when being spoken to, however speech is somewhat garbled and hard to discern. She is disoriented to person, place and time. ROS limited by patient's mentation. Had extensive conversation in the room this morning with who is POA, and daughter regarding patient's code status. After discussion of the patient wanting to go peacefully, agreement was reached that she would not want to be resuscitated or intubated or undergo dialysis. As such, she was made DNR/DNI. Family still wants to proceed with treatment of infection as it is likely temporary and could reversably improve mentation as she was functional and aware of surroundings prior to decompensation. Review of Systems Review of Systems: Unobtainable due to cognitive status Physical Exam Constitutional: Lying in bed moaning, purposeful movements with hands Eyes: PERRL, conjunctivae normal, anicteric sclerae Respiratory: normal respiratory effort, lungs clear to auscultation no retractions and no cough Auscultation: no crackles, no rhonchi and no wheezes Increased effort of breathing when trying to talk, otherwise normal respiratory effort Cardiovascular: Rate/Rhythm: regular rhythm and + tachycardic Heart Sounds: normal S2; no click, no gallop and no murmur Extremities: no calf tenderness and no pedal edema Gastrointestinal (Abdomen): normal bowel sounds, soft, nontender, no hepatosplenomegaly Results & Data Vital Signs (Past 12 Hours) Vital Signs Temp Pulse Pulse Pulse Resp BP BP 03/08/19 07:28 36.3 C L 113 H 18 127/72 03/08/19 05:52 128 H 123/79 03/08/19 04:30 36.4 C L 124 H 28 H 139/85 03/08/19 00:59 124 H 137/82 03/07/19 23:22 36.3 C L 108 H 20 111/70 Pulse Ox 03/08/19 07:28 91 03/08/19 05:52 03/08/19 04:30 94 03/08/19 00:59 03/07/19 23:22 92 03/08/19 03/08/19 03/08/19 Range/Units 15:36 09:08 09:08 APTT 62.1 H* 66.8 H* (21.0-31.0) Seconds PTT Ratio 2.3 2.5 Creatinine (0.6-1.2) mg/dl Est Cr Clr Drug Dosing ml/min Est GFR ( Amer) Est GFR (Non-Af Amer) Lactate 1.6 (0.4-2.0) mmol/L Troponin I (0-0.045) ng/ml Procalcitonin (0-0.5) ng/ml Nasal Screen MRSA (PCR) (Negative) Random Vancomycin mcg/ml 03/08/19 03/08/19 03/08/19 Range/Units 07:04 07:04 07:00 APTT (21.0-31.0) Seconds PTT Ratio Creatinine 2.35 H D (0.6-1.2) mg/dl Est Cr Clr Drug Dosing 15.9 ml/min Est GFR ( Amer) 21.6 Est GFR (Non-Af Amer) 18.7 Lactate (0.4-2.0) mmol/L Troponin I 24.200 H* (0-0.045) ng/ml Procalcitonin 0.30 (0-0.5) ng/ml Nasal Screen MRSA (PCR) (Negative) Random Vancomycin 15.0 mcg/ml 03/08/19 03/08/19 03/07/19 Range/Units 00:53 00:53 19:48 APTT 123.8 H* (21.0-31.0) Seconds PTT Ratio 4.6 Creatinine (0.6-1.2) mg/dl Est Cr Clr Drug Dosing ml/min Est GFR ( Amer) Est GFR (Non-Af Amer) Lactate (0.4-2.0) mmol/L Troponin I 24.200 H* 19.200 H* (0-0.045) ng/ml Procalcitonin (0-0.5) ng/ml Nasal Screen MRSA (PCR) (Negative) Random Vancomycin mcg/ml 03/07/19 Range/Units 17:10 APTT (21.0-31.0) Seconds PTT Ratio Creatinine (0.6-1.2) mg/dl Est Cr Clr Drug Dosing ml/min Est GFR ( Amer) Est GFR (Non-Af Amer) Lactate (0.4-2.0) mmol/L Troponin I (0-0.045) ng/ml Procalcitonin (0-0.5) ng/ml Nasal Screen MRSA (PCR) Positive A (Negative) Random Vancomycin mcg/ml Resident Activity Tracking Resident Involvement: Resident Care Provided Care Provided: Adult Hospital Medicine (1) Anemia Anemia type: unspecified type Qualified Code(s): D64.9 - Anemia, unspecified
[2019-03-08] MEDS ORDERED: VANCOMYCIN HCL 750 MG in SODIUM CHLORIDE 0.9% 250 ML IV ONE (10:00)
[2019-03-08] MEDS ORDERED: AZITHROMYCIN 500 MG in DEXTROSE 5% 250 ML IV SCH (14:00)
[2019-03-08] MEDS: D5W AND NSS 1,000 ML IV SCH (16:16)
[2019-03-08 16:36] LABS: Partial Thromboplastin Ratio 2.3
[2019-03-08 16:38] LABS: Partial Thromboplastin Time 62.1 Seconds (21.0-31.0)
--- NOTE | 2019-03-08 16:53 | Billing Data ---
Coding Level of Care Code 01162 Subseq Hosp Care Lvl 3
[2019-03-08] MEDS: CLOPIDOGREL BISULFATE 75 MG TAB PO SCH (21:12)
[2019-03-08] MEDS: HEPARIN SODIUM/DEXTROSE 25,000 UNITS/500 ML BAG IV SCH (22:10)
[2019-03-09] MEDS: NITROGLYCERIN 2% OINTMENT 30GM TUBE EXT SCH ×3 (04:32→17:11)
[2019-03-09] MEDS: D5W AND NSS 1,000 ML IV SCH (04:33)
[2019-03-09 07:05] LABS: Hematocrit (blood only) 32.5 % (37-47); Hemoglobin 10.2 g/dL (12.0-16.0); Mean Corpuscular Hemoglobin 30.5 pg (25-34); Mean Corpuscular Hgb Conc 31.4 g/dL (32-36); Mean Corpuscular Volume 97.3 fL (80-100); Mean Platelet Volume 10.5 fL (7.4-10.4); Platelet Count 308 K/uL (130-400); RDW Coefficient of Variation 16.1 % (11.5-14.5); RDW Standard Deviation 57.2 fL (36.4-46.3); Red Blood Count 3.34 M/uL (4.2-5.4); White Blood Count 17.61 K/uL (4.8-10.8)
[2019-03-09 07:25] LABS: Partial Thromboplastin Ratio 1.6; Partial Thromboplastin Time 44.3 Seconds (21.0-31.0)
[2019-03-09] MEDS ORDERED: HEPARIN IV BOLUS 2,000 UNITS in SYRINGE 0 ML IV ONE (07:45)
[2019-03-09 07:52] LABS: Albumin Globulin Ratio 0.6 (0.9-2); Albumin Level 2.8 gm/dl (3.4-5.0); BUN Creatinine Ratio 35.8 (10-20); Bilirubin,Total 0.3 mg/dl (0.2-1); Calcium 9.3 mg/dl (8.5-10.1); Creatinine Clr Calc Pharmacy 16.9 ml/min; Est GFR (African American) 23.2; Globulin 4.3 gm/dl (2.5-4.0); Magnesium 2.7 mg/dl (1.8-2.4); Total Protein 7.1 gm/dl (6.4-8.2)
[2019-03-09 07:53] LABS: Potassium 4.1 mmol/L (3.5-5.1)
[2019-03-09] MEDS ORDERED: CARBOHYDRATES FOR HYPOGLYCEMIA PO PRN (07:57)
[2019-03-09] MEDS ORDERED: GLUCOSE 10 TABS/TUBE PO PRN (07:57)
[2019-03-09] MEDS ORDERED: GLUCAGON FOR INJ 1 MG VIAL SQ PRN (07:57)
[2019-03-09] MEDS ORDERED: GLUCOSE 40% GEL 15 GM TUBE PO PRN (07:57)
[2019-03-09] MEDS ORDERED: DEXTROSE 50% 50 ML SYRINGE IV PRN (07:57)
[2019-03-09 08:08] LABS: Beta-Hydroxybutyrate 1.32 mg/dl (0.2-2.81)
[2019-03-09] MEDS ORDERED: SODIUM CHLORIDE 0.9% 1000ML 1,000 ML IV SCH (08:30)
[2019-03-09] MEDS: ASPIRIN 81 MG ECTAB PO SCH (08:42)
[2019-03-09] MEDS: LACTOBACILLUS ACIDOPHILUS 1 GM PACK PO SCH ×3 (08:42→17:12)
[2019-03-09] MEDS: NEOMYCIN/POLYMYX/BACITR OP OINT 3.5 GM TUBE OP SCH ×3 (08:42→21:22)
[2019-03-09] MEDS: ISOSORBIDE MONO EXTENDED REL 30 MG TABCR PO SCH (08:43)
--- NOTE | 2019-03-09 08:43 | XRay Report ---
XR chest 1V portable CLINICAL HISTORY: 83 years-old Female presenting with new oxygen requirement, confusion. TECHNIQUE: Portable upright AP view of the chest was obtained. COMPARISON: 03/07/2019. FINDINGS: Atherosclerosis of the aortic arch. Cardiac silhouette enlarged. Small right pleural effusion and tra ce left pleural effusion new from prior. Bibasilar opacities right greater than left new from prior. Perihilar added density on the right increased from prior. Heterogeneity of underlying lung parenchym a. No pneumothorax. Degenerative changes of the thoracic spine. Advanced degenerative changes of the glenohumeral joints. External leads project over the right upper quadrant to grating evaluation in th is region. IMPRESSION: 1. Interval development of right greater than left pleural effusions. 2. Interval development of right greater than left bibasilar infiltrates. These may represent atelec tasis, aspiration, or edema. 3. Cardiomegaly. Suspect underlying chronic lung disease. Electronically signed by: Raciel Nguyen M.D. 03/09/2019 8:42 AM
[2019-03-09] MEDS: METOPROLOL SUCC 25MG EXT REL TAB PO SCH (09:01)
[2019-03-09] MEDS: cefTRIAXone SODIUM 1,000 MG in DEXTROSE 5% 50 ML IV SCH (09:20)
--- NOTE | 2019-03-09 09:27 | Hospitalist Progress Note ---
Date of Service March 09, 2019 Assessment & Plan (1) Complicated UTI (urinary tract infection): 83 yo F PMH recent CVA, recent TN, HLD, DM2 causing ulcerations, HFrEF, CKD stage 3 who was previously hospice after last hospital admission and is currently DNR/DNI. 1) Complicated UTI causing AMS - Urine culture grew pansensitive Klebsiella; treating with Ceftriaxone - Indwelling robbins changed upon admission in the ED - AMS improving; still disoriented but able to converse and answer questions 2) Aspiration pneumonia vs. HCAP - new oxygen requirement overnight, WBC bump to 17k - morning CXR showing worsening RLL infiltrate with poor view of costodiaphragmatic angle - given patient's AMS on admission possible aspiration - appearance of PNA >24H after admission concerning for HCAP - MRSA nares positive - coverage for Urine culture, HCAP + aspiration with possibility of MRSA : Vanc, Cefepime - Pt is allergic to metronidazole; will continue to monitor for progression and add additional anaerobic coverage if necessary; hesitant to start clinda given high risk of C Diff development 3) Hypernatremia - likely equilibriating to D5W that had been running - switched to 1/2NS - will continue to monitor 4)Hyperglycemia with DM2 - sugar spike likely due to stress on body from pneumonia and complicated UTI - starting 15 unit basal insulin glargine with tight SSI at meals with carb ratio 1:12 and correction factor 30 - insulin naiive patient 5) NSTEMI - elevated troponins x3, plateaued at 24.2 - evaluated by cardiology team; medical management best option going forward as patient likely wouldn't benefit from catheterization - EKG showed Q waves and indications of prior anterior inferior TN - continue heparin drip and telemetry monitoring - O2 as needed - IV metoprolol - Dual antiplatelet coverage with aspirin and plavix 6) LEEANN on CKD stage 3 - Cr 2.81 on admission, improved to 2.35 with gentle hydration of D5W NS at 8 0ml/hr - will continue to gently hydrate and monitor Cr and UOP - LEEANN likely secondary to poor forward flow from systolic CHF - renal ultrasound in ED showed no sign of hydronephrosis or obstruction 7) HFrEF (30-35%) - CXR shows some degree of pulmonary edema and disease, improved from a prior encounter - strict I/Os - daily weights 8) Tachycardia - secondary to dehydration vs. complicated UTI - IV metoprolol ordered PRN for rates >125 9) Malnutrition - patient is frail and weak - Speech eval: nectar thick liquids and no straws - patient would likely benefit from nutritional supplementation: dietary consulted FEN/GI: Orwell thick liquid DVT ppx: heparin drip Dispo: Telemetry monitoring CODE STATUS: DNR/DNI (2) Dehydration: (3) Multi-vessel coronary artery stenosis: (4) Diabetic polyneuropathy: (5) Hemianopia, homonymous, left: (6) NSTEMI (non-ST elevated myocardial infarction): (7) Anemia: (8) Chronic kidney disease, stage 3: Supervising Physician Co-Signing Physician Notes I personally examined the patient and verified all ruiz points of history and exam, discussed case, and agree with decision making with Dr Orozco. no meaningful HPI or ROS obtainable from pt but she is awake and eating. Updated extensively to the best of my ability and to his satisfaction. vitals noted nad heent nc at mmm breathing unlabored no accessory muscle use good effort. no pallor or icterus. No focal neuro deficits. Chest x-ray noted and compared to prior, labs noted. UTI - klebsiella as infection, initially on Klebsiella but need to escalate antibiotics due to pneumonia (see below) Pneumoniadifficult to discern healthcare associated versus aspirationneed to cover for healthcare associated pathogens given that she has positive MRSA nares, escalate to Vanco and cefepime. Follow closely. Speech eval for concern on aspiration given that it is right lower. TN - NSTEMI likely severe demand ischemia mechanism superimposed on severe diffuse CAD - sepsis precipitated metabolic stress leading to TN. med management as best as possible to balance supply /demand. Seems surprisingly stable in this regard Uncontrolled type 2 diabetes with hyperglycemiagiven a recent A1c of 6.6, almost certainly her acute spike is due to excess physiologic stressinsulin management for now, follow closely. ongoing supportive care, fluids for LEEANN on CKDchanged to a more hypotonic fluid given her mild hypernatremia. Otherwise as above Subjective More verbal and coherently speaking this AM. Still not aware of where she is or year but oriented to person. She denies any pain or trouble breathing. She feels hungry, but is hesitant to take medications by mouth as she has trouble swallowing pills. Review of Systems Constitutional: no fever, no chills, no body aches and no fatigue Respiratory: no cough and no dyspnea Cardiovascular: no chest pain, no dyspnea and no edema Gastrointestinal: no abdominal pain, no nausea, no vomiting, no constipation and no diarrhea/loose stools Genitourinary: no dysuria Physical Exam Eyes: PERRL, conjunctivae normal, anicteric sclerae Respiratory: normal respiratory effort, lungs clear to auscultation no retractions and no cough Auscultation: no crackles, no rhonchi and no wheezes Cardiovascular: Rate/Rhythm: regular rhythm and + tachycardic Heart Sounds: normal S2; no click, no gallop and no murmur Extremities: no calf tenderness and no pedal edema Gastrointestinal (Abdomen): normal bowel sounds, soft, nontender, no hepatosplenomegaly Results & Data Vital Signs (Past 12 Hours) Vital Signs Temp Pulse Pulse Pulse Resp BP BP 03/09/19 08:15 36.5 C 116 H 20 142/74 H 03/09/19 04:32 37 C 107 H 20 130/81 03/09/19 00:00 109 H Pulse Ox 03/09/19 08:15 100 03/09/19 04:32 96 03/09/19 00:00 03/09/19 03/09/19 03/09/19 Range/Units 12:29 11:53 11:52 WBC (4.8-10.8) K/uL RBC (4.2-5.4) M/uL Hgb (12.0-16.0) g/dL Hct (37-47) % MCV (80-100) fL MCH (25-34) pg MCHC (32-36) g/dL RDW Std Deviation (36.4-46.3) fL RDW Coeff of Ciera (11.5-14.5) % Plt Count (130-400) K/uL MPV (7.4-10.4) fL APTT (21.0-31.0) Seconds PTT Ratio Sodium (136-145) mmol/L Potassium (3.5-5.1) mmol/L Chloride (98-107) mmol/L Carbon Dioxide (21-32) mmol/L Anion Gap (3-11) BUN (7-18) mg/dl Creatinine (0.6-1.2) mg/dl Est Cr Clr Drug Dosing ml/min Est GFR ( Amer) Est GFR (Non-Af Amer) BUN/Creatinine Ratio (10-20) Glucose (70-99) mg/dl POC Glucose 357 H* 376 H* (70-99) Calcium (8.5-10.1) mg/dl Magnesium (1.8-2.4) mg/dl Total Bilirubin (0.2-1) mg/dl AST (15-37) U/L ALT (12-78) U/L Alkaline Phosphatase (45-117) U/L Total Protein (6.4-8.2) gm/dl Albumin (3.4-5.0) gm/dl Globulin (2.5-4.0) gm/dl Albumin/Globulin Ratio (0.9-2) Beta-Hydroxybutyric Acd (0.2-2.81) mg/dl Procalcitonin (0-0.5) ng/ml Random Vancomycin 10.3 mcg/ml Urine Legionella Ag 03/09/19 03/09/19 03/09/19 Range/Units 11:04 11:02 08:43 WBC (4.8-10.8) K/uL RBC (4.2-5.4) M/uL Hgb (12.0-16.0) g/dL Hct (37-47) % MCV (80-100) fL MCH (25-34) pg MCHC (32-36) g/dL RDW Std Deviation (36.4-46.3) fL RDW Coeff of Ciera (11.5-14.5) % Plt Count (130-400) K/uL MPV (7.4-10.4) fL APTT (21.0-31.0) Seconds PTT Ratio Sodium (136-145) mmol/L Potassium (3.5-5.1) mmol/L Chloride (98-107) mmol/L Carbon Dioxide (21-32) mmol/L Anion Gap (3-11) BUN (7-18) mg/dl Creatinine (0.6-1.2) mg/dl Est Cr Clr Drug Dosing ml/min Est GFR ( Amer) Est GFR (Non-Af Amer) BUN/Creatinine Ratio (10-20) Glucose (70-99) mg/dl POC Glucose 421 H* 431 H* 399 H* (70-99) Calcium (8.5-10.1) mg/dl Magnesium (1.8-2.4) mg/dl Total Bilirubin (0.2-1) mg/dl AST (15-37) U/L ALT (12-78) U/L Alkaline Phosphatase (45-117) U/L Total Protein (6.4-8.2) gm/dl Albumin (3.4-5.0) gm/dl Globulin (2.5-4.0) gm/dl Albumin/Globulin Ratio (0.9-2) Beta-Hydroxybutyric Acd (0.2-2.81) mg/dl Procalcitonin (0-0.5) ng/ml Random Vancomycin mcg/ml Urine Legionella Ag 03/09/19 03/09/19 03/09/19 Range/Units 06:50 06:50 06:50 WBC 17.61 H (4.8-10.8) K/uL RBC 3.34 L (4.2-5.4) M/uL Hgb 10.2 L (12.0-16.0) g/dL Hct 32.5 L (37-47) % MCV 97.3 (80-100) fL MCH 30.5 (25-34) pg MCHC 31.4 L (32-36) g/dL RDW Std Deviation 57.2 H (36.4-46.3) fL RDW Coeff of Ciera 16.1 H (11.5-14.5) % Plt Count 308 (130-400) K/uL MPV 10.5 H (7.4-10.4) fL APTT 44.3 H (21.0-31.0) Seconds PTT Ratio 1.6 Sodium 148 H D (136-145) mmol/L Potassium 4.1 D (3.5-5.1) mmol/L Chloride 123 H (98-107) mmol/L Carbon Dioxide 16 L (21-32) mmol/L Anion Gap 9.0 (3-11) BUN 79 H (7-18) mg/dl Creatinine 2.22 H (0.6-1.2) mg/dl Est Cr Clr Drug Dosing 16.9 ml/min Est GFR ( Amer) 23.2 Est GFR (Non-Af Amer) 20.0 BUN/Creatinine Ratio 35.8 H (10-20) Glucose 391 H* (70-99) mg/dl POC Glucose (70-99) Calcium 9.3 (8.5-10.1) mg/dl Magnesium 2.7 H (1.8-2.4) mg/dl Total Bilirubin 0.3 (0.2-1) mg/dl AST 84 H (15-37) U/L ALT 20 (12-78) U/L Alkaline Phosphatase 71 (45-117) U/L Total Protein 7.1 (6.4-8.2) gm/dl Albumin 2.8 L (3.4-5.0) gm/dl Globulin 4.3 H (2.5-4.0) gm/dl Albumin/Globulin Ratio 0.6 L (0.9-2) Beta-Hydroxybutyric Acd 1.32 (0.2-2.81) mg/dl Procalcitonin (0-0.5) ng/ml Random Vancomycin mcg/ml Urine Legionella Ag 03/08/19 03/08/19 03/07/19 Range/Units 15:36 07:00 17:10 WBC (4.8-10.8) K/uL RBC (4.2-5.4) M/uL Hgb (12.0-16.0) g/dL Hct (37-47) % MCV (80-100) fL MCH (25-34) pg MCHC (32-36) g/dL RDW Std Deviation (36.4-46.3) fL RDW Coeff of Ciera (11.5-14.5) % Plt Count (130-400) K/uL MPV (7.4-10.4) fL APTT 62.1 H* (21.0-31.0) Seconds PTT Ratio 2.3 Sodium (136-145) mmol/L Potassium (3.5-5.1) mmol/L Chloride (98-107) mmol/L Carbon Dioxide (21-32) mmol/L Anion Gap (3-11) BUN (7-18) mg/dl Creatinine (0.6-1.2) mg/dl Est Cr Clr Drug Dosing ml/min Est GFR ( Amer) Est GFR (Non-Af Amer) BUN/Creatinine Ratio (10-20) Glucose (70-99) mg/dl POC Glucose (70-99) Calcium (8.5-10.1) mg/dl Magnesium (1.8-2.4) mg/dl Total Bilirubin (0.2-1) mg/dl AST (15-37) U/L ALT (12-78) U/L Alkaline Phosphatase (45-117) U/L Total Protein (6.4-8.2) gm/dl Albumin (3.4-5.0) gm/dl Globulin (2.5-4.0) gm/dl Albumin/Globulin Ratio (0.9-2) Beta-Hydroxybutyric Acd (0.2-2.81) mg/dl Procalcitonin 0.30 (0-0.5) ng/ml Random Vancomycin mcg/ml Urine Legionella Ag SEE NOTE Resident Activity Tracking Resident Involvement: Resident Care Provided Care Provided: Adult Hospital Medicine (1) Anemia Anemia type: unspecified type Qualified Code(s): D64.9 - Anemia, unspecified
[2019-03-09] MEDS: HEPARIN SODIUM/DEXTROSE 25,000 UNITS/500 ML BAG IV SCH (09:56)
[2019-03-09] MEDS: INSULIN ASPART 100 UNITS/ML 3 ML PEN SC SCH ×4 (11:19→21:24)
[2019-03-09] MEDS ORDERED: VANCOMYCIN CONSULT ACTIVE PRN (11:21)
[2019-03-09] MEDS ORDERED: LANTUS PER UNIT CHARGE SQ STA (11:57)
[2019-03-09] MEDS: SODIUM CHLORIDE 0.45 % 1,000 ML IV SCH (12:15)
[2019-03-09] MEDS: CEFEPIME 2,000 MG in SYRINGE 7.5 ML IV SCH (12:22)
[2019-03-09 14:17] LABS: Partial Thromboplastin Ratio 2.2
[2019-03-09 14:23] LABS: Partial Thromboplastin Time 58.3 Seconds (21.0-31.0)
--- NOTE | 2019-03-09 14:29 | Pharmacy Report ---
Pharmacy Abx Dose Short Note - Date of Service March 09, 2019 - Assessment & Plan Assessment 83 year old F receiving vancomycin and cefepime for treatment of possible HAP. MRSA nasal swab positive and patient with increase oxygen needs and leukocytosis overnight. Patient last dosed with vanc 750mg IV @1000 yesterday. I ordered a random level to assess before redosing today. Will continue to dose by levels for now. Day # 3 of antimicrobial therapy. Plan Vancomycin * Random level is 10.3 mcg/mL * Redose with 1000 mg IV X 1 * Goal trough level : 15 to 20 mcg/mL * Random level ordered for: 03/10/19 with AM labs Pharmacy will continue to follow and will adjust dose/frequency as necessary. Thank you.
[2019-03-09] MEDS ORDERED: VANCOMYCIN HCL 1,000 MG in SODIUM CHLORIDE 0.9% 250 ML IV SCH (15:00)
--- NOTE | 2019-03-09 16:24 | Cardiology Progress Note ---
Date of Service March 09, 2019 Assessment & Plan (1) NSTEMI (non-ST elevated myocardial infarction): 2. Critical multivessel coronary disease 3. UTI, pneumonia 5. Acute renal insufficiency 6. History of CVA 7. Ischemic cardiomyopathy with chronic CHF 8. Diabetes 9. Peripheral arterial disease Continue medical management of coronary disease. Today patient is able to answer questions and denies any chest pain. On exam well perfused without signs of significant vascular congestion. Evidence of acute renal insufficiency felt to be secondary to volume depletion. Monitor fluid status closely due to cardiomyopathy and history of CHF. Sinus tachycardia improved on increased dose of metoprolol. Family plans to resume hospice at discharge. Subjective Patient now requiring oxygen and WBC higher. Repeat chest xray concerning for pneumonia. On IV antibiotics. More alert today. Answers some questions appropriately. Denies chest pain or shortness of breath. Review of Systems Review of Systems: All systems reviewed & are unremarkable except as noted in HPI & below Physical Exam Physical Exam: General: No acute distress HEENT: Sclerae anicteric. Neck: No appreciable JVD. Lungs: Course breath sounds without rales, rhonchi or wheezes. Cardiac: Regular rate and rhythm. No murmur, gallop or rub. Extremities/vascular: Well perfused. No significant edema Skin: No rash Neurologic: Arousable, non alert. Results & Data Vital Signs (Past 12 Hours) Vital Signs Temp Pulse Pulse Resp BP BP Pulse Ox 03/09/19 16:09 36.6 C 98 H 18 115/73 98 03/09/19 11:59 36.7 C 107 H 22 115/71 95 03/09/19 08:15 36.5 C 116 H 20 142/74 H 100 03/09/19 04:32 37 C 107 H 20 130/81 96 Laboratory Results Laboratory Results - last 24 hr 03/07/19 03/08/19 03/09/19 17:10 15:36 06:50 WBC 17.61 H RBC 3.34 L Hgb 10.2 L Hct 32.5 L MCV 97.3 MCH 30.5 MCHC 31.4 L RDW Std Deviation 57.2 H RDW Coeff of Ciera 16.1 H Plt Count 308 MPV 10.5 H APTT 62.1 H* PTT Ratio 2.3 Sodium Potassium Chloride Carbon Dioxide Anion Gap BUN Creatinine Est Cr Clr Drug Dosing Est GFR ( Amer) Est GFR (Non-Af Amer) BUN/Creatinine Ratio Glucose POC Glucose Calcium Magnesium Total Bilirubin AST ALT Alkaline Phosphatase Total Protein Albumin Globulin Albumin/Globulin Ratio Beta-Hydroxybutyric Acd Random Vancomycin Urine Legionella Ag SEE NOTE 03/09/19 03/09/19 03/09/19 06:50 06:50 08:43 WBC RBC Hgb Hct MCV MCH MCHC RDW Std Deviation RDW Coeff of Ciera Plt Count MPV APTT 44.3 H PTT Ratio 1.6 Sodium 148 H D Potassium 4.1 D Chloride 123 H Carbon Dioxide 16 L Anion Gap 9.0 BUN 79 H Creatinine 2.22 H Est Cr Clr Drug Dosing 16.9 Est GFR ( Amer) 23.2 Est GFR (Non-Af Amer) 20.0 BUN/Creatinine Ratio 35.8 H Glucose 391 H* POC Glucose 399 H* Calcium 9.3 Magnesium 2.7 H Total Bilirubin 0.3 AST 84 H ALT 20 Alkaline Phosphatase 71 Total Protein 7.1 Albumin 2.8 L Globulin 4.3 H Albumin/Globulin Ratio 0.6 L Beta-Hydroxybutyric Acd 1.32 Random Vancomycin Urine Legionella Ag 03/09/19 03/09/19 03/09/19 11:02 11:04 11:52 WBC RBC Hgb Hct MCV MCH MCHC RDW Std Deviation RDW Coeff of Ciera Plt Count MPV APTT PTT Ratio Sodium Potassium Chloride Carbon Dioxide Anion Gap BUN Creatinine Est Cr Clr Drug Dosing Est GFR ( Amer) Est GFR (Non-Af Amer) BUN/Creatinine Ratio Glucose POC Glucose 431 H* 421 H* 376 H* Calcium Magnesium Total Bilirubin AST ALT Alkaline Phosphatase Total Protein Albumin Globulin Albumin/Globulin Ratio Beta-Hydroxybutyric Acd Random Vancomycin Urine Legionella Ag 03/09/19 03/09/19 03/09/19 11:53 12:29 13:42 WBC RBC Hgb Hct MCV MCH MCHC RDW Std Deviation RDW Coeff of Ciera Plt Count MPV APTT 58.3 H* PTT Ratio 2.2 Sodium Potassium Chloride Carbon Dioxide Anion Gap BUN Creatinine Est Cr Clr Drug Dosing Est GFR ( Amer) Est GFR (Non-Af Amer) BUN/Creatinine Ratio Glucose POC Glucose 357 H* Calcium Magnesium Total Bilirubin AST ALT Alkaline Phosphatase Total Protein Albumin Globulin Albumin/Globulin Ratio Beta-Hydroxybutyric Acd Random Vancomycin 10.3 Urine Legionella Ag PG Care Time/CCT Total # of Minutes Spent Total Time Spent with Patient: Total time spent is greater than 50% in coordination of care (as documented) at patient's floor/unit and/or counseling patient:
--- NOTE | 2019-03-09 17:03 | Billing Data ---
Coding Level of Care Code 64618 Subseq Hosp Care Lvl 3
[2019-03-09] MEDS: CLOPIDOGREL BISULFATE 75 MG TAB PO SCH (21:22)
[2019-03-09] MEDS: INSULIN GLARGINE SOLOSTAR 100 UNITS/ML 3 ML PEN SC SCH (21:23)
[2019-03-10] MEDS: NITROGLYCERIN 2% OINTMENT 30GM TUBE EXT SCH ×4 (01:05→18:23)
[2019-03-10] MEDS: HEPARIN SODIUM/DEXTROSE 25,000 UNITS/500 ML BAG IV SCH (01:06)
[2019-03-10] MEDS: SODIUM CHLORIDE 0.45 % 1,000 ML IV SCH ×2 (01:06→17:00)
--- NOTE | 2019-03-10 07:34 | Hospitalist Progress Note ---
Date of Service March 10, 2019 Assessment & Plan (1) Complicated UTI (urinary tract infection): 83 yo F PMH recent CVA, recent [place], HLD, DM2 causing ulcerations, HFrEF, CKD stage 3 who was previously hospice after last hospital admission and is currently DNR/DNI. 1) Complicated UTI causing AMS - Urine culture grew pansensitive Klebsiella; treating with Ceftriaxone - Indwelling robbins changed upon admission in the ED - AMS improving; still disoriented but able to converse and answer questions 2) Aspiration pneumonia vs. HCAP - CXR 03/09 showing worsening RLL infiltrate with poor view of costodiaphragmatic angle - given patient's AMS on admission possible aspiration vs appearance of PNA >24H after admission concerning for HCAP - MRSA nares positive; coverage for Urine culture, HCAP + aspiration with possibility of MRSA : Vanc, Cefepime - Pt is allergic to metronidazole; will continue to monitor for progression and add additional anaerobic coverage if necessary; hesitant to start clinda given high risk of C Diff development 3) Hypernatremia - running 1/2 NS, Na down to 143 from 148 in 13 hours 4)Hyperglycemia with DM2 - sugar spike likely due to stress on body from pneumonia and complicated UTI - starting 15 unit basal insulin glargine with tight SSI at meals with carb ratio 1:12 and correction factor 30 - insulin naiive patient - will start to taper down basal insulin regimen as she clinically improves to avoid hypoglycemia induction 5) NSTEMI - chest pain this AM, EKG showing possible LBBB, troponin 18 which is still decreasing - cardiology; medical management best option going forward as patient likely wouldn't benefit from catheterization - EKG showed Q waves and indications of prior anterior inferior AZ - continue heparin drip and telemetry monitoring - O2 as needed - IV metoprolol - Dual antiplatelet coverage with aspirin and plavix 6) LEEANN on CKD stage 3 - Cr 2.81 on admission, improved to 1.81 with gentle hydration 7) HFrEF (30-35%) - CXR shows some degree of pulmonary edema and disease, improved from a prior encounter - +5L for stay, pt came in dehydrated and dry - no signs of pulm edema or overload on cxr, physical exam - strict I/Os - daily weights 8) Tachycardia - secondary to dehydration vs. complicated UTI - controlled with oral metoprolol 25mg 9) Malnutrition - patient is frail and weak - Speech eval: nectar thick liquids and no straws - patient would likely benefit from nutritional supplementation: dietary consulted FEN/GI: [place] thick liquid DVT ppx: heparin drip Dispo: Telemetry monitoring CODE STATUS: DNR/DNI (2) Dehydration: (3) Multi-vessel coronary artery stenosis: (4) Diabetic polyneuropathy: (5) Hemianopia, homonymous, left: (6) NSTEMI (non-ST elevated myocardial infarction): (7) Anemia: (8) Chronic kidney disease, stage 3: Supervising Physician Co-Signing Physician Notes I personally examined the patient and verified all ruiz points of history and exam, discussed case, and agree with decision making with Dr Orozco. CP this morning hard to describe but L side of chest now gone. otherwise feeling ok. quite limited hx due to mentation but is at least able to interact. vitals noted nad heent nc at mmm breathing unlabored no accessory muscle use good effort. no pallor or icterus. No focal neuro deficits. L sided chest pain reproducible. gentle balanced ligamentous tension done with some im provement in tissue texture. UTI - klebsiella as infection, initially on Klebsiella but need to escalate antibiotics due to pneumonia (see below) - this seems to be improving. Pneumoniadifficult to discern healthcare associated versus aspirationcontinue Vanco and cefepime. Follow closely. Speech eval appreciated. [place] - NSTEMI likely severe demand ischemia mechanism superimposed on severe dif fuse CAD - sepsis precipitated metabolic stress leading to AZ. med management as best as possible to balance supply /demand. fortunately today's CP after further review appears to have been biomechanical. (trop trending down) chest pain - today rib related, OMT as above Uncontrolled type 2 diabetes with hyperglycemiagiven a recent A1c of 6.6, almost certainly her acute spike is due to excess physiologic stresscontinue to titrate insulin management for now, follow closely. ongoing supportive care, fluids for LEEANN on CKD Otherwise as above Subjective Complaining of chest pain this morning. EKG done, showing sinus tachycardia with left bundle branch block and left axis deviation. No ST elevations or depressions. Given higher risk of harm from catheterization vs benefit and relief of symptoms, holding off on getting troponins or activating AZ protocol. Pt is on heparin drip, dual antiplatelet therapy, metoprolol for rate control. Morphine ordered for pain control. Saturating well on RA. Review of Systems Constitutional: + weakness Respiratory: no cough, no dyspnea and no pain on inspiration Cardiovascular: + chest pain; no palpitations and no edema Gastrointestinal: + constipation; no abdominal pain and no vomiting Neurologic: + headache(s); no dizziness Physical Exam Constitutional: more attentive than on admission, however looks a little worse today Eyes: PERRL, conjunctivae normal, anicteric sclerae Respiratory: normal respiratory effort, lungs clear to auscultation no retractions and no cough Auscultation: no crackles, no rhonchi and no wheezes Cardiovascular: Rate/Rhythm: regular rhythm and + tachycardic Heart Sounds: normal S2; no click, no gallop and no murmur Extremities: no calf tenderness and no pedal edema Gastrointestinal (Abdomen): normal bowel sounds, soft, nontender, no hepatosplenomegaly Results & Data Vital Signs (Past 12 Hours) Vital Signs Temp Pulse Pulse Pulse Resp BP Pulse Ox 03/10/19 07:07 36.7 C 92 H 18 98/55 L 92 03/10/19 04:00 36.4 C L 94 H 18 94/61 L 94 03/09/19 23:00 109 H 03/09/19 22:59 37.1 C 94 H 16 98/71 L 91 03/09/19 20:05 36.6 C 98 H 18 95/59 L 94 03/10/19 03/10/19 03/10/19 Range/Units 11:54 11:53 09:14 APTT (21.0-31.0) Seconds PTT Ratio Sodium (136-145) mmol/L Potassium (3.5-5.1) mmol/L Chloride (98-107) mmol/L Carbon Dioxide (21-32) mmol/L Anion Gap (3-11) BUN (7-18) mg/dl Creatinine (0.6-1.2) mg/dl Est Cr Clr Drug Dosing ml/min Est GFR ( Amer) Est GFR (Non-Af Amer) BUN/Creatinine Ratio (10-20) Glucose (70-99) mg/dl POC Glucose 74 65 L* (70-99) Calcium (8.5-10.1) mg/dl Magnesium (1.8-2.4) mg/dl Troponin I 18.900 H* (0-0.045) ng/ml Random Vancomycin mcg/ml 03/10/19 03/10/19 03/09/19 Range/Units 09:14 09:14 16:59 APTT (21.0-31.0) Seconds PTT Ratio Sodium 143 (136-145) mmol/L Potassium 3.4 L D (3.5-5.1) mmol/L Chloride 119 H (98-107) mmol/L Carbon Dioxide 16 L (21-32) mmol/L Anion Gap 8.0 (3-11) BUN 68 H (7-18) mg/dl Creatinine 1.81 H D (0.6-1.2) mg/dl Est Cr Clr Drug Dosing 20.7 ml/min Est GFR ( Amer) 29.7 Est GFR (Non-Af Amer) 25.6 BUN/Creatinine Ratio 37.7 H (10-20) Glucose 95 (70-99) mg/dl POC Glucose 193 H (70-99) Calcium 8.7 (8.5-10.1) mg/dl Magnesium 2.3 (1.8-2.4) mg/dl Troponin I (0-0.045) ng/ml Random Vancomycin 16.7 mcg/ml 03/09/19 Range/Units 13:42 APTT 58.3 H* (21.0-31.0) Seconds PTT Ratio 2.2 Sodium (136-145) mmol/L Potassium (3.5-5.1) mmol/L Chloride (98-107) mmol/L Carbon Dioxide (21-32) mmol/L Anion Gap (3-11) BUN (7-18) mg/dl Creatinine (0.6-1.2) mg/dl Est Cr Clr Drug Dosing ml/min Est GFR ( Amer) Est GFR (Non-Af Amer) BUN/Creatinine Ratio (10-20) Glucose (70-99) mg/dl POC Glucose (70-99) Calcium (8.5-10.1) mg/dl Magnesium (1.8-2.4) mg/dl Troponin I (0-0.045) ng/ml Random Vancomycin mcg/ml 03/10/19 03/10/19 03/09/19 Range/Units 09:14 09:14 16:59 APTT (21.0-31.0) Seconds PTT Ratio Sodium Pending Potassium Pending Chloride Pending Carbon Dioxide Pending Anion Gap Pending BUN Pending Creatinine Pending Est Cr Clr Drug Dosing Pending Est GFR ( Amer) Pending Est GFR (Non-Af Amer) Pending BUN/Creatinine Ratio Pending Glucose Pending POC Glucose 193 H (70-99) Calcium Pending Magnesium Pending Random Vancomycin 16.7 mcg/ml Urine Legionella Ag 03/09/19 03/09/19 03/09/19 Range/Units 13:42 12:29 11:53 APTT 58.3 H* (21.0-31.0) Seconds PTT Ratio 2.2 Sodium Potassium Chloride Carbon Dioxide Anion Gap BUN Creatinine Est Cr Clr Drug Dosing Est GFR ( Amer) Est GFR (Non-Af Amer) BUN/Creatinine Ratio Glucose POC Glucose 357 H* (70-99) Calcium Magnesium Random Vancomycin 10.3 mcg/ml Urine Legionella Ag 03/09/19 03/09/19 03/09/19 Range/Units 11:52 11:04 11:02 APTT (21.0-31.0) Seconds PTT Ratio Sodium Potassium Chloride Carbon Dioxide Anion Gap BUN Creatinine Est Cr Clr Drug Dosing Est GFR ( Amer) Est GFR (Non-Af Amer) BUN/Creatinine Ratio Glucose POC Glucose 376 H* 421 H* 431 H* (70-99) Calcium Magnesium Random Vancomycin mcg/ml Urine Legionella Ag 03/07/19 Range/Units 17:10 APTT (21.0-31.0) Seconds PTT Ratio Sodium Potassium Chloride Carbon Dioxide Anion Gap BUN Creatinine Est Cr Clr Drug Dosing Est GFR ( Amer) Est GFR (Non-Af Amer) BUN/Creatinine Ratio POC Glucose (70-99) Calcium Magnesium Random Vancomycin mcg/ml Urine Legionella Ag SEE NOTE Resident Activity Tracking Resident Involvement: Resident Care Provided Care Provided: Adult Hospital Medicine (1) Anemia Anemia type: unspecified type Qualified Code(s): D64.9 - Anemia, unspecified
[2019-03-10] MEDS: NEOMYCIN/POLYMYX/BACITR OP OINT 3.5 GM TUBE OP SCH ×3 (08:29→20:52)
[2019-03-10] MEDS: ASPIRIN 81 MG ECTAB PO SCH (08:29)
[2019-03-10] MEDS: LACTOBACILLUS ACIDOPHILUS 1 GM PACK PO SCH ×3 (08:29→18:23)
[2019-03-10] MEDS: METOPROLOL SUCC 25MG EXT REL TAB PO SCH (08:29)
[2019-03-10] MEDS: INSULIN ASPART 100 UNITS/ML 3 ML PEN SC SCH ×4 (08:30→20:53)
[2019-03-10] MEDS: ISOSORBIDE MONO EXTENDED REL 30 MG TABCR PO SCH (08:30)
[2019-03-10] MEDS: INSULIN GLARGINE SOLOSTAR 100 UNITS/ML 3 ML PEN SC SCH ×2 (08:31→20:52)
[2019-03-10] MEDS ORDERED: MoRPHine SULFATE 2 MG/ML CARP IV PRN (09:17)
[2019-03-10] MEDS ORDERED: NITROGLYCERIN 2% OINTMENT 30GM TUBE EXT STA (09:17)
[2019-03-10 10:15] LABS: BUN Creatinine Ratio 37.7 (10-20); Calcium 8.7 mg/dl (8.5-10.1); Creatinine Clr Calc Pharmacy 20.7 ml/min; Est GFR (African American) 29.7; Est GFR (Non-African American) 25.6; Magnesium 2.3 mg/dl (1.8-2.4); Potassium 3.4 mmol/L (3.5-5.1)
--- NOTE | 2019-03-10 10:42 | Pharmacy Report ---
Pharmacy Abx Dose Short Note - Date of Service March 10, 2019 - Assessment & Plan Assessment 83 year old F receiving vancomycin/cefepime for treatment of possible HAP. Will continue dosing by levels until renal function stabilizes. Day # 4 of antimicrobial therapy. Plan Vancomycin * Random level of 16.7 mcg/mL is therapeutic * Redose today with 750 mg IV X 1 * Goal trough level : 15 to 20 mcg/mL * Trough or random level ordered for: 03/11/19 with AM labs Pharmacy will continue to follow and will adjust dose/frequency as necessary. Thank you.
[2019-03-10] MEDS ORDERED: VANCOMYCIN HCL 750 MG in SODIUM CHLORIDE 0.9% 250 ML IV SCH (11:00)
[2019-03-10] MEDS ORDERED: POLYETHYLENE (MIRALAX) 17 GM PACK PO PRN (11:04)
[2019-03-10] MEDS ORDERED: POTASSIUM CHLORIDE 20 MEQ TABCR PO ONE (11:45)
[2019-03-10] MEDS: CEFEPIME 2,000 MG in SYRINGE 7.5 ML IV SCH (14:08)
[2019-03-10 16:35] LABS: Basophils # (auto) 0.06 K/uL (0-0.2); Basophils % (auto) 0.4 %; Eosinophils # (auto) 0.34 K/uL (0-0.5); Eosinophils % (auto) 2.5 %; Hematocrit (blood only) 25.5 % (37-47); Hemoglobin 7.9 g/dL (12.0-16.0); Immature Granulocytes # (auto) 0.14 K/uL (0.00-0.02); Lymphocytes # (auto) 2.24 K/uL (1.2-3.4); Lymphocytes % (auto) 16.7 %; Mean Platelet Volume 10.5 fL (7.4-10.4); Monocytes # (auto) 1.05 K/uL (0.11-0.59); Monocytes % (auto) 7.8 %; Neutrophils % (auto) 71.6 %; Platelet Count 240 K/uL (130-400); RDW Coefficient of Variation 16.1 % (11.5-14.5); RDW Standard Deviation 56.6 fL (36.4-46.3); Red Blood Count 2.63 M/uL (4.2-5.4); White Blood Count 13.43 K/uL (4.8-10.8)
[2019-03-10 16:59] LABS: RBC Morphology Unremarkable
--- NOTE | 2019-03-10 18:13 | Billing Data ---
Date of Service March 10, 2019 Coding Level of Care Code 58405 Initial Inpt Care Lvl 3
[2019-03-10] MEDS: CLOPIDOGREL BISULFATE 75 MG TAB PO SCH (20:51)
[2019-03-11] MEDS: SODIUM CHLORIDE 0.45 % 1,000 ML IV SCH (00:35)
[2019-03-11] MEDS: NITROGLYCERIN 2% OINTMENT 30GM TUBE EXT SCH ×5 (00:35→23:22)
[2019-03-11] MEDS: HEPARIN SODIUM/DEXTROSE 25,000 UNITS/500 ML BAG IV SCH (05:09)
[2019-03-11 07:05] LABS: Basophils # (auto) 0.05 K/uL (0-0.2); Basophils % (auto) 0.4 %; Eosinophils # (auto) 0.34 K/uL (0-0.5); Hemoglobin 8.5 g/dL (12.0-16.0); Immature Granulocytes # (auto) 0.05 K/uL (0.00-0.02); Immature Granulocytes % (auto) 0.4 %; Lymphocytes # (auto) 1.91 K/uL (1.2-3.4); Lymphocytes % (auto) 17.1 %; Mean Corpuscular Hemoglobin 31.5 pg (25-34); Mean Corpuscular Hgb Conc 32.7 g/dL (32-36); Mean Corpuscular Volume 96.3 fL (80-100); Mean Platelet Volume 10.5 fL (7.4-10.4); Monocytes # (auto) 0.96 K/uL (0.11-0.59); Monocytes % (auto) 8.6 %; Neutrophils # (auto) 7.85 K/uL (1.4-6.5); Neutrophils % (auto) 70.5 %; Platelet Count 228 K/uL (130-400); RDW Standard Deviation 55.8 fL (36.4-46.3); White Blood Count 11.16 K/uL (4.8-10.8)
[2019-03-11 07:40] LABS: BUN Creatinine Ratio 40.1 (10-20); Calcium 8.2 mg/dl (8.5-10.1); Est GFR (African American) 37.2; Est GFR (Non-African American) 32.1; Magnesium 2.2 mg/dl (1.8-2.4); Partial Thromboplastin Ratio 1.7; Potassium 4.3 mmol/L (3.5-5.1)
[2019-03-11 07:43] LABS: Partial Thromboplastin Time 46.2 Seconds (21.0-31.0)
--- NOTE | 2019-03-11 08:35 | Pharmacy Report ---
Pharmacy Abx Dose Short Note - Date of Service March 11, 2019 - Assessment & Plan Assessment 83 year old F receiving vanco, cefepime for treatment of HAP, MRSA (+) Day # 5/ of antimicrobial therapy for HAP. Plan Vancomycin * Trough level of 21.1 mcg/mL is therapeutic for HAP with MRSA (+) PNA. * Renal fxn improved overnight slightly, pt is at a low risk for vancomycin accumulation. Will give 750mg IV x1 today * Goal trough level for HAP : 15 to ~20 mcg/mL * Random level ordered for: 03/12/19 with AM labs Pharmacy will continue to follow and will adjust dose/frequency as necessary. Thank you.
[2019-03-11] MEDS: METOPROLOL SUCC 25MG EXT REL TAB PO SCH (09:09)
[2019-03-11] MEDS: INSULIN ASPART 100 UNITS/ML 3 ML PEN SC SCH ×4 (09:11→20:49)
[2019-03-11] MEDS: INSULIN GLARGINE SOLOSTAR 100 UNITS/ML 3 ML PEN SC SCH (09:11)
[2019-03-11] MEDS: NEOMYCIN/POLYMYX/BACITR OP OINT 3.5 GM TUBE OP SCH ×3 (09:13→20:47)
[2019-03-11] MEDS: LACTOBACILLUS ACIDOPHILUS 1 GM PACK PO SCH ×3 (09:13→17:53)
[2019-03-11] MEDS: ASPIRIN 81 MG ECTAB PO SCH (09:14)
[2019-03-11] MEDS: ISOSORBIDE MONO EXTENDED REL 30 MG TABCR PO SCH (09:14)
--- NOTE | 2019-03-11 09:38 | Hospitalist Progress Note ---
Date of Service March 11, 2019 Assessment & Plan (1) Complicated UTI (urinary tract infection): 83 yo F PMH recent CVA, recent [place], HLD, DM2 causing ulcerations, HFrEF, CKD stage 3 who was previously hospice after last hospital admission and is currently DNR/DNI. 1) Complicated UTI causing AMS - Urine culture grew pansensitive Klebsiella; treating with Ceftriaxone - Indwelling black changed upon admission in the ED - AMS improving - continue treating with vanc and ceftriaxone into tomorrow; consider flipping to Augmentin tomorrow with potential discharge to cover G- and anaerobes for chronic aspiration pneumonitis 2) Aspiration pneumonia vs. HCAP - CXR 03/09 showing worsening RLL infiltrate with poor view of costodiaphragmatic angle - discussion today sounds like patient chronically aspirates and lung changes may be more of a chronic aspiration pneumonitis 3) Hypernatremia - running 1/2 NS, Na from 148 to 140 in 48 hours. 4)Hyperglycemia with DM2 - sugar spike likely due to stress on body from pneumonia and complicated UTI - starting 15 unit basal insulin glargine with tight SSI at meals with carb ratio 1:12 and correction factor 30 - insulin naiive patient - will start to taper down basal insulin regimen as she clinically improves to avoid hypoglycemia induction 5) NSTEMI - chest pain this AM, EKG showing possible LBBB, troponin 18 which is still decreasing. more likely 2/2 position in bed and PNA - cardiology; medical management best option going forward as patient likely wouldn't benefit from catheterization - discussed changing plavix to brilinta with pharmacy given pt has failed plavix before. Will discuss option with family as Brilinta is not crushable and pt will likely return to hospice care after hospital stay. - continue heparin drip and telemetry monitoring - O2 as needed - PO metoprolol - Dual antiplatelet coverage with aspirin and plavix 6) LEEANN on CKD stage 3 - Cr 2.81 on admission, improved to 1.50 with gentle hydration 7) HFrEF (30-35%) - CXR shows some degree of pulmonary edema and disease, improved from a prior encounter - +7L for stay, pt came in dehydrated and dry. Stopping IVF at this time. - no signs of pulm edema or overload on cxr, physical exam - strict I/Os - daily weights 8) Tachycardia - secondary to dehydration vs. complicated UTI - controlled with oral metoprolol 25mg 9) Malnutrition - patient is frail and weak - Speech eval: nectar thick liquids and no straws - patient would likely benefit from nutritional supplementation: dietary consulted FEN/GI: [place] thick liquid DVT ppx: heparin drip Dispo: Telemetry monitoring CODE STATUS: DNR/DNI (2) Dehydration: (3) Multi-vessel coronary artery stenosis: (4) Diabetic polyneuropathy: (5) Hemianopia, homonymous, left: (6) NSTEMI (non-ST elevated myocardial infarction): (7) Anemia: (8) Chronic kidney disease, stage 3: Supervising Physician Co-Signing Physician Notes I personally examined the patient and verified all ruiz points of history and exam, discussed case, and agree with decision making with Dr Orozco. Overall feeling better and less complaints overall. Generally feeling okay. No new issues. Extensively updated , answered all questions to the best of my ability. vitals noted nad heent nc at mmm breathing unlabored no accessory muscle use good effort. no pallor or icterus. No focal neuro deficits. More awake and alert by the day. UTI - klebsiella as infection, initially on Klebsiella but needed to escalate antibiotics due to pneumonia (see below) -improved, Black catheter was changed in the ER. Pneumoniadifficult to discern healthcare associated versus aspirationcontinue Vanco and cefepime for now, but given her altered mentation, the right-sided pneumonia, and her rather rapid improvement I am starting to favor that this was aspiration. This would certainly allow for easier adjustment of antibiotics at discharge. Given that is not entirely clear we will continue coverage for MRSA and Pseudomonas for now, but with ongoing improvement we could hopefully downgrade to something like oral Augmentin to treat for probable aspiration. [place] - NSTEMI likely severe demand ischemia mechanism superimposed on severe diffuse CAD - sepsis precipitated metabolic stress leading to [place]. med management as best as possible to balance supply /demand. Has now been stable in this regard chest pain -did not recur Uncontrolled type 2 diabetes with hyperglycemiagiven a recent A1c of 6.6, almost certainly her acute spike is due to excess physiologic stresscontinue to titrate insulin management for now (today starting to reduce insulins again) ongoing supportive care, [place] I on CKD improving. Otherwise as above Subjective Continues to improve clinically. Sitting up and eating breakfast at time of interview. Denies any pain or shortness of breath. Does attest to having trouble coordinating breathing and swallowing, and says multiple times a day she has trouble breathing because she "swallows down the wrong tube". Denies any headache. Says her chest pain is improved but still dull and present at baseline. Review of Systems Constitutional: no fever, no chills, no body aches and no fatigue Respiratory: no cough and no dyspnea Cardiovascular: + orthopnea; no dyspnea and no edema Gastrointestinal: no abdominal pain, no nausea, no vomiting, no constipation and no diarrhea/loose stools Genitourinary: no dysuria Physical Exam Eyes: PERRL, conjunctivae normal, anicteric sclerae Respiratory: normal respiratory effort, lungs clear to auscultation no retractions and no cough Auscultation: + diminished lung sounds (at bases bilaterally); no crackles, no rhonchi and no wheezes Cardiovascular: Rate/Rhythm: regular rhythm and + tachycardic Heart Sounds: normal S2; no click, no gallop and no murmur Extremities: no calf tenderness and no pedal edema Gastrointestinal (Abdomen): normal bowel sounds, soft, nontender, no hepatosplenomegaly Results & Data Vital Signs (Past 12 Hours) Vital Signs Temp Pulse Pulse Pulse Resp BP Pulse Ox 03/11/19 07:53 37.1 C 84 20 116/69 98 03/11/19 03:50 37.1 C 78 19 98/62 L 95 03/11/19 00:31 81 03/10/19 23:49 37.2 C 71 20 104/61 99 03/11/19 03/11/19 03/11/19 Range/Units 11:42 07:42 06:48 WBC (4.8-10.8) K/uL RBC (4.2-5.4) M/uL Hgb (12.0-16.0) g/dL Hct (37-47) % MCV (80-100) fL MCH (25-34) pg MCHC (32-36) g/dL RDW Std Deviation (36.4-46.3) fL RDW Coeff of Ciera (11.5-14.5) % Plt Count (130-400) K/uL MPV (7.4-10.4) fL Immature Gran % (Auto) % Neut % (Auto) % Lymph % (Auto) % [place] % (Auto) % Eos % (Auto) % Baso % (Auto) % Immature Gran # (Auto) (0.00-0.02) K/uL Neut # (Auto) (1.4-6.5) K/uL Lymph # (Auto) (1.2-3.4) K/uL [place] # (Auto) (0.11-0.59) K/uL Eos # (Auto) (0-0.5) K/uL Baso # (Auto) (0-0.2) K/uL RBC Morphology APTT 46.2 H* (21.0-31.0) Seconds PTT Ratio 1.7 Sodium (136-145) mmol/L Potassium (3.5-5.1) mmol/L Chloride (98-107) mmol/L Carbon Dioxide (21-32) mmol/L Anion Gap (3-11) BUN (7-18) mg/dl Creatinine (0.6-1.2) mg/dl Est Cr Clr Drug Dosing ml/min Est GFR ( Amer) Est GFR (Non-Af Amer) BUN/Creatinine Ratio (10-20) Glucose (70-99) mg/dl POC Glucose 132 H 114 H (70-99) Calcium (8.5-10.1) mg/dl Magnesium (1.8-2.4) mg/dl Random Vancomycin mcg/ml 03/11/19 03/11/19 03/11/19 Range/Units 06:48 06:48 06:48 WBC 11.16 H (4.8-10.8) K/uL RBC 2.70 L (4.2-5.4) M/uL Hgb 8.5 L (12.0-16.0) g/dL Hct 26.0 L (37-47) % MCV 96.3 (80-100) fL MCH 31.5 (25-34) pg MCHC 32.7 (32-36) g/dL RDW Std Deviation 55.8 H (36.4-46.3) fL RDW Coeff of Ciera 16.0 H (11.5-14.5) % Plt Count 228 (130-400) K/uL MPV 10.5 H (7.4-10.4) fL Immature Gran % (Auto) 0.4 % Neut % (Auto) 70.5 % Lymph % (Auto) 17.1 % [place] % (Auto) 8.6 % Eos % (Auto) 3.0 % Baso % (Auto) 0.4 % Immature Gran # (Auto) 0.05 H (0.00-0.02) K/uL Neut # (Auto) 7.85 H (1.4-6.5) K/uL Lymph # (Auto) 1.91 (1.2-3.4) K/uL [place] # (Auto) 0.96 H (0.11-0.59) K/uL Eos # (Auto) 0.34 (0-0.5) K/uL Baso # (Auto) 0.05 (0-0.2) K/uL RBC Morphology APTT (21.0-31.0) Seconds PTT Ratio Sodium 140 (136-145) mmol/L Potassium 4.3 D (3.5-5.1) mmol/L Chloride 116 H (98-107) mmol/L Carbon Dioxide 16 L (21-32) mmol/L Anion Gap 8.0 (3-11) BUN 60 H (7-18) mg/dl Creatinine 1.50 H D (0.6-1.2) mg/dl Est Cr Clr Drug Dosing 25.0 ml/min Est GFR ( Amer) 37.2 Est GFR (Non-Af Amer) 32.1 BUN/Creatinine Ratio 40.1 H (10-20) Glucose 104 H (70-99) mg/dl POC Glucose (70-99) Calcium 8.2 L (8.5-10.1) mg/dl Magnesium 2.2 (1.8-2.4) mg/dl Random Vancomycin 21.2 mcg/ml 03/10/19 03/10/19 03/10/19 Range/Units 20:18 16:18 15:37 WBC 13.43 H (4.8-10.8) K/uL RBC 2.63 L (4.2-5.4) M/uL Hgb 7.9 L (12.0-16.0) g/dL Hct 25.5 L (37-47) % MCV 97.0 (80-100) fL MCH 30.0 (25-34) pg MCHC 31.0 L (32-36) g/dL RDW Std Deviation 56.6 H (36.4-46.3) fL RDW Coeff of Ciera 16.1 H (11.5-14.5) % Plt Count 240 (130-400) K/uL MPV 10.5 H (7.4-10.4) fL Immature Gran % (Auto) 1.0 % Neut % (Auto) 71.6 % Lymph % (Auto) 16.7 % [place] % (Auto) 7.8 % Eos % (Auto) 2.5 % Baso % (Auto) 0.4 % Immature Gran # (Auto) 0.14 H (0.00-0.02) K/uL Neut # (Auto) 9.60 H (1.4-6.5) K/uL Lymph # (Auto) 2.24 (1.2-3.4) K/uL [place] # (Auto) 1.05 H (0.11-0.59) K/uL Eos # (Auto) 0.34 (0-0.5) K/uL Baso # (Auto) 0.06 (0-0.2) K/uL RBC Morphology Unremarkable APTT (21.0-31.0) Seconds PTT Ratio Sodium (136-145) mmol/L Potassium (3.5-5.1) mmol/L Chloride (98-107) mmol/L Carbon Dioxide (21-32) mmol/L Anion Gap (3-11) BUN (7-18) mg/dl Creatinine (0.6-1.2) mg/dl Est Cr Clr Drug Dosing ml/min Est GFR ( Amer) Est GFR (Non-Af Amer) BUN/Creatinine Ratio (10-20) Glucose (70-99) mg/dl POC Glucose 127 H 117 H (70-99) Calcium (8.5-10.1) mg/dl Magnesium (1.8-2.4) mg/dl Random Vancomycin mcg/ml Resident Activity Tracking Resident Involvement: Resident Care Provided Care Provided: Adult Hospital Medicine (1) Anemia Anemia type: unspecified type Qualified Code(s): D64.9 - Anemia, unspecified
[2019-03-11] MEDS ORDERED: VANCOMYCIN HCL 750 MG in SODIUM CHLORIDE 0.9% 250 ML IV ONE (10:30)
[2019-03-11] MEDS: DOCUSATE SODIUM/SENNA 50/8.6MG TAB PO SCH (12:14)
[2019-03-11] MEDS: CEFEPIME 2,000 MG in SYRINGE 7.5 ML IV SCH (12:22)
--- NOTE | 2019-03-11 19:09 | Billing Data ---
Date of Service March 11, 2019 Coding Level of Care Code 47768 Subseq Hosp Care Lvl 3
[2019-03-11] MEDS: CLOPIDOGREL BISULFATE 75 MG TAB PO SCH (20:48)
[2019-03-12] MEDS: NITROGLYCERIN 2% OINTMENT 30GM TUBE EXT SCH ×3 (04:50→17:26)
[2019-03-12 06:46] LABS: Basophils # (auto) 0.02 K/uL (0-0.2); Basophils % (auto) 0.2 %; Eosinophils # (auto) 0.48 K/uL (0-0.5); Eosinophils % (auto) 3.9 %; Hematocrit (blood only) 26.9 % (37-47); Immature Granulocytes # (auto) 0.09 K/uL (0.00-0.02); Immature Granulocytes % (auto) 0.7 %; Lymphocytes # (auto) 1.47 K/uL (1.2-3.4); Mean Corpuscular Hemoglobin 31.5 pg (25-34); Mean Corpuscular Hgb Conc 33.5 g/dL (32-36); Mean Corpuscular Volume 94.1 fL (80-100); Mean Platelet Volume 10.4 fL (7.4-10.4); Monocytes # (auto) 1.12 K/uL (0.11-0.59); Monocytes % (auto) 9.2 %; Neutrophils # (auto) 9.02 K/uL (1.4-6.5); Platelet Count 237 K/uL (130-400); RDW Coefficient of Variation 15.8 % (11.5-14.5); RDW Standard Deviation 54.7 fL (36.4-46.3); Red Blood Count 2.86 M/uL (4.2-5.4)
[2019-03-12 07:02] LABS: Partial Thromboplastin Ratio 1.6; Partial Thromboplastin Time 42.4 Seconds (21.0-31.0)
[2019-03-12 07:21] LABS: BUN Creatinine Ratio 37.3 (10-20); Calcium 8.2 mg/dl (8.5-10.1); Creatinine Clr Calc Pharmacy 31.4 ml/min; Est GFR (African American) 44.7; Est GFR (Non-African American) 38.5; Potassium 4.4 mmol/L (3.5-5.1)
--- NOTE | 2019-03-12 07:24 | Hospitalist Progress Note ---
Date of Service March 12, 2019 Assessment & Plan (1) Complicated UTI (urinary tract infection): 83 yo F who is medically complicated who was previously hospice after last hospital admission, admitted for complicated UTI and aspiration PNA improving on ABX. 1) Complicated UTI causing AMS - Urine culture from 03/04 grew pansensitive Klebsiella - Indwelling robbins changed upon admission in the ED - AMS improving - d/c Vanc and Cefepime and transitioned to oral Augmentin (suspension). Augmentin will provide gram negative and anaerobic coverage for chronic aspiration pneumonitis 2) Aspiration pneumonia vs. HCAP - CXR 03/09 showing worsening RLL infiltrate with poor view of costodiaphragmatic angle - discussion with family sounds like patient chronically aspirates and lung changes may be more of a chronic aspiration pneumonitis - patient demonstrated quick improvement on Vanc/Cefepime, which suggests that PNA was more likely to be aspiration in etiology, as we would have expect a more tenuous, slow recovery if it were MRSA or Pseudomonal in nature. Transition to PO therapy as above. 3) Hypernatremia -resolved - level at 140 today. 4)Hyperglycemia with DM2 - sugar spike likely due to stress on body from pneumonia and complicated UTI - most recent A1c indicative of tight control at baseline - patient not on any pharmaco therapy at baseline. - glargine insulin 5 units SQ for basal while in hospital with tight SSI at meals with carb ratio 1:12 and correction factor 30 - will d/c insulin therapy at discharge 5) NSTEMI - troponin peaked to 24.2, began to decline - cardiology consulted; medical management best option going forward as patient likely wouldn't benefit from catheterization - discussed changing plavix to brilinta with pharmacy given pt has failed plavix before. Will discuss option with family as Brilinta is not crushable and pt will likely return to hospice care after hospital stay. - d/c heparin drip - O2 as needed - PO metoprolol - Dual antiplatelet coverage with aspirin and plavix 6) LEEANN on CKD stage 3 - improving. -Cr 1.29 today, down from 1.50 7) HFrEF (30-35%) - CXR shows some degree of pulmonary edema and disease, improved from a prior encounter - +7L for stay, pt came in dehydrated and dry. Stopping IVF at this time. - no signs of pulm edema or overload on cxr, physical exam - strict I/Os - daily weights 8) Tachycardia - secondary to dehydration vs. complicated UTI - controlled with oral metoprolol 25mg 9) Malnutrition - patient is frail and weak - Speech eval: nectar thick liquids and no straws - patient would likely benefit from nutritional supplementation: dietary consulted FEN/GI: [place] thick liquid DVT ppx: heparin drip d/c; b/l SCDs Dispo: Telemetry monitoring CODE STATUS: DNR/DNI (2) Dehydration: (3) Multi-vessel coronary artery stenosis: (4) Diabetic polyneuropathy: (5) Hemianopia, homonymous, left: (6) NSTEMI (non-ST elevated myocardial infarction): (7) Anemia: (8) Chronic kidney disease, stage 3: Supervising Physician Co-Signing Physician Notes I personally examined the patient and verified all ruiz points of history and exam, discussed case, and agree with decision making with Dr Freeman. Doing better. No new complaints. Otherwise as above. vitals noted nad heent nc at mmm breathing unlabored no accessory muscle use good effort. no pallor or icterus. No focal neuro deficits. More awake and alert by the day. UTI - klebsiella as infection, Pneumonia has improved and we will de-escalate to Augmentin, this will cover for the UTI as well. Pneumoniadifficult to discern healthcare associated versus aspirationinitially was on Vanco and cefepime to cover for healthcare associated, but given how quickly she got better I suspect it was aspiration. Downgrade to Augmentin Dysphagiaspeech eval and treat, will likely be going home tomorrow, so I would greatly appreciate if speech is able to review diet changes with the as he is her primary caregiver DE - NSTEMI likely severe demand ischemia mechanism superimposed on severe diffuse CAD - sepsis precipitated metabolic stress leading to DE. med management as best as possible to balance supply /demand. Has now been stable in this regardcan stop heparin drip chest pain -did not recur Uncontrolled type 2 diabetes with hyperglycemiagiven a recent A1c of 6.6, almost certainly her acute spike is due to excess physiologic stresscontinue to down titrate insulin management ongoing supportive care, LEEANN on CKD now improved to better than baseline Otherwise as above Subjective No acute events overnight. Sleep well. Discussed care with at bedside Review of Systems Gastrointestinal: + constipation Physical Exam Constitutional: WD/WN, vitals as above Eyes: + anicteric sclerae ENMT: external ear and nose normal, oropharynx normal Neck: normal visual inspection Respiratory: Moving air well. Lungs CTA b/l. No crackles appreciated in RLL. Cardiovascular: RRR, no murmur, no edema Heart Sounds: normal S1 and normal S2 Gastrointestinal (Abdomen): normal bowel sounds, soft, nontender, no hepatosplenomegaly Skin: no rashes, warm and dry Neurologic: Cranial Nerves: + hearing impairment No focal deficits. Psychiatric: Awake, alert, Oriented to person and place but not time Genitourinary: Robbins catheter in place draining елена colored urine without visible blood clots Results & Data Vital Signs (Past 12 Hours) Vital Signs Temp Pulse Pulse Resp BP BP Pulse Ox 03/12/19 03:35 37.3 C 89 120/68 98 03/12/19 00:25 85 03/11/19 23:19 37.1 C 84 18 126/72 98 03/11/19 19:41 37.7 C H 82 18 129/67 96 Resident Activity Tracking Resident Involvement: Resident Care Provided Care Provided: Adult Hospital Medicine (1) Anemia Anemia type: unspecified type Qualified Code(s): D64.9 - Anemia, unspecified
[2019-03-12] MEDS: INSULIN ASPART 100 UNITS/ML 3 ML PEN SC SCH ×4 (08:55→21:12)
[2019-03-12] MEDS: ASPIRIN 81 MG ECTAB PO SCH (08:56)
[2019-03-12] MEDS: ISOSORBIDE MONO EXTENDED REL 30 MG TABCR PO SCH (08:57)
[2019-03-12] MEDS: LACTOBACILLUS ACIDOPHILUS 1 GM PACK PO SCH ×3 (08:57→17:08)
[2019-03-12] MEDS: METOPROLOL SUCC 25MG EXT REL TAB PO SCH (08:57)
[2019-03-12] MEDS: INSULIN GLARGINE SOLOSTAR 100 UNITS/ML 3 ML PEN SC SCH (08:58)
[2019-03-12] MEDS: NEOMYCIN/POLYMYX/BACITR OP OINT 3.5 GM TUBE OP SCH ×3 (08:59→21:12)
[2019-03-12] MEDS: DOCUSATE SODIUM/SENNA 50/8.6MG TAB PO SCH (09:00)
[2019-03-12] MEDS: HEPARIN SODIUM/DEXTROSE 25,000 UNITS/500 ML BAG IV SCH (09:30)
[2019-03-12] MEDS ORDERED: HEPARIN IV BOLUS 2,000 UNITS in SYRINGE 0 ML IV ONE (09:45)
[2019-03-12] MEDS: POLYETHYLENE (MIRALAX) 17 GM PACK PO SCH ×2 (10:45→10:46)
[2019-03-12] MEDS ORDERED: VANCOMYCIN HCL 500 MG in SODIUM CHLORIDE 0.9% 250 ML IV SCH (11:00)
--- NOTE | 2019-03-12 16:58 | Billing Data ---
Date of Service March 12, 2019 Coding Level of Care Code 07500 Subseq Hosp Care Lvl 3
[2019-03-12] MEDS ORDERED: AMOXICILLIN/CLAVULANATE 500 MG TAB PO SCH (21:00)
[2019-03-12] MEDS: CLOPIDOGREL BISULFATE 75 MG TAB PO SCH (21:11)
[2019-03-12] MEDS: AMOXICILLIN/CLAVULANATE SUSP 400MG/5ML 50ML BOTTLE PO SCH (21:11)
[2019-03-13] MEDS: NITROGLYCERIN 2% OINTMENT 30GM TUBE EXT SCH ×3 (00:15→11:55)
[2019-03-13 06:47] LABS: Basophils # (auto) 0.06 K/uL (0-0.2); Basophils % (auto) 0.4 %; Eosinophils # (auto) 0.62 K/uL (0-0.5); Eosinophils % (auto) 4.6 %; Hemoglobin 9.1 g/dL (12.0-16.0); Immature Granulocytes # (auto) 0.12 K/uL (0.00-0.02); Immature Granulocytes % (auto) 0.9 %; Lymphocytes # (auto) 1.46 K/uL (1.2-3.4); Lymphocytes % (auto) 10.9 %; Mean Corpuscular Hemoglobin 31.4 pg (25-34); Mean Corpuscular Hgb Conc 32.5 g/dL (32-36); Mean Corpuscular Volume 96.6 fL (80-100); Mean Platelet Volume 10.2 fL (7.4-10.4); Monocytes # (auto) 1.08 K/uL (0.11-0.59); Monocytes % (auto) 8.1 %; Neutrophils # (auto) 10.04 K/uL (1.4-6.5); Neutrophils % (auto) 75.1 %; Platelet Count 277 K/uL (130-400); RDW Coefficient of Variation 16.2 % (11.5-14.5); RDW Standard Deviation 55.2 fL (36.4-46.3); White Blood Count 13.38 K/uL (4.8-10.8)
[2019-03-13] MEDS ORDERED: POLYETHYLENE (MIRALAX) 17 GM PACK PO STA (08:44)
[2019-03-13] MEDS: DOCUSATE SODIUM/SENNA 50/8.6MG TAB PO SCH (09:20)
[2019-03-13] MEDS: ASPIRIN 81 MG ECTAB PO SCH (09:20)
[2019-03-13] MEDS: ISOSORBIDE MONO EXTENDED REL 30 MG TABCR PO SCH (09:20)
[2019-03-13] MEDS: LACTOBACILLUS ACIDOPHILUS 1 GM PACK PO SCH ×2 (09:20→13:08)
[2019-03-13] MEDS: AMOXICILLIN/CLAVULANATE SUSP 400MG/5ML 50ML BOTTLE PO SCH (09:21)
[2019-03-13] MEDS: METOPROLOL SUCC 25MG EXT REL TAB PO SCH (09:22)
[2019-03-13] MEDS: NEOMYCIN/POLYMYX/BACITR OP OINT 3.5 GM TUBE OP SCH ×2 (09:23→14:00)
[2019-03-13] MEDS: INSULIN GLARGINE SOLOSTAR 100 UNITS/ML 3 ML PEN SC SCH (09:23)
[2019-03-13] MEDS: INSULIN ASPART 100 UNITS/ML 3 ML PEN SC SCH ×2 (09:24→13:08)
[2019-03-13 11:02] VITALS: TEMP 98.8; O2SAT 98
[2019-03-13] MEDS: POLYETHYLENE (MIRALAX) 17 GM PACK PO SCH (11:51)
--- NOTE | 2019-03-13 12:30 | Discharge Summary ---
Date of Service March 13, 2019 Admission HPI Per Admitting Provider 83 years old female with past medical history of coronary artery disease, ischemic cardiomyopathy/stress-induced cardiomyopathy, chronic systolic congestive heart failure with ejection fraction of 30 to 35% On an echo on November 2018, CVA with left homonymous hemianopsia, CVAs were bilaterals, suspected LV thrombus as the source of the emboli., chronic Kidney disease stage 3, she was on hospice at home for her congestive heart failure. 1 week ago she started having chills, hospice nurse to obtain urine sample that showed/UTI. She also developed shortness of breath. As per family her oral intake was very poor. She also developed hallucination, confusion and lethargy. She was brought to the ED for further evaluation and management. On review of her UA, on March 04, 2019 it showed large amount of white blood cells, culture grew Klebsiella pneumonia that is pansensitive. Chest x-ray revealed bilateral consolidation with slight congestion. Admission Exam Per Admitting Provider General: Frail elderly female in moderate acute distress HEENT: Atraumatic , normocephalic /no jaundice /no pallor /anicteric /no dry mucous membrane /normal external ear inspection Neck: Supple /no swelling /central trach Heart: S1/S2 tachycardia/regular rate and rhythm/no gallop /no rub /2/6 murmur Lungs: Decreased air entry bilaterally, generalized wheezing both lung irwin, scattered rhonchi, no chest wall tenderness Abdomen: Soft/nontender/no guarding/no rebound/no organomegaly/no pulsatile mass Musculoskeletal: No swelling/no edema/no tenderness/normal range of motion Neuro exam: Lethargic, easily arousable, follows command but appears to be confused, disoriented to time place and persons Psychiatric unable to evaluate Skin: Small healed ulcer in her left heel, stage II decubitus ulcer present on admission, decubitus 2 x 4 cm Extremity: no pitting edema/no clubbing or cyanosis Principal Diagnosis Complicated UTI Discharge Exam Constitutional: WD/WN, vitals as above Eyes: + anicteric sclerae ENMT: external ear and nose normal, oropharynx normal Neck: normal visual inspection Respiratory: Moving air well. Lungs CTA b/l. No crackles appreciated in RLL. Cardiovascular: RRR, no murmur, no edema Heart Sounds: normal S1 and normal S2 Gastrointestinal (Abdomen): normal bowel sounds, soft, nontender, no hepatosplenomegaly Skin: no rashes, warm and dry Neurologic: Cranial Nerves: + hearing impairment No focal deficits. Psychiatric: Awake, alert, Oriented to person and place but not time Genitourinary: Black catheter in place draining елена colored urine without visible blood clots Discharge Data Allergies Allergy/AdvReac Type Severity Reaction Status Date / Time amitriptyline Allergy Intermediate BLURRED Verified 03/07/19 10:05 DOUBLE VISION gabapentin Allergy Intermediate SHAKES,VISION Verified 03/07/19 10:05 CHANGES latex Allergy Intermediate SKIN GETS Verified 03/07/19 10:05 RAW-PT HAS NO RECOLLECTION meloxicam Allergy Intermediate DIARRHEA Verified 03/07/19 10:05 metformin Allergy Intermediate HOT FLASHES Verified 03/07/19 10:05 pregabalin Allergy Intermediate DIZZINESS, Verified 03/07/19 10:05 SLEEPY acetaminophen Allergy Mild SWEATING Verified 03/07/19 10:05 pioglitazone Allergy Mild SORE Verified 03/07/19 10:05 THROAT,EAts excessively Cipro Allergy Unknown itshiness,red Verified 06/25/16 17:42 streak ciprofloxacin Allergy Unknown itchiness,red Verified 03/07/19 10:05 streak guaifenesin Allergy Unknown UNKNOWN Verified 03/07/19 10:05 metronidazole Allergy Unknown UNKNOWN Verified 03/07/19 10:05 Penicillins Allergy Unknown INJECTION Verified 03/07/19 10:05 UNKNOWN rofecoxib Allergy Unknown UNKNOWN Verified 03/07/19 10:05 rosuvastatin Allergy Unknown UNKNOWN Verified 03/07/19 10:05 simvastatin Allergy Unknown UNKNOWN Verified 03/07/19 10:05 Sulfa (Sulfonamide Allergy Unknown HIVES Verified 03/07/19 10:05 Antibiotics) tramadol Allergy Unknown SWEATING Verified 03/07/19 10:05 Tricyclic Compounds Allergy Unknown ON WINDY Verified 03/07/19 10:05 HILL LIST Consultations 03/07/19 10:32 ED Decision to Admit Stat 03/07/19 16:17 Consult Cardiology Routine Ordered Studies 03/07/19 13:10 US renal/blad retro comp Urgent Hospital Course (1) Complicated UTI (urinary tract infection): Mrs. Jay is an 83 yo medically complicated F who was admitted to [facility] on 03/07/19 from home hospice for evaluation of a contaminated urine same (culture + for Klebsiella) obtained by hospice nurse. On admission her indwelling Black catheter was changed and she was started on antibiotics. She became septic at which time a CXR was obtained and revealed a right lower lobar infiltrate. Antimicrobial treatment was then escalated to Cefepime and Vancomycin to cover for a Healthcare associated pneumonia. Further history revealed recent dysphagia and the pneumonia was therefore presumed to represent a chronic pneumonitis. Complicated UTI causing AMS - Cause was likely indwelling Black catheter. Antibiotic coverage was deescalated to oral Augmentin (suspension), which provided coverage for Klebiella UTI, along with coverage for gram negative and anaerobic etiologies linked to chronic aspiration pneumonitis. She will continue the oral Augmentin for 5 days after discharge, completing a 10 day course. Aspiration pneumonia vs. HCAP - CXR 03/09 showing worsening RLL infiltrate with poor view of costodiaphragmatic angle. Patient had risk factors for HCAP, although discussion with family revealed history of likely chronic aspiration. Patient improved rapidly on Vanc/Cefepime, which lended further support to aspiration PNA etiology. She as transitioned to PO antibiotics as above. Speech evaluation was conducted; therapists recommended aspiration precautions with a nectar thick- liquid diet. NSTEMI - Mrs. Jay has advanced, multivessel coronary disease at baseline. During her November, hospitalization for an NSTEMI, a catheterization was performed, but no intervention was made as patient was felt to be a poor surgical candidate. Two days post catheterization, Mrs. Jay suffered from bilateral occipital strokes. During the present hospitalization, Mrs. Jay's troponin peaked to 24.[address] segment depression, consistent with recurrent NSTEMI. Likely provoked by increased physiologic stress from septic state in the setting of advanced coronary disease. Cardiology was consulted, who recommended continued medical management. Mrs. Jay was placed on a heparin drip, and continued on her home dose of metoprolol, aspirin, and plavix. Hyperglycemia with DM2 - Mrs. Jay's most recent A1c was 6.6. Her blood sugar spiked to mid 400s in the setting of increased metabolic stress (UTI + PNA). She was given low amounts of long acting insulin along with meal-time boluses during her hospitalization. Given that her most recent A1c was below baseline, she was not sent home with any pharmacotherapy. LEEANN on CKD stage 3 - Found to have Cr of 2.81 on admission. Gentle IV fluids were provided and medi cations were renally doses, as appropriate. LEEANN began to resolve with these measures. Cr on day of discharge was 1.29. HFrEF (30-35%) - Patient was given gentle IV fluids for management of septic state. CXR showed some degree of pulmonary edema, although this was improved from most recent study obtained at a prior encounter. She was continued on her home dose of furosemide. She was discharged on 03/13/19 back to home hospice. Total Time Total Time Spent Total Time Spent (In Minutes): <30 Discharge Plan Discharge Items Patient Disposition: Hospice - Home Reason For Visit: SEPSIS Discharge Diagnosis: Complicated UTI and Aspiration Pneumonia Condition on Discharge: Fair Activity: Resume your previous activity Non-emergency contact: Primary Care Provider Call non-emergency contact if: you have any medication questions Follow-up/Referrals: Afia Villa CRNP [Primary Care Provider] - Diet: Full liquid Liquid Consistency: [place] thick Addtl Attending Provider Instructions: You were admitted to [facility] on 03/07/19 for treatment of a urinary tract infection "UTI". Your urinary most likely got infected from your indwelling Black catheter. This catheter was changed out for a new one during your hospital stay. You were treated for the UTI with antibiotics. A chest x-ray was ordered, which showed a pneumonia in the lower aspect of your right lung. This pneumonia was thought to be due to chronic aspiration, or contents from the mouth going into the respiratory system rather than into your stomach. You were also treated for this infection. Please continue to take the antibiotic Augmentin, 10ml, twice daily for 5 days after discharge to complete treatment course. If your breathing worsens of your develop a fever after discharge, please seek medical attention. Speech therapy specialists were consulted during your stay and recommended that you be placed on a nectar-thick liquid diet. All of your pills should either be crushed or taken with a soft food to allow for easy swallowing. The nurse explained to your the details of this diet. While in the hospital, we believe you suffered from a heart attack. You have an underlying history of severe coronary artery disease. The two infections UTI and pneumonia) caused an increase strain on your heart. Cardiology was consulted during your stay and felt as though you would not benefit from a cardiac catheterization procedure. Instead, they recommended treatment of your heart attack with medications only. You should continue to take a daily baby aspirin and plavix every day, in addition to your regular blood pressure medicine. Pending Studies at Discharge: No Stand-Alone Forms: My [facility], Smoking Cessation Medications and DC Order Prescriptions: New amoxicillin-pot clavulanate [Augmentin] 250-62.5 mg/5 mL suspension for reconstitution 10 ml PO BID 5 Days Qty: 100 RF: 0 Continued clopidogrel 75 mg tablet 75 mg PO QPM RF: 0 topiramate 25 mg tablet 25 mg PO QAM Qty: 30 RF: 0 pantoprazole [Protonix] 40 mg tablet,delayed release (DR/EC) 40 mg PO DAILYBB RF: 0 lisinopril 10 mg tablet 10 mg PO QAM RF: 0 polyethylene glycol 3350 [Miralax] 17 gram Powder In Packet 17 g PO BID Qty: 60 RF: 0 furosemide 20 mg tablet 20 mg PO QAM Qty: 0 RF: 0 nitroglycerin [Nitrostat] 0.4 mg Tablet, Sublingual 0.4 mg sublingual Q5M PRN (Reason: chest pain) Qty: 1 RF: 0 metoprolol succinate [Toprol XL] 100 mg tablet extended release 24 hr 100 mg PO DAILY Qty: 30 RF: 5 isosorbide mononitrate 30 mg Tablet Extended Release 24 Hr 30 mg PO QAM Qty: 30 RF: 5 morphine concentrate 100 mg/5 mL (20 mg/mL) solution 0 mg sublingual UD RF: 0 Discharge Orders: Discharge Order (Routine); Ordered 03/13/19 Ordered By: Alicia Freeman Admission Data Admit Date/Time: 03/07/19 12:46 Attending Provider: Alyx Younger Admit Provider: Melecio Melendez Primary Care Provider: Afia Villa Other Providers: Gino Colvin ; Dayday Anderson ; Melecio Melendez ; [place] ; Liu Godwin Other Interventions: Discharge Summary Assessment (RN) Last Done: 03/13/19 12:42 DC Date/Time DO NOT enter until pt leaves facility: 03/13/19 16:10 Supervising Physician Co-Signing Physician Notes I personally examined the patient and verified all ruiz points of history and exam, discussed case, and agree with decision making with Dr Freeman. Doing better. No new complaints. Otherwise as above. initially wants to wait until tomorrow to take her home but notes it's because of a [place] constitution party - and then agrees that it's better to get her home. vitals noted nad heent nc at mmm breathing unlabored no accessory muscle use good effort. no pallor or icterus. No focal neuro deficits. awake, alert and interactive UTI - klebsiella infection - improved. augmentin. Pneumonia has improved doing well on augmentin - safe for home; while initially concerned HAP vs aspiration - the right sided predominance, as well as how quickly she improved, makes me favor aspiration. speech recs taught to . sl creeping up of WBC nonspecific, rest of SIRS parameters are reassuring and procal is trending down. can f/u CBC as outpt depending on how aggressive pt/family want to be in this regard in light of her hospice status. Dysphagiasee above. speech recs taught to by nursing. PA - NSTEMI likely severe demand ischemia mechanism superimposed on severe diffuse CAD - sepsis precipitated metabolic stress leading to PA. med management as best as possible to balance supply /demand. home on home meds. Uncontrolled type 2 diabetes with hyperglycemiagiven a recent A1c of 6.6, almost certainly her acute spike is due to excess physiologic stresssugars have improved to where she can go home w no meds (given A1c 6.6 as baseline, meds would likely cause far more harm than good now that her stress response is improved.) Leeann on CKD - improved. Otherwise as above Resident Activity Tracking Resident Involvement: Resident Care Provided Care Provided: Adult Hospital Medicine
[2019-03-13 12:52] VITALS: BP 131/71; PULSE 84
--- NOTE | 2019-03-13 16:54 | Billing Data ---
Date of Service March 13, 2019 Coding Level of Care Code D/C Day Management <30 mins
== END 2019-03-13 16:10 | disposition hospice, home (50) | DRG 698 ==
LOC: ED 08:38 → SUATTDRO 12:46 → 2S 12:46